=== PATIENT | female | born 1965 | race Caucasian/White ===

== ENCOUNTER 2020-06-11 13:46 | Outpatient (CLI) | payer OTHER, SELFPAY ==
--- NOTE | ~2020-06-11 | MMUS_ITS ---
EXAMINATION: MM screen LT diag RT w amrit, US breast RT limited HISTORY: Screening left mammogram and right diagnostic mammogram for palpable lumps in the upper oute r quadrant and inner right breast. TECHNIQUE: Craniocaudal, mediolateral, and mediolateral oblique 3-D tomosynthesis images of the left breast were performed and synthetic 2-D images were generated. Craniocaudal and mediolateral oblique 3-D tomosynthesis images of the right breast were performed and synthetic 2-D images were generated. CAD analysis was submitted and interpreted. High resolution limited right breast ultrasound was perfo rmed. COMPARISON: 12/14/2018, 05/03/2017, 07/03/2015, 05/13/2015 BREAST PARENCHYMAL COMPOSITION: The breasts are almost entirely fatty. FINDINGS: MAMMOGRAPHIC FINDINGS: No mammographic correlate is identified for the reported palpable abnormalities in the upper outer qu adrant of the right breast or the inner right breast. There is no evidence of suspicious mass, calcif ication, or architectural distortion in either breast to suggest malignancy. There has been no suspi cious interval change. ULTRASOUND: There is no evidence of focal abnormal solid or cystic lesion in the vicinity of the reported palpabl e abnormalities of the right breast. IMPRESSION: 1. No specific mammographic or sonographic correlate is identified for the reported palpable abnormal ities of concern in the right breast. Further evaluation at this time should be based on clinical ass essment. Continued follow-up physical examination is recommended. 2. Recommend routine screening mammography in one year. BI-RADS Category 1: Negative Reviewed, dictated and finalized at location A. IMPRESSION: 1. No specific mammographic or sonographic correlate is identified for the repo rted palpable abnormalities of concern in the right breast. Further evaluation at this time should be based on clinical assessment. Continued follow-up physic al examination is recommended. 2. Recommend routine screening mammography in one year. BI-RADS Category 1: Negative
== END 2020-06-11 13:47 | disposition home or self-care (01) ==
PROVIDERS: PCP Family Medicine; Visit Provider Family Medicine
DX: Z12.31 Encounter for screening mammogram for malignant neoplasm of breast (principal); N63.11 Unspecified lump in the right breast, upper outer quadrant
CPT/HCPCS: 76642; 77063; 77065; 77067

== ENCOUNTER 2020-11-23 09:42 | Outpatient (CLI) | payer OTHER, SELFPAY ==
--- NOTE | ~2020-11-23 | MR_ITS ---
EXAMINATION: MR brain/brain stem wo/w con EXAM DATE: 11/23/2020 10:38 INDICATION: G43.109 - Migraine with aura, not intractable, without status migrainosus. Tremors in abrams ds. TECHNIQUE: Magnetic resonance imaging (MRI) of the brain/brain stem obtained without contrast. Sagit hollis T1, axial diffusion, gradient echo (T2*), T1, T2, FLAIR sequences obtained. Patient was then inj ected with 20 cc intravenous Multihance contrast. Axial and coronal postcontrast T1 weighted sequence s obtained. There is no prior study for comparison. FINDINGS: There are no areas of restricted diffusion to suggest acute infarction. There is no acute hemorrhage seen on the T2*, a hemosiderin sensitive sequence. No intraparenchymal brain mass. The ve ntricles are normal in size. There are no extra-axial collections. Flow voids are seen in the cereb ral arteries on the T2-weighted sequences consistent with their expected patency. The orbits are unr emarkable. Soft tissue is unremarkable. There are no areas of abnormal enhancement on the postcont rast images. IMPRESSION: 1. Normal brain MRI examination. Reviewed, dictated and finalized at location B. FACTURING COORDINATOR
[2020-11-23 10:17] LABS: Estimated Glomerular Filt Rate > 60
== END 2020-11-23 09:43 | disposition home or self-care (01) ==
PROVIDERS: PCP Physician Assistant; Visit Provider Physician Assistant
DX: G43.109 Migraine with aura, not intractable, without status migrainosus (principal); R25.1 Tremor, unspecified
CPT/HCPCS: 70553; A9577

== ENCOUNTER 2021-05-06 17:38 | Outpatient (CLI) | payer OTHER, SELFPAY ==
--- NOTE | ~2021-05-06 | XR_ITS ---
EXAMINATION: XR hip BI 2V w AP pelvis DATE: 05/06/2021 18:00 INDICATION: Chronic hip pain, left greater than right. TECHNIQUE: Anteroposterior view of the pelvis and anteroposterior and frog-leg lateral views of the l eft hip and anteroposterior and frog-leg lateral views of the right hip and were obtained. COMPARISON: CT abdomen and pelvis dated 11/18/2018 FINDINGS: Alignment is normal. No fracture or suspected avascular necrosis. Bilateral hip joint spaces appear n ormal however there are small marginal osteophytes about the femoral heads and acetabula consistent w ith at least mild osteoarthritis. Small amount of heterotopic ossification along the lateral margin o f the subtrochanteric right femur which is likely sequela of old trauma. Mild left-sided and mild to moderate right-sided sacroiliac osteoarthritis. Moderate to severe lower lumbar spondylosis. Several phleboliths in the pelvis. IMPRESSION: 1. Mild bilateral hip osteoarthritis. No acute osseous abnormality. 2. Moderate to severe lower lumbar spondylosis. Reviewed, dictated and finalized at location A.
[2021-05-06 18:20] LABS: Basophils Absolute Auto 0.1 K/mm3 (0.0-0.1); Basophils Percent Auto 0.7 % (0.2-1.2); Eosinophils Absolute Auto 0.1 K/mm3 (0-0.3); Eosinophils Percent Auto 1.4 % (0-4.4); Hemoglobin 13.3 g/dL (12.0-15.0); Immature Granulocyte Absolute 0.01 K/mm3 (0.00-0.031); Immature Granulocyte Percent A 0.1 % (0-0.5); Lymphocytes Absolute Auto 2.89 K/mm3 (0.9-3.2); Lymphocytes Percent Auto 34.2 % (18.3-44.2); Mean Corpuscular HGB Conc 32.4 g/dl (32-36); Mean Corpuscular Hemoglobin 29.8 pg (26-34); Mean Corpuscular Volume 91.7 fl (80-100); Mean Platelet Volume 10.2 fl (7.4-10.4); Monocytes Absolute Auto 0.8 K/mm3 (0.1-0.6); Neutrophils Absolute Auto 4.6 K/mm3 (1.3-6.7); Neutrophils Percent Auto 54.6 % (45.5-73.1); Platelet Count Result 347 k/mm3 (150-375); Red Blood Count 4.47 M/mm3 (4.2-5.4); Red Cell Distribution Width 12.2 % (11.5-14.5); White Blood Count 8.5 K/mm3 (4.5-10.0)
[2021-05-06 18:56] LABS: Erythrocyte Sedimentation Rate 21 mm/hr (0-20)
[2021-05-06 19:22] LABS: Iron 65 ug/dL (37-170)
[2021-05-06 19:32] LABS: Percent Iron Saturation 19 % (20-50)
[2021-05-10 11:56] LABS: ANA Pattern Nuclear, Speckled; ANA Titer 1:40 (Negative); Anti Nuclear Antibody Titer 1:40 (Negative)
[2021-05-10 22:04] LABS: CRP, High Sensitivity 3.4 mg/L (***)
== END 2021-05-06 17:39 | disposition home or self-care (01) ==
PROVIDERS: PCP Internal Medicine; Visit Provider Internal Medicine
DX: R21 Rash and other nonspecific skin eruption (principal); R53.1 Weakness; R53.82 Chronic fatigue, unspecified; R25.1 Tremor, unspecified; F41.9 Anxiety disorder, unspecified; Z86.69 Personal history of other diseases of the nervous system and sense organs; F32.9 Major depressive disorder, single episode, unspecified; M79.7 Fibromyalgia; M16.0 Bilateral primary osteoarthritis of hip; M47.896 Other spondylosis, lumbar region
CPT/HCPCS: 36415; 73521; 82728; 83540; 83550; 85025; 85652; 86038; 86039; 86141

== ENCOUNTER 2021-05-18 07:32 | Outpatient (CLI) | payer OTHER, SELFPAY ==
--- NOTE | ~2021-05-18 | MR_ITS ---
EXAMINATION: MR brain/brain stem wo con DATE: 05/18/2021 08:24 INDICATION: Weakness. Migraine headaches. TECHNIQUE: Magnetic resonance imaging (MRI) of the brain and brainstem was performed without intraven ous contrast. Sequences included sagittal and axial T1-weighted SE, axial diffusion-weighted FS SE, a xial T2*-weighted GRE, axial T2-weighted FLAIR Propeller, and axial T2-weighted Propeller. Apparent d iffusion coefficient (ADC) maps were created. COMPARISON: MRI dated 11/23/2020. FINDINGS: Brain parenchymal volume is normal for age. Normal hightower-white differentiation. No evidence for acute intracranial infarction, hemorrhage, mass or mass effect. Structures of the posterior fossa including 7/8th cranial nerve complexes are normal. Midline sagittal images are unremarkable. No suresh triculomegaly or midline shift. Orbits are symmetric without disconjugate gaze. IMPRESSION: 1. Unremarkable MRI of the brain. Reviewed, dictated and finalized at location B.
== END 2021-05-18 07:33 | disposition home or self-care (01) ==
LOC: ANHIMG 07:38
PROVIDERS: PCP Internal Medicine; Visit Provider Internal Medicine
DX: R53.1 Weakness (principal); H53.9 Unspecified visual disturbance; R53.82 Chronic fatigue, unspecified
CPT/HCPCS: 70551

== ENCOUNTER 2021-06-12 19:11 | Emergency (ER) | payer OTHER, SELFPAY ==
[2021-06-12 19:20] VITALS: BP 151/84; PULSE 94; RESP 18; TEMP 36.9; O2SAT 99
--- NOTE | 2021-06-12 19:27 | ED.NAVMDI ---
HPI - Nausea/Vomiting/Diarrhea General Chief complaint: Nausea/Vomiting/Diarrhea Stated complaint: Reaction to new medication Time Seen by Provider: 06/12/21 19:27 History of Present Illness HPI Narrative: Severe headache and nausea since yesterday. The headache is similar to her usual migraine, but worse. The nausea is associated with frequent belching. She believes that her symptoms are due to a new medication that she started for Parkinson's disease, Pramipexole. She was on it for less than 24 hours when symptoms first appeared. She did not take her dose tonight. She also recently started treatment with citalopram. She reports that she skipped her dose yesterday, but took it today. Related Data Home Medications Medication Instructions Recorded Confirmed pramipexole 0.25 mg tablet 0.25 mg PO TID 06/11/21 06/11/21 Allergies Allergy/AdvReac Type Severity Reaction Status Date / Time No Known Allergies Allergy Verified 06/12/21 19:30 Review of Systems Review of Systems: All systems reviewed & are unremarkable except as noted in HPI and below Constitutional: Constitutional: Denies fever(s) Eyes: Eyes: Denies change in vision and Reports photophobia Cardiovascular: Cardiovascular: Denies chest pain Respiratory: Respiratory: Denies dyspnea Gastrointestinal: Gastrointestinal: Denies abdominal pain, Denies diarrhea, Reports nausea and Denies vomiting Genitourinary: Genitourinary: Reports no additional female genitourinary complaints Neurologic: Denies dizziness and Denies weakness Psychiatric: Psychiatric: Reports anxiety PMFSH Past Medical History Medical History Anxiety and depression Arthritis delivery delivered x4 82,84,87,93 Depression Fatigue Fibromyalgia syndrome Generalized weakness History of Lyme disease Malar rash Mitral valve regurgitation GAVIOTA on CPAP Pulmonary hypertension Tremor of right hand Vision changes Surgical History Surgical History History of appendectomy 1984 History of D&C 15yrs old History of hysterectomy 2015 still has ovaries S/P laparoscopic surgery ovary drained x2 Family History Family History Father Heart disease Mother Hypertension Depression Sibling Depression Thyroid disorder Unknown Asthma Shwachman-Jane syndrome Grandparent Cancer Hypertension Thyroid disorder Grandparent Heart disease Other Carcinoma of colon Family history of arthritis Family history of migraine headaches Family history of obesity Family history of osteoporosis Social History Social History Smoking status: Never smoker Second hand tobacco smoke exposure: No Smoking end date: 11/29/82 Alcohol intake: never Substance use: never Exam Const: General: no acute distress and alert Nutritional Appearance: obese Orientation/consciousness: patient oriented x3 Other: Frequent belching HENMT: Head: normal to inspection Neck: Neck: normal visual inspection Resp: Effort & Inspection: normal respiratory effort Auscultation: clear to auscultation bilaterally Cardio: Rate: regular rate Rhythm: regular rhythm GI: GI Palp: Yes Soft to palpation, No Tenderness to palpation present (GI), No Guarding due to palpation present (GI) and No Rebound tenderness present Skin: General skin exam: normal color Neuro: General: patient oriented x3, moves all extremities and CN's II-XI intact bilaterally Speech: normal speech Other: right hand tremor Extrem: General: normal to inspection Psych: Affect: Anxious affect present Course Vital Signs Vital signs: Vital Signs Temperature 36.9 C 06/12/21 19:20 Pulse Rate 94 06/12/21 19:20 Respiratory Rate 18 06/12/21 19:20 Blood Pressure 151/84 H 06/12/21
--- NOTE | 2021-06-12 20:00 | PC.NURSE ---
Pt aware of need for urine sample, unable to void at this time. Refusing straight catheter at this time. Urine cup at bedside.
[2021-06-12 20:03] LABS: Basophils Percent Auto 0.4 % (0.2-1.2); Eosinophils Absolute Auto 0.1 K/mm3 (0-0.3); Eosinophils Percent Auto 1.1 % (0-4.4); Hematocrit 41.7 % (37.0-47.0); Hemoglobin 13.6 g/dL (12.0-15.0); Immature Granulocyte Absolute 0.03 K/mm3 (0.00-0.031); Immature Granulocyte Percent A 0.3 % (0-0.5); Lymphocytes Percent Auto 22.4 % (18.3-44.2); Mean Corpuscular HGB Conc 32.6 g/dl (32-36); Mean Corpuscular Hemoglobin 29.3 pg (26-34); Mean Corpuscular Volume 89.9 fl (80-100); Mean Platelet Volume 9.9 fl (7.4-10.4); Monocytes Absolute Auto 0.9 K/mm3 (0.1-0.6); Monocytes Percent Auto 8.3 % (2.6-8.5); Neutrophils Percent Auto 67.5 % (45.5-73.1); Platelet Count Result 331 k/mm3 (150-375); Red Blood Count 4.64 M/mm3 (4.2-5.4); Red Cell Distribution Width 12.4 % (11.5-14.5); White Blood Count 10.3 K/mm3 (4.5-10.0)
[2021-06-12] MEDS: SODIUM CHLORIDE 0.9% IV 1,000 ML 999 ML IV CONT (20:10)
[2021-06-12] MEDS: diphenhydrAMINE HCl INJ 50 MG/ML VIAL IV PUSH (20:10)
[2021-06-12] MEDS: PROCHLORPERAZINE EDISYLATE 10 MG/2 ML VIAL IV PUSH (20:10)
[2021-06-12 20:13] LABS: Alanine Aminotransferase 52 U/L (4-35); Albumin Level 4.6 g/dL (3.5-5.1); Alkaline Phosphatase 114 U/L (38-126); Anion Gap 8 mmol/L (8-16); Aspartate Amino Transferase 47 U/L (14-36); Bilirubin,Total 1.3 mg/dL (0.2-1.3); Blood Urea Nitrogen 20 mg/dL (7-17); Calcium 9.6 mg/dL (8.4-10.2); Carbon Dioxide 30 mmol/L (22-30); Chloride 97 mmol/L (98-107); Estimated CRCL calculation 132 ml/min; Estimated Glomerular Filt Rate > 60; Glucose 123 mg/dL (65-105); Lipase 39 U/L (23-300); Potassium 3.3 mmol/L (3.4-5.0); Sodium 135 mmol/L (137-145)
[2021-06-12 20:32] VITALS: BP 124/69; PULSE 73; RESP 24; O2SAT 94
--- NOTE | 2021-06-12 20:46 | ECG_ITS ---
Measurements Intervals Amber Rate: 87 P: 35 GA: 148 QRS: 4 QRSD: 94 T: 39 QT: 382 QTc: 461 Interpretive Statements SINUS RHYTHM DELAYED PRECORDIAL R/S TRANSITION CONSIDER INFERIOR INFARCT, AGE INDETERMINATE BORDERLINE ST-T WAVE ABNORMALITY- ANT/HIGH LAT LEADS BASELINE ARTIFACT- II, AVF, V3-V6 ABNORMAL ECG Electronically Signed On 06-13-2021 6:43:53 CDT by He Frias D.O.
[2021-06-12 21:02] VITALS: BP 121/67; PULSE 84; RESP 15; O2SAT 95
[2021-06-12 21:32] VITALS: BP 102/69; PULSE 85; RESP 23; O2SAT 95
[2021-06-12 22:10] LABS: Add Urine Microscopic? YES; Appearance Urine Clear (Clear); Bilirubin Urine Negative (Negative); Blood Urine 1+ (Negative); Color Urine Yellow (Yellow); Glucose Urine UA Negative (Negative); Ketones Urine Trace mg/dL (Negative); Leukocyte Esterase Ur 2+ LEU/UL (Negative); Mucus Urine Few /lpf; Nitrate Urine Negative (Negative); Protein Urine 1+ mg/dL (Negative); RBC Urine 21-50 /hpf (0-2); Squamous Epithelial Cell Urine Few /hpf (Few); Urobilinogen Urine Negative mg/dL (<2.0); WBC Urine 31-50 /hpf
[2021-06-12 22:14] LABS: Specific Grav Ur 1.034 (1.001-1.035)
[2021-06-12 22:30] VITALS: BP 116/77; PULSE 91; RESP 16; O2SAT 98
== END 2021-06-12 22:31 | disposition home or self-care (01) ==
PROVIDERS: Emergency Provider Emergency Medicine; PCP Internal Medicine
DX: R51.9 Headache, unspecified (principal); R11.0 Nausea; M19.90 Unspecified osteoarthritis, unspecified site; M79.7 Fibromyalgia; I34.0 Nonrheumatic mitral (valve) insufficiency; G47.33 Obstructive sleep apnea (adult) (pediatric); I27.20 Pulmonary hypertension, unspecified
CPT/HCPCS: 36415; 80053; 81001; 83690; 85025; 87086; 93005; 96361; 96365; 96375; 99284; J0131; J0780; J1200; J7030

== ENCOUNTER → 2021-06-27 07:02 | Outpatient (CLI) | payer OTHER, SELFPAY ==
[2021-06-27 18:53] LABS: SARS-CoV-2 RNA PCR Negative
== END ==
PROVIDERS: PCP Internal Medicine; Visit Provider Internal Medicine
DX: R43.0 Anosmia (principal); J06.9 Acute upper respiratory infection, unspecified; Z20.822 Contact with and (suspected) exposure to COVID-19
CPT/HCPCS: C9803; U0003; U0005

== ENCOUNTER 2021-06-30 13:10 | Outpatient (CLI) | payer OTHER, SELFPAY ==
--- NOTE | ~2021-06-30 | XR_ITS ---
XR chest 2V DATE: 06/30/2021 13:29 INDICATION: Acute upper respiratory infection. TECHNIQUE: 2 views COMPARISON: 07/04/2019 2 view chest FINDINGS: Normal heart size. No hilar or mediastinal enlargement. No pulmonary infiltrate or consolidation, pleural effusion or pulmonary vascular congestion or pneumo thorax. Osteopenia. IMPRESSION: No active cardiopulmonary disease Reviewed, dictated and finalized at location B.
== END 2021-06-30 13:11 | disposition home or self-care (01) ==
PROVIDERS: PCP Internal Medicine; Visit Provider Internal Medicine
DX: J06.9 Acute upper respiratory infection, unspecified (principal)
CPT/HCPCS: 71046

== ENCOUNTER → 2021-09-04 02:31 | Outpatient (CLI) | payer OTHER, SELFPAY ==
[2021-09-04 17:37] LABS: SARS-CoV-2 RNA PCR Negative
== END ==
PROVIDERS: PCP Internal Medicine; Visit Provider Internal Medicine
DX: R68.89 Other general symptoms and signs (principal); Z20.822 Contact with and (suspected) exposure to COVID-19
CPT/HCPCS: C9803; U0003; U0005

== ENCOUNTER 2021-09-20 08:25 | Outpatient (CLI) | payer OTHER, SELFPAY ==
[2021-09-20 09:30] LABS: Alanine Aminotransferase 27 U/L (4-35); Albumin Level 4.4 g/dL (3.5-5.1); Alkaline Phosphatase 84 U/L (38-126); Anion Gap 7 mmol/L (8-16); Aspartate Amino Transferase 31 U/L (14-36); Bilirubin,Total 1.5 mg/dL (0.2-1.3); Blood Urea Nitrogen 17 mg/dL (7-17); Calcium 9.6 mg/dL (8.4-10.2); Carbon Dioxide 32 mmol/L (22-30); Chloride 100 mmol/L (98-107); Estimated Glomerular Filt Rate > 60; Glucose 106 mg/dL (65-110); Potassium 3.5 mmol/L (3.4-5.0); Sodium 139 mmol/L (137-145)
== END 2021-09-20 08:26 | disposition home or self-care (01) ==
LOC: ANHLAB 08:27
PROVIDERS: PCP Internal Medicine; Visit Provider Internal Medicine
DX: F41.9 Anxiety disorder, unspecified (principal); M79.7 Fibromyalgia
CPT/HCPCS: 36415; 80053

== ENCOUNTER 2021-09-25 17:30 | Outpatient (CLI) | payer OTHER, SELFPAY ==
--- NOTE | ~2021-09-25 | XR_ITS ---
EXAMINATION: XR chest 2V 09/25/2021 18:01 INDICATION: Chronic cough PROCEDURE: 2 view chest COMPARISON: Comparison to multiple prior studies sequentially, with oldest reviewed study dated 11/2014. FINDINGS: The lungs are clear. Chronic lingular atelectasis/scarring. The cardiomediastinal silhouett e is within normal limits. There are no pleural effusions. There is no pneumothorax suspected. IMPRESSION: 1: NO ACUTE CARDIOPULMONARY DISEASE. Reviewed, dictated and finalized at location A.
== END 2021-09-25 17:31 | disposition home or self-care (01) ==
LOC: ANHIMG 17:40
PROVIDERS: PCP Nurse Practitioner Family; Visit Provider Nurse Practitioner Family
DX: R05.9 Cough, unspecified (principal)
CPT/HCPCS: 71046

== ENCOUNTER 2021-10-08 15:56 | Outpatient (CLI) | payer OTHER, SELFPAY ==
--- NOTE | ~2021-10-08 | CT_ITS ---
EXAMINATION: CT diagnostic chest wo con DATE: 10/08/2021 16:20 INDICATION: Chronic cough TECHNIQUE: Computed tomography (CT) of the chest was performed without intravenous contrast. The dose -length product was 369.15 mGy-cm. Automated exposure control and iterative reconstruction technique were employed. COMPARISON: CT dated 04/18/2019 FINDINGS: Heart size is normal. No significant pleural or pericardial effusion. Minimal atheroscleros is. No thoracic lymphadenopathy. Upper abdomen is unremarkable. There are areas of chronic atelectasi s in the right upper lobe, right middle lobe and lingula. There is dependent atelectasis. No endobron chial lesions. No pneumothorax. There is a 7 mm groundglass nodule in the left lower lobe, image 104, likely benign. No endobronchial lesions. There is a 4 mm nodule in the left upper lobe, coronal imag e 52. IMPRESSION: 1. Groundglass nodule left lower lobe measuring 7 mm. 4 mm left upper lobe nodule. Consider follow-up CT chest in 12 months. 2: Chronic bilateral atelectasis. Reviewed, dictated and finalized at location A. GAGE LOAN OFFICER ORIGINATOR IMPRESSION: 1. Groundglass nodule left lower lobe measuring 7 mm. 4 mm left upper lobe nodu le. Consider follow-up CT chest in 12 months. 2: Chronic bilateral atelectasis.
--- OUTSIDE RECORDS SUMMARY | 2021-10-08 22:06 | XMS_ITS | Referral Summary ---
:1965 Author Organization [facility] Address [address] [place] [id number] [place] [address] Care Team Providers Name Role Phone Nancy Alvares Primary Care Provider Reason for Referral Procedure (Routine) - New Request Specialty Diagnoses / Procedures Referred By Contact Refer red To Contact Diagnoses Chronic cough Nancy Alvares FNP Procedures Complete PFT (pre/post Jostin, Lung Vol, Diff Capacity) ([id number], [id number], [id number], [id number]) [address] [place] [address] Referral ID Status Reason Start Date Expiration Date Visits V isits Requested Authorized [id number] New Request 10/06/2021 11/06/2022 1 1 FRONT END WEB DEVELOPER Consultation (Routine) - New Request Specialty Diagnoses / Procedures Referred By Contact Refer red To Contact SLEEP & RESPIRATORY Diagnoses Chronic cough Nancy Alvares FNP [facility] [phone] [place] [phone] Fax: Referral ID S
== END 2021-10-08 15:57 | disposition home or self-care (01) ==
PROVIDERS: PCP Nurse Practitioner Family; Visit Provider Nurse Practitioner Family
DX: R05.3 Chronic cough (principal); R91.8 Other nonspecific abnormal finding of lung field
CPT/HCPCS: 71250

== ENCOUNTER 2021-11-06 14:29 | Outpatient (CLI) | payer OTHER, SELFPAY ==
--- NOTE | 2021-11-07 17:05 | WPDPFTINT ---
PFT Procedure Performed PFT Procedure Performed Spirometry with Pre/Post Bronchodilator Plethysmography (Lung Vol) Diffusing Cap (DLCO) Flow Vol Loop PFT Interpretation Lung volumes were measured with the body plethysmography method. The diminished lung volumes are indicative of a restrictive respiratory disease. Spirometry showed normal expiratory flow rates and a normal FEV1 to FVC ratio of 80%. Following administration of a bronchodilator, there was no significant increase in expiratory flow rates. Lung diffusion capacity is within the normal range at 94% predicted. The flow volume loop is unremarkable. Overall, the pulmonary function testing is consistent with obesity. Clinical correlation advised. Impression: Mild restrictive respiratory disease. Lung diffusion capacity within normal range
== END 2021-11-06 14:30 | disposition home or self-care (01) ==
PROVIDERS: PCP Nurse Practitioner Family; Visit Provider Nurse Practitioner Family
DX: R05.3 Chronic cough (principal); R94.2 Abnormal results of pulmonary function studies
CPT/HCPCS: 94060; 94726; 94729

== ENCOUNTER 2021-11-11 16:13 | Outpatient (CLI) | payer OTHER, SELFPAY ==
[2021-11-11 16:52] LABS: Basophils Absolute Auto 0.1 K/mm3 (0.0-0.1); Basophils Percent Auto 0.6 % (0.2-1.2); Eosinophils Absolute Auto 0.1 K/mm3 (0-0.3); Hematocrit 41.9 % (37.0-47.0); Hemoglobin 13.5 g/dL (12.0-15.0); Immature Granulocyte Absolute 0.03 K/mm3 (0.00-0.031); Immature Granulocyte Percent A 0.3 % (0-0.5); Lymphocytes Absolute Auto 2.87 K/mm3 (0.9-3.2); Lymphocytes Percent Auto 25.2 % (18.3-44.2); Mean Corpuscular HGB Conc 32.2 g/dl (32-36); Mean Corpuscular Hemoglobin 29.5 pg (26-34); Mean Corpuscular Volume 91.5 fl (80-100); Mean Platelet Volume 9.8 fl (7.4-10.4); Monocytes Absolute Auto 0.9 K/mm3 (0.1-0.6); Monocytes Percent Auto 7.7 % (2.6-8.5); Neutrophils Absolute Auto 7.4 K/mm3 (1.3-6.7); Neutrophils Percent Auto 65.2 % (45.5-73.1); Platelet Count Result 356 k/mm3 (150-375); Red Blood Count 4.58 M/mm3 (4.2-5.4); Red Cell Distribution Width 13.2 % (11.5-14.5); White Blood Count 11.4 K/mm3 (4.5-10.0)
== END 2021-11-11 16:14 | disposition home or self-care (01) ==
PROVIDERS: PCP Nurse Practitioner Family; Visit Provider Nurse Practitioner Family
DX: R05.3 Chronic cough (principal)
CPT/HCPCS: 36415; 85025

== ENCOUNTER → 2021-12-12 00:52 | Outpatient (CLI) | payer OTHER, SELFPAY ==
[2021-12-13 18:18] LABS: SARS-CoV-2 RNA PCR Positive
== END ==
PROVIDERS: PCP Nurse Practitioner Family; Visit Provider Nurse Practitioner Family
DX: U07.1 COVID-19 (principal)
CPT/HCPCS: C9803; U0003; U0005

== ENCOUNTER 2022-07-17 14:43 | Outpatient (CLI) | payer OTHER, SELFPAY ==
--- NOTE | ~2022-07-17 | US_ITS ---
EXAMINATION: US pelvic complete w TV DATE: 07/17/2022 15:24 INDICATION: Pelvic and perineal pain Comparison:Ultrasound dated 05/01/2017 TECHNIQUE: Multiple transabdominal and endovaginal sonographic images of the pelvis performed. FINDINGS: The uterus is surgically absent. The right ovary measures 1.7 x 1.7 x 1 cm. Normal doppler signal in the right ovaries. The left ovary is not visualized, likely atrophic. There is no free fluid in the pelvis. There are no abnormal masses seen on either side. IMPRESSION: 1. Unremarkable pelvic ultrasound post hysterectomy. Reviewed, dictated and finalized at location B.
== END 2022-07-17 14:44 | disposition home or self-care (01) ==
LOC: ANHIMG 14:44
PROVIDERS: PCP Nurse Practitioner Family; Visit Provider Student in an Organized Health Care Education/Training Program
DX: R10.2 Pelvic and perineal pain (principal)
CPT/HCPCS: 76830; 76856

== ENCOUNTER 2022-09-26 09:38 | Outpatient (CLI) | payer OTHER, SELFPAY ==
--- NOTE | ~2022-09-26 | MM_ITS ---
EXAMINATION: MM screening [facility] BI w amrit HISTORY: Screening TECHNIQUE: Craniocaudal and mediolateral oblique 3-D tomosynthesis images were obtained and synthetic 2-D images were generated. CAD analysis was submitted and interpreted. COMPARISON: Comparison to multiple prior studies sequentially, with oldest reviewed study dated 10/30. BREAST PARENCHYMAL COMPOSITION: There are scattered areas of fibroglandular density. FINDINGS: There is no evidence of suspicious mass, calcification, or architectural distortion to sugg est malignancy in either breast. There has been no suspicious interval change. IMPRESSION: 1. No mammographic evidence of malignancy. 2. Recommend routine screening mammography in one year. BI-RADS Category 1: Negative Reviewed, dictated and finalized at location A.
--- NOTE | ~2022-09-26 | DEXA_ITS ---
Bone Density Report Name: LUZ DOUGLAS Age: 57 Sex: Female Ethnicity: White Date of : 1965 Indication: postmenopausal; screening for osteoporosis; hysterectomy; Referring Provider: JULIANA MORALES Study: Bone densitometry was performed. Exam Date: September 26, 2022 Accession number: [id number] Bone Density: Region BMD T-score Z-score Classification AP Spine(L1-L4) 0.899 -1.3 -0.1 Osteopenia Femoral Neck (Left) 0.709 -1.3 -0.1 Osteopenia Total Hip (Left) 0.891 -0.4 0.4 Normal Femoral Neck (Right) 0.677 -1.5 -0.4 Osteopenia Total Hip (Right) 0.892 -0.4 0.4 Normal Total Hip Mean 0.892 -0.4 0.4 Normal World Health Organization criteria for BMD impression classify patients as: Normal (T-score at or above -1.0), Osteopenia (T-score between -1.0 and -2.5), or Osteoporosis (T-score at or below -2.5). 10-year Fracture Risk(1): Major Osteoporotic Fracture 7.1% Hip Fracture 0.6% Reported Risk Factors: [place] (), Neck BMD=0.677, BMI=32.9 (1) FRAX(R) Version 3.08. Fracture probability calculated for an untreated patient. Fracture probability may be lower if the patient has received treatment. Clinical Information Provided by Patient: Has the following medical conditions: Hysterectomy Patient maximum height was 66 Menopause Age: 50 No regular weight bearing exercise Drinks caffeinated beverages Onset of menses at age 14 Number of children 4 Impression: The patient has low bone mass, based on the Right Femoral Neck T-score. The patient has an estimated ten-year risk of hip fracture of 0.6% and an estimated ten-year risk of major fracture of 7.1%, based on the WHO FRAX algorithm. Discussion: BONE DENSITY IS LOW AT ONE OR MORE SKELETAL SITES. This patient's lowest T-score is low at one or more skeletal sites. It meets the World Health Organization's (WHO) criteria for ?low bone mass? (T-score between -1.0 and -2.5). The patient's 10-year risk of fracture as calculated by FRAX is less than the threshold where pharmacological therapy is recommended by the National Osteoporosis Foundation (NOF). However, all treatment decisions require clinical judgment and consideration of individual patient factors, including patient preferences, comorbidities, previous drug use, risk factors not captured in the FRAX model (e.g., frailty, falls, vitamin D deficiency, increased bone turnover, interval significant decline in bone density) and possible under or overestimation of fracture risk by FRAX. The patient should follow a healthful lifestyle (good nutrition with adequate calcium and vitamin D, and appropriate weight-bearing exercise). Follow-Up: Consider repeating this study in 2 to 3 years to reassess this patient's status, or sooner if there is some new clinical indication. R
== END 2022-09-26 09:39 | disposition home or self-care (01) ==
PROVIDERS: PCP Nurse Practitioner Family; Visit Provider Student in an Organized Health Care Education/Training Program
DX: Z12.31 Encounter for screening mammogram for malignant neoplasm of breast (principal); Z78.0 Asymptomatic menopausal state; M85.88 Other specified disorders of bone density and structure, other site; M85.852 Other specified disorders of bone density and structure, left thigh; M85.851 Other specified disorders of bone density and structure, right thigh
CPT/HCPCS: 77063; 77067; 77080

== ENCOUNTER 2022-11-19 14:36 | Outpatient (CLI) | payer OTHER, SELFPAY ==
[2022-11-19 14:56] LABS: Basophils Absolute Auto 0.1 K/mm3 (0.0-0.1); Basophils Percent Auto 0.7 % (0.2-1.2); Eosinophils Absolute Auto 0.1 K/mm3 (0-0.3); Eosinophils Percent Auto 1.4 % (0-4.4); Hemoglobin 13.4 g/dL (12.0-15.0); Immature Granulocyte Absolute 0.02 K/mm3 (0.00-0.031); Immature Granulocyte Percent A 0.3 % (0-0.5); Lymphocytes Absolute Auto 2.45 K/mm3 (0.9-3.2); Lymphocytes Percent Auto 34.8 % (18.3-44.2); Mean Corpuscular HGB Conc 32.7 g/dl (32-36); Mean Corpuscular Hemoglobin 29.5 pg (26-34); Mean Corpuscular Volume 90.3 fl (80-100); Monocytes Absolute Auto 0.5 K/mm3 (0.1-0.6); Monocytes Percent Auto 7.7 % (2.6-8.5); Neutrophils Absolute Auto 3.9 K/mm3 (1.3-6.7); Neutrophils Percent Auto 55.1 % (45.5-73.1); Platelet Count Result 326 k/mm3 (150-375); Red Blood Count 4.54 M/mm3 (4.2-5.4); Red Cell Distribution Width 12.9 % (11.5-14.5); White Blood Count 7.1 K/mm3 (4.5-10.0)
[2022-11-19 15:07] LABS: Alanine Aminotransferase 23 U/L (6-35); Albumin Level 4.4 g/dL (3.5-5.1); Alkaline Phosphatase 74 U/L (38-126); Amylase 64 U/L (30-110); Anion Gap 6 mmol/L (8-16); Aspartate Amino Transferase 27 U/L (14-36); Bilirubin,Total 0.9 mg/dL (0.2-1.3); Blood Urea Nitrogen 19 mg/dL (7-17); Calcium 9.4 mg/dL (8.4-10.2); Carbon Dioxide 37 mmol/L (22-30); Chloride 96 mmol/L (98-107); Estimated Glomerular Filt Rate > 60; Glucose 106 mg/dL (65-110); Lipase 72 U/L (23-300); Potassium 3.5 mmol/L (3.4-5.0); Sodium 139 mmol/L (137-145)
== END 2022-11-19 14:37 | disposition home or self-care (01) ==
LOC: ANHLAB 14:39
PROVIDERS: PCP Nurse Practitioner Family; Visit Provider Nurse Practitioner Family
DX: R10.12 Left upper quadrant pain (principal); R11.0 Nausea
CPT/HCPCS: 36415; 80053; 82150; 83690; 85025

== ENCOUNTER 2022-11-25 10:58 | Outpatient (CLI) | payer OTHER, SELFPAY ==
--- NOTE | ~2022-11-25 | US_ITS ---
Abdominal Sonogram: Real-time sonographic imaging of the abdomen was performed. Clinical History: Abdominal pain Findings: The liver appears normal with no evidence of mass lesion or bile duct dilatation. Main por hollis vein demonstrates normal direction of flow. The spleen is normal in size without evidence of foca l lesion. The gallbladder is well distended, and appears normal with no evidence of gallstone or wal l thickening. The common bile duct measures 3 mm. The visualized pancreas, aorta, and IVC are unrema rkable. The right kidney measures 10.2 cm in length and the left kidney measures 11.2 cm. There is no hydronephrosis or renal calculus. Impression: Unremarkable abdominal ultrasound. Reviewed, dictated and finalized at location . ESS DIRECTOR Impression: Unremarkable abdominal ultrasound.
== END 2022-11-25 10:59 | disposition home or self-care (01) ==
PROVIDERS: PCP Nurse Practitioner Family; Visit Provider Nurse Practitioner Family
DX: R10.12 Left upper quadrant pain (principal); R11.0 Nausea
CPT/HCPCS: 76700

== ENCOUNTER 2022-12-22 16:15 | Outpatient (CLI) | payer OTHER, SELFPAY ==
[2022-12-22 16:45] LABS: Basophils Absolute Auto 0.1 K/mm3 (0.0-0.1); Basophils Percent Auto 0.5 % (0.2-1.2); Eosinophils Absolute Auto 0.2 K/mm3 (0-0.3); Eosinophils Percent Auto 1.7 % (0-4.4); Hematocrit 39.3 % (37.0-47.0); Hemoglobin 12.9 g/dL (12.0-15.0); Immature Granulocyte Absolute 0.03 K/mm3 (0.00-0.031); Immature Granulocyte Percent A 0.3 % (0-0.5); Lymphocytes Percent Auto 32.9 % (18.3-44.2); Mean Corpuscular HGB Conc 32.8 g/dl (32-36); Mean Corpuscular Hemoglobin 29.6 pg (26-34); Mean Corpuscular Volume 90.1 fl (80-100); Mean Platelet Volume 9.9 fl (7.4-10.4); Monocytes Absolute Auto 0.8 K/mm3 (0.1-0.6); Monocytes Percent Auto 7.8 % (2.6-8.5); Neutrophils Absolute Auto 5.7 K/mm3 (1.3-6.7); Neutrophils Percent Auto 56.8 % (45.5-73.1); Platelet Count Result 337 k/mm3 (150-375); Red Blood Count 4.36 M/mm3 (4.2-5.4); Red Cell Distribution Width 13.1 % (11.5-14.5)
[2022-12-22 16:55] LABS: Alanine Aminotransferase 34 U/L (6-35); Albumin Level 4.1 g/dL (3.5-5.1); Alkaline Phosphatase 68 U/L (38-126); Anion Gap 7 mmol/L (8-16); Aspartate Amino Transferase 23 U/L (14-36); Bilirubin,Total 0.6 mg/dL (0.2-1.3); Blood Urea Nitrogen 24 mg/dL (7-17); Calcium 9.5 mg/dL (8.4-10.2); Carbon Dioxide 33 mmol/L (22-30); Chloride 99 mmol/L (98-107); Estimated Glomerular Filt Rate > 60; Glucose 97 mg/dL (65-110); Lipase 57 U/L (23-300); Potassium 3.5 mmol/L (3.4-5.0); Sodium 139 mmol/L (137-145)
[2022-12-22 17:16] LABS: Erythrocyte Sedimentation Rate 16 mm/hr (0-20)
[2022-12-26 16:17] LABS: Vitamin B1 13 nmol/L (8-30)
== END 2022-12-22 16:16 | disposition home or self-care (01) ==
PROVIDERS: PCP Nurse Practitioner Family
DX: R41.3 Other amnesia (principal)
CPT/HCPCS: 36415; 80053; 83690; 84425; 85025; 85652; 86038

== ENCOUNTER 2022-12-29 16:25 | Outpatient (CLI) | payer OTHER, SELFPAY ==
--- NOTE | ~2022-12-29 | MR_ITS ---
EXAMINATION: MR brain/brain stem wo con DATE: 12/29/2022 16:58 INDICATION: Memory loss. TECHNIQUE: Magnetic resonance imaging (MRI) of the brain and brainstem was performed without intraven ous contrast. COMPARISON: Brain MRI 05/18/2021 FINDINGS: There is no intracranial hemorrhage, acute infarction, or abnormal intracranial mass lesion . There are scattered areas of nonspecific increased T2-weighted signal intensity in the cerebral whi te matter, which is within normal limits for the patient's age. The ventricles are normal in size. Th e mastoid air cells are normal. The paranasal sinuses are clear. The orbits are normal. IMPRESSION: 1. Normal aging brain. Reviewed, dictated and finalized at location A. BUILDER IMPRESSION: 1. Normal aging brain.
== END 2022-12-29 16:26 | disposition home or self-care (01) ==
PROVIDERS: PCP Nurse Practitioner Family
DX: R41.3 Other amnesia (principal)
CPT/HCPCS: 70551

== ENCOUNTER 2023-07-03 06:49 | Outpatient (CLI) | payer OTHER, SELFPAY ==
[2023-07-03 08:02] LABS: Basophils Absolute Auto 0.1 K/mm3 (0.0-0.1); Basophils Percent Auto 0.9 % (0.2-1.2); Eosinophils Absolute Auto 0.2 K/mm3 (0-0.3); Eosinophils Percent Auto 2.6 % (0-4.4); Hematocrit 43.7 % (37.0-47.0); Hemoglobin 14.2 g/dL (12.0-15.0); Immature Granulocyte Absolute 0.02 K/mm3 (0.00-0.031); Immature Granulocyte Percent A 0.3 % (0-0.5); Lymphocytes Absolute Auto 2.38 K/mm3 (0.9-3.2); Lymphocytes Percent Auto 34.6 % (18.3-44.2); Mean Corpuscular HGB Conc 32.5 g/dl (32-36); Mean Corpuscular Hemoglobin 29.3 pg (26-34); Mean Corpuscular Volume 90.1 fl (80-100); Mean Platelet Volume 10.5 fl (7.4-10.4); Monocytes Absolute Auto 0.6 K/mm3 (0.1-0.6); Monocytes Percent Auto 8.9 % (2.6-8.5); Neutrophils Absolute Auto 3.6 K/mm3 (1.3-6.7); Neutrophils Percent Auto 52.7 % (45.5-73.1); Platelet Count Result 329 k/mm3 (150-375); Red Blood Count 4.85 M/mm3 (4.2-5.4); Red Cell Distribution Width 12.6 % (11.5-14.5); White Blood Count 6.9 K/mm3 (4.5-10.0)
[2023-07-03 08:18] LABS: Potassium 3.4 mmol/L (3.4-5.0)
[2023-07-03 08:24] LABS: Alanine Aminotransferase 21 U/L (6-35); Albumin Level 4.5 g/dL (3.5-5.1); Alkaline Phosphatase 78 U/L (38-126); Anion Gap 6 mmol/L (8-16); Aspartate Amino Transferase 23 U/L (14-36); Bilirubin,Total 0.6 mg/dL (0.2-1.3); Blood Urea Nitrogen 20 mg/dL (7-17); Calcium 9.2 mg/dL (8.4-10.2); Carbon Dioxide 35 mmol/L (22-30); Chloride 97 mmol/L (98-107); Estimated Glomerular Filt Rate > 60; Glucose 100 mg/dL (65-110); Magnesium 2.1 mg/dL (1.6-2.3); Sodium 138 mmol/L (137-145); Uric Acid 5.8 mg/dL (2.5-7.5)
[2023-07-03 09:19] LABS: Folic Acid 19.5 ng/mL (2.76->20)
[2023-07-03 10:33] LABS: Vitamin D 25 Hydroxy 31.8 ng/mL
== END 2023-07-03 06:50 | disposition home or self-care (01) ==
PROVIDERS: PCP Nurse Practitioner Family; Visit Provider Nurse Practitioner
DX: I10 Essential (primary) hypertension (principal); F41.9 Anxiety disorder, unspecified; E53.8 Deficiency of other specified B group vitamins; E55.9 Vitamin D deficiency, unspecified
CPT/HCPCS: 36415; 80053; 82306; 82746; 83735; 84443; 84550; 85025; 86038

== ENCOUNTER 2023-07-13 16:20 | Outpatient (CLI) | payer OTHER, SELFPAY ==
--- NOTE | ~2023-07-13 | US_ITS ---
EXAMINATION: US carotid duplex BI DATE: 07/13/2023 17:54 INDICATION: Bilateral carotid bruits. TECHNIQUE: Grayscale, color Doppler, and pulsed Doppler images of the cervical carotid arteries were obtained. The degree of vessel stenosis is placed in one of the following categories: normal, <50%, 5 0-69%, >=70% but less than near-occlusion, near-occlusion, or total occlusion. Note that percent sten osis relative to normal distal artery lumen diameter is indirectly measured from velocity measurement s as described by Bart, et al. Radiology 2003; 229:340-346. COMPARISON: None. FINDINGS: RIGHT: The right common carotid artery (CCA) peak systolic velocity (PSV) is 110 cm/s. The right internal ca rotid artery (ICA) PSV is 97 cm/s. The right ICA end-diastolic velocity (EDV) is 27 cm/s. The right I CA/CCA PSV ratio is 0.9. Grayscale and color Doppler images yield an estimate of <50% diameter reduct ion from plaque in the ICA. There is antegrade flow in the right vertebral artery. LEFT: The left CCA PSV is 115 cm/s. The left ICA PSV is 97 cm/s. The left ICA EDV is 29 cm/s. The left ICA/ CCA PSV ratio is 0.8. Grayscale and color Doppler images yield an estimate of <50% diameter reduction from plaque in the ICA. There is antegrade flow in the left vertebral artery. IMPRESSION: 1. <50% stenosis in the right internal carotid artery. 2. <50% stenosis in the left internal carotid artery. Reviewed, dictated and finalized at location A.
== END 2023-07-13 16:21 | disposition home or self-care (01) ==
PROVIDERS: PCP Nurse Practitioner Family; Visit Provider Nurse Practitioner Family
DX: R09.89 Other specified symptoms and signs involving the circulatory and respiratory systems (principal); I65.23 Occlusion and stenosis of bilateral carotid arteries
CPT/HCPCS: 93880

== ENCOUNTER 2023-11-02 10:42 | Outpatient (CLI) | payer OTHER, SELFPAY ==
--- NOTE | ~2023-11-02 | MR_ITS ---
EXAMINATION: MR brain/brain stem wo/w con DATE: 11/02/2023 11:37 INDICATION: Intractable episodic headache TECHNIQUE: Magnetic resonance imaging (MRI) of the brain and brainstem was performed without and with 19 mL Multihance intravenous contrast. Sequences included sagittal and axial T1-weighted SE, axial d iffusion-weighted FS SE, axial 3D SWAN, axial T2*-weighted GRE, axial T2-weighted FLAIR, and axial T2 -weighted FSE. Postcontrast axial and coronal T1-weighted SE was obtained. Apparent diffusion coeffic ient (ADC) maps were created. COMPARISON: 12/29/2022 FINDINGS: There are no areas of restricted diffusion to suggest acute infarction. No intracranial hemorrhage or abnormal intracranial mass lesion. No interval change in a couple tiny foci of nonspecific increased T2-weighted signal intensity in the of left frontal parietal white matter which is within normal barajas its for age. There are no intraparenchymal signal abnormalities seen on the other pulse sequences. Th e ventricles are symmetric and normal in size. There are no abnormal extra-axial fluid collections. F low voids are seen in the cerebral arteries on the T2-weighted sequences consistent with their expect ed patency. Visualized orbits and soft tissues are unremarkable. There are no areas of abnormal enhan cement on the post contrast images. IMPRESSION: 1. Normal aging brain. Reviewed, dictated and finalized at location A. SCRIPTIONIST IMPRESSION: 1. Normal aging brain.
== END 2023-11-02 10:43 | disposition home or self-care (01) ==
PROVIDERS: PCP Nurse Practitioner Family; Visit Provider Registered Nurse
DX: R51.9 Headache, unspecified (principal); R41.3 Other amnesia; R26.89 Other abnormalities of gait and mobility; H53.8 Other visual disturbances
CPT/HCPCS: 70553; A9577

== ENCOUNTER 2023-11-24 10:54 | Outpatient (CLI) | payer OTHER, SELFPAY ==
[2023-11-24 11:39] LABS: Basophils Percent Auto 0.6 % (0.2-1.2); Eosinophils Absolute Auto 0.2 K/mm3 (0-0.3); Eosinophils Percent Auto 2.2 % (0-4.4); Hematocrit 42.9 % (37.0-47.0); Immature Granulocyte Absolute 0.02 K/mm3 (0.00-0.031); Immature Granulocyte Percent A 0.3 % (0-0.5); Lymphocytes Absolute Auto 2.27 K/mm3 (0.9-3.2); Lymphocytes Percent Auto 33.4 % (18.3-44.2); Mean Corpuscular HGB Conc 32.6 g/dl (32-36); Mean Corpuscular Volume 91.9 fl (80-100); Mean Platelet Volume 9.2 fl (7.4-10.4); Monocytes Absolute Auto 0.5 K/mm3 (0.1-0.6); Monocytes Percent Auto 7.5 % (2.6-8.5); Neutrophils Absolute Auto 3.8 K/mm3 (1.3-6.7); Platelet Count Result 360 k/mm3 (150-375); Red Blood Count 4.67 M/mm3 (4.2-5.4); Red Cell Distribution Width 13.2 % (11.5-14.5); White Blood Count 6.8 K/mm3 (4.5-10.0)
[2023-11-24 11:56] LABS: Alanine Aminotransferase 39 U/L (6-35); Albumin Level 4.6 g/dL (3.5-5.1); Alkaline Phosphatase 103 U/L (38-126); Anion Gap 11 mmol/L (8-16); Aspartate Amino Transferase 38 U/L (14-36); Bilirubin,Total 1.5 mg/dL (0.2-1.3); Blood Urea Nitrogen 15 mg/dL (7-17); Calcium 9.7 mg/dL (8.4-10.2); Carbon Dioxide 31 mmol/L (22-30); Chloride 96 mmol/L (98-107); Cholesterol 237 mg/dL (0-200); Estimated Glomerular Filt Rate > 60; Glucose 93 mg/dL (65-110); HDL Direct 78 mg/dL; Magnesium 1.9 mg/dL (1.6-2.3); Potassium 3.4 mmol/L (3.4-5.0); Sodium 138 mmol/L (137-145); Triglycerides 112 mg/dL (<150)
[2023-11-24 12:06] LABS: LDL Cholesterol Direct 110 mg/dL
[2023-11-24 12:41] LABS: Free T4 Free Thyroxine 1.25 ng/mL (0.78-2.19); Vitamin D 25 Hydroxy 31.9 ng/mL
[2023-11-24 13:02] LABS: Folic Acid > 20.0 ng/mL (2.76->20)
[2023-11-26 03:53] LABS: Thyroid Peroxidase Antibodies <1 IU/mL (<9)
[2023-11-29 06:41] LABS: Cyclic Citrullinated Peptide <16 Units (<20)
== END 2023-11-24 10:55 | disposition home or self-care (01) ==
LOC: ANHLAB 10:59
PROVIDERS: PCP Nurse Practitioner Family; Visit Provider Nurse Practitioner Family
DX: F32.1 Major depressive disorder, single episode, moderate (principal); M79.7 Fibromyalgia; E53.8 Deficiency of other specified B group vitamins
CPT/HCPCS: 36415; 80053; 80061; 82306; 82607; 82746; 83735; 84439; 84443; 85025; 86038; 86200; 86376

== ENCOUNTER 2023-11-26 10:32 | Outpatient (CLI) | payer OTHER, SELFPAY ==
--- NOTE | ~2023-11-26 | MMUS_ITS ---
EXAMINATION: MM diagnostic suzanne BI w amrit, US breast BI limited HISTORY: Right breast lump TECHNIQUE: ML, MLO and CC 3-D tomosynthesis images of both breasts were performed and synthetic 2-D i mages were generated. CAD analysis was submitted and interpreted. High resolution left subareolar and right targeted breast ultrasound was performed. COMPARISON: 09/26/2022 bilateral screening mammogram 06/11/2020 bilateral mammogram and a limited right breast ultrasound BREAST PARENCHYMAL COMPOSITION: The breasts are almost entirely fatty. FINDINGS: MAMMOGRAPHIC FINDINGS: An approximately 3 x 4.5 mm small opacity is noted subjacent to the nipple on the CC projection, with out apparent correlate on the MLO view. Otherwise no suspicious mass, architectural distortion, malignant calcification, skin thickening or r etraction of either breast is detected. ULTRASOUND: Left breast: No subareolar mass or suspicious shadowing is detected Right breast: Ultrasound examination at 2:00 10 cm from the nipple and 10:00 6 cm from the nipple rev eals no suspicious mass or suspicious shadowing, cyst or other significant sonographic abnormality. IMPRESSIONS: No mammographic or sonographic evidence of malignancy Routine annual mammographic screening is recommended BI-RADS Category 1: Negative Reviewed, dictated and finalized at location A. E HANDLER IMPRESSIONS: No mammographic or sonographic evidence of malignancy Routine annual mammographic screening is recommended BI-RADS Category 1: Negative IMPRESSIONS: No mammographic or sonographic evidence of malignancy Routine annual mammographic screening is recommended BI-RADS Category 1: Negative
== END 2023-11-26 10:33 | disposition home or self-care (01) ==
PROVIDERS: PCP Nurse Practitioner Family; Visit Provider Nurse Practitioner Family
DX: N63.10 Unspecified lump in the right breast, unspecified quadrant (principal); R92.8 Other abnormal and inconclusive findings on diagnostic imaging of breast; R41.3 Other amnesia; R26.89 Other abnormalities of gait and mobility; H53.8 Other visual disturbances
CPT/HCPCS: 76642; 77062; 77066; G0279

== ENCOUNTER 2023-12-30 13:07 | Outpatient (CLI) | payer BC, SELFPAY ==
--- NOTE | ~2023-12-30 | CT_ITS ---
CT Scan of the Chest without Contrast: Clinical Indication: Solitary pulmonary nodule Technique: Contiguous sections were acquired throughout the chest without intravenous contrast. Dose reduction technique was used on this scan by utilizing automated exposure control and iterative recon struction technique. The dose-length product (DLP) was 132.69 mGy-cm. COMPARISON: 10/08/2021 Findings: There is no evidence of any significant mediastinal, hilar or axillary lymphadenopathy. The mediastin al soft tissues appear normal. There is no evidence of pleural or pericardial effusion. There is focal scarring right middle lobe and lingula. No significant pulmonary nodule seen. Images through the upper abdomen reveal no abnormalities. Impression: Focal scarring right middle lobe and irregular. No other pulmonary reality evident. Reviewed, dictated and finalized at [facility]. GY CONSULTANT Impression: Focal scarring right middle lobe and irregular. No other pulmonary reality evid ent.
== END 2023-12-30 13:08 | disposition home or self-care (01) ==
PROVIDERS: PCP Nurse Practitioner Family; Visit Provider Nurse Practitioner Family
DX: R91.1 Solitary pulmonary nodule (principal)
CPT/HCPCS: 71250

== ENCOUNTER 2024-09-23 09:26 | Outpatient (CLI) | payer BC, SELFPAY ==
[2024-09-23 09:58] LABS: Basophils Absolute Auto 0.1 K/mm3 (0.0-0.1); Eosinophils Absolute Auto 0.2 K/mm3 (0-0.3); Eosinophils Percent Auto 3.6 % (0-4.4); Hematocrit 43.3 % (37.0-47.0); Immature Granulocyte Absolute 0.01 K/mm3 (0.00-0.031); Immature Granulocyte Percent A 0.2 % (0-0.5); Lymphocytes Absolute Auto 2.12 K/mm3 (0.9-3.2); Lymphocytes Percent Auto 34.5 % (18.3-44.2); Mean Corpuscular HGB Conc 32.3 g/dl (32-36); Mean Corpuscular Hemoglobin 29.5 pg (26-34); Mean Corpuscular Volume 91.2 fl (80-100); Mean Platelet Volume 9.9 fl (7.4-10.4); Monocytes Absolute Auto 0.4 K/mm3 (0.1-0.6); Monocytes Percent Auto 7.2 % (2.6-8.5); Neutrophils Absolute Auto 3.3 K/mm3 (1.3-6.7); Neutrophils Percent Auto 53.5 % (45.5-73.1); Platelet Count Result 332 k/mm3 (150-375); Red Blood Count 4.75 M/mm3 (4.2-5.4); Red Cell Distribution Width 12.6 % (11.5-14.5); White Blood Count 6.2 K/mm3 (4.5-10.0)
[2024-09-23 10:04] LABS: Add Urine Microscopic? YES; Appearance Urine Clear (Clear); Bacteria Urine None Seen /hpf; Bilirubin Urine Negative (Negative); Blood Urine Negative (Negative); Color Urine Yellow (Yellow); Glucose Urine UA Negative (Negative); Ketones Urine Negative (Negative); Leukocyte Esterase Ur Trace LEU/UL (Negative); Nitrate Urine Negative (Negative); Non Pathogenic Casts 0-2; Protein Urine Negative (Negative); RBC Urine 0-2 /hpf (0-2); Specific Grav Ur 1.014 (1.001-1.035); Squamous Epithelial Cell Urine None Seen /hpf (Few); WBC Urine 0-5 /hpf (0-3); pH Urine 8.5 (5.0-9.0)
[2024-09-23 10:09] LABS: Alanine Aminotransferase 23 U/L (6-35); Albumin Level 4.7 g/dL (3.5-5.1); Alkaline Phosphatase 74 U/L (38-126); Anion Gap 7 mmol/L (4-12); Aspartate Amino Transferase 23 U/L (14-36); Bilirubin,Total 0.8 mg/dL (0.2-1.3); Blood Urea Nitrogen 22 mg/dL (7-17); Calcium 9.7 mg/dL (8.4-10.2); Carbon Dioxide 36 mmol/L (22-30); Chloride 98 mmol/L (98-107); Cholesterol 207 mg/dL (0-200); Estimated Glomerular Filt Rate > 60; Glucose 99 mg/dL (65-110); HDL Direct 75 mg/dL; Potassium 3.7 mmol/L (3.4-5.0); Sodium 141 mmol/L (137-145); Triglycerides 46 mg/dL (<150)
[2024-09-23 10:17] LABS: Iron 83 ug/dL (37-170)
[2024-09-23 10:19] LABS: LDL Cholesterol Direct 98 mg/dL
[2024-09-23 10:26] LABS: Percent Iron Saturation 24 % (20-50)
[2024-09-23 10:37] LABS: Free T4 Free Thyroxine 1.38 ng/mL (0.78-2.19)
[2024-09-23 11:17] LABS: Folic Acid > 20.0 ng/mL (2.76->20)
[2024-09-23 13:26] LABS: Vitamin D 25 Hydroxy 34.4 ng/mL
== END 2024-09-23 09:27 | disposition home or self-care (01) ==
LOC: ANHLAB 09:31
PROVIDERS: PCP Nurse Practitioner Family; Visit Provider Nurse Practitioner Family
DX: I10 Essential (primary) hypertension (principal); E66.811 Obesity, class 1; E66.09 Other obesity due to excess calories; Z68.33 Body mass index [BMI] 33.0-33.9, adult; F41.9 Anxiety disorder, unspecified; E53.8 Deficiency of other specified B group vitamins; E04.9 Nontoxic goiter, unspecified; D50.9 Iron deficiency anemia, unspecified
CPT/HCPCS: 36415; 80053; 80061; 81001; 82306; 82607; 82728; 82746; 83540; 83550; 83735; 84439; 84443; 84550; 85025

== ENCOUNTER 2024-10-20 13:14 | Outpatient (CLI) | payer BC, SELFPAY ==
--- NOTE | ~2024-10-20 | MM_ITS ---
EXAMINATION: MM diagnostic suzanne BI w amrit HISTORY: Annual follow-up TECHNIQUE: 3-D tomosynthesis images of the breasts were performed and synthetic 2-D images were gener ated. CAD analysis was submitted and interpreted. COMPARISON: 11/26/2023, 09/26/2022, 12/14/2018 BREAST PARENCHYMAL COMPOSITION:Not Dense. The breasts are almost entirely fatty FINDINGS: Parenchymal pattern of both breasts is unchanged. No suspicious mass lesion or distortion. No suspicious microcalcification. IMPRESSION: No mammographic evidence for malignancy. BI-RADS Category 1: Negative Reviewed, dictated and finalized at location . TAL EQUIPMENT SPECIALIST
== END 2024-10-20 13:15 | disposition home or self-care (01) ==
LOC: ANHIMG 13:16
PROVIDERS: PCP Nurse Practitioner Family; Visit Provider Nurse Practitioner Family
DX: N60.11 Diffuse cystic mastopathy of right breast (principal); N60.12 Diffuse cystic mastopathy of left breast
CPT/HCPCS: 77062; 77066; G0279

== ENCOUNTER 2025-01-17 10:55 | Outpatient (CLI) | payer BC, SELFPAY ==
--- NOTE | ~2025-01-17 | DEXA_ITS ---
Bone Density Report Name: LUZ DOUGLAS Age: 59 Sex: Female Ethnicity: White Date of : 1965 Indication: osteopenia; hysterectomy; Referring Provider: YANET, NICOLE Study: Bone densitometry was performed. Exam Date: January 17, 2025 Accession number: [id number] Bone Density: Region BMD T-score Z-score Classification AP Spine(L1-L4) 0.954 -0.8 0.6 Normal Femoral Neck (Left) 0.710 -1.3 0.0 Osteopenia Total Hip (Left) 0.881 -0.5 0.5 Normal Femoral Neck (Right) 0.708 -1.3 0.0 Osteopenia Total Hip (Right) 0.910 -0.3 0.7 Normal Total Hip Mean 0.895 -0.4 0.6 Normal World Health Organization criteria for BMD impression classify patients as: Normal (T-score at or above -1.0), Osteopenia (T-score between -1.0 and -2.5), or Osteoporosis (T-score at or below -2.5). 10-year Fracture Risk(1): Major Osteoporotic Fracture 6.9% Hip Fracture 0.4% Reported Risk Factors: [place] (), Neck BMD=0.710, BMI=34.5 (1) FRAX(R) Version 3.08. Fracture probability calculated for an untreated patient. Fracture probability may be lower if the patient has received treatment. Previous Exams: Region Exam Age BMD T-score BMD Change BMD Change Date g/cm2 vs Baseline vs Previous AP Spine (L1-L4) 01/17/2025 59 0.954 -0.8 0.055 (6.1%)* 0.055 (6.1%)* 09/26/2022 57 0.899 -1.3 Total Hip(Left) 01/17/2025 59 0.881 -0.5 -0.011 (-1.2%) -0.011 (-1.2%) 09/26/2022 57 0.891 -0.4 Total Hip(Right) 01/17/2025 59 0.910 -0.3 0.018 (2.0%) 0.018 (2.0%) 09/26/2022 57 0.892 -0.4 *Denotes significance at 95% confidence level, LSC for AP Spine = 0.022 g/cm2, LSC for Total Hip = 0.027 g/cm2 Clinical Information Provided by Patient: Has used the following medications: Vitamin D Has the following medical conditions: Hysterectomy Patient maximum height was 66 Menopause Age: 50 No regular weight bearing exercise Does not regularly consume dairy products Drinks caffeinated beverages Onset of menses at age 14 Number of children 4 Impression: The patient has low bone mass, based on the Left Femoral Neck T-score. The patient has an estimated ten-year risk of hip fracture of 0.4% and an estimated ten-year risk of major fracture of 6.9%, based on the WHO FRAX algorithm. No significant bone loss was observed. Discussion: BONE DENSITY IS LOW AT ONE OR MORE SKELETAL SITES. This patient's lowest T-score is low at one or more skeletal sites. It meets the World Health Organization's (WHO) criteria for ?low bone mass? (T-score between -1.0 and -2.5). The patient's 10-year risk of fracture as calculated by FRAX is less than the threshold where pharmacological therapy is recommended by the National Osteoporosis Foundation (NOF). However, all treatment decisions require clinical judgment and consideration of individual patient factors, including patient preferences, comorbidities, previous drug use, risk factors not captured in the FRAX model (e.g., frailty, falls, vitamin D deficiency, increased bone turnover, interval significant decline in bone density) and possible under or overestimation of fracture risk by FRAX. The patient should follow a healthful lifestyle (good nutrition with adequate calcium and vitamin D, and appropriate weight-bearing exercise). Follow-Up: Consider repeating this study in 2 to 3 years to reassess this patient's status, or sooner if there is some new clinical indication. Reported by: MIYA on 01/17/2025 11:29:00 AM. Reviewed, dictated and finalized at location A. AMILCAR
--- OUTSIDE RECORDS SUMMARY | 2025-01-17 11:00 | XMS_ITS | Patient Health Summary ---
Author Organization [facility] Address [address] [place] [address] Care Team Providers Care Trench Digger Name Role Phone Unavailable Primary Care Provider Unavailabl e Note from [facility],non-owned Affiliates and Associated Physician Practices is amultiple site organization consisting of ambulatory clinics and hospital sitesin [place], [place], [place] and [place]. This disclosure is being madepursuant to the Care Everywhere program and may not contain all information available regarding this patient. Last updated 18.[facility] Social History Tobacco Use Types Packs/Day Years Used Date Smoking Tobacco: Never Assessed Sex and Gender Information Value Date Recorded Sex Assigned at Not on file Gender Identity Not on file Sexual Orientation Not on file Procedures * DERMATOPATHOLOGY(Performed 10/12/2024) Results * DERMATOPATHOLOGY (10/12/2024 2:07 PM [employer]) Case Report Dermatopathology Report Case: [id number] Authorizing Provider: Bharati Jason DO Collected: 10/12/2024 02:07 PM Ordering Location: [facility] - Received: 10/13/2024 11:00 AM DermPath Lab Pathologist: Kerry Garcia MD Specimen: Skin, left medial cheek 12:27 PM [employer] DERMATOPATHOLOGY LABORATORY Final Diagnosis Specimen A. SKIN, left medial cheek: ACTINIC KERATOSIS (L57.0) 4 12:27 PM [employer] DERMATOPATHOLOGY LABORATORY Clinical History R/O BCC 4 12:27 PM [employer] DERMATOPATHOLOGY LABORATORY Gross Description Specimen A: Received is one formalin filled container labeled with the patient's name and designated left medial cheek. The specimen consists of a shave biopsy measuring 4x2x1 mm. Jar 0. 4 12:27 PM [facility] DERMATOPATHOLOGY LABORATORY Microscopic Description Specimen A. SKIN, left medial cheek: There is focal parakeratosis. The lower half of the epidermis shows disorderly maturation of keratinocytes with nuclear pleomorphism. 4 12:27 PM [facility] DERMATOPATHOLOGY LABORATORY Disclaimer An external and internal positive and negative controls are appropriate for the histochemical, immunohistochemical and immunofluorescence stain(s) in this case (if any), except where stated explicitly. The performance characteristics of the stain(s) cited in this report were developed and its performance characteristic determined by the Dermatopathology Laboratory at [facility], directed by Dr. Pebbles Leavitt. These tests need not be, and therefore are not, approved by the [place] Food and Drug Administration. The tests are used for clinical purposes. Billing Codes Specimen Charges Stain Charges 54793 1 4 12:27 PM [facility] DERMATOPATHOLOGY LABORATORY Embedded Images 4 12:27 PM [facility] DERMATOPATHOLOGY LABORATORY Pathology/Cytolo gy TISSUE SPECIMEN FROM SKIN / Unknown 10/12/2024 2:07 PM [employer] 10/13/2024 11:00 AM [employer] Bharati Jason DO LAB - PATHOLOGY/C YTOLOGY ORDERABLES Performing Organization Address City/State/[facility] Co de Phone Number DERMATOPATHOLOGY LABORATORY [facility] - Department of Dermatology [address], [address] [phone]
--- OUTSIDE RECORDS SUMMARY | 2025-01-17 11:00 | XMS_ITS | Clinical Summary ---
Author Organization [facility] Address [address] [place] [address] Care Team Providers Care Senior Product Manager Name Role Phone Unavailable Primary Care Provider Unavailabl e Source Comments [facility],non-owned Affiliates and Associated Physician Practices is amultiple site organization consisting of ambulatory clinics and hospital sitesin [place], [place], [place] and [place]. This disclosure is being madepursuant to the Care Everywhere program and may not contain all information available regarding this patient. Last updated 18.[facility] Social History Tobacco Use Types Packs/Day Years Used Date Smoking Tobacco: Never Assessed Sex and Gender Information Value Date Recorded Sex Assigned at Not on file Gender Identity Not on file Sexual Orientation Not on file Plan of Treatment Health Maintenance Due Date Last Done Comments COLOGUARD (AGES 45-75) - COL ON CA SCREENING 1964 COLON MONITORING 1964 COLONOSCOPY - COLON CA SCREENING 1964 CT COLONOGRAPHY - COLON CA SCREENING 1964 Colorectal Cancer Screening 1964 FIT - COLON CA SCREENING 1964 FLEX SIG - COLON CA SCREENING 1964 LIPID TESTING 1964 MAMMOGRAM 1964 PAP SMEAR 1964 HIV SCREENING 1979 HEPATITIS C SCREENING 08/25/1982 DTAP/TDAP/TD VACCINES (1 - Tdap) 1983 PNEUMOCOCCAL VACCINE 50+ (1 of 1 - PCV) 2014 ZOSTER VACCINE (1 of 2) 2014 COVID-19 VACCINE ( - 2023-2 5 season) 2024 INFLUENZA VACCINE (#1) 2024 DEPRESSION SCREENING 11/29/2024 Respiratory Syncytial Virus (RSV) Vaccine Pt: or over 60 yrs (1 - 1-dose 75+ series) 2039 HEPATITIS B VACCINE Aged Out No longe r eligible based on patient's age to complete this topic HIB VACCINE Aged Out No longer eligi ble based on patient's age to complete this topic HPV VACCINE Aged Out No longer eligi ble based on patient's age to complete this topic MENINGOCOCCAL (Group B) VACCINE Aged Out No longer eligible based on patient's age to complete this topic MENINGOCOCCAL VACCINE Aged Out No maciel celeste eligible based on patient's age to complete this topic PNEUMOCOCCAL VACCINE Aged Out No long er eligible based on patient's age to complete this topic
--- OUTSIDE RECORDS SUMMARY | 2025-01-17 11:00 | XMS_ITS | Referral Summary ---
Author Organization [facility] Address [address] [place] [address] Care Team Providers Care Feed Grinder Name Role Phone Unavailable Primary Care Provider Unavailabl e Source Comments [facility],non-owned Affiliates and Associated Physician Practices is amultiple site organization consisting of ambulatory clinics and hospital sitesin [place], [place], [place] and [place]. This disclosure is being madepursuant to the Care Everywhere program and may not contain all information available regarding this patient. Last updated 18.[facility] Social History Tobacco Use Types Packs/Day Years Used Date Smoking Tobacco: Never Assessed Sex and Gender Information Value Date Recorded Sex Assigned at Not on file Gender Identity Not on file Sexual Orientation Not on file Plan of Treatment Not on file
--- OUTSIDE RECORDS SUMMARY | 2025-01-17 11:00 | XMS_ITS | Clinical Summary ---
Author Organization [facility] [address] Address [address] [place] [address] Care Team Providers Care Information Tech Name Role Phone Nancy Alvares NP Primary Care Provider Allergies No known active allergies Medications losartan (COZAAR) 50 mg tablet take 1 tablet by oral route every day 0 0 5 Active aspirin-acetam inophen-caffei ne (EXCEDRIN EXTRA STRENGTH) 250-250-65 mg per tablet take 0.5 Tablet by Oral route once as needed for migraine 0 0 5 Active indapamide (LOZOL) 2.5 mg tablet take 1 tablet by oral route 2 times every day in the morning 0 0 5 Active eletriptan (RELPAX) 40 mg tablet Take 1 tablet (40 mg total) by mouth as needed Active LORazepam (ATIVAN) 0.5 mg tablet Take 1 tablet (0.5 mg total) by mouth as needed 5 9 Active Symbicort 80-4.5 mcg/actuation inhaler 1 Active HYDROcodone-ch lorpheniramine ER (TUSSIONEX PENNKINETIC) 2-1.6 mg/mL ER suspension Take 2.5 mL by mouth every 12 (twelve) hours as needed 1 Active ondansetron (ZOFRAN) 4 mg tablet TAKE 1 TABLET BY MOUTH EVERY 6 HOURS NEEDED FOR NAUSEA OR VOMITING 1 Active folic acid (FOLVITE) 1 mg tablet 2 Active Ciprodex otic suspension 3 Active methylPREDNISo lone (MEDROL DOSEPACK) 4 mg Dosepack 3 Active methylPREDNISo lone (MEDROL) 4 mg tablet 3 Active omeprazole (PriLOSEC) 40 mg capsule TAKE 1 CAPSULE(40 MG) BY MOUTH DAILY 30 capsule 11 4 Active pramipexole (MIRAPEX) 0.25 mg tabletIndicati ons:Parkinson disease (HCC) TAKE 1 TABLET(0.25 MG) BY MOUTH THREE TIMES DAILY 90 tablet 4 Active cholecalcifero l (VITAMIN D-3) 50,000 unit capsule Take 1 capsule (50,000 Units total) by mouth once a week 4 Active fluticasone propionate (FLONASE) 50 mcg/actuation nasal spray Administer 2 sprays into affected nostril(s) daily 3 Active omeprazole (PriLOSEC) 40 mg capsule Take 1 capsule (40 mg total) by mouth 2 (two) times a day 60 capsule 11 5 Active ergocalciferol (VITAMIN D) 50,000 unit capsule 2 025 Discontin ued(Alter brian therapy) sodium, potassium & mag sulfates (SUPREP BOWEL KIT) 17.5-3.13-1.6 gram recon solnIndication s:Bowel Evacuation Please follow the instructions from your [facility] GI providers office, not the instructions on the packaging 360 mL 4 025 Discontin ued(Thera py completed ) Active Problems Problem Noted Date Diagnosed Date Epigastric pain 10/12/2024 Abdominal pain 10/12/2024 Left carotid bruit 10/03/2024 Personal history of colonic polyps 11/16/2022 Overview (11/16/2022): Added automatically from request for surgery [id number] Family history of malignant neoplasm of gastrointestinal tract 11/16/2022 Overview (11/16/2022): Added automatically from request for surgery [id number] Parkinson disease 06/10/2021 Assessment & Plan (11/18/2021 4:42 PM [employer]): Patient continues at this time on pramipexole 0.25 mg t.i.d. with good tolerability and symptomatic reduction in her parkinsonian features. I have renewed her pramipexole at present dosing and she will follow-up in neurology clinic in 1 year. Assessment & Plan (06/10/2021 1:12 PM CDT): Patient has a 9 month history of progressively worsening right upper extremity tremor with evidence on examination of a pill-rolling rhythmical tremor isolated to the right hand in addition to cogwheeling and diminished arm swing on the right as well consistent with Parkinson's disease. After discussed minute various treatment options, I will prescribe her a trial of pramipexole 0.25 mg t.i.d.. I will see her back in 3 months time for reassessment on treatment. Hypersomnolence 01/26/2019 Squeezing chest pain 01/26/2019 SOB (shortness of breath) 04/08/2018 Nausea 08/24/2017 Abdominal bloating 08/24/2017 Left upper quadrant pain 08/24/2017 Altered bowel function 08/24/2017 GAVIOTA (obstructive sleep apnea) 01/21/2017 Overview (03/04/2017): Obstructive sleep apnea Essential hypertension 04/01/2016 Overview (03/04/2017): Essential hypertension with goal blood pressure less than 130/80 Non-cardiac chest pain 04/01/2016 Overview (03/04/2017): Non-cardiac chest pain Palpitations 05/01/2015 Overview (03/04/2017): Palpitations Atypical chest pain 05/01/2015 Overview (03/04/2017): Atypical chest pain Mitral valve insufficiency 05/01/2015 Overview (03/04/2017): Mitral regurgitation Snoring 05/01/2015 Overview (03/04/2017): Snoring Fen-phen exposure 05/01/2015 Overview (03/04/2017): Fen-phen exposure Pulmonary hypertension 05/01/2015 Overview (03/04/2017): Pulmonary hypertension Anemia 02/16/2013 Resolved Problems Problem Noted Date Diagnosed Date Resolved Date Hypertension 05/01/2015 09/03/2020 Overview (03/04/2017): Hypertension Encounters Date Type Department Care Team Description 12/22/2024 Telephone [facility] Gastroenterology [address] [facility] Medical Office [address] [place] [id number] Ayanna Venegas RN GI path results 12/19/2024 8:43 AM [employer] Anesthesia Event [facility] Endoscopy [address] [place] [address] Grupo Orozco MD Boyle, Christine Michelle, STEFANO 12/19/2024 8:30 AM [employer] - 12/19/2024 9:00 AM [employer] Surgery [facility] [address] [place] [address] Catrachito Link MD COLON BIOPSY 12/19/2024 7:11 AM [employer] - 12/19/2024 10:15 AM [employer] Hospital Encounter [facility] [address] [place] [address] Catrachito Link MD Epigastric pain; Abdominal pain Discharge Disposition: Discharge to home or self care 12/04/2024 Telephone [facility] Gastroenterology [address] [place] [address] Medical Office [address] [place] [phone] Bailey Merrill RN Reschedule 10/23/2024 3:00 PM [employer] Ancillary Procedure [facility] Vascular and Vein Surgery at [address] [place] [address] Left carotid bruit from Last 3 Months Surgical History Surgery Date Site/Laterality Comments SECTION x4 HYSTERECTOMY 11/29/2014 - 11/28/2015 COLONOSCOPY POLYPECTOMY Medical History Medical History Date Comments Ventricular trigeminy episode af ter hysterectomy Lyme disease Hypertension Mitral valve regurgitation GAVIOTA (obstructive sleep apnea) Parkinson's disease (HCC) Possi ble early onset did not blanca pramipexole Colon polyp Family History Medical History Relation Name Comments Heart attack Father Nikhil Myocardial infa rction; Cause of : Myocardial infarction Breast cancer Maternal Grandmother Family history of malignant neoplasm of breast - (Added by TW Conv) Depression Mother Joan Cancer Mother's Sister Colon cancer Heart attack Paternal Grandfather Hisea Myocard ial infarction; Cause of : Myocardial infarction Colon cancer Paternal Grandmother Family history of colon cancer - (Added by TW Conv) Cancer Sister 1 Maryjane Leezy Heart attack Sister 1 Maryjane Leezy Myocardial infa rction; Depression Sister 2 Maryjane Fibromyalgia Sister 2 Maryjane Relation Name Status Comments Father Nikhil Maternal Grandmother Mother Joan Alive Mother's Sister Colon cancer Paternal Grandfather Hisea Paternal Grandmother Sister 1 Maryjane Leezy Sister 2 Maryjane Alive Social History Tobacco Use Types Packs/Day Years Used Date Smoking Tobacco: Former Cigarettes Q uit: 08/19/1987 Smokeless Tobacco: Never Tobacco Cessation:Counseling Given: Not Answered Alcohol Use Standard Drinks/Week Comments No 0 (1 standard drink = 0.6 oz pur e alcohol) AUDIT-C Answer Date Recorded Q1: How often do you have a drink containing alcohol? Never 12/19/2024 Q2: How many drinks containi ng alcohol do you have on a typical day when you are drinking? Patient does not drink Q3: How often do you have si x or more drinks on one occasion? Never 12/19/2024 Personal Safety Answer Date Recorded Have you ever been in or are you currently in a harmful physical or emotional relationship or is someone making you feel afraid or unsafe? Denies 12/19/2024 Comments No Sex and Gender Information Value Date Recorded Sex Assigned at Not on file Legal Sex Female 9:09 PM [employer] Gender Identity Not on file Sexual Orientation Not on file Obstetrics History Last Filed Vital Signs Vital Sign Reading Time Taken Comments Blood Pressure 131/76 12/19/2024 9:40 AM [employer] Pulse 66 12/19/2024 9:40 AM [employer] Temperature 36.3 C (97.3 F) 12/19/2024 9:15 AM [employer] Respiratory Rate 20 12/19/2024 9:40 AM [employer] Oxygen Saturation 100% 12/19/2024 9:40 AM [employer] Inhaled Oxygen Concentration - - Weight 90.3 kg (199 lb) 12/19/2024 7:50 AM [employer] Height 167.6 cm (5' 6 ) 12/19/2024 7:50 AM [employer] Body Mass Index 32.12 12/19/2024 7:50 AM [employer] Plan of Treatment Scheduled Procedures Name Priority Associated Diagnoses Date/Ti me COLONOSCOPY Colon cancer screening Health Maintenance Due Date Last Done Comments Breast Cancer Screening-Mammogram 1965 Depression Screening 1965 Hepatitis C Screening 1965 Hepatitis B Screening 1982 Regular Well Visit/Exam 18-64 1982 Zoster Vaccine (1 of 2) 2014 Covid-19 Vaccine (2 - season) 2024 09/19/2021 DTaP/Tdap/Td Vaccine (3 - Td or Tdap) 11/14/2030 11/14/2020, 04/28/2008 Colon Cancer Screening-Colonoscopy 12/19/2034 12/19/2024, 11/18/2022, 09/21/2017 Influenza Vaccine Completed 09/11/2024, , 08/21/2022, Additional history exists Colon Cancer Screening-CT Colonography Discontinued 12/19/2024, 11/18/2022, 09/21/2017 Colon Cancer Screening-DNA Stool Discontinued 12/19/2024, 11/18/2022, 09/21/2017 Colon Cancer Screening-FIT Discontinued 12/19, 11/18/2022, 09/21/2017 Colon Cancer Screening-Sigmoidoscopy Discontinued 12/19/2024, 11/18/2022, 09/21/2017 Pneumococcal vaccine <65 Aged Out No longer eligible based on patient's age to complete this topic Procedures Procedure Name Priority Date/Time Associated Diagnosis Comments COLONOSCOPY 12/19/2024 8:53 AM [employer] SURGICAL PATHOLOGY Routine 12/19/2024 8:51 AM [employer] Epigastric pain Abdominal pain ESOPHAGOGASTRODUODENOSCOPY BIOPSY 12/19/2024 8:43 AM [employer] Epigastric pain Abdominal pain COLON BIOPSY 12/19/2024 8:43 AM [employer] Epigastric pain Abdominal pain EGD 12/19/2024 8:41 AM [employer] US CAROTIDS DUPLEX BILATERAL Schedule Routine, Read Routine (OP Routine) 10/23/2024 3:28 PM [employer] Left carotid bruit from Last 3 Months Results * Colonoscopy (12/19/2024 8:53 AM [employer]) Anatomical Region Laterality Modality Other Narrative Procedure Note Catrachito Link MD - 12/19/2024 8:53 AM CST ENDOSCOPY LAB Patient Name: Bijal Douglas Procedure Date: 12/19/2024 8:53 AM Date of : 1965 Admit Type: Outpatient Age: 59 Gender: Female Attending MD: Catrachito Link M.D. Room: [facility] ENDOSCOPY ROOM 04 Note Status: Finalized Procedure: Colonoscopy Indications: Abdominal pain, FH colon cancer Providers: Catrachito Link M.D. Referring MD: Jamel Aly.N.P. Medicines: Monitored Anesthesia Care Complications: No immediate complications. Estimated Blood Loss: Estimated blood loss: none. Procedure: Pre-Anesthesia Assessment: - The risks and benefits of the procedure and the sedation options and risks were discussed with the patient. All questions were answered and informed consent was obtained. - Immediately prior to administration ofmedications, the patient was re-assessed for adequacy to receive sedatives. The benefits, risks and alternatives of theprocedure and sedation were discussed and informed consentwas obtained. All questions were answered. Please referto the signed informed consent document in the medical record. The scope was passed under direct vision.The [id number] was introduced through the anusand advanced to the cecum, identified by appendiceal orifice and ileocecal valve. The colonoscopy was performed without difficulty. The patient tolerated the procedure well. The quality of the bowel preparation was good. The bowel preparation usedwas SUPREP via split dose instruction. Findings: The perianal and digital rectal examinations were normal. Two sessile polyps were found in the cecum. The polyps were 3 to 4 mmin size. These polyps were removed with a jumbo cold forceps. Resectionand retrieval were complete. The exam was otherwise without abnormality on direct and retroflexion views. Impression: - Two 3 to 4 mm polyps in the cecum, removed with a jumbo cold forceps. Resected and retrieved. - The examination was otherwise normal on directand retroflexion views. Recommendation: - Return to referring physician as previously scheduled. - Await pathology results. - Repeat colonoscopy in 5 years for surveillance. Attending Participation: I personally performed the entire procedure. Electronically signed by Catrachito Link M.D. Catrachito Link M.D. 12/19/2024 9:20:46 AM Number of Addenda: 0 Note Initiated On: 12/19/2024 8:53 AM us Catrachito Link MD ENDOSCOPY PROCEDURES Edite d Result - Final * Surgical pathology (12/19/2024 8:51 AM [employer]) Tissue (Gastric/Stomach biopsy) 12/19/2024 8:51 AM [employer] Tissue (Polyp(s), colon/colorectal, esophageal, gastric) 12/19/2024 9:04 AM [employer] Narrative [facility] - 12/21/2024 1:46 PM [employer] EPIC results best viewed via link to PDF [facility] [place] [address] Note to Patients: This report may contain a detailed description of human tissue sent by a health care provider to the laboratory for pathologic evaluation. The content of this report is essential for diagnosis and may provide important critical findings. This information may be unfamiliar to patients to review without a medical professional present. It is advised that the patient review this report in the presence of a health care provider who can answer questions and explain the details. SURGICAL PATHOLOGY REPORT FINAL Patient Name: BIJAL DOUGLAS Gender: F : 1965 (Age: 59) Address: [address] [place] [address] Hospital #: [id number] Taken:12/19/2024 Received:12/19/2024 Reported: 12/21/2024 Patient Type: [facility] EP SAME Client [facility] Service: Gastro Location: Physician(s): Homer Hicks FNP Diagnosis: A. Stomach, random biopsy: - Antral mucosa with reactive epithelial changes. - No Helicobacter pylori is seen. B. Colon, polyps, polypectomy: - Polypoid colonic mucosa with lymphoid aggregate and reactive epithelial changes. [facility]/12/20/2024 13:00 By this signature, I attest that the above diagnosis is based upon my personal examination of the slides(and/or other material indicated in the diagnosis). Naheed Jacinto MD, PHD Report Electronically Reviewed and Signed Out By Naheed Jacinto MD, PHD 12/21/2024 13:46:38 Diagnosis Comment Part B: Multiple additional deeper tissue sections were examined. History: The patient is a 59-year-old woman with epigastric pain and abdominal pain. Operative procedure: Colonoscopy and EGD. Specimen(s) Received: A: Biopsies random stomach B: Polyps colon Gross Description: Received in two formalin jars labeled with the patient's identifiers. A. Labeled biopsies random stomach are multiple irregular tissue fragment(s) (measuring 0.9 x 0.4 x 0.1 cm in aggregate. Stained with eosin). Labeled A1. Jar 0. B. Labeled polyps colon are multiple irregular tissue fragment(s) (measuring 2.0 x 0.4 x 0.1 cm in aggregate. Stained with eosin). Labeled B1. Jar 0. cnewho/12/19/2024 12:18 PA(s): ALVERTO Moise By this signature, I attest that the above diagnosis is based upon my personal examination of the slides(and/or other material). Addenda/Procedures Microscopic slide review and interpretation for this case was performed at [facility], Department of Surgical Pathology, [address] [facility], [place] [id number], [place] [address] CLIA # [id number] The performance characteristics of some immunohistochemical stains, fluorescence in-situ hybridization tests and immunophenotyping by flow cytometry cited in this report (if any) were determined by the Surgical Pathology and Flow Cytometry Departments at [facility] as part of an ongoing senior quality assurance specialist program and in compliance with federally mandated regulations drawn from the Clinical Laboratory Improvement Act of 1988 (CLIA '88). Some of these tests rely on the use of analyte specific reagents and are subject to specific labeling requirements by the US Food and Drug Administration. Such diagnostic tests may only be performed in a facility that is certified by the Department of Health and Human Services as a high complexity laboratory under CLIA '88. The FDA has determined that such clearance or approval is not necessary. This test is used for clinical purposes. It should not be regarded as investigational or for research. Nevertheless, federal rules concerning the medical use of analyte specific reagents require that the following disclaimer be attached to the report: This test was developed and its performance characteristics determined by the Surgical Pathology and Flow Cytometry Departments of [facility]. It has not been cleared or approved by the U. S. Food and Drug Administration. IMAGES AND SCANNED DOCUMENTS, IF INCLUDED, ONLY VIEWABLE IN PDF VERSION OF REPORT Catrachito Link MD LAB PATHOLOGY ORDERABLES F inal Result [facility] [phone] * EGD (12/19/2024 8:41 AM [employer]) Anatomical Region Laterality Modality Other Narrative Procedure Note Catrachito Link MD - 12/19/2024 8:41 AM CST ENDOSCOPY LAB Patient Name: Bijal Douglas Procedure Date: 12/19/2024 8:41 AM Date of : 1965 Admit Type: Outpatient Age: 59 Gender: Female Attending MD: Catrachito Link M.D. Room: [facility] ENDOSCOPY ROOM 04 Note Status: Finalized Procedure: Upper GI endoscopy Indications: Abdominal pain Providers: Catrachito Link M.D. Referring MD: Palomo Aly Medicines: Monitored Anesthesia Care Complications: No immediate complications. Estimated Blood Loss: Estimated blood loss: none. Procedure: Pre-Anesthesia Assessment: - The risks and benefits of the procedure and the sedation options and risks were discussed with the patient. All questions were answered and informed consent was obtained. - Immediately prior to administration ofmedications, the patient was re-assessed for adequacy to receive sedatives. After obtaining informed consent, the endoscope was passed under direct vision. Throughout theprocedure, the patient's blood pressure, pulse, and oxygen saturations were monitored continuously. The [id number] was introduced through the mouth,and advanced to the second part of duodenum. The upperGI endoscopy was accomplished without difficulty. The patient tolerated the procedure well. Findings: The examined esophagus was normal. Localized moderately erythematous mucosa without bleeding was foundin the gastric antrum. Biopsies were taken with a cold forceps for histology. The examined duodenum was normal. Impression: - Normal esophagus. - Erythematous mucosa in the antrum. Biopsied. - Normal examined duodenum. Recommendation: - Return to referring physician as previously scheduled. - Await pathology results. - Perform a colonoscopy today. - Increase Omeprazole to twice daily dosing. Attending Participation: I personally performed the entire procedure. Electronically signed by Catrachito Link M.D. Catrachito Link M.D. 12/19/2024 9:26:14 AM Number of Addenda: 0 Note Initiated On: 12/19/2024 8:41 AM Catrachito Link MD ENDOSCOPY PROCEDURES Final Result * US Carotids Duplex Bilateral (10/23/2024 3:28 PM [employer]) Anatomical Region Laterality Modality Vascular Bilateral Ultrasound 10/23/2024 3:05 PM [employer] Narrative 10/24/2024 1:20 PM [employer] Vascular & Vein Surgery [facility] [place] [address] [place] [address] Carotid Duplex Ultrasound Report Patient Name: BIJAL DOUGLAS L : 1965 (59y 1m) Study Date: 10/23/2024 3:05:08 PM Gender: F Rn House Supervisor: MAURICE Location: [facility] Ref Provider: GILBERT CAMPOVERDE Quality: Adequate Order Provider: GILBERT CAMPOVERDE PROCEDURES: Carotid Report: Carotid duplex examination of the extracranial arteries was performed using 2D, color and spectral Doppler. INDICATIONS: Lt sided bruit. HISTORY: Hypertension. Former smoker. COMPARISONS: No previous exams. Measurements: Right Value Left Value RT Prox CCA PSV 100 cm/sec Lt Subc PSV 142 cm/sec RT Prox CCA EDV 27 cm/sec LT Prox CCA PSV 82 cm/sec RT Distal CCA PSV 83 cm/sec LT Prox CCA EDV 26 cm/sec RT Distal CCA EDV 25 cm/sec LT Distal CCA PSV 67 cm/sec RT Prox ICA PSV 91 cm/sec LT Distal CCA EDV 25 cm/sec RT Prox ICA EDV 23 cm/sec LT Prox ICA PSV 80 cm/sec RT Mid ICA PSV 78 cm/sec LT Prox ICA EDV 27 cm/sec RT Mid ICA EDV 22 cm/sec LT Mid ICA PSV 81 cm/sec RT Distal ICA PSV 66 cm/sec LT Mid ICA EDV 34 cm/sec RT Distal ICA EDV 23 cm/sec LT Distal ICA PSV 63 cm/sec RT ECA Prx PSV 66 cm/sec LT Distal ICA EDV 33 cm/sec RT ICA/CCA 1.10 ratio LT ECA Prx PSV 61 cm/sec Rt Vert Dst PSV 50 cm/sec LT ICA/CCA 1.19 ratio Lt Vert Dst PSV 38 cm/sec - FINDINGS: Rt Common Carotid Artery: Duplex imaging of the right common carotid artery is within normal limits without evidence of atherosclerotic disease. Rt Internal Carotid Artery: The plaque in the right internal carotid artery appears to be heterogeneous and smooth. Atherosclerotic changes of the right internal carotid artery without hemodynamically significant Doppler findings. <50% stenosis. Rt External Carotid Artery: The right external carotid artery is patent without evidence of atherosclerotic plaque. Rt Vertebral Artery: The right vertebral artery is patent with antegrade flow. Lt Common Carotid Artery: Duplex imaging of the left common carotid artery is within normal limits without evidence of atherosclerotic disease. Lt Internal Carotid Artery: The plaque in the left internal carotid artery appears to be heterogeneous and smooth. Atherosclerotic changes of the left internal carotid artery without hemodynamically significant Doppler findings. <50% stenosis. Lt External Carotid Artery: The left external carotid artery is patent without evidence of atherosclerotic plaque. Lt Vertebral Artery: The left vertebral artery is patent with antegrade flow. Comments: Brachial artery systolic blood pressure is 127 on the right, 146 on the left. CONCLUSIONS: 1. No evidence of hemodynamically significant disease of the bilateral extracranial carotid system. ATTESTATION: I have reviewed and interpreted the pertinent images and measurements of this study. I attest to the conclusions in the final report that is provided above. Electronically Signed By: Agustin Blank MD [facility] 2024-10-24 13:19:18 [employer] Procedure Note Agustin Blank MD - 10/24/2024 Vascular & Vein Surgery [address] [facility] [place] [address] Carotid Duplex Ultrasound Report Patient Name: BIJAL DOUGLAS L : 1965 (59y 1m) Study Date: 10/23/2024 3:05:08 PM Gender: F Rn House Supervisor: Location: [facility] Ref Provider: GILBERT CAMPOVERDE Quality: Adequate Order Provider: GILBERT CAMPOVERDE PROCEDURES: Carotid Report: Carotid duplex examination of the extracranial arterieswas performed using 2D, color and spectral Doppler. INDICATIONS: Lt sided bruit. HISTORY: Hypertension. Former smoker. COMPARISONS: No previous exams. Measurements: Right Value Left Value RT Prox CCA PSV 100 cm/sec Lt Subc PSV 142 cm/sec RT Prox CCA EDV 27 cm/sec LT Prox CCA PSV 82 cm/sec RT Distal CCA PSV 83 cm/sec LT Prox CCA EDV 26 cm/sec RT Distal CCA EDV 25 cm/sec LT Distal CCA PSV 67 cm/sec RT Prox ICA PSV 91 cm/sec LT Distal CCA EDV 25 cm/sec RT Prox ICA EDV 23 cm/sec LT Prox ICA PSV 80 cm/sec RT Mid ICA PSV 78 cm/sec LT Prox ICA EDV 27 cm/sec RT Mid ICA EDV 22 cm/sec LT Mid ICA PSV 81 cm/sec RT Distal ICA PSV 66 cm/sec LT Mid ICA EDV 34 cm/sec RT Distal ICA EDV 23 cm/sec LT Distal ICA PSV 63 cm/sec RT ECA Prx PSV 66 cm/sec LT Distal ICA EDV 33 cm/sec RT ICA/CCA 1.10 ratio LT ECA Prx PSV 61 cm/sec Rt Vert Dst PSV 50 cm/sec LT ICA/CCA 1.19 ratio Lt Vert Dst PSV 38 cm/sec - FINDINGS: Rt Common Carotid Artery: Duplex imaging of the right common carotidartery is within normal limits without evidence of atherosclerotic disease. Rt Internal Carotid Artery: The plaque in the right internal carotidartery appears to be heterogeneous and smooth. Atherosclerotic changes of the right internalcarotid artery without hemodynamically significant Doppler findings. <50% stenosis. Rt External Carotid Artery: The right external carotid artery is patentwithout evidence of atherosclerotic plaque. Rt Vertebral Artery: The right vertebral artery is patent with antegradeflow. Lt Common Carotid Artery: Duplex imaging of the left common carotid arteryis within normal limits without evidence of atherosclerotic disease. Lt Internal Carotid Artery: The plaque in the left internal carotid arteryappears to be heterogeneous and smooth. Atherosclerotic changes of the left internalcarotid artery without hemodynamically significant Doppler findings. <50% stenosis. Lt External Carotid Artery: The left external carotid artery is patentwithout evidence of atherosclerotic plaque. Lt Vertebral Artery: The left vertebral artery is patent with antegradeflow. Comments: Brachial artery systolic blood pressure is 127 on the right, 146on the left. CONCLUSIONS: 1. No evidence of hemodynamically significant disease of the bilateralextracranial carotid system. ATTESTATION: I have reviewed and interpreted the pertinent images and measurements ofthis study. I attest to the conclusions in the final report that is provided above. Electronically Signed By: Agustin Blank MD [facility] 2024-10-24 13:19:18 [employer]UP [employer] Gilbert Campoverde MD IM US PROCEDURES Final R esult from Last 3 Months Insurance [place] [employer] [place] [employer] [place] Advance Directives For more information, please contact: [phone] * Full Code (Latest Code Status on File) Date Activated Date Inactivated Comments 12/19/2024 7:45 AM 12/19/2024 6:30 PM * Full Code Date Activated Date Inactivated Comments 11/18/2022 11:43 AM 11/18/2022 5:30 PM Care Teams Information Tech Relationship Specialty Start Date End Date Nancy Alvares NP [address] [place] [address] PCP - General Nurse Practitioner 10/08/21"
--- OUTSIDE RECORDS SUMMARY | 2025-01-17 11:01 | XMS_ITS | Encounter Summary ---
Author Organization [facility] Address [address] [place] [address] Care Team Providers Care Hypo Dipper Name Role Phone Nancy Alvares Primary Care Provider [phone] Encounter Details Date Type Department Care Team (Late st Contact Info) Description 03/16/2022 MyChart [facility] [address] [place] [address] Nancy Alvares FNP [address] [place], [place] [id number] Left knee severe pain Social History Tobacco Use Types Packs/Day Years Used Date Smoking Tobacco: Never Smokeless Tobacco: Never Alcohol Use Standard Drinks/Week Comments Not Currently 0 (1 standard drink = 0.6 oz pur e alcohol) PHQ-2 Answer Date Recorded PHQ-2 Score - If the patient scores above 3, please move on to questions 3-9 2 09/12/2021 Comments No Sex and Gender Information Value Date Recorded Sex Assigned at Not on file Legal Sex Female 8:29 AM CDT Gender Identity Female 12/23/2021 9:01 AM GRADUATE TEACHING ASSISTANT Sexual Orientation Straight 12/23/2021 9: 01 AM GRADUATE TEACHING ASSISTANT COVID-19 Exposure Response Date Recorded In the last 10 days, have yo u been in contact with someone who was confirmed or suspected to have Coronavirus/COVID-19? Unable to assess 02/20/2022 11:26 AM CDT documented as of this encounter Progress Notes * KIANNA Denis - 03/16/2022 1:38 PM CDT We can get an Xray . documented in this encounter Plan of Treatment Not on file documented as of this encounter Visit Diagnoses Not on filedocumented in this encounter Additional Health Concerns Assessment Noted Time PHQ-9 Depression Total Score: 12 021 12:38 PM CDT documented as of this encounter Care Teams Hypo Dipper Relationship Specialty Start Date End Date Nancy Alvares FNP [address] [place] [address] PCP - General Nurse Practitioner Family 09/12/21 documented as of this encounter
--- OUTSIDE RECORDS SUMMARY | 2025-01-17 11:01 | XMS_ITS | Encounter Summary ---
Author Organization [facility] Address [address] [place] [address] Care Team Providers Care Hardwood Floor Installation Helper Name Role Phone Nancy Alvares Primary Care Provider [phone] Encounter Details Date Type Department Care Team (Latest Contact Info) Description 09/22/2022 MyChart Message Enc [facility] Medical Group Family & Internal Medicine [facility] [address] [place] [address] Nancy Alvares FNP [address] [place], [place] [phone] Radio Engineering Teacher Referral Social History Tobacco Use Types Packs/Day Years [...] CDT Gender Identity Female 12/23/2021 9:01 AM CREWMAN MAIN BATTLE TANK Sexual Orientation Straight 12/23/2021 9: 01 AM CREWMAN MAIN BATTLE TANK COVID-19 Exposure Response Date Recorded In the last 10 days, have yo u been in contact with someone who was confirmed or suspected to have Coronavirus/COVID-19? No / Unsure 09/04/2022 7:51 AM CDT documented as of this encounter Progress Notes * DO Oswaldo Ba 09/22/2022 1:21 PM CDT Yes, that's fine. documented in this encounter Plan of Treatment Not on file documented as of this encounter Visit Diagnoses Not on filedocumented in this encounter Additional Health Concerns Assessment Noted Time PHQ-9 Depression Total Score: 12 021 12:38 PM CDT documented as of this encounter Care Teams Hardwood Floor Installation Helper Relationship Specialty Start Date End Date Nancy Alvares FNP [address] [place] [address] PCP - General Nurse Practitioner Family 09/12/21 documented as of this encounter
--- OUTSIDE RECORDS SUMMARY | 2025-01-17 11:01 | XMS_ITS | Encounter Summary ---
Author Organization [facility] Address [address] [place] [address] Care Team Providers Care Employment Representative Name Role Phone Nancy Alvares Primary Care Provider [phone] Encounter Details Date Type Department Care Team (Late st Contact Info) Description 12/24/2021 Observe Medical Message Enc [facility] Medical Group Family & Internal Medicine [address] [phone] [place], [facility] Provider Appointment Reschedule Social History Tobacco Use Types Packs/Day Years [...] CDT Gender Identity Female 12/23/2021 9:01 AM SCREW MACHINE OPERATOR SWISS TYPE Sexual Orientation Straight 12/23/2021 9: 01 AM SCREW MACHINE OPERATOR SWISS TYPE documented as of this encounter Plan of Treatment Not on file documented as of this encounter Visit Diagnoses Not on filedocumented in this encounter Additional Health Concerns Infection Onset Date Last Indicated Resolved Time COVID-19 Confirmed 12/12/2021 12/12/2021 12:34 AM SCREW MACHINE OPERATOR SWISS TYPE Assessment Noted Time PHQ-9 Depression Total Score: 12 021 12:38 PM CDT documented as of this encounter Care Teams Employment Representative Relationship Specialty Start Date End Date Nancy Alvares FNP [address] [place] [address] PCP - General Nurse Practitioner Family 09/12/21 documented as of this encounter
--- OUTSIDE RECORDS SUMMARY | 2025-01-17 11:01 | XMS_ITS | Encounter Summary ---
Author Organization [facility] Address [address] [place] [address] Care Team Providers Care Ingredient Scaler Name Role Phone Nancy Alvares Primary Care Provider [phone] Encounter Details Date Type Department Care Team (Late st Contact Info) Description 09/20/2024 [employer] Message Enc [facility] Medical Group Family & Internal Medicine [address] [phone] [place], [facility] Provider XR results Social History Tobacco Use Types Packs/Day Years Used Date Smoking Tobacco: Never Smokeless Tobacco: Never Alcohol Use Standard Drinks/Week Comments Not Currently 0 (1 standard drink = 0.6 oz pur e alcohol) PHQ-2 Answer Date Recorded Patient Health Questionnaire-2 Score 0 03/17/2024 Comments No Sex and Gender Information Value Date Recorded Sex Assigned at Not on file Legal Sex Female 8:29 AM CDT Gender Identity Female 12/23/2021 9:01 AM ASSOCIATE MEDICAL DIRECTOR Sexual Orientation Straight 12/23/2021 9: 01 AM ASSOCIATE MEDICAL DIRECTOR documented as of this encounter Plan of Treatment Not on file documented as of this encounter Visit Diagnoses Not on filedocumented in this encounter Additional Health Concerns Assessment Noted Time PHQ-9 Depression Total Score: 21 023 4:28 PM ASSOCIATE MEDICAL DIRECTOR documented as of this encounter Care Teams Ingredient Scaler Relationship Specialty Start Date End Date Nacny Alvares FNP [address] [place] [address] PCP - General Nurse Practitioner Family 09/12/21 documented as of this encounter
--- OUTSIDE RECORDS SUMMARY | 2025-01-17 11:01 | XMS_ITS | Encounter Summary ---
Author Organization [facility] Address [address] [place] [address] Care Team Providers Care Yarn Spooler Name Role Phone Nancy Alvares Primary Care Provider [phone] Encounter Details Date Type Department Care Team (Late st Contact Info) Description 07/08/2023 Immuneticst Message Enc [facility] Medical Group Family & Internal Medicine [facility] [address] [place] [phone] Nancy Alvares FNP [address] [place], [place] [phone] Copy of updated insurance card Social History Tobacco Use Types Packs/Day Years Used Date Smoking Tobacco: Never Smokeless Tobacco: Never Alcohol Use Standard Drinks/Week Comments Not Currently 0 (1 standard drink = 0.6 oz pur e alcohol) PHQ-2 Answer Date Recorded Patient Health Questionnaire-2 Score 0 07/01/2023 Comments No Sex and Gender Information Value Date Recorded Sex Assigned at Not on file Legal Sex Female 8:29 AM CDT Gender Identity Female 12/23/2021 9:01 AM LASTING ROOM MACHINE OPERATOR Sexual Orientation Straight 12/23/2021 9: 01 AM LASTING ROOM MACHINE OPERATOR documented as of this encounter Plan of Treatment Not on file documented as of this encounter Visit Diagnoses Not on filedocumented in this encounter Additional Health Concerns Assessment Noted Time PHQ-9 Depression Total Score: 12 021 12:38 PM CDT documented as of this encounter Care Teams Yarn Spooler Relationship Specialty Start Date End Date Nancy Alvares FNP [address] [place] [phone] PCP - General Nurse Practitioner Family 09/12/21 documented as of this encounter
--- OUTSIDE RECORDS SUMMARY | 2025-01-17 11:01 | XMS_ITS | Encounter Summary ---
Author Organization [facility] Address [address] [facility] [place] [address] Care Team Providers Care Repair Specialist Name Role Phone Unavailable Primary Care Provider Unavailabl e Encounter Details Date Type Department Care Team (Late st Contact Info) Description 10/12/2024 Lab Requisition [facility] - DermPath Lab [address] [facility], [place] [address] Bharati Jason DO [address] [facility] [address] [place] [address] Social History Tobacco Use Types Packs/Day Years Used Date Smoking Tobacco: Never Assessed Sex and Gender Information Value Date Recorded Sex Assigned at Not on file Gender Identity Not on file Sexual Orientation Not on file documented as of this encounter Plan of Treatment Not on file documented as of this encounter Procedures Procedure Name Priority Date/Time Associated Diagnosis Comments DERMATOPATHOLOGY Routine 10/12/2024 2:07 PM BOILER SHOP MECHANIC documented in this encounter Results * DERMATOPATHOLOGY (10/12/2024 2:07 PM BOILER SHOP MECHANIC) Case Report Dermatopathology Report Case: [id number] Authorizing Provider: Bharati Jason DO Collected: 10/12/2024 02:07 PM Ordering Location: [facility] - Received: 10/13/2024 11:00 AM DermPath Lab Pathologist: Kerry Garcia MD Specimen: Skin, left medial cheek 4 12:27 PM BOILER SHOP MECHANIC DERMATOPATHOLOGY LABORATORY Final Diagnosis Specimen A. SKIN, left medial cheek: ACTINIC KERATOSIS (L57.0) 4 12:27 PM BOILER SHOP MECHANIC DERMATOPATHOLOGY LABORATORY Clinical History R/O BCC 12:27 PM [facility] DERMATOPATHOLOGY LABORATORY Gross Description Specimen A: Received is one formalin filled container labeled with the patient's name and designated left medial cheek. The specimen consists of a shave biopsy measuring 4x2x1 mm. Jar 0. 12:27 PM [facility] DERMATOPATHOLOGY LABORATORY Microscopic Description Specimen A. SKIN, left medial cheek: There is focal parakeratosis. The lower half of the epidermis shows disorderly maturation of keratinocytes with nuclear pleomorphism. 12:27 PM [facility] DERMATOPATHOLOGY LABORATORY Disclaimer An external and internal positive and negative controls are appropriate for the histochemical, immunohistochemical and immunofluorescence stain(s) in this case (if any), except where stated explicitly. The performance characteristics of the stain(s) cited in this report were developed and its performance characteristic determined by the Dermatopathology Laboratory at [facility], directed by Dr. Pebbles Leavitt. These tests need not be, and therefore are not, approved by the [place] Food and Drug Administration. The tests are used for clinical purposes. Billing Codes Specimen Charges Stain Charges 89098 1 12:27 PM [facility] DERMATOPATHOLOGY LABORATORY Embedded Images 12:27 PM [facility] DERMATOPATHOLOGY LABORATORY Pathology/Cytolo gy TISSUE SPECIMEN FROM SKIN / Unknown 10/12/2024 2:07 PM BOILER SHOP MECHANIC 10/13/2024 11:00 AM BOILER SHOP MECHANIC Bharati Jason DO LAB - PATHOLOGY/C YTOLOGY ORDERABLES DERMATOPATHOLOGY LABORATORY [facility] - Department of Dermatology [address], [address] [phone] documented in this encounter Visit Diagnoses Not on filedocumented in this encounter
--- OUTSIDE RECORDS SUMMARY | 2025-01-17 11:01 | XMS_ITS | Encounter Summary ---
Author Organization [facility] Address [address] [place] [address] Phone Care Team Providers Care Centrifugal Extractor Operator Name Role Phone Kiran Garvey MD Primary Care Provider + [phone] Kiran Garvey MD Primary Care Provider + [phone] Lorena Taylor MD Primary Care Provider + [phone] Dante Olivarez Primary Care Provider [phone] Morro Doyle MD Primary Care Provider [phone] Nancy Alvares NP Primary Care Provider + [phone] Encounter Details Date Type Department Care Team (Latest Contact Info) Description 02/27/2015 Orders Only [facility] Scanning, Provider Social History Tobacco Use Types Packs/Day Years Used Date Smoking Tobacco: Never Assessed Comments Unknown Sex and Gender Information Value Date Recorded Sex Assigned at Not on file Legal Sex Female 9:09 PM CD REACTOR OPERATOR Gender Identity Not on file Sexual Orientation Not on file documented as of this encounter Plan of Treatment Scheduled Procedures Name Priority Associated Diagnoses Date/Ti me COLONOSCOPY Colon cancer screening documented as of this encounter Procedures Procedure Name Priority Date/Time Associated Diagnosis Comments SCAN - RADIOLOGY/IMAGING 02/27/2015 documented in this encounter Results * SCAN - RADIOLOGY/IMAGING (02/27/2015) Anatomical Region Laterality Modality Other us Provider Scanning Final Result documented in this encounter Visit Diagnoses Not on filedocumented in this encounter Care Teams Centrifugal Extractor Operator Relationship Specialty Start Date End Date Malench, Kiran E., MD [address] [place] [address] PCP - General 02/26/17 01/25/19 Kiran Garvey MD [address] [place] [address] PCP - General 03/21/15 02/25/17 Lorena Taylor MD [address] [place] [address] PCP - General Family Practice 01/26/19 03/31/21 Dante Olivarez PA [address] [facility] [address] [place] [address] PCP - General Physician Autism Specialist 04/01/21 06/09/21 Morro Doyle MD [address] [facility] 1 [place] [address] PCP - General Internal Medicine 06/10/21 10/07/21 Nancy Alvares WATER TAXI BOAT MATE [address] [place] [address] PCP - General Nurse Practitioner 10/08/21 documented as of this encounter
--- OUTSIDE RECORDS SUMMARY | 2025-01-17 11:01 | XMS_ITS | Encounter Summary ---
Author Organization [facility] Address [address] [place] [address] Phone Care Team Providers Care Settlement Clerk Name Role Phone Kiran Garvey MD Primary Care Provider + [phone] Kiran Garvey MD Primary Care Provider + [phone] Lorena Taylor MD Primary Care Provider + [phone] Dante Olivarez Primary Care Provider [phone] Morro Doyle MD Primary Care Provider [phone] Nancy Alvares NP Primary Care Provider + [phone] Encounter Details Date Type Department Care Team (Latest Contact Info) Description 04/16/2006 Orders Only [facility] Scanning, Provider Social History Tobacco Use Types Packs/Day Years Used Date Smoking Tobacco: Never Assessed Comments Unknown Sex and Gender Information Value Date Recorded Sex Assigned at Not on file Legal Sex Female 9:09 PM MAJOR SALES ASSOCIATE Gender Identity Not on file Sexual Orientation Not on file documented as of this encounter Plan of Treatment Scheduled Procedures Name Priority Associated Diagnoses Date/Ti me COLONOSCOPY Colon cancer screening documented as of this encounter Procedures Procedure Name Priority Date/Time Associated Diagnosis Comments SCAN - RADIOLOGY/IMAGING 04/16/2006 documented in this encounter Results * SCAN - RADIOLOGY/IMAGING (04/16/2006) Anatomical Region Laterality Modality Other us Provider Scanning Final Result documented in this encounter Visit Diagnoses Not on filedocumented in this encounter Care Teams Settlement Clerk Relationship Specialty Start Date End Date Malench, Kiran E., MD [address] [place] [address] PCP - General 02/26/17 01/25/19 Kiran Garvey MD [address] [place] [address] PCP - General 03/21/15 02/25/17 Lorena Taylor MD [address] [place] [address] PCP - General Family Practice 01/26/19 03/31/21 Dante Olivarez PA [address] [facility] [address] [place] [address] PCP - General Physician Door Person 04/01/21 06/09/21 Morro Doyle MD [address] [facility] 1 [place] [address] PCP - General Internal Medicine 06/10/21 10/07/21 Nancy Alvares FRONT FACER [address] [place] [address] PCP - General Nurse Practitioner 10/08/21 documented as of this encounter
--- OUTSIDE RECORDS SUMMARY | 2025-01-17 11:01 | XMS_ITS | Encounter Summary ---
Author Organization [facility] Address [address] [place] [address] Phone Care Team Providers Care Flexographic Printing Machinist Name Role Phone Lorena Taylor MD Primary Care Provider + [phone] Dante Olivarez Primary Care Provider [phone] Morro Doyle MD Primary Care Provider [phone] Nancy Alvares NP Primary Care Provider + [phone] Encounter Details Date Type Department Care Team (Latest Contact Info) Description 04/18/2019 Orders Only [facility] Scanning, Provider Social History Tobacco Use Types Packs/Day Years Used Date Smoking Tobacco: Former Cigarettes 0 08/19/1987 - 08/19/1991 Smokeless Tobacco: Never Alcohol Use Standard Drinks/Week Comments No 0 (1 standard drink = 0.6 oz pur e alcohol) Comments Unknown Sex and Gender Information Value Date Recorded Sex Assigned at Not on file Legal Sex Female 9:09 PM BARROW WORKER Gender Identity Not on file Sexual Orientation Not on file documented as of this encounter Plan of Treatment Scheduled Procedures Name Priority Associated Diagnoses Date/Ti me COLONOSCOPY Colon cancer screening documented as of this encounter Procedures Procedure Name Priority Date/Time Associated Diagnosis Comments SCAN - RADIOLOGY/IMAGING 04/18/2019 documented in this encounter Results * SCAN - RADIOLOGY/IMAGING (04/18/2019) Anatomical Region Laterality Modality Other us Provider Scanning Final Result documented in this encounter Visit Diagnoses Not on filedocumented in this encounter Care Teams Flexographic Printing Machinist Relationship Specialty Start Date End Date Lorena Taylor MD PCP - General Family Practice 01/26/19 03/31/21 Dante Olivarez, PA [address] [facility] [address] [place] [address] PCP - General Physician Rn Clinician 04/01/21 06/09/21 Morro Doyle MD [address] [facility] 1 [place] [address] PCP - General Internal Medicine 06/10/21 10/07/21 Nancy Alvares NP [facility] [place] [address] PCP - General Nurse Practitioner 10/08/21 documented as of this encounter
--- OUTSIDE RECORDS SUMMARY | 2025-01-17 11:01 | XMS_ITS | Encounter Summary ---
Author Organization [facility] Address [address] [place] [address] Phone Care Team Providers Care Communications Engineer Name Role Phone Nancy Alvares NP Primary Care Provider Encounter Details Date Type Department Care Team (Latest Contact Info) Description 10/08/2021 Orders Only [facility] Scanning, Provider Social History Tobacco Use Types Packs/Day Years Used Date Smoking Tobacco: Former Cigarettes 0 08/19/1987 - 08/19/1991 Smokeless Tobacco: Never Alcohol Use Standard Drinks/Week Comments No 0 (1 standard drink = 0.6 oz pur e alcohol) Comments Unknown Sex and Gender Information Value Date Recorded Sex Assigned at Not on file Legal Sex Female 9:09 PM BUS INSPECTOR Gender Identity Not on file Sexual Orientation Not on file documented as of this encounter Plan of Treatment Scheduled Procedures Name Priority Associated Diagnoses Date/Ti me COLONOSCOPY Colon cancer screening documented as of this encounter Procedures Procedure Name Priority Date/Time Associated Diagnosis Comments SCAN - RADIOLOGY/IMAGING 10/08/2021 documented in this encounter Results * SCAN - RADIOLOGY/IMAGING (10/08/2021) Anatomical Region Laterality Modality Other us Provider Scanning Final Result documented in this encounter Visit Diagnoses Not on filedocumented in this encounter Care Teams Communications Engineer Relationship Specialty Start Date End Date Nancy Alvares NP [address] [place] [address] PCP - General Nurse Practitioner 10/08/21 documented as of this encounter
--- OUTSIDE RECORDS SUMMARY | 2025-01-17 11:01 | XMS_ITS | Encounter Summary ---
Author Organization [facility] Address [address] [place] [address] Care Team Providers Care Physician Specialist Name Role Phone Nancy Alvares Primary Care Provider [phone] Encounter Details Date Type Department Care Team (Late st Contact Info) Description 03/16/2024 MyChart Message Enc [facility] Family & Internal Medicine [facility] [address] [place] [id number] Nancy Alvares FNP [address] [place], [place] [id number] Rolled Ankle Social History Tobacco Use Types Packs/Day Years [...] CDT Gender Identity Female 12/23/2021 9:01 AM HAND II THERMAL CUTTER Sexual Orientation Straight 12/23/2021 9: 01 AM HAND II THERMAL CUTTER documented as of this encounter Progress Notes * Sammie Ricks RN - 03/17/2024 1:58 PM CDT Patient I going to go to walk in clinic in [place]. Opportunity given for all questions to be answered, no further needs voiced at this time. -03/17/24 * KIANNA Denis - 03/17/2024 1:40 PM CDT We can do an x ray but she probably needs to go somewhere that can splint her if she has a fracture. Otherwise, we can do the imaging but will have to find a place to see her to splint if needed. documented in this encounter Plan of Treatment Not on file documented as of this encounter Visit Diagnoses Not on filedocumented in this encounter Additional Health Concerns Assessment Noted Time PHQ-9 Depression Total Score: 21 023 4:28 PM HAND II THERMAL CUTTER documented as of this encounter Care Teams Physician Specialist Relationship Specialty Start Date End Date Nancy Alvares FNP [address] [place] [address] PCP - General Nurse Practitioner Family 09/12/21 documented as of this encounter
--- OUTSIDE RECORDS SUMMARY | 2025-01-17 11:01 | XMS_ITS | Encounter Summary ---
Author Organization [facility] Address [address] [place] [address] Phone Care Team Providers Care Client Delivery Specialist Name Role Phone Morro Doyle MD Primary Care Provider [phone] Nancy Alvares NP Primary Care Provider + [phone] Encounter Details Date Type Department Care Team (Latest Contact Info) Description 09/25/2021 Orders Only [facility] Scanning, Provider Social History Tobacco Use Types Packs/Day Years Used Date Smoking Tobacco: Former Cigarettes 0 08/19/1987 - 08/19/1991 Smokeless Tobacco: Never Alcohol Use Standard Drinks/Week Comments No 0 (1 standard drink = 0.6 oz pur e alcohol) Comments Unknown Sex and Gender Information Value Date Recorded Sex Assigned at Not on file Legal Sex Female 9:09 PM AIR INTELLIGENCE OFFICER Gender Identity Not on file Sexual Orientation Not on file documented as of this encounter Plan of Treatment Scheduled Procedures Name Priority Associated Diagnoses Date/Ti me COLONOSCOPY Colon cancer screening documented as of this encounter Procedures Procedure Name Priority Date/Time Associated Diagnosis Comments SCAN - RADIOLOGY/IMAGING 09/25/2021 documented in this encounter Results * SCAN - RADIOLOGY/IMAGING (09/25/2021) Anatomical Region Laterality Modality Other us Provider Scanning Final Result documented in this encounter Visit Diagnoses Not on filedocumented in this encounter Care Teams Client Delivery Specialist Relationship Specialty Start Date End Date Morro Doyle MD [address] [place], [place] [id number] PCP - General Internal Medicine 06/10/21 10/07/21 Nancy Alvares NP [address] [place] [address] PCP - General Nurse Practitioner 10/08/21 documented as of this encounter
--- OUTSIDE RECORDS SUMMARY | 2025-01-17 11:01 | XMS_ITS | Encounter Summary ---
Author Organization [facility] Address [address] [place] [address] Phone Care Team Providers Care Spindle Carver Name Role Phone Kiran Garvey MD Primary Care Provider + [phone] Kiran Garvey MD Primary Care Provider + [phone] Lorena Taylor MD Primary Care Provider + [phone] Dante Olivarez Primary Care Provider [phone] Morro Doyle MD Primary Care Provider [phone] Nancy Alvares NP Primary Care Provider + [phone] Encounter Details Date Type Department Care Team (Latest Contact Info) Description 04/13/2005 Orders Only [facility] Scanning, Provider Social History Tobacco Use Types Packs/Day Years Used Date Smoking Tobacco: Never Assessed Comments Unknown Sex and Gender Information Value Date Recorded Sex Assigned at Not on file Legal Sex Female 9:09 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 Gender Identity Not on file Sexual Orientation Not on file documented as of this encounter Plan of Treatment Scheduled Procedures Name Priority Associated Diagnoses Date/Ti me COLONOSCOPY Colon cancer screening documented as of this encounter Procedures Procedure Name Priority Date/Time Associated Diagnosis Comments SCAN - RADIOLOGY/IMAGING 04/13/2005 documented in this encounter Results * SCAN - RADIOLOGY/IMAGING (04/13/2005) Anatomical Region Laterality Modality Other us Provider Scanning Final Result documented in this encounter Visit Diagnoses Not on filedocumented in this encounter Care Teams Spindle Carver Relationship Specialty Start Date End Date Malench, Kiran E., MD [address] [place] [address] PCP - General 02/26/17 01/25/19 Kiran Garvey MD [address] [place] [address] PCP - General 03/21/15 02/25/17 Lorena Taylor MD [address] [place] [address] PCP - General Family Practice 01/26/19 03/31/21 Dante Olivarez PA [address] [facility] [address] [place] [address] PCP - General Physician Rivet Maker 04/01/21 06/09/21 Morro Doyle MD [address] [facility] 1 [place] [address] PCP - General Internal Medicine 06/10/21 10/07/21 Nancy Alvares CUSTOM STOCK MAKER [address] [place] [address] PCP - General Nurse Practitioner 10/08/21 documented as of this encounter
--- OUTSIDE RECORDS SUMMARY | 2025-01-17 11:01 | XMS_ITS | Encounter Summary ---
Author Organization [facility] Address [address] [place] [address] Phone Care Team Providers Care Police Inspector Name Role Phone Kiran Garvey MD Primary Care Provider + [phone] Kiran Garvey MD Primary Care Provider + [phone] Lorena Taylor MD Primary Care Provider + [phone] Dante Olivarez Primary Care Provider [phone] Morro Dolye MD Primary Care Provider [phone] Nancy Alvares NP Primary Care Provider + [phone] Encounter Details Date Type Department Care Team (Latest Contact Info) Description 09/27/2009 Orders Only [facility] Scanning, Provider Social History Tobacco Use Types Packs/Day Years Used Date Smoking Tobacco: Never Assessed Comments Unknown Sex and Gender Information Value Date Recorded Sex Assigned at Not on file Legal Sex Female 9:09 PM JAVA ANALYST Gender Identity Not on file Sexual Orientation Not on file documented as of this encounter Plan of Treatment Scheduled Procedures Name Priority Associated Diagnoses Date/Ti me COLONOSCOPY Colon cancer screening documented as of this encounter Procedures Procedure Name Priority Date/Time Associated Diagnosis Comments SCAN - RADIOLOGY/IMAGING 09/27/2009 documented in this encounter Results * SCAN - RADIOLOGY/IMAGING (09/27/2009) Anatomical Region Laterality Modality Other us Provider Scanning Final Result documented in this encounter Visit Diagnoses Not on filedocumented in this encounter Care Teams Police Inspector Relationship Specialty Start Date End Date Malench, Kiran E., MD [address] [place] [address] PCP - General 02/26/17 01/25/19 Kiran Garvey MD [address] [place] [address] PCP - General 03/21/15 02/25/17 Lorena Taylor MD [address] [place] [address] PCP - General Family Practice 01/26/19 03/31/21 Dante Olivarez PA [address] [facility] [address] [place] [address] PCP - General Physician Pouring Crane Operator 04/01/21 06/09/21 Morro Doyle MD [address] [facility] 1 [place] [address] PCP - General Internal Medicine 06/10/21 10/07/21 Nancy Alvares RETAIL RECEIVING CLERK [address] [place] [address] PCP - General Nurse Practitioner 10/08/21 documented as of this encounter
--- OUTSIDE RECORDS SUMMARY | 2025-01-17 11:01 | XMS_ITS | Encounter Summary ---
Author Organization [facility] Address [address] [place] [address] Care Team Providers Care Reserves Clerk Name Role Phone Nancy Alvares Primary Care Provider [phone] Encounter Details Date Type Department Care Team (Late st Contact Info) Description 10/12/2024 MyChart Message Enc [facility] Family & Internal Medicine [facility] [address] [place] [address] Nancy Alvares FNP [facility] [place], [place] [id number] EDG & Colonoscopy Referral Social History Tobacco Use Types Packs/Day [...] CDT Gender Identity Female 12/23/2021 9:01 AM SUPERVISOR CIGARETTE MAKING DEPARTMENT Sexual Orientation Straight 12/23/2021 9: 01 AM SUPERVISOR CIGARETTE MAKING DEPARTMENT documented as of this encounter Progress Notes * KIANNA Denis - 10/17/2024 3:33 PM CST Oh I thought she wanted a GI referral? RVISOR CIGARETTE MAKING DEPARTMENT * Lian Marrufo - 10/12/2024 12:41 PM CST Patient called back and wanted to speak to Nancy about this referral. Everyone is a lunch so I told her that someone will give her a call once the message has been read. [employer] CIGARET[employer] MAKING DEPARTMENT documented in this encounter Plan of Treatment Not on file documented as of this encounter Visit Diagnoses Not on filedocumented in this encounter Additional Health Concerns Assessment Noted Time PHQ-9 Depression Total Score: 023 4:28 PM SUPERVISOR CIGARETTE MAKING DEPARTMENT documented as of this encounter Care Teams Reserves Clerk Relationship Specialty Start Date End Date Nancy Alvares FNP [address] [place] [address] PCP - General Nurse Practitioner Family 09/12/21 documented as of this encounter
--- OUTSIDE RECORDS SUMMARY | 2025-01-17 11:01 | XMS_ITS | Encounter Summary ---
Author Organization [facility] Address [address] [place] [address] Phone Care Team Providers Care Rn Testing Name Role Phone Kiran Garvey MD Primary Care Provider + [phone] Kiran Garvey MD Primary Care Provider + [phone] Lorena Taylor MD Primary Care Provider + [phone] Dante Olivarez Primary Care Provider [phone] Morro Doyle MD Primary Care Provider [phone] Nancy Alvares NP Primary Care Provider + [phone] Encounter Details Date Type Department Care Team (Latest Contact Info) Description 11/10/2006 Orders Only [facility] Scanning, Provider Social History Tobacco Use Types Packs/Day Years Used Date Smoking Tobacco: Never Assessed Comments Unknown Sex and Gender Information Value Date Recorded Sex Assigned at Not on file Legal Sex Female 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 Gender Identity Not on file Sexual Orientation Not on file documented as of this encounter Plan of Treatment Scheduled Procedures Name Priority Associated Diagnoses Date/Ti me COLONOSCOPY Colon cancer screening documented as of this encounter Procedures Procedure Name Priority Date/Time Associated Diagnosis Comments SCAN - RADIOLOGY/IMAGING 11/10/2006 documented in this encounter Results * SCAN - RADIOLOGY/IMAGING (11/10/2006) Anatomical Region Laterality Modality Other us Provider Scanning Final Result documented in this encounter Visit Diagnoses Not on filedocumented in this encounter Care Teams Rn Testing Relationship Specialty Start Date End Date Malench, Kiran E., MD [address] [place] [address] PCP - General 02/26/17 01/25/19 Kiran Garvey MD [address] [place] [address] PCP - General 03/21/15 02/25/17 Loerna Taylor MD [address] [place] [address] PCP - General Family Practice 01/26/19 03/31/21 Dante Olivarez PA [address] [facility] [address] [place] [address] PCP - General Physician Gamer 04/01/21 06/09/21 Morro Doyle MD [address] [facility] 1 [place] [address] PCP - General Internal Medicine 06/10/21 10/07/21 Nancy Alvares CARTON MACHINE OPERATOR [address] [place] [address] PCP - General Nurse Practitioner 10/08/21 documented as of this encounter
--- OUTSIDE RECORDS SUMMARY | 2025-01-17 11:01 | XMS_ITS | Clinical Summary ---
Author Organization [facility] Address [facility] [place] [address] Care Team Providers Care Christmas Tree Grader Name Role Phone Nicole Holt KIANNA Primary Care Provider [phone] Allergies No known active allergies Medications Aspirin-Acetamino phen-Caffeine (EXCEDRIN EXTRA STRENGTH OR) Take 1 tablet by mouth every morning. Active fluticasone propionate (FLONASE) 50 MCG/ACT nasal sprayIndications: Dysfunction of right eustachian tube shake liquid and use 2 sprays in each nostril daily 48 g 11/24/20 23 Active folic acid (FOLVITE) 1 MG tabletIndications :Folic acid deficiency TAKE 1 TABLET(1 MG) BY MOUTH DAILY 90 tablet 3 09/20/20 24 Active eletriptan (RELPAX) 40 MG tabletIndications :Chronic migraine without aura without status migrainosus, not intractable Take 1 tablet (40 mg total) by mouth daily as needed. may repeat in 2 hours if necessary 12 tablet 3 09/19/20 24 Active ondansetron (ZOFRAN-ODT) 4 MG disintegrating tabletIndications :Nausea Take 1 tablet (4 mg total) by mouth every 8 (eight) hours as needed for Nausea. 20 tablet 3 09/19/20 24 Active vitamin D3 (CHOLECALCIFEROL) 1.25 mg capsuleIndication s:Vitamin D deficiency Take 1 capsule (50,000 Units total) by mouth once a week. 12 capsule 3 10/12/20 24 Active losartan (COZAAR) 50 MG tabletIndications :Essential hypertension TAKE 1 TABLET(50 MG) BY MOUTH DAILY 90 tablet 11/03/20 24 Active LORazepam (ATIVAN) 0.5 MG tabletIndications :Anxiety TAKE 1 TABLET BY MOUTH EVERY 8 HOURS NEEDED FOR ANXIETY 90 tablet 1 11/23/20 24 Active HYDROcodone-chlor pheniramine ER (TUSSIONEX) 10-8 MG/5ML suspensionIndicat ions:Cough Take 2.5-5 mLs by mouth every 12 (twelve) hours as needed. Indications: Cough 115 mL 12/05/19 25 Active valACYclovir (VALTREX) 1 g tabletIndications :Cold sore TAKE 1 TABLET(1000 MG) BY MOUTH TWICE DAILY 8 tablet 1 12/08/19 25 Active vitamin D2, ergocalciferol, (DRISDOL) 1.25 mg capsuleIndication s:Vitamin D deficiency TAKE 1 CAPSULE BY MOUTH EVERY 7 DAYS 12 capsule 12/15/19 25 Active indapamide (LOZOL) 2.5 MG tabletIndications :Essential hypertension TAKE 1 TABLET(2.5 MG) BY MOUTH TWICE DAILY 60 tablet 3 01/03/20 25 Active indapamide (LOZOL) 2.5 MG tabletIndications :Essential hypertension Take 1 tablet (2.5 mg total) by mouth 2 (two) times a day. 60 tablet 3 09/19/20 24 025 Discontinued oseltamivir (TAMIFLU) 75 MG capsuleIndication s:Influenza A Take 1 capsule (75 mg total) by mouth 2 (two) times daily for 5 days. 10 capsule 12/22/19 25 025 Active Problems Problem Noted Date Diagnosed Date Flank pain 11/20/2022 Left upper quadrant abdominal pain 11/20/2022 Nausea 11/20/2022 Personal history of colonic polyps 11/16/2022 Overview (11/19/2022): Added automatically from request for surgery [id number] Family history of malignant neoplasm of gastrointestinal tract 11/16/2022 Overview (11/19/2022): Added automatically from request for surgery [id number] Folic acid deficiency 09/14/2022 History of Graves' disease 09/04/2022 Goiter 09/04/2022 Vitamin D deficiency 01/02/2022 Hx of multiple pulmonary nodules 01/02/2022 Anxiety 09/18/2021 Chronic foot pain, left 09/18/2021 Chronic migraine without aur a without status migrainosus, not intractable 09/18/2021 Class 1 obesity due to exces s calories with serious comorbidity and body mass index (BMI) of 34.0 to 34.9 in adult 09/18/2021 Fibromyalgia 09/12/2021 Parkinson disease ([facility]) 06/10/2021 Overview (09/12/2021): Last Assessment & Plan: Patient has a 9 month history of [...] time for reassessment on treatment. Hypersomnolence 01/26/2019 [place]AV[place] (obstructive sleep apnea) 01/21/2017 Overview (09/12/2021): Obstructive sleep apnea Essential hypertension 04/01/2016 Overview (09/12/2021): Essential hypertension with goal blood pressure less than 130/80 Fen-phen exposure 05/01/2015 Overview (09/12/2021): Fen-phen exposure Mitral valve insufficiency 05/01/2015 Overview (09/12/2021): Mitral regurgitation Pulmonary hypertension ([facility]) 015 Overview (09/12/2021): Pulmonary hypertension Snoring 05/01/2015 Overview (09/12/2021): Snoring Anemia 02/16/2013 Resolved Problems Problem Noted Date Diagnosed Date Resolved Date Finger mass, left 09/04/2022 07/01/2023 Finger injury, right, sequela 09/18/2021 07/01/2023 Swelling of finger joint of right hand 09/18/2021 07/01/2023 SOB (shortness of breath) 04/08/2018 Encounters Date Type Department Care Team Description 12/29/2024 Telephone [facility] Family Internal [address] [address] Nicole Holt, KIANNA Radiology Results 12/29/2024 Travel 12/26/2024 MyChart Message Enc [facility] [address] [address] Nicole Holt FNP Still sick 12/21/2024 MyChart Message Enc [facility] [address] [address] Nicole Holt FNP Sick 12/19/2024 Scan [facility] Scanned, [facility] Endoscopy (SCAN); Colonoscopy Report (SCAN); Pathology (SCAN) 12/05/2024 Orders Only [facility] & Internal [address] [address] Nicole Holt FNP 12/04/2024 MyChart Message Enc [facility] [address] [address] Nicole Holt FNP Sick 11/24/2024 Scan [facility] Scanned, [facility] 11/23/2024 Telephone [facility] [address] [address] Nicole Holt FNP Orders 10/20/2024 Scan [facility] INFO [facility] Scanned, [facility] Mammogram (SCAN) 10/17/2024 [employer] Message Enc [facility] Family & Internal Medicine [address] [address] Nicole Holt, PRESETTER OPERATOR Abdominal pain from Last 3 Months Immunizations Name Administration Dates Next Due Influenza (Generic) 09/11/2024,09/29/2019 Influenza Adult (Generic) 10/01/2023,,07/28/2021,2019,09/14/2018,09/09/2018 PFIZER COVID-19 (ORIGINAL FORMULATION, PURPLE CAP) mRNA, LNP-S, PF, 30 MCG/0.3 ML DOSE 09/19/2021 Pneumococcal (Prevnar 20) 09/04/2022 Td 11/14/2020 Tdap (Generic) 04/28/2008 Family History Medical History Relation Comments Depression Daughter Heart Disease Father Cancer Maternal Grandmother Breast Liver cancer Maternal Grandmother Thyroid Maternal Grandmother Depression Mother Hypertension Mother Heart Disease Paternal Grandfather Cancer Paternal Grandmother colon cance r Lung Cancer Sister Asthma Son schwachman-gela syndrome Son Relation Status Comments Daughter Alive Father Alive Maternal Grandmother Alive Mother Alive Paternal Grandfather Paternal Grandmother Sister Son Alive Social History Tobacco Use Types Packs/Day Years Used Date Smoking Tobacco: Never Smokeless Tobacco: Never Tobacco Cessation:Counseling Given: No Alcohol Use Standard Drinks/Week Comments Not Currently 0 (1 standard drink = 0.6 oz pur e alcohol) PHQ-2 Answer Date Recorded Patient Health Questionnaire-2 Score 0 03/17/2024 Comments No Sex and Gender Information Value Date Recorded Sex Assigned at Not on file Legal Sex Female 8:29 AM CDT Gender Identity Female 12/23/2021 9:01 AM MUSSEL FARMER Sexual Orientation Straight 12/23/2021 9: 01 AM MUSSEL FARMER Last Filed Vital Signs Vital Sign Reading Time Taken Comments Blood Pressure 136/78 09/19/2024 3:28 PM CDT Pulse 64 09/19/2024 3:28 PM CDT Temperature 36.6 C (97.9 F) 09/19/2024 3:28 PM CDT Respiratory Rate 16 09/19/2024 3:28 PM CDT Oxygen Saturation 96% 09/19/2024 3:28 PM CDT Inhaled Oxygen Concentration - - Weight 91 kg (200 lb 11.2 oz) 09/19/2024 3:28 PM CDT Height 165.1 cm (5' 5 ) 09/19/2024 3:28 PM CDT Body Mass Index 33.4 09/19/2024 3:28 PM CDT Plan of Treatment Health Maintenance Due Date Last Done Comments Annual Physical 1968 Zoster Vaccines (1 of 2) 2014 RSV Immunization or 60+ Years (1 - Risk 60-74 years 1-dose series) 2024 PHQ-2 (Physician [place]) 11/29/2024 03/17/2024 COVID-19 Vaccine ( season) 2025 05/04/2022, 09/19/2021, 01/10/2021, Additional history exists Postponed from 07/30/2024 (Patient Refused) Mammogram Screening 10/20/2026 10/20/2024, 11/26/2023, 09/26/2022, Additional history exists DTaP, Tdap and Td Vaccines (3 - Td or Tdap) 11/14/2030 11/14/2020, 04/28/2008 Colorectal Cancer Screening Colonoscopy (10 Years) 12/19/2034 12/19/2024, 12/19/2024, 11/18/2022 Hepatitis C Completed 09/04/2022 Pneumococcal Vaccine: Pediatrics (0 to 5 Years) and At-Risk Patients (6 to 64 Years) Completed 09/04/2022 Influenza Adult Completed 09/11/2024, 01/2023, 08/21/2022, Additional history exists Meningococcal B Vaccine Aged Out No l onger eligible based on patient's age to complete this topic Meningococcal Vaccine Aged Out No maciel celeste eligible based on patient's age to complete this topic RSV Immunizations Under 20 Months Aged Out No longer eligible based on patient's age to complete this topic Procedures Procedure Name Priority Date/Time Associated Diagnosis Comments XR CHEST PA+LAT Routine 12/29/2024 11:09 AM MUSSEL FARMER Chest tightness PATHOLOGY GENERIC (SCAN ORDER) 12/19/2024 PATHOLOGY GENERIC (SCAN ORDER) 12/19/2024 COLONOSCOPY GENERIC (SCAN ORDER) 12/19/2024 ENDOSCOPY (SCAN ORDER) 12/19/2024 COLONOSCOPY GENERIC (SCAN ORDER) 12/19/2024 ENDOSCOPY (SCAN ORDER) 12/19/2024 MAMMOGRAM GENERIC (SCAN ORDER) 10/20/2024 HEPATITIS C ANTIBODY Routine 09/04/2022 9:42 AM CDT Encounter for hepatitis C screening test for low risk patient from Last 3 Months or Most Recently Relevant to Health Maintenance Results * XR CHEST PA+LAT (12/29/2024 11:09 AM MUSSEL FARMER) Anatomical Region Laterality Modality Chest Radiographic Phuong ging 12/29/2024 11:2 5 AM MUSSEL FARMER Impressions 12/29/2024 11:26 AM MUSSEL FARMER IMPRESSION: No radiographic evidence of active chest disease. Ordered By: NICOLE HOLT Interpreted By: Thaddeus Palma MD, 12/29/2024 11:25 AM Narrative 12/29/2024 11:26 AM MUSSEL FARMER [facility] [place] [address] Examination: XR CHEST PA+LAT Exam time: 12/29/2024 11:05 AM Clinical history: Cough. Congestion. Comparison: No prior exam Technique: Upright PA and lateral views Findings: Excellent and pulmonary vasculature are within normal limits. Lungs appear clear. No evidence of pleural effusion. No evidence of bronchial wall thickening or abnormal pulmonary interstitium. Procedure Note Thaddeus Palma MD - 12/29/2024 [facility] Internal [facility] [place] [address] Examination: XR CHEST PA+LAT Exam time: 12/29/2024 11:05 AM Clinical history: Cough. Congestion. Comparison: No prior exam Technique: Upright PA and lateral views Findings: Excellent and pulmonary vasculature are within normal limits.Lungs appear clear. No evidence of pleural effusion. No evidence ofbronchial wall thickening or abnormal pulmonary interstitium. IMPRESSION: No radiographic evidence of active chest disease. Ordered By: NICOLE HOLT Interpreted By: Thaddeus Palma MD, 12/29/2024 11:25 AM Result [facility] Nicole Holt PRESETTER OPERATOR GENERAL IMAGING Final Result * PATHOLOGY GENERIC (SCAN ORDER) (12/19/2024) Only the most recent of2 resultswithin the time period is included. 12/19/2024 [facility] Scanned SCANNING Final Resu lt * ENDOSCOPY (SCAN ORDER) (12/19/2024) 12/19/2024 [facility] Scanned SCANNING Final Resu lt * ENDOSCOPY (SCAN ORDER) (12/19/2024) 12/19/2024 [facility] Scanned SCANNING Final Resu lt * COLONOSCOPY GENERIC (SCAN ORDER) (12/19/2024) 12/19/2024 [facility] Scanned SCANNING Final Resu lt * COLONOSCOPY GENERIC (SCAN ORDER) (12/19/2024) 12/19/2024 [facility] Scanned SCANNING Final Resu lt * MAMMOGRAM GENERIC (SCAN ORDER) (10/20/2024) Anatomical Region Laterality Modality Other 10/20/2024 [facility] Scanned SCANNING Final Resu lt * HEPATITIS C AB ([facility] ONLY) (09/04/2022 9:42 AM CDT) HEPATITIS C AB NON-REACTI VE NON-REACT VALENTIN 09/04/2022 6:29 PM CDT [facility] Comment: ANTIBODIES TO HCV NOT DETECTED. DOES NOT EXCLUDE THE POSSIBILITY OF EXPOSURE TO HCV. 09/04/2022 9:42 AM CDT Nicole [facility] Final Result [facility] [address] [place] [address], [place] [phone] [id number] from Last 3 Months or Most Recently Relevant to Health Maintenance Insurance Care Teams Christmas Tree Grader Relationship Specialty Start Date End Date Nicole Holt FNP [address] [place] [id number] PCP - General Nurse Practitioner Family 09/12/21
--- OUTSIDE RECORDS SUMMARY | 2025-01-17 11:01 | XMS_ITS | Encounter Summary ---
Author Organization [facility] Address [address] [place] [id number] Care Team Providers Care Physician Obstetrician Name Role Phone Nancy Alvares Primary Care Provider [phone] Encounter Details Date Type Department Care Team (Late st Contact Info) Description 11/09/2022 MyChart Message Enc [facility] Family & Internal Medicine [facility] [address] [place] [address] Nancy Alvares FNP [address] [place], [place] [id number] Bladder infection Social History Tobacco Use Types Packs/Day Years [...] CDT Gender Identity Female 12/23/2021 9:01 AM MAPPING TECHNICIAN Sexual Orientation Straight 12/23/2021 9: 01 AM MAPPING TECHNICIAN documented as of this encounter Plan of Treatment Not on file documented as of this encounter Visit Diagnoses Not on filedocumented in this encounter Additional Health Concerns Assessment Noted Time PHQ-9 Depression Total Score: 12 021 12:38 PM CDT documented as of this encounter Care Teams Physician Obstetrician Relationship Specialty Start Date End Date Nancy Alvares FNP [address] [place] [id number] PCP - General Nurse Practitioner Family 09/12/21 documented as of this encounter
--- OUTSIDE RECORDS SUMMARY | 2025-01-17 11:01 | XMS_ITS | Encounter Summary ---
Author Organization [facility] Address [address] [place] [address] Phone Care Team Providers Care Product Marketing Coordinator Name Role Phone Kiran Garvey MD Primary Care Provider + [phone] Kiran Garvey MD Primary Care Provider + [phone] Lorena Taylor MD Primary Care Provider + [phone] Dante Olivarez Primary Care Provider [phone] Morro Doyle MD Primary Care Provider [phone] Nancy Alvares NP Primary Care Provider + [phone] Encounter Details Date Type Department Care Team (Latest Contact Info) Description 10/26/2006 Orders Only [facility] Scanning, Provider Social History Tobacco Use Types Packs/Day Years Used Date Smoking Tobacco: Never Assessed Comments Unknown Sex and Gender Information Value Date Recorded Sex Assigned at Not on file Legal Sex Female 9:09 PM SAWMILLING OPERATOR Gender Identity Not on file Sexual Orientation Not on file documented as of this encounter Plan of Treatment Scheduled Procedures Name Priority Associated Diagnoses Date/Ti me COLONOSCOPY Colon cancer screening documented as of this encounter Procedures Procedure Name Priority Date/Time Associated Diagnosis Comments SCAN - RADIOLOGY/IMAGING 10/26/2006 documented in this encounter Results * SCAN - RADIOLOGY/IMAGING (10/26/2006) Anatomical Region Laterality Modality Other us Provider Scanning Final Result documented in this encounter Visit Diagnoses Not on filedocumented in this encounter Care Teams Product Marketing Coordinator Relationship Specialty Start Date End Date Malench, Kiran E., MD [address] [place] [address] PCP - General 02/26/17 01/25/19 Kiran Garvey MD [address] [place] [address] PCP - General 03/21/15 02/25/17 Lorena Taylor MD [address] [place] [address] PCP - General Family Practice 01/26/19 03/31/21 Dante Olivarez PA [address] [facility] [address] [place] [address] PCP - General Physician Quarter Inspector 04/01/21 06/09/21 Morro Doyle MD [address] [facility] [address] [place] [address] PCP - General Internal Medicine 06/10/21 10/07/21 Nancy Alvares TANK INSULATOR RUBBER [address] [place] [id number] PCP - General Nurse Practitioner 10/08/21 documented as of this encounter
--- OUTSIDE RECORDS SUMMARY | 2025-01-17 11:01 | XMS_ITS | Referral Summary ---
Author Organization [facility] [address] Address [address] [place] [address] Care Team Providers Care Passenger Interline Clerk Name Role Phone Nacny Alvares NP Primary Care Provider Encounters Date Type Department Care Team Description 12/22/2024 Telephone [facility] Gastroenterology [address] [place] [address] Medical Office Building [address], [address] [place] [address] Ayanna Venegas RN GI path results 12/19/2024 8:30 AM REGIONAL EHS MANAGER - 12/19/2024 9:00 AM REGIONAL EHS MANAGER Surgery [facility] Endoscopy [address] [place] [address] Catrachito Link MD COLON BIOPSY 12/19/2024 8:43 AM REGIONAL EHS MANAGER Anesthesia Event [facility] Endoscopy [address] [place] [address] Grupo Orozco MD Boyle, Christine Michelle, RN ADMISSION 12/19/2024 7:11 AM REGIONAL EHS MANAGER - 12/19/2024 10:15 AM REGIONAL EHS MANAGER Hospital Encounter [facility] Endoscopy [address] [address] AlbertCoarse[address] [address] Catrachito Link MD Epigastric pain; Abdominal pain Discharge Disposition: Discharge to home or self care 12/04/2024 Telephone [facility] Gastroenterology [address] [place] [address] Medical Office [address] [place] [address] Bailey Merrill, DEVIN Reschedule 10/23/2024 3:00 PM REGIONAL EHS MANAGER Ancillary Procedure [facility] Medical Group Vascular and Vein Surgery at [address] [place] [address] Left carotid bruit from Last 3 Months Allergies No known active allergies Medications losartan [...] Evacuation Please follow the instructions from your [facility] GI providers office, not the instructions on the packaging 360 mL 4 025 Discontin ued(Thera py completed ) Active Problems Problem Noted Date Diagnosed Date Epigastric pain 10/12/2024 Abdominal pain 10/12/2024 Left carotid bruit 10/03/2024 Personal history of colonic polyps 11/16/2022 Overview (11/16/2022): Added automatically from request for surgery [id number] Family history of malignant neoplasm of gastrointestinal tract 11/16/2022 Overview (11/16/2022): Added automatically from request for surgery [id number] Parkinson disease 06/10/2021 Assessment & Plan (11/18/2021 4:42 PM REGIONAL EHS MANAGER): Patient continues at this time on pramipexole [...] Date Hypertension 05/01/2015 09/03/2020 Overview (03/04/2017): Hypertension Social History Tobacco Use Types Packs/Day Years [...] on file Legal Sex Female 9:09 PM REGIONAL EHS MANAGER Gender Identity Not on file Sexual Orientation Not on file Last Filed Vital Signs Vital Sign Reading Time Taken Comments Blood Pressure 131/76 12/19/2024 9:40 AM REGIONAL EHS MANAGER Pulse 66 12/19/2024 9:40 AM REGIONAL EHS MANAGER Temperature 36.3 C (97.3 F) 12/19/2024 9:15 AM REGIONAL EHS MANAGER Respiratory Rate 20 12/19/2024 9:40 AM REGIONAL EHS MANAGER Oxygen Saturation 100% 12/19/2024 9:40 AM REGIONAL EHS MANAGER Inhaled Oxygen Concentration - - Weight 90.3 kg (199 lb) 12/19/2024 7:50 AM REGIONAL EHS MANAGER Height 167.6 cm (5' 6 ) 12/19/2024 7:50 AM REGIONAL EHS MANAGER Body Mass Index 32.12 12/19/2024 7:50 AM REGIONAL EHS MANAGER Plan of Treatment Scheduled Procedures Name Priority Associated Diagnoses Date/Ti me COLONOSCOPY Colon cancer screening Procedures Procedure Name Priority Date/Time Associated Diagnosis Comments COLONOSCOPY 12/19/2024 8:53 AM REGIONAL EHS MANAGER SURGICAL PATHOLOGY Routine 12/19/2024 8:51 AM REGIONAL EHS MANAGER Epigastric pain Abdominal pain ESOPHAGOGASTRODUODENOSCOPY BIOPSY 12/19/2024 8:43 AM REGIONAL EHS MANAGER Epigastric pain Abdominal pain COLON BIOPSY 12/19/2024 8:43 AM REGIONAL EHS MANAGER Epigastric pain Abdominal pain EGD 12/19/2024 8:41 AM REGIONAL EHS MANAGER US CAROTIDS DUPLEX BILATERAL Schedule Routine, Read Routine (OP Routine) 10/23/2024 3:28 PM REGIONAL EHS MANAGER Left carotid bruit from Last 3 Months Results * Colonoscopy (12/19/2024 8:53 AM REGIONAL EHS MANAGER) Anatomical Region Laterality Modality Other Narrative Procedure Note Catrachito Link MD - 12/19/2024 8:53 AM CST ENDOSCOPY LAB Patient Name: Bijal Douglas Procedure Date: 12/19/2024 8:53 AM Date of : 1965 Admit Type: Outpatient Age: 59 Gender: Female Attending MD: Catrachito Link M.D. Room: [facility] ENDOSCOPY ROOM 04 Note Status: Finalized Procedure: Colonoscopy Indications: Abdominal pain, FH colon cancer Providers: Catrachito Link M.D. Referring MD: Jamel Aly.N.Alok Medicines: Monitored Anesthesia Care Complications: No immediate [...] The scope was passed under direct vision.The [id number] was introduced through the anusand advanced to [...] Final * Surgical pathology (12/19/2024 8:51 AM REGIONAL EHS MANAGER) Tissue (Gastric/Stomach biopsy) 12/19/2024 8:51 AM REGIONAL EHS MANAGER Tissue (Polyp(s), colon/colorectal, esophageal, gastric) 12/19/2024 9:04 AM REGIONAL EHS MANAGER Narrative PATHOLOGY [facility] - 12/21/2024 1:46 PM REGIONAL EHS MANAGER EPIC results best viewed via link to PDF [facility] [place] [address] Note to Patients: This report may contain [...] Gender: F : 1965 (Age: 59) Address: [address] [place], [place] [address] Hospital #: [id number] Taken:12/19/2024 Received:12/19/2024 Reported: 12/21/2024 Patient Type: [facility] EP SAME Client [facility] Service: Gastro Location: Physician(s): Homer Hicks FNP Diagnosis: A. Stomach, random biopsy: - Antral mucosa with reactive epithelial changes. - No Helicobacter pylori is seen. B. Colon, polyps, polypectomy: - Polypoid colonic mucosa with lymphoid aggregate and reactive epithelial changes. [facility]/12/20/2024 13:00 By this signature, I attest [...] interpretation for this case was performed at [facility], Department of Surgical Pathology, [address] [facility] [place], [place] [id number], [place] [address] CLIA # [id number] The performance characteristics of some immunohistochemical stains, fluorescence in-situ hybridization tests and immunophenotyping by flow cytometry cited in this report (if any) were determined by the Surgical Pathology and Flow Cytometry Departments at [facility] as part of an ongoing quality control scientist program and in compliance with federally mandated [...] Surgical Pathology and Flow Cytometry Departments of [facility]. It has not been cleared or approved by the U. S. Food and Drug Administration. IMAGES AND SCANNED DOCUMENTS, IF INCLUDED, ONLY VIEWABLE IN PDF VERSION OF REPORT us Catrachito Link MD LAB PATHOLOGY ORDERABLES F inal Result PATHOLOGY [facility] [phone] * EGD (12/19/2024 8:41 AM REGIONAL EHS MANAGER) Anatomical Region Laterality Modality Other Narrative Procedure Note Catrachito Link MD - 12/19/2024 8:41 AM CST ENDOSCOPY LAB Patient Name: Bijal Douglas Procedure Date: 12/19/2024 8:41 AM Date of : 1965 Admit Type: Outpatient Age: 59 Gender: Female Attending MD: Catrachito Link M.D. Room: [facility] ENDOSCOPY ROOM 04 Note Status: Finalized [...] and oxygen saturations were monitored continuously. The [id number] was introduced through the mouth,and advanced to [...] 0 Note Initiated On: 12/19/2024 8:41 AM us Catrachito Link MD ENDOSCOPY PROCEDURES Final Result * US Carotids Duplex Bilateral (10/23/2024 3:28 PM REGIONAL EHS MANAGER) Anatomical Region Laterality Modality Vascular Bilateral Ultrasound 10/23/2024 3:05 PM REGIONAL EHS MANAGER Narrative 10/24/2024 1:20 PM REGIONAL EHS MANAGER Vascular & Vein Surgery [address] [place] [address] Carotid Duplex Ultrasound Report Patient Name: BIJAL DOUGLAS L : 1965 (59y 1m) Study Date: 10/23/2024 3:05:08 PM Gender: F [place]ra [place] Mason: MAURICE Location: VVSE Ref Provider: GILBERT KOTHARI Quality: Adequate Order Provider: GILBERT KOTHARI PROCEDURES: Carotid Report: Carotid duplex examination of [...] above. Electronically Signed By: Agustin Blank MD [facility] 2024-10-24 13:19:18 REGIONAL EHS MANAGER Procedure Note Agustin Blank MD - 10/24/2024 Vascular & Vein Surgery [address] [facility] [address] Carotid Duplex Ultrasound Report Patient Name: BIJAL DOUGLAS L : 1965 (59y 1m) Study Date: 10/23/2024 3:05:08 PM Gender: F [place]ra [place] Mason: MAURICE Location: VVSE Ref Provider: GILBERT KOTHARI Quality: Adequate Order Provider: GILBERT KOTHARI PROCEDURES: Carotid Report: Carotid duplex examination of [...] above. Electronically Signed By: Agustin Blank MD [facility] 2024-10-24 13:19:18 REGIONAL EHS MANAGER us Gilbert Kothari MD IM US PROCEDURES Final R esult from Last 3 Months Insurance [facility] BLUE ACCESS [place] Advance Directives For more information, please contact: [phone] * Full Code (Latest Code Status on File) Date Activated Date Inactivated Comments 12/19/2024 7:45 AM 12/19/2024 6:30 PM * Full Code Date Activated Date Inactivated Comments 11/18/2022 11:43 AM 11/18/2022 5:30 PM Care Teams Passenger Interline Clerk Relationship Specialty Start Date End Date Nancy Alvares NP [address] [place] [address] PCP - General Nurse Practitioner 10/08/21
--- OUTSIDE RECORDS SUMMARY | 2025-01-17 11:01 | XMS_ITS | Encounter Summary ---
Author Organization [facility] Address [address] [place] [address] Phone Care Team Providers Care Driver Merchandiser Name Role Phone Morro Doyle MD Primary Care Provider [phone] Nancy Alvares NP Primary Care Provider + [phone] Encounter Details Date Type Department Care Team (Latest Contact Info) Description 06/30/2021 Orders Only [facility] Scanning, Provider Social History Tobacco Use Types Packs/Day Years Used Date Smoking Tobacco: Former Cigarettes 0 08/19/1987 - 08/19/1991 Smokeless Tobacco: Never Alcohol Use Standard Drinks/Week Comments No 0 (1 standard drink = 0.6 oz pur e alcohol) Comments Unknown Sex and Gender Information Value Date Recorded Sex Assigned at Not on file Legal Sex Female 9:09 PM PARADICHLOROBENZENE TENDER Gender Identity Not on file Sexual Orientation Not on file documented as of this encounter Plan of Treatment Scheduled Procedures Name Priority Associated Diagnoses Date/Ti me COLONOSCOPY Colon cancer screening documented as of this encounter Procedures Procedure Name Priority Date/Time Associated Diagnosis Comments SCAN - RADIOLOGY/IMAGING 06/30/2021 documented in this encounter Results * SCAN - RADIOLOGY/IMAGING (06/30/2021) Anatomical Region Laterality Modality Other us Provider Scanning Final Result documented in this encounter Visit Diagnoses Not on filedocumented in this encounter Care Teams Driver Merchandiser Relationship Specialty Start Date End Date Morro Doyle MD [address] [place] [id number] PCP - General Internal Medicine 06/10/21 10/07/21 Nancy Alvares NP [address] [place] [address] PCP - General Nurse Practitioner 10/08/21 documented as of this encounter
--- OUTSIDE RECORDS SUMMARY | 2025-01-17 11:01 | XMS_ITS | Encounter Summary ---
Author Organization [facility] Address [address] [place] [address] Phone Care Team Providers Care Cosmetics And Toiletries Salesperson Name Role Phone Kiran Garvey MD Primary Care Provider + [phone] Kiran Garvey MD Primary Care Provider + [phone] Lorena Taylor MD Primary Care Provider + [phone] Dante Olivarez Primary Care Provider [phone] Morro Doyle MD Primary Care Provider [phone] Nancy Alvares NP Primary Care Provider + [phone] Encounter Details Date Type Department Care Team (Latest Contact Info) Description 02/27/2011 Orders Only [facility] Scanning, Provider Social History Tobacco Use Types Packs/Day Years Used Date Smoking Tobacco: Never Assessed Comments Unknown Sex and Gender Information Value Date Recorded Sex Assigned at Not on file Legal Sex Female 9:09 PM CHAR CONVEYOR TENDER CELLAR Gender Identity Not on file Sexual Orientation Not on file documented as of this encounter Plan of Treatment Scheduled Procedures Name Priority Associated Diagnoses Date/Ti me COLONOSCOPY Colon cancer screening documented as of this encounter Procedures Procedure Name Priority Date/Time Associated Diagnosis Comments SCAN - RADIOLOGY/IMAGING 02/27/2011 documented in this encounter Results * SCAN - RADIOLOGY/IMAGING (02/27/2011) Anatomical Region Laterality Modality Other us Provider Scanning Final Result documented in this encounter Visit Diagnoses Not on filedocumented in this encounter Care Teams Cosmetics And Toiletries Salesperson Relationship Specialty Start Date End Date Malench, Kiran E., MD [address] [place] [address] PCP - General 02/26/17 01/25/19 Kiran Garvey MD [address] [place] [address] PCP - General 03/21/15 02/25/17 Lorena Taylor MD [address] [place] [address] PCP - General Family Practice 01/26/19 03/31/21 Dante Olivarez PA [address] [facility] [address] [place] [address] PCP - General Physician Button Decorating Machine Operator 04/01/21 06/09/21 Morro Doyle MD [address] [facility] [address] [place] [address] PCP - General Internal Medicine 06/10/21 10/07/21 Nancy Alvares ENGLISH COMPOSITION TEACHER [address] [place] [address] PCP - General Nurse Practitioner 10/08/21 documented as of this encounter
--- OUTSIDE RECORDS SUMMARY | 2025-01-17 11:01 | XMS_ITS | Continuity of Care Document ---
Author Organization [facility] Address [address] [place] [address] [address] [place] [address] Phone Care Team Providers Care Assistant Women'S Rowing Coach Name Role Phone Jin OD, Toby Unavailable Unavailable Procedures Procedure Date Office/outpatient Visit, [facility] Advance Directives Directive Yes / No Effective Date File Name No Information Encounters Encounter Description Practice Location Reason(s) For Visit Diagnoses Date Provider Providers Copied on Encounter Office/outpat ient Visit, [facility], [address], [place], [place], [id number], [place] tel:[phone] [facility] No Information 2-201 0 Jin OD Toby. [address] , [address], [place], [address], [place]. tel:[phone] Family History Family Member Type Diagnosis Age At Onset No Information Payers Payer name Insurance type Covered alliance party ID Authoriza tion(s) No Information Social History [...]
--- OUTSIDE RECORDS SUMMARY | 2025-01-17 11:01 | XMS_ITS | Encounter Summary ---
Author Organization [facility] Address [address] [place] [address] Phone Care Team Providers Care Automotive Glass Installer Name Role Phone Kiran Garvey MD Primary Care Provider + [phone] Kiran Garvey MD Primary Care Provider + [phone] Lorena Taylor MD Primary Care Provider + [phone] Dante Olivarez Primary Care Provider [phone] Morro Doyle MD Primary Care Provider [phone] Nancy Alvares NP Primary Care Provider + [phone] Encounter Details Date Type Department Care Team (Latest Contact Info) Description 03/19/2015 Orders Only [facility] Scanning, Provider Social History Tobacco Use Types Packs/Day Years Used Date Smoking Tobacco: Never Assessed Comments Unknown Sex and Gender Information Value Date Recorded Sex Assigned at Not on file Legal Sex Female 9:09 PM SURGERY SCHEDULING COORDINATOR Gender Identity Not on file Sexual Orientation Not on file documented as of this encounter Plan of Treatment Scheduled Procedures Name Priority Associated Diagnoses Date/Ti me COLONOSCOPY Colon cancer screening documented as of this encounter Procedures Procedure Name Priority Date/Time Associated Diagnosis Comments SCAN - RADIOLOGY/IMAGING 03/19/2015 documented in this encounter Results * SCAN - RADIOLOGY/IMAGING (03/19/2015) Anatomical Region Laterality Modality Other us Provider Scanning Edited Result - Final documented in this encounter Visit Diagnoses Not on filedocumented in this encounter Care Teams Automotive Glass Installer Relationship Specialty Start Date End Date Kiran Garvey MD [address] [place] [address] PCP - General 02/26/17 01/25/19 Kiran Garvey MD [address] [place] [address] PCP - General 03/21/15 02/25/17 Lorena Taylor MD [address] [place] [address] PCP - General Family Practice 01/26/19 03/31/21 Dante Olivarez PA [address] [facility] [address] [place] [address] PCP - General Physician Child Psychiatrist 04/01/21 06/09/21 Morro Doyle MD [address] [facility] [address] [place] [address] PCP - General Internal Medicine 06/10/21 10/07/21 Nancy Alvares NP [address] [place] [address] PCP - General Nurse Practitioner 10/08/21 documented as of this encounter
--- OUTSIDE RECORDS SUMMARY | 2025-01-17 11:01 | XMS_ITS | Encounter Summary ---
Author Organization [facility] Address [address] [place] [address] Care Team Providers Care Cork Floor Installer Name Role Phone Nancy Alvares Primary Care Provider [phone] Encounter Details Date Type Department Care Team (Late st Contact Info) Description 11/26/2023 MyChart Message Enc [facility] Medical Group Family & Internal Medicine [facility] [address] [place] [phone] Nancy Alvares FNP [facility] [place], [place] [id number] Coughing Social History Tobacco Use Types Packs/Day Years Used Date Smoking Tobacco: Never Smokeless Tobacco: Never Alcohol Use Standard Drinks/Week Comments Not Currently 0 (1 standard drink = 0.6 oz pur e alcohol) PHQ-2 Answer Date Recorded Patient Health Questionnaire-2 Score 6 11/23/2023 Comments No Sex and Gender Information Value Date Recorded Sex Assigned at Not on file Legal Sex Female 8:29 AM CDT Gender Identity Female 12/23/2021 9:01 AM CLINICAL MASSAGE THERAPIST Sexual Orientation Straight 12/23/2021 9: 01 AM CLINICAL MASSAGE THERAPIST documented as of this encounter Progress Notes * KIANNA Denis - 11/26/2023 2:28 PM CST I will send it out but yes test for covid ICAL MASSAGE THERAPIST documented in this encounter Plan of Treatment Not on file documented as of this encounter Visit Diagnoses Not on filedocumented in this encounter Additional Health Concerns Assessment Noted Time PHQ-9 Depression Total Score: 21 023 4:28 PM CLINICAL MASSAGE THERAPIST documented as of this encounter Care Teams Cork Floor Installer Relationship Specialty Start Date End Date Nancy Alvares FNP [address] [place] [address] PCP - General Nurse Practitioner Family 09/12/21 documented as of this encounter
--- OUTSIDE RECORDS SUMMARY | 2025-01-17 11:01 | XMS_ITS | Encounter Summary ---
Author Organization [facility] Address [address] [place] [address] Care Team Providers Care Weaver Axminster Name Role Phone Nancy Alvares Primary Care Provider [phone] Encounter Details Date Type Department Care Team (Late st Contact Info) Description 08/13/2023 MyChart Message Enc [facility] Medical Group Family & Internal Medicine [facility] [address] [place] [address] Nancy Alvares FNP [facility] [place], [place] [phone] Sick Social History Tobacco Use Types Packs/Day Years [...] CDT Gender Identity Female 12/23/2021 9:01 AM RN OBSERVATION Sexual Orientation Straight 12/23/2021 9: 01 AM RN OBSERVATION documented as of this encounter Progress Notes * KIANNA Denis - 08/13/2023 2:40 PM CDT Tussionex and tamiflu sent to her pharmacy * KIANNA Denis - 08/13/2023 9:02 AM CDT She needs to get covid testing, does anyone have openings for virtual documented in this encounter Plan of Treatment Not on file documented as of this encounter Visit Diagnoses Not on filedocumented in this encounter Additional Health Concerns Assessment Noted Time PHQ-9 Depression Total Score: 12 021 12:38 PM CDT documented as of this encounter Care Teams Weaver Axminster Relationship Specialty Start Date End Date Nancy Alvares FNP [address] [place] [address] PCP - General Nurse Practitioner Family 09/12/21 documented as of this encounter
--- OUTSIDE RECORDS SUMMARY | 2025-01-17 11:01 | XMS_ITS | Encounter Summary ---
Author Organization [facility] Address [address] [place] [address] Care Team Providers Care School Health Assistant Name Role Phone Nancy Alvares Primary Care Provider [phone] Encounter Details Date Type Department Care Team (Late st Contact Info) Description 02/18/2022 MyChart Message Enc [facility] Medical Group Family & Internal Medicine [place] [address] [place] [address] Nancy Alvares FNP [address] [place], [place] [phone] Bladder infection Social History Tobacco Use Types [...] CDT Gender Identity Female 12/23/2021 9:01 AM REGIONAL SAFETY MANAGER Sexual Orientation Straight 12/23/2021 9: 01 AM REGIONAL SAFETY MANAGER COVID-19 Exposure Response Date Recorded In the last 10 days, have yo u been in contact with someone who was confirmed or suspected to have Coronavirus/COVID-19? Unable to assess 02/20/2022 11:26 AM CDT documented as of this encounter Progress Notes * KIANNA Denis - 02/19/2022 12:55 PM CDT Can she give us a UA? * KIANNA Denis - 02/18/2022 3:27 PM CDT We need to get a UA if we have not already done so to send for culture documented in this encounter Plan of Treatment Not on file documented as of this encounter Visit Diagnoses Not on filedocumented in this encounter Additional Health Concerns Assessment Noted Time PHQ-9 Depression Total Score: 12 021 12:38 PM CDT documented as of this encounter Care Teams School Health Assistant Relationship Specialty Start Date End Date Nancy Alvares FNP [address] [place] [address] PCP - General Nurse Practitioner Family 09/12/21 documented as of this encounter
--- OUTSIDE RECORDS SUMMARY | 2025-01-17 11:01 | XMS_ITS | Encounter Summary ---
Author Organization [facility] Address [address] [place] [address] Care Team Providers Care Transmission Maintenance Supervisor Name Role Phone Nancy Alvares Primary Care Provider [phone] Encounter Details Date Type Department Care Team (Late st Contact Info) Description 07/13/2022 MyChart Message Enc [facility] Medical Group Family & Internal Medicine [facility] [address] [place] [address] Nancy Alvares FNP [address] [place], [place] [phone] Lorazepam Social History Tobacco Use Types Packs/Day Years [...] CDT Gender Identity Female 12/23/2021 9:01 AM MASSOTHERAPIST Sexual Orientation Straight 12/23/2021 9: 01 AM MASSOTHERAPIST documented as of this encounter Progress Notes * Kiley Jimenes MA - 07/13/2022 5:14 PM CDTFrom: Bijal Kyle To: Nancy Alvares Sent: 07/13/2022 12:13 PM CDT Subject: Lorazepam I had [facility] submit for my refill on my Lorazapam 0.5 MG that I take one every 8 hours and have always received 90 tablets for the month. I went to scrap picker my refill on July 10 and it had the same instructions, but on was for 30 pills. Can you have Nancy send in an updated refill like the previous ones? Thank you, P kelsie Kyle documented in this encounter Plan of Treatment Not on file documented as of this encounter Visit Diagnoses Not on filedocumented in this encounter Additional Health Concerns Assessment Noted Time PHQ-9 Depression Total Score: 12 021 12:38 PM CDT documented as of this encounter Care Teams Transmission Maintenance Supervisor Relationship Specialty Start Date End Date Nancy Alvares FNP [address] [place] [address] PCP - General Nurse Practitioner Family 09/12/21 documented as of this encounter
--- OUTSIDE RECORDS SUMMARY | 2025-01-17 11:01 | XMS_ITS | Encounter Summary ---
Author Organization [facility] Address [address] [place] [address] Phone Care Team Providers Care Wire Chief Name Role Phone Kiran Garvey MD Primary Care Provider + [phone] Krian Garvey MD Primary Care Provider + [phone] Lorena Taylor MD Primary Care Provider + [phone] Dante Olivarez Primary Care Provider [phone] Morro Doyle MD Primary Care Provider [phone] Nancy Alvares NP Primary Care Provider + [phone] Encounter Details Date Type Department Care Team (Latest Contact Info) Description 02/11/2004 Orders Only [facility] Scanning, Provider Social History Tobacco Use Types Packs/Day Years Used Date Smoking Tobacco: Never Assessed Comments Unknown Sex and Gender Information Value Date Recorded Sex Assigned at Not on file Legal Sex Female 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 Gender Identity Not on file Sexual Orientation Not on file documented as of this encounter Plan of Treatment Scheduled Procedures Name Priority Associated Diagnoses Date/Ti me COLONOSCOPY Colon cancer screening documented as of this encounter Procedures Procedure Name Priority Date/Time Associated Diagnosis Comments SCAN - RADIOLOGY/IMAGING 02/11/2004 documented in this encounter Results * SCAN - RADIOLOGY/IMAGING (02/11/2004) Anatomical Region Laterality Modality Other us Provider Scanning Final Result documented in this encounter Visit Diagnoses Not on filedocumented in this encounter Care Teams Wire Chief Relationship Specialty Start Date End Date Malench, Kiran E., MD [address] [address] PCP - General 02/26/17 01/25/19 Kiran Garvey MD [address] [place] [address] PCP - General 03/21/15 02/25/17 Lorena Taylor MD [address] [place] [address] PCP - General Family Practice 01/26/19 03/31/21 Dante Olivarez PA [address] [facility] [address] [place] [address] PCP - General Physician Vb Net Developer 04/01/21 06/09/21 Morro Doyle MD [address] [facility] 1 [place] [address] PCP - General Internal Medicine 06/10/21 10/07/21 Nancy Alvares ELECTRICIAN HELPER POWERHOUSE [address] [place] [address] PCP - General Nurse Practitioner 10/08/21 documented as of this encounter
--- OUTSIDE RECORDS SUMMARY | 2025-01-17 11:01 | XMS_ITS | Encounter Summary ---
Author Organization [facility] Address [address] [place] [address] Phone Care Team Providers Care Career Development Counselor Name Role Phone Kiran Garvey MD Primary Care Provider + [phone] Kiran Garvey MD Primary Care Provider + [phone] Lorena Taylor MD Primary Care Provider + [phone] Dante Olivarez Primary Care Provider [phone] Morro Doyle MD Primary Care Provider [phone] Nancy Alvares NP Primary Care Provider + [phone] Encounter Details Date Type Department Care Team (Latest Contact Info) Description 02/10/2007 Orders Only [facility] Scanning, Provider Social History Tobacco Use Types Packs/Day Years Used Date Smoking Tobacco: Never Assessed Comments Unknown Sex and Gender Information Value Date Recorded Sex Assigned at Not on file Legal Sex Female 9:09 PM SHOE PLANNER Gender Identity Not on file Sexual Orientation Not on file documented as of this encounter Plan of Treatment Scheduled Procedures Name Priority Associated Diagnoses Date/Ti me COLONOSCOPY Colon cancer screening documented as of this encounter Procedures Procedure Name Priority Date/Time Associated Diagnosis Comments SCAN - RADIOLOGY/IMAGING 02/10/2007 documented in this encounter Results * SCAN - RADIOLOGY/IMAGING (02/10/2007) Anatomical Region Laterality Modality Other us Provider Scanning Final Result documented in this encounter Visit Diagnoses Not on filedocumented in this encounter Care Teams Career Development Counselor Relationship Specialty Start Date End Date Malench, Kiran E., MD [address] [place] [address] PCP - General 02/26/17 01/25/19 Kiran Garvey MD [address] [place] [address] PCP - General 03/21/15 02/25/17 Lorena Taylor MD [address] [place] [address] PCP - General Family Practice 01/26/19 03/31/21 Dante Olivarez PA [address] [facility] [address] [place] [address] PCP - General Physician Property Management Supervisor 04/01/21 06/09/21 Morro Doyle MD [address] [facility] 1 [place] [address] PCP - General Internal Medicine 06/10/21 10/07/21 Nancy Alvares HOT BILLET SHEAR OPERATOR [address] [place] [address] PCP - General Nurse Practitioner 10/08/21 documented as of this encounter
--- OUTSIDE RECORDS SUMMARY | 2025-01-17 11:01 | XMS_ITS | Encounter Summary ---
Author Organization [facility] Address [address] [place] [address] Phone Care Team Providers Care Overhead Cleaner Name Role Phone Kiran Garvey MD Primary Care Provider + [phone] Kiran Garvey MD Primary Care Provider + [phone] Lorena Taylor MD Primary Care Provider + [phone] Dante Olivarez Primary Care Provider [phone] Morro Doyle MD Primary Care Provider [phone] Nancy Alvares NP Primary Care Provider + [phone] Encounter Details Date Type Department Care Team (Latest Contact Info) Description 11/23/2006 Orders Only [facility] Scanning, Provider Social History Tobacco Use Types Packs/Day Years Used Date Smoking Tobacco: Never Assessed Comments Unknown Sex and Gender Information Value Date Recorded Sex Assigned at Not on file Legal Sex Female 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 Gender Identity Not on file Sexual Orientation Not on file documented as of this encounter Plan of Treatment Scheduled Procedures Name Priority Associated Diagnoses Date/Ti me COLONOSCOPY Colon cancer screening documented as of this encounter Procedures Procedure Name Priority Date/Time Associated Diagnosis Comments SCAN - RADIOLOGY/IMAGING 11/23/2006 documented in this encounter Results * SCAN - RADIOLOGY/IMAGING (11/23/2006) Anatomical Region Laterality Modality Other us Provider Scanning Final Result documented in this encounter Visit Diagnoses Not on filedocumented in this encounter Care Teams Overhead Cleaner Relationship Specialty Start Date End Date Malench, Kiran E., MD [address] [place] [address] PCP - General 02/26/17 01/25/19 Kiran Garvey MD [address] [place] [address] PCP - General 03/21/15 02/25/17 Lorena Taylor MD [address] [place] [address] PCP - General Family Practice 01/26/19 03/31/21 Dante Olivarez PA [address] [facility] [address] [place] [address] PCP - General Physician Clinical Cytopathologist 04/01/21 06/09/21 Morro Doyle MD [address] [facility] 1 [place] [address] PCP - General Internal Medicine 06/10/21 10/07/21 Nancy Alvares ASSISTANT PROFESSOR OF GEOGRAPHY [address] [place] [address] PCP - General Nurse Practitioner 10/08/21 documented as of this encounter
== END 2025-01-17 10:56 | disposition home or self-care (01) ==
LOC: ANHIMG 10:56
PROVIDERS: PCP Nurse Practitioner Family; Visit Provider Nurse Practitioner Family
DX: Z78.0 Asymptomatic menopausal state (principal); M85.852 Other specified disorders of bone density and structure, left thigh; M85.851 Other specified disorders of bone density and structure, right thigh
CPT/HCPCS: 77080

== ENCOUNTER 2025-01-18 16:22 | Outpatient (CLI) | payer BC, SELFPAY ==
--- NOTE | ~2025-01-18 | XR_ITS ---
EXAMINATION: XR chest 2V DATE: 01/18/2025 16:39 INDICATION: Cough, unspecified. TECHNIQUE: Frontal and lateral views of the chest were obtained. COMPARISON: Chest 2 views 09/25/2021 FINDINGS: There is no pneumonia, pleural effusion, or pneumothorax. The heart size is normal. IMPRESSION: 1. No acute cardiopulmonary disease. Reviewed, dictated and finalized at location A. ICAL PROCESS OPERATOR
--- OUTSIDE RECORDS SUMMARY | 2025-01-18 16:28 | XMS_ITS | Encounter Summary ---
Author Organization [facility] Address [address] [place] [address] Phone Care Team Providers Care Agile Business Analyst Name Role Phone Kiran Garvey MD Primary Care Provider + [phone] Kiran Garvey MD Primary Care Provider + [phone] Lorena Taylor MD Primary Care Provider + [phone] Dante Olivarez Primary Care Provider [phone] Morro Doyle MD Primary Care Provider [phone] Nancy Alvares NP Primary Care Provider + [phone] Encounter Details Date Type Department Care Team (Latest Contact Info) Description 04/16/2006 Orders Only [facility] Scanning, Provider Social History Tobacco Use Types Packs/Day Years Used Date Smoking Tobacco: Never Assessed Comments Unknown Sex and Gender Information Value Date Recorded Sex Assigned at Not on file Legal Sex Female 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 Gender Identity Not on file Sexual Orientation [...] on filedocumented in this encounter Care Teams Agile Business Analyst Relationship Specialty Start Date End Date Malench, Kiran E., MD [address] [place] [address] PCP - General 02/26/17 01/25/19 Kiran Garvey MD [address] [place] [address] PCP - General 03/21/15 02/25/17 Lorena Taylor MD [address] [place] [address] PCP - General Family Practice 01/26/19 03/31/21 Dante Olivarez PA [address] [facility] [address] [place] [address] PCP - General Physician Machined Parts Metal Sprayer 04/01/21 06/09/21 Morro Doyle MD [address] [facility] 1 [place] [address] PCP - General Internal Medicine 06/10/21 10/07/21 Nancy Alvares COOK FISH EGGS [address] [place] [address] PCP - General Nurse Practitioner 10/08/21 documented as of this encounter
--- OUTSIDE RECORDS SUMMARY | 2025-01-18 16:28 | XMS_ITS | Referral Summary ---
Author Organization [facility] Address [address] [facility] [place] [address] Care Team Providers Care Trial Manager Name Role Phone Unavailable Primary Care Provider Unavailabl e Source Comments [facility],non-owned Affiliates and Associated Physician Practices is amultiple site organization consisting of ambulatory clinics and hospital sitesin [place], [place], [place] and [place]. This disclosure is being madepursuant to the Care Everywhere program and may not contain all information available regarding this patient. Last updated 18.[facility] Social History Tobacco Use Types Packs/Day Years Used Date Smoking Tobacco: Never Assessed Sex and Gender Information Value Date Recorded Sex Assigned at Not on file Gender Identity Not on file Sexual Orientation Not on file Plan of Treatment Not on file
--- OUTSIDE RECORDS SUMMARY | 2025-01-18 16:28 | XMS_ITS | Referral Summary ---
Author Organization [facility] [address] Address [address] [place] [address] Care Team Providers Care Epic Willow Analyst Name Role Phone Nancy Alvares NP Primary Care Provider Encounters Date Type Department Care Team Description 12/22/[address] [facility] Gastroenterology [address] [place] [address] Medical Office [address] [place] [address] Ayanna Venegas RN GI path results 12/19/2024 8:30 AM CARD BRUSHER - 12/19/2024 9:00 AM CARD BRUSHER Surgery [facility] [address] [place] [address] Catrachito Link MD COLON BIOPSY 12/19/2024 8:43 AM CARD BRUSHER Anesthesia Event [facility] [address] [place] [address] Grupo Orozco MD Boyle, Christine Michelle, COSMETIC SURGEON 12/19/2024 7:11 AM CARD BRUSHER - 12/19/2024 10:15 AM CARD BRUSHER Hospital Encounter [facility] [address] [place] [address] Catrachito Link MD Epigastric pain; Abdominal pain Discharge Disposition: Discharge to home or self care 12/04/[address] [facility] Gastroenterology [address] [place] [address] Medical Office [address] [place] [address] Bailey Merrill, DEVIN Reschedule 10/23/2024 3:00 PM CARD BRUSHER Ancillary Procedure [facility] Vascular and Vein Surgery at [address] [place] [address] Left carotid bruit from Last 3 Months Allergies No known active allergies Medications losartan (COZAAR) 50 mg tablet take 1 tablet by oral route every day 0 0 5 Active aspirin-acetami nophen-caffeine (EXCEDRIN EXTRA STRENGTH) 250-250-65 mg per tablet [...] Active Symbicort 80-4.5 mcg/actuation inhaler 1 Active HYDROcodone-chl orpheniramine ER (TUSSIONEX PENNKINETIC) 2-1.6 mg/mL ER suspension Take 2.5 mL by mouth every 12 (twelve) hours as needed 1 Active ondansetron (ZOFRAN) 4 mg tablet TAKE 1 TABLET BY MOUTH EVERY 6 HOURS NEEDED FOR NAUSEA OR VOMITING 1 Active folic acid (FOLVITE) 1 mg tablet 2 Active Ciprodex otic suspension 3 Active methylPREDNISol one (MEDROL DOSEPACK) 4 mg Dosepack 3 Active methylPREDNISol one (MEDROL) 4 mg tablet 3 Active omeprazole (PriLOSEC) 40 mg capsule TAKE 1 CAPSULE(40 MG) BY MOUTH DAILY 30 capsule 11 4 Active pramipexole (MIRAPEX) 0.25 mg tabletIndicatio ns:Parkinson disease (HCC) TAKE 1 TABLET(0.25 MG) BY MOUTH THREE TIMES DAILY 90 tablet 4 Active cholecalciferol (VITAMIN D-3) 50,000 unit capsule Take 1 capsule (50,000 Units total) by mouth once a week 4 Active fluticasone propionate (FLONASE) 50 mcg/actuation nasal spray Administer 2 sprays into affected nostril(s) daily 3 Active omeprazole (PriLOSEC) 40 mg capsule Take 1 capsule (40 mg total) by mouth 2 (two) times a day 60 capsule 11 5 Active Active Problems Problem Noted Date Diagnosed Date Epigastric pain 10/12/2024 Abdominal pain 10/12/2024 Left carotid bruit 10/03/2024 Personal history of colonic polyps 11/16/2022 Overview (11/16/2022): Added automatically from request for surgery [id number] Family history of malignant neoplasm of gastrointestinal tract 11/16/2022 Overview (11/16/2022): Added automatically from request for surgery [id number] Parkinson disease 06/10/2021 Assessment & Plan (11/18/2021 4:42 PM CARD BRUSHER): Patient continues at this time on pramipexole [...] on file Legal Sex Female 9:09 PM CARD BRUSHER Gender Identity Not on file Sexual Orientation Not on file Last Filed Vital Signs Vital Sign Reading Time Taken Comments Blood Pressure 131/76 12/19/2024 9:40 AM CARD BRUSHER Pulse 66 12/19/2024 9:40 AM CARD BRUSHER Temperature 36.3 C (97.3 F) 12/19/2024 9:15 AM CARD BRUSHER Respiratory Rate 20 12/19/2024 9:40 AM CARD BRUSHER Oxygen Saturation 100% 12/19/2024 9:40 AM CARD BRUSHER Inhaled Oxygen Concentration - - Weight 90.3 kg (199 lb) 12/19/2024 7:50 AM CARD BRUSHER Height 167.6 cm (5' 6 ) 12/19/2024 7:50 AM CARD BRUSHER Body Mass Index 32.12 12/19/2024 7:50 AM CARD BRUSHER Plan of Treatment Scheduled Procedures Name Priority Associated Diagnoses Date/Ti me COLONOSCOPY Colon cancer screening Procedures Procedure Name Priority Date/Time Associated Diagnosis Comments COLONOSCOPY 12/19/2024 8:53 AM CARD BRUSHER SURGICAL PATHOLOGY Routine 12/19/2024 8:51 AM CARD BRUSHER Epigastric pain Abdominal pain ESOPHAGOGASTRODUODENOSCOPY BIOPSY 12/19/2024 8:43 AM CARD BRUSHER Epigastric pain Abdominal pain COLON BIOPSY 12/19/2024 8:43 AM CARD BRUSHER Epigastric pain Abdominal pain EGD 12/19/2024 8:41 AM CARD BRUSHER US CAROTIDS DUPLEX BILATERAL Schedule Routine, Read Routine (OP Routine) 10/23/2024 3:28 PM CARD BRUSHER Left carotid bruit from Last 3 Months Results * Colonoscopy (12/19/2024 8:53 AM CARD BRUSHER) Anatomical Region Laterality Modality Other Narrative Procedure Note Catrachito Link MD - 12/19/2024 8:53 AM CST ENDOSCOPY LAB Patient Name: Bijal Douglas Procedure Date: 12/19/2024 8:53 AM Date of : 1965 Admit Type: Outpatient Age: 59 Gender: Female Attending MD: Catrachito Link M.D. Room: [facility] ENDOSCOPY ROOM 04 Note Status: Finalized Procedure: Colonoscopy Indications: Abdominal pain, FH colon cancer Providers: Catrachito Link M.D. Referring MD: Palomo [...] The scope was passed under direct vision.The [id number] was introduced through the anusand advanced to [...] 0 Note Initiated On: 12/19/2024 8:53 AM Catrachito Link MD ENDOSCOPY PROCEDURES Edite d Result - Final * Surgical pathology (12/19/2024 8:51 AM CARD BRUSHER) Tissue (Gastric/Stomach biopsy) 12/19/2024 8:51 AM CARD BRUSHER Tissue (Polyp(s), colon/colorectal, esophageal, gastric) 12/19/2024 9:04 AM CARD BRUSHER Narrative PATHOLOGY BJ - 12/21/2024 1:46 PM CARD BRUSHER EPIC results best viewed via link to PDF [facility] [place] [address] Note to Patients: This report may contain [...] Gender: F : 1965 (Age: 59) Address: [address] [place] [address] Hospital #: [id number] Taken:12/19/2024 Received:12/19/2024 Reported: 12/21/2024 Patient Type: [facility] EP SAME Client [facility] Service: Gastro Location: Physician(s): Homer Hicks [facility] Diagnosis: A. Stomach, random biopsy: - Antral mucosa with reactive epithelial changes. - No Helicobacter pylori is seen. B. Colon, polyps, polypectomy: - Polypoid colonic mucosa with lymphoid aggregate and reactive epithelial changes. chx/12/20/2024 13:00 By this signature, I attest that [...] interpretation for this case was performed at [facility], Department of Surgical Pathology, [address] [facility] [address], [id number], [place] [address] CLIA # [id number] The performance characteristics of some immunohistochemical stains, fluorescence in-situ hybridization tests and immunophenotyping by flow cytometry cited in this report (if any) were determined by the Surgical Pathology and Flow Cytometry Departments at [facility] as part of an ongoing senior quality analyst program and in compliance with federally mandated [...] Surgical Pathology and Flow Cytometry Departments of [facility]. It has not been cleared or approved by the U. S. Food and Drug Administration. IMAGES AND SCANNED DOCUMENTS, IF INCLUDED, ONLY VIEWABLE IN PDF VERSION OF REPORT Catrachito Link MD LAB PATHOLOGY ORDERABLES F inal Result PATHOLOGY [facility] [phone] * EGD (12/19/2024 8:41 AM CARD BRUSHER) Anatomical Region Laterality Modality Other Narrative Procedure Note Catrachito Link MD - 12/19/2024 8:41 AM CST ENDOSCOPY LAB Patient Name: Bijal Douglas Procedure Date: 12/19/2024 8:41 AM Date of : 1965 Admit Type: Outpatient Age: 59 Gender: Female Attending MD: Catrachito Link M.D. Room: [facility] ENDOSCOPY ROOM 04 Note Status: Finalized [...] and oxygen saturations were monitored continuously. The [id number] was introduced through the mouth,and advanced to [...] US Carotids Duplex Bilateral (10/23/2024 3:28 PM CARD BRUSHER) Anatomical Region Laterality Modality Vascular Bilateral Ultrasound 10/23/2024 3:05 PM CARD BRUSHER Narrative 10/24/2024 1:20 PM CARD BRUSHER Vascular & Vein Surgery [address] [place] [address] Carotid Duplex Ultrasound Report Patient Name: BIJAL DOUGLAS L : 1965 (59y 1m) Study Date: 10/23/2024 3:05:08 PM Gender: F Chemicals Distiller: Location: [facility] Ref Provider: GILBERT KOTHARI Quality: Adequate Order [...] above. Electronically Signed By: Agustin Blank MD [facility] 2024-10-24 13:19:18 CARD BRUSHER Procedure Note Agustin Blank MD - 10/24/2024 Vascular & Vein Surgery [address] [place] [address] Carotid Duplex Ultrasound Report Patient Name: BIJAL DOUGLAS L : 1965 (59y 1m) Study Date: 10/23/2024 3:05:08 PM Gender: F Chemicals Distiller: MAURICE Location: [facility] Ref Provider: GILBERT KOTHARI [...] above. Electronically Signed By: Agustin Blank MD [facility] 2024-10-24 13:19:18 CARD BRUSHER us Gilbert Kothari MD IM US PROCEDURES Final R esult from Last 3 Months Insurance [employer] [place] [employer] [place] Advance Directives For more information, please contact: [phone] * Full Code (Latest Code Status on File) Date Activated Date Inactivated Comments 12/19/2024 7:45 AM 12/19/2024 6:30 PM * Full Code Date Activated Date Inactivated Comments 11/18/2022 11:43 AM 11/18/2022 5:30 PM Care Teams Epic Willow Analyst Relationship Specialty Start Date End Date Nancy Alvares NP [address] [place] [address] PCP - General Nurse Practitioner 10/08/21
--- OUTSIDE RECORDS SUMMARY | 2025-01-18 16:28 | XMS_ITS | Encounter Summary ---
Author Organization [facility] Address [address] [place] [address] Phone Care Team Providers Care Helicopter Engineer Name Role Phone Kiran Garvey MD Primary Care Provider + [phone] Kiran Garvey MD Primary Care Provider + [phone] Lorena Taylor MD Primary Care Provider + [phone] Dante Olivarez Primary Care Provider [phone] Morro Doyle MD Primary Care Provider +[phone] Nancy Alvares NP Primary Care Provider + [phone] Encounter Details Date Type Department Care Team (Latest Contact Info) Description 02/10/2007 Orders Only [facility] Scanning, Provider Social History Tobacco Use Types Packs/Day Years Used Date Smoking Tobacco: Never Assessed Comments Unknown Sex and Gender Information Value Date Recorded Sex Assigned at Not on file Legal Sex Female 9:09 PM EMU FARM WORKER Gender Identity Not on file Sexual [...] on filedocumented in this encounter Care Teams Helicopter Engineer Relationship Specialty Start Date End Date Malench, Kiran E., MD [address] [place] [address] PCP - General 02/26/17 01/25/19 Kiran Garvey MD [address] [place] [address] PCP - General 03/21/15 02/25/17 Lorena Taylor MD [address] [place] [address] PCP - General Family Practice 01/26/19 03/31/21 Dante Olivarez PA [address] [facility] [address] [place] [address] PCP - General Physician Acid Cutter 04/01/21 06/09/21 Morro Doyle MD [address] [facility] 1 [place] [address] PCP - General Internal Medicine 06/10/21 10/07/21 Nancy Alvares MESSAGING ARCHITECT [address] [place] [address] PCP - General Nurse Practitioner 10/08/21 documented as of this encounter
--- OUTSIDE RECORDS SUMMARY | 2025-01-18 16:28 | XMS_ITS | Encounter Summary ---
Author Organization [facility] Address [address] [place] [address] Phone Care Team Providers Care Van Loader Name Role Phone Nancy Alvares NP Primary [...] on file Legal Sex Female 9:09 PM BRIM STRETCHING MACHINE OPERATOR Gender Identity Not on file [...] on filedocumented in this encounter Care Teams Van Loader Relationship Specialty Start Date End Date Nancy Alvares NP [address] [place] [address] PCP - General Nurse Practitioner 10/08/21 documented as of this encounter
--- OUTSIDE RECORDS SUMMARY | 2025-01-18 16:28 | XMS_ITS | Encounter Summary ---
Author Organization [facility] Address [address] [place] [address] Phone Care Team Providers Care Nanofabrication Specialist Name Role Phone Kiran Garvey MD Primary Care Provider + [phone] Kiran Garvey MD Primary Care Provider + [phone] Lorena Taylor MD Primary Care Provider + [phone] Dante Olivarez Primary Care Provider [phone] Morro Doyle MD Primary Care Provider [phone] Nancy Alvares NP Primary Care Provider + [phone] Encounter Details Date Type Department Care Team (Latest Contact Info) Description 04/13/2005 Orders Only [facility] Scanning, Provider Social History Tobacco Use Types Packs/Day Years Used Date Smoking Tobacco: Never Assessed Comments Unknown Sex and Gender Information Value Date Recorded Sex Assigned at Not on file Legal Sex Female 9:09 PM CUPOLA TAPPER Gender Identity Not on file Sexual Orientation [...] on filedocumented in this encounter Care Teams Nanofabrication Specialist Relationship Specialty Start Date End Date Malench, Kiran E., MD [address] [place] [address] PCP - General 02/26/17 01/25/19 Kiran Garvey MD [address] [place] [address] PCP - General 03/21/15 02/25/17 Lroena Taylor MD [address] [place] [address] PCP - General Family Practice 01/26/19 03/31/21 Dante Olivarez PA [address] [facility] 215 [place] [address] PCP - General Physician Managed Services Consultant 04/01/21 06/09/21 Morro Doyle MD [address] [facility] 1 [place] [address] PCP - General Internal Medicine 06/10/21 10/07/21 Nancy Alvares FULL TIME BABYSITTER [address] [place] [address] PCP - General Nurse Practitioner 10/08/21 documented as of this encounter
--- OUTSIDE RECORDS SUMMARY | 2025-01-18 16:28 | XMS_ITS | Encounter Summary ---
Author Organization [facility] Address [address] [place] [address] Phone Care Team Providers Care Seed Packer Name Role Phone Kiran Garvey MD Primary Care Provider + [phone] Kiran Garvey MD Primary Care Provider + [phone] Lorena Taylor MD Primary Care Provider + [phone] Dante Olivarez Primary Care Provider [phone] Morro Doyle MD Primary Care Provider [phone] Nancy Alvares NP Primary Care Provider + [phone] Encounter Details Date Type Department Care Team (Latest Contact Info) Description 11/23/2006 Orders Only [facility] Scanning, Provider Social History Tobacco Use Types Packs/Day Years Used Date Smoking Tobacco: Never Assessed Comments Unknown Sex and Gender Information Value Date Recorded Sex Assigned at Not on file Legal Sex Female 9:09 PM SILK 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 Gender Identity Not on file Sexual Orientation [...] on filedocumented in this encounter Care Teams Seed Packer Relationship Specialty Start Date End Date Malench, Kiran E., MD [address] [place] [address] PCP - General 02/26/17 01/25/19 Kiran Garvey MD [address] [place] [address] PCP - General 03/21/15 02/25/17 Lorena Taylor MD [address] [place] [address] PCP - General Family Practice 01/26/19 03/31/21 Dante Oilvarez PA [address] [facility] 215 [place] [address] PCP - General Physician Client Technical Professional 04/01/21 06/09/21 Morro Doyle MD [address] [facility] 1 [place] [address] PCP - General Internal Medicine 06/10/21 10/07/21 Nancy Alvares REPRESENTATIVE GOVERNMENT RELATIONS [address] [place] [address] PCP - General Nurse Practitioner 10/08/21 documented as of this encounter
--- OUTSIDE RECORDS SUMMARY | 2025-01-18 16:28 | XMS_ITS | Encounter Summary ---
Author Organization [facility] Address [address] [place] [address] Phone Care Team Providers Care Search Strategist Name Role Phone Kiran Garvey MD Primary Care Provider + [phone] Kiran Garvey MD Primary Care Provider + [phone] Lorena Taylor MD Primary Care Provider + [phone] Dante Olivarez Primary Care Provider [phone] Morro Doyle MD Primary Care Provider +[phone] Nancy Alvares NP Primary Care Provider + [phone] Encounter Details Date Type Department Care Team (Latest Contact Info) Description 10/26/2006 Orders Only [facility] Scanning, Provider Social History Tobacco Use Types Packs/Day Years Used Date Smoking Tobacco: Never Assessed Comments Unknown Sex and Gender Information Value Date Recorded Sex Assigned at Not on file Legal Sex Female 9: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 Gender Identity Not on file Sexual Orientation [...] on filedocumented in this encounter Care Teams Search Strategist Relationship Specialty Start Date End Date Malench, Kiran E., MD [address] [place] [address] PCP - General 02/26/17 01/25/19 Kiran Garvey MD [address] [place] [address] PCP - General 03/21/15 02/25/17 Lorena Taylor MD [address] [place] [address] PCP - General Family Practice 01/26/19 03/31/21 Dante Olivarez PA [address] [facility] [address] [place] [address] PCP - General Physician Technology Project Manager 04/01/21 06/09/21 Morro Doyle MD [address] [facility] 1 [place] [address] PCP - General Internal Medicine 06/10/21 10/07/21 Nancy Alvares ABLE BODIED SEAMAN [address] [place] [address] PCP - General Nurse Practitioner 10/08/21 documented as of this encounter
--- OUTSIDE RECORDS SUMMARY | 2025-01-18 16:28 | XMS_ITS | Encounter Summary ---
Author Organization [facility] Address [address] [place] [address] Phone Care Team Providers Care Drywall Professional Name Role Phone Kiran Garvey MD Primary Care Provider + [phone] Kiran Garvey MD Primary Care Provider + [phone] Lorena Taylor MD Primary Care Provider + [phone] Dante Olivarez Primary Care Provider [phone] Morro Doyle MD Primary Care Provider [phone] Nancy Alvares NP Primary Care Provider + [phone] Encounter Details Date Type Department Care Team (Latest Contact Info) Description 02/11/2004 Orders Only [facility] Scanning, Provider Social History Tobacco Use Types Packs/Day Years Used Date Smoking Tobacco: Never Assessed Comments Unknown Sex and Gender Information Value Date Recorded Sex Assigned at Not on file Legal Sex Female 9:09 PM SUCTION ROLLER Gender Identity Not on file Sexual Orientation [...] on filedocumented in this encounter Care Teams Drywall Professional Relationship Specialty Start Date End Date Malench, Kiran E., MD [address] [place] [address] PCP - General 02/26/17 01/25/19 Kiran Garvey MD [address] [place] [address] PCP - General 03/21/15 02/25/17 Lorena Taylor MD [address] [place] [address] PCP - General Family Practice 01/26/19 03/31/21 Dante Olivarez PA [address] [facility] [address] [place] [address] PCP - General Physician Gate Supervisor 04/01/21 06/09/21 Morro Doyle MD [address] [facility] 1 [place] [address] PCP - General Internal Medicine 06/10/21 10/07/21 Nancy Alvares SOFTWARE QUALITY AUTOMATION ENGINEER [address] [place] [address] PCP - General Nurse Practitioner 10/08/21 documented as of this encounter
--- OUTSIDE RECORDS SUMMARY | 2025-01-18 16:28 | XMS_ITS | Encounter Summary ---
Author Organization [facility] Address [address] [place] [address] Phone Care Team Providers Care Solar Thermal Technician Name Role Phone Kiran Garvey MD Primary Care Provider + [phone] Kiran Garvey MD Primary Care Provider + [phone] Lorena Taylor MD Primary Care Provider + [phone] Dante Olivarez Primary Care Provider [phone] Morro Doyle MD Primary Care Provider [phone] Nancy Alvares NP Primary Care Provider + [phone] Encounter Details Date Type Department Care Team (Latest Contact Info) Description 11/10/2006 Orders Only [facility] Scanning, Provider Social History Tobacco Use Types Packs/Day Years Used Date Smoking Tobacco: Never Assessed Comments Unknown Sex and Gender Information Value Date Recorded Sex Assigned at Not on file Legal Sex Female 9:09 PM NETWORK 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 Gender Identity Not on file Sexual Orientation [...] on filedocumented in this encounter Care Teams Solar Thermal Technician Relationship Specialty Start Date End Date Malench, Kiran E., MD [address] [place] [address] PCP - General 02/26/17 01/25/19 Kiran Garvey MD [address] [place] [address] PCP - General 03/21/15 02/25/17 Lorena Taylor MD [address] [place] [address] PCP - General Family Practice 01/26/19 03/31/21 Dante Olivarez PA [address] [facility] [address] [place] [address] PCP - General Physician Mobile Paramedical Examiner 04/01/21 06/09/21 Morro Doyle MD [address] [facility] 1 [place] [address] PCP - General Internal Medicine 06/10/21 10/07/21 Nancy Alvares POWER EQUIPMENT MECHANICS INSTRUCTOR [address] [place] [address] PCP - General Nurse Practitioner 10/08/21 documented as of this encounter
--- OUTSIDE RECORDS SUMMARY | 2025-01-18 16:28 | XMS_ITS | Clinical Summary ---
Author Organization [facility] Address [address] [facility] [place] [address] Care Team Providers Care Forest Worker Name Role Phone Unavailable Primary Care Provider Unavailabl e Source Comments [facility],non-owned Affiliates and Associated Physician Practices is amultiple site organization consisting of ambulatory clinics and hospital sitesin [place], [place], [place] and [place]. This disclosure is being madepursuant to the Care Everywhere program and may not contain all information available regarding this patient. Last updated 18.[facility] Social History Tobacco Use Types Packs/Day Years [...]
--- OUTSIDE RECORDS SUMMARY | 2025-01-18 16:28 | XMS_ITS | Clinical Summary ---
Author Organization [facility] [address] Address [address] [place] [address] Care Team Providers Care Insurance Counselor Name Role Phone Nancy Alvares NP Primary Care Provider [phone] Allergies No known active allergies Medications losartan [...] (11/16/2022): Added automatically from request for surgery [id number] Family history of malignant neoplasm of gastrointestinal tract 11/16/2022 Overview (11/16/2022): Added automatically from request for surgery [id number] Parkinson disease 06/10/2021 Assessment & Plan (11/18/2021 4:42 PM ADHESIVE BONDING MACHINE OPERATOR): Patient continues at this time on pramipexole [...] Type Department Care Team Description 12/22/2024 Telephone [facility] Gastroenterology [address] [facility] [address] [place] [address] Ayanna Venegas, DEVIN GI path results 12/19/2024 8:43 AM ADHESIVE BONDING MACHINE OPERATOR Anesthesia Event [facility] [address] [place] [address] Grupo Orozco MD Boyle, Christine Michelle, STEFANO 12/19/2024 8:30 AM ADHESIVE BONDING MACHINE OPERATOR - 12/19/2024 9:00 AM ADHESIVE BONDING MACHINE OPERATOR Surgery [facility] [address] [place] [address] Catrachito Link MD COLON BIOPSY 12/19/2024 7:11 AM ADHESIVE BONDING MACHINE OPERATOR - 12/19/2024 10:15 AM ADHESIVE BONDING MACHINE OPERATOR Hospital Encounter [facility] [address] [address] [place], [place] [address] Catrachito Link MD Epigastric pain; Abdominal pain Discharge Disposition: Discharge to home or self care 12/04/2024 Telephone [facility] Gastroenterology [facility] [facility] Medical Office [address] [place] [address] Bailey Merrill, DEVIN Reschedule 10/23/2024 3:00 PM ADHESIVE BONDING MACHINE OPERATOR Ancillary Procedure [facility] Vascular and Vein Surgery at [address] [place] [address] Left carotid bruit from Last [...] by TW Conv) Cancer Sister 1 Maryjane Godfrey Heart attack Sister 1 Maryjane Godfrey Myocardial infa rction; Depression Sister 2 Maryjane Fibromyalgia Sister 2 Maryjane Relation Name Status Comments Father Nikhil Maternal Grandmother Mother Joan Alive Mother's Sister Colon cancer Paternal Grandfather Hisea Paternal Grandmother Sister 1 Maryjane Godfrey Sister 2 Maryjane Alive Social History Tobacco [...] on file Legal Sex Female 9:09 PM ADHESIVE BONDING MACHINE OPERATOR Gender Identity Not on file Sexual Orientation Not on file Obstetrics History Last Filed Vital Signs Vital Sign Reading Time Taken Comments Blood Pressure 131/76 12/19/2024 9:40 AM ADHESIVE BONDING MACHINE OPERATOR Pulse 66 12/19/2024 9:40 AM ADHESIVE BONDING MACHINE OPERATOR Temperature 36.3 C (97.3 F) 12/19/2024 9:15 AM ADHESIVE BONDING MACHINE OPERATOR Respiratory Rate 20 12/19/2024 9:40 AM ADHESIVE BONDING MACHINE OPERATOR Oxygen Saturation 100% 12/19/2024 9:40 AM ADHESIVE BONDING MACHINE OPERATOR Inhaled Oxygen Concentration - - Weight 90.3 kg (199 lb) 12/19/2024 7:50 AM ADHESIVE BONDING MACHINE OPERATOR Height 167.6 cm (5' 6 ) 12/19/2024 7:50 AM ADHESIVE BONDING MACHINE OPERATOR Body Mass Index 32.12 12/19/2024 7:50 AM ADHESIVE BONDING MACHINE OPERATOR Plan of Treatment Scheduled Procedures Name Priority [...] Associated Diagnosis Comments COLONOSCOPY 12/19/2024 8:53 AM ADHESIVE BONDING MACHINE OPERATOR SURGICAL PATHOLOGY Routine 12/19/2024 8:51 AM ADHESIVE BONDING MACHINE OPERATOR Epigastric pain Abdominal pain ESOPHAGOGASTRODUODENOSCOPY BIOPSY 12/19/2024 8:43 AM ADHESIVE BONDING MACHINE OPERATOR Epigastric pain Abdominal pain COLON BIOPSY 12/19/2024 8:43 AM ADHESIVE BONDING MACHINE OPERATOR Epigastric pain Abdominal pain EGD 12/19/2024 8:41 AM ADHESIVE BONDING MACHINE OPERATOR US CAROTIDS DUPLEX BILATERAL Schedule Routine, Read Routine (OP Routine) 10/23/2024 3:28 PM ADHESIVE BONDING MACHINE OPERATOR Left carotid bruit from Last 3 Months Results * Colonoscopy (12/19/2024 8:53 AM ADHESIVE BONDING MACHINE OPERATOR) Anatomical Region Laterality Modality Other Narrative Procedure Note Catrachito Link MD - 12/19/2024 8:53 AM CST ENDOSCOPY LAB Patient Name: Bijal Douglas Procedure Date: 12/19/2024 8:53 AM Date of : 1965 Admit Type: Outpatient Age: 59 Gender: Female Attending MD: Catrachito Link M.D. Room: [facility] ENDOSCOPY ROOM 04 Note Status: Finalized [...] The scope was passed under direct vision.The [id number] was introduced through the anusand advanced to [...] Final * Surgical pathology (12/19/2024 8:51 AM ADHESIVE BONDING MACHINE OPERATOR) Tissue (Gastric/Stomach biopsy) 12/19/2024 8:51 AM ADHESIVE BONDING MACHINE OPERATOR Tissue (Polyp(s), colon/colorectal, esophageal, gastric) 12/19/2024 9:04 AM ADHESIVE BONDING MACHINE OPERATOR Narrative PATHOLOGY [facility] - 12/21/2024 1:46 PM ADHESIVE BONDING MACHINE OPERATOR EPIC results best viewed via link to PDF [facility] [place] [address] Note to Patients: This report may contain [...] Gender: F : 1965 (Age: 59) Address: [address] [place] [id number] Hospital #: [id number] Taken:12/19/2024 Received:12/19/2024 Reported: 12/21/2024 Patient Type: [facility] EP SAME Client [facility] Service: Gastro Location: Physician(s): Homer Hicks FNP Diagnosis: A. Stomach, random biopsy: - Antral mucosa with reactive epithelial changes. - No Helicobacter pylori is seen. B. Colon, polyps, polypectomy: - Polypoid colonic mucosa with lymphoid aggregate and reactive epithelial changes. [facility]/12/20/2024 13:00 By this signature, I attest [...] interpretation for this case was performed at [facility], Department of Surgical Pathology, [address] [facility] [place] [place] [id number], [place] [address] CLIA # [id number] The performance characteristics of some immunohistochemical stains, fluorescence in-situ hybridization tests and immunophenotyping by flow cytometry cited in this report (if any) were determined by the Surgical Pathology and Flow Cytometry Departments at [facility] as part of an ongoing quality rn program and in compliance with federally mandated [...] Surgical Pathology and Flow Cytometry Departments of [facility]. It has not been cleared or approved by the U. S. Food and Drug Administration. IMAGES AND SCANNED DOCUMENTS, IF INCLUDED, ONLY VIEWABLE IN PDF VERSION OF REPORT us Catrachito Link MD LAB PATHOLOGY ORDERABLES F inal Result PATHOLOGY [facility] [phone] * EGD (12/19/2024 8:41 AM ADHESIVE BONDING MACHINE OPERATOR) Anatomical Region Laterality Modality Other Narrative Procedure Note Catrachito Link MD - 12/19/2024 8:41 AM CST ENDOSCOPY LAB Patient Name: Bijal Doulgas Procedure Date: 12/19/2024 8:41 AM Date of : 1965 Admit Type: Outpatient Age: 59 Gender: Female Attending MD: Catrachito Link M.D. Room: [facility] ENDOSCOPY ROOM 04 Note Status: Finalized [...] and oxygen saturations were monitored continuously. The [id number] was introduced through the mouth,and advanced to [...] US Carotids Duplex Bilateral (10/23/2024 3:28 PM ADHESIVE BONDING MACHINE OPERATOR) Anatomical Region Laterality Modality Vascular Bilateral Ultrasound 10/23/2024 3:05 PM ADHESIVE BONDING MACHINE OPERATOR Narrative 10/24/2024 1:20 PM ADHESIVE BONDING MACHINE OPERATOR Vascular & Vein Surgery [facility][note 3] [place] [address] Carotid Duplex Ultrasound Report Patient Name: BIJAL DOUGLAS L : 1965 (59y 1m) Study Date: 10/23/2024 3:05:08 PM Gender: F Industrial Pharmacist: MAURICE Location: [facility] Ref Provider: GILBERT CAMPOVERDE Quality: Adequate Order [...] above. Electronically Signed By: Agustin Blank MD [facility] 2024-10-24 13:19:18 ADHESIVE BONDING MACHINE OPERATOR Procedure Note Agustin Blank MD - 10/24/2024 Vascular & Vein Surgery [address] [facility] [place] [address] Carotid Duplex Ultrasound Report Patient Name: BIJAL DOUGLAS L : 1965 (59y 1m) Study Date: 10/23/2024 3:05:08 PM Gender: F Industrial Pharmacist: Location: [facility] Ref Provider: GILBERT CAMPOVERDE Quality: [...] above. Electronically Signed By: Agustin Blank MD [facility] 2024-10-24 13:19:18 ADHESIVE BONDING MACHINE OPERATOR us Gilbert Campoverde MD IMG US PROCEDURES Final R esult from Last 3 Months Insurance [facility] [place] Advance Directives For more information, please contact: [phone] * Full Code (Latest Code Status on File) Date Activated Date Inactivated Comments 12/19/2024 7:45 AM 12/19/2024 6:30 PM * Full Code Date Activated Date Inactivated Comments 11/18/2022 11:43 AM 11/18/2022 5:30 PM Care Teams Insurance Counselor Relationship Specialty Start Date End Date Nancy Alvares NP [address] [place] [address] PCP - General Nurse Practitioner 10/08/21
--- OUTSIDE RECORDS SUMMARY | 2025-01-18 16:28 | XMS_ITS | Encounter Summary ---
Author Organization [facility] Address [address] [place] [address] Phone Care Team Providers Care Complementary Health Therapists Name Role Phone Kiran Garvey MD Primary Care Provider + [phone] Kiran Garvey MD Primary Care Provider + [phone] Lorena Taylor MD Primary Care Provider + [phone] Dante Olivarez Primary Care Provider [phone] Morro Doyle MD Primary Care Provider [phone] Nancy Alvares NP Primary Care Provider + [phone] Encounter Details Date Type Department Care Team (Latest Contact Info) Description 09/27/2009 Orders Only [facility] Scanning, Provider Social History Tobacco Use Types Packs/Day Years Used Date Smoking Tobacco: Never Assessed Comments Unknown Sex and Gender Information Value Date Recorded Sex Assigned at Not on file Legal Sex Female 9:09 PM GEOSCIENCE TECHNICIAN Gender Identity Not on file Sexual Orientation [...] on filedocumented in this encounter Care Teams Complementary Health Therapists Relationship Specialty Start Date End Date Malench, Kiran E., MD [address] [place] [address] PCP - General 02/26/17 01/25/19 Kiran Garvey MD [address] [place] [address] PCP - General 03/21/15 02/25/17 Lorena Taylor MD [address] [place] [address] PCP - General Family Practice 01/26/19 03/31/21 Dante Olivarez PA [address] [facility] [address] [place] [address] PCP - General Physician Scoop Machine Operator 04/01/21 06/09/21 Morro Doyle MD [address] [facility] 1 [place] [address] PCP - General Internal Medicine 06/10/21 10/07/21 Nancy Alvares PATTERN RULER [address] [place] [address] PCP - General Nurse Practitioner 10/08/21 documented as of this encounter
--- OUTSIDE RECORDS SUMMARY | 2025-01-18 16:28 | XMS_ITS | Patient Health Summary ---
Author Organization [facility] Address [address] [place] [address] Care Team Providers Care Presales Consultant Name Role Phone Unavailable Primary Care Provider Unavailabl e Note from [facility],non-owned Affiliates and Associated Physician Practices is amultiple site organization consisting of ambulatory clinics and hospital sitesin [place], [place], [place] and [place]. This disclosure is being madepursuant to the Care Everywhere program and may not contain all information available regarding this patient. Last updated 18.[facility] Social History Tobacco Use Types Packs/Day Years Used Date Smoking Tobacco: Never Assessed Sex and Gender Information Value Date Recorded Sex Assigned at Not on file Gender Identity Not on file Sexual Orientation Not on file Procedures * DERMATOPATHOLOGY(Performed 10/12/2024) Results * DERMATOPATHOLOGY (10/12/2024 2:07 PM COMPUTER EDUCATION PROFESSOR) Case Report Dermatopathology Report Case: [id number] Authorizing Provider: Bharati Jason DO Collected: 10/12/2024 02:07 PM Ordering Location: [facility] - Received: 10/13/2024 11:00 AM DermPath Lab Pathologist: Kerry Garcia MD Specimen: Skin, left medial cheek 12:27 PM COMPUTER EDUCATION PROFESSOR DERMATOPATHOLOGY LABORATORY Final Diagnosis Specimen A. SKIN, left medial cheek: ACTINIC KERATOSIS (L57.0) 4 12:27 PM COMPUTER EDUCATION PROFESSOR DERMATOPATHOLOGY LABORATORY Clinical History R/O BCC 4 12:27 PM COMPUTER EDUCATION PROFESSOR DERMATOPATHOLOGY LABORATORY Gross Description Specimen A: Received is one formalin filled container labeled with the patient's name and designated left medial cheek. The specimen consists of a shave biopsy measuring 4x2x1 mm. Jar 0. 4 12:27 PM [facility] DERMATOPATHOLOGY LABORATORY Microscopic Description Specimen A. SKIN, left medial cheek: There is focal parakeratosis. The lower half of the epidermis shows disorderly maturation of keratinocytes with nuclear pleomorphism. 4 12:27 PM [facility] DERMATOPATHOLOGY LABORATORY Disclaimer An external and internal positive and negative controls are appropriate for the histochemical, immunohistochemical and immunofluorescence stain(s) in this case (if any), except where stated explicitly. The performance characteristics of the stain(s) cited in this report were developed and its performance characteristic determined by the Dermatopathology Laboratory at [facility], directed by Dr. Pebbles Leavitt. These tests need not be, and therefore are not, approved by the [place] Food and Drug Administration. The tests are used for clinical purposes. Billing Codes Specimen Charges Stain Charges 49641 1 4 12:27 PM [facility] DERMATOPATHOLOGY LABORATORY Embedded Images 4 12:27 PM [facility] DERMATOPATHOLOGY LABORATORY Pathology/Cytolo gy TISSUE SPECIMEN FROM SKIN / Unknown 10/12/2024 2:07 PM COMPUTER EDUCATION PROFESSOR 10/13/2024 11:00 AM COMPUTER EDUCATION PROFESSOR Bharati Jason DO LAB - PATHOLOGY/C YTOLOGY ORDERABLES Performing Organization Address City/State/[facility] Co de Phone Number DERMATOPATHOLOGY LABORATORY [facility] - Department of Dermatology [address], [address] [phone]
--- OUTSIDE RECORDS SUMMARY | 2025-01-18 16:29 | XMS_ITS | Encounter Summary ---
Author Organization [facility] Address [address] [place] [address] Care Team Providers Care Casing Inspector Name Role Phone Nancy Alvares Primary Care Provider [phone] Encounter Details Date Type Department Care Team (Late st Contact Info) Description 07/13/2022 MyChart Message Enc [facility] Medical Group Family & Internal Medicine [facility] [address] [place] [address] Nancy Alvares FNP [address] [place], [place] [phone] Lorazepam Social History Tobacco Use Types Packs/Day [...] CDT Gender Identity Female 12/23/2021 9:01 AM CASEWORKER Sexual Orientation Straight 12/23/2021 9: 01 AM CASEWORKER documented as of this encounter Progress Notes * Kiley Jimenes MA - 07/13/2022 5:14 PM CDTFrom: Bijal Kyle To: Nancy Alvares Sent: 07/13/2022 12:13 PM CDT Subject: Lorazepam I had [facility] submit for my refill on my Lorazapam 0.5 MG that I take one every 8 hours and have always received 90 tablets for the month. I went to pick up man my refill on July 10 and it [...] documented as of this encounter Care Teams Casing Inspector Relationship Specialty Start Date End Date Nancy Alvares FNP [address] [place] [address] PCP - General Nurse Practitioner Family 09/12/21 documented as of this encounter
--- OUTSIDE RECORDS SUMMARY | 2025-01-18 16:29 | XMS_ITS | Encounter Summary ---
Author Organization [facility] Address [address] [place] [address] Care Team Providers Care Crawler Crane Operator Name Role Phone Nancy Alvares Primary Care Provider [phone] Encounter Details Date Type Department Care Team (Late st Contact Info) Description 09/20/2024 Digitick Message Enc [facility] Medical Group Family & Internal Medicine [address] [phone] [place], [facility] Provider XR results Social History Tobacco Use [...] CDT Gender Identity Female 12/23/2021 9:01 AM PHOTOCOMPOSITION KEYBOARD OPERATOR Sexual Orientation Straight 12/23/2021 9: 01 AM PHOTOCOMPOSITION KEYBOARD OPERATOR documented as of this encounter Plan of Treatment Not on file documented as of this encounter Visit Diagnoses Not on filedocumented in this encounter Additional Health Concerns Assessment Noted Time PHQ-9 Depression Total Score: 21 023 4:28 PM PHOTOCOMPOSITION KEYBOARD OPERATOR documented as of this encounter Care Teams Crawler Crane Operator Relationship Specialty Start Date End Date Nanyc Alvares FNP [address] [place] [address] PCP - General Nurse Practitioner Family 09/12/21 documented as of this encounter
--- OUTSIDE RECORDS SUMMARY | 2025-01-18 16:29 | XMS_ITS | Encounter Summary ---
Author Organization [facility] Address [address] [place] [address] Care Team Providers Care E Commerce Analyst Name Role Phone Nancy Alvares Primary Care Provider [phone] Encounter Details Date Type Department Care Team (Late st Contact Info) Description 11/09/2022 MyChart Message Enc [facility] Medical Group Family & Internal Medicine [facility] [address] [place] [address] Nancy Alvares FNP [address] [place], [place] [phone] Bladder infection Social History Tobacco Use Types [...] CDT Gender Identity Female 12/23/2021 9:01 AM WRESTLING COACH Sexual Orientation Straight 12/23/2021 9: 01 AM WRESTLING COACH documented as of this encounter Plan of Treatment Not on file documented as of this encounter Visit Diagnoses Not on filedocumented in this encounter Additional Health Concerns Assessment Noted Time PHQ-9 Depression Total Score: 12 021 12:38 PM CDT documented as of this encounter Care Teams E Commerce Analyst Relationship Specialty Start Date End Date Nancy Alvares FNP [address] [place] [address] PCP - General Nurse Practitioner Family 09/12/21 documented as of this encounter
--- OUTSIDE RECORDS SUMMARY | 2025-01-18 16:29 | XMS_ITS | Encounter Summary ---
Author Organization [facility] Address [address] [place] [address] Phone Care Team Providers Care Composing Room Supervisor Name Role Phone Morro Doyle MD Primary Care Provider [phone] Nancy Alvares NP Primary Care Provider [phone] Encounter Details Date Type Department Care Team [...] on file Legal Sex Female 9:09 PM PACKAGE LINE OPERATOR Gender Identity Not on file Sexual [...] on filedocumented in this encounter Care Teams Composing Room Supervisor Relationship Specialty Start Date End Date Morro Doyle MD [address] [place], [place] [id number] PCP - General Internal Medicine 06/10/21 10/07/21 Nancy Alvares NP [address] [place] [address] PCP - General Nurse Practitioner 10/08/21 documented as of this encounter
--- OUTSIDE RECORDS SUMMARY | 2025-01-18 16:29 | XMS_ITS | Encounter Summary ---
Author Organization [facility] Address [address] [place] [address] Care Team Providers Care Telecasting Engineer Name Role Phone Unavailable Primary Care Provider Unavailabl e Encounter Details Date Type Department Care Team (Late st Contact Info) Description 10/12/2024 Lab Requisition [facility] - DermPath Lab [address], [place] [address] Bharati Jason DO [address] [facility] 3L [place] [address] Social History Tobacco Use Types Packs/Day Years [...] Diagnosis Comments DERMATOPATHOLOGY Routine 10/12/2024 2:07 PM ASSEMBLER FOR PULLER OVER HAND documented in this encounter Results * DERMATOPATHOLOGY (10/12/2024 2:07 PM ASSEMBLER FOR PULLER OVER HAND) Case Report Dermatopathology Report Case: [id number] Authorizing Provider: Bharati Jason DO Collected: 10/12/2024 02:07 PM Ordering Location: [facility] - Received: 10/13/2024 11:00 AM DermPath Lab Pathologist: Kerry Garcia MD Specimen: Skin, left medial cheek 4 12:27 PM ASSEMBLER FOR PULLER OVER HAND DERMATOPATHOLOGY LABORATORY Final Diagnosis Specimen A. SKIN, left medial cheek: ACTINIC KERATOSIS (L57.0) 4 12:27 PM ASSEMBLER FOR PULLER OVER HAND DERMATOPATHOLOGY LABORATORY Clinical History R/O BCC 12:27 PM [facility] DERMATOPATHOLOGY LABORATORY Gross Description Specimen A: Received is one formalin filled container labeled with the patient's name and designated left medial cheek. The specimen consists of a shave biopsy measuring 4x2x1 mm. Jar 0. 12:27 PM [facility] DERMATOPATHOLOGY LABORATORY Microscopic Description Specimen A. SKIN, left medial cheek: There is focal parakeratosis. The lower half of the epidermis shows disorderly maturation of keratinocytes with nuclear pleomorphism. 12:27 PM [facility] DERMATOPATHOLOGY LABORATORY Disclaimer An external and internal positive and negative controls are appropriate for the histochemical, immunohistochemical and immunofluorescence stain(s) in this case (if any), except where stated explicitly. The performance characteristics of the stain(s) cited in this report were developed and its performance characteristic determined by the Dermatopathology Laboratory at [facility], directed by Dr. Pebbles Leavitt. These tests need not be, and therefore are not, approved by the [place] Food and Drug Administration. The tests are used for clinical purposes. Billing Codes Specimen Charges Stain Charges 24354 1 12:27 PM [facility] DERMATOPATHOLOGY LABORATORY Embedded Images 12:27 PM [facility] DERMATOPATHOLOGY LABORATORY Pathology/Cytolo gy TISSUE SPECIMEN FROM SKIN / Unknown 10/12/2024 2:07 PM ASSEMBLER FOR PULLER OVER HAND 10/13/2024 11:00 AM ASSEMBLER FOR PULLER OVER HAND Bharati Jason DO LAB - PATHOLOGY/C YTOLOGY ORDERABLES DERMATOPATHOLOGY LABORATORY [facility] - Department of Dermatology [address] [phone] documented in this encounter Visit Diagnoses Not on filedocumented in this encounter
--- OUTSIDE RECORDS SUMMARY | 2025-01-18 16:29 | XMS_ITS | Encounter Summary ---
Author Organization [facility] Address [address] [place] [address] Care Team Providers Care Teletypewriter Operator Name Role Phone Nancy Alvares Primary Care Provider Encounter Details Date Type Department Care Team (Late st Contact Info) Description 03/16/2022 MyChart Message Enc [facility] Medical Group Family & Internal Medicine [facility] [address] [place] [address] Nancy Alvares FNP [address] [place], [place] [phone] Left knee severe pain Social History Tobacco [...] CDT Gender Identity Female 12/23/2021 9:01 AM HOSPITAL CHIEF FINANCIAL OFFICER Sexual Orientation Straight 12/23/2021 9: 01 AM HOSPITAL CHIEF FINANCIAL OFFICER COVID-19 Exposure Response Date Recorded In the [...] documented as of this encounter Care Teams Teletypewriter Operator Relationship Specialty Start Date End Date Nancy Alvares FNP [address] [place] [address] PCP - General Nurse Practitioner Family 09/12/21 documented as of this encounter
--- OUTSIDE RECORDS SUMMARY | 2025-01-18 16:29 | XMS_ITS | Continuity of Care Document ---
Author Organization [facility] Address [address] [place] [address] [address] [place] [address] Phone Care Team Providers Care Pie Dough Roller Name Role Phone Jin OD, Toby Unavailable Unavailable Procedures Procedure Date Office/outpatient Visit, [facility] Advance Directives Directive Yes / No Effective Date File Name No Information Encounters Encounter Description Practice Location Reason(s) For Visit Diagnoses Date Provider Providers Copied on Encounter Office/outpat ient Visit, [facility], [address], [place], [place], [id number], [place] tel:[phone] [facility] No Information 2-201 0 Jin OD Toby. [address] , [address], [place], [address], [place]. tel:[phone] Family History Family Member Type Diagnosis Age At Onset No Information Payers Payer name Insurance type Covered libertarian ID Authoriza tion(s) No Information Social History [...]
--- OUTSIDE RECORDS SUMMARY | 2025-01-18 16:29 | XMS_ITS | Encounter Summary ---
Author Organization [facility] Address [address] [place] [address] Care Team Providers Care Brancher Name Role Phone Nancy Alvares Primary Care Provider [phone] Encounter Details Date Type Department Care Team (Late st Contact Info) Description 11/26/2023 MyChart Message Enc [facility] Medical Group Family & Internal Medicine [facility] [address] [place] [phone] Nancy Alvares FNP [facility] [place], [place] [phone] Coughing Social History Tobacco Use Types Packs/Day [...] CDT Gender Identity Female 12/23/2021 9:01 AM STUDENT SERVICES VICE PRESIDENT Sexual Orientation Straight 12/23/2021 9: 01 AM STUDENT SERVICES VICE PRESIDENT documented as of this encounter Progress Notes * KIANNA Denis - 11/26/2023 2:28 PM CST I will send it out but yes test for covid ENT SERVICES VICE PRESIDENT documented in this encounter Plan of Treatment Not on file documented as of this encounter Visit Diagnoses Not on filedocumented in this encounter Additional Health Concerns Assessment Noted Time PHQ-9 Depression Total Score: 21 023 4:28 PM STUDENT SERVICES VICE PRESIDENT documented as of this encounter Care Teams Brancher Relationship Specialty Start Date End Date Nancy Alvares FNP [address] [place] [address] PCP - General Nurse Practitioner Family 09/12/21 documented as of this encounter
--- OUTSIDE RECORDS SUMMARY | 2025-01-18 16:29 | XMS_ITS | Encounter Summary ---
Author Organization [facility] Address [address] [place] [address] Care Team Providers Care Manpower Development Specialist Name Role Phone Nancy Alvares Primary Care Provider [phone] Encounter Details Date Type Department Care Team (Late st Contact Info) Description 12/24/2021 Nexidia Message Enc [facility] Medical Group Family & Internal Medicine [address] [phone] [facility], [facility] Provider Appointment Reschedule Social History Tobacco Use [...] CDT Gender Identity Female 12/23/2021 9:01 AM FRAME CATCHER Sexual Orientation Straight 12/23/2021 9: 01 AM FRAME CATCHER documented as of this encounter Plan of Treatment Not on file documented as of this encounter Visit Diagnoses Not on filedocumented in this encounter Additional Health Concerns Infection Onset Date Last Indicated Resolved Time COVID-19 Confirmed 12/12/2021 12/12/2021 12:34 AM FRAME CATCHER Assessment Noted Time PHQ-9 Depression Total Score: 12 021 12:38 PM CDT documented as of this encounter Care Teams Manpower Development Specialist Relationship Specialty Start Date End Date Nancy Alvares FNP [address] [place] [address] PCP - General Nurse Practitioner Family 09/12/21 documented as of this encounter
--- OUTSIDE RECORDS SUMMARY | 2025-01-18 16:29 | XMS_ITS | Encounter Summary ---
Author Organization [facility] Address [address] [place] [address] Phone Care Team Providers Care Ambulatory Care Nurse Name Role Phone Morro Doyle MD Primary Care Provider [phone] Nancy Alvares NP Primary Care Provider [phone] Encounter Details Date Type Department Care Team [...] on file Legal Sex Female 9:09 PM ADJUNCT SPANISH INSTRUCTOR Gender Identity Not on file Sexual Orientation [...] on filedocumented in this encounter Care Teams Ambulatory Care Nurse Relationship Specialty Start Date End Date Morro Doyle MD [address] [place] [id number] PCP - General Internal Medicine 06/10/21 10/07/21 Nancy Alvares NP [address] [place] [address] PCP - General Nurse Practitioner 10/08/21 documented as of this encounter
--- OUTSIDE RECORDS SUMMARY | 2025-01-18 16:29 | XMS_ITS | Encounter Summary ---
Author Organization [facility] Address [address] [place] [address] Care Team Providers Care Bone Glue Maker Name Role Phone Nancy Alvares Primary Care Provider Encounter Details Date Type Department Care Team (Late st Contact Info) Description 08/13/2023 MyChart Message Enc [facility] Medical Group Family & Internal Medicine [facility] [address] [place] [address] Nancy Alvares FNP [facility] [place], [place] [phone] Sick Social History Tobacco Use Types Packs/Day [...] CDT Gender Identity Female 12/23/2021 9:01 AM CUP MACHINE OPERATOR Sexual Orientation Straight 12/23/2021 9: 01 AM CUP MACHINE OPERATOR documented as of this encounter Progress Notes [...] documented as of this encounter Care Teams Bone Glue Maker Relationship Specialty Start Date End Date Nancy Alvares FNP [address] [place] [address] PCP - General Nurse Practitioner Family 09/12/21 documented as of this encounter
--- OUTSIDE RECORDS SUMMARY | 2025-01-18 16:29 | XMS_ITS | Encounter Summary ---
Author Organization [facility] Address [address] [place] [address] Phone Care Team Providers Care Yard Pilot Name Role Phone Kiran Garvey MD Primary Care Provider + [phone] Krian Garvey MD Primary Care Provider + [phone] Lorena Taylor MD Primary Care Provider + [phone] Dante Olivarez Primary Care Provider [phone] Morro Doyle MD Primary Care Provider [phone] Nancy Alvares NP Primary Care Provider + [phone] Encounter Details Date Type Department Care Team (Latest Contact Info) Description 03/19/2015 Orders Only [facility] Scanning, Provider Social History Tobacco Use Types Packs/Day Years Used Date Smoking Tobacco: Never Assessed Comments Unknown Sex and Gender Information Value Date Recorded Sex Assigned at Not on file Legal Sex Female 9:09 PM DIABETIC EDUCATOR Gender Identity Not on file Sexual Orientation [...] on filedocumented in this encounter Care Teams Yard Pilot Relationship Specialty Start Date End Date Kiran Garvey MD [address] [place] [address] PCP - General 02/26/17 01/25/19 Kiran Garvey MD [address] [place] [address] PCP - General 03/21/15 02/25/17 Lorena Taylor MD [address] [place] [address] PCP - General Family Practice 01/26/19 03/31/21 Dante Olivarez PA [address] [facility] [address] [place] [address] PCP - General Physician Sports Leadership Instructor 04/01/21 06/09/21 Morro Doyle MD [address] [facility] [address] [place] [address] PCP - General Internal Medicine 06/10/21 10/07/21 Nancy Alvares NP [address] [place] [address] PCP - General Nurse Practitioner 10/08/21 documented as of this encounter
--- OUTSIDE RECORDS SUMMARY | 2025-01-18 16:29 | XMS_ITS | Encounter Summary ---
Author Organization [facility] Address [address] [place] [address] Phone Care Team Providers Care Rides Attendant Name Role Phone Kiran Garvey MD Primary Care Provider + [phone] Kiran Garvey MD Primary Care Provider + [phone] Lorena Taylor MD Primary Care Provider + [phone] aDnte Olivarez Primary Care Provider [phone] Morro Doyle MD Primary Care Provider [phone] Nancy Alvares NP Primary Care Provider + [phone] Encounter Details Date Type Department Care Team (Latest Contact Info) Description 02/27/2015 Orders Only [facility] Scanning, Provider Social History Tobacco Use Types Packs/Day Years Used Date Smoking Tobacco: Never Assessed Comments Unknown Sex and Gender Information Value Date Recorded Sex Assigned at Not on file Legal Sex Female 9:09 PM AIRPLANE ELECTRICIAN Gender Identity Not on file Sexual Orientation [...] on filedocumented in this encounter Care Teams Rides Attendant Relationship Specialty Start Date End Date Malench, Kiran E., MD [address] [place] [address] PCP - General 02/26/17 01/25/19 Kiran Garvey MD [address] [place] [address] PCP - General 03/21/15 02/25/17 Lorena Taylor MD [address] [place] [address] PCP - General Family Practice 01/26/19 03/31/21 Dante Olivarez PA [address] [facility] [address] [place] [address] PCP - General Physician Sanitation Inspector 04/01/21 06/09/21 Morro Doyle MD [address] [facility] 1 [place] [address] PCP - General Internal Medicine 06/10/21 10/07/21 Nancy Alvares PRINTING SUPPLIES SALES REPRESENTATIVE [address] [place] [address] PCP - General Nurse Practitioner 10/08/21 documented as of this encounter
--- OUTSIDE RECORDS SUMMARY | 2025-01-18 16:29 | XMS_ITS | Encounter Summary ---
Author Organization [facility] Address [address] [place] [address] Care Team Providers Care Fixture Repairer Fabricator Name Role Phone Nancy Alvares Primary Care Provider [phone] Encounter Details Date Type Department Care Team (Late st Contact Info) Description 07/08/2023 Mementot Message Enc [facility] Medical Group Family & Internal Medicine [facility] [address] [place] [phone] Nancy Alvares FNP [address] [place], [place] [phone] Copy of updated insurance card Social History [...] CDT Gender Identity Female 12/23/2021 9:01 AM SCIENTIST IMMUNOLOGY Sexual Orientation Straight 12/23/2021 9: 01 AM SCIENTIST IMMUNOLOGY documented as of this encounter Plan of Treatment Not on file documented as of this encounter Visit Diagnoses Not on filedocumented in this encounter Additional Health Concerns Assessment Noted Time PHQ-9 Depression Total Score: 12 021 12:38 PM CDT documented as of this encounter Care Teams Fixture Repairer Fabricator Relationship Specialty Start Date End Date Nancy Alvares FNP [address] [place] [id number] PCP - General Nurse Practitioner Family 09/12/21 documented as of this encounter
--- OUTSIDE RECORDS SUMMARY | 2025-01-18 16:29 | XMS_ITS | Clinical Summary ---
Author Organization [facility] Address [facility] [place] [address] Care Team Providers Care Protective Officer Name Role Phone Nicole Holt KIANNA Primary Care Provider [phone] Allergies No known active allergies Medications Aspirin-Acetamino [...] (11/19/2022): Added automatically from request for surgery [id number] Family history of malignant neoplasm of gastrointestinal tract 11/16/2022 Overview (11/19/2022): Added automatically from request for surgery [id number] Folic acid deficiency 09/14/2022 History of Graves' [...] in adult 09/18/2021 Fibromyalgia 09/12/2021 Parkinson disease ([facility]) 06/10/2021 Overview (09/12/2021): Last Assessment & Plan: [...] 05/01/2015 Overview (09/12/2021): Mitral regurgitation Pulmonary hypertension ([facility]) 015 Overview (09/12/2021): Pulmonary hypertension Snoring 05/01/2015 Overview (09/12/2021): Snoring Anemia 02/16/2013 Resolved Problems Problem Noted Date Diagnosed Date Resolved Date Finger mass, left 09/04/2022 07/01/2023 Finger injury, right, sequela 09/18/2021 07/01/2023 Swelling of finger joint of right hand 09/18/2021 07/01/2023 SOB (shortness of breath) 04/08/2018 Encounters Date Type Department Care Team Description 12/29/2024 Telephone [facility] [address] [address] Nicole Holt, KIANNA Radiology Results 12/29/2024 Travel 12/26/2024 MyChart Message Enc [facility] [address] [address] Nicole Holt FNP Still sick 12/21/2024 MyChart Message Enc [facility] [address] [address] Nicole Holt FNP Sick 12/19/2024 Scan [facility] Scanned, [facility] Endoscopy (SCAN); Colonoscopy Report (SCAN); Pathology (SCAN) 12/05/2024 Orders Only [facility] [address] [address] Nicole Holt FNP 12/04/2024 MyChart Message Enc [facility] [address] [address] Nicole Holt FNP Sick 11/24/2024 Scan [facility] Scanned[facility] 11/23/2024 Telephone [facility] [address] [address] Nicole Holt FNP Orders 10/20/2024 Scan [facility] Scanned, [facility] Mammogram (SCAN) from Last 3 Months Immunizations Name Administration [...] CDT Gender Identity Female 12/23/2021 9:01 AM TEXTILE MACHINERY INSTRUCTOR Sexual Orientation Straight 12/23/2021 9: 01 AM TEXTILE MACHINERY INSTRUCTOR Last Filed Vital Signs Vital Sign Reading [...] 60-74 years 1-dose series) 2024 PHQ-2 (Physician [place]) 11/29/2024 03/17/2024 COVID-19 Vaccine ( - season) 2025 05/04/2022, 09/19/2021, 01/10/2021, Additional history [...] XR CHEST PA+LAT Routine 12/29/2024 11:09 AM TEXTILE MACHINERY INSTRUCTOR Chest tightness PATHOLOGY GENERIC (SCAN ORDER) 12/19/2024 [...] * XR CHEST PA+LAT (12/29/2024 11:09 AM TEXTILE MACHINERY INSTRUCTOR) Anatomical Region Laterality Modality Chest Radiographic Phuong ging 12/29/2024 11:2 5 AM TEXTILE MACHINERY INSTRUCTOR Impressions 12/29/2024 11:26 AM TEXTILE MACHINERY INSTRUCTOR IMPRESSION: No radiographic evidence of active chest disease. Ordered By: NICOLE HOTL Interpreted By: Thaddeus Palma MD, 12/29/2024 11:25 AM Narrative 12/29/2024 11:26 AM TEXTILE MACHINERY INSTRUCTOR [facility] [place] [address] Examination: XR CHEST PA+LAT Exam time: 12/29/2024 11:05 AM Clinical history: Cough. Congestion. Comparison: No prior exam Technique: Upright PA and lateral views Findings: Excellent and pulmonary vasculature are within normal limits. Lungs appear clear. No evidence of pleural effusion. No evidence of bronchial wall thickening or abnormal pulmonary interstitium. Procedure Note Thaddeus Palma MD - 12/29/2024 [facility] [place] [address] Examination: XR CHEST PA+LAT Exam time: 12/29/2024 [...] By: Thaddeus Palma MD, 12/29/2024 11:25 AM Nicole Holt [facility] Final Result * PATHOLOGY GENERIC (SCAN ORDER) (12/19/2024) Only the most recent of2 resultswithin the time period is included. 12/19/2024 [facility] Scanned SCANNING Final Resu lt * ENDOSCOPY (SCAN ORDER) (12/19/2024) 12/19/2024 [facility] Scanned SCANNING Final Resu lt * ENDOSCOPY (SCAN ORDER) (12/19/2024) 12/19/2024 [facility] Scanned SCANNING Final Resu lt * COLONOSCOPY GENERIC (SCAN ORDER) (12/19/2024) 12/19/2024 [facility] Scanned SCANNING Final Resu lt * COLONOSCOPY GENERIC (SCAN ORDER) (12/19/2024) 12/19/2024 [facility] Scanned SCANNING Final Resu lt * MAMMOGRAM GENERIC (SCAN ORDER) (10/20/2024) Anatomical Region Laterality Modality Other 10/20/2024 [facility] Scanned SCANNING Final Resu lt * HEPATITIS C AB ([facility] ONLY) (09/04/2022 9:42 AM CDT) HEPATITIS C AB NON-REACTI VE NON-REACT VAL[facility] 09/04/2022 6:29 PM CDT [facility] Comment: ANTIBODIES TO HCV NOT DETECTED. DOES NOT EXCLUDE THE POSSIBILITY OF EXPOSURE TO HCV. 09/04/2022 9:42 AM CDT [facility] Final Result [facility] [address] [place] [address], [id number] from Last 3 Months or Most Recently Relevant to Health Maintenance Insurance [facility] Care Teams Protective Officer Relationship Specialty Start Date End Date Nicole Holt FNP [address] [place] [address] PCP - General Nurse Practitioner Family 09/12/21
--- OUTSIDE RECORDS SUMMARY | 2025-01-18 16:29 | XMS_ITS | Encounter Summary ---
Author Organization [facility] Address [address] [place] [address] Phone Care Team Providers Care Preschool Principal Name Role Phone Lorena aTylor MD Primary Care Provider + [phone] Dante Olivarez Primary Care Provider [phone] Morro Doyle MD Primary Care Provider [phone] Nancy Alvares NP Primary Care Provider + [phone] Encounter Details Date Type Department Care Team [...] on file Legal Sex Female 9:09 PM CORNCOB PIPE MANUFACTURING SUPERVISOR Gender Identity Not on file Sexual Orientation [...] on filedocumented in this encounter Care Teams Preschool Principal Relationship Specialty Start Date End Date Lorena Taylor MD PCP - General Family Practice 01/26/19 03/31/21 Dante Olivarez, PA [address] [facility] [address] [place] [address] PCP - General Physician Data Recovery Planner 04/01/21 06/09/21 Morro Doyle MD [address] [facility] [address] [place] [address] PCP - General Internal Medicine 06/10/21 10/07/21 Nancy Alvares NP [facility] [place] [address] PCP - General Nurse Practitioner 10/08/21 documented as of this encounter
--- OUTSIDE RECORDS SUMMARY | 2025-01-18 16:29 | XMS_ITS | Encounter Summary ---
Author Organization [facility] Address [address] [place] [address] Care Team Providers Care Bowling Ball Assembler Name Role Phone Nancy Alvares Primary Care Provider [phone] Encounter Details Date Type Department Care Team (Late st Contact Info) Description 10/12/2024 MyChart Message Enc [facility] Medical Group Family & Internal Medicine [facility] [address] [place] [address] Nancy Alvares FNP [facility] [place], [place] [id number] EDG & Colonoscopy Referral Social History Tobacco [...] CDT Gender Identity Female 12/23/2021 9:01 AM AUDIT ANALYST Sexual Orientation Straight 12/23/2021 9: 01 AM AUDIT ANALYST documented as of this encounter Progress Notes * KIANNA Denis - 10/17/2024 3:33 PM CST Oh I thought she wanted a GI referral? T ANALYST * Lian Marrufo - 10/12/2024 12:41 PM CST Patient called back and wanted to speak to Nancy about this referral. Everyone is a lunch so I told her that someone will give her a call once the message has been read. T ANALYST documented in this encounter Plan of Treatment Not on file documented as of this encounter Visit Diagnoses Not on filedocumented in this encounter Additional Health Concerns Assessment Noted Time PHQ-9 Depression Total Score: 023 4:28 PM AUDIT ANALYST documented as of this encounter Care Teams Bowling Ball Assembler Relationship Specialty Start Date End Date Nancy Alvares FNP [address] [place] [address] PCP - General Nurse Practitioner Family 09/12/21 documented as of this encounter
--- OUTSIDE RECORDS SUMMARY | 2025-01-18 16:29 | XMS_ITS | Encounter Summary ---
Author Organization [facility] Address [address] [place] [address] Care Team Providers Care Manager Retail Name Role Phone Nancy Alvares Primary Care Provider [phone] Encounter Details Date Type Department Care Team (Late st Contact Info) Description 02/18/2022 MyChart Message Enc [facility] Medical Group Family & Internal Medicine [facility] [address] [place] [address] Nancy Alvares FNP [address] [place], [place] [phone] Bladder infection Social History Tobacco Use Types [...] CDT Gender Identity Female 12/23/2021 9:01 AM TANK CAR LOADER Sexual Orientation Straight 12/23/2021 9: 01 AM TANK CAR LOADER COVID-19 Exposure Response Date Recorded In the [...] documented as of this encounter Care Teams Manager Retail Relationship Specialty Start Date End Date Nancy Alvares FNP [address] [place] [address] PCP - General Nurse Practitioner Family 09/12/21 documented as of this encounter
--- OUTSIDE RECORDS SUMMARY | 2025-01-18 16:29 | XMS_ITS | Encounter Summary ---
Author Organization [facility] Address [address] [place] [address] Care Team Providers Care Leather Staker Name Role Phone Nancy Alvraes Primary Care Provider [phone] Encounter Details Date Type Department Care Team (Latest Contact Info) Description 09/22/2022 MyChart Message Enc [facility] Medical Group Family & Internal Medicine [facility] [address] [place] [address] Nancy Alvares FNP [address] [place], [place] [phone] Assistant Account Executive Referral Social History Tobacco Use Types Packs/Day [...] CDT Gender Identity Female 12/23/2021 9:01 AM AIR PUMPER Sexual Orientation Straight 12/23/2021 9: 01 AM AIR PUMPER COVID-19 Exposure Response Date Recorded In the [...] documented as of this encounter Care Teams Leather Staker Relationship Specialty Start Date End Date Nancy Alvares FNP [address] [place] [address] PCP - General Nurse Practitioner Family 09/12/21 documented as of this encounter
--- OUTSIDE RECORDS SUMMARY | 2025-01-18 16:29 | XMS_ITS | Encounter Summary ---
Author Organization [facility] Address [address] [place] [address] Care Team Providers Care Brush Loader And Handle Attacher Name Role Phone Nancy Alvares Primary Care Provider [phone] Encounter Details Date Type Department Care Team (Late st Contact Info) Description 03/16/2024 MyChart Message Enc [facility] Medical Group Family & Internal Medicine [facility] [address] [place] [phone] Nancy Alvares FNP [address] [place], [place] [phone] Rolled Ankle Social History Tobacco Use Types [...] CDT Gender Identity Female 12/23/2021 9:01 AM MARKET GARDEN WORKER Sexual Orientation Straight 12/23/2021 9: 01 AM MARKET GARDEN WORKER documented as of this encounter Progress Notes * Sammie Ricks RN - 03/17/2024 1:58 PM CDT Patient I going to go to walk in clinic in [place]. Opportunity given for all questions to be [...] Depression Total Score: 21 023 4:28 PM MARKET GARDEN WORKER documented as of this encounter Care Teams Brush Loader And Handle Attacher Relationship Specialty Start Date End Date Nancy Alvares FNP [address] [place] [address] PCP - General Nurse Practitioner Family 09/12/21 documented as of this encounter
--- OUTSIDE RECORDS SUMMARY | 2025-01-18 16:29 | XMS_ITS | Encounter Summary ---
Author Organization [facility] Address [address] [place] [address] Phone Care Team Providers Care Ems Helicopter Pilot Name Role Phone Kiran Garvey MD Primary Care Provider + [phone] Kiran Garvey MD Primary Care Provider + [phone] Lorena Taylor MD Primary Care Provider + [phone] Dante Olivarez Primary Care Provider [phone] Morro Doyle MD Primary Care Provider [phone] Nancy Alvares NP Primary Care Provider + [phone] Encounter Details Date Type Department Care Team (Latest Contact Info) Description 02/27/2011 Orders Only [facility] Scanning, Provider Social History Tobacco Use Types Packs/Day Years Used Date Smoking Tobacco: Never Assessed Comments Unknown Sex and Gender Information Value Date Recorded Sex Assigned at Not on file Legal Sex Female 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 Gender Identity Not on file Sexual Orientation [...] on filedocumented in this encounter Care Teams Ems Helicopter Pilot Relationship Specialty Start Date End Date Malench, Kiran E., MD [address] [place] [address] PCP - General 02/26/17 01/25/19 Kiran Garvey MD [address] [place] [address] PCP - General 03/21/15 02/25/17 Lorena Taylor MD [address] [place] [address] PCP - General Family Practice 01/26/19 03/31/21 Dante Olivarez PA [address] [facility] [address] [place] [address] PCP - General Physician Armament Repairer 04/01/21 06/09/21 Morro Doyle MD [address] [facility] [address] [place] [address] PCP - General Internal Medicine 06/10/21 10/07/21 Nancy Alvares LOCAL GOVERNMENT LEGISLATOR [address] [place] [address] PCP - General Nurse Practitioner 10/08/21 documented as of this encounter
== END 2025-01-18 16:23 | disposition home or self-care (01) ==
PROVIDERS: PCP Nurse Practitioner Family; Visit Provider Nurse Practitioner Family
DX: R05.9 Cough, unspecified (principal)
CPT/HCPCS: 71046

== ENCOUNTER 2025-02-21 16:30 | Outpatient (CLI) | payer BC, SELFPAY ==
[2025-02-21 16:55] LABS: Basophils Percent Auto 0.5 % (0.2-1.2); Eosinophils Absolute Auto 0.1 K/mm3 (0-0.3); Eosinophils Percent Auto 1.4 % (0-4.4); Hematocrit 40.7 % (37.0-47.0); Hemoglobin 13.5 g/dL (12.0-15.0); Immature Granulocyte Absolute 0.02 K/mm3 (0.00-0.031); Immature Granulocyte Percent A 0.3 % (0-0.5); Lymphocytes Absolute Auto 2.85 K/mm3 (0.9-3.2); Lymphocytes Percent Auto 37.5 % (18.3-44.2); Mean Corpuscular HGB Conc 33.2 g/dl (32-36); Mean Corpuscular Volume 90.4 fl (80-100); Mean Platelet Volume 9.8 fl (7.4-10.4); Monocytes Absolute Auto 0.6 K/mm3 (0.1-0.6); Monocytes Percent Auto 8.4 % (2.6-8.5); Neutrophils Percent Auto 51.9 % (45.5-73.1); Platelet Count Result 335 k/mm3 (150-375); Red Cell Distribution Width 12.8 % (11.5-14.5); White Blood Count 7.6 K/mm3 (4.5-10.0)
[2025-02-21 17:00] LABS: Add Urine Microscopic? YES; Appearance Urine Clear (Clear); Bacteria Urine None Seen /hpf; Bilirubin Urine Negative (Negative); Blood Urine Negative (Negative); Color Urine Yellow (Yellow); Glucose Urine UA Negative (Negative); Ketones Urine 2+ mg/dL (Negative); Leukocyte Esterase Ur 1+ LEU/UL (Negative); Nitrate Urine Negative (Negative); Non Pathogenic Casts 0-2; Protein Urine Negative (Negative); RBC Urine 0-2 /hpf (0-2); Specific Grav Ur 1.024 (1.001-1.035); Squamous Epithelial Cell Urine None Seen /hpf (Few)
[2025-02-21 17:07] LABS: Alanine Aminotransferase 28 U/L (6-35); Albumin Level 4.5 g/dL (3.5-5.1); Alkaline Phosphatase 86 U/L (38-126); Anion Gap 8 mmol/L (4-12); Aspartate Amino Transferase 35 U/L (14-36); Bilirubin,Total 0.9 mg/dL (0.2-1.3); Blood Urea Nitrogen 23 mg/dL (7-17); Calcium 9.7 mg/dL (8.4-10.2); Carbon Dioxide 34 mmol/L (22-30); Chloride 94 mmol/L (98-107); Estimated Glomerular Filt Rate > 60; Glucose 93 mg/dL (65-110); Magnesium 1.8 mg/dL (1.6-2.3); Potassium 3.6 mmol/L (3.4-5.0); Sodium 136 mmol/L (137-145)
--- OUTSIDE RECORDS SUMMARY | 2025-02-21 17:14 | XMS_ITS | Encounter Summary ---
Author Organization [facility] Address [address] [place] [address] Phone Care Team Providers Care Butter Fat Tester Name Role Phone Kiran Gavrey MD Primary Care Provider + [phone] Kiran Garvey MD Primary Care Provider + [phone] Lorena Taylor MD Primary Care Provider + [phone] Dante Olivarez Primary Care Provider [phone] Morro Doyle MD Primary Care Provider [phone] Nancy Alvares NP Primary Care Provider + [phone] Encounter Details Date Type Department Care Team (Latest Contact Info) Description 09/27/2009 Orders Only [facility] Scanning, Provider Social History Tobacco Use Types Packs/Day Years Used Date Smoking Tobacco: Never Assessed Comments Unknown Sex and Gender Information Value Date Recorded Sex Assigned at Not on file Legal Sex Female 9:09 PM PLANNER INTERNSHIP Gender Identity Not on file Sexual Orientation [...] on filedocumented in this encounter Care Teams Butter Fat Tester Relationship Specialty Start Date End Date Malench, Kiran E., MD [address] [place] [address] PCP - General 02/26/17 01/25/19 Kiran Garvey MD [address] [place] [address] PCP - General 03/21/15 02/25/17 Lorena Taylor MD [address] [place] [address] PCP - General Family Practice 01/26/19 03/31/21 Dante Olivarez PA [address] [place] [address] PCP - General Physician Asp Net Developer 04/01/21 06/09/21 Morro Doyle MD [address] [facility] [address] [place] [address] PCP - General Internal Medicine 06/10/21 10/07/21 Nancy Alvares NP [address] [place] [id number] PCP - General Nurse Practitioner 10/08/21 documented as of this encounter
--- OUTSIDE RECORDS SUMMARY | 2025-02-21 17:14 | XMS_ITS | Encounter Summary ---
Author Organization [facility] Address [address] [place] [address] Phone Care Team Providers Care Vortex Operator Name Role Phone Kiran Garvey MD Primary Care Provider + [phone] Kiran Garvey MD Primary Care Provider + [phone] Lorena Taylor MD Primary Care Provider + [phone] Dante Olivarez Primary Care Provider [phone] Morro Doyle MD Primary Care Provider [phone] Nancy Alvares NP Primary Care Provider + [phone] Encounter Details Date Type Department Care Team (Latest Contact Info) Description 10/26/2006 Orders Only [facility] Scanning, Provider Social History Tobacco Use Types Packs/Day Years Used Date Smoking Tobacco: Never Assessed Comments Unknown Sex and Gender Information Value Date Recorded Sex Assigned at Not on file Legal Sex Female 9: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 Gender Identity Not on file Sexual Orientation [...] on filedocumented in this encounter Care Teams Vortex Operator Relationship Specialty Start Date End Date Malench, Kiran E., MD [address] [place] [address] PCP - General 02/26/17 01/25/19 Kiran Garvey MD [address] [place] [address] PCP - General 03/21/15 02/25/17 Lorena Taylor MD [address] [place] [address] PCP - General Family Practice 01/26/19 03/31/21 Dante Olivarez PA [address] [place] [address] PCP - General Physician Freight Rate Clerk 04/01/21 06/09/21 Morro Doyle MD [address] [facility] [address] [place] [address] PCP - General Internal Medicine 06/10/21 10/07/21 Nancy Alvares NP [address] [place] [id number] PCP - General Nurse Practitioner 10/08/21 documented as of this encounter
--- OUTSIDE RECORDS SUMMARY | 2025-02-21 17:14 | XMS_ITS | Encounter Summary ---
Author Organization [facility] Address [address] [place] [address] Care Team Providers Care Supervisor Cell Maintenance Name Role Phone Nancy Alvares Primary Care Provider [phone] Reason for Visit * Reason Onset Date Comments Information 02/21/2025 Advice 02/21/2025 Encounter Details Date Type Department Care Team (Late st Contact Info) Description 02/21/2025 Telephone [facility] Medical Group Family & Internal Medicine [facility] [address] [place] [address] Nancy Alvares FNP [address] [place], [place] [phone] Information; Advice Social History Tobacco Use Types Packs/Day Years [...] CDT Gender Identity Female 12/23/2021 9:01 AM DEVICE PROCESSING ENGINEER Sexual Orientation Straight 12/23/2021 9: 01 AM DEVICE PROCESSING ENGINEER documented as of this encounter Progress Notes * Alphonse Hendricks MA - 02/21/2025 11:10 AM CDTAddended by: ALPHONSE HENDRICKS on: 02/21/2025 11:10 AM Modules accepted: Orders * Alphonse Hendricks MA - 02/21/2025 11:09 AM CDT Labs ordered and faxed to fatuma Hendricks MA * Alphonse Hendricks MA - 02/21/2025 10:46 AM CDT Patient informed and v/u Alphonse Hendricks MA * KIANNA Denis - 02/21/2025 10:31 AM CDT She should start a magnesium supplement up to 500 mg nightly. otc * KIANNA Denis - 02/21/2025 10:31 AM CDT Order cbc, cmp, magnesium, UA, b 12 and folate levels * Barbara Maldonado - 02/21/2025 9:30 AM CDT Scheduled patient for the following reason: chronic cough and arms are hurting and having spasms out of nowhere and its simultaneously happening to both arms for about 20 min to an hour. Afterwards arms are lethargic and sore. Starts in forearms and then shoots down to hands and back up to shoulder. 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 This has started a month ago but it is progressing as she goes longer with symptoms, with spasms happening more and more often. I schedule her as soon as I could, but wanted to make sure you didn't want to see her sooner or offer some other advise due to her symptoms. Please advise. documented in this encounter Plan of Treatment Upcoming Encounters Date Type Department Care Team (Late st Contact Info) Description 03/13/2025 11:20 AM CDT Office Visit [facility] Family & Internal Medicine [address] [address] Nancy Alvares FNP [address] [place] [address] 09/20/2025 11:00 AM CDT Office Visit [facility] Family & Internal [address] [address] Nancy Alvares FNP [address] [place] [address] Scheduled Orders Name Type Priority Associated Diagnoses Orde r Schedule CBC W/DIFF AUTOMATED Lab Routine Spasms of the hands or feet Expected: 02/21/2025, Expires: 02/21/2026 COMPREHENSIVE METABOLIC PANEL Lab Routine Spasms of the hands or feet Expected: 02/21/2025, Expires: 02/21/2026 MAGNESIUM Lab Routine Spasms of the hands or feet Expected: 02/21/2025, Expires: 02/21/2026 VITAMIN B12 / FOLATE Lab Routine Spasms of the hands or feet Expected: 02/21/2025, Expires: 02/21/2026 URINALYSIS WI REFLEX TO CULTURE Lab Routine Spasms of the hands or feet Expected: 02/21/2025, Expires: 02/21/2026 documented as of this encounter Visit Diagnoses Diagnosis Muscle spasms of lower extremity, unspecified laterality- Primary Spasms of the hands or feet [place] documented in this encounter Additional Health Concerns Assessment Noted Time PHQ-9 Depression Total Score: 21 023 4:28 PM DEVICE PROCESSING ENGINEER documented as of this encounter Care Teams Supervisor Cell Maintenance Relationship Specialty Start Date End Date Nancy Alvares FNP [address] [place] [address] PCP - General Nurse Practitioner Family 09/12/21 documented as of this encounter
--- OUTSIDE RECORDS SUMMARY | 2025-02-21 17:14 | XMS_ITS | Encounter Summary ---
Author Organization [facility] Address [address] [place] [address] Phone Care Team Providers Care Music Coordinator Name Role Phone Kiran Garvey MD Primary Care Provider + [phone] Kiran Garvey MD Primary Care Provider + [phone] Lorena Taylor MD Primary Care Provider + [phone] Dante Olivarez Primary Care Provider [phone] Morro Doyle MD Primary Care Provider +[phone] Nancy Alvares NP Primary Care Provider + [phone] Encounter Details Date Type Department Care Team (Latest Contact Info) Description 11/10/2006 Orders Only [facility] Scanning, Provider Social History Tobacco Use Types Packs/Day Years Used Date Smoking Tobacco: Never Assessed Comments Unknown Sex and Gender Information Value Date Recorded Sex Assigned at Not on file Legal Sex Female 9:09 PM 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 Gender Identity Not on file Sexual Orientation [...] on filedocumented in this encounter Care Teams Music Coordinator Relationship Specialty Start Date End Date Malench, Kiran E., MD [address] [place] [address] PCP - General 02/26/17 01/25/19 Kiran Garvey MD [address] [place] [address] PCP - General 03/21/15 02/25/17 Lorena Taylor MD [address] [place] [address] PCP - General Family Practice 01/26/19 03/31/21 Dante Olivarez PA [address] [place] [address] PCP - General Physician Student Services Coordinator 04/01/21 06/09/21 Morro Doyle MD [address] [facility] [address] [place] [address] PCP - General Internal Medicine 06/10/21 10/07/21 Nancy Alvares NP [address] [place] [id number] PCP - General Nurse Practitioner 10/08/21 documented as of this encounter
--- OUTSIDE RECORDS SUMMARY | 2025-02-21 17:14 | XMS_ITS | Clinical Summary ---
Author Organization [facility] Address [address] [facility] [place] [address] Care Team Providers Care Import Clerk Name Role Phone Unavailable Primary Care Provider Unavailabl e Source Comments [facility],non-owned Affiliates and Associated Physician Practices is amultiple site organization consisting of ambulatory clinics and hospital sitesin [place], [place], [place] and [place]. This disclosure is being madepursuant to the Care Everywhere program and may not contain all information available regarding this patient. Last updated 18.[facility] Social History Tobacco Use Types Packs/Day Years [...] to complete this topic MENINGOCOCCAL (Group B) VACC INE SHARED DECISION-MAKING Aged Out No longer eligibl e based on patient's age to complete this topic MENINGOCOCCAL GROUPS A/C/Y/W VACCINE Aged Out No longer eligible b ased on patient's age to complete this topic PNEUMOCOCCAL VACCINE Aged Out No long er eligible based on patient's age to complete this topic
--- OUTSIDE RECORDS SUMMARY | 2025-02-21 17:14 | XMS_ITS | Encounter Summary ---
Author Organization [facility] Address [address] [place] [address] Phone Care Team Providers Care Prosthodontist/Owner Name Role Phone Kiran Garvey MD Primary Care Provider + [phone] Kiran Garvey MD Primary Care Provider + [phone] Lorena Taylor MD Primary Care Provider + [phone] Dante Olivarez Primary Care Provider [phone] Morro Doyle MD Primary Care Provider [phone] Nancy Alvares NP Primary Care Provider + [phone] Encounter Details Date Type Department Care Team (Latest Contact Info) Description 02/11/2004 Orders Only [facility] Scanning, Provider Social History Tobacco Use Types Packs/Day Years Used Date Smoking Tobacco: Never Assessed Comments Unknown Sex and Gender Information Value Date Recorded Sex Assigned at Not on file Legal 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 Gender Identity Not on file Sexual Orientation [...] on filedocumented in this encounter Care Teams Prosthodontist/Owner Relationship Specialty Start Date End Date Malench, Kiran E., MD [address] [place] [address] PCP - General 02/26/17 01/25/19 Kiran Garvey MD [address] [place] [address] PCP - General 03/21/15 02/25/17 Lorena Taylor MD [address] [place] [address] PCP - General Family Practice 01/26/19 03/31/21 Dante Olivarez PA [address] [place] [address] PCP - General Physician Puttier 04/01/21 06/09/21 Morro Doyle MD [address] [facility] [address] [place] [address] PCP - General Internal Medicine 06/10/21 10/07/21 Nancy Alvares NP [address] [place] [id number] PCP - General Nurse Practitioner 10/08/21 documented as of this encounter
--- OUTSIDE RECORDS SUMMARY | 2025-02-21 17:14 | XMS_ITS | Continuity of Care Document ---
Author Organization [facility] Address [address] [place] [address] [address] [place] [address] Phone Care Team Providers Care Fiscal Services Manager Name Role Phone Jin OD, Toby Unavailable Unavailable Procedures Procedure Date Office/outpatient Visit, [facility] Advance Directives Directive Yes / No Effective Date File Name No Information Encounters Encounter Description Practice Location Reason(s) For Visit Diagnoses Date Provider Providers Copied on Encounter Office/outpat ient Visit, [facility], [address], [place], [place], [id number], [place] tel:[phone] [facility] No Information 2-201 0 Jin OD Toby. [address] , [address], [place], [address], [place]. tel:[phone] Family History Family Member Type Diagnosis Age At Onset No Information Payers Payer name Insurance type Covered democrat ID Authoriza tion(s) No Information Social History [...]
--- OUTSIDE RECORDS SUMMARY | 2025-02-21 17:14 | XMS_ITS | Encounter Summary ---
Author Organization [facility] Address [address] [place] [address] Phone Care Team Providers Care Buttonhole Maker Hand Name Role Phone Kiran Garvey MD Primary Care Provider + [phone] Kiran Garvey MD Primary Care Provider + [phone] Lorena Taylor MD Primary Care Provider + [phone] Dante Olivarez Primary Care Provider [phone] Morro Doyle MD Primary Care Provider [phone] Nancy Alvares NP Primary Care Provider + [phone] Encounter Details Date Type Department Care Team (Latest Contact Info) Description 04/13/2005 Orders Only [facility] Scanning, Provider Social History Tobacco Use Types Packs/Day Years Used Date Smoking Tobacco: Never Assessed Comments Unknown Sex and Gender Information Value Date Recorded Sex Assigned at Not on file 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 Gender Identity Not on file Sexual Orientation [...] on filedocumented in this encounter Care Teams Buttonhole Maker Hand Relationship Specialty Start Date End Date Malench, Kiran E., MD [address] [place] [address] PCP - General 02/26/17 01/25/19 Kiran Garvey MD [address] [place] [address] PCP - General 03/21/15 02/25/17 Lorena Taylor MD [address] [place] [address] PCP - General Family Practice 01/26/19 03/31/21 Dante Olivarez PA [address] [place] [address] PCP - General Physician Cash Accountant 04/01/21 06/09/21 Morro Doyle MD [address] [facility] [address] [place] [address] PCP - General Internal Medicine 06/10/21 10/07/21 Nancy Alvares NP [address] [place] [id number] PCP - General Nurse Practitioner 10/08/21 documented as of this encounter
--- OUTSIDE RECORDS SUMMARY | 2025-02-21 17:14 | XMS_ITS | Encounter Summary ---
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
--- OUTSIDE RECORDS SUMMARY | 2025-02-21 17:14 | XMS_ITS | Encounter Summary ---
Author Organization [facility] Address [address] [place] [address] Phone Care Team Providers Care Quilt Sewer Name Role Phone Kiran Garvey MD Primary Care Provider + [phone] Kiran Garvey MD Primary Care Provider + [phone] Lorena Taylor MD Primary Care Provider + [phone] Dante Olivarez Primary Care Provider [phone] Morro Doyle MD Primary Care Provider [phone] Nancy Alvares NP Primary Care Provider + [phone] Encounter Details Date Type Department Care Team (Latest Contact Info) Description 02/10/2007 Orders Only [facility] Scanning, Provider Social History Tobacco Use Types Packs/Day Years Used Date Smoking Tobacco: Never Assessed Comments Unknown Sex and Gender Information Value Date Recorded Sex Assigned at Not on file Legal Sex Female 9: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 Gender Identity Not on file Sexual Orientation [...] on filedocumented in this encounter Care Teams Quilt Sewer Relationship Specialty Start Date End Date Malench, Kiran E., MD [address] [place] [address] PCP - General 02/26/17 01/25/19 Kiran Garvey MD [address] [place] [address] PCP - General 03/21/15 02/25/17 Lorena Taylor MD [address] [place] [address] PCP - General Family Practice 01/26/19 03/31/21 Dante Olivarez PA [address] [place] [address] PCP - General Physician Cosmetics Demonstrator 04/01/21 06/09/21 Morro Doyle MD [address] [facility] [address] [place] [address] PCP - General Internal Medicine 06/10/21 10/07/21 Nancy Alvares NP [address] [place] [id number] PCP - General Nurse Practitioner 10/08/21 documented as of this encounter
--- OUTSIDE RECORDS SUMMARY | 2025-02-21 17:14 | XMS_ITS | Encounter Summary ---
Author Organization [facility] Address [address] [place] [address] Phone Care Team Providers Care Controls Design Engineer Name Role Phone Kiran Garvey MD Primary Care Provider + [phone] Kiran Garvey MD Primary Care Provider + [phone] Lorena Taylor MD Primary Care Provider + [phone] Dante Olivarez Primary Care Provider [phone] Morro Doyle MD Primary Care Provider [phone] Nancy Alvares NP Primary Care Provider + [phone] Encounter Details Date Type Department Care Team (Latest Contact Info) Description 04/16/2006 Orders Only [facility] Scanning, Provider Social History Tobacco Use Types Packs/Day Years Used Date Smoking Tobacco: Never Assessed Comments Unknown Sex and Gender Information Value Date Recorded Sex Assigned at Not on file Legal Sex Female 9:09 PM PILLOW AGENT Gender Identity Not on file Sexual Orientation [...] on filedocumented in this encounter Care Teams Controls Design Engineer Relationship Specialty Start Date End Date Malench, Kiran E., MD [address] [place] [address] PCP - General 02/26/17 01/25/19 Kiran Garvey MD [address] [place] [address] PCP - General 03/21/15 02/25/17 Lorena Taylor MD [address] [place] [address] PCP - General Family Practice 01/26/19 03/31/21 Dante Olivarez PA [address] [place] [address] PCP - General Physician Senior Care Provider 04/01/21 06/09/21 Morro Doyle MD [address] [facility] [address] [place] [address] PCP - General Internal Medicine 06/10/21 10/07/21 Nancy Alvares NP [address] [place] [id number] PCP - General Nurse Practitioner 10/08/21 documented as of this encounter
--- OUTSIDE RECORDS SUMMARY | 2025-02-21 17:14 | XMS_ITS | Clinical Summary ---
Author Organization [facility] [address] Address [address] [place] [address] Care Team Providers Care Head Banquet Waiter/Waitress Name Role Phone Nancy Alvares NP Primary Care Provider [phone] Allergies No known active allergies Medications losartan (COZAAR) 50 mg tablet take 1 tablet by oral route every day 0 0 05/01/20 15 Active aspirin-acetaminop hen-caffeine (EXCEDRIN EXTRA STRENGTH) 250-250-65 mg per tablet take 0.5 Tablet by Oral route once as needed for migraine 0 0 05/01/20 15 Active indapamide (LOZOL) 2.5 mg tablet take 1 tablet by oral route 2 times every day in the morning 0 0 05/01/20 15 Active eletriptan (RELPAX) 40 mg tablet Take 1 tablet (40 mg total) by mouth as needed Active LORazepam (ATIVAN) 0.5 mg tablet Take 1 tablet (0.5 mg total) by mouth as needed 5 10/17/20 19 Active Symbicort 80-4.5 mcg/actuation inhaler 11/11/20 21 Active HYDROcodone-chlorp heniramine ER (TUSSIONEX PENNKINETIC) 2-1.6 mg/mL ER suspension Take 2.5 mL by mouth every 12 (twelve) hours as needed 10/17/20 21 Active ondansetron (ZOFRAN) 4 mg tablet TAKE 1 TABLET BY MOUTH EVERY 6 HOURS NEEDED FOR NAUSEA OR VOMITING 07/01/20 21 Active folic acid (FOLVITE) 1 mg tablet 09/14/20 22 Active Ciprodex otic suspension 06/11/20 23 Active methylPREDNISolone (MEDROL DOSEPACK) 4 mg Dosepack 07/01/20 23 Active methylPREDNISolone (MEDROL) 4 mg tablet 07/01/20 23 Active omeprazole (PriLOSEC) 40 mg capsule TAKE 1 CAPSULE(40 MG) BY MOUTH DAILY 30 capsule 11 04/17/20 24 Active cholecalciferol (VITAMIN D-3) 50,000 unit capsule Take 1 capsule (50,000 Units total) by mouth once a week 10/12/20 24 Active fluticasone propionate (FLONASE) 50 mcg/actuation nasal spray Administer 2 sprays into affected nostril(s) daily 11/24/20 23 Active omeprazole (PriLOSEC) 40 mg capsule Take 1 capsule (40 mg total) by mouth 2 (two) times a day 60 capsule 11 12/19/19 25 Active ondansetron ODT (ZOFRAN-ODT) 4 mg disintegrating tablet 01/17/20 25 Active albuterol HFA (PROVENTIL HFA,VENTOLIN HFA,PROAIR HFA) 90 mcg/actuation inhaler INHALE 1-2 PUFFS BY MOUTH EVERY 4-6 HOURS NEEDED SHORTNESS OF BREATH 01/18/20 25 Active pramipexole (MIRAPEX) 0.25 mg tabletIndications: Parkinson disease (HCC) Take 1 tablet (0.25 mg total) by mouth 3 (three) times a day 270 tablet 1 01/26/20 25 025 Active pramipexole (MIRAPEX) 0.25 mg tabletIndications: Parkinson disease (HCC) TAKE 1 TABLET(0.25 MG) BY MOUTH THREE TIMES DAILY 90 tablet 06/21/20 24 025 Discontin ued(Reord er) Active Problems Problem Noted Date Diagnosed Date Epigastric pain 10/12/2024 Abdominal pain 10/12/2024 Left carotid bruit 10/03/2024 Personal history of colonic polyps 11/16/2022 Overview (11/16/2022): Added automatically from request for surgery [id number] Family history of malignant neoplasm of gastrointestinal tract 11/16/2022 Overview (11/16/2022): Added automatically from request for surgery [id number] Parkinson disease 06/10/2021 Assessment & Plan (11/18/2021 4:42 PM GAS TORCH SOLDERER): Patient continues at this time on pramipexole [...] Encounters Date Type Department Care Team Description 01/26/2025 4:00 PM GAS TORCH SOLDERER Office Visit [facility] Neurology [address] [place] [address] [place] [address] Marlin Kirkland NP Parkinson disease (HCC) (Primary Dx); Paresthesia of skin; Memory disturbance 12/22/2024 Telephone [facility] Gastroenterology [address] [place] [address] Medical Office [address] [place] [address] Ayanna Venegas, DEVIN GI path results 12/19/2024 8:43 AM GAS TORCH SOLDERER Anesthesia Event [facility] [address] [place] [address] Grupo Orozco MD Boyle, Christine Michelle, STEFANO 12/19/2024 8:30 AM GAS TORCH SOLDERER - 12/19/2024 9:00 AM GAS TORCH SOLDERER Surgery [facility] [address] [address] [address] Catrachito Link MD COLON BIOPSY 12/19/2024 7:11 AM GAS TORCH SOLDERER - 12/19/2024 10:15 AM GAS TORCH SOLDERER Hospital Encounter [facility] [address] [address] [place] [address] Catrachito Link MD Epigastric pain; Abdominal pain Discharge Disposition: Discharge to home or self care 12/04/2024 Telephone [facility] G[facility]enterology [address] [place] [address] Medical Office [address] [place] [phone] Bailey Merrill, RN Reschedule from Last 3 Months Surgical History Surgery [...] on file Legal Sex Female 9:09 PM GAS TORCH SOLDERER Gender Identity Not on file Sexual Orientation Not on file Obstetrics History Last Filed Vital Signs Vital Sign Reading Time Taken Comments Blood Pressure 119/79 01/26/2025 3:50 PM GAS TORCH SOLDERER Pulse 93 01/26/2025 3:50 PM GAS TORCH SOLDERER Temperature 36.3 C (97.3 F) 12/19/2024 9:15 AM GAS TORCH SOLDERER Respiratory Rate 20 01/26/2025 3:50 PM GAS TORCH SOLDERER Oxygen Saturation 97% 01/26/2025 3:50 PM GAS TORCH SOLDERER Inhaled Oxygen Concentration - - Weight 90.7 kg (200 lb) 01/26/2025 3:50 PM GAS TORCH SOLDERER Height 167.6 cm (5' 6 ) 01/26/2025 3:50 PM GAS TORCH SOLDERER Body Mass Index 32.28 01/26/2025 3:50 PM GAS TORCH SOLDERER Plan of Treatment Scheduled Procedures Name Priority [...] Associated Diagnosis Comments COLONOSCOPY 12/19/2024 8:53 AM GAS TORCH SOLDERER SURGICAL PATHOLOGY Routine 12/19/2024 8:51 AM GAS TORCH SOLDERER Epigastric pain Abdominal pain ESOPHAGOGASTRODUODENOSCOPY BIOPSY 12/19/2024 8:43 AM GAS TORCH SOLDERER Epigastric pain Abdominal pain COLON BIOPSY 12/19/2024 8:43 AM GAS TORCH SOLDERER Epigastric pain Abdominal pain EGD 12/19/2024 8:41 AM GAS TORCH SOLDERER from Last 3 Months Results * Colonoscopy (12/19/2024 8:53 AM GAS TORCH SOLDERER) Anatomical Region Laterality Modality Other Narrative Procedure Note Catrachito Link MD - 12/19/2024 8:53 AM CST ENDOSCOPY LAB Patient Name: Bijal Douglas Procedure Date: 12/19/2024 8:53 AM Date of : 1965 Admit Type: Outpatient Age: 59 Gender: Female Attending MD: Catrachito Link M.D. Room: [facility] ENDOSCOPY ROOM 04 Note Status: Finalized [...] The scope was passed under direct vision.The [id number] was introduced through the anusand advanced to [...] Final * Surgical pathology (12/19/2024 8:51 AM GAS TORCH SOLDERER) Tissue (Gastric/Stomach biopsy) 12/19/2024 8:51 AM GAS TORCH SOLDERER Tissue (Polyp(s), colon/colorectal, esophageal, gastric) 12/19/2024 9:04 AM GAS TORCH SOLDERER Narrative PATHOLOGY [facility] - 12/21/2024 1:46 PM GAS TORCH SOLDERER EPIC results best viewed via link to PDF [facility] [place] [address] Note to Patients: This report may contain [...] Gender: F : 1965 (Age: 59) Address: [address] [place] [address] Hospital #: [id number] Taken:12/19/2024 Received:12/19/2024 Reported: 12/21/2024 Patient Type: [facility] SAME Client [facility] Service: Gastro Location: Physician(s): Homer Hicks FNP Diagnosis: A. Stomach, random biopsy: - Antral mucosa with reactive epithelial changes. - No Helicobacter pylori is seen. B. Colon, polyps, polypectomy: - Polypoid colonic mucosa with lymphoid aggregate and reactive epithelial changes. [facility]/12/20/2024 13:00 By this signature, I attest that [...] interpretation for this case was performed at [facility], Department of Surgical Pathology, [address] [facility], [place] [address], [place] [address] CLIA # [id number] The performance characteristics of some immunohistochemical stains, fluorescence in-situ hybridization tests and immunophenotyping by flow cytometry cited in this report (if any) were determined by the Surgical Pathology and Flow Cytometry Departments at [facility] as part of an ongoing air quality instrument specialist program and in compliance with federally [...] Surgical Pathology and Flow Cytometry Departments of [facility]. It has not been cleared or approved by the U. S. Food and Drug Administration. IMAGES AND SCANNED DOCUMENTS, IF INCLUDED, ONLY VIEWABLE IN PDF VERSION OF REPORT us Catrachito Link MD LAB PATHOLOGY ORDERABLES F inal Result PATHOLOGY [facility] [phone] * EGD (12/19/2024 8:41 AM GAS TORCH SOLDERER) Anatomical Region Laterality Modality Other Narrative Procedure Note Catrachito Link MD - 12/19/2024 8:41 AM CST ENDOSCOPY LAB Patient Name: Bijal Douglas Procedure Date: 12/19/2024 8:41 AM Date of : 1965 Admit Type: Outpatient Age: 59 Gender: Female Attending MD: Catrachito Link M.D. Room: [facility] ENDOSCOPY ROOM 04 Note Status: Finalized Procedure: Upper GI endoscopy Indications: Abdominal pain Providers: Catrachito Link M.D. Referring MD: Eamon AlyN.Alok Medicines: Monitored Anesthesia Care Complications: No immediate [...] and oxygen saturations were monitored continuously. The [id number] was introduced through the mouth,and advanced to [...] Catrachito Link MD ENDOSCOPY PROCEDURES Final Result from Last 3 Months [id number] For more information, please contact: [phone] * Full Code (Latest Code Status on File) Date Activated Date Inactivated Comments 12/19/2024 7:45 AM 12/19/2024 6:30 PM * Full Code Date Activated Date Inactivated Comments 11/18/2022 11:43 AM 11/18/2022 5:30 PM Care Teams Head Banquet Waiter/Waitress Relationship Specialty Start Date End Date Nancy Alvares NP [address] [place] [address] PCP - General Nurse Practitioner 10/08/21
--- OUTSIDE RECORDS SUMMARY | 2025-02-21 17:14 | XMS_ITS | Encounter Summary ---
Author Organization [facility] Address [address] [place] [address] Phone Care Team Providers Care Director Of Operations For Therapy Name Role Phone Morro Doyle MD Primary Care Provider [phone] Nancy Alvares NP Primary Care Provider + [phone] Encounter Details Date Type Department Care Team [...] on file Legal Sex Female 9:09 PM PHOTOGRAPHIC DEVELOPER AND PRINTER Gender Identity Not on file Sexual Orientation [...] on filedocumented in this encounter Care Teams Director Of Operations For Therapy Relationship Specialty Start Date End Date Morro Doyle MD [address] [place] [address] PCP - General Internal Medicine 06/10/21 10/07/21 Nancy Alvares NP [address] [place] [address] PCP - General Nurse Practitioner 10/08/21 documented as of this encounter
--- OUTSIDE RECORDS SUMMARY | 2025-02-21 17:14 | XMS_ITS | Encounter Summary ---
Author Organization [facility] Address [address] [place] [address] Phone Care Team Providers Care Quality Systems Specialist Name Role Phone Kiran Garvey MD Primary Care Provider + [phone] Kiran Garvey MD Primary Care Provider + [phone] Lorena Taylor MD Primary Care Provider + [phone] Dante Olivarez Primary Care Provider [phone] oMrro Doyle MD Primary Care Provider [phone] Nancy Alvares NP Primary Care Provider + [phone] Encounter Details Date Type Department Care Team (Latest Contact Info) Description 11/23/2006 Orders Only [facility] Scanning, Provider Social History Tobacco Use Types Packs/Day Years Used Date Smoking Tobacco: Never Assessed Comments Unknown Sex and Gender Information Value Date Recorded Sex Assigned at Not on file Legal Sex Female 9:09 PM GASATERIA ATTENDANT Gender Identity Not on file Sexual Orientation [...] on filedocumented in this encounter Care Teams Quality Systems Specialist Relationship Specialty Start Date End Date Malench, Kiran E., MD [address] [place] [address] PCP - General 02/26/17 01/25/19 Kiran Garvey MD [address] [place] [address] PCP - General 03/21/15 02/25/17 Lorena Taylor MD [address] [place] [address] PCP - General Family Practice 01/26/19 03/31/21 Dante Olivarez PA [address] [place] [address] PCP - General Physician Moveman 04/01/21 06/09/21 Morro Doyle MD [address] [facility] [address] [place] [address] PCP - General Internal Medicine 06/10/21 10/07/21 Nancy Alvares NP [address] [place] [id number] PCP - General Nurse Practitioner 10/08/21 documented as of this encounter
--- OUTSIDE RECORDS SUMMARY | 2025-02-21 17:14 | XMS_ITS | Referral Summary ---
Author Organization [facility] [address] Address [address] [place] [address] Care Team Providers Care Gizzard Puller Name Role Phone Nancy Alvares NP Primary Care Provider Encounters Date Type Department Care Team Description 01/26/2025 4:00 PM VENUE MANAGER Office Visit [facility] Neurology [address] [place] [address] [address] [place] [address] Marlin Kirkland NP Parkinson disease (HCC) (Primary Dx); Paresthesia of skin; Memory disturbance 12/22/2024 Telephone [facility] Gastroenterology [address] [place] [address] Medical Office Building [address], [address] [place] [address] Ayanna Venegas RN GI path results 12/19/2024 8:30 AM VENUE MANAGER - 12/19/2024 9:00 AM VENUE MANAGER Surgery [facility] Endoscopy [address] [place] [address] Catrachito Link MD COLON BIOPSY 12/19/2024 8:43 AM VENUE MANAGER Anesthesia Event [facility] Endoscopy [address] [place] [address] Grupo Orozco MD Boyle, Christine Michelle, INDUSTRIAL RELATIONS ANALYST 12/19/2024 7:11 AM VENUE MANAGER - 12/19/2024 10:15 AM VENUE MANAGER Hospital Encounter [facility] Endoscopy [address] [place] [address] Catrachito Link MD Epigastric pain; Abdominal pain Discharge Disposition: Discharge to home or self care 12/04/2024 Telephone [facility] [address] [facility] Medical Office [address] [place] [address] Bailey Merrill, RN Reschedule from Last 3 Months Allergies No known [...] (11/16/2022): Added automatically from request for surgery [id number] Family history of malignant neoplasm of gastrointestinal tract 11/16/2022 Overview (11/16/2022): Added automatically from request for surgery [id number] Parkinson disease 06/10/2021 Assessment & Plan (11/18/2021 4:42 PM VENUE MANAGER): Patient continues at this time on [...] on file Legal Sex Female 9:09 PM VENUE MANAGER Gender Identity Not on file Sexual Orientation Not on file Last Filed Vital Signs Vital Sign Reading Time Taken Comments Blood Pressure 119/79 01/26/2025 3:50 PM VENUE MANAGER Pulse 93 01/26/2025 3:50 PM VENUE MANAGER Temperature 36.3 C (97.3 F) 12/19/2024 9:15 AM VENUE MANAGER Respiratory Rate 20 01/26/2025 3:50 PM VENUE MANAGER Oxygen Saturation 97% 01/26/2025 3:50 PM VENUE MANAGER Inhaled Oxygen Concentration - - Weight 90.7 kg (200 lb) 01/26/2025 3:50 PM VENUE MANAGER Height 167.6 cm (5' 6 ) 01/26/2025 3:50 PM VENUE MANAGER Body Mass Index 32.28 01/26/2025 3:50 PM VENUE MANAGER Plan of Treatment Scheduled Procedures Name Priority Associated Diagnoses Date/Ti me COLONOSCOPY Colon cancer screening Procedures Procedure Name Priority Date/Time Associated Diagnosis Comments COLONOSCOPY 12/19/2024 8:53 AM VENUE MANAGER SURGICAL PATHOLOGY Routine 12/19/2024 8:51 AM VENUE MANAGER Epigastric pain Abdominal pain ESOPHAGOGASTRODUODENOSCOPY BIOPSY 12/19/2024 8:43 AM VENUE MANAGER Epigastric pain Abdominal pain COLON BIOPSY 12/19/2024 8:43 AM VENUE MANAGER Epigastric pain Abdominal pain EGD 12/19/2024 8:41 AM VENUE MANAGER from Last 3 Months Results * Colonoscopy (12/19/2024 8:53 AM VENUE MANAGER) Anatomical Region Laterality Modality Other Narrative Procedure Note Catrachito Link MD - 12/19/2024 8:53 AM CST ENDOSCOPY LAB Patient Name: Bijal Douglas Procedure Date: 12/19/2024 8:53 AM Date of : 1965 Admit Type: Outpatient Age: 59 Gender: Female Attending MD: Catrachito Link M.D. Room: [facility] ENDOSCOPY ROOM 04 Note Status: Finalized Procedure: Colonoscopy Indications: Abdominal pain, FH colon cancer Providers: Catrachito Link M.D. Referring MD: Nancy Alvares F.N.PSara Medicines: Monitored Anesthesia Care Complications: No immediate [...] The scope was passed under direct vision.The [id number] was introduced through the anusand advanced to [...] Final * Surgical pathology (12/19/2024 8:51 AM VENUE MANAGER) Tissue (Gastric/Stomach biopsy) 12/19/2024 8:51 AM VENUE MANAGER Tissue (Polyp(s), colon/colorectal, esophageal, gastric) 12/19/2024 9:04 AM VENUE MANAGER Narrative PATHOLOGY [facility] - 12/21/2024 1:46 PM VENUE MANAGER EPIC results best viewed via link to PDF [facility] [place] [address] Note to Patients: This report may contain [...] Gender: F : 1965 (Age: 59) Address: [address] [place] [address] Hospital #: [id number] Taken:12/19/2024 Received:12/19/2024 Reported: 12/21/2024 Patient Type: [facility] EP SAME Client [facility] Service: Gastro Location: Physician(s): Homer Hicks [facility] Diagnosis: A. Stomach, random biopsy: - Antral mucosa with reactive epithelial changes. - No Helicobacter pylori is seen. B. Colon, polyps, polypectomy: - Polypoid colonic mucosa with lymphoid aggregate and reactive epithelial changes. [facility]/12/20/2024 13:00 By this signature, I attest that [...] interpretation for this case was performed at [facility], Department of Surgical Pathology, [address] [facility] [place], [place] [id number], [place] [address] CLIA # [id number] The performance characteristics of some immunohistochemical stains, fluorescence in-situ hybridization tests and immunophenotyping by flow cytometry cited in this report (if any) were determined by the Surgical Pathology and Flow Cytometry Departments at [facility] as part of an ongoing assistant quality manager program and in compliance with federally mandated [...] Surgical Pathology and Flow Cytometry Departments of [facility]. It has not been cleared or approved by the U. S. Food and Drug Administration. IMAGES AND SCANNED DOCUMENTS, IF INCLUDED, ONLY VIEWABLE IN PDF VERSION OF REPORT us aCtrachito Link MD LAB PATHOLOGY ORDERABLES F inal Result PATHOLOGY [facility] [phone] * EGD (12/19/2024 8:41 AM VENUE MANAGER) Anatomical Region Laterality Modality Other Narrative Procedure Note Catrachito Link MD - 12/19/2024 8:41 AM CST ENDOSCOPY LAB Patient Name: Bijal Douglas Procedure Date: 12/19/2024 8:41 AM Date of : 1965 Admit Type: Outpatient Age: 59 Gender: Female Attending MD: Catrachito Link M.D. Room: [facility] ENDOSCOPY ROOM 04 Note Status: Finalized Procedure: [...] and oxygen saturations were monitored continuously. The [id number] was introduced through the mouth,and advanced to [...] Final Result from Last 3 Months Insurance [facility] [place] Advance Directives For more information, please contact: [phone] * Full Code (Latest Code Status on File) Date Activated Date Inactivated Comments 12/19/2024 7:45 AM 12/19/2024 6:30 PM * Full Code Date Activated Date Inactivated Comments 11/18/2022 11:43 AM 11/18/2022 5:30 PM Care Teams Gizzard Puller Relationship Specialty Start Date End Date Nancy Alvares NP [address] [place] [address] PCP - General Nurse Practitioner 10/08/21
--- OUTSIDE RECORDS SUMMARY | 2025-02-21 17:14 | XMS_ITS | Encounter Summary ---
Author Organization [facility] Address [address] [place] [address] Care Team Providers Care Publication Specialist Name Role Phone Nancy Alvares Primary Care Provider [phone] Reason for Visit * Reason Onset Date Comments Appointment Request 02/19/2025 Encounter Details Date Type Department Care Team (Late st Contact Info) Description 02/19/2025 Telephone [facility] Family & Internal Medicine [address] [place] [address] Nancy Alvares FNP [facility][note 2]1 [place], [place] [address] Appointment Request Social History Tobacco Use Types Packs/Day Years [...] CDT Gender Identity Female 12/23/2021 9:01 AM ELECTRONICS MANUFACTURER Sexual Orientation Straight 12/23/2021 9: 01 AM ELECTRONICS MANUFACTURER documented as of this encounter Progress Notes * Radha Hendricks MA - 02/21/2025 9:18 AM CDT Left message for patient to return call. February 21, 2025 , Radha Hendricks MA * Radha Hendricks MA - 02/20/2025 5:04 PM CDT Left message for patient to return call. February 20, 2025 , Radha Hendricks MA * Barbara Maldonado - 02/19/2025 2:31 PM CDT Left voicemail for pt to reschedule appt on March 14 as Nancy is going back to since the government extended that and that is a designated . documented in this encounter Plan of Treatment Upcoming Encounters Date Type Department Care Team (Late st Contact Info) Description 03/13/2025 11:20 AM CDT Office Visit [facility] Family & Internal [address] [address] Nancy Alvares FNP [address] [place] [address] 09/20/2025 11:00 AM CDT Office Visit [facility] Family & Internal [address] [address] Nancy Alvares FNP [facility][note 2]1 [place] [address] documented as of this encounter Visit Diagnoses Not on filedocumented in this encounter Additional Health Concerns Assessment Noted Time PHQ-9 Depression Total Score: 21 023 4:28 PM ELECTRONICS MANUFACTURER documented as of this encounter Care Teams Publication Specialist Relationship Specialty Start Date End Date Nancy Alvares FNP [address] [place] [address] PCP - General Nurse Practitioner Family 09/12/21 documented as of this encounter
--- OUTSIDE RECORDS SUMMARY | 2025-02-21 17:14 | XMS_ITS | Encounter Summary ---
Author Organization [facility] Address [address] [place] [address] Phone Care Team Providers Care Pre Press Proofer Name Role Phone Morro Doyle MD Primary Care Provider [phone] Nancy Alvares NP Primary Care Provider + [phone] Encounter Details Date Type Department Care Team [...] on file Legal Sex Female 9:09 PM RODEO CLOWN Gender Identity Not on file Sexual Orientation [...] on filedocumented in this encounter Care Teams Pre Press Proofer Relationship Specialty Start Date End Date Morro Doyle MD [address] [place] [address] PCP - General Internal Medicine 06/10/21 10/07/21 Nancy Alvares NP [address] [place] [address] PCP - General Nurse Practitioner 10/08/21 documented as of this encounter
--- OUTSIDE RECORDS SUMMARY | 2025-02-21 17:15 | XMS_ITS | Encounter Summary ---
Author Organization [facility] Address [address] [place] [address] Phone Care Team Providers Care Energy Project Manager Name Role Phone Kiran Garvey MD Primary Care Provider + [phone] Kiran Garvey MD Primary Care Provider + [phone] Lorena Taylor MD Primary Care Provider + [phone] Dante Olivarez Primary Care Provider [phone] Morro Doyle MD Primary Care Provider [phone] Nancy Alvares NP Primary Care Provider + [phone] Encounter Details Date Type Department Care Team (Latest Contact Info) Description 02/27/2011 Orders Only [facility] Scanning, Provider Social History Tobacco Use Types Packs/Day Years Used Date Smoking Tobacco: Never Assessed Comments Unknown Sex and Gender Information Value Date Recorded Sex Assigned at Not on file Legal Sex Female 9:09 PM SPRAYER LEATHER Gender Identity Not on file Sexual Orientation [...] on filedocumented in this encounter Care Teams Energy Project Manager Relationship Specialty Start Date End Date Malench, Kiran E., MD [address] [place] [address] PCP - General 02/26/17 01/25/19 Kiran Garvey MD [address] [place] [place] [address] PCP - General 03/21/15 02/25/17 Lorena Taylor MD [address] [place] [address] PCP - General Family Practice 01/26/19 03/31/21 Dante Olivarez PA [address] [place] [address] PCP - General Physician Investigator Internal Affairs 04/01/21 06/09/21 Morro Doyle MD [address] [facility] [address] [place] [address] PCP - General Internal Medicine 06/10/21 10/07/21 Nancy Alvares NP [address] [place] [id number] PCP - General Nurse Practitioner 10/08/21 documented as of this encounter
--- OUTSIDE RECORDS SUMMARY | 2025-02-21 17:15 | XMS_ITS | Encounter Summary ---
Author Organization [facility] Address [address] [place] [address] Care Team Providers Care Electrical Line Worker Name Role Phone Nancy Alvares Primary Care Provider [phone] Encounter Details Date Type Department Care Team (Late st Contact Info) Description 10/12/2024 MyCLamieccot Message Enc [facility] Medical Group Family & Internal Medicine [facility] [address] [place] [address] Nancy Alvares FNP [facility] [place], [place] [id number] EDG & Colonoscopy Referral Social History Tobacco [...] CDT Gender Identity Female 12/23/2021 9:01 AM MANAGING PRINCIPAL Sexual Orientation Straight 12/23/2021 9: 01 AM MANAGING PRINCIPAL documented as of this encounter Progress Notes * KIANNA Denis - 10/17/2024 3:33 PM CST Oh I thought she wanted a GI referral? GING PRINCIPAL * Lian Marrufo - 10/12/2024 12:41 PM CST Patient called back and wanted to speak to Nancy about this referral. Everyone is a lunch so I told her that someone will give her a call once the message has been read. GING PRINCIPAL documented in this encounter Plan of Treatment Upcoming Encounters Date Type Department Care Team (Late st Contact Info) Description 03/13/2025 11:20 AM CDT Office Visit [facility] Family & Internal [address] [address] Nancy Alvares FNP [address] [place] [address] 09/20/2025 11:00 AM CDT Office Visit [facility] Internal [address] [address] Nancy Alvares FNP [address] [place] [address] documented as of this encounter Visit Diagnoses Not on filedocumented in this encounter Additional Health Concerns Assessment Noted Time PHQ-9 Depression Total Score: 21 023 4:28 PM MANAGING PRINCIPAL documented as of this encounter Care Teams Electrical Line Worker Relationship Specialty Start Date End Date Nancy Alvares FNP [address] [place] [address] PCP - General Nurse Practitioner Family 09/12/21 documented as of this encounter
--- OUTSIDE RECORDS SUMMARY | 2025-02-21 17:15 | XMS_ITS | Encounter Summary ---
Author Organization [facility] Address [address] [place] [address] Care Team Providers Care Reporting Manager Name Role Phone Nancy Alvares Primary Care Provider Encounter Details Date Type Department Care Team (Late st Contact Info) Description 03/16/2024 MyChart Message Enc [facility] Medical Group Family & Internal Medicine [facility] [address] [place] [address] Nancy Alvares FNP [address] [place], [place] [phone] Rolled Ankle Social History Tobacco Use Types [...] CDT Gender Identity Female 12/23/2021 9:01 AM LINING REPAIRER Sexual Orientation Straight 12/23/2021 9: 01 AM LINING REPAIRER documented as of this encounter Progress Notes * Sammie Ricks RN - 03/17/2024 1:58 PM CDT Patient I going to go to walk in clinic in [place]. Opportunity given for all questions to be [...] Description 03/13/2025 11:20 AM CDT Office Visit [facility] Family & Internal [address] [address] Nancy Alvares FNP [address] [place] [address] 09/20/2025 11:00 AM CDT Office Visit [facility] Family & Internal [address] [address] Nancy Alvares FNP [address] [place] [address] documented as of this encounter Visit Diagnoses Not on filedocumented in this encounter Additional Health Concerns Assessment Noted Time PHQ-9 Depression Total Score: 21 023 4:28 PM LINING REPAIRER documented as of this encounter Care Teams Reporting Manager Relationship Specialty Start Date End Date Nancy Alvares FNP [address] [place] [address] PCP - General Nurse Practitioner Family 09/12/21 documented as of this encounter
--- OUTSIDE RECORDS SUMMARY | 2025-02-21 17:15 | XMS_ITS | Encounter Summary ---
Author Organization [facility] Address [address] [place] [address] Care Team Providers Care Hydrology Technician Name Role Phone Nancy Alvares Primary Care Provider [phone] Encounter Details Date Type Department Care Team (Latest Contact Info) Description 09/22/2022 Aquicorehart Message Enc [facility] Medical Group Family & Internal Medicine [facility] [address] [place] [address] Nancy Alvares FNP [address] [place], [place] [phone] Technology Coordinator Referral Social History Tobacco Use Types Packs/Day [...] CDT Gender Identity Female 12/23/2021 9:01 AM PARTS SALVAGER Sexual Orientation Straight 12/23/2021 9: 01 AM PARTS SALVAGER COVID-19 Exposure Response Date Recorded In the [...] Description 03/13/2025 11:20 AM CDT Office Visit [facility] Family & Internal [address] [address] Nancy Alvares FNP [address] [place] [address] 09/20/2025 11:00 AM CDT Office Visit [facility] Internal [address] [address] Nancy Alvares FNP [address] [place] [address] documented as of this encounter Visit Diagnoses Not on filedocumented in this encounter Additional Health Concerns Assessment Noted Time PHQ-9 Depression Total Score: 12 021 12:38 PM CDT documented as of this encounter Care Teams Hydrology Technician Relationship Specialty Start Date End Date Nancy Alvares FNP [address] [place] [address] PCP - General Nurse Practitioner Family 09/12/21 documented as of this encounter
--- OUTSIDE RECORDS SUMMARY | 2025-02-21 17:15 | XMS_ITS | Encounter Summary ---
Author Organization [facility] Address [address] [place] [address] Care Team Providers Care Director Clinical Applications Name Role Phone Nancy Alvares Primary Care Provider [phone] Encounter Details Date Type Department Care Team (Late st Contact Info) Description 08/13/2023 MyChart Message Enc [facility] Medical Group Family & Internal Medicine [facility] [address] [place] [address] Nancy Alvares FNP [facility] [place], [place] [phone] Sick Social History Tobacco Use Types Packs/Day [...] CDT Gender Identity Female 12/23/2021 9:01 AM PULMONARY PHYSICIAN Sexual Orientation Straight 12/23/2021 9: 01 AM PULMONARY PHYSICIAN documented as of this encounter Progress Notes [...] Visit [facility] Family & Internal [address] [address] Nancy Alvares FNP [address] [place] [address] 09/20/2025 11:00 AM CDT Office Visit [facility] Family & Internal [address] [address] Nancy Alvares FNP [facility] [place] [address] documented as of this encounter Visit Diagnoses Not on filedocumented in this encounter Additional Health Concerns Assessment Noted Time PHQ-9 Depression Total Score: 12 021 12:38 PM CDT documented as of this encounter Care Teams Director Clinical Applications Relationship Specialty Start Date End Date Nancy Alvares FNP [address] [place] [address] PCP - General Nurse Practitioner Family 09/12/21 documented as of this encounter
--- OUTSIDE RECORDS SUMMARY | 2025-02-21 17:15 | XMS_ITS | Encounter Summary ---
Author Organization [facility] Address [address] [place] [address] Care Team Providers Care Parachute Crown Sewer Name Role Phone Nancy Alvares Primary Care Provider Encounter Details Date Type Department Care Team (Late Contact Info) Description 11/26/2023 MyChart Message Enc [facility] Medical Group Family & Internal Medicine [facility] [address] [place] [phone] Nancy Alvares FNP [address] [place], [place] [phone] Coughing Social History Tobacco Use Types Packs/Day [...] Gender Identity Female 12/23/2021 9:01 AM CLINICAL RESEARCH SPEC Sexual Orientation Straight 12/23/2021 9: 01 AM CLINICAL RESEARCH SPEC documented as of this encounter Progress Notes * KIANNA Denis - 11/26/2023 2:28 PM CST I will send it out but yes test for covid ICAL RESEARCH SPEC documented in this encounter Plan of Treatment Upcoming Encounters Date Type Department Care Team (Late st Contact Info) Description 03/13/2025 11:20 AM CDT Office Visit [facility] Family & Internal Medicine [address] [address] Nancy Alvares FNP [address] [place] [address] 09/20/2025 11:00 AM CDT Office Visit [facility] Family & Internal Medicine [address] [address] Nancy Alvares FNP [address] [place] [address] documented as of this encounter Visit Diagnoses Not on filedocumented in this encounter Additional Health Concerns Assessment Noted Time PHQ-9 Depression Total Score: 21 11/23/ 023 4:28 PM CLINICAL RESEARCH SPEC documented as of this encounter Care Teams Parachute Crown Sewer Relationship Specialty Start Date End Date Nancy Alvares FNP [address] [place] [address] PCP - General Nurse Practitioner Family 09/12/21 documented as of this encounter
--- OUTSIDE RECORDS SUMMARY | 2025-02-21 17:15 | XMS_ITS | Encounter Summary ---
Author Organization [facility] Address [address] [place] [address] Care Team Providers Care Processing Manager Name Role Phone Nancy Alvares Primary Care Provider [phone] Encounter Details Date Type Department Care Team (Late st Contact Info) Description 07/13/2022 MyChart Message Enc [facility] Family & Internal Medicine [facility] [address] [place] [address] Nancy Alvares FNP [address] [place], [place] [phone] Lorazepam Social History Tobacco Use Types Packs/Day [...] CDT Gender Identity Female 12/23/2021 9:01 AM HEALTH AND WELLNESS DIRECTOR Sexual Orientation Straight 12/23/2021 9: 01 AM HEALTH AND WELLNESS DIRECTOR documented as of this encounter Progress Notes * Kiley Jimenes MA - 07/13/2022 5:14 PM CDTFrom: Bijal Kyle To: Nancy Alvares Sent: 07/13/2022 12:13 PM CDT Subject: Lorazepam I had [facility] submit for my refill on my Lorazapam 0.5 MG that I take one every 8 hours and have always received 90 tablets for the month. I went to bead picker my refill on July 10 and it had the same instructions, but on was for 30 pills. Can you have Nancy send in an updated refill like the previous ones? Thank you, Chacho Kyle documented in this encounter Plan of Treatment Upcoming Encounters Date Type Department Care Team (Late st Contact Info) Description 03/13/2025 11:20 AM CDT Office Visit [facility] Family & Internal [address] [address] Nancy Alvares FNP [address] [place] [address] 09/20/2025 11:00 AM CDT Office Visit [facility] Internal [address] [address] Nancy Alvares FNP [address] [place] [address] documented as of this encounter Visit Diagnoses Not on filedocumented in this encounter Additional Health Concerns Assessment Noted Time PHQ-9 Depression Total Score: 12 021 12:38 PM CDT documented as of this encounter Care Teams Processing Manager Relationship Specialty Start Date End Date Nancy Alvares FNP [address] [place] [address] PCP - General Nurse Practitioner Family 09/12/21 documented as of this encounter
--- OUTSIDE RECORDS SUMMARY | 2025-02-21 17:15 | XMS_ITS | Encounter Summary ---
Author Organization [facility] Address [address] [place] [address] Phone Care Team Providers Care Merchandising Execution Manager Name Role Phone Kiran Garvey MD Primary Care Provider + [phone] Kiran Garvey MD Primary Care Provider + [phone] Lorena Taylor MD Primary Care Provider + [phone] Dante Olivarez Primary Care Provider [phone] Morro Doyle MD Primary Care Provider [phone] Nancy Alvares NP Primary Care Provider + [phone] Encounter Details Date Type Department Care Team (Latest Contact Info) Description 03/19/2015 Orders Only [facility] Scanning, Provider Social History Tobacco Use Types Packs/Day Years Used Date Smoking Tobacco: Never Assessed Comments Unknown Sex and Gender Information Value Date Recorded Sex Assigned at Not on file Legal Sex Female 9:09 PM CLIENT CARE REPRESENTATIVE Gender Identity Not on file Sexual Orientation [...] on filedocumented in this encounter Care Teams Merchandising Execution Manager Relationship Specialty Start Date End Date Kiran Garvey MD [address] [place] [address] PCP - General 02/26/17 01/25/19 Kiran Garvey MD [address] [place] [address] PCP - General 03/21/15 02/25/17 Lorena Taylor MD [address] [place] [address] PCP - General Family Practice 01/26/19 03/31/21 Dante Olivarez, PA [address] [place] [address] PCP - General Physician Deputy Sheriff Lieutenant 04/01/21 06/09/21 Morro Doyle MD [address] [facility] [address] [place] [address] PCP - General Internal Medicine 06/10/21 10/07/21 Nancy Alvares BRICK SIDING APPLICATOR [address] [place] [address] PCP - General Nurse Practitioner 10/08/21 documented as of this encounter
--- OUTSIDE RECORDS SUMMARY | 2025-02-21 17:15 | XMS_ITS | Encounter Summary ---
Author Organization [facility] Address [address] [place] [address] Phone Care Team Providers Care Sales Agent Business Services Name Role Phone Lorena Taylor MD Primary Care Provider + [phone] Dante Olivarez Primary Care Provider [phone] Morro Doyle MD Primary Care Provider [phone] Nancy Alvares NP Primary Care Provider + [phone] Encounter Details Date Type Department Care Team [...] on file Legal Sex Female 9:09 PM ENGINEERING PROFESSIONALS Gender Identity Not on file Sexual Orientation [...] on filedocumented in this encounter Care Teams Sales Agent Business Services Relationship Specialty Start Date End Date Lorena Taylor MD PCP - General Family Practice 01/26/19 03/31/21 Dante Olivarez, ALVERTO [address] [place] [address] PCP - General Physician Safety Person 04/01/21 06/09/21 Morro Doyle MD [address] [facility] [address] [place] [address] PCP - General Internal Medicine 06/10/21 10/07/21 Nancy Alvares, RODRICK [facility] [place] [address] PCP - General Nurse Practitioner 10/08/21 documented as of this encounter
--- OUTSIDE RECORDS SUMMARY | 2025-02-21 17:15 | XMS_ITS | Encounter Summary ---
Author Organization [facility] Address [address] [place] [address] Care Team Providers Care Extrusion Die Corrector Name Role Phone Nancy Alvares Primary Care Provider [phone] Encounter Details Date Type Department Care Team (Late st Contact Info) Description 03/16/2022 MyChart Message Enc [facility] Family & Internal Medicine [facility] [address] [place] [address] Nancy Alvares FNP [address] [place], [place] [phone] Left knee severe pain Social History Tobacco [...] CDT Gender Identity Female 12/23/2021 9:01 AM TRAFFIC LINE PAINTER Sexual Orientation Straight 12/23/2021 9: 01 AM TRAFFIC LINE PAINTER COVID-19 Exposure Response Date Recorded In the [...] Description 03/13/2025 11:20 AM CDT Office Visit [facility] Family & Internal [address] [address] Nancy Alvares FNP [address] [place] [address] 09/20/2025 11:00 AM CDT Office Visit [facility] Internal [address] [address] Nancy Alvares FNP [address] [place] [address] documented as of this encounter Visit Diagnoses Not on filedocumented in this encounter Additional Health Concerns Assessment Noted Time PHQ-9 Depression Total Score: 12 021 12:38 PM CDT documented as of this encounter Care Teams Extrusion Die Corrector Relationship Specialty Start Date End Date Nancy Alvares FNP [address] [place] [address] PCP - General Nurse Practitioner Family 09/12/21 documented as of this encounter
--- OUTSIDE RECORDS SUMMARY | 2025-02-21 17:15 | XMS_ITS | Encounter Summary ---
Author Organization [facility] Address [address] [place] [address] Phone Care Team Providers Care Insulation Cutter Name Role Phone Kiran Garvey MD Primary Care Provider + [phone] Kiran Garvey MD Primary Care Provider + [phone] Lorena Taylor MD Primary Care Provider + [phone] Dante Olivarez Primary Care Provider [phone] Morro Doyle MD Primary Care Provider [phone] Nancy Alvares NP Primary Care Provider + [phone] Encounter Details Date Type Department Care Team (Latest Contact Info) Description 02/27/2015 Orders Only [facility] Scanning, Provider Social History Tobacco Use Types Packs/Day Years Used Date Smoking Tobacco: Never Assessed Comments Unknown Sex and Gender Information Value Date Recorded Sex Assigned at Not on file Legal Sex Female 9:09 PM SYSTEMS REQUIREMENTS PLANNER Gender Identity Not on file Sexual [...] on filedocumented in this encounter Care Teams Insulation Cutter Relationship Specialty Start Date End Date Malench, Kiran E., MD [address] [place] [address] PCP - General 02/26/17 01/25/19 Kiran Garvey MD [address] [place] [address] PCP - General 03/21/15 02/25/17 Lorena Taylor MD [address] [place] [address] PCP - General Family Practice 01/26/19 03/31/21 Dante Olivarez PA [address] [place] [address] PCP - General Physician Television Writer 04/01/21 06/09/21 Morro Doyle MD [address] [facility] [address] [place] [address] PCP - General Internal Medicine 06/10/21 10/07/21 Nancy Alvares NP [address] [place] [address] [id number] PCP - General Nurse Practitioner 10/08/21 documented as of this encounter
--- OUTSIDE RECORDS SUMMARY | 2025-02-21 17:15 | XMS_ITS | Encounter Summary ---
Author Organization [facility] Address [address] [place] [address] Care Team Providers Care Laser Beam Color Scanner Operator Name Role Phone Nancy Alvares Primary Care Provider [phone] Encounter Details Date Type Department Care Team (Late Contact Info) Description 12/24/2021 [employer] Message Enc [facility] Family & Internal Medicine [address] [phone] [facility] Provider Appointment Reschedule Social History Tobacco Use [...] CDT Gender Identity Female 12/23/2021 9:01 AM CUMULATIVE EFFECTS ANALYST Sexual Orientation Straight 12/23/2021 9: 01 AM CUMULATIVE EFFECTS ANALYST documented as of this encounter Plan of Treatment Upcoming Encounters Date Type Department Care Team (Late Contact Info) Description 03/13/2025 11:20 AM CDT Office Visit [facility] Family & Internal [address] [phone] Nancy Alvares FNP [address] [place] [phone] 09/20/2025 11:00 AM CDT Office [facility] Family & Internal Medicine - [place] [address] [place] [address] Nancy Alvares FNP [address] [place] [address] documented as of this encounter Visit Diagnoses Not on filedocumented in this encounter Additional Health Concerns Infection Onset Date Last Indicated Resolved Time COVID-19 Confirmed 12/12/2021 12/12/2021 12:34 AM CUMULATIVE EFFECTS ANALYST Assessment Noted Time PHQ-9 Depression Total Score: 12 021 12:38 PM CDT documented as of this encounter Care Teams Laser Beam Color Scanner Operator Relationship Specialty Start Date End Date Nancy Alvares FNP [address] [place] [address] PCP - General Nurse Practitioner Family 09/12/21 documented as of this encounter
--- OUTSIDE RECORDS SUMMARY | 2025-02-21 17:15 | XMS_ITS | Encounter Summary ---
Author Organization [facility] Address [address] [place] [address] Care Team Providers Care Spring Inspector Name Role Phone Unavailable Primary Care Provider Unavailabl e Encounter Details Date Type Department Care Team (Late st Contact Info) Description 10/12/2024 Lab Requisition [facility] - DermPath Lab [address] [facility], [place] [address] Bharati Jason DO [address] [facility] [address]L [place] [address] Social History Tobacco Use Types Packs/Day Years [...] Diagnosis Comments DERMATOPATHOLOGY Routine 10/12/2024 2:07 PM SOCIAL MEDIA SR STRATEGY MANAGER documented in this encounter Results * DERMATOPATHOLOGY (10/12/2024 2:07 PM SOCIAL MEDIA SR STRATEGY MANAGER) Case Report Dermatopathology Report Case: [id number] Authorizing Provider: Bharati Jason DO Collected: 10/12/2024 02:07 PM Ordering Location: [facility] - Received: 10/13/2024 11:00 AM DermPath Lab Pathologist: Kerry Garcia MD Specimen: Skin, left medial cheek 4 12:27 PM SOCIAL MEDIA SR STRATEGY MANAGER DERMATOPATHOLOGY LABORATORY Final Diagnosis Specimen A. SKIN, left medial cheek: ACTINIC KERATOSIS (L57.0) 4 12:27 PM SOCIAL MEDIA SR STRATEGY MANAGER DERMATOPATHOLOGY LABORATORY Clinical History R/O BCC 12:27 PM [facility] DERMATOPATHOLOGY LABORATORY Gross Description Specimen A: Received is one formalin filled container labeled with the patient's name and designated left medial cheek. The specimen consists of a shave biopsy measuring 4x2x1 mm. Jar 0. 12:27 PM [facility] DERMATOPATHOLOGY LABORATORY Microscopic Description Specimen A. SKIN, left medial cheek: There is focal parakeratosis. The lower half of the epidermis shows disorderly maturation of keratinocytes with nuclear pleomorphism. 12:27 PM [facility] DERMATOPATHOLOGY LABORATORY Disclaimer An external and internal positive and negative controls are appropriate for the histochemical, immunohistochemical and immunofluorescence stain(s) in this case (if any), except where stated explicitly. The performance characteristics of the stain(s) cited in this report were developed and its performance characteristic determined by the Dermatopathology Laboratory at [facility], directed by Dr. Pebbles Leavitt. These tests need not be, and therefore are not, approved by the [place] Food and Drug Administration. The tests are used for clinical purposes. Billing Codes Specimen Charges Stain Charges 48699 1 12:27 PM [facility] DERMATOPATHOLOGY LABORATORY Embedded Images 12:27 PM [facility] DERMATOPATHOLOGY LABORATORY Pathology/Cytolo gy TISSUE SPECIMEN FROM SKIN / Unknown 10/12/2024 2:07 PM SOCIAL MEDIA SR STRATEGY MANAGER 10/13/2024 11:00 AM SOCIAL MEDIA SR STRATEGY MANAGER Bharati Jason DO LAB - PATHOLOGY/C YTOLOGY ORDERABLES DERMATOPATHOLOGY LABORATORY [facility] - Department of Dermatology [address], [address] [phone] documented in this encounter Visit Diagnoses Not on filedocumented in this encounter
--- OUTSIDE RECORDS SUMMARY | 2025-02-21 17:15 | XMS_ITS | Encounter Summary ---
Author Organization [facility] Address [address] [place] [address] Care Team Providers Care Instructional Support Assistant Name Role Phone Nancy Alvares Primary Care Provider [phone] Encounter Details Date Type Department Care Team (Late st Contact Info) Description 07/08/2023 soneshart Message Enc [facility] Family & Internal [address] [phone] Nancy Alvares FNP [address] [place] [address] Copy of updated insurance card Social History [...] CDT Gender Identity Female 12/23/2021 9:01 AM CYCLING INSTRUCTOR Sexual Orientation Straight 12/23/2021 9: 01 AM CYCLING INSTRUCTOR documented as of this encounter Plan of Treatment Upcoming Encounters Date Type Department Care Team (Late Contact Info) Description 03/13/2025 11:20 AM CDT Office Visit [facility] Family & Internal Medicine [address] [phone] Nancy Alvares FNP [address] [place] [address] [phone] 09/20/2025 11:00 AM CDT Office Visit [facility] Family & Internal Medicine - [address] [address] Nancy lAvares FNP [facility] [place] [address] documented as of this encounter Visit Diagnoses Not on filedocumented in this encounter Additional Health Concerns Assessment Noted Time PHQ-9 Depression Total Score: 12 021 12:38 PM CDT documented as of this encounter Care Teams Instructional Support Assistant Relationship Specialty Start Date End Date Nancy Alvares FNP [address] [place] [address] PCP - General Nurse Practitioner Family 09/12/21 documented as of this encounter
--- OUTSIDE RECORDS SUMMARY | 2025-02-21 17:15 | XMS_ITS | Encounter Summary ---
Author Organization [facility] Address [address] [place] [address] Care Team Providers Care Microwave Engineer Name Role Phone Nancy Alvares Primary Care Provider [phone] Encounter Details Date Type Department Care Team (Late Contact Info) Description 09/20/2024 [employer] Message Enc [facility] Family & Internal [address] [address] [place] Provider XR results Social [...] CDT Gender Identity Female 12/23/2021 9:01 AM LINOLEUM LAYER Sexual Orientation Straight 12/23/2021 9: 01 AM LINOLEUM LAYER documented as of this encounter Plan of Treatment Upcoming Encounters Date Type Department Care Team (Late Contact Info) Description 03/13/2025 11:20 AM CDT Office Visit [facility] Family & Internal [address] [address] Nancy Alvares FNP [address] [place] [address] [phone] 09/20/2025 11:00 AM CDT Office Visit [facility] Family & Internal Medicine - [address] [address] Nancy Alvares FNP [address] [place] [address] documented as of this encounter Visit Diagnoses Not on filedocumented in this encounter Additional Health Concerns Assessment Noted Time PHQ-9 Depression Total Score: 21 023 4:28 PM LINOLEUM LAYER documented as of this encounter Care Teams Microwave Engineer Relationship Specialty Start Date End Date Nancy Alvares FNP [address] [place] [address] PCP - General Nurse Practitioner Family 09/12/21 documented as of this encounter
--- OUTSIDE RECORDS SUMMARY | 2025-02-21 17:15 | XMS_ITS | Encounter Summary ---
Author Organization [facility] Address [address] [place] [address] Care Team Providers Care Customer Advisor Specialist Name Role Phone Nancy Alvares Primary Care Provider [phone] Encounter Details Date Type Department Care Team (Late st Contact Info) Description 11/09/2022 [employer] Message Enc [facility] Family & Internal [address] [phone] Nancy Alvares FNP [address] [place] [address] [phone] Bladder infection Social History Tobacco Use Types [...] CDT Gender Identity Female 12/23/2021 9:01 AM SENIOR PRINCIPAL SOFTWARE ENGINEER Sexual Orientation Straight 12/23/2021 9: 01 AM SENIOR PRINCIPAL SOFTWARE ENGINEER documented as of this encounter Plan of Treatment Upcoming Encounters Date Type Department Care Team (Late st Contact Info) Description 03/13/2025 11:20 AM CDT Office Visit [facility] Family & Internal [address] [phone] Nancy Alvares FNP [address] [place] [address] 09/20/2025 11:00 AM CDT Office Visit [facility] Group Family & Internal Medicine - [address] [phone] Nancy Alvares FNP [address] [place] [address] documented as of this encounter Visit Diagnoses Not on filedocumented in this encounter Additional Health Concerns Assessment Noted Time PHQ-9 Depression Total Score: 12 021 12:38 PM CDT documented as of this encounter Care Teams Customer Advisor Specialist Relationship Specialty Start Date End Date Nancy Alvares FNP [address] [place] [address] PCP - General Nurse Practitioner Family 09/12/21 documented as of this encounter
--- OUTSIDE RECORDS SUMMARY | 2025-02-21 17:15 | XMS_ITS | Clinical Summary ---
Author Organization [facility] Address [facility] [place] [address] Care Team Providers Care Mechanical Engineering Coop Name Role Phone Nicole Holt KIANNA Primary Care Provider [phone] Allergies No known active allergies Medications Aspirin-Acetamino [...] week. 12 capsule 3 10/12/20 24 Active HYDROcodone-chlor pheniramine ER (TUSSIONEX) 10-8 MG/5ML suspensionIndicat ions:Cough Take 2.5-5 mLs by mouth every 12 (twelve) hours as needed. Indications: Cough 115 mL 12/05/19 25 Active vitamin D2, ergocalciferol, (DRISDOL) 1.25 mg capsuleIndication s:Vitamin D deficiency TAKE 1 CAPSULE BY MOUTH EVERY 7 DAYS 12 capsule 12/15/19 25 Active indapamide (LOZOL) 2.5 MG tabletIndications :Essential hypertension TAKE 1 TABLET(2.5 MG) BY MOUTH TWICE DAILY 60 tablet 3 01/03/20 25 Active losartan (COZAAR) 50 MG tabletIndications :Essential hypertension TAKE 1 TABLET(50 MG) BY MOUTH DAILY 90 tablet 1 01/30/20 25 Active LORazepam (ATIVAN) 0.5 MG tabletIndications :Anxiety TAKE 1 TABLET BY MOUTH EVERY 8 HOURS NEEDED FOR ANXIETY 90 tablet 1 01/30/20 25 Active valACYclovir (VALTREX) 1 g tabletIndications :Cold sore TAKE 1 TABLET(1000 MG) BY MOUTH TWICE DAILY 8 tablet 1 02/03/20 25 Active losartan (COZAAR) 50 MG tabletIndications :Essential hypertension TAKE 1 TABLET(50 MG) BY MOUTH DAILY 90 tablet 11/03/20 24 025 Discontinued LORazepam (ATIVAN) 0.5 MG tabletIndications :Anxiety TAKE 1 TABLET BY MOUTH EVERY 8 HOURS NEEDED FOR ANXIETY 90 tablet 1 11/23/20 24 025 Discontinued valACYclovir (VALTREX) 1 g tabletIndications :Cold sore TAKE 1 TABLET(1000 MG) BY MOUTH TWICE DAILY 8 tablet 1 12/08/19 25 025 Discontinued Active Problems Problem Noted Date Diagnosed Date Flank pain 11/20/2022 Left upper quadrant abdominal pain 11/20/2022 Nausea 11/20/2022 Personal history of colonic polyps 11/16/2022 Overview (11/19/2022): Added automatically from request for surgery [id number] Family history of malignant neoplasm of gastrointestinal tract 11/16/2022 Overview (11/19/2022): Added automatically from request for surgery [id number] Folic acid deficiency 09/14/2022 History of Graves' [...] in adult 09/18/2021 Fibromyalgia 09/12/2021 Parkinson disease ([facility]) 06/10/2021 Overview (09/12/2021): Last Assessment & Plan: [...] 05/01/2015 Overview (09/12/2021): Mitral regurgitation Pulmonary hypertension ([facility]) 015 Overview (09/12/2021): Pulmonary hypertension Snoring 05/01/2015 Overview (09/12/2021): Snoring Anemia 02/16/2013 Resolved Problems Problem Noted Date Diagnosed Date Resolved Date Finger mass, left 09/04/2022 07/01/2023 Finger injury, right, sequela 09/18/2021 07/01/2023 Swelling of finger joint of right hand 09/18/2021 07/01/2023 SOB (shortness of breath) 04/08/2018 Encounters Date Type Department Care Team Description 02/21/[address] [address] Nicole Holt FNP Information; Advice 02/19/[address] [address] Nicole Holt FNP Appointment Request 02/14/2025 MyChart Message Enc [address] [address] Nicole Holt FNP Chronic cough 01/23/[address] [address] Nicole Holt FNP Radiology Results 01/22/2025 Telephone [facility] Internal [address] [address] Nicole Holt FNP Radiology Results 01/18/2025 Scan [facility] Scanned, [facility] Image (SCAN) 01/16/2025 Scan [facility] Scanned, [facility] 12/29/2024 Telephone [facility] Internal [address] [address] Nicole Holt FNP Radiology Results 12/29/2024 Travel 12/26/2024 MyChart Message Enc [facility] Internal [address] [address] Nicole Holt FNP Still sick 12/21/2024 MyChart Message Enc [facility] Internal [place] [address] [place] [address] Nicole Holt FNP Sick 12/19/2024 Scan [facility] Scanned, [facility] Endoscopy (SCAN); Colonoscopy Report (SCAN); Pathology (SCAN) 12/05/2024 Orders Only [address] [address] Nicole Holt FNP 12/04/2024 MyChart Message Enc [address] [address] Nicole Holt FNP Sick 11/24/2024 Scan [employer] [facility] Scanned, [facility] 11/23/[address] [address] Nicole Holt FNP Orders from Last 3 Months Immunizations Name Administration [...] CDT Gender Identity Female 12/23/2021 9:01 AM FISCAL OFFICER Sexual Orientation Straight 12/23/2021 9: 01 AM FISCAL OFFICER Last Filed Vital Signs Vital Sign Reading [...] 09/19/2024 3:28 PM CDT Plan of Treatment Upcoming Encounters Date Type Department Care Team (Late st Contact Info) Description 03/13/2025 11:20 AM CDT Office Visit [facility] [address] [address] Nicole Holt FNP [address] [place] [address] 09/20/2025 11:00 AM CDT Office Visit [facility] [address] [address] Nicole Holt FNP [address] [place] [address] Health Maintenance Due Date Last Done Comments Annual Physical 1968 Zoster Vaccines (1 of 2) 2014 RSV Immunization or 60+ Years (1 - Risk 60-74 years 1-dose series) 2024 PHQ-2 (Physician [place]) 11/29/2024 03/17/2024 COVID-19 Vaccine ( season) 2025 [...] Procedure Name Priority Date/Time Associated Diagnosis Comments IMAGE GENERIC 01/18/2025 XR CHEST PA+LAT Routine 12/29/2024 11:09 AM FISCAL OFFICER Chest tightness PATHOLOGY GENERIC (SCAN ORDER) 12/19/2024 [...] Recently Relevant to Health Maintenance Results * IMAGE GENERIC (01/18/2025) Anatomical Region Laterality Modality Other 01/18/2025 [facility] Scanned SCANNING Final Resu lt * XR CHEST PA+LAT (12/29/2024 11:09 AM FISCAL OFFICER) Anatomical Region Laterality Modality Chest Radiographic Phuong ging 12/29/2024 11:2 5 AM FISCAL OFFICER Impressions 12/29/2024 11:26 AM FISCAL OFFICER IMPRESSION: No radiographic evidence of active chest disease. Ordered By: NICOLE HOLT Interpreted By: Thaddeus Palma MD, 12/29/2024 11:25 AM Narrative 12/29/2024 11:26 AM FISCAL OFFICER [facility] Internal [facility] [place] [address] Examination: XR CHEST PA+LAT Exam time: 12/29/2024 11:05 AM Clinical history: Cough. Congestion. Comparison: No prior exam Technique: Upright PA and lateral views Findings: Excellent and pulmonary vasculature are within normal limits. Lungs appear clear. No evidence of pleural effusion. No evidence of bronchial wall thickening or abnormal pulmonary interstitium. Procedure Note Thaddeus Palma MD - 12/29/2024 [facility] and Internal [facility] [place] [address] Examination: XR CHEST PA+LAT Exam time: 12/29/2024 [...] Thaddeus Palma MD, 12/29/2024 11:25 AM Result [facility] Nicole Holt DEPUTY DIRECTOR GENERAL IMAGING Final Result * PATHOLOGY GENERIC [...] VE NON-REACT VALENTIN 09/04/2022 6:29 PM CDT [facility] Comment: ANTIBODIES TO HCV NOT DETECTED. DOES NOT EXCLUDE THE POSSIBILITY OF EXPOSURE TO HCV. 09/04/2022 9:42 AM CDT Nicole [facility] Final Result [facility] [address] [place] [address], [id number] from Last 3 Months or Most Recently Relevant to Health Maintenance Insurance Care Teams Mechanical Engineering [employer] Relationship Specialty Start Date End Date Nicole Holt FNP [address] [place], [place] [phone] PCP - General Nurse Practitioner Family 09/12/21
--- OUTSIDE RECORDS SUMMARY | 2025-02-21 17:15 | XMS_ITS | Encounter Summary ---
Author Organization [facility] Address [address] [place] [address] Care Team Providers Care Manager Center Name Role Phone Nancy Alvares Primary Care Provider Encounter Details Date Type Department Care Team (Late st Contact Info) Description 02/18/2022 MyChart Message Enc [facility] Family & Internal Medicine [facility] [address] [place] [address] Nancy Alvares FNP [address] [place], [place] [phone] Bladder infection Social History Tobacco Use Types [...] Gender Identity Female 12/23/2021 9:01 AM RN BSN Sexual Orientation Straight 12/23/2021 9: 01 AM RN BSN COVID-19 Exposure Response Date Recorded In the [...] Visit [facility] Family & Internal [address] [address] Nancy Alvares FNP [address] [place] [address] 09/20/2025 11:00 AM CDT Office Visit [facility] Family & Internal [address] [address] Nancy Alvares FNP [address] [place] [address] documented as of this encounter Visit Diagnoses Not on filedocumented in this encounter Additional Health Concerns Assessment Noted Time PHQ-9 Depression Total Score: 12 021 12:38 PM CDT documented as of this encounter Care Teams Manager Center Relationship Specialty Start Date End Date Nancy Alvares FNP [address] [place] [address] PCP - General Nurse Practitioner Family 09/12/21 documented as of this encounter
[2025-02-21 19:24] LABS: Folic Acid > 20.0 ng/mL (2.76->20)
== END 2025-02-21 16:31 | disposition home or self-care (01) ==
LOC: ANHLAB 16:33
PROVIDERS: PCP Nurse Practitioner Family; Visit Provider Nurse Practitioner Family
DX: R25.2 Cramp and spasm (principal)
CPT/HCPCS: 36415; 80053; 81001; 82607; 82746; 83735; 85025; 87086

== ENCOUNTER 2025-02-27 15:41 | Outpatient (CLI) | payer BC, SELFPAY ==
--- NOTE | ~2025-02-27 | MR_ITS ---
EXAMINATION: MR brain/brain stem wo con DATE: 02/27/2025 16:23 INDICATION: Paresthesias of skin TECHNIQUE: Magnetic resonance imaging (MRI) of the brain and brainstem was performed without intraven ous contrast. Sequences included sagittal and axial T1-weighted SE, axial diffusion-weighted FS SE, a xial 3D SWAN, axial T2-weighted FLAIR, and axial T2-weighted FSE. Postcontrast axial and coronal T1-w eighted SE was obtained. Apparent diffusion coefficient (ADC) maps were created. COMPARISON: 11/02/2023 FINDINGS: There are no areas of restricted diffusion to suggest acute infarction. No intracranial hemorrhage or abnormal intracranial mass lesion. No interval change in a few small foci of nonspecific increased T 2 weighted white matter signal intensity in the left parietal and bilateral frontal lobes which is wi thin normal chest for age and likely sequela of chronic small vessel ischemic disease. There are no i ntraparenchymal signal abnormalities seen on the other pulse sequences. The ventricles are symmetric and normal in size. There are no abnormal extra-axial fluid collections. Flow voids are seen in the c erebral arteries on the T2-weighted sequences consistent with their expected patency. Visualized orbi ts and soft tissues are unremarkable. IMPRESSION: 1. Stable appearance of normal aging brain. Reviewed, dictated and finalized at location A.
--- OUTSIDE RECORDS SUMMARY | 2025-02-27 17:11 | XMS_ITS | Encounter Summary ---
Author Organization [facility] Address [address] [place] [address] Care Team Providers Care Crane Rigger Name Role Phone Nancy Alvares Primary Care Provider Encounter Details Date Type Department Care Team (Late st Contact Info) Description 11/09/2022 Familiarhart Message Enc [facility] Family & Internal [address] [address] Nancy Alvares FNP [address] [place] [address] [phone] Bladder infection Social History Tobacco Use Types [...] CDT Gender Identity Female 12/23/2021 9:01 AM TRUSS DESIGNER Sexual Orientation Straight 12/23/2021 9: 01 AM TRUSS DESIGNER documented as of this encounter Plan of Treatment Upcoming Encounters Date Type Department Care Team (Late st Contact Info) Description 02/28/2025 9:40 AM CDT Allied Health/Nurse Visit [facility] Family & Internal Medicine [address] [phone] Nancy Alvares FNP [address] [place] [address] 03/13/2025 11:20 AM CDT Office Visit [facility] Family & Internal [address] [address] Nancy Alvares FNP [address] [place] [address] 09/20/2025 11:00 AM CDT Office Visit [facility] Family & Internal [address] [address] Nancy Alvares FNP [address] [place] [address] documented as of this encounter Visit Diagnoses Not on filedocumented in this encounter Additional Health Concerns Assessment Noted Time PHQ-9 Depression Total Score: 12 021 12:38 PM CDT documented as of this encounter Care Teams Crane Rigger Relationship Specialty Start Date End Date Nancy Alvares FNP [address] [place] [address] PCP - General Nurse Practitioner Family 09/12/21 documented as of this encounter
--- OUTSIDE RECORDS SUMMARY | 2025-02-27 17:11 | XMS_ITS | Encounter Summary ---
Author Organization [facility] Address [address] [place] [address] Phone Care Team Providers Care Tar Kettle Runner Name Role Phone Morro Doyle MD Primary Care Provider [phone] Nancy Alvares NP Primary Care Provider + [phone] Encounter Details Date Type Department Care Team [...] on file Legal Sex Female 9:09 PM KNIFER UP Gender Identity Not on file Sexual Orientation [...] on filedocumented in this encounter Care Teams Tar Kettle Runner Relationship Specialty Start Date End Date Morro Doyle MD [address] [place] [address] PCP - General Internal Medicine 06/10/21 10/07/21 Nancy Alvares NP [address] [place] [address] PCP - General Nurse Practitioner 10/08/21 documented as of this encounter
--- OUTSIDE RECORDS SUMMARY | 2025-02-27 17:11 | XMS_ITS | Encounter Summary ---
Author Organization [facility] Address [address] [place] [address] Phone Care Team Providers Care Stockroom Associate Name Role Phone Kiran Garvey MD Primary Care Provider + [phone] Kiran Garvey MD Primary Care Provider + [phone] Lorena Taylor MD Primary Care Provider + [phone] Dante Olivarez Primary Care Provider [phone] Morro Doyle MD Primary Care Provider [phone] Nancy Alvares NP Primary Care Provider + [phone] Encounter Details Date Type Department Care Team (Latest Contact Info) Description 02/11/2004 Orders Only [facility] Scanning, Provider Social History Tobacco Use Types Packs/Day Years Used Date Smoking Tobacco: Never Assessed Comments Unknown Sex and Gender Information Value Date Recorded Sex Assigned at Not on file Legal Sex Female 9:09 PM VENDETTE Gender Identity Not on file Sexual Orientation [...] on filedocumented in this encounter Care Teams Stockroom Associate Relationship Specialty Start Date End Date Malench, Kiran E., MD [address] [place] [address] PCP - General 02/26/17 01/25/19 Kiran Garvey MD [address] [place] [address] PCP - General 03/21/15 02/25/17 Lorena Taylor MD [address] [place] [address] PCP - General Family Practice 01/26/19 03/31/21 Dante Olivarez PA [address] [place] [address] PCP - General Physician Major Assembly Inspector 04/01/21 06/09/21 Morro Doyle MD [address] [facility] [address] [place] [address] PCP - General Internal Medicine 06/10/21 10/07/21 Nancy Alvares NP [address] [place] [address] [phone] PCP - General Nurse Practitioner 10/08/21 documented as of this encounter
--- OUTSIDE RECORDS SUMMARY | 2025-02-27 17:11 | XMS_ITS | Encounter Summary ---
Author Organization [facility] Address [address] [place] [address] Phone Care Team Providers Care Composition Worker Name Role Phone Kiran Garvey MD Primary Care Provider + [phone] Kiran Garvey MD Primary Care Provider + [phone] Lorena Taylor MD Primary Care Provider + [phone] Dante Olivarez Primary Care Provider [phone] Morro Doyle MD Primary Care Provider [phone] Nancy Alvares NP Primary Care Provider + [phone] Encounter Details Date Type Department Care Team (Latest Contact Info) Description 10/26/2006 Orders Only [facility] Scanning, Provider Social History Tobacco Use Types Packs/Day Years Used Date Smoking Tobacco: Never Assessed Comments Unknown Sex and Gender Information Value Date Recorded Sex Assigned at Not on file Legal Sex Female 9:09 PM MRI MANAGER Gender Identity Not on file Sexual [...] on filedocumented in this encounter Care Teams Composition Worker Relationship Specialty Start Date End Date Malench, Kiran E., MD [address] [place] [place] [address] PCP - General 02/26/17 01/25/19 Kiran Garvey MD [address] [place] [address] PCP - General 03/21/15 02/25/17 Lorena Taylor MD [address] [place] [place] [address] PCP - General Family Practice 01/26/19 03/31/21 Dante Olivarez PA [address] [place] [address] PCP - General Physician Telecommunications Line Installer 04/01/21 06/09/21 Morro Doyle MD [address] [facility] [address] [place] [address] PCP - General Internal Medicine 06/10/21 10/07/21 Nancy Alvares NP [address] [place] [phone] PCP - General Nurse Practitioner 10/08/21 documented as of this encounter
--- OUTSIDE RECORDS SUMMARY | 2025-02-27 17:11 | XMS_ITS | Encounter Summary ---
Author Organization [facility] Address [address] [place] [address] Care Team Providers Care Barrer And Tacker Name Role Phone Nancy Alvares Primary Care Provider [phone] Encounter Details Date Type Department Care Team (Late st Contact Info) Description 07/08/2023 Dazzling Beauty Groupt Message Enc [facility] Family & Internal [address] [phone] Nancy Alvares FNP [address] [place] [address] [phone] Copy of updated insurance card Social History [...] CDT Gender Identity Female 12/23/2021 9:01 AM INDUSTRIAL TECHNOLOGY TEACHER Sexual Orientation Straight 12/23/2021 9: 01 AM INDUSTRIAL TECHNOLOGY TEACHER documented as of this encounter Plan of Treatment Upcoming Encounters Date Type Department Care Team (Late st Contact Info) Description 02/28/2025 9:40 AM CDT Allied Health/Nurse Visit [facility] Family & Internal [address] [phone] Nancy Alvares FNP [address] [place] [address] 03/13/2025 11:20 AM CDT Office Visit [facility] Family & Internal Medicine [address] [address] Nancy Alvares FNP [address] [place] [address] 09/20/2025 11:00 AM CDT Office Visit [facility] Family & Internal [address] [address] Nancy Alvares FNP [address] [place] [address] documented as of this encounter Visit Diagnoses Not on filedocumented in this encounter Additional Health Concerns Assessment Noted Time PHQ-9 Depression Total Score: 12 021 12:38 PM CDT documented as of this encounter Care Teams Barrer And Tacker Relationship Specialty Start Date End Date Nancy Alvares FNP [address] [place] [address] PCP - General Nurse Practitioner Family 09/12/21 documented as of this encounter
--- OUTSIDE RECORDS SUMMARY | 2025-02-27 17:11 | XMS_ITS | Encounter Summary ---
Author Organization [facility] Address [address] [place] [address] Care Team Providers Care Patient'S Librarian Name Role Phone Nancy Alvares Primary Care Provider [phone] Reason for Visit * Reason Onset Date Comments Lab Results 02/26/2025 Alejandro lab res ults 02/21/25 Encounter Details Date Type Department Care Team (Late st Contact Info) Description 02/26/2025 Telephone [facility] Family & Internal Medicine [place] [address] [place] [address] Nancy Alvares FNP [facility] [place] [address] Lab Results (Alejandro lab results 02/21/25) Social History Tobacco Use Types Packs/Day Years [...] CDT Gender Identity Female 12/23/2021 9:01 AM YEAST MAKER Sexual Orientation Straight 12/23/2021 9: 01 AM YEAST MAKER documented as of this encounter Progress Notes * Radha Hendricks MA - 02/26/2025 11:36 AM CDT Patient informed and v/u Radha Hendricks MA * Radha Hendricks MA - 02/26/2025 11:34 AM CDT Per faxed lab results- Nancy wants patient to drink more water/gatorade to keep hydrated and the other labs look okay- documented in this encounter Plan of Treatment Upcoming Encounters Date Type Department Care Team (Late st Contact Info) Description 02/28/2025 9:40 AM CDT Allied Health/Nurse Visit [facility] Family & Internal [address] [address] Nancy Alvares FNP [address] [place] [address] 03/13/2025 11:20 AM CDT Office Visit [facility] Family & Internal [address] [address] Nancy Alvares FNP [address] [place] [address] 09/20/2025 11:00 AM CDT Office Visit [facility] Internal [address] [address] Nancy Alvares FNP [address] [place] [address] documented as of this encounter Visit Diagnoses Not on filedocumented in this encounter Additional Health Concerns Assessment Noted Time PHQ-9 Depression Total Score: 21 023 4:28 PM YEAST MAKER documented as of this encounter Care Teams Patient'S Librarian Relationship Specialty Start Date End Date Nancy Alvares FNP [address] [place] [address] PCP - General Nurse Practitioner Family 09/12/21 documented as of this encounter
--- OUTSIDE RECORDS SUMMARY | 2025-02-27 17:11 | XMS_ITS | Encounter Summary ---
Author Organization [facility] Address [address] [facility] [place] [address] Care Team Providers Care Tongue And Groove Machine Setter Name Role Phone Unavailable Primary Care Provider Unavailabl e Encounter Details Date Type Department Care Team (Late st Contact Info) Description 10/12/2024 Lab Requisition [facility] - DermPath Lab [address] [facility], [place] [address] Bharati Jason DO [address] [facility] [address] [place] [address] Social History Tobacco Use Types Packs/Day Years [...] Diagnosis Comments DERMATOPATHOLOGY Routine 10/12/2024 2:07 PM THERMOMETER PRODUCTION WORKER documented in this encounter Results * DERMATOPATHOLOGY (10/12/2024 2:07 PM THERMOMETER PRODUCTION WORKER) Case Report Dermatopathology Report Case: [id number] Authorizing Provider: Bharati Jason DO Collected: 10/12/2024 02:07 PM Ordering Location: [facility] - Received: 10/13/2024 11:00 AM DermPath Lab Pathologist: Kerry Garcia MD Specimen: Skin, left medial cheek 4 12:27 PM THERMOMETER PRODUCTION WORKER DERMATOPATHOLOGY LABORATORY Final Diagnosis Specimen A. SKIN, left medial cheek: ACTINIC KERATOSIS (L57.0) 4 12:27 PM THERMOMETER PRODUCTION WORKER DERMATOPATHOLOGY LABORATORY Clinical History R/O BCC 12:27 PM [facility] DERMATOP[facility]Y [facility]ORATORY Gross Description Specimen A: Received is one formalin filled container labeled with the patient's name and designated left medial cheek. The specimen consists of a shave biopsy measuring 4x2x1 mm. Jar 0. 12:27 PM [facility] DERMATOPATHOLOGY LABORATORY Microscopic Description Specimen A. SKIN, left medial cheek: There is focal parakeratosis. The lower half of the epidermis shows disorderly maturation of keratinocytes with nuclear pleomorphism. 12:27 PM [facility] DERMATOPATHOLOGY LABORATORY Disclaimer An external and internal positive and negative controls are appropriate for the histochemical, immunohistochemical and immunofluorescence stain(s) in this case (if any), except where stated explicitly. The performance characteristics of the stain(s) cited in this report were developed and its performance characteristic determined by the Dermatopathology Laboratory at [facility], directed by Dr. Pebbles Leavitt. These tests need not be, and therefore are not, approved by the [place] Food and Drug Administration. The tests are used for clinical purposes. Billing Codes Specimen Charges Stain Charges 91139 1 12:27 PM [facility] DERMATOPATHOLOGY LABORATORY Embedded Images 12:27 PM [facility] DERMATOPATH[facility]Y [facility]ORATORY Pathology/Cytolo gy TISSUE SPECIMEN FROM SKIN / Unknown 10/12/2024 2:07 PM THERMOMETER PRODUCTION WORKER 10/13/2024 11:00 AM THERMOMETER PRODUCTION WORKER Bharati Jason DO LAB - PATHOLOGY/C YTOLOGY ORDERABLES DERMATOPATHOLOGY LABORATORY [facility] - Department of Dermatology [address], [address] [phone] documented in this encounter Visit Diagnoses Not on filedocumented in this encounter
--- OUTSIDE RECORDS SUMMARY | 2025-02-27 17:11 | XMS_ITS | Encounter Summary ---
Author Organization [facility] Address [address] [place] [address] Care Team Providers Care Telegraph Service Clerk Name Role Phone Nancy Alvares Primary Care Provider [phone] Encounter Details Date Type Department Care Team (Late st Contact Info) Description 02/18/2022 MyChart Message Enc [facility] Medical Group Family & Internal Medicine [facility] [address] [place] [address] Nancy Alvares FNP [address] [place], [place] [id number] Bladder infection Social History Tobacco Use Types [...] CDT Gender Identity Female 12/23/2021 9:01 AM PLANT MAINTENANCE TECHNICIAN Sexual Orientation Straight 12/23/2021 9: 01 AM PLANT MAINTENANCE TECHNICIAN COVID-19 Exposure Response Date Recorded In the [...] 02/28/2025 9:40 AM CDT Allied Health/Nurse Visit [facility] Family & Internal [address] [address] Nancy Alvares, BAILIFF [address] [place] [address] 03/13/2025 11:20 AM CDT Office Visit [facility] Family & Internal [address] [address] Nancy Alvares FNP [address] [place] [address] 09/20/2025 11:00 AM CDT Office Visit [facility] Internal [address] [address] Nancy Alvares FNP [address] [place] [address] documented as of this encounter Visit Diagnoses Not on filedocumented in this encounter Additional Health Concerns Assessment Noted Time PHQ-9 Depression Total Score: 12 021 12:38 PM CDT documented as of this encounter Care Teams Telegraph Service Clerk Relationship Specialty Start Date End Date Nancy Alvares FNP [address] [place] [address] PCP - General Nurse Practitioner Family 09/12/21 documented as of this encounter
--- OUTSIDE RECORDS SUMMARY | 2025-02-27 17:11 | XMS_ITS | Encounter Summary ---
Author Organization [facility] Address [address] [place] [address] Care Team Providers Care Mud Engineer Name Role Phone Nancy Alvares Primary Care Provider [phone] Encounter Details Date Type Department Care Team (Latest Contact Info) Description 09/22/2022 [employer] Message Enc [facility] Medical Group Family & Internal Medicine [facility] [address] [place] [address] Nancy Alvares FNP [address] [place], [place] [phone] Call Center Operator Referral Social History Tobacco Use Types Packs/Day [...] CDT Gender Identity Female 12/23/2021 9:01 AM CHECK WEIGHER Sexual Orientation Straight 12/23/2021 9: 01 AM CHECK WEIGHER COVID-19 Exposure Response Date Recorded In the [...] 02/28/2025 9:40 AM CDT Allied Health/Nurse Visit [facility] Family & Internal [address] [address] Nancy Alvares FNP [address] [place] [address] 03/13/2025 11:20 AM CDT Office Visit [facility] Internal [address] [address] Nancy Alvares FNP [address] [place] [address] 09/20/2025 11:00 AM CDT Office Visit [facility] Internal [address] [address] Nancy Alvares FNP [address] [place] [address] documented as of this encounter Visit Diagnoses Not on filedocumented in this encounter Additional Health Concerns Assessment Noted Time PHQ-9 Depression Total Score: 12 021 12:38 PM CDT documented as of this encounter Care Teams Mud Engineer Relationship Specialty Start Date End Date Nancy Alvares FNP [address] [place] [address] PCP - General Nurse Practitioner Family 09/12/21 documented as of this encounter
--- OUTSIDE RECORDS SUMMARY | 2025-02-27 17:11 | XMS_ITS | Encounter Summary ---
Author Organization [facility] Address [address] [place] [address] Care Team Providers Care Supervisor Wall Mirror Department Name Role Phone Nancy Alvares Primary Care Provider [phone] Encounter Details Date Type Department Care Team (Late st Contact Info) Description 02/26/2025 MyChart Message Enc [facility] Medical Group Family & Internal Medicine [facility] [address] [place] [address] Nancy Alvares FNP [address] [place], [place] [phone] Bladder Infection Social History Tobacco Use Types Packs/Day Years [...] CDT Gender Identity Female 12/23/2021 9:01 AM NONPROFIT MANAGER Sexual Orientation Straight 12/23/2021 9: 01 AM NONPROFIT MANAGER documented as of this encounter Progress Notes * Radha Hendricks MA - 02/27/2025 4:43 PM CDT Lab order- RX sent Patient informed v/u she will be in tomorrow to leave a sample before she starts her antibiotic * KIANNA Denis - 02/27/2025 1:35 PM CDT We can send out macrobid 100 mg bid x 7d but I would really like to send a UA first. documented in this encounter Plan of Treatment Upcoming Encounters Date Type Department Care Team (Late st Contact Info) Description 02/28/2025 9:40 AM CDT Allied Health/Nurse Visit [facility] Family & Internal [address] [address] Nancy Alvares [address] [address] 03/13/2025 11:20 AM CDT Office Visit [address] [address] Nancy Alvares [address] [address] 09/20/2025 11:00 AM CDT Office Visit [facility] Internal [address] [address] Nancy Alvares [address] [address] Scheduled Orders Name Type Priority Associated Diagnoses Orde r Schedule URINALYSIS Lab Routine Dysuria Frequent urination Expected: 02/27/2025, Expires: 02/27/2026 URINE BACTERIA CULTURE Microbiology Routine Dysuria Frequent urination Expected: 02/27/2025, Expires: 02/27/2026 documented as of this encounter Visit Diagnoses Diagnosis Dysuria- Primary Frequent urination Urinary frequency documented in this encounter Additional Health Concerns Assessment Noted Time PHQ-9 Depression Total Score: 21 12/2 023 4:28 PM NONPROFIT MANAGER documented as of this encounter Care Teams Supervisor Wall Mirror Department Relationship Specialty Start Date End Date Nancy Alvares FNP [address] [place] [address] PCP - General Nurse Practitioner Family 09/12/21 documented as of this encounter
--- OUTSIDE RECORDS SUMMARY | 2025-02-27 17:11 | XMS_ITS | Clinical Summary ---
Author Organization [facility] [address] Address [address] [place] [address] Care Team Providers Care New Vehicle Sales Consultant Name Role Phone Nancy Alvares NP Primary Care Provider Allergies No known active allergies Medications losartan (COZAAR) 50 mg tablet take 1 tablet by oral route every day 0 0 5 Active aspirin-acetaminop hen-caffeine (EXCEDRIN EXTRA STRENGTH) 250-250-65 [...] Active Symbicort 80-4.5 mcg/actuation inhaler 1 Active HYDROcodone-chlorp heniramine ER (TUSSIONEX PENNKINETIC) 2-1.6 mg/mL ER suspension Take 2.5 mL by mouth every 12 (twelve) hours as needed 1 Active ondansetron (ZOFRAN) 4 mg tablet TAKE 1 TABLET BY MOUTH EVERY 6 HOURS NEEDED FOR NAUSEA OR VOMITING 1 Active folic acid (FOLVITE) 1 mg tablet 2 Active Ciprodex otic suspension 3 Active methylPREDNISolone (MEDROL DOSEPACK) 4 mg Dosepack 3 Active methylPREDNISolone (MEDROL) 4 mg tablet 3 Active omeprazole (PriLOSEC) 40 mg capsule TAKE 1 CAPSULE(40 MG) BY MOUTH DAILY 30 capsule 11 4 Active cholecalciferol (VITAMIN D-3) 50,000 unit capsule Take 1 capsule (50,000 Units total) by mouth once a week 4 Active fluticasone propionate (FLONASE) 50 mcg/actuation nasal spray Administer 2 sprays into affected nostril(s) daily 3 Active omeprazole (PriLOSEC) 40 mg capsule Take 1 capsule (40 mg total) by mouth 2 (two) times a day 60 capsule 11 5 Active ondansetron ODT (ZOFRAN-ODT) 4 mg disintegrating tablet 5 Active albuterol HFA (PROVENTIL HFA,VENTOLIN HFA,PROAIR HFA) 90 mcg/actuation inhaler INHALE 1-2 PUFFS BY MOUTH EVERY 4-6 HOURS NEEDED SHORTNESS OF BREATH 5 Active pramipexole (MIRAPEX) 0.25 mg tabletIndications: Parkinson disease (HCC) Take 1 tablet (0.25 mg total) by mouth 3 (three) times a day 270 tablet 1 5 025 Active Active Problems Problem Noted Date Diagnosed Date Epigastric pain 10/12/2024 Abdominal pain 10/12/2024 Left carotid bruit 10/03/2024 Personal history of colonic polyps 11/16/2022 Overview (11/16/2022): Added automatically from request for surgery [id number] Family history of malignant neoplasm of gastrointestinal tract 11/16/2022 Overview (11/16/2022): Added automatically from request for surgery [id number] Parkinson disease 06/10/2021 Assessment & Plan (11/18/2021 4:42 PM LABOR CONCILIATOR): Patient continues at this time on pramipexole [...] Department Care Team Description 01/26/2025 4:00 PM LABOR CONCILIATOR Office Visit [facility] Medical Group Neurology [address] [place] [address] [address] [place] [address] Marlin Kirkland NP Parkinson disease (HCC) (Primary Dx); Paresthesia of skin; Memory disturbance 12/22/2024 Telephone [facility] Gastroenterology [address] [facility] [address] [place] [address] Ayanna Venegas, DEVIN GI path results 12/19/2024 8:43 AM LABOR CONCILIATOR Anesthesia Event [facility] Endoscopy [address] [place] [address] Grupo Orozco MD Boyle, Christine Michelle, SHIPPING AND RECEIVING 12/19/2024 8:30 AM LABOR CONCILIATOR - 12/19/2024 9:00 AM LABOR CONCILIATOR Surgery [facility] Endoscopy [address] [place] [address] Catrachito Link MD COLON BIOPSY 12/19/2024 7:11 AM LABOR CONCILIATOR - 12/19/2024 10:15 AM LABOR CONCILIATOR Hospital Encounter [facility] Endoscopy [address] [place] [address] Catrachito Link MD Epigastric pain; Abdominal pain Discharge Disposition: Discharge to home or self care 12/04/2024 Telephone [facility] Gastroenterology [address] [facility] [address], [address] [place] [address] Bailey Merrill, DEVIN Reschedule from Last 3 Months Surgical History [...] Grandfather Hisea Paternal Grandmother Sister 1 Maryjane Amanday Sister 2 Maryjane Alive Social History Tobacco [...] on file Legal Sex Female 9:09 PM LABOR CONCILIATOR Gender Identity Not on file Sexual Orientation Not on file Obstetrics History Last Filed Vital Signs Vital Sign Reading Time Taken Comments Blood Pressure 119/79 01/26/2025 3:50 PM LABOR CONCILIATOR Pulse 93 01/26/2025 3:50 PM LABOR CONCILIATOR Temperature 36.3 C (97.3 F) 12/19/2024 9:15 AM LABOR CONCILIATOR Respiratory Rate 20 01/26/2025 3:50 PM LABOR CONCILIATOR Oxygen Saturation 97% 01/26/2025 3:50 PM LABOR CONCILIATOR Inhaled Oxygen Concentration - - Weight 90.7 kg (200 lb) 01/26/2025 3:50 PM LABOR CONCILIATOR Height 167.6 cm (5' 6 ) 01/26/2025 3:50 PM LABOR CONCILIATOR Body Mass Index 32.28 01/26/2025 3:50 PM LABOR CONCILIATOR Plan of Treatment Scheduled Procedures Name Priority [...] Associated Diagnosis Comments COLONOSCOPY 12/19/2024 8:53 AM LABOR CONCILIATOR SURGICAL PATHOLOGY Routine 12/19/2024 8:51 AM LABOR CONCILIATOR Epigastric pain Abdominal pain ESOPHAGOGASTRODUODENOSCOPY BIOPSY 12/19/2024 8:43 AM LABOR CONCILIATOR Epigastric pain Abdominal pain COLON BIOPSY 12/19/2024 8:43 AM LABOR CONCILIATOR Epigastric pain Abdominal pain EGD 12/19/2024 8:41 AM LABOR CONCILIATOR from Last 3 Months Results * Colonoscopy (12/19/2024 8:53 AM LABOR CONCILIATOR) Anatomical Region Laterality Modality Other Narrative Procedure Note Catrachito Link MD - 12/19/2024 8:53 AM CST ENDOSCOPY LAB Patient Name: Bijal Douglas Procedure Date: 12/19/2024 8:53 AM Date of : 1965 Admit Type: Outpatient Age: 59 Gender: Female Attending MD: Catrachito Link M.D. Room: [facility] ENDOSCOPY ROOM 04 Note Status: Finalized Procedure: Colonoscopy Indications: Abdominal pain, FH colon cancer Providers: Catrachito Link M.D. Referring MD: Eamon AlyNVinh Medicines: Monitored Anesthesia Care Complications: No immediate [...] The scope was passed under direct vision.The [id number] was introduced through the anusand advanced to [...] Final * Surgical pathology (12/19/2024 8:51 AM LABOR CONCILIATOR) Tissue (Gastric/Stomach biopsy) 12/19/2024 8:51 AM LABOR CONCILIATOR Tissue (Polyp(s), colon/colorectal, esophageal, gastric) 12/19/2024 9:04 AM LABOR CONCILIATOR Narrative PATHOLOGY [facility] - 12/21/2024 1:46 PM LABOR CONCILIATOR EPIC results best viewed via link to PDF [facility] [place] [address] Note to Patients: This report may contain [...] Gender: F : 1965 (Age: 59) Address: [address] [place], [place] [address] Hospital #: [id number] Taken:12/19/2024 Received:12/19/2024 Reported: 12/21/2024 Patient Type: [facility] EP SAME Client [facility] Service: Gastro Location: Physician(s): Homer Hicks FNP Diagnosis: A. Stomach, random biopsy: - Antral mucosa with reactive epithelial changes. - No Helicobacter pylori is seen. B. Colon, polyps, polypectomy: - Polypoid colonic mucosa with lymphoid aggregate and reactive epithelial changes. [facility]/12/20/2024 13:00 By this signature, I attest that [...] interpretation for this case was performed at [facility], Department of Surgical Pathology, [address] [facility] [place], [place] [id number], [place] [address] CLIA # [id number] The performance characteristics of some immunohistochemical stains, fluorescence in-situ hybridization tests and immunophenotyping by flow cytometry cited in this report (if any) were determined by the Surgical Pathology and Flow Cytometry Departments at [facility] as part of an ongoing supervisor vendor quality program and in compliance with federally mandated [...] Surgical Pathology and Flow Cytometry Departments of [facility]. It has not been cleared or approved by the U. S. Food and Drug Administration. IMAGES AND SCANNED DOCUMENTS, IF INCLUDED, ONLY VIEWABLE IN PDF VERSION OF REPORT us Catrachito Link MD LAB PATHOLOGY ORDERABLES F inal Result PATHOLOGY [facility] [phone] * EGD (12/19/2024 8:41 AM LABOR CONCILIATOR) Anatomical Region Laterality Modality Other Narrative Procedure Note Catrachito Link MD - 12/19/2024 8:41 AM CST ENDOSCOPY LAB Patient Name: Bijal Douglas Procedure Date: 12/19/2024 8:41 AM Date of : 1965 Admit Type: Outpatient Age: 59 Gender: Female Attending MD: Catrachito Link M.D. Room: [facility] ENDOSCOPY ROOM 04 Note Status: Finalized [...] and oxygen saturations were monitored continuously. The [id number] was introduced through the mouth,and advanced to [...] Final Result from Last 3 Months Insurance [facility] [place] Advance Directives For more information, please contact: [phone] * Full Code (Latest Code Status on File) Date Activated Date Inactivated Comments 12/19/2024 7:45 AM 12/19/2024 6:30 PM * Full Code Date Activated Date Inactivated Comments 11/18/2022 11:43 AM 11/18/2022 5:30 PM Care Teams New Vehicle Sales Consultant Relationship Specialty Start Date End Date Nancy Alvares NP [address] [place] [address] PCP - General Nurse Practitioner 10/08/21
--- OUTSIDE RECORDS SUMMARY | 2025-02-27 17:11 | XMS_ITS | Encounter Summary ---
Author Organization [facility] Address [address] [place] [address] Phone Care Team Providers Care Political Science Chair Name Role Phone Kiran Garvey MD Primary Care Provider + [phone] Kiran Garvey MD Primary Care Provider + [phone] Lorena Taylor MD Primary Care Provider + [phone] Dante Olivarez Primary Care Provider [phone] Morro Doyle MD Primary Care Provider [phone] Nancy Alvares NP Primary Care Provider + [phone] Encounter Details Date Type Department Care Team (Latest Contact Info) Description 04/13/2005 Orders Only [facility] Scanning, Provider Social History Tobacco Use Types Packs/Day Years Used Date Smoking Tobacco: Never Assessed Comments Unknown Sex and Gender Information Value Date Recorded Sex Assigned at Not on file Legal Sex Female 9:[address] PRODUCTION GENERAL MANAGER Gender Identity Not on file Sexual [...] on filedocumented in this encounter Care Teams Political Science Chair Relationship Specialty Start Date End Date Malench, Kiran E., MD [address] [place] [address] PCP - General 02/26/17 01/25/19 Kiran Garvey MD [address] [place] [address] PCP - General 03/21/15 02/25/17 Lorena Taylor MD [address] [place] [address] PCP - General Family Practice 01/26/19 03/31/21 Dante Olivarez PA [address] [place] [address] PCP - General Physician Coffee Sommelier 04/01/21 06/09/21 Morro Doyle MD [address] [facility] [address] [place] [address] PCP - General Internal Medicine 06/10/21 10/07/21 Nancy Alvares NP [address] [place] [id number] PCP - General Nurse Practitioner 10/08/21 documented as of this encounter
--- OUTSIDE RECORDS SUMMARY | 2025-02-27 17:11 | XMS_ITS | Encounter Summary ---
Author Organization [facility] Address [address] [place] [address] Phone Care Team Providers Care Methods Analyst Data Processing Name Role Phone Kiran Garvey MD Primary Care Provider + [phone] Kiran Garvey MD Primary Care Provider + [phone] Lorena Taylor MD Primary Care Provider + [phone] Dante Olivarez Primary Care Provider [phone] Morro Doyle MD Primary Care Provider [phone] Nancy Alvares NP Primary Care Provider + [phone] Encounter Details Date Type Department Care Team (Latest Contact Info) Description 09/27/2009 Orders Only [facility] Scanning, Provider Social History Tobacco Use Types Packs/Day Years Used Date Smoking Tobacco: Never Assessed Comments Unknown Sex and Gender Information Value Date Recorded Sex Assigned at Not on file Legal Sex Female 9:09 PM SENIOR FUNCTIONAL ANALYST Gender Identity Not on file Sexual [...] on filedocumented in this encounter Care Teams Methods Analyst Data Processing Relationship Specialty Start Date End Date Malench, Kiran E., MD [address] [place] [address] PCP - General 02/26/17 01/25/19 Kiran Garvey MD [address] [place] [address] PCP - General 03/21/15 02/25/17 Lorena Taylor MD [address] [place] [address] PCP - General Family Practice 01/26/19 03/31/21 Dante Olivarez PA [address] [place] [address] PCP - General Physician Flight Teacher 04/01/21 06/09/21 Morro Doyle MD [address] [facility] [address] [place] [address] PCP - General Internal Medicine 06/10/21 10/07/21 Nancy Alvares NP [address] [place] [id number] PCP - General Nurse Practitioner 10/08/21 documented as of this encounter
--- OUTSIDE RECORDS SUMMARY | 2025-02-27 17:11 | XMS_ITS | Encounter Summary ---
Author Organization [facility] Address [address] [place] [address] Care Team Providers Care Trademark Paralegal Name Role Phone Nancy Alvares Primary Care Provider [phone] Reason for Visit * Reason Comments Bone Density Report (SCAN) Encounter Details Date Type Department Care Team (Late st Contact Info) Description 01/17/2025 Scan HEALTH INFO [facility] Scanned, Doc Med Group Bone Density Report (SCAN) Social History Tobacco Use Types Packs/Day Years [...] CDT Gender Identity Female 12/23/2021 9:01 AM NUCLEAR OPERATOR Sexual Orientation Straight 12/23/2021 9: 01 AM NUCLEAR OPERATOR documented as of this encounter Plan of Treatment Upcoming Encounters Date Type Department Care Team (Late Contact Info) Description 02/28/2025 9:40 AM CDT Allied Health/Nurse Visit [facility] Family & Internal Medicine [place] [address] [place] [address] Nancy Alvares FNP [facility] [place] [address] 03/13/2025 11:20 AM CDT Office Visit [facility] Family & Internal Medicine [address] [address] Nancy Alvares FNP [address] [place] [address] 09/20/2025 11:00 AM CDT Office Visit [facility] Medical Group Family & Internal Medicine - [address] [place] [address] Nancy Alvares FNP [address] [place] [address] documented as of this encounter Procedures Procedure Name Priority Date/Time Associated Diagnosis Comments BONE DENSITY GENERIC (SCAN ORDER) 01/17/2025 documented in this encounter Results * BONE DENSITY GENERIC (SCAN ORDER) (01/17/2025) Anatomical Region Laterality Modality Other 01/17/2025 us Doc Med Group Scanned SCANNING Final Resu lt documented in this encounter Visit Diagnoses Not on filedocumented in this encounter Additional Health Concerns Assessment Noted Time PHQ-9 Depression Total Score: 21 023 4:28 PM NUCLEAR OPERATOR documented as of this encounter Care Teams Trademark Paralegal Relationship Specialty Start Date End Date Nancy Alvares FNP [address] [place] [address] PCP - General Nurse Practitioner Family 09/12/21 documented as of this encounter
--- OUTSIDE RECORDS SUMMARY | 2025-02-27 17:11 | XMS_ITS | Encounter Summary ---
Author Organization [facility] Address [address] [place] [address] Phone Care Team Providers Care Fiction And Nonfiction Prose Writer Name Role Phone Nancy Alvares NP Primary Care Provider [phone] Encounter Details Date Type Department Care Team [...] on file Legal Sex Female 9:09 PM SHEAR OPERATOR Gender Identity Not on file Sexual [...] on filedocumented in this encounter Care Teams Fiction And Nonfiction Prose Writer Relationship Specialty Start Date End Date Nancy Alvares NP [address] [place] [address] PCP - General Nurse Practitioner 10/08/21 documented as of this encounter
--- OUTSIDE RECORDS SUMMARY | 2025-02-27 17:11 | XMS_ITS | Encounter Summary ---
Author Organization [facility] Address [address] [place] [address] Phone Care Team Providers Care Party Director Name Role Phone Kiran Garvey MD Primary Care Provider + [phone] Kiran Garvey MD Primary Care Provider + [phone] Lorena Taylor MD Primary Care Provider + [phone] Dante Olivarez Primary Care Provider [phone] Morro Doyle MD Primary Care Provider [phone] Nancy Alvares NP Primary Care Provider + [phone] Encounter Details Date Type Department Care Team (Latest Contact Info) Description 02/10/2007 Orders Only [facility] Scanning, Provider Social History Tobacco Use Types Packs/Day Years Used Date Smoking Tobacco: Never Assessed Comments Unknown Sex and Gender Information Value Date Recorded Sex Assigned at Not on file Legal Sex Female 9:09 PM MARBLE MACHINE OPERATOR Gender Identity Not on file [...] on filedocumented in this encounter Care Teams Party Director Relationship Specialty Start Date End Date Malench, Kiran E., MD [address] [place] [address] PCP - General 02/26/17 01/25/19 Kiran Garvey MD [address] [place] [address] PCP - General 03/21/15 02/25/17 Lorena Taylor MD [address] [place] [address] PCP - General Family Practice 01/26/19 03/31/21 Dante Olivarez PA [address] [place] [address] PCP - General Physician Primer Expeditor And Drier 04/01/21 06/09/21 Morro Doyle MD [address] [facility] [address] [place] [address] PCP - General Internal Medicine 06/10/21 10/07/21 Nancy Alvares NP [address] [place] [id number] PCP - General Nurse Practitioner 10/08/21 documented as of this encounter
--- OUTSIDE RECORDS SUMMARY | 2025-02-27 17:11 | XMS_ITS | Encounter Summary ---
Author Organization [facility] Address [address] [place] [address] Care Team Providers Care Icer Air Conditioning Name Role Phone Nancy Alvares Primary Care Provider [phone] Encounter Details Date Type Department Care Team (Late Contact Info) Description 11/26/2023 MyChart Message Enc [facility] Medical Group Family & Internal Medicine [facility] [address] [place] [phone] Nancy Alvares FNP [address] [place], [place] [phone] Coughing Social History Tobacco Use Types Packs/Day [...] CDT Gender Identity Female 12/23/2021 9:01 AM WELL DRILLER HELPER Sexual Orientation Straight 12/23/2021 9: 01 AM WELL DRILLER HELPER documented as of this encounter Progress Notes * KIANNA Denis - 11/26/2023 2:28 PM CST I will send it out but yes test for covid DRILLER HELPER documented in this encounter Plan of Treatment Upcoming Encounters Date Type Department Care Team (Late st Contact Info) Description 02/28/2025 9:40 AM CDT Allied Health/Nurse Visit [facility] & Internal [address] [address] Nancy Alvares FNP [address] [place] [address] 03/13/2025 11:20 AM CDT Office Visit [facility] Internal [address] [address] Nancy Alvares FNP [address] [place] [address] 09/20/2025 11:00 AM CDT Office Visit [facility] Internal [address] [address] Nancy Alvares FNP [address] [place] [address] documented as of this encounter Visit Diagnoses Not on filedocumented in this encounter Additional Health Concerns Assessment Noted Time PHQ-9 Depression Total Score: 21 023 4:28 PM WELL DRILLER HELPER documented as of this encounter Care Teams Icer Air Conditioning Relationship Specialty Start Date End Date Nancy Alvares FNP [address] [place] [address] PCP - General Nurse Practitioner Family 09/12/21 documented as of this encounter
--- OUTSIDE RECORDS SUMMARY | 2025-02-27 17:11 | XMS_ITS | Encounter Summary ---
Author Organization [facility] Address [address] [place] [address] Phone Care Team Providers Care Cab Station Attendant Name Role Phone Kiran Garvey MD Primary Care Provider + [phone] Kiran Garvey MD Primary Care Provider + [phone] Lorena Taylor MD Primary Care Provider + [phone] Dante Olivarez Primary Care Provider [phone] Morro Doyle MD Primary Care Provider [phone] Nancy Alvares NP Primary Care Provider + [phone] Encounter Details Date Type Department Care Team (Latest Contact Info) Description 02/27/2011 Orders Only [facility] Scanning, Provider Social History Tobacco Use Types Packs/Day Years Used Date Smoking Tobacco: Never Assessed Comments Unknown Sex and Gender Information Value Date Recorded Sex Assigned at Not on file Legal Sex Female 9:09 PM 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 Gender Identity Not on file Sexual Orientation [...] on filedocumented in this encounter Care Teams Cab Station Attendant Relationship Specialty Start Date End Date Malench, Kiran E., MD [address] [place] [address] PCP - General 02/26/17 01/25/19 Kiran Garvey MD [address] [place] [address] PCP - General 03/21/15 02/25/17 Lorena Taylor MD [address] [place] [address] PCP - General Family Practice 01/26/19 03/31/21 Dante Olivarez PA [address] [place] [address] PCP - General Physician Property Underwriter 04/01/21 06/09/21 Morro Doyle MD [address] [facility] [address] [place] [address] PCP - General Internal Medicine 06/10/21 10/07/21 Nancy Alvares NP [address] [place] [id number] PCP - General Nurse Practitioner 10/08/21 documented as of this encounter
--- OUTSIDE RECORDS SUMMARY | 2025-02-27 17:11 | XMS_ITS | Encounter Summary ---
Author Organization [facility] Address [address] [place] [address] Care Team Providers Care Roller Coaster Designer Name Role Phone Nancy Alvares Primary Care Provider [phone] Encounter Details Date Type Department Care Team (Late st Contact Info) Description 03/16/2024 MyChart Message Enc [facility] Medical Group Family & Internal Medicine [facility] [address] [place] [phone] Nancy Alvares FNP [address] [place], [place] [phone] Rolled Ankle Social History Tobacco Use Types [...] CDT Gender Identity Female 12/23/2021 9:01 AM PROMOTIONAL 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 Sexual Orientation Straight 12/23/2021 9: 01 AM PROMOTIONAL 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 documented as of this encounter Progress Notes * Sammie Ricks RN - 03/17/2024 1:58 PM CDT Patient I going to go to walk in clinic in [place]. Opportunity given for all questions to be [...] 02/28/2025 9:40 AM CDT Allied Health/Nurse Visit [facility] Family & Internal [address] [address] Nancy Alvares FNP [address] [place] [address] 03/13/2025 11:20 AM CDT Office Visit [facility] Family Internal [address] [address] Nancy Alvares FNP [address] [place] [address] 09/20/2025 11:00 AM CDT Office Visit [facility] Internal [address] [address] Nancy Alvares FNP [facility] [place] [address] documented as of this encounter Visit Diagnoses Not on filedocumented in this encounter Additional Health Concerns Assessment Noted Time PHQ-9 Depression Total Score: 21 023 4:28 PM PROMOTIONAL 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 documented as of this encounter Care Teams Roller Coaster Designer Relationship Specialty Start Date End Date Nancy Alvares FNP [address] [place] [address] PCP - General Nurse Practitioner Family 09/12/21 documented as of this encounter
--- OUTSIDE RECORDS SUMMARY | 2025-02-27 17:11 | XMS_ITS | Encounter Summary ---
Author Organization [facility] Address [address] [place] [address] Care Team Providers Care Restorative Art Embalmer Name Role Phone Nancy Alvares Primary Care Provider [phone] Encounter Details Date Type Department Care Team (Late st Contact Info) Description 08/13/[address] [facility] Medical Group Family & Internal Medicine [facility] [address] [place] [address] Nancy Alvares FNP [facility] [place], [place] [phone] Sick Social History Tobacco Use Types Packs/Day [...] CDT Gender Identity Female 12/23/2021 9:01 AM LETTUCE CUTTER Sexual Orientation Straight 12/23/2021 9: 01 AM LETTUCE CUTTER documented as of this encounter Progress [...] 02/28/2025 9:40 AM CDT Allied Health/Nurse Visit [facility] Family & Internal [address] [address] Nancy Alvares FNP [address] [place] [address] 03/13/2025 11:20 AM CDT Office Visit [facility] Internal [address] [address] Nancy Alvares FNP [address] [place] [address] 09/20/2025 11:00 AM CDT Office Visit [address] [address] Nancy Alvares FNP [address] [place] [address] documented as of this encounter Visit Diagnoses Not on filedocumented in this encounter Additional Health Concerns Assessment Noted Time PHQ-9 Depression Total Score: 12 021 12:38 PM CDT documented as of this encounter Care Teams Restorative Art Embalmer Relationship Specialty Start Date End Date Nancy Alvares FNP [address] [place] [address] PCP - General Nurse Practitioner Family 09/12/21 documented as of this encounter
--- OUTSIDE RECORDS SUMMARY | 2025-02-27 17:11 | XMS_ITS | Encounter Summary ---
Author Organization [facility] Address [address] [place] [address] Phone Care Team Providers Care Drier Belt Conveyor Name Role Phone Kiran Garvey MD Primary Care Provider + [phone] Kiran Garvey MD Primary Care Provider + [phone] Lorena Taylor MD Primary Care Provider + [phone] Dante Olivarez Primary Care Provider [phone] Morro Doyle MD Primary Care Provider [phone] Nancy Alvares NP Primary Care Provider + [phone] Encounter Details Date Type Department Care Team (Latest Contact Info) Description 11/10/2006 Orders Only [facility] Scanning, Provider Social History Tobacco Use Types Packs/Day Years Used Date Smoking Tobacco: Never Assessed Comments Unknown Sex and Gender Information Value Date Recorded Sex Assigned at Not on file Legal Sex Female 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 Gender Identity Not on file Sexual [...] on filedocumented in this encounter Care Teams Drier Belt Conveyor Relationship Specialty Start Date End Date Malench, Ikran E., MD [address] [place] [address] PCP - General 02/26/17 01/25/19 Kiran Garvey MD [address] [place] [address] PCP - General 03/21/15 02/25/17 Lorena Taylor MD [address] [place] [address] PCP - General Family Practice 01/26/19 03/31/21 Dante Olivarez PA [address] [place] [address] PCP - General Physician Pick Out Hand 04/01/21 06/09/21 Morro Doyle MD [address] [facility] [address] [place] [address] PCP - General Internal Medicine 06/10/21 10/07/21 Nancy Alvares NP [address] [place] [id number] PCP - General Nurse Practitioner 10/08/21 documented as of this encounter
--- OUTSIDE RECORDS SUMMARY | 2025-02-27 17:11 | XMS_ITS | Clinical Summary ---
Author Organization [facility] Address [address] [facility] [place] [address] Care Team Providers Care Certified Substance Abuse Counselor Name Role Phone Unavailable Primary Care Provider Unavailabl e Source Comments [facility],non-owned Affiliates and Associated Physician Practices is amultiple site organization consisting of ambulatory clinics and hospital sitesin [place], [place], [place] and [place]. This disclosure is being madepursuant to the Care Everywhere program and may not contain all information available regarding this patient. Last updated 18.[facility] Social History Tobacco Use Types Packs/Day Years [...]
--- OUTSIDE RECORDS SUMMARY | 2025-02-27 17:11 | XMS_ITS | Encounter Summary ---
Author Organization 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 [place] [address] PCP - General Nurse Practitioner 10/08/21 documented as of this encounter
--- OUTSIDE RECORDS SUMMARY | 2025-02-27 17:11 | XMS_ITS | Encounter Summary ---
Author Organization [facility] Address [address] [place] [address] Care Team Providers Care Golf Sales Manager Name Role Phone Nancy Alvares Primary Care Provider [phone] Encounter Details Date Type Department Care Team (Late st Contact Info) Description 03/16/2022 MyChart Message Enc [facility] Medical Group Family & Internal Medicine [facility] [address] [place] [address] Nancy Alvares FNP [address] [place], [place] [phone] Left knee severe pain Social History Tobacco [...] CDT Gender Identity Female 12/23/2021 9:01 AM FOREST FIRE MANAGEMENT OFFICER Sexual Orientation Straight 12/23/2021 9: 01 AM FOREST FIRE MANAGEMENT OFFICER COVID-19 Exposure Response Date Recorded In [...] 02/28/2025 9:40 AM CDT Allied Health/Nurse Visit [facility] Family & Internal [address] [address] Nancy Alvares FNP [address] [place] [address] 03/13/2025 11:20 AM CDT Office Visit [facility] Internal [address] [address] Nancy Alvares FNP [address] [place] [address] 09/20/2025 11:00 AM CDT Office Visit [facility] Family Internal [address] [address] Nancy Alvares FNP [address] [place] [address] documented as of this encounter Visit Diagnoses Not on filedocumented in this encounter Additional Health Concerns Assessment Noted Time PHQ-9 Depression Total Score: 12 021 12:38 PM CDT documented as of this encounter Care Teams Golf Sales Manager Relationship Specialty Start Date End Date Nancy Alvares FNP [address] [place] [address] PCP - General Nurse Practitioner Family 09/12/21 documented as of this encounter
--- OUTSIDE RECORDS SUMMARY | 2025-02-27 17:11 | XMS_ITS | Encounter Summary ---
Author Organization [facility] Address [address] [place] [address] Phone Care Team Providers Care Snap Shearer Name Role Phone Kiran Garvey MD Primary Care Provider + [phone] Kiran Garvey MD Primary Care Provider + [phone] Lorena Taylor MD Primary Care Provider + [phone] Dante Olivarez Primary Care Provider [phone] Morro Doyle MD Primary Care Provider [phone] Nancy Alvares NP Primary Care Provider + [phone] Encounter Details Date Type Department Care Team (Latest Contact Info) Description 02/27/2015 Orders Only [facility] Scanning, Provider Social History Tobacco Use Types Packs/Day Years Used Date Smoking Tobacco: Never Assessed Comments Unknown Sex and Gender Information Value Date Recorded Sex Assigned at Not on file Legal Sex Female 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 LABORER 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 Gender Identity Not on file Sexual Orientation [...] on filedocumented in this encounter Care Teams Snap Shearer Relationship Specialty Start Date End Date Malench, Kiran E., MD [address] [place] [address] PCP - General 02/26/17 01/25/19 Kiran Garvey MD [address] [place] [address] PCP - General 03/21/15 02/25/17 Lorena Taylor MD [address] [place] [address] PCP - General Family Practice 01/26/19 03/31/21 Dante Olivarez PA [address] [place] [address] PCP - General Physician Government Affairs Manager 04/01/21 06/09/21 Morro Doyle MD [address] [facility] [address] [place] [address] PCP - General Internal Medicine 06/10/21 10/07/21 Nancy Alvares NP [address] [place] [id number] PCP - General Nurse Practitioner 10/08/21 documented as of this encounter
--- OUTSIDE RECORDS SUMMARY | 2025-02-27 17:11 | XMS_ITS | Encounter Summary ---
Author Organization [facility] Address [address] [place] [address] Care Team Providers Care Marble Finisher Name Role Phone Nancy Alvares Primary Care Provider [phone] Encounter Details Date Type Department Care Team (Late Contact Info) Description 09/20/2024 Unidymt Message Enc [facility] Family & Internal [address] [address] [place] Provider XR results Social History Tobacco Use [...] Gender Identity Female 12/23/2021 9:01 AM AUDIT SPEC Sexual Orientation Straight 12/23/2021 9: 01 AM AUDIT SPEC documented as of this encounter Plan of Treatment Upcoming Encounters Date Type Department Care Team (Late st Contact Info) Description 02/28/2025 9:40 AM CDT Allied Health/Nurse Visit [facility] Family & Internal [address] [phone] Nancy Alvares FNP [address] [place] [address] 03/13/2025 11:20 AM CDT Office Visit [facility] Family & Internal Medicine [address] [address] Nancy Alvares FNP [address] [place] [address] 09/20/2025 11:00 AM CDT Office Visit [facility] Medical Group Family & Internal Medicine [address] [address] Nancy Alvares FNP [facility] [place] [address] documented as of this encounter Visit Diagnoses Not on filedocumented in this encounter Additional Health Concerns Assessment Noted Time PHQ-9 Depression Total Score: 21 023 4:28 PM AUDIT SPEC documented as of this encounter Care Teams Marble Finisher Relationship Specialty Start Date End Date Nancy Alvares FNP [address] [place] [address] PCP - General Nurse Practitioner Family 09/12/21 documented as of this encounter
--- OUTSIDE RECORDS SUMMARY | 2025-02-27 17:11 | XMS_ITS | Referral Summary ---
Author Organization [facility] [address] Address [address] [place] [address] Care Team Providers Care Talent Assistant Name Role Phone Nancy Alvares NP Primary Care Provider Encounters Date Type Department Care Team Description 01/26/2025 4:00 PM TREE THINNER Office Visit [facility] Medical Group Neurology [address] [place] [address] [address] [place] [address] Marlin Kirkland NP Parkinson disease (HCC) (Primary Dx); Paresthesia of skin; Memory disturbance 12/22/2024 Telephone [facility] Gastroenterology [address] [place] [address] Medical Office Building [address] [place] [address] Ayanna Venegas RN GI path results 12/19/2024 8:30 AM TREE THINNER - 12/19/2024 9:00 AM TREE THINNER Surgery [facility]oscopy [address] [place] [address] Catrachito Link MD COLON BIOPSY 12/19/2024 8:43 AM TREE THINNER Anesthesia Event [facility] [address] [place] [address] Grupo Orozco MD Boyle, Christine Michelle, FINANCE TEACHER 12/19/2024 7:11 AM TREE THINNER - 12/19/2024 10:15 AM TREE THINNER Hospital Encounter [facility] [address] [place] [address] Catrachito Link MD Epigastric pain; Abdominal pain Discharge Disposition: Discharge to home or self care 12/04/2024 Telephone [facility] [facility] [address] [place] [address] Bailey Merrill, RN Reschedule from [...] (11/16/2022): Added automatically from request for surgery [id number] Family history of malignant neoplasm of gastrointestinal tract 11/16/2022 Overview (11/16/2022): Added automatically from request for surgery [id number] Parkinson disease 06/10/2021 Assessment & Plan (11/18/2021 4:42 PM TREE THINNER): Patient continues at this time on pramipexole [...] on file Legal Sex Female 9:09 PM TREE THINNER Gender Identity Not on file Sexual Orientation Not on file Last Filed Vital Signs Vital Sign Reading Time Taken Comments Blood Pressure 119/79 01/26/2025 3:50 PM TREE THINNER Pulse 93 01/26/2025 3:50 PM TREE THINNER Temperature 36.3 C (97.3 F) 12/19/2024 9:15 AM TREE THINNER Respiratory Rate 20 01/26/2025 3:50 PM TREE THINNER Oxygen Saturation 97% 01/26/2025 3:50 PM TREE THINNER Inhaled Oxygen Concentration - - Weight 90.7 kg (200 lb) 01/26/2025 3:50 PM TREE THINNER Height 167.6 cm (5' 6 ) 01/26/2025 3:50 PM TREE THINNER Body Mass Index 32.28 01/26/2025 3:50 PM TREE THINNER Plan of Treatment Scheduled Procedures Name Priority Associated Diagnoses Date/Ti me COLONOSCOPY Colon cancer screening Procedures Procedure Name Priority Date/Time Associated Diagnosis Comments COLONOSCOPY 12/19/2024 8:53 AM TREE THINNER SURGICAL PATHOLOGY Routine 12/19/2024 8:51 AM TREE THINNER Epigastric pain Abdominal pain ESOPHAGOGASTRODUODENOSCOPY BIOPSY 12/19/2024 8:43 AM TREE THINNER Epigastric pain Abdominal pain COLON BIOPSY 12/19/2024 8:43 AM TREE THINNER Epigastric pain Abdominal pain EGD 12/19/2024 8:41 AM TREE THINNER from Last 3 Months Results * Colonoscopy (12/19/2024 8:53 AM TREE THINNER) Anatomical Region Laterality Modality Other Narrative Procedure Note Catrachito Link MD - 12/19/2024 8:53 AM CST ENDOSCOPY LAB Patient Name: Bijal Douglas Procedure Date: 12/19/2024 8:53 AM Date of : 1965 Admit Type: Outpatient Age: 59 Gender: Female Attending MD: Catrachito Link M.D. Room: [facility] ENDOSCOPY ROOM 04 Note Status: Finalized [...] The scope was passed under direct vision.The [id number] was introduced through the anusand advanced to [...] Final * Surgical pathology (12/19/2024 8:51 AM TREE THINNER) Tissue (Gastric/Stomach biopsy) 12/19/2024 8:51 AM TREE THINNER Tissue (Polyp(s), colon/colorectal, esophageal, gastric) 12/19/2024 9:04 AM TREE THINNER Narrative PATHOLOGY W - 12/21/2024 1:46 PM TREE THINNER EPIC results best viewed via link to PDF [facility] [place] [address] Note to Patients: This report may contain [...] Gender: F : 1965 (Age: 59) Address: [address] [place], [place] [id number] Hospital #: [id number] Taken:12/19/2024 Received:12/19/2024 Reported: 12/21/2024 Patient Type: [facility] EP SAME Client [facility] Service: Gastro Location: Physician(s): Homer Hicks, [facility] Diagnosis: A. Stomach, random biopsy: - Antral mucosa with reactive epithelial changes. - No Helicobacter pylori is seen. B. Colon, polyps, polypectomy: - Polypoid colonic mucosa with lymphoid aggregate and reactive epithelial changes. [facility]/12/20/2024 13:00 By this signature, I attest that [...] interpretation for this case was performed at [facility], Department of Surgical Pathology, [address] [facility] [place], [place] [id number], [place] [address] CLIA # [id number] The performance characteristics of some immunohistochemical stains, fluorescence in-situ hybridization tests and immunophenotyping by flow cytometry cited in this report (if any) were determined by the Surgical Pathology and Flow Cytometry Departments at [facility] as part of an ongoing quality director program and in compliance with federally mandated [...] Surgical Pathology and Flow Cytometry Departments of [facility]. It has not been cleared or approved by the U. S. Food and Drug Administration. IMAGES AND SCANNED DOCUMENTS, IF INCLUDED, ONLY VIEWABLE IN PDF VERSION OF REPORT Catrachito Link MD LAB PATHOLOGY ORDERABLES F inal Result PATHOLOGY [facility] [phone] * EGD (12/19/2024 8:41 AM TREE THINNER) Anatomical Region Laterality Modality Other Narrative Procedure Note Catrachito Link MD - 12/19/2024 8:41 AM CST ENDOSCOPY LAB Patient Name: Bijal Douglas Procedure Date: 12/19/2024 8:41 AM Date of : 1965 Admit Type: Outpatient Age: 59 Gender: Female Attending MD: Catrachito Link M.D. Room: [facility] ENDOSCOPY ROOM 04 Note Status: Finalized [...] and oxygen saturations were monitored continuously. The [id number] was introduced through the mouth,and advanced to [...] Final Result from Last 3 Months Insurance [employer] [place] [employer] [place] Advance Directives For more information, please contact: [phone] * Full Code (Latest Code Status on File) Date Activated Date Inactivated Comments 12/19/2024 7:45 AM 12/19/2024 6:30 PM * Full Code Date Activated Date Inactivated Comments 11/18/2022 11:43 AM 11/18/2022 5:30 PM Care Teams Talent Assistant Relationship Specialty Start Date End Date Nancy Alvares NP [address] [place] [address] PCP - General Nurse Practitioner 10/08/21
--- OUTSIDE RECORDS SUMMARY | 2025-02-27 17:11 | XMS_ITS | Encounter Summary ---
Author Organization [facility] Address [address] [place] [address] Phone Care Team Providers Care Sericulture Teacher Name Role Phone Kiran Garvey MD Primary Care Provider + [phone] Kiran Garvey MD Primary Care Provider + [phone] Lorena Taylor MD Primary Care Provider + [phone] Dante Olivarez Primary Care Provider [phone] Morro Doyle MD Primary Care Provider [phone] Nancy Alvares NP Primary Care Provider + [phone] Encounter Details Date Type Department Care Team (Latest Contact Info) Description 04/16/2006 Orders Only [facility] Scanning, Provider Social History Tobacco Use Types Packs/Day Years Used Date Smoking Tobacco: Never Assessed Comments Unknown Sex and Gender Information Value Date Recorded Sex Assigned at Not on file Legal Sex Female 9:09 PM ADMISSIONS SPECIALIST Gender Identity Not on file Sexual Orientation [...] on filedocumented in this encounter Care Teams Sericulture Teacher Relationship Specialty Start Date End Date Malench, Kiran E., MD [address] [place] [address] PCP - General 02/26/17 01/25/19 Kiran Garvey MD [address] [place] [address] PCP - General 03/21/15 02/25/17 Lorena Taylor MD [address] [place] [address] PCP - General Family Practice 01/26/19 03/31/21 Dante Olivarez PA [address] [place] [address] PCP - General Physician Affiliate Marketing Manager 04/01/21 06/09/21 Morro Doyle MD [address] [facility] [address] [place] [address] PCP - General Internal Medicine 06/10/21 10/07/21 Nancy Alvares NP [address] [place] [address] [id number] PCP - General Nurse Practitioner 10/08/21 documented as of this encounter
--- OUTSIDE RECORDS SUMMARY | 2025-02-27 17:11 | XMS_ITS | Continuity of Care Document ---
Author Organization [facility] Address [address] [place] [address] [address] [place] [address] Phone Care Team Providers Care Quantitative Analyst Developer Name Role Phone Jin OD, Toby Unavailable Unavailable Procedures Procedure Date Office/outpatient Visit, [facility] Advance Directives Directive Yes / No Effective Date File Name No Information Encounters Encounter Description Practice Location Reason(s) For Visit Diagnoses Date Provider Providers Copied on Encounter Office/outpat ient Visit, [facility], [address], [place], [place], [id number], [place] tel:[phone] [facility] No Information 2-201 0 Jin OD Toby. [address] , [address], [place], [address], [place]. tel:[phone] Family History Family Member Type Diagnosis Age At Onset No Information Payers Payer name Insurance type Covered constitution party ID Authoriza tion(s) No Information Social [...]
--- OUTSIDE RECORDS SUMMARY | 2025-02-27 17:11 | XMS_ITS | Encounter Summary ---
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
--- OUTSIDE RECORDS SUMMARY | 2025-02-27 17:11 | XMS_ITS | Encounter Summary ---
Author Organization [facility] Address [address] [place] [address] Phone Care Team Providers Care Residential Life Director Name Role Phone Kiran Garvey MD Primary Care Provider + [phone] Kiran Garvey MD Primary Care Provider + [phone] Lorena Taylor MD Primary Care Provider + [phone] Dante Olivarez Primary Care Provider [phone] Morro Doyle MD Primary Care Provider [phone] Nancy Alvares NP Primary Care Provider + [phone] Encounter Details Date Type Department Care Team (Latest Contact Info) Description 11/23/2006 Orders Only [facility] Scanning, Provider Social History Tobacco Use Types Packs/Day Years Used Date Smoking Tobacco: Never Assessed Comments Unknown Sex and Gender Information Value Date Recorded Sex Assigned at Not on file Legal Sex Female 9:09 PM 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 Gender Identity Not on file Sexual [...] on filedocumented in this encounter Care Teams Residential Life Director Relationship Specialty Start Date End Date Malench, Kiran E., MD [address] [place] [address] PCP - General 02/26/17 01/25/19 Kiran Garvey MD [address] [place] [address] PCP - General 03/21/15 02/25/17 Lorena Taylor MD [address] [place] [address] PCP - General Family Practice 01/26/19 03/31/21 Dante Olivarez PA [address] [place] [address] PCP - General Physician Sand Molder 04/01/21 06/09/21 Morro Doyle MD [address] [facility] [address] [place] [address] PCP - General Internal Medicine 06/10/21 10/07/21 Nancy Alvares NP [address] [place] [address] [id number] PCP - General Nurse Practitioner 10/08/21 documented as of this encounter
--- OUTSIDE RECORDS SUMMARY | 2025-02-27 17:11 | XMS_ITS | Encounter Summary ---
Author Organization [facility] Address [address] [place] [address] Phone Care Team Providers Care Dinkey Engine Firer Name Role Phone Kiran Garvey MD Primary Care Provider + [phone] Kiran Garvey MD Primary Care Provider + [phone] Lorena Taylor MD Primary Care Provider + [phone] Dante Olivarez Primary Care Provider [phone] Morro Doyle MD Primary Care Provider [phone] Nancy Alvares NP Primary Care Provider + [phone] Encounter Details Date Type Department Care Team (Latest Contact Info) Description 03/19/2015 Orders Only [facility] Scanning, Provider Social History Tobacco Use Types Packs/Day Years Used Date Smoking Tobacco: Never Assessed Comments Unknown Sex and Gender Information Value Date Recorded Sex Assigned at Not on file Legal Sex Female 9: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 Gender Identity Not on file Sexual Orientation [...] on filedocumented in this encounter Care Teams Dinkey Engine Firer Relationship Specialty Start Date End Date Kiran Garvey MD [address] [place] [address] PCP - General 02/26/17 01/25/19 Kiran Garvey MD [address] [place] [address] PCP - General 03/21/15 02/25/17 Lorena Taylor MD [address] [place] [address] PCP - General Family Practice 01/26/19 03/31/21 Dante Olivarez, PA [address] [place] [address] PCP - General Physician Legal Department Manager 04/01/21 06/09/21 Morro Doyle MD [address] [facility] [address] [place] [address] PCP - General Internal Medicine 06/10/21 10/07/21 Nancy Alvares MAJOR SALES ASSOCIATE [address] [place] [address] PCP - General Nurse Practitioner 10/08/21 documented as of this encounter
--- OUTSIDE RECORDS SUMMARY | 2025-02-27 17:12 | XMS_ITS | Encounter Summary ---
Author Organization [facility] Address [address] [place] [address] Care Team Providers Care Batcher Operator Name Role Phone Nancy Alvares Primary Care Provider [phone] Encounter Details Date Type Department Care Team (Late Contact Info) Description 12/24/2021 PVC Recycling Message Enc [facility] Family & Internal [address] [phone] Victor M, [facility] Provider Appointment Reschedule Social History Tobacco Use [...] CDT Gender Identity Female 12/23/2021 9:01 AM OCEANOGRAPHER ASSISTANT Sexual Orientation Straight 12/23/2021 9: 01 AM OCEANOGRAPHER ASSISTANT documented as of this encounter Plan of Treatment Upcoming Encounters Date Type Department Care Team (Late Contact Info) Description 02/28/2025 9:40 AM CDT Allied Health/Nurse Visit [facility] Family & Internal [address] [phone] Nancy Alvares FNP [address] [place] [address] [phone] 03/13/2025 11:20 AM CDT Office Visit [facility] Family & Internal Medicine [address] [address] Nancy Alvares FNP [address] [place] [address] 09/20/2025 11:00 AM CDT Office Visit [facility] Family [facility] Internal Medicine [address] [address] Nancy Alvares FNP [address] [place] [address] documented as of this encounter Visit Diagnoses Not on filedocumented in this encounter Additional Health Concerns Infection Onset Date Last Indicated Resolved Time COVID-19 Confirmed 12/12/2021 12/12/2021 12:34 AM OCEANOGRAPHER ASSISTANT Assessment Noted Time PHQ-9 Depression Total Score: 12 021 12:38 PM CDT documented as of this encounter Care Teams Batcher Operator Relationship Specialty Start Date End Date Nancy Alvares FNP [address] [place] [address] PCP - General Nurse Practitioner Family 09/12/21 documented as of this encounter
--- OUTSIDE RECORDS SUMMARY | 2025-02-27 17:12 | XMS_ITS | Clinical Summary ---
Author Organization [facility] Address Formerly [facility] [place] [address] Care Team Providers Care Compensation Specialist Name Role Phone Nicole Holt KIANNA Primary Care Provider [phone] Allergies No known active allergies Medications Aspirin-Acetamino [...] DAILY 8 tablet 1 02/03/20 25 Active nitrofurantoin, macrocrystal-mono hydrate, (MACROBID) 100 MG capsuleIndication s:Dysuria,Frequen t urination Take 1 capsule (100 mg total) by mouth 2 (two) times daily for 7 days. 14 capsule 02/28/20 25 025 Active losartan (COZAAR) 50 MG tabletIndications :Essential [...] (11/19/2022): Added automatically from request for surgery [id number] Family history of malignant neoplasm of gastrointestinal tract 11/16/2022 Overview (11/19/2022): Added automatically from request for surgery [id number] Folic acid deficiency 09/14/2022 History of Graves' [...] in adult 09/18/2021 Fibromyalgia 09/12/2021 Parkinson disease ([facility]) 06/10/2021 Overview (09/12/2021): Last Assessment [...] 05/01/2015 Overview (09/12/2021): Mitral regurgitation Pulmonary hypertension ([facility]) 015 Overview (09/12/2021): Pulmonary hypertension Snoring 05/01/2015 Overview (09/12/2021): Snoring Anemia 02/16/2013 Resolved Problems Problem Noted Date Diagnosed Date Resolved Date Finger mass, left 09/04/2022 07/01/2023 Finger injury, right, sequela 09/18/2021 07/01/2023 Swelling of finger joint of right hand 09/18/2021 07/01/2023 SOB (shortness of breath) 04/08/2018 Encounters Date Type Department Care Team Description 02/26/2025 MyChart Message Enc [facility] Internal [address] [address] Nicole Holt FNP Bladder Infection 02/26/[address] [address] Nicole Holt FNP Lab Results (Alejandro lab results 02/21/25) 02/21/[address] [address] Nicole Holt FNP Information; Advice 02/19/[address] [address] Nicole Holt FNP Appointment Request 02/14/2025 MyChart Message Enc [address] [address] Nicole Holt FNP Chronic cough 01/23/2025 Telephone [facility] [address] [place] [address] Nicole Holt, DRYCLEANER Radiology Results 01/22/2025 Telephone [facility] Internal [address] [address] Patti Holtanda, DRYCLEANER Radiology Results 01/18/2025 Scan [facility] Scanned, [facility] Image (SCAN) 01/17/2025 Scan [facility] Scanned, [facility] Bone Density Report (SCAN) 01/16/2025 Scan [facility] Scanned, [facility] 12/29/[address] [address] Nicole Holt, DRYCLEANER Radiology Results 12/29/2024 Travel 12/26/2024 MyChart Message Enc [address] [address] Nicole Holt, DRYCLEANER Still sick 12/21/2024 MyChart Message Enc [address] [address] Nicole Holt, DRYCLEANER Sick 12/19/2024 Scan [facility] Scanned, [facility] Endoscopy (SCAN); Colonoscopy Report (SCAN); Pathology (SCAN) 12/05/2024 Orders Only [facility] Internal [address] [address] Patti Holtanda, DRYCLEANER 12/04/2024 MyChart Message Enc [address] [address] Nicole Holt, DRYCLEANER Sick from Last 3 Months Immunizations Name Administration [...] CDT Gender Identity Female 12/23/2021 9:01 AM ANTHROPOLOGY LECTURER Sexual Orientation Straight 12/23/2021 9: 01 AM ANTHROPOLOGY LECTURER Last Filed Vital Signs Vital Sign Reading [...] 02/28/2025 9:40 AM CDT Allied Health/Nurse Visit [facility] Medical Group Family & Internal [address] [address] Nicole Holt, [address] [address] 03/13/2025 11:20 AM CDT Office Visit [address] [address] Nicole Holt, [address] [address] 09/20/2025 11:00 AM CDT Office Visit [address] [address] Nicole Holt, [address] [address] Health Maintenance Due Date Last Done Comments Annual Physical 1968 Zoster Vaccines (1 of 2) 2014 RSV Immunization or 60+ Years (1 - Risk 60-74 years 1-dose series) 2024 PHQ-2 (Physician [place]) 11/29/2024 03/17/2024 COVID-19 Vaccine ( season) 2025 [...] Patients (6 to 64 Years) Completed 09/04/2022 Meningococcal B Vaccine Aged Out No l onger eligible based on patient's age to complete this topic Meningococcal Vaccine Aged Out No maciel celeste eligible based on patient's age to complete this topic RSV Immunizations Under 20 Months Aged Out No longer eligible based on patient's age to complete this topic Procedures Procedure Name Priority Date/Time Associated Diagnosis Comments IMAGE GENERIC 01/18/2025 BONE DENSITY GENERIC (SCAN ORDER) 01/17/2025 XR CHEST PA+LAT Routine 12/29/2024 11:09 AM ANTHROPOLOGY LECTURER Chest tightness PATHOLOGY GENERIC (SCAN ORDER) 12/19/2024 [...] Anatomical Region Laterality Modality Other 01/18/2025 [facility] Scanned SCANNING Final Resu lt * BONE DENSITY GENERIC (SCAN ORDER) (01/17/2025) Anatomical Region Laterality Modality Other 01/17/2025 [facility] Scanned SCANNING Final Resu lt * XR CHEST PA+LAT (12/29/2024 11:09 AM ANTHROPOLOGY LECTURER) Anatomical Region Laterality Modality Chest Radiographic Phuong ging 12/29/2024 11:2 5 AM ANTHROPOLOGY LECTURER Impressions 12/29/2024 11:26 AM ANTHROPOLOGY LECTURER IMPRESSION: No radiographic evidence of active chest disease. Ordered By: NICOLE HOLT Interpreted By: Thaddeus Palma MD, 12/29/2024 11:25 AM Narrative 12/29/2024 11:26 AM ANTHROPOLOGY LECTURER [facility] Family [facility] Internal [place] [id number] Examination: XR CHEST PA+LAT Exam time: 12/29/2024 11:05 AM Clinical history: Cough. Congestion. Comparison: No prior exam Technique: Upright PA and lateral views Findings: Excellent and pulmonary vasculature are within normal limits. Lungs appear clear. No evidence of pleural effusion. No evidence of bronchial wall thickening or abnormal pulmonary interstitium. Procedure Note Thaddeus Palma MD - 12/29/2024 [facility] Internal [place] [id number] Examination: XR CHEST PA+LAT Exam time: 12/29/2024 [...] Palma MD, 12/29/2024 11:25 AM Nicole Holt DRYCLEANER GENERAL IMAGING Final Result * PATHOLOGY GENERIC (SCAN ORDER) (12/19/2024) Only the most recent of2 resultswithin the time period is included. 12/19/2024 [email or web address] Scanned SCANNING Final Resu lt * ENDOSCOPY (SCAN ORDER) (12/19/2024) 12/19/2024 [email or web address] Scanned SCANNING Final Resu lt * ENDOSCOPY (SCAN ORDER) (12/19/2024) 12/19/2024 [facility] Scanned SCANNING Final Resu lt * COLONOSCOPY GENERIC (SCAN ORDER) (12/19/2024) 12/19/2024 [facility] Scanned SCANNING Final Resu lt * COLONOSCOPY GENERIC (SCAN ORDER) (12/19/2024) 12/19/2024 [facility] Scanned SCANNING Final Resu lt * MAMMOGRAM GENERIC (SCAN ORDER) (10/20/2024) Anatomical Region Laterality Modality Other 10/20/2024 [facility] Scanned SCANNING Final Resu lt * HEPATITIS C AB ([facility] ONLY) (09/04/2022 9:42 AM CDT) HEPATITIS C AB NON-REACTI VE NON-REACT [facility] 09/04/2022 6:29 PM CDT [facility] Comment: ANTIBODIES TO HCV NOT DETECTED. DOES NOT EXCLUDE THE POSSIBILITY OF EXPOSURE TO HCV. 09/04/2022 9:42 AM CDT Result [facility] Final Result [facility] [address] [place] [address], [id number] from Last 3 Months or Most Recently Relevant to Health Maintenance Insurance [facility] Care Teams Compensation Specialist Relationship Specialty Start Date End Date Nicole Holt FNP [address] [place] [address] PCP - General Nurse Practitioner Family 09/12/21
--- OUTSIDE RECORDS SUMMARY | 2025-02-27 17:12 | XMS_ITS | Encounter Summary ---
Author Organization [facility] Address [address] [place] [address] Care Team Providers Care Acid Filler Name Role Phone Nancy Alvares Primary Care Provider [phone] Encounter Details Date Type Department Care Team (Late st Contact Info) Description 10/12/2024 MyChart Message Enc [facility] Family & Internal Medicine [facility] [address] [place] [address] Nancy Alvares FNP [facility] [place], [place] [id number] EDG & Colonoscopy Referral Social History Tobacco [...] CDT Gender Identity Female 12/23/2021 9:01 AM STATE SUPERINTENDENT OF SCHOOLS Sexual Orientation Straight 12/23/2021 9: 01 AM STATE SUPERINTENDENT OF SCHOOLS documented as of this encounter Progress Notes * KIANNA Denis - 10/17/2024 3:33 PM CST Oh I thought she wanted a GI referral? E SUPERINTENDENT OF SCHOOLS * Lian Marrufo - 10/12/2024 12:41 PM CST Patient called back and wanted to speak to Nancy about this referral. Everyone is a lunch so I told her that someone will give her a call once the message has been read. E SUPERINTENDENT OF SCHOOLS documented in this encounter Plan of Treatment Upcoming Encounters Date Type Department Care Team (Late st Contact Info) Description 02/28/2025 9:40 AM CDT Allied Health/Nurse Visit [facility] Family & Internal [address] [address] Nancy Alvares, KIANNA [address] [place] [address] 03/13/2025 11:20 AM CDT Office Visit [address] [address] Nancy Alvares FNP [address] [place] [address] 09/20/2025 11:00 AM CDT Office Visit [address] [address] Nancy Alvares FNP [address] [place] [address] documented as of this encounter Visit Diagnoses Not on filedocumented in this encounter Additional Health Concerns Assessment Noted Time PHQ-9 Depression Total Score: 21 023 4:28 PM STATE SUPERINTENDENT OF SCHOOLS documented as of this encounter Care Teams Acid Filler Relationship Specialty Start Date End Date Nancy Alvares FNP [address] [place] [address] PCP - General Nurse Practitioner Family 09/12/21 documented as of this encounter
--- OUTSIDE RECORDS SUMMARY | 2025-02-27 17:12 | XMS_ITS | Encounter Summary ---
Author Organization [facility] Address [address] [place] [address] Care Team Providers Care Cemetery Vault Installer Name Role Phone Nancy Alvares Primary Care Provider [phone] Encounter Details Date Type Department Care Team (Late st Contact Info) Description 07/13/2022 MyChart Message Enc [facility] Family & Internal Medicine [facility] [address] [place] [address] Nancy Alvares FNP [address] [place], [place] [id number] Lorazepam Social History Tobacco Use Types Packs/Day [...] CDT Gender Identity Female 12/23/2021 9:01 AM SOUND RECORDIST Sexual Orientation Straight 12/23/2021 9: 01 AM SOUND RECORDIST documented as of this encounter Progress Notes * Kiley Jimenes MA - 07/13/2022 5:14 PM CDTFrom: Bijal Kyle To: Nancy Alvares Sent: 07/13/2022 12:13 PM CDT Subject: Lorazepam I had [facility] submit for my refill on my Lorazapam 0.5 MG that I take one every 8 hours and have always received 90 tablets for the month. I went to pick pulling machine tender my refill on July 10 and it had the same instructions, but on was for 30 pills. Can you have Nancy send in an updated refill like the previous ones? Thank you, Chacho Kyle documented in this encounter Plan of Treatment Upcoming Encounters Date Type Department Care Team (Late st Contact Info) Description 02/28/2025 9:40 AM CDT Allied Health/Nurse Visit [facility] Family & Internal [address] [address] Nancy Alvares FNP [address] [place] [address] 03/13/2025 11:20 AM CDT Office Visit [facility] Internal [address] [address] Nancy Alvares FNP [address] [place] [address] 09/20/2025 11:00 AM CDT Office Visit [facility] Internal [address] [address] Nancy Alvares FNP [address] [place] [address] documented as of this encounter Visit Diagnoses Not on filedocumented in this encounter Additional Health Concerns Assessment Noted Time PHQ-9 Depression Total Score: 12 021 12:38 PM CDT documented as of this encounter Care Teams Cemetery Vault Installer Relationship Specialty Start Date End Date Nancy Alvares FNP [address] [place] [address] PCP - General Nurse Practitioner Family 09/12/21 documented as of this encounter
== END 2025-02-27 15:42 | disposition home or self-care (01) ==
PROVIDERS: PCP Nurse Practitioner Family; Visit Provider Nurse Practitioner
DX: R20.2 Paresthesia of skin (principal)
CPT/HCPCS: 70551

== ENCOUNTER 2025-03-08 18:11 | Emergency (ER) | payer BC, SELFPAY ==
--- OUTSIDE RECORDS SUMMARY | 2025-03-08 18:14 | XMS_ITS | Encounter Summary ---
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
--- OUTSIDE RECORDS SUMMARY | 2025-03-08 18:14 | XMS_ITS | Encounter Summary ---
Author Organization [facility] Address [address] [place] [address] Phone Care Team Providers Care Compliance Auditor Name Role Phone Kiran Garvey MD Primary Care Provider + [phone] Kiran Garvey MD Primary Care Provider + [phone] Lorena Taylor MD Primary Care Provider + [phone] Dante Olivarez Primary Care Provider [phone] Morro Doyle MD Primary Care Provider +[phone] Nancy Alvares NP Primary Care Provider + [phone] Encounter Details Date Type Department Care Team (Latest Contact Info) Description 09/27/2009 Orders Only [facility] Scanning, Provider Social History Tobacco Use Types Packs/Day Years Used Date Smoking Tobacco: Never Assessed Comments Unknown Sex and Gender Information Value Date Recorded Sex Assigned at Not on file Legal Sex Female 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 Gender Identity Not on file Sexual Orientation [...] on filedocumented in this encounter Care Teams Compliance Auditor Relationship Specialty Start Date End Date Malench, Kiran E., MD [address] [place] [address] PCP - General 02/26/17 01/25/19 Kiran Garvey MD [address] [place] [address] PCP - General 03/21/15 02/25/17 Lorena Taylor MD [address] [place] [address] PCP - General Family Practice 01/26/19 03/31/21 Dante Olivarez PA [address] [place] [address] PCP - General Physician Factory Hand 04/01/21 06/09/21 Morro Doyle MD [address] [facility] [address] [place] [address] PCP - General Internal Medicine 06/10/21 10/07/21 Nancy Alvares NP [address] [place] [address] [id number] PCP - General Nurse Practitioner 10/08/21 documented as of this encounter
--- OUTSIDE RECORDS SUMMARY | 2025-03-08 18:14 | XMS_ITS | Encounter Summary ---
Author Organization [facility] Address [address] [place] [address] Phone Care Team Providers Care Shoe Worker Name Role Phone Kiran Garvey MD Primary Care Provider + [phone] Kiran Garvey MD Primary Care Provider + [phone] Lorena Taylor MD Primary Care Provider + [phone] Dante Olivarez Primary Care Provider [phone] Morro Doyle MD Primary Care Provider +[phone] Nancy Alvares NP Primary Care Provider + [phone] Encounter Details Date Type Department Care Team (Latest Contact Info) Description 04/16/2006 Orders Only [facility] Scanning, Provider Social History Tobacco Use Types Packs/Day Years Used Date Smoking Tobacco: Never Assessed Comments Unknown Sex and Gender Information Value Date Recorded Sex Assigned at Not on file Legal Sex Female 9:09 PM TAX RECORD CLERK Gender Identity Not on file Sexual Orientation [...] on filedocumented in this encounter Care Teams Shoe Worker Relationship Specialty Start Date End Date Malench, Kiran E., MD [address] [place] [address] PCP - General 02/26/17 01/25/19 Kiran Garvey MD [address] [place] [address] PCP - General 03/21/15 02/25/17 Lorena Taylor MD [address] [place] [address] PCP - General Family Practice 01/26/19 03/31/21 Dante Olivarez PA [address] [place] [address] PCP - General Physician Tight Cooper 04/01/21 06/09/21 Morro Doyle MD [address] [facility] [address] [place] [address] PCP - General Internal Medicine 06/10/21 10/07/21 Nancy Alvares NP [address] [place] [address] [id number] PCP - General Nurse Practitioner 10/08/21 documented as of this encounter
--- OUTSIDE RECORDS SUMMARY | 2025-03-08 18:14 | XMS_ITS | Encounter Summary ---
Author Organization [facility] Address [address] [place] [address] Phone Care Team Providers Care Wood Experimental Mechanic Name Role Phone Kiran Garvey MD Primary Care Provider + [phone] Kiran Garvey MD Primary Care Provider + [phone] Lorena Taylor MD Primary Care Provider + [phone] Dante Olivarez Primary Care Provider [phone] Morro Doyle MD Primary Care Provider +[phone] Nancy Alvares NP Primary Care Provider + [phone] Encounter Details Date Type Department Care Team (Latest Contact Info) Description 02/27/2011 Orders Only [facility] Scanning, Provider Social History Tobacco Use Types Packs/Day Years Used Date Smoking Tobacco: Never Assessed Comments Unknown Sex and Gender Information Value Date Recorded Sex Assigned at Not on file Legal Sex Female 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 Gender Identity Not on file Sexual Orientation [...] on filedocumented in this encounter Care Teams Wood Experimental Mechanic Relationship Specialty Start Date End Date Malench, Kiran E., MD [address] [place] [address] PCP - General 02/26/17 01/25/19 Kiran Garvey MD [address] [place] [address] PCP - General 03/21/15 02/25/17 Lorena Taylor MD [address] [place] [address] PCP - General Family Practice 01/26/19 03/31/21 Dante Olivarez PA [address] [place] [address] PCP - General Physician Sound Person 04/01/21 06/09/21 Morro Doyle MD [address] [facility] [address] [place] [address] PCP - General Internal Medicine 06/10/21 10/07/21 Nancy Alvares NP [address] [place] [address] [id number] PCP - General Nurse Practitioner 10/08/21 documented as of this encounter
--- OUTSIDE RECORDS SUMMARY | 2025-03-08 18:14 | XMS_ITS | Encounter Summary ---
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
--- OUTSIDE RECORDS SUMMARY | 2025-03-08 18:14 | XMS_ITS | Continuity of Care Document ---
Author Organization [facility] Address [address] [place] [address] [address] [place] [address] Phone Care Team Providers Care Hasher Machine Operator Name Role Phone Jin OD, Toby Unavailable Unavailable Procedures Procedure Date Office/outpatient Visit, [facility] Advance Directives Directive Yes / No Effective Date File Name No Information Encounters Encounter Description Practice Location Reason(s) For Visit Diagnoses Date Provider Providers Copied on Encounter Office/outpat ient Visit, [facility], [address], [place], [place], [id number], [place] tel:[phone] [facility] No Information 2-201 0 Jin OD Toby. [address] , [address], [place], [address], [place]. tel:[phone] Family History Family Member Type Diagnosis Age [...]
--- OUTSIDE RECORDS SUMMARY | 2025-03-08 18:14 | XMS_ITS | Encounter Summary ---
Author Organization [facility] Address [address] [place] [address] Phone Care Team Providers Care Incident Analyst Name Role Phone Kiran Garvey MD Primary Care Provider + [phone] Kiran Garvey MD Primary Care Provider + [phone] Lorena Taylor MD Primary Care Provider + [phone] Dante Olivarez Primary Care Provider [phone] Morro Doyle MD Primary Care Provider [phone] Nancy Alvares NP Primary Care Provider + [phone] Encounter Details Date Type Department Care Team (Latest Contact Info) Description 03/19/2015 Orders Only [facility] Scanning, Provider Social History Tobacco Use Types Packs/Day Years Used Date Smoking Tobacco: Never Assessed Comments Unknown Sex and Gender Information Value Date Recorded Sex Assigned at Not on file Legal 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 Gender Identity Not on file Sexual [...] on filedocumented in this encounter Care Teams Incident Analyst Relationship Specialty Start Date End Date Kiran Garvey MD [address] [place] [address] PCP - General 02/26/17 01/25/19 Kiran Garvey MD [address] [place] [address] PCP - General 03/21/15 02/25/17 Lorena Taylor MD [address] [place] [address] PCP - General Family Practice 01/26/19 03/31/21 Dante Olivarez, PA [address] [place] [address] PCP - General Physician Machine Compositor 04/01/21 06/09/21 Morro Doyle MD [address] [facility] [address] [place] [address] PCP - General Internal Medicine 06/10/21 10/07/21 Nancy Alvares FISHER TERRAPIN [address] [place] [address] PCP - General Nurse Practitioner 10/08/21 documented as of this encounter
--- OUTSIDE RECORDS SUMMARY | 2025-03-08 18:14 | XMS_ITS | Encounter Summary ---
Author Organization [facility] Address [address] [place] [address] Phone Care Team Providers Care Automobile Brakes Bonder Name Role Phone Kiran Garvey MD Primary Care Provider + [phone] Kiran Garvey MD Primary Care Provider + [phone] Lorena Taylor MD Primary Care Provider + [phone] Dante Olivarez Primary Care Provider [phone] Morro Doyle MD Primary Care Provider [phone] Nancy Alvares NP Primary Care Provider + [phone] Encounter Details Date Type Department Care Team (Latest Contact Info) Description 02/27/2015 Orders Only [facility] Scanning, Provider Social History Tobacco Use Types Packs/Day Years Used Date Smoking Tobacco: Never Assessed Comments Unknown Sex and Gender Information Value Date Recorded Sex Assigned at Not on file Legal Sex Female 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 Gender Identity Not on file Sexual Orientation [...] on filedocumented in this encounter Care Teams Automobile Brakes Bonder Relationship Specialty Start Date End Date Malench, Kiran E., MD [address] [place] [address] PCP - General 02/26/17 01/25/19 Kiran Garvey MD [address] [place] [address] PCP - General 03/21/15 02/25/17 Lorena Taylor MD [address] [place] [address] PCP - General Family Practice 01/26/19 03/31/21 Dante Olivarez PA [address] [place] [address] PCP - General Physician Pharmaceutical Development Technician 04/01/21 06/09/21 Morro Doyle MD [address] [facility] [address] [place] [address] PCP - General Internal Medicine 06/10/21 10/07/21 Nancy Alvares NP [address] [place] [id number] PCP - General Nurse Practitioner 10/08/21 documented as of this encounter
--- OUTSIDE RECORDS SUMMARY | 2025-03-08 18:14 | XMS_ITS | Encounter Summary ---
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
--- OUTSIDE RECORDS SUMMARY | 2025-03-08 18:14 | XMS_ITS | Referral Summary ---
Author Organization [facility] [address] Address [address] [place] [address] Care Team Providers Care Marble Worker Name Role Phone Nancy Alvares NP Primary Care Provider [phone] Encounters Date Type Department Care Team Description 02/28/2025 Orders Only [facility] Neurology [address] [place] [address] [place] [phone] Marlin Kirkland NP Paresthesia of skin 01/26/2025 4:00 PM LYE BATH OPERATOR Office Visit [facility] Neurology [address] [place] [address] [address] [place] [address] Marlin Kirkland NP Parkinson disease (HCC) (Primary Dx); Paresthesia of skin; Memory disturbance 12/22/2024 Telephone [facility] Gastroenterology [address] [place] [address] Medical Office [address] [place] [address] Ayanna Venegas RN GI path results 12/19/2024 8:30 AM LYE BATH OPERATOR - 12/19/2024 9:00 AM LYE BATH OPERATOR Surgery [facility] Endoscopy [address] [place] [address] Catrachito Link MD COLON BIOPSY 12/19/2024 8:43 AM LYE BATH OPERATOR Anesthesia Event [facility] Endoscopy [address] [place] [address] Grupo Orozco MD Boyle, Christine Michelle, CHILD'S NURSE 12/19/2024 7:11 AM LYE BATH OPERATOR - 12/19/2024 10:15 AM LYE BATH OPERATOR Hospital Encounter [facility] Endoscopy [address] [address] [place] [address] Catrachito Link MD Epigastric pain; Abdominal pain Discharge Disposition: Discharge to home or self care from Last 3 Months Allergies No known [...] (11/16/2022): Added automatically from request for surgery [id number] Family history of malignant neoplasm of gastrointestinal tract 11/16/2022 Overview (11/16/2022): Added automatically from request for surgery [id number] Parkinson disease 06/10/2021 Assessment & Plan (11/18/2021 4:42 PM LYE BATH OPERATOR): Patient continues at this time on [...] on file Legal Sex Female 9:09 PM LYE BATH OPERATOR Gender Identity Not on file Sexual Orientation Not on file Last Filed Vital Signs Vital Sign Reading Time Taken Comments Blood Pressure 119/79 01/26/2025 3:50 PM LYE BATH OPERATOR Pulse 93 01/26/2025 3:50 PM LYE BATH OPERATOR Temperature 36.3 C (97.3 F) 12/19/2024 9:15 AM LYE BATH OPERATOR Respiratory Rate 20 01/26/2025 3:50 PM LYE BATH OPERATOR Oxygen Saturation 97% 01/26/2025 3:50 PM LYE BATH OPERATOR Inhaled Oxygen Concentration - - Weight 90.7 kg (200 lb) 01/26/2025 3:50 PM LYE BATH OPERATOR Height 167.6 cm (5' 6 ) 01/26/2025 3:50 PM LYE BATH OPERATOR Body Mass Index 32.28 01/26/2025 3:50 PM LYE BATH OPERATOR Plan of Treatment Scheduled Procedures Name Priority Associated Diagnoses Date/Ti me COLONOSCOPY Colon cancer screening Procedures Procedure Name Priority Date/Time Associated Diagnosis Comments COLONOSCOPY 12/19/2024 8:53 AM LYE BATH OPERATOR SURGICAL PATHOLOGY Routine 12/19/2024 8:51 AM LYE BATH OPERATOR Epigastric pain Abdominal pain ESOPHAGOGASTRODUODENOSCOPY BIOPSY 12/19/2024 8:43 AM LYE BATH OPERATOR Epigastric pain Abdominal pain COLON BIOPSY 12/19/2024 8:43 AM LYE BATH OPERATOR Epigastric pain Abdominal pain EGD 12/19/2024 8:41 AM LYE BATH OPERATOR from Last 3 Months Results * Colonoscopy (12/19/2024 8:53 AM LYE BATH OPERATOR) Anatomical Region Laterality Modality Other Narrative Procedure Note Catrachito Link MD - 12/19/2024 8:53 AM CST ENDOSCOPY LAB Patient Name: Bijal Douglas Procedure Date: 12/19/2024 8:53 AM Date of : 1965 Admit Type: Outpatient Age: 59 Gender: Female Attending MD: Catrachito Link M.D. Room: [facility] ENDOSCOPY ROOM 04 Note Status: [...] The scope was passed under direct vision.The [id number] was introduced through the anusand advanced to [...] Final * Surgical pathology (12/19/2024 8:51 AM LYE BATH OPERATOR) Tissue specimen (specimen) (Gastric/Stomach biopsy) 12/19/2024 8:51 AM LYE BATH OPERATOR Tissue specimen (specimen) (Polyp(s), colon/colorectal, esophageal, gastric) 12/19/2024 9:04 AM LYE BATH OPERATOR Narrative PATHOLOGY [facility] - 12/21/2024 1:46 PM LYE BATH OPERATOR EPIC results best viewed via link to PDF [facility] [place] [address] Note to Patients: This report may contain [...] Gender: F : 1965 (Age: 59) Address: [address] [place], [place] [id number] Hospital #: [id number] Taken:12/19/2024 Received:12/19/2024 Reported: 12/21/2024 Patient Type: [facility] SAME Client [facility] Service: Gastro Location: Physician(s): Homer Hicks FNP Diagnosis: A. Stomach, random biopsy: - Antral mucosa with reactive epithelial changes. - No Helicobacter pylori is seen. B. Colon, polyps, polypectomy: - Polypoid colonic mucosa with lymphoid aggregate and reactive epithelial changes. [facility]/12/20/2024 13:00 By this signature, I [...] interpretation for this case was performed at [facility], Department of Surgical Pathology, [address] [facility] [place], [place] [id number], [place] [address] CLIA # [id number] The performance characteristics of some immunohistochemical stains, fluorescence in-situ hybridization tests and immunophenotyping by flow cytometry cited in this report (if any) were determined by the Surgical Pathology and Flow Cytometry Departments at [facility] as part of an ongoing software quality automation engineer program and in compliance with federally mandated [...] Surgical Pathology and Flow Cytometry Departments of [facility]. It has not been cleared or approved by the U. S. Food and Drug Administration. IMAGES AND SCANNED DOCUMENTS, IF INCLUDED, ONLY VIEWABLE IN PDF VERSION OF REPORT Catrachito Link MD LAB PATHOLOGY ORDERABLES F inal Result PATHOLOGY [facility] [phone] * EGD (12/19/2024 8:41 AM LYE BATH OPERATOR) Anatomical Region Laterality Modality Other Narrative Procedure Note Catrachito Link MD - 12/19/2024 8:41 AM CST ENDOSCOPY LAB Patient Name: Bijal Douglas Procedure Date: 12/19/2024 8:41 AM Date of : 1965 Admit Type: Outpatient Age: 59 Gender: Female Attending MD: Catrachito Link M.D. Room: [facility] ENDOSCOPY ROOM 04 Note Status: [...] and oxygen saturations were monitored continuously. The [id number] was introduced through the mouth,and advanced to [...] Final Result from Last 3 Months Insurance [employer] [place] [facility] Advance Directives For more information, please contact: [phone] * Full Code (Latest Code Status on File) Date Activated Date Inactivated Comments 12/19/2024 7:45 AM 12/19/2024 6:30 PM * Full Code Date Activated Date Inactivated Comments 11/18/2022 11:43 AM 11/18/2022 5:30 PM Care Teams Marble Worker Relationship Specialty Start Date End Date Nancy Alvares NP [address] [place] [address] PCP - General Nurse Practitioner 10/08/21
--- OUTSIDE RECORDS SUMMARY | 2025-03-08 18:14 | XMS_ITS | Encounter Summary ---
Author Organization [facility] Address [address] [place] [address] Phone Care Team Providers Care Structural Steel Trades Worker Name Role Phone Kiran Garvey MD Primary Care Provider + [phone] Kiran Garvey MD Primary Care Provider + [phone] Lorena Taylor MD Primary Care Provider + [phone] Dante Olivarez Primary Care Provider [phone] Morro Doyle MD Primary Care Provider [phone] Nancy Alvares NP Primary Care Provider + [phone] Encounter Details Date Type Department Care Team (Latest Contact Info) Description 10/26/2006 Orders Only [facility] Scanning, Provider Social History Tobacco Use Types Packs/Day Years Used Date Smoking Tobacco: Never Assessed Comments Unknown Sex and Gender Information Value Date Recorded Sex Assigned at Not on file Legal Sex Female 9:09 PM RECEPTIONIST TELEPHONE OPERATOR Gender Identity Not on file Sexual [...] on filedocumented in this encounter Care Teams Structural Steel Trades Worker Relationship Specialty Start Date End Date Malench, Kiran E., MD [address] [place] [address] PCP - General 02/26/17 01/25/19 Kiran Garvey MD [address] [place] [address] PCP - General 03/21/15 02/25/17 Lorena Taylor MD [address] [place] [address] PCP - General Family Practice 01/26/19 03/31/21 Dante Olivarez PA [address] [place] [address] PCP - General Physician District Branch Manager 04/01/21 06/09/21 Morro Doyle MD [address] [facility] [address] [place] [address] PCP - General Internal Medicine 06/10/21 10/07/21 Nancy Alvares NP [address] [place] [id number] PCP - General Nurse Practitioner 10/08/21 documented as of this encounter
--- OUTSIDE RECORDS SUMMARY | 2025-03-08 18:14 | XMS_ITS | Encounter Summary ---
Author Organization [facility] Address [address] [place] [address] Phone Care Team Providers Care Anglesmith Helper Name Role Phone Kiran Garvey MD Primary Care Provider + [phone] Kiran Garvey MD Primary Care Provider + [phone] Lorena Taylor MD Primary Care Provider + [phone] Dnate Olivarez Primary Care Provider [phone] Morro Doyle MD Primary Care Provider [phone] Nancy Alvares NP Primary Care Provider + [phone] Encounter Details Date Type Department Care Team (Latest Contact Info) Description 11/10/2006 Orders Only [facility] Scanning, Provider Social History Tobacco Use Types Packs/Day Years Used Date Smoking Tobacco: Never Assessed Comments Unknown Sex and Gender Information Value Date Recorded Sex Assigned at Not on file Legal Sex Female 9:09 PM EVENT REPRESENTATIVE Gender Identity Not on file Sexual [...] on filedocumented in this encounter Care Teams Anglesmith Helper Relationship Specialty Start Date End Date Malench, Kiran E., MD [address] [place] [address] PCP - General 02/26/17 01/25/19 Kiran Garvey MD [address] [place] [address] PCP - General 03/21/15 02/25/17 Lorena Taylor MD [address] [place] [address] PCP - General Family Practice 01/26/19 03/31/21 Dante Olivarez PA [address] [place] [address] PCP - General Physician Resource Development Director 04/01/21 06/09/21 Morro Doyle MD [address] [facility] [address] [place] [address] PCP - General Internal Medicine 06/10/21 10/07/21 Nancy Alvares NP [address] [place] [address] PCP - General Nurse Practitioner 10/08/21 documented as of this encounter
--- OUTSIDE RECORDS SUMMARY | 2025-03-08 18:14 | XMS_ITS | Encounter Summary ---
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 Gender Identity Not on file Sexual [...] on filedocumented in this encounter Care Teams Surgeon Partner Relationship Specialty Start Date End Date Lorena Taylor MD PCP - General Family Practice 01/26/19 03/31/21 Dante Olivarez, ALVERTO [address] [place] [address] PCP - General Physician [employer] Barista 04/01/21 06/09/21 Morro Doyle MD [address] [facility] [address] [place] [address] PCP - General Internal Medicine 06/10/21 10/07/21 Nancy Alvares, RODRICK [facility] [place] [address] PCP - General Nurse Practitioner 10/08/21 documented as of this encounter
--- OUTSIDE RECORDS SUMMARY | 2025-03-08 18:14 | XMS_ITS | Clinical Summary ---
Author Organization [facility] [address] Address [address] [place] [address] Care Team Providers Care Landfill Attendant Name Role Phone Nancy Alvares NP Primary Care Provider [phone] Allergies No known active allergies Medications losartan [...] (11/16/2022): Added automatically from request for surgery [id number] Family history of malignant neoplasm of gastrointestinal tract 11/16/2022 Overview (11/16/2022): Added automatically from request for surgery [id number] Parkinson disease 06/10/2021 Assessment & Plan (11/18/2021 4:42 PM FEED IN WORKER): Patient continues at this time on pramipexole [...] Department Care Team Description 02/28/2025 Orders Only [facility] Neurology [address] [place] [address] [address] [place] [address] Marlin Kirkland NP Paresthesia of skin 01/26/2025 4:00 PM FEED IN WORKER Office Visit [facility] Neurology [address] [place] [address] [address] [place] [address] Marlin Kirkland NP Parkinson disease (HCC) (Primary Dx); Paresthesia of skin; Memory disturbance 12/22/2024 Telephone [facility] Gastroenterology [address] [place] [address] Medical Office Building [address], [address] [place] [address] Ayanna Venegas, DEVIN GI path results 12/19/2024 8:43 AM FEED IN WORKER Anesthesia Event [facility] Endoscopy [address] [place] [address] Grupo Orozco MD Boyle, Christine Michelle, MOLD MAKER 12/19/2024 8:30 AM FEED IN WORKER - 12/19/2024 9:00 AM FEED IN WORKER Surgery [facility] Endoscopy [address] [place] [address] Catrachito Link MD COLON BIOPSY 12/19/2024 7:11 AM FEED IN WORKER - 12/19/2024 10:15 AM FEED IN WORKER Hospital Encounter [facility] Endoscopy [address] [place] [address] Catrachito Link MD Epigastric pain; Abdominal pain Discharge Disposition: Discharge to home or self care from Last 3 Months Surgical History Surgery [...] on file Legal Sex Female 9:09 PM FEED IN WORKER Gender Identity Not on file Sexual Orientation Not on file Obstetrics History Last Filed Vital Signs Vital Sign Reading Time Taken Comments Blood Pressure 119/79 01/26/2025 3:50 PM FEED IN WORKER Pulse 93 01/26/2025 3:50 PM FEED IN WORKER Temperature 36.3 C (97.3 F) 12/19/2024 9:15 AM FEED IN WORKER Respiratory Rate 20 01/26/2025 3:50 PM FEED IN WORKER Oxygen Saturation 97% 01/26/2025 3:50 PM FEED IN WORKER Inhaled Oxygen Concentration - - Weight 90.7 kg (200 lb) 01/26/2025 3:50 PM FEED IN WORKER Height 167.6 cm (5' 6 ) 01/26/2025 3:50 PM FEED IN WORKER Body Mass Index 32.28 01/26/2025 3:50 PM FEED IN WORKER Plan of Treatment Scheduled Procedures Name Priority [...] Associated Diagnosis Comments COLONOSCOPY 12/19/2024 8:53 AM FEED IN WORKER SURGICAL PATHOLOGY Routine 12/19/2024 8:51 AM FEED IN WORKER Epigastric pain Abdominal pain ESOPHAGOGASTRODUODENOSCOPY BIOPSY 12/19/2024 8:43 AM FEED IN WORKER Epigastric pain Abdominal pain COLON BIOPSY 12/19/2024 8:43 AM FEED IN WORKER Epigastric pain Abdominal pain EGD 12/19/2024 8:41 AM FEED IN WORKER from Last 3 Months Results * Colonoscopy (12/19/2024 8:53 AM FEED IN WORKER) Anatomical Region Laterality Modality Other Narrative Procedure Note Catrachito Link MD - 12/19/2024 8:53 AM CST ENDOSCOPY LAB Patient Name: Bijal Douglas Procedure Date: 12/19/2024 8:53 AM Date of : 1965 Admit Type: Outpatient Age: 59 Gender: Female Attending MD: Catrachito Link M.D. Room: [facility] ENDOSCOPY ROOM 04 Note Status: Finalized [...] The scope was passed under direct vision.The [id number] was introduced through the anusand advanced to [...] Final * Surgical pathology (12/19/2024 8:51 AM FEED IN WORKER) Tissue specimen (specimen) (Gastric/Stomach biopsy) 12/19/2024 8:51 AM FEED IN WORKER Tissue specimen (specimen) (Polyp(s), colon/colorectal, esophageal, gastric) 12/19/2024 9:04 AM FEED IN WORKER Narrative PATHOLOGY [facility] - 12/21/2024 1:46 PM FEED IN WORKER EPIC results best viewed via link to PDF [facility] [place] [address] Note to Patients: This report may contain [...] Gender: F : 1965 (Age: 59) Address: [address] [place] [address] Hospital #: [id number] Taken:12/19/2024 Received:12/19/2024 Reported: 12/21/2024 Patient Type: [facility] EP SAME Client [facility] Service: Gastro Location: Physician(s): Homer Hicks FNP Diagnosis: A. Stomach, random biopsy: - Antral mucosa with reactive epithelial changes. - No Helicobacter pylori is seen. B. Colon, polyps, polypectomy: - Polypoid colonic mucosa with lymphoid aggregate and reactive epithelial changes. [facility]/12/20/2024 13:00 By this signature, I [...] interpretation for this case was performed at [facility], Department of Surgical Pathology, [address] [facility] [place], [place] [id number], [place] [address] CLIA # [id number] The performance characteristics of some immunohistochemical stains, fluorescence in-situ hybridization tests and immunophenotyping by flow cytometry cited in this report (if any) were determined by the Surgical Pathology and Flow Cytometry Departments at [facility] as part of an ongoing quality assurance supervisor trim program and in compliance with federally mandated [...] Surgical Pathology and Flow Cytometry Departments of [facility]. It has not been cleared or approved by the U. S. Food and Drug Administration. IMAGES AND SCANNED DOCUMENTS, IF INCLUDED, ONLY VIEWABLE IN PDF VERSION OF REPORT us Catrachito Link MD LAB PATHOLOGY ORDERABLES F inal Result PATHOLOGY [facility] [phone] * EGD (12/19/2024 8:41 AM FEED IN WORKER) Anatomical Region Laterality Modality Other Narrative Procedure Note Catrachito Link MD - 12/19/2024 8:41 AM CST ENDOSCOPY LAB Patient Name: Bijal Douglas Procedure Date: 12/19/2024 8:41 AM Date of : 1965 Admit Type: Outpatient Age: 59 Gender: Female Attending MD: Catrachito Link M.D. Room: [facility] ENDOSCOPY ROOM 04 Note Status: Finalized [...] and oxygen saturations were monitored continuously. The [id number] was introduced through the mouth,and advanced to [...] Final Result from Last 3 Months Insurance [employer] [facility] [employer] [place] Advance Directives For more information, please contact: [phone] * Full Code (Latest Code Status on File) Date Activated Date Inactivated Comments 12/19/2024 7:45 AM 12/19/2024 6:30 PM * Full Code Date Activated Date Inactivated Comments 11/18/2022 11:43 AM 11/18/2022 5:30 PM Care Teams Landfill Attendant Relationship Specialty Start Date End Date Nancy Alvares NP [address] [place] [address] PCP - General Nurse Practitioner 10/08/21
--- OUTSIDE RECORDS SUMMARY | 2025-03-08 18:14 | XMS_ITS | Clinical Summary ---
Author Organization [facility] Address [address] [place] [address] Care Team Providers Care Arresting Gear Operator Name Role Phone Unavailable Primary Care Provider Unavailabl e Source Comments [facility],non-owned Affiliates and Associated Physician Practices is amultiple site organization consisting of ambulatory clinics and hospital sitesin [place], [place], [place] and [place]. This disclosure is being madepursuant to the Care Everywhere program and may not contain all information available regarding this patient. Last updated 18.[facility] Social History Tobacco Use Types Packs/Day Years [...] VACCINE ( - 2023-2 5 season) 2024 DEPRESSION SCREENING 11/29/2024 INFLUENZA VACCINE (Season Ended) 2025 Respiratory Syncytial Virus (RSV) Vaccine Pt: or [...]
--- OUTSIDE RECORDS SUMMARY | 2025-03-08 18:14 | XMS_ITS | Encounter Summary ---
Author Organization [facility] Address [address] [place] [address] Care Team Providers Care Big Machine Consultant Name Role Phone Unavailable Primary Care Provider Unavailabl e Encounter Details Date Type Department Care Team (Late st Contact Info) Description 10/12/2024 Lab Requisition [facility] - DermPath Lab [address] [facility], [place] [address] Bharati Jason DO [address] [facility] [address] [place] [address] Social History Tobacco Use Types Packs/Day Years [...] Diagnosis Comments DERMATOPATHOLOGY Routine 10/12/2024 2:07 PM SAMPLE SELECTOR documented in this encounter Results * DERMATOPATHOLOGY (10/12/2024 2:07 PM SAMPLE SELECTOR) Case Report Dermatopathology Report Case: [id number] Authorizing Provider: Bharati Jason DO Collected: 10/12/2024 02:07 PM Ordering Location: [facility] - Received: 10/13/2024 11:00 AM DermPath Lab Pathologist: Kerry Garcia MD Specimen: Skin, left medial cheek 4 12:27 PM SAMPLE SELECTOR DERMATOPATHOLOGY LABORATORY Final Diagnosis Specimen A. SKIN, left medial cheek: ACTINIC KERATOSIS (L57.0) 4 12:27 PM SAMPLE SELECTOR DERMATOPATHOLOGY LABORATORY Clinical History R/O BCC 12:27 PM [facility] DERMATOPATHOLOGY LABORATORY Gross Description Specimen A: Received is one formalin filled container labeled with the patient's name and designated left medial cheek. The specimen consists of a shave biopsy measuring 4x2x1 mm. Jar 0. 12:27 PM [facility] DERMATOPATHOLOGY LABORATORY Microscopic Description Specimen A. SKIN, left medial cheek: There is focal parakeratosis. The lower half of the epidermis shows disorderly maturation of keratinocytes with nuclear pleomorphism. 12:27 PM [facility] DERMATOPATHOLOGY LABORATORY Disclaimer An external and internal positive and negative controls are appropriate for the histochemical, immunohistochemical and immunofluorescence stain(s) in this case (if any), except where stated explicitly. The performance characteristics of the stain(s) cited in this report were developed and its performance characteristic determined by the Dermatopathology Laboratory at [facility], directed by Dr. Pebbles Leavitt. These tests need not be, and therefore are not, approved by the [place] Food and Drug Administration. The tests are used for clinical purposes. Billing Codes Specimen Charges Stain Charges 25730 1 12:27 PM [facility] DERMATOPATHOLOGY LABORATORY Embedded Images 12:27 PM [facility] DERMATOPATHOLOGY LABORATORY Pathology/Cytolo gy TISSUE SPECIMEN FROM SKIN / Unknown 10/12/2024 2:07 PM SAMPLE SELECTOR 10/13/2024 11:00 AM SAMPLE SELECTOR Bharati Jason DO LAB - PATHOLOGY/C YTOLOGY ORDERABLES DERMATOPATHOLOGY LABORATORY [facility] - Department of Dermatology [address], [address] [phone] documented in this encounter Visit Diagnoses Not on filedocumented in this encounter
--- OUTSIDE RECORDS SUMMARY | 2025-03-08 18:14 | XMS_ITS | Encounter Summary ---
Author Organization [facility] Address [address] [place] [address] Phone Care Team Providers Care Insurance Actuary Name Role Phone Kiran Garvey MD Primary Care Provider + [phone] Kiran Garvey MD Primary Care Provider + [phone] Lorena Taylor MD Primary Care Provider + [phone] Dante Olivarez Primary Care Provider [phone] Morro Doyle MD Primary Care Provider [phone] Nancy Alvares NP Primary Care Provider + [phone] Encounter Details Date Type Department Care Team (Latest Contact Info) Description 02/11/2004 Orders Only [facility] Scanning, Provider Social History Tobacco Use Types Packs/Day Years Used Date Smoking Tobacco: Never Assessed Comments Unknown Sex and Gender Information Value Date Recorded Sex Assigned at Not on file Legal Sex Female 9:09 PM DIRECTOR OF CAREER RESOURCES Gender Identity Not on file Sexual Orientation [...] on filedocumented in this encounter Care Teams Insurance Actuary Relationship Specialty Start Date End Date Malench, Kiran E., MD [address] [place] [address] PCP - General 02/26/17 01/25/19 Kiran Garvey MD [address] [place] [address] PCP - General 03/21/15 02/25/17 Lorena Taylor MD [address] [place] [address] PCP - General Family Practice 01/26/19 03/31/21 Dante Olivarez PA [address] [place] [address] PCP - General Physician Patient Safety Tech 04/01/21 06/09/21 Morro Doyle MD [address] [facility] [address] [place] [address] PCP - General Internal Medicine 06/10/21 10/07/21 Nancy Alvares NP [address] [place] [address] [id number] PCP - General Nurse Practitioner 10/08/21 documented as of this encounter
--- OUTSIDE RECORDS SUMMARY | 2025-03-08 18:14 | XMS_ITS | Encounter Summary ---
Author Organization [facility] Address [address] [place] [address] Phone Care Team Providers Care Health Physics Technician Name Role Phone Kiran Garvey MD Primary Care Provider + [phone] Kiran Garvey MD Primary Care Provider + [phone] Lorena Taylor MD Primary Care Provider + [phone] Dante Olivarez Primary Care Provider [phone] Morro Doyle MD Primary Care Provider [phone] Nancy Alvares NP Primary Care Provider + [phone] Encounter Details Date Type Department Care Team (Latest Contact Info) Description 02/10/2007 Orders Only [facility] Scanning, Provider Social History Tobacco Use Types Packs/Day Years Used Date Smoking Tobacco: Never Assessed Comments Unknown Sex and Gender Information Value Date Recorded Sex Assigned at Not on file Legal Sex Female 9:09 PM GAME ENGINEER Gender Identity Not on file Sexual [...] on filedocumented in this encounter Care Teams Health Physics Technician Relationship Specialty Start Date End Date Malench, Kiran E., MD [address] [place] [address] PCP - General 02/26/17 01/25/19 Kiran Garvey MD [address] [place] [address] PCP - General 03/21/15 02/25/17 Lorena Taylor MD [address] [place] [address] PCP - General Family Practice 01/26/19 03/31/21 Dante Olivarez PA [address] [place] [address] PCP - General Physician Shuttle Bus Driver 04/01/21 06/09/21 Morro Doyle MD [address] [facility] [address] [place] [address] PCP - General Internal Medicine 06/10/21 10/07/21 Nancy Alvares NP [address] [place] [address] [id number] PCP - General Nurse Practitioner 10/08/21 documented as of this encounter
--- OUTSIDE RECORDS SUMMARY | 2025-03-08 18:14 | XMS_ITS | Encounter Summary ---
Author Organization [facility] Address [address] [place] [address] Phone Care Team Providers Care Drug Abuse Social Worker Name Role Phone Kiran Garvey MD Primary Care Provider + [phone] Kiran Garvey MD Primary Care Provider + [phone] Lorena Taylor MD Primary Care Provider + [phone] Dante Olivarez Primary Care Provider [phone] Morro Doyle MD Primary Care Provider [phone] Nancy Alvares NP Primary Care Provider + [phone] Encounter Details Date Type Department Care Team (Latest Contact Info) Description 11/23/2006 Orders Only [facility] Scanning, Provider Social History Tobacco Use Types Packs/Day Years Used Date Smoking Tobacco: Never Assessed Comments Unknown Sex and Gender Information Value Date Recorded Sex Assigned at Not on file Legal Sex Female 9:09 PM FIELD 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 Gender Identity Not on file Sexual Orientation [...] on filedocumented in this encounter Care Teams Drug Abuse Social Worker Relationship Specialty Start Date End Date Malench, Kiran E., MD [address] [place] [address] PCP - General 02/26/17 01/25/19 Kiran Garvey MD [address] [place] [address] PCP - General 03/21/15 02/25/17 Lorena Taylor MD [address] [place] [address] PCP - General Family Practice 01/26/19 03/31/21 Dante Olivarez PA [address] [place] [address] PCP - General Physician Pediatric Registered Nurse 04/01/21 06/09/21 Morro Doyle MD [address] [facility] [address] [place] [address] PCP - General Internal Medicine 06/10/21 10/07/21 Nancy Alvares NP [address] [place] [id number] PCP - General Nurse Practitioner 10/08/21 documented as of this encounter
--- OUTSIDE RECORDS SUMMARY | 2025-03-08 18:14 | XMS_ITS | Encounter Summary ---
Author Organization [facility] Address [address] [place] [address] Phone Care Team Providers Care Court Recording Monitor Name Role Phone Kiran Garvey MD Primary Care Provider + [phone] Kiran Garvey MD Primary Care Provider + [phone] Lorena Taylor MD Primary Care Provider + [phone] Dante Olivarez Primary Care Provider [phone] Morro Doyle MD Primary Care Provider [phone] Nancy Alvares NP Primary Care Provider + [phone] Encounter Details Date Type Department Care Team (Latest Contact Info) Description 04/13/2005 Orders Only [facility] Scanning, Provider Social History Tobacco Use Types Packs/Day Years Used Date Smoking Tobacco: Never Assessed Comments Unknown Sex and Gender Information Value Date Recorded Sex Assigned at Not on file Legal Sex Female 9:09 PM MIXED ANIMAL 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 Gender Identity Not on file Sexual Orientation [...] on filedocumented in this encounter Care Teams Court Recording Monitor Relationship Specialty Start Date End Date Malench, Kiran E., MD [address] [place] [address] PCP - General 02/26/17 01/25/19 Kiran Garvey MD [address] [place] [address] PCP - General 03/21/15 02/25/17 Lorena Taylor MD [address] [place] [address] PCP - General Family Practice 01/26/19 03/31/21 Dante Olivarez PA [address] [place] [address] PCP - General Physician Tree Feller Operator 04/01/21 06/09/21 Morro Doyle MD [address] [facility] [address] [place] [address] PCP - General Internal Medicine 06/10/21 10/07/21 Nancy Alvares NP [address] [place] [id number] PCP - General Nurse Practitioner 10/08/21 documented as of this encounter
--- NOTE | 2025-03-08 18:58 | PC.NURSE ---
Pt called for triage, no response
--- NOTE | 2025-03-08 19:50 | PC.NURSE ---
PT was called 3x for triage w/ no answer at 1857, 1925, and 1950.
--- OUTSIDE RECORDS SUMMARY | 2025-03-08 20:54 | XMS_ITS | Encounter Summary ---
Author Organization [facility] Address [address] [place] [address] Care Team Providers Care Vegetable Loader Machine Operator Name Role Phone Nancy Alvares Primary Care Provider [phone] Encounter Details Date Type Department Care Team (Latest Contact Info) Description 09/22/2022 Pazienhart Message Enc [facility] Family & Internal Medicine [facility] [address] [place] [address] Nancy Alvares FNP [address] [place], [place] [id number] Parts Delivery Driver Referral Social History Tobacco Use Types Packs/Day [...] CDT Gender Identity Female 12/23/2021 9:01 AM DITTO MACHINE OPERATOR Sexual Orientation Straight 12/23/2021 9: 01 AM DITTO MACHINE OPERATOR COVID-19 Exposure Response Date Recorded In the [...] Visit [facility] Family & Internal [address] [address] Nancy Alvares FNP [address] [place] [address] 09/20/2025 11:00 AM CDT Office Visit [facility] Internal [address] [address] Nancy Alvares FNP [address] [place] [address] documented as of this encounter Visit Diagnoses Not on filedocumented in this encounter Additional Health Concerns Infection Onset Date Last Indicated Resolved Time COVID-19 Rule Out 03/08/2025 03/08/2025 Respiratory Rule-Out 03/08/2025 03/08/2025 Assessment Noted Time PHQ-9 Depression Total Score: 12 021 12:38 PM CDT documented as of this encounter Care Teams Vegetable Loader Machine Operator Relationship Specialty Start Date End Date Nancy Alvares FNP [address] [place] [address] PCP - General Nurse Practitioner Family 09/12/21 documented as of this encounter
--- OUTSIDE RECORDS SUMMARY | 2025-03-08 20:54 | XMS_ITS | Continuity of Care Document ---
Author Organization [facility] Address [address] [place] [address] [address] [place] [address] Phone Care Team Providers Care Costume Shop Manager Name Role Phone Jin OD, Toby Unavailable Unavailable Procedures Procedure Date Office/outpatient Visit, [facility] Advance Directives Directive Yes / No Effective Date File Name No Information Encounters Encounter Description Practice Location Reason(s) For Visit Diagnoses Date Provider Providers Copied on Encounter Office/outpat ient Visit, [facility], [address], [place], [place], [id number], [place] tel:[phone] [facility] No Information 2-201 0 Jin OD Toby. [address] , [address], [place], [address], [place]. tel:[phone] Family History Family Member Type Diagnosis Age [...]
--- OUTSIDE RECORDS SUMMARY | 2025-03-08 20:54 | XMS_ITS | Encounter Summary ---
Author Organization [facility] Address [address] [place] [address] Phone Care Team Providers Care Landscape Photographer Name Role Phone Kiran Garvey MD Primary Care Provider + [phone] Kiran Garvey MD Primary Care Provider + [phone] Lorena Taylor MD Primary Care Provider + [phone] Dante Olivarez Primary Care Provider [phone] Morro Doyle MD Primary Care Provider [phone] Nancy Alvares NP Primary Care Provider + [phone] Encounter Details Date Type Department Care Team (Latest Contact Info) Description 09/27/2009 Orders Only [facility] Scanning, Provider Social History Tobacco Use Types Packs/Day Years Used Date Smoking Tobacco: Never Assessed Comments Unknown Sex and Gender Information Value Date Recorded Sex Assigned at Not on file Legal Sex Female 9:09 PM ADMISSIONS ASSISTANT Gender Identity Not on file Sexual [...] on filedocumented in this encounter Care Teams Landscape Photographer Relationship Specialty Start Date End Date Malench, Kiran E., MD [address] [place] [address] PCP - General 02/26/17 01/25/19 Kiran Garvey MD [address] [place] [address] PCP - General 03/21/15 02/25/17 Lorena Taylor MD [address] [place] [address] PCP - General Family Practice 01/26/19 03/31/21 Dante Olivarez PA [address] [place] [address] PCP - General Physician Qlikview Developer 04/01/21 06/09/21 Morro Doyle MD [address] [facility] [address] [place] [address] PCP - General Internal Medicine 06/10/21 10/07/21 Nancy Alvares NP [address] [place] [address] [id number] PCP - General Nurse Practitioner 10/08/21 documented as of this encounter
--- OUTSIDE RECORDS SUMMARY | 2025-03-08 20:54 | XMS_ITS | Encounter Summary ---
Author Organization [facility] Address [address] [place] [address] Phone Care Team Providers Care Manager Utility Name Role Phone Kiran Garvey MD Primary Care Provider + [phone] Kiran Garvey MD Primary Care Provider + [phone] Lorena Taylor MD Primary Care Provider + [phone] Dante Olivarez Primary Care Provider [phone] Morro Doyle MD Primary Care Provider [phone] Nancy Alvares NP Primary Care Provider + [phone] Encounter Details Date Type Department Care Team (Latest Contact Info) Description 04/16/2006 Orders Only [facility] Scanning, Provider Social History Tobacco Use Types Packs/Day Years Used Date Smoking Tobacco: Never Assessed Comments Unknown Sex and Gender Information Value Date Recorded Sex Assigned at Not on file Legal Sex Female 9:09 PM CHIMNEY BUILDER Gender Identity Not on file Sexual Orientation [...] filedocumented in this encounter Care Teams Manager Utility Relationship Specialty Start Date End Date Malench, Kiran E., MD [address] [place] [address] PCP - General 02/26/17 01/25/19 Kiran Garvey MD [address] [place] [address] PCP - General 03/21/15 02/25/17 Lorena Taylor MD [address] [place] [address] PCP - General Family Practice 01/26/19 03/31/21 Dante Olivarez PA [address] [place] [address] PCP - General Physician Family Development Specialist 04/01/21 06/09/21 Morro Doyle MD [address] [facility] [address] [place] [address] PCP - General Internal Medicine 06/10/21 10/07/21 Nancy Alvares NP [address] [place] [address] [phone] PCP - General Nurse Practitioner 10/08/21 documented as of this encounter
--- OUTSIDE RECORDS SUMMARY | 2025-03-08 20:54 | XMS_ITS | Encounter Summary ---
Author Organization [facility] Address [address] [place] [address] Phone Care Team Providers Care Skip Locator Name Role Phone Kiran Garvey MD Primary Care Provider + [phone] Kiran Garvey MD Primary Care Provider + [phone] Lorena Taylor MD Primary Care Provider + [phone] Dante Olivarez Primary Care Provider [phone] Morro Doyle MD Primary Care Provider [phone] Nancy Alvares NP Primary Care Provider + [phone] Encounter Details Date Type Department Care Team (Latest Contact Info) Description 02/27/2015 Orders Only [facility] Scanning, Provider Social History Tobacco Use Types Packs/Day Years Used Date Smoking Tobacco: Never Assessed Comments Unknown Sex and Gender Information Value Date Recorded Sex Assigned at Not on file Legal Sex Female 9:09 PM LIFE TEACHER Gender Identity Not on file Sexual Orientation [...] on filedocumented in this encounter Care Teams Skip Locator Relationship Specialty Start Date End Date Malench, Kiran E., MD [address] [place] [address] PCP - General 02/26/17 01/25/19 Kiran Garvey MD [address] [place] [address] PCP - General 03/21/15 02/25/17 Lorena Taylor MD [address] [place] [address] PCP - General Family Practice 01/26/19 03/31/21 Dante Olivarez PA [address] [place] [address] PCP - General Physician Digital Retoucher 04/01/21 06/09/21 Morro Doyle MD [address] [facility] [address] [place] [address] PCP - General Internal Medicine 06/10/21 10/07/21 Nancy Alvares NP [address] [place] [address] [id number] PCP - General Nurse Practitioner 10/08/21 documented as of this encounter
--- OUTSIDE RECORDS SUMMARY | 2025-03-08 20:54 | XMS_ITS | Encounter Summary ---
Author Organization [facility] Address [address] [place] [address] Care Team Providers Care Technical Designer Name Role Phone Nancy Alvraes Primary Care Provider [phone] Encounter Details Date Type Department Care Team (Late st Contact Info) Description 07/08/2023 Akorri Networkshart Message Enc [facility] Family & Internal [address] [phone] Nancy Alvares FNP [address] [place] [phone] Copy of updated insurance card Social History [...] CDT Gender Identity Female 12/23/2021 9:01 AM PEER COUNSELOR Sexual Orientation Straight 12/23/2021 9: 01 AM PEER COUNSELOR documented as of this encounter Plan of Treatment Upcoming Encounters Date Type Department Care Team (Late Contact Info) Description 03/13/2025 11:20 AM CDT Office Visit [facility] Family & Internal Medicine [address] [phone] Nancy Alvares FNP [address] [place] [address] [phone] 09/20/2025 11:00 AM CDT Office Visit [facility] Family & Internal Medicine - [place] [address] [place] [address] Nancy Alvares FNP [address] [place] [address] documented as of this encounter Visit Diagnoses Not on filedocumented in this encounter Additional Health Concerns Infection Onset Date Last Indicated Resolved Time COVID-19 Rule Out 03/08/2025 03/08/2025 Respiratory Rule-Out 03/08/2025 03/08/2025 Assessment Noted Time PHQ-9 Depression Total Score: 12 021 12:38 PM CDT documented as of this encounter Care Teams Technical Designer Relationship Specialty Start Date End Date Nancy Alvares FNP [address] [place] [address] PCP - General Nurse Practitioner Family 09/12/21 documented as of this encounter
--- OUTSIDE RECORDS SUMMARY | 2025-03-08 20:54 | XMS_ITS | Encounter Summary ---
Author Organization [facility] Address [address] [place] [address] Care Team Providers Care Electronic Systems Technician Name Role Phone Nancy Alvares Primary Care Provider Encounter Details Date Type Department Care Team (Late st Contact Info) Description 10/12/2024 MyCGenOilt Message Enc [facility] Family & Internal Medicine [facility] [address] [place] [address] Nancy Alvares FNP [facility] [place], [place] [phone] EDG & Colonoscopy Referral Social History Tobacco [...] CDT Gender Identity Female 12/23/2021 9:01 AM RECREATIONAL SPORTS DIRECTOR Sexual Orientation Straight 12/23/2021 9: 01 AM RECREATIONAL SPORTS DIRECTOR documented as of this encounter Progress Notes * KIANNA Denis - 10/17/2024 3:33 PM CST Oh I thought she wanted a GI referral? EATIONAL SPORTS DIRECTOR * Lian Marrufo - 10/12/2024 12:41 PM CST Patient called back and wanted to speak to Nancy about this referral. Everyone is a lunch so I told her that someone will give her a call once the message has been read. EATIONAL SPORTS DIRECTOR documented in this encounter Plan of Treatment Upcoming Encounters Date Type Department Care Team (Late st Contact Info) Description 03/13/2025 11:20 AM CDT Office Visit [facility] Family & Internal [address] [address] Nancy Alvares FNP [address] [place] [address] 09/20/2025 11:00 AM CDT Office Visit [facility] Internal [address] [address] Nancy Alvares FNP [address] [place] [address] documented as of this encounter Visit Diagnoses Not on filedocumented in this encounter Additional Health Concerns Infection Onset Date Last Indicated Resolved Time COVID-19 Rule Out 03/08/2025 03/08/2025 Respiratory Rule-Out 03/08/2025 03/08/2025 Assessment Noted Time PHQ-9 Depression Total Score: 21 023 4:28 PM RECREATIONAL SPORTS DIRECTOR documented as of this encounter Care Teams Electronic Systems Technician Relationship Specialty Start Date End Date Nancy Alvares FNP [address] [place] [address] PCP - General Nurse Practitioner Family 09/12/21 documented as of this encounter
--- OUTSIDE RECORDS SUMMARY | 2025-03-08 20:54 | XMS_ITS | Encounter Summary ---
Author Organization [facility] Address [address] [place] [address] Care Team Providers Care Senior Marketing Analyst Name Role Phone Unavailable Primary Care Provider Unavailabl e Encounter Details Date Type Department Care Team (Late st Contact Info) Description 10/12/2024 Lab Requisition [facility] - DermPath Lab [address] [facility], [place] [address] Bharati Jason DO [address] [facility] [address] [place] [address] Social History Tobacco Use Types Packs/Day Years [...] Diagnosis Comments DERMATOPATHOLOGY Routine 10/12/2024 2:07 PM UTILIZATION SPECIALIST documented in this encounter Results * DERMATOPATHOLOGY (10/12/2024 2:07 PM UTILIZATION SPECIALIST) Case Report Dermatopathology Report Case: [id number] Authorizing Provider: Bharati Jason DO Collected: 10/12/2024 02:07 PM Ordering Location: [facility] - Received: 10/13/2024 11:00 AM DermPath Lab Pathologist: Kerry Garcia MD Specimen: Skin, left medial cheek 4 12:27 PM UTILIZATION SPECIALIST DERMATOPATHOLOGY LABORATORY Final Diagnosis Specimen A. SKIN, left medial cheek: ACTINIC KERATOSIS (L57.0) 4 12:27 PM UTILIZATION SPECIALIST DERMATOPATHOLOGY LABORATORY Clinical History R/O BCC 12:27 PM [facility] DERMATOPATHOLOGY LABORATORY Gross Description Specimen A: Received is one formalin filled container labeled with the patient's name and designated left medial cheek. The specimen consists of a shave biopsy measuring 4x2x1 mm. Jar 0. 12:27 PM [facility] DERMATOPATHOLOGY LABORATORY Microscopic Description Specimen A. SKIN, left medial cheek: There is focal parakeratosis. The lower half of the epidermis shows disorderly maturation of keratinocytes with nuclear pleomorphism. 12:27 PM [facility] DERMATOPATHOLOGY LABORATORY Disclaimer An external and internal positive and negative controls are appropriate for the histochemical, immunohistochemical and immunofluorescence stain(s) in this case (if any), except where stated explicitly. The performance characteristics of the stain(s) cited in this report were developed and its performance characteristic determined by the Dermatopathology Laboratory at [facility], directed by Dr. Pebbles Leavitt. These tests need not be, and therefore are not, approved by the [place] Food and Drug Administration. The tests are used for clinical purposes. Billing Codes Specimen Charges Stain Charges 22767 1 12:27 PM [facility] DERMATOPATHOLOGY LABORATORY Embedded Images 12:27 PM [facility] DERMATOPATHOLOGY LABORATORY Pathology/Cytolo gy TISSUE SPECIMEN FROM SKIN / Unknown 10/12/2024 2:07 PM UTILIZATION SPECIALIST 10/13/2024 11:00 AM UTILIZATION SPECIALIST Bharati Jason DO LAB - PATHOLOGY/C YTOLOGY ORDERABLES DERMATOPATHOLOGY LABORATORY [facility] - Department of Dermatology [address], [address] [phone] documented in this encounter Visit Diagnoses Not on filedocumented in this encounter
--- OUTSIDE RECORDS SUMMARY | 2025-03-08 20:54 | XMS_ITS | Encounter Summary ---
Author Organization [facility] Address [address] [place] [address] Care Team Providers Care Chain Forming Machine Operator Name Role Phone Nancy Alvares Primary Care Provider [phone] Encounter Details Date Type Department Care Team (Late st Contact Info) Description 03/16/2024 MyChart Message Enc [facility] Family & Internal Medicine [facility] [address] [place] [phone] Nancy Alvares FNP [address] [place], [place] [phone] Rolled Ankle Social History Tobacco Use Types [...] CDT Gender Identity Female 12/23/2021 9:01 AM PLIER WORKER Sexual Orientation Straight 12/23/2021 9: 01 AM PLIER WORKER documented as of this encounter Progress Notes * Sammie Ricks RN - 03/17/2024 1:58 PM CDT Patient I going to go to walk in clinic in [place]. Opportunity given for all questions to be [...] Description 03/13/2025 11:20 AM CDT [facility] Family & Internal [address] [phone] Nancy Alvares FNP [address] [place] [address] 09/20/2025 11:00 AM CDT Office [facility] Family & Internal [address] [address] Nancy Alvares FNP [address] [place] [address] documented as of this encounter Visit Diagnoses Not on filedocumented in this encounter Additional Health Concerns Infection Onset Date Last Indicated Resolved Time COVID-19 Rule Out 03/08/2025 03/08/2025 Respiratory Rule-Out 03/08/2025 03/08/2025 Assessment Noted Time PHQ-9 Depression Total Score: 21 023 4:28 PM PLIER WORKER documented as of this encounter Care Teams Chain Forming Machine Operator Relationship Specialty Start Date End Date Nancy Alvares FNP [address] [place] [address] PCP - General Nurse Practitioner Family 09/12/21 documented as of this encounter
--- OUTSIDE RECORDS SUMMARY | 2025-03-08 20:54 | XMS_ITS | Encounter Summary ---
Author Organization [facility] Address [address] [place] [address] Care Team Providers Care Electronic Parts Salesperson Name Role Phone Nancy Alvares Primary Care Provider [phone] Encounter Details Date Type Department Care Team (Late Contact Info) Description 11/26/2023 MyChart Message Enc [facility] Family & Internal Medicine [facility] [address] [place] [phone] Nancy Alvares FNP [address] [place], [place] [phone] Coughing Social History Tobacco Use Types Packs/Day [...] CDT Gender Identity Female 12/23/2021 9:01 AM RAT POISONER Sexual Orientation Straight 12/23/2021 9: 01 AM RAT POISONER documented as of this encounter Progress Notes * KIANNA Denis - 11/26/2023 2:28 PM CST I will send it out but yes test for covid POISONER documented in this encounter Plan of Treatment Upcoming Encounters Date Type Department Care Team (Late st Contact Info) Description 03/13/2025 11:20 AM CDT Office Visit [facility] Family & Internal Medicine [place] [address] [place] [address] Nancy Alvares FNP [facility] [address] 09/20/2025 11:00 AM CDT Office Visit [facility] Family & Internal Medicine - [address] [phone] Nancy Alvares FNP [address] [place] [address] documented as of this encounter Visit Diagnoses Not on filedocumented in this encounter Additional Health Concerns Infection Onset Date Last Indicated Resolved Time COVID-19 Rule Out 03/08/2025 03/08/2025 Respiratory Rule-Out 03/08/2025 03/08/2025 Assessment Noted Time PHQ-9 Depression Total Score: 21 023 4:28 PM RAT POISONER documented as of this encounter Care Teams Electronic Parts Salesperson Relationship Specialty Start Date End Date Nancy Alvares FNP [address] [place] [address] PCP - General Nurse Practitioner Family 09/12/21 documented as of this encounter
--- OUTSIDE RECORDS SUMMARY | 2025-03-08 20:54 | XMS_ITS | Encounter Summary ---
Author Organization [facility] Address [address] [place] [address] Phone Care Team Providers Care Qi Specialist Name Role Phone Kiran Garvey MD Primary Care Provider + [phone] Kiran Garvey MD Primary Care Provider + [phone] Lorena Taylor MD Primary Care Provider + [phone] Dante Olivarez Primary Care Provider [phone] Morro Doyle MD Primary Care Provider [phone] Nancy Alvares NP Primary Care Provider + [phone] Encounter Details Date Type Department Care Team (Latest Contact Info) Description 03/19/2015 Orders Only [facility] Scanning, Provider Social History Tobacco Use Types Packs/Day Years Used Date Smoking Tobacco: Never Assessed Comments Unknown Sex and Gender Information Value Date Recorded Sex Assigned at Not on file Legal Sex Female 9:09 PM BEVERAGE SPECIALIST Gender Identity Not on file Sexual [...] on filedocumented in this encounter Care Teams Qi Specialist Relationship Specialty Start Date End Date Kiran Garvey MD [address] [place] [address] PCP - General 02/26/17 01/25/19 Kiran Garvey MD [address] [place] [address] PCP - General 03/21/15 02/25/17 Lorena Taylor MD [address] [place] [address] PCP - General Family Practice 01/26/19 03/31/21 Dante Olivarez, PA [address] [place] [address] PCP - General Physician Paraprofessional Aide 04/01/21 06/09/21 Morro Doyle MD [address] [facility] [address] [place] [address] PCP - General Internal Medicine 06/10/21 10/07/21 Nancy Alvares KNURLING MACHINE TENDER [address] [place] [address] PCP - General Nurse Practitioner 10/08/21 documented as of this encounter
--- OUTSIDE RECORDS SUMMARY | 2025-03-08 20:54 | XMS_ITS | Referral Summary ---
Author Organization [facility] [address] Address [address] [place] [address] Care Team Providers Care Automation Application Engineer Name Role Phone Nancy Alvares NP Primary Care Provider [phone] Encounters Date Type Department Care Team Description 02/28/2025 Orders Only [facility] Neurology [address] [place] [address] [place] [phone] Marlin Kirkland NP Paresthesia of skin 01/26/2025 4:00 PM ENGINEERING PROGRAM ANALYST Office Visit [facility] Neurology [address] [place] [address] [address] [place] [address] Marlin Kirkland NP Parkinson disease (HCC) (Primary Dx); Paresthesia of skin; Memory disturbance 12/22/2024 Telephone [facility] Gastroenterology [address] [place] [address] Medical Office Building [address], [address] [place] [address] Ayanna Venegas RN GI path results 12/19/2024 8:30 AM ENGINEERING PROGRAM ANALYST - 12/19/2024 9:00 AM ENGINEERING PROGRAM ANALYST Surgery [facility] Endoscopy [address] [place] [address] Catrachito Link MD COLON BIOPSY 12/19/2024 8:43 AM ENGINEERING PROGRAM ANALYST Anesthesia Event [facility] Endoscopy [address] [place] [address] Grupo Orozco MD Boyle, Christine Michelle, MANUFACTURING ENGINEERING MANAGER 12/19/2024 7:11 AM ENGINEERING PROGRAM ANALYST - 12/19/2024 10:15 AM ENGINEERING PROGRAM ANALYST Hospital Encounter [facility] Endoscopy [address] [address] [address] Catrachito Link MD Epigastric pain; Abdominal pain [...] (11/16/2022): Added automatically from request for surgery [id number] Family history of malignant neoplasm of gastrointestinal tract 11/16/2022 Overview (11/16/2022): Added automatically from request for surgery [id number] Parkinson disease 06/10/2021 Assessment & Plan (11/18/2021 4:42 PM ENGINEERING PROGRAM ANALYST): Patient continues at this time on pramipexole [...] file Legal Sex Female 9:09 PM ENGINEERING PROGRAM ANALYST Gender Identity Not on file Sexual Orientation Not on file Last Filed Vital Signs Vital Sign Reading Time Taken Comments Blood Pressure 119/79 01/26/2025 3:50 PM ENGINEERING PROGRAM ANALYST Pulse 93 01/26/2025 3:50 PM ENGINEERING PROGRAM ANALYST Temperature 36.3 C (97.3 F) 12/19/2024 9:15 AM ENGINEERING PROGRAM ANALYST Respiratory Rate 20 01/26/2025 3:50 PM ENGINEERING PROGRAM ANALYST Oxygen Saturation 97% 01/26/2025 3:50 PM ENGINEERING PROGRAM ANALYST Inhaled Oxygen Concentration - - Weight 90.7 kg (200 lb) 01/26/2025 3:50 PM ENGINEERING PROGRAM ANALYST Height 167.6 cm (5' 6 ) 01/26/2025 3:50 PM ENGINEERING PROGRAM ANALYST Body Mass Index 32.28 01/26/2025 3:50 PM ENGINEERING PROGRAM ANALYST Plan of Treatment Scheduled Procedures Name Priority Associated Diagnoses Date/Ti me COLONOSCOPY Colon cancer screening Procedures Procedure Name Priority Date/Time Associated Diagnosis Comments COLONOSCOPY 12/19/2024 8:53 AM ENGINEERING PROGRAM ANALYST SURGICAL PATHOLOGY Routine 12/19/2024 8:51 AM ENGINEERING PROGRAM ANALYST Epigastric pain Abdominal pain ESOPHAGOGASTRODUODENOSCOPY BIOPSY 12/19/2024 8:43 AM ENGINEERING PROGRAM ANALYST Epigastric pain Abdominal pain COLON BIOPSY 12/19/2024 8:43 AM ENGINEERING PROGRAM ANALYST Epigastric pain Abdominal pain EGD 12/19/2024 8:41 AM ENGINEERING PROGRAM ANALYST from Last 3 Months Results * Colonoscopy (12/19/2024 8:53 AM ENGINEERING PROGRAM ANALYST) Anatomical Region Laterality Modality Other Narrative Procedure Note Catrachito Link MD - 12/19/2024 8:53 AM CST ENDOSCOPY LAB Patient Name: Bijal Douglas Procedure Date: 12/19/2024 8:53 AM Date of : 1965 Admit Type: Outpatient Age: 59 Gender: Female Attending MD: Catrachito Link M.D. Room: [facility] ENDOSCOPY ROOM 04 Note Status: Finalized Procedure: [...] The scope was passed under direct vision.The [id number] was introduced through the anusand advanced to [...] Final * Surgical pathology (12/19/2024 8:51 AM ENGINEERING PROGRAM ANALYST) Tissue specimen (specimen) (Gastric/Stomach biopsy) 12/19/2024 8:51 AM ENGINEERING PROGRAM ANALYST Tissue specimen (specimen) (Polyp(s), colon/colorectal, esophageal, gastric) 12/19/2024 9:04 AM ENGINEERING PROGRAM ANALYST Narrative PATHOLOGY [facility] - 12/21/2024 1:46 PM ENGINEERING PROGRAM ANALYST EPIC results best viewed via link to PDF [facility] [place] [address] Note to Patients: This report may contain [...] Gender: F : 1965 (Age: 59) Address: [address] [place], [place] [id number] Hospital #: [id number] Taken:12/19/2024 Received:12/19/2024 Reported: 12/21/2024 Patient Type: [facility] SAME Client [facility] Service: Gastro Location: Physician(s): Homer Hicks FNP Diagnosis: A. Stomach, random biopsy: - Antral mucosa with reactive epithelial changes. - No Helicobacter pylori is seen. B. Colon, polyps, polypectomy: - Polypoid colonic mucosa with lymphoid aggregate and reactive epithelial changes. [facility]/12/20/2024 13:00 By this signature, I attest [...] interpretation for this case was performed at [facility], Department of Surgical Pathology, [address] [facility] [address], [place] [id number], [place] [address] CLIA # [id number] The performance characteristics of some immunohistochemical stains, fluorescence in-situ hybridization tests and immunophenotyping by flow cytometry cited in this report (if any) were determined by the Surgical Pathology and Flow Cytometry Departments at [facility] as part of an ongoing quality control projectionist program and in compliance with federally mandated [...] Surgical Pathology and Flow Cytometry Departments of [facility]. It has not been cleared or approved by the U. S. Food and Drug Administration. IMAGES AND SCANNED DOCUMENTS, IF INCLUDED, ONLY VIEWABLE IN PDF VERSION OF REPORT Catrachito Link MD LAB PATHOLOGY ORDERABLES F inal Result PATHOLOGY [facility] [phone] * EGD (12/19/2024 8:41 AM ENGINEERING PROGRAM ANALYST) Anatomical Region Laterality Modality Other Narrative Procedure Note Catrachito Link MD - 12/19/2024 8:41 AM CST ENDOSCOPY LAB Patient Name: Bijal Douglas Procedure Date: 12/19/2024 8:41 AM Date of : 1965 Admit Type: Outpatient Age: 59 Gender: Female Attending MD: Catrachito Link M.D. Room: [facility] ENDOSCOPY ROOM 04 Note Status: Finalized Procedure: Upper GI endoscopy Indications: Abdominal pain Providers: Catrachito iLnk M.D. Referring MD: Palomo Aly Medicines: Monitored [...] and oxygen saturations were monitored continuously. The [id number] was introduced through the mouth,and advanced to [...] Final Result from Last 3 Months Insurance [employer] MD [facility] Advance Directives For more information, please contact: [phone] * Full Code (Latest Code Status on File) Date Activated Date Inactivated Comments 12/19/2024 7:45 AM 12/19/2024 6:30 PM * Full Code Date Activated Date Inactivated Comments 11/18/2022 11:43 AM 11/18/2022 5:30 PM Care Teams Automation Application Engineer Relationship Specialty Start Date End Date Nancy Alvares NP [address] [place] [address] PCP - General Nurse Practitioner 10/08/21
--- OUTSIDE RECORDS SUMMARY | 2025-03-08 20:54 | XMS_ITS | Encounter Summary ---
Author Organization [facility] Address [address] [place] [address] Care Team Providers Care Bed Manager Name Role Phone Nancy Alvares KIANNA Primary Care Provider Reason for Referral * Imaging (Emergency) - New Request Specialty Diagnoses / Procedures Referred By Nel ann Referred To Contact RADIOLOGY Procedures CT ABD+PEL W IV CON ONLY Joy Gupta NP [address] [place] [address] Phone: tel: fax: Referral ID Status Reason Start Date Expiration Date V isits Requested Visits Authorized [id number] New Request 03/08/2025 03/08/2026 1 1 Reason for Visit * Reason Comments Vomiting Flu Like Symptoms Ankle Pain Syncope Encounter Details Date Type Department Care Team (Late st Contact Info) Description 03/08/2025 7:41 PM CDT - Present Emergency [facility] [place] [address] Иван Malave MD [address] [place] [address] Vomiting; Flu Like Symptoms; Ankle Pain; Syncope Social History Tobacco Use Types Packs/Day Years [...] CDT Gender Identity Female 12/23/2021 9:01 AM CALENDAR CONTROL CLERK BLOOD BANK Sexual Orientation Straight 12/23/2021 9: 01 AM CALENDAR CONTROL CLERK BLOOD BANK documented as of this encounter Last Filed Vital Signs Vital Sign Reading Time Taken Comments Blood Pressure 113/68 03/08/2025 8:15 PM CDT Pulse 96 03/08/2025 8:15 PM CDT Temperature 37.7 C (99.9 F) 03/08/2025 8:15 PM CDT Respiratory Rate 16 03/08/2025 8:15 PM CDT Oxygen Saturation 96% 03/08/2025 8:15 PM CDT Inhaled Oxygen Concentration - - Weight 89.4 kg (197 lb) 03/08/2025 7:20 PM CDT Height 167.6 cm (5' 6 ) 03/08/2025 7:20 PM CDT Body Mass Index 31.8 03/08/2025 7:20 PM CDT documented in this encounter ED Notes * Joy Gupta NP - 03/08/2025 7:19 PM CDT [place], [place] EMERGENCY DEPARTMENT ENCOUNTER Medical Screening Examination 03/08/25 7:19 PM Chief Complaint : Vomiting, Flu Like Symptoms, Ankle Pain, and Syncope HPI : Bijal Douglas is a 59-year-old female who presents with complaints of nausea, vomiting and diarrhea. States that she woke up this morning and was not feeling well. Went to outside hospital via EMS and left due to wait time. Vital Signs: There were no vitals filed for this visit. Physical exam: A brief physical exam was completed to facilitate/expedite patient care. Plan: Necessary labs/imaging/medications ordered to initiate pt care. Joy Gupta NP 03/08/251919 Cosigned by Eris Gutierrez MD at 03/08/2025 7:25 PM CDT * Blank Gan RN - 03/08/2025 7:16 PM CDT Pt states was biba to [facility] for flu-like symptoms that started at 0330 today. Pt presents to this ED due to stating not receiving any care at [place] with IV in place from EMS. Pt statessymptoms started at 0330 today and that she at one point had a syncopal episode in the bath in which she hit her right knee and right ankle. Pt states one episode of vomiting and multiple episodes ofdiarrhea with abdominal pain documented in this encounter Plan of Treatment Upcoming Encounters Date Type Department Care Team (Late st Contact Info) Description 03/13/2025 11:20 AM CDT Office Visit [facility] Family & Internal Medicine [address] [address] Nancy Alvares FNP [address] [place] [address] 09/20/2025 11:00 AM CDT Office Visit [facility] Family & Internal [address] [address] Nancy Alvares [address] [address] Pending Results Name Type Priority Associated Diagnoses Date /Time CBC W/DIFF AUTOMATED Lab STAT 02/27 8:25 PM CDT COMPREHENSIVE METABOLIC PANEL Lab STAT 03/08/2025 8:25 PM CDT LIPASE Lab STAT 03/08/2025 8:2 5 PM CDT MAGNESIUM Lab STAT 03/08/2025 8:2 5 PM CDT TROPONIN, QUANT Lab STAT 5 8:25 PM CDT ECG 12 lead EKG-NonRad Routine 03/08/2025 8: 04 PM CDT XR ANKLE RT M3V Imaging STAT 5 8:00 PM CDT XR CHEST PORTABLE Imaging STAT 025 8:00 PM CDT TSH W/REFLEX Lab STAT 03/08/2025 8 :25 PM CDT LACTIC ACID W REFLEX (SEPSIS) Lab STAT 03/08/2025 8:[address] ABD+PEL W IV CON ONLY CT STAT 03/08/2025 8:43 PM CDT XR KNEE RT 3V Imaging STAT 03/08/2025 8:36 PM CDT Scheduled Orders Name Type Priority Associated Diagnoses Orde r Schedule CBC W/DIFF AUTOMATED Lab STAT Once for 1 Occurrences starting 03/08/2025 until 03/08/2025 COMPREHENSIVE METABOLIC PANEL Lab STAT Once for 1 Occurrences starting 03/08/2025 until 03/08/2025 LIPASE Lab STAT Once for 1 Occurrences starting 03/08/2025 until 03/08/2025 MAGNESIUM Lab STAT Once for 1 Occurrences starting 03/08/2025 until 03/08/2025 URINALYSIS Lab STAT Today for 1 Occurrences starting 03/08/2025 until 03/08/2025 TROPONIN, QUANT Lab STAT Once for 1 Occurrences starting 03/08/2025 until 03/08/2025 XR ANKLE RT M3V Imaging Today One time imaging One time imaging for 1 Occurrences starting 03/08/2025 until 03/08/2025 XR CHEST PORTABLE Imaging STAT One harvey e imaging One time imaging for 1 Occurrences starting 03/08/2025 until 03/08/2025 TSH W/REFLEX Lab STAT Once for 1 Occurrences starting 03/08/2025 until 03/08/2025 CORONAVIRUS (COVID 19) Microbiology Routine Once for 1 Occurrences starting 03/08/2025 until 03/08/2025 INFLUENZA A & B Microbiology Routine STAT fo r 1 Occurrences starting 03/08/2025 until 03/08/2025 LACTIC ACID W REFLEX (SEPSIS) Lab STAT Once for 1 Occurrences starting 03/08/2025 until 03/08/2025 CT ABD+PEL W IV CON ONLY CT STAT One time imaging One time imaging for 1 Occurrences starting 03/08/2025 until 03/08/2025 CULTURE URINE Microbiology STAT Once for 1 Occurrences starting 03/08/2025 until 03/08/2025 CULTURE, BACTERIA, BLOOD Microbiology Routine Today for 1 Occurrences starting 03/08/2025 until 03/08/2025 CULTURE, BACTERIA, BLOOD Microbiology Routine Today for 1 Occurrences starting 03/08/2025 until 03/08/2025 XR KNEE RT 3V Imaging STAT One time im aging One time imaging for 1 Occurrences starting 03/08/2025 until 03/08/2025 documented as of this encounter Procedures * The patient is currently admitted. The information in this section might not be complete until the patient is discharged. Procedure Name Priority Date/Time Associated Diagnosis Comments ECG 12-LEAD Routine 03/08/2025 8:04 PM CDT Procedure Note - 03/08/2025 8:04 PM CDTThis note is in progress. [address] Test Date: 2025-03-08 Pat Name: BIJAL DOUGLAS Department: 41 Room: [facility] Gender: Female Firebrick Layer: : 1965 Requested By: JOY GUPTA Order Number: [id number] Reading MD: Measurements Intervals Oxford Rate: 102 P: 52 GA: 154 QRS: 14 QRSD: 102 T: 71 QT: 291 QTc: 379 Interpretive Statements SINUS TACHYCARDIA NONSPECIFIC T-WAVE ABNORMALITY ABNORMAL RHYTHM ECG Compared to ECG 02/13/2022 16:04:01 T-wave abnormality now present Sinus rhythm no longer present Ventricular premature complex(es) no longer present documented in this encounter Visit Diagnoses Not on filedocumented in this encounter Administered Medications Inactive Administered Medications - up to 3 most recent administrations Medication Order MAR Action Action Date Dose Rate Site iopamidol (ISOVUE-370) 76 % injection 100 mL 100 mL, Intravenous, IMG once as needed, Contrast, 1 dose, Starting on Flakita 03/08/25 at 2042, Until Flakita 03/08/25 at 2042 Given 03/08/2025 8:43 PM CDT 100 mLs ondansetron (ZOFRAN) injection 4 mg 4 mg, Intravenous, Once, 1 dose, On Flakita 03/08/25 at 1930, IV push over 2-5 minutes. Given 03/08/2025 8:35 PM CDT 4 mg documented in this encounter Active and Recently Administered Medications Times are shown in CDT. Scheduled Medication Order 03/06/2025 03/07/2025 03/08/2025 acetaminophen (TYLENOL) tablet 650 mg 650 mg, Oral, Once, 1 dose, On Flakita 03/08/25 at 2044, Maximum dose of acetaminophen is 4000 mg from all sources in 24 hours. 2044 (Due) ondansetron (ZOFRAN) injection 4 mg (COMPLETED) 4 mg, Intravenous, Once, 1 dose, On Flakita 03/08/25 at 1930, IV push over 2-5 minutes. 2034 (Given - Provid er: Jadyn Watson, RN) sodium chloride 0.9% bolus infusion 1,000 mL 1,000 mL, Intravenous, Administer over 60 Minutes, Once, 1 dose, On Flakita 03/08/25 at 1930 1930 (Due) PRN Medication Order 03/06/2025 03/07/2025 03/08/2025 iopamidol (ISOVUE-370) 76 % injection 100 mL (COMPLETED) 100 mL, Intravenous, IMG once as needed, Contrast, 1 dose, Starting on Flakita 03/08/25 at 2042, Until Flakita 03/08/25 at 2042 2042 (Given - Provid er: Viki Malhotra RTR) documented in this encounter Additional Health Concerns Infection Onset Date Last Indicated Resolved Time COVID-19 Rule Out 03/08/2025 03/08/2025 Respiratory Rule-Out 03/08/2025 03/08/2025 Assessment Noted Time PHQ-9 Depression Total Score: 21 023 4:28 PM CALENDAR CONTROL CLERK BLOOD BANK documented as of this encounter Care Teams Bed Manager Relationship Specialty Start Date End Date Nancy Alvares FNP [address] [place] [address] PCP - General Nurse Practitioner Family 09/12/21 documented as of this encounter
--- OUTSIDE RECORDS SUMMARY | 2025-03-08 20:54 | XMS_ITS | Encounter Summary ---
Author Organization [facility] Address [address] [place] [address] Care Team Providers Care Veterans Services Specialist Name Role Phone Nancy Alvares Primary Care Provider [phone] Encounter Details Date Type Department Care Team (Late st Contact Info) Description 11/09/2022 Botanical Tanshart Message Enc [facility] Family & Internal [address] [phone] Nancy Alvares FNP [address] [place] [address] [phone] Bladder infection Social History Tobacco Use Types [...] CDT Gender Identity Female 12/23/2021 9:01 AM ORDER PROCESSING CLERK Sexual Orientation Straight 12/23/2021 9: 01 AM ORDER PROCESSING CLERK documented as of this encounter Plan of Treatment Upcoming Encounters Date Type Department Care Team (Late st Contact Info) Description 03/13/2025 11:20 AM CDT Office Visit [facility] Family & Internal [address] [phone] Nancy Alvares FNP [address] [place] [address] 09/20/2025 11:00 AM CDT Office Visit [facility] Family & Internal Medicine - [address] [address] Nancy Alvares FNP [facility] [place] [address] documented as of this encounter Visit Diagnoses Not on filedocumented in this encounter Additional Health Concerns Infection Onset Date Last Indicated Resolved Time COVID-19 Rule Out 03/08/2025 03/08/2025 Respiratory Rule-Out 03/08/2025 03/08/2025 Assessment Noted Time PHQ-9 Depression Total Score: 12 021 12:38 PM CDT documented as of this encounter Care Teams Veterans Services Specialist Relationship Specialty Start Date End Date Nancy Alvares FNP [address] [place] [address] PCP - General Nurse Practitioner Family 09/12/21 documented as of this encounter
--- OUTSIDE RECORDS SUMMARY | 2025-03-08 20:54 | XMS_ITS | Clinical Summary ---
Author Organization [facility] Address [address] [place] [address] Care Team Providers Care Model And Pattern Supervisor Name Role Phone Unavailable Primary Care Provider Unavailabl e Source Comments [facility],non-owned Affiliates and Associated Physician Practices is amultiple site organization consisting of ambulatory clinics and hospital sitesin [place], [place]. This disclosure is being madepursuant to the Care Everywhere program and may not contain all information available regarding this patient. Last updated 18.[facility] Social History Tobacco Use Types Packs/Day Years [...]
--- OUTSIDE RECORDS SUMMARY | 2025-03-08 20:54 | XMS_ITS | Encounter Summary ---
Author Organization [facility] Address [address] [place] [address] Phone Care Team Providers Care Pv Installer Tech Name Role Phone Kiran Garvey MD Primary Care Provider + [phone] Kiran Garvey MD Primary Care Provider + [phone] Lorena Taylor MD Primary Care Provider + [phone] Dante Olivarez Primary Care Provider [phone] Morro Doyle MD Primary Care Provider [phone] Nancy Alvares NP Primary Care Provider + [phone] Encounter Details Date Type Department Care Team (Latest Contact Info) Description 11/10/2006 Orders Only [facility] Scanning, Provider Social History Tobacco Use Types Packs/Day Years Used Date Smoking Tobacco: Never Assessed Comments Unknown Sex and Gender Information Value Date Recorded Sex Assigned at Not on file Legal Sex Female 9:09 PM 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 Gender Identity Not on file Sexual [...] on filedocumented in this encounter Care Teams Pv Installer Tech Relationship Specialty Start Date End Date Malench, Kiran E., MD [address] [place] [address] PCP - General 02/26/17 01/25/19 Kiran Garvey MD [address] [place] [address] PCP - General 03/21/15 02/25/17 Lorena Taylor MD [address] [place] [address] PCP - General Family Practice 01/26/19 03/31/21 Dante Olivarez PA [address] [place] [address] PCP - General Physician Operator Engineer 04/01/21 06/09/21 Morro Doyle MD [address] [facility] [address] [place] [address] PCP - General Internal Medicine 06/10/21 10/07/21 Nancy Alvares NP [address] [place] [address] [phone] PCP - General Nurse Practitioner 10/08/21 documented as of this encounter
--- OUTSIDE RECORDS SUMMARY | 2025-03-08 20:54 | XMS_ITS | Encounter Summary ---
Author Organization [facility] Address [address] [place] [address] Care Team Providers Care Juice Scaleman Name Role Phone Nancy Alvares Primary Care Provider [phone] Encounter Details Date Type Department Care Team (Late st Contact Info) Description 02/18/2022 MyChart Message Enc [facility] Medical Group Family & Internal Medicine [facility] [address] [place] [address] Nancy Alvares FNP [address] [place], [place] [phone] Bladder infection Social History Tobacco Use Types [...] Gender Identity Female 12/23/2021 9:01 AM RN CORRECTIONAL Sexual Orientation Straight 12/23/2021 9: 01 AM RN CORRECTIONAL COVID-19 Exposure Response Date Recorded In the [...] [facility] Family & Internal [address] [phone] Nancy Alvares FNP [address] [place] [address] 09/20/2025 11:00 AM CDT Office Visit [facility] Family & Internal [address] [phone] Nancy Alvares FNP [address] [place] [address] documented as of this encounter Visit Diagnoses Not on filedocumented in this encounter Additional Health Concerns Infection Onset Date Last Indicated Resolved Time COVID-19 Rule Out 03/08/2025 03/08/2025 Respiratory Rule-Out 03/08/2025 03/08/2025 Assessment Noted Time PHQ-9 Depression Total Score: 12 021 12:38 PM CDT documented as of this encounter Care Teams Juice Scaleman Relationship Specialty Start Date End Date Nancy Alvares FNP [address] [place] [phone] PCP - General Nurse Practitioner Family 09/12/21 documented as of this encounter
--- OUTSIDE RECORDS SUMMARY | 2025-03-08 20:54 | XMS_ITS | Encounter Summary ---
Author Organization [facility] Address [address] [place] [address] Phone Care Team Providers Care Lace Pinner Name Role Phone Kiran Garvey MD Primary Care Provider + [phone] Kiran Garvey MD Primary Care Provider + [phone] Lorena Taylor MD Primary Care Provider + [phone] Dante Olivarez Primary Care Provider [phone] Morro Doyle MD Primary Care Provider [phone] Nancy Alvares NP Primary Care Provider + [phone] Encounter Details Date Type Department Care Team (Latest Contact Info) Description 10/26/2006 Orders Only [facility] Scanning, Provider Social History Tobacco Use Types Packs/Day Years Used Date Smoking Tobacco: Never Assessed Comments Unknown Sex and Gender Information Value Date Recorded Sex Assigned at Not on file Legal Sex Female 9:09 PM PERSONNEL 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 Gender Identity Not on file Sexual Orientation [...] on filedocumented in this encounter Care Teams Lace Pinner Relationship Specialty Start Date End Date Malench, Kiran E., MD [address] [place] [address] PCP - General 02/26/17 01/25/19 Kiran Garvey MD [address] [place] [address] PCP - General 03/21/15 02/25/17 Lorena Taylor MD [address] [place] [address] PCP - General Family Practice 01/26/19 03/31/21 Dante Olivarez PA [address] [place] [address] PCP - General Physician Cow Puncher 04/01/21 06/09/21 Morro Doyle MD [address] [facility] [address] [place] [address] PCP - General Internal Medicine 06/10/21 10/07/21 Nancy Alvares NP [address] [place] [id number] PCP - General Nurse Practitioner 10/08/21 documented as of this encounter
--- OUTSIDE RECORDS SUMMARY | 2025-03-08 20:54 | XMS_ITS | Encounter Summary ---
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
--- OUTSIDE RECORDS SUMMARY | 2025-03-08 20:54 | XMS_ITS | Encounter Summary ---
Author Organization [facility] Address [address] [place] [address] Care Team Providers Care Table Setter Name Role Phone Nancy Alvares Primary Care Provider [phone] Encounter Details Date Type Department Care Team (Late Contact Info) Description 12/24/2021 Noovo Message Enc [facility] Family & Internal Medicine [address] [phone] [facility] Provider Appointment Reschedule Social History Tobacco Use [...] CDT Gender Identity Female 12/23/2021 9:01 AM REPEATER OPERATOR Sexual Orientation Straight 12/23/2021 9: 01 AM REPEATER OPERATOR documented as of this encounter Plan of Treatment Upcoming Encounters Date Type Department Care Team (Late Contact Info) Description 03/13/2025 11:20 AM CDT Office Visit [facility] Family & Internal [address] [phone] Nancy Alvares FNP [address] [place] [phone] 09/20/2025 11:00 AM CDT Office Visit [facility] Family & Internal Medicine - [place] [address] [place] [address] Nancy Alvares FNP [address] [place] [address] documented as of this encounter Visit Diagnoses Not on filedocumented in this encounter Additional Health Concerns Infection Onset Date Last Indicated Resolved Time COVID-19 Confirmed 12/12/2021 12/12/2021 12:34 AM REPEATER OPERATOR COVID-19 Rule Out 03/08/2025 03/08/2025 Respiratory Rule-Out 03/08/2025 03/08/2025 Assessment Noted Time PHQ-9 Depression Total Score: 12 021 12:38 PM CDT documented as of this encounter Care Teams Table Setter Relationship Specialty Start Date End Date Nancy Alvares FNP [address] [place] [address] PCP - General Nurse Practitioner Family 09/12/21 documented as of this encounter
--- OUTSIDE RECORDS SUMMARY | 2025-03-08 20:54 | XMS_ITS | Encounter Summary ---
Author Organization [facility] Address [address] [place] [address] Phone Care Team Providers Care Housekeeper And Laundry Assistant Name Role Phone Lorena Taylor MD Primary Care Provider + [phone] Dante Olivarez Primary Care Provider [phone] Morro Doyle MD Primary Care Provider [phone] Nancy Alvares NP Primary Care Provider + [phone] Encounter Details Date Type Department Care Team [...] on file Legal Sex Female 9:09 PM EQUIPMENT CLEANER Gender Identity Not on file Sexual Orientation [...] on filedocumented in this encounter Care Teams Housekeeper And Laundry Assistant Relationship Specialty Start Date End Date Lorena Taylor MD PCP - General Family Practice 01/26/19 03/31/21 Dante Olivarez, ALVERTO [address] [place] [address] PCP - General Physician Heel Seat Sander 04/01/21 06/09/21 Morro Doyle MD [address] [facility] [address] [place] [address] PCP - General Internal Medicine 06/10/21 10/07/21 Nancy Alvares, RODRICK [facility] [place] [address] PCP - General Nurse Practitioner 10/08/21 documented as of this encounter
--- OUTSIDE RECORDS SUMMARY | 2025-03-08 20:54 | XMS_ITS | Encounter Summary ---
Author Organization [facility] Address [address] [place] [address] Phone Care Team Providers Care Campus President Name Role Phone Morro Doyle MD Primary Care Provider [phone] Nancy Alvares NP Primary Care Provider + [phone] Encounter Details Date Type Department Care Team [...] on file Legal Sex Female 9:09 PM CROOK OPERATOR Gender Identity Not on file Sexual [...] on filedocumented in this encounter Care Teams Campus President Relationship Specialty Start Date End Date Morro Doyle MD [address] [place] [address] PCP - General Internal Medicine 06/10/21 10/07/21 Nancy Alvares NP [address] [place] [address] PCP - General Nurse Practitioner 10/08/21 documented as of this encounter
--- OUTSIDE RECORDS SUMMARY | 2025-03-08 20:54 | XMS_ITS | Encounter Summary ---
Author Organization [facility] Address [address] [place] [address] Care Team Providers Care Second Watch Sergeant Name Role Phone Nancy Alvares Primary Care Provider [phone] Encounter Details Date Type Department Care Team (Late Contact Info) Description 09/20/2024 [employer] Message Enc [facility] Family & Internal [address] [address] [place] Provider XR results Social History Tobacco [...] CDT Gender Identity Female 12/23/2021 9:01 AM INTERNET AND E BUSINESS PROJECT MANAGER Sexual Orientation Straight 12/23/2021 9: 01 AM INTERNET AND E BUSINESS PROJECT MANAGER documented as of this encounter Plan of Treatment Upcoming Encounters Date Type Department Care Team (Late Contact Info) Description 03/13/2025 11:20 AM CDT Office [facility] Family & Internal [address] [address] Nancy Alvares FNP [address] [place] [id number] 09/20/2025 11:00 AM CDT Office [facility] Family & Internal Medicine - [address] [address] Nancy Alvares FNP [address] [place] [address] documented as of this encounter Visit Diagnoses Not on filedocumented in this encounter Additional Health Concerns Infection Onset Date Last Indicated Resolved Time COVID-19 Rule Out 03/08/2025 03/08/2025 Respiratory Rule-Out 03/08/2025 03/08/2025 Assessment Noted Time PHQ-9 Depression Total Score: 21 023 4:28 PM INTERNET AND E BUSINESS PROJECT MANAGER documented as of this encounter Care Teams Second Watch Sergeant Relationship Specialty Start Date End Date Nancy Alvares FNP [address] [place] [address] PCP - General Nurse Practitioner Family 09/12/21 documented as of this encounter
--- OUTSIDE RECORDS SUMMARY | 2025-03-08 20:54 | XMS_ITS | Encounter Summary ---
Author Organization [facility] Address [address] [place] [address] Care Team Providers Care Precision Machinist Name Role Phone Nancy Alvares Primary Care Provider [phone] Encounter Details Date Type Department Care Team (Late st Contact Info) Description 03/16/2022 MyChart Message Enc [facility] Family & Internal Medicine [facility] [address] [place] [address] Nancy Alvares FNP [address] [place], [place] [phone] Left knee severe pain Social History Tobacco [...] CDT Gender Identity Female 12/23/2021 9:01 AM GIFT MANAGER Sexual Orientation Straight 12/23/2021 9: 01 AM GIFT MANAGER COVID-19 Exposure Response Date Recorded In [...] Description 03/13/2025 11:20 AM CDT Office Visit [facility] Family & Internal [address] [address] Nancy Alvares FNP [address] [place] [address] 09/20/2025 11:00 AM CDT Office Visit [facility] Internal [address] [address] Nancy Alvares FNP [facility] [place] [address] documented as of this encounter Visit Diagnoses Not on filedocumented in this encounter Additional Health Concerns Infection Onset Date Last Indicated Resolved Time COVID-19 Rule Out 03/08/2025 03/08/2025 Respiratory Rule-Out 03/08/2025 03/08/2025 Assessment Noted Time PHQ-9 Depression Total Score: 12 021 12:38 PM CDT documented as of this encounter Care Teams Precision Machinist Relationship Specialty Start Date End Date Nancy Alvares FNP [address] [place] [address] PCP - General Nurse Practitioner Family 09/12/21 documented as of this encounter
--- OUTSIDE RECORDS SUMMARY | 2025-03-08 20:54 | XMS_ITS | Encounter Summary ---
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
--- OUTSIDE RECORDS SUMMARY | 2025-03-08 20:54 | XMS_ITS | Clinical Summary ---
Author Organization [facility] [address] Address [address] [place] [address] Care Team Providers Care Lens Engraver Name Role Phone Nancy Alvares NP Primary [...] (11/16/2022): Added automatically from request for surgery [id number] Family history of malignant neoplasm of gastrointestinal tract 11/16/2022 Overview (11/16/2022): Added automatically from request for surgery [id number] Parkinson disease 06/10/2021 Assessment & Plan (11/18/2021 4:42 PM WELL DRILL OPERATOR HELPER CABLE TOOL): Patient continues at this time on pramipexole [...] Department Care Team Description 02/28/2025 Orders Only [facility] Neurology [address] [place] [address] [address] [place] [address] Marlin Kirkland NP Paresthesia of skin 01/26/2025 4:00 PM WELL DRILL OPERATOR HELPER CABLE TOOL Office Visit [facility] Neurology [address] [place] [address] [address] [place] [phone] Marlin Kirkland NP Parkinson disease (HCC) (Primary Dx); Paresthesia of skin; Memory disturbance 12/22/2024 Telephone [facility] Gastroenterology [address] [place] [address] Medical Office Building [address] [place] [phone] Ayanna Venegas, DEVIN GI path results 12/19/2024 8:43 AM WELL DRILL OPERATOR HELPER CABLE TOOL Anesthesia Event [facility] Endoscopy [address] [place] [address] Grupo Orozco MD Boyle, Christine Michelle, TOBACCO SWEEPER 12/19/2024 8:30 AM WELL DRILL OPERATOR HELPER CABLE TOOL - 12/19/2024 9:00 AM WELL DRILL OPERATOR HELPER CABLE TOOL Surgery [facility] Endoscopy [address] [address] Catrachito Link MD COLON BIOPSY 12/19/2024 7:11 AM WELL DRILL OPERATOR HELPER CABLE TOOL - 12/19/2024 10:15 AM WELL DRILL OPERATOR HELPER CABLE TOOL Hospital Encounter [facility] Endoscopy [address] [address] [place] [address] Catrachito Link MD Epigastric pain; Abdominal pain [...] on file Legal Sex Female 9:09 PM WELL DRILL OPERATOR HELPER CABLE TOOL Gender Identity Not on file Sexual Orientation Not on file Obstetrics History Last Filed Vital Signs Vital Sign Reading Time Taken Comments Blood Pressure 119/79 01/26/2025 3:50 PM WELL DRILL OPERATOR HELPER CABLE TOOL Pulse 93 01/26/2025 3:50 PM WELL DRILL OPERATOR HELPER CABLE TOOL Temperature 36.3 C (97.3 F) 12/19/2024 9:15 AM WELL DRILL OPERATOR HELPER CABLE TOOL Respiratory Rate 20 01/26/2025 3:50 PM WELL DRILL OPERATOR HELPER CABLE TOOL Oxygen Saturation 97% 01/26/2025 3:50 PM WELL DRILL OPERATOR HELPER CABLE TOOL Inhaled Oxygen Concentration - - Weight 90.7 kg (200 lb) 01/26/2025 3:50 PM WELL DRILL OPERATOR HELPER CABLE TOOL Height 167.6 cm (5' 6 ) 01/26/2025 3:50 PM WELL DRILL OPERATOR HELPER CABLE TOOL Body Mass Index 32.28 01/26/2025 3:50 PM WELL DRILL OPERATOR HELPER CABLE TOOL Plan of Treatment Scheduled Procedures Name Priority [...] Associated Diagnosis Comments COLONOSCOPY 12/19/2024 8:53 AM WELL DRILL OPERATOR HELPER CABLE TOOL SURGICAL PATHOLOGY Routine 12/19/2024 8:51 AM WELL DRILL OPERATOR HELPER CABLE TOOL Epigastric pain Abdominal pain ESOPHAGOGASTRODUODENOSCOPY BIOPSY 12/19/2024 8:43 AM WELL DRILL OPERATOR HELPER CABLE TOOL Epigastric pain Abdominal pain COLON BIOPSY 12/19/2024 8:43 AM WELL DRILL OPERATOR HELPER CABLE TOOL Epigastric pain Abdominal pain EGD 12/19/2024 8:41 AM WELL DRILL OPERATOR HELPER CABLE TOOL from Last 3 Months Results * Colonoscopy (12/19/2024 8:53 AM WELL DRILL OPERATOR HELPER CABLE TOOL) Anatomical Region Laterality Modality Other Narrative Procedure Note Catrachito Link MD - 12/19/2024 8:53 AM CST ENDOSCOPY LAB Patient Name: Bijal Douglas Procedure Date: 12/19/2024 8:53 AM Date of : 1965 Admit Type: Outpatient Age: 59 Gender: Female Attending MD: Catrachito Link M.D. Room: [facility] ENDOSCOPY ROOM 04 Note Status: Finalized [...] The scope was passed under direct vision.The [id number] was introduced through the anusand advanced to [...] Final * Surgical pathology (12/19/2024 8:51 AM WELL DRILL OPERATOR HELPER CABLE TOOL) Tissue specimen (specimen) (Gastric/Stomach biopsy) 12/19/2024 8:51 AM WELL DRILL OPERATOR HELPER CABLE TOOL Tissue specimen (specimen) (Polyp(s), colon/colorectal, esophageal, gastric) 12/19/2024 9:04 AM WELL DRILL OPERATOR HELPER CABLE TOOL Narrative PATHOLOGY [facility] - 12/21/2024 1:46 PM WELL DRILL OPERATOR HELPER CABLE TOOL EPIC results best viewed via link to PDF [facility] [place] [address] Note to Patients: This report may contain [...] Gender: F : 1965 (Age: 59) Address: [address] [place] [address] Hospital #: [id number] Taken:12/19/2024 Received:12/19/2024 Reported: 12/21/2024 Patient Type: [facility] EP SAME Client [facility] Service: Gastro Location: Physician(s): Homer Hicks FNP Diagnosis: A. Stomach, random biopsy: - Antral mucosa with reactive epithelial changes. - No Helicobacter pylori is seen. B. Colon, polyps, polypectomy: - Polypoid colonic mucosa with lymphoid aggregate and reactive epithelial changes. [facility]/12/20/2024 13:00 By this signature, I attest [...] Department of Surgical Pathology, [address] [facility] [place], [place] [id number], [place] [address] CLIA # [id number] The performance characteristics of some immunohistochemical stains, fluorescence in-situ hybridization tests and immunophenotyping by flow cytometry cited in this report (if any) were determined by the Surgical Pathology and Flow Cytometry Departments at [facility] as part of an ongoing quality auditor program and in compliance with federally mandated [...] ORDERABLES F inal Result PATHOLOGY [facility] [phone] * EGD (12/19/2024 8:41 AM WELL DRILL OPERATOR HELPER CABLE TOOL) Anatomical Region Laterality Modality Other Narrative Procedure Note Catrachito Link MD - 12/19/2024 8:41 AM CST ENDOSCOPY LAB Patient Name: Bijal Douglas Procedure Date: 12/19/2024 8:41 AM Date of : 1965 Admit Type: Outpatient Age: 59 Gender: Female Attending MD: Catrachito Link M.D. Room: [facility] ENDOSCOPY ROOM 04 Note Status: Finalized [...] and oxygen saturations were monitored continuously. The [id number] was introduced through the mouth,and advanced to [...] Final Result from Last 3 Months Insurance [employer] [facility] [employer]xly OR Advance Directives For more information, please contact: [phone] * Full Code (Latest Code Status on File) Date Activated Date Inactivated Comments 12/19/2024 7:45 AM 12/19/2024 6:30 PM * Full Code Date Activated Date Inactivated Comments 11/18/2022 11:43 AM 11/18/2022 5:30 PM Care Teams Lens Engraver Relationship Specialty Start Date End Date Nancy Alvares NP [address] [place] [address] PCP - General Nurse Practitioner 10/08/21
--- OUTSIDE RECORDS SUMMARY | 2025-03-08 20:54 | XMS_ITS | Encounter Summary ---
Author Organization [facility] Address [address] [place] [address] Phone Care Team Providers Care Newswriter Name Role Phone Kiran Garvey MD Primary Care Provider + [phone] Kiran Garvey MD Primary Care Provider + [phone] Lorena Taylor MD Primary Care Provider + [phone] Dante Olivarez Primary Care Provider [phone] Morro Doyle MD Primary Care Provider [phone] Nancy Alvares NP Primary Care Provider + [phone] Encounter Details Date Type Department Care Team (Latest Contact Info) Description 02/10/2007 Orders Only [facility] Scanning, Provider Social History Tobacco Use Types Packs/Day Years Used Date Smoking Tobacco: Never Assessed Comments Unknown Sex and Gender Information Value Date Recorded Sex Assigned at Not on file Legal Sex Female 9:09 PM BANANA ROOM CUTTER Gender Identity Not on file Sexual Orientation [...] on filedocumented in this encounter Care Teams Newswriter Relationship Specialty Start Date End Date Malench, Kiran E., MD [address] [place] [address] PCP - General 02/26/17 01/25/19 Kiran Garvey MD [address] [place] [place] [address] PCP - General 03/21/15 02/25/17 Lorena Taylor MD [address] [place] [address] PCP - General Family Practice 01/26/19 03/31/21 Dante Olivarez PA [address] [place] [address] PCP - General Physician Chemical Technician 04/01/21 06/09/21 Morro Doyle MD [address] [facility] [address] [place] [address] PCP - General Internal Medicine 06/10/21 10/07/21 Nancy Alvares NP [address] [place] [id number] PCP - General Nurse Practitioner 10/08/21 documented as of this encounter
--- OUTSIDE RECORDS SUMMARY | 2025-03-08 20:54 | XMS_ITS | Encounter Summary ---
Author Organization [facility] Address [address] [place] [address] Care Team Providers Care Exceptional Children Teacher Assistant Name Role Phone Nancy Alvares Primary Care Provider [phone] Encounter Details Date Type Department Care Team (Latest Contact Info) Description 03/08/2025 Travel Social History Tobacco Use Types Packs/Day Years [...] CDT Gender Identity Female 12/23/2021 9:01 AM ACADEMIC INTERN Sexual Orientation Straight 12/23/2021 9: 01 AM ACADEMIC INTERN documented as of this encounter Plan of Treatment Upcoming Encounters Date Type Department Care Team (Late st Contact Info) Description 03/13/2025 11:20 AM CDT Office Visit [facility] Family & Internal Medicine [address] [address] Nancy Alvares FNP [facility] [place] [address] 09/20/2025 11:00 AM CDT Office Visit [facility] Family & Internal Medicine [address] [address] Nancy Alvares FNP [address] [place] [address] documented as of this encounter Visit Diagnoses Not on filedocumented in this encounter Additional Health Concerns Infection Onset Date Last Indicated Resolved Time COVID-19 Rule Out 03/08/2025 03/08/2025 Respiratory Rule-Out 03/08/2025 03/08/2025 Assessment Noted Time PHQ-9 Depression Total Score: 21 023 4:28 PM ACADEMIC INTERN documented as of this encounter Care Teams Exceptional Children Teacher Assistant Relationship Specialty Start Date End Date Nancy Alvares FNP [address] [place] [address] PCP - General Nurse Practitioner Family 09/12/21 documented as of this encounter
--- OUTSIDE RECORDS SUMMARY | 2025-03-08 20:54 | XMS_ITS | Encounter Summary ---
Author Organization [facility] Address [address] [place] [address] Phone Care Team Providers Care Weigher Operator Name Role Phone Kiran Garvey MD Primary Care Provider + [phone] Kiran Garvey MD Primary Care Provider + [phone] Lorena Taylor MD Primary Care Provider + [phone] Dante Olivarez Primary Care Provider [phone] Morro Doyle MD Primary Care Provider [phone] Nancy Alvares NP Primary Care Provider + [phone] Encounter Details Date Type Department Care Team (Latest Contact Info) Description 04/13/2005 Orders Only [facility] Scanning, Provider Social History Tobacco Use Types Packs/Day Years Used Date Smoking Tobacco: Never Assessed Comments Unknown Sex and Gender Information Value Date Recorded Sex Assigned at Not on file 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 Gender Identity Not on file Sexual Orientation [...] on filedocumented in this encounter Care Teams Weigher Operator Relationship Specialty Start Date End Date Malench, Kiran E., MD [address] [place] [address] PCP - General 02/26/17 01/25/19 Kiran Garvey MD [address] [place] [place] [address] PCP - General 03/21/15 02/25/17 Lorena Taylor MD [address] [place] [address] PCP - General Family Practice 01/26/19 03/31/21 Dante Olivarez PA [address] [place] [address] PCP - General Physician Senior Interactive Producer 04/01/21 06/09/21 Morro Doyle MD [address] [facility] [address] [place] [address] PCP - General Internal Medicine 06/10/21 10/07/21 Nancy Alvares NP [address] [place] [id number] PCP - General Nurse Practitioner 10/08/21 documented as of this encounter
--- OUTSIDE RECORDS SUMMARY | 2025-03-08 20:54 | XMS_ITS | Encounter Summary ---
Author Organization [facility] Address [address] [place] [address] Phone Care Team Providers Care Manager Cardiac Name Role Phone Kiran Garvey MD Primary Care Provider + [phone] Kiran Garvey MD Primary Care Provider + [phone] Lorena Taylor MD Primary Care Provider + [phone] Dante Olivarez Primary Care Provider [phone] Morro Doyle MD Primary Care Provider [phone] Nancy Alvares NP Primary Care Provider + [phone] Encounter Details Date Type Department Care Team (Latest Contact Info) Description 02/11/2004 Orders Only [facility] Scanning, Provider Social History Tobacco Use Types Packs/Day Years Used Date Smoking Tobacco: Never Assessed Comments Unknown Sex and Gender Information Value Date Recorded Sex Assigned at Not on file 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 Gender Identity Not on file Sexual Orientation [...] filedocumented in this encounter Care Teams Manager Cardiac Relationship Specialty Start Date End Date Malench, Kiran E., MD [address] [place] [address] PCP - General 02/26/17 01/25/19 Kiran Garvey MD [address] [place] [address] PCP - General 03/21/15 02/25/17 Lorena Taylor MD [address] [place] [address] PCP - General Family Practice 01/26/19 03/31/21 Dante Olivarez PA [address] [place] [address] PCP - General Physician Video Game Producer 04/01/21 06/09/21 Morro Doyle MD [address] [facility] [address] [place] [address] PCP - General Internal Medicine 06/10/21 10/07/21 Nancy Alvares NP [address] [place] [id number] PCP - General Nurse Practitioner 10/08/21 documented as of this encounter
--- OUTSIDE RECORDS SUMMARY | 2025-03-08 20:54 | XMS_ITS | Encounter Summary ---
Author Organization [facility] Address [address] [place] [address] Phone Care Team Providers Care Instrument And Control Service Person Name Role Phone Kiran Garvey MD Primary Care Provider + [phone] Kiran Garvey MD Primary Care Provider + [phone] Lorena Taylor MD Primary Care Provider + [phone] Dante Olivarez Primary Care Provider [phone] Morro Doyle MD Primary Care Provider [phone] Nancy Alvares NP Primary Care Provider + [phone] Encounter Details Date Type Department Care Team (Latest Contact Info) Description 02/27/2011 Orders Only [facility] Scanning, Provider Social History Tobacco Use Types Packs/Day Years Used Date Smoking Tobacco: Never Assessed Comments Unknown Sex and Gender Information Value Date Recorded Sex Assigned at Not on file 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 Gender Identity Not on file Sexual Orientation [...] on filedocumented in this encounter Care Teams Instrument And Control Service Person Relationship Specialty Start Date End Date Malench, Kiran E., MD [address] [place] [address] PCP - General 02/26/17 01/25/19 Kiran Garvey MD [address] [place] [place] [address] PCP - General 03/21/15 02/25/17 Lorena Taylor MD [address] [place] [address] PCP - General Family Practice 01/26/19 03/31/21 Dante Olivarez PA [address] [place] [address] PCP - General Physician Band Sawyer 04/01/21 06/09/21 Morro Doyle MD [address] [facility] [address] [place] [address] PCP - General Internal Medicine 06/10/21 10/07/21 Nancy Alvares NP [address] [place] [address] [id number] PCP - General Nurse Practitioner 10/08/21 documented as of this encounter
--- OUTSIDE RECORDS SUMMARY | 2025-03-08 20:54 | XMS_ITS | Encounter Summary ---
Author Organization [facility] Address [address] [place] [address] Care Team Providers Care Supervisor Acoustical Tile Carpenters Name Role Phone Nancy Alvares Primary Care Provider [phone] Encounter Details Date Type Department Care Team (Late st Contact Info) Description 07/13/2022 MyChart Message Enc [facility] Family & Internal Medicine [facility] [address] [place] [address] Nanyc Alvares FNP [address] [place], [place] [id number] Lorazepam Social History Tobacco Use Types Packs/Day [...] CDT Gender Identity Female 12/23/2021 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 I went to cloth picker my refill on July 10 and [...] Visit [facility] Family & Internal [address] [address] Nancy Alvares FNP [address] [place] [address] 09/20/2025 11:00 AM CDT Office Visit [facility] Internal [address] [address] Nancy Alvares FNP [facility] [place] [address] documented as of this encounter Visit Diagnoses Not on filedocumented in this encounter Additional Health Concerns Infection Onset Date Last Indicated Resolved Time COVID-19 Rule Out 03/08/2025 03/08/2025 Respiratory Rule-Out 03/08/2025 03/08/2025 Assessment Noted Time PHQ-9 Depression Total Score: 12 021 12:38 PM CDT documented as of this encounter Care Teams Supervisor Acoustical Tile Carpenters Relationship Specialty Start Date End Date Nancy Alvares FNP [address] [place] [address] PCP - General Nurse Practitioner Family 09/12/21 documented as of this encounter
--- OUTSIDE RECORDS SUMMARY | 2025-03-08 20:54 | XMS_ITS | Encounter Summary ---
Author Organization [facility] Address [address] [place] [address] Phone Care Team Providers Care Model Technician Name Role Phone Kiran Garvey MD Primary Care Provider + [phone] Kiran Garvey MD Primary Care Provider + [phone] Lorena Taylor MD Primary Care Provider + [phone] Danet Olivarez Primary Care Provider [phone] Morro Doyle MD Primary Care Provider [phone] Nancy Alvares NP Primary Care Provider + [phone] Encounter Details Date Type Department Care Team (Latest Contact Info) Description 11/23/2006 Orders Only [facility] Scanning, Provider Social History Tobacco Use Types Packs/Day Years Used Date Smoking Tobacco: Never Assessed Comments Unknown Sex and Gender Information Value Date Recorded Sex Assigned at Not on file 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 Gender Identity Not on file Sexual [...] on filedocumented in this encounter Care Teams Model Technician Relationship Specialty Start Date End Date Malench, Kiran E., MD [address] [place] [address] PCP - General 02/26/17 01/25/19 Kiran Garvey MD [address] [place] [address] PCP - General 03/21/15 02/25/17 Lorena Taylor MD [address] [place] [address] PCP - General Family Practice 01/26/19 03/31/21 Dante Olivarez PA [address] [place] [address] PCP - General Physician Image Assembler 04/01/21 06/09/21 Morro Doyle MD [address] [facility] [address] [place] [address] PCP - General Internal Medicine 06/10/21 10/07/21 Nancy Alvares NP [address] [place] [id number] PCP - General Nurse Practitioner 10/08/21 documented as of this encounter
--- OUTSIDE RECORDS SUMMARY | 2025-03-08 20:54 | XMS_ITS | Clinical Summary ---
Author Organization [facility] Address [facility] [place] [address] Care Team Providers Care Staff Midwife/Apprenticeship Director Name Role Phone Nicole Holt KIANNA Primary Care Provider [phone] Allergies No known active allergies Medications Aspirin-Acetaminop hen-Caffeine (EXCEDRIN EXTRA STRENGTH OR) Take 1 tablet by mouth every morning. Active fluticasone propionate (FLONASE) 50 MCG/ACT nasal sprayIndications:D ysfunction of right eustachian tube shake liquid and use 2 sprays in each nostril daily 48 g 3 Active folic acid (FOLVITE) 1 MG tabletIndications: Folic acid deficiency TAKE 1 TABLET(1 MG) BY MOUTH DAILY 90 tablet 3 4 Active eletriptan (RELPAX) 40 MG tabletIndications: Chronic migraine without aura without status migrainosus, not intractable Take 1 tablet (40 mg total) by mouth daily as needed. may repeat in 2 hours if necessary 12 tablet 3 4 Active ondansetron (ZOFRAN-ODT) 4 MG disintegrating tabletIndications: Nausea Take 1 tablet (4 mg total) by mouth every 8 (eight) hours as needed for Nausea. 20 tablet 3 4 Active vitamin D3 (CHOLECALCIFEROL) 1.25 mg capsuleIndications :Vitamin D deficiency Take 1 capsule (50,000 Units total) by mouth once a week. 12 capsule 3 4 Active HYDROcodone-chlorp heniramine ER (TUSSIONEX) 10-8 MG/5ML suspensionIndicati ons:Cough Take 2.5-5 mLs by mouth every 12 (twelve) hours as needed. Indications: Cough 115 mL 5 Active vitamin D2, ergocalciferol, (DRISDOL) 1.25 mg capsuleIndications :Vitamin D deficiency TAKE 1 CAPSULE BY MOUTH EVERY 7 DAYS 12 capsule 5 Active indapamide (LOZOL) 2.5 MG tabletIndications: Essential hypertension TAKE 1 TABLET(2.5 MG) BY MOUTH TWICE DAILY 60 tablet 3 5 Active losartan (COZAAR) 50 MG tabletIndications: Essential hypertension TAKE 1 TABLET(50 MG) BY MOUTH DAILY 90 tablet 1 5 Active LORazepam (ATIVAN) 0.5 MG tabletIndications: Anxiety TAKE 1 TABLET BY MOUTH EVERY 8 HOURS NEEDED FOR ANXIETY 90 tablet 1 5 Active valACYclovir (VALTREX) 1 g tabletIndications: Cold sore TAKE 1 TABLET(1000 MG) BY MOUTH TWICE DAILY 8 tablet 1 5 Active sulfamethoxazole-t rimethoprim (BACTRIM DS) 800-160 MG tabletIndications: Dysuria,Frequent urination Take 1 tablet by mouth 2 (two) times daily for 7 days. 14 tablet 5 025 Active nitrofurantoin, macrocrystal-monoh ydrate, (MACROBID) 100 MG capsuleIndications :Dysuria,Frequent urination Take 1 capsule (100 mg total) by mouth 2 (two) times daily for 7 days. 14 capsule 5 025 Active Problems Problem Noted Date Diagnosed Date Flank pain 11/20/2022 Left upper quadrant abdominal pain 11/20/2022 Nausea 11/20/2022 Personal history of colonic polyps 11/16/2022 Overview (11/19/2022): Added automatically from request for surgery [id number] Family history of malignant neoplasm of gastrointestinal tract 11/16/2022 Overview (11/19/2022): Added automatically from request for surgery [id number] Folic acid deficiency 09/14/2022 History of Graves' [...] in adult 09/18/2021 Fibromyalgia 09/12/2021 Parkinson disease ([facility]) 06/10/2021 Overview (09/12/2021): Last Assessment & Plan: [...] 05/01/2015 Overview (09/12/2021): Mitral regurgitation Pulmonary hypertension ([facility]) 015 Overview (09/12/2021): Pulmonary hypertension Snoring 05/01/2015 Overview (09/12/2021): Snoring Anemia 02/16/2013 Resolved Problems Problem Noted Date Diagnosed Date Resolved Date Finger mass, left 09/04/2022 07/01/2023 Finger injury, right, sequela 09/18/2021 07/01/2023 Swelling of finger joint of right hand 09/18/2021 07/01/2023 SOB (shortness of breath) 04/08/2018 Encounters Date Type Department Care Team Description 03/08/2025 7:41 PM CDT - Present Emergency [facility] [place] [address] Иван Malave MD Vomiting; Flu Like Symptoms; Ankle Pain; Syncope 03/08/2025 Travel 03/02/2025 Telephone [facility] Family & Internal [address] [address] Nicole Holt FNP Lab Results (Urine culture results faxed from alejandro ) 02/28/2025 9:40 AM CDT Allied Health/Nurse Visit [facility] Internal [address] [phone] Nicole Holt FNP Allied Health Visit (UA/ cx) 02/28/2025 Travel 02/26/2025 - 02/26/2025 11:59 PM CDT Hospital Encounter [facility] [address] [place] [address] Discharge Disposition: Home or Self Care (Routine Discharge) 02/26/2025 MyChart Message Enc [facility] Family & Internal [address] [address] Nicole Holt FNP Bladder Infection 02/26/2025 Telephone [facility] Internal [address] [address] Nicole Holt FNP Lab Results (Alejandro lab results 02/21/25) 02/21/2025 Scan [facility] Scanned, [facility] Lab (SCAN) 02/21/2025 Telephone [facility] Internal [address] [address] Nicole Holt FNP Information; Advice 02/19/[address] [address] Nicole Holt FNP Appointment Request 02/14/2025 MyChart Message [address] [phone] Nicole Holt FNP Chronic cough 01/23/[address] [phone] Nicole Holt SLIP SHEETER Radiology Results 01/22/[address] [address] Nicole Holt FNP Radiology Results 01/18/2025 Scan [facility] Scanned, [facility] Image (SCAN) 01/17/2025 Scan [facility] Scanned, [facility] Bone Density Report (SCAN) 01/16/2025 Scan [facility] Scanned, [facility] 12/29/[address] [phone] Nicole Holt FNP Radiology Results 12/29/2024 Travel 12/26/2024 MyChart Message [address] [phone] Nicole Holt SLIP SHEETER Still sick 12/21/2024 MyChart Message [facility] Internal [address] [address] Nicole Holt, SLIP SHEETER Sick 12/19/2024 Scan [facility] Scanned, [facility] Endoscopy (SCAN); Colonoscopy Report (SCAN); Pathology (SCAN) from Last 3 Months Immunizations Name [...] CDT Gender Identity Female 12/23/2021 9:01 AM LIVESTOCK HANDLER Sexual Orientation Straight 12/23/2021 9: 01 AM LIVESTOCK HANDLER Last Filed Vital Signs Vital Sign Reading [...] Mass Index 31.8 03/08/2025 7:20 PM CDT Plan of Treatment Upcoming Encounters Date Type Department Care Team (Late st Contact Info) Description 03/13/2025 11:20 AM CDT Office Visit [facility] Family & Internal Medicine [address] [address] Nicole Holt, SLIP SHEETER[address] [address] 09/20/2025 11:00 AM CDT Office Visit [facility] Family & Internal [address] [address] Nicole Holt [address] [address] Health Maintenance Due Date Last Done Comments Annual Physical 1968 Zoster Vaccines (1 of 2) 2014 RSV Immunization or 60+ Years (1 - Risk 60-74 years 1-dose series) 2024 PHQ-2 (Physician [place]) 11/29/2024 03/17/2024 COVID-19 Vaccine ( season) 2025 [...] patient's age to complete this topic Procedures * The patient is currently admitted. The information in this section might not be complete until the patient is discharged. Procedure Name Priority Date/Time Associated Diagnosis Comments ECG 12-LEAD Routine 03/08/2025 8:04 PM CDT Procedure Note - 03/08/2025 8:04 PM CDTThis note is in progress. [address] Test Date: 2025-03-08 Pat Name: BIJAL DOUGLAS Department: 41 Room: [facility] Gender: Female Lute Packer Or Applier: : [id number] Requested By: JOY GUPTA Order Number: [id number] Reading MD: Measurements Intervals [place] Rate: 102 P: 52 RI: 154 QRS: 14 QRSD: 102 T: 71 QT: 291 QTc: 379 Interpretive Statements SINUS TACHYCARDIA NONSPECIFIC T-WAVE ABNORMALITY ABNORMAL RHYTHM ECG Compared to ECG 02/13/2022 16:04:01 T-wave abnormality now present Sinus rhythm no longer present Ventricular premature complex(es) no longer present URINE BACTERIA CULTURE Routine 02/28/2025 11:10 AM CDT Dysuria Frequent urination URINALYSIS, AUTO, COMPLETE Routine 02/28/2025 11:10 AM CDT Dysuria Frequent urination OUTSIDE LAB (SCAN ORDER) 02/21/2025 URINALYSIS WI REFLEX TO CULTURE Routine 02/21/2025 12:00 AM CDT Spasms of the hands or feet VITAMIN B12 / FOLATE Routine 02/21/2025 12:00 AM CDT Spasms of the hands or feet MAGNESIUM Routine 02/21/2025 12:00 AM CDT Spasms of the hands or feet COMPREHENSIVE METABOLIC PANEL Routine 02/21/2025 12:00 AM CDT Spasms of the hands or feet CBC W/DIFF AUTOMATED Routine 02/21/2025 12:00 AM CDT Spasms of the hands or feet IMAGE GENERIC 01/18/2025 BONE DENSITY GENERIC (SCAN ORDER) 01/17/2025 XR CHEST PA+LAT Routine 12/29/2024 11:09 AM LIVESTOCK HANDLER Chest tightness PATHOLOGY GENERIC (SCAN ORDER) 12/19/2024 [...] Recently Relevant to Health Maintenance Results * (ABNORMAL) URINALYSIS (02/28/2025 11:10 AM CDT) COLOR (U) ORANGE 02/28/2025 5:41 PM CDT [facility] Comment: INTERPRET DIPSTICK RESULTS WITH CAUTION. RESULTS MAY BE INACCURATE DUE TO COLOR OF URINE. TRANSPARENCY CLEAR CLEAR 02/28/2025 5:41 PM CDT [facility] SPECIFIC GRAVITY (U) 1.010 1.003 - 1.040 02/28/2025 5:41 PM CDT [facility] U PH 6.5 5.0 - 9.0 02/28/2025 5:41 PM CDT [facility] PROTEIN RANDOM (U) 1+(A) NEGATIVE 02/28/2025 5:41 PM CDT [facility] Comment: INTERPRET DIPSTICK RESULTS WITH CAUTION. RESULTS MAY BE INACCURATE DUE TO COLOR OF URINE. GLUCOSE (U) 1+(A) NEGATIVE 02/28/2025 5:41 PM CDT [facility] Comment: INTERPRET DIPSTICK RESULTS WITH CAUTION. RESULTS MAY BE INACCURATE DUE TO COLOR OF URINE. KETONES MG/DL (U) 2+(A) NEGATIVE 02/28/2025 5:41 PM CDT [facility] Comment: INTERPRET DIPSTICK RESULTS WITH CAUTION. RESULTS MAY BE INACCURATE DUE TO COLOR OF URINE. BILIRUBIN (U) 2+(A) NEGATIVE 02/28/2025 5:41 PM CDT [facility] Comment: INTERPRET DIPSTICK RESULTS WITH CAUTION. RESULTS MAY BE INACCURATE DUE TO COLOR OF URINE. BLOOD (U) NEGATIVE NEGATIVE 02/28/2025 5:41 PM CDT [facility] Comment: INTERPRET DIPSTICK RESULTS WITH CAUTION. RESULTS MAY BE INACCURATE DUE TO COLOR OF URINE. UROBILINOGEN 4.0(H) 0.0 - 2.0 EU/DL 02/28/2025 5:41 PM CDT [facility] Comment: INTERPRET DIPSTICK RESULTS WITH CAUTION. RESULTS MAY BE INACCURATE DUE TO COLOR OF URINE. NITRITES POSITIVE(A) NEGATIVE 02/28/2025 5:41 PM CDT [facility] Comment: INTERPRET DIPSTICK RESULTS WITH CAUTION. RESULTS MAY BE INACCURATE DUE TO COLOR OF URINE. LEUKOCYTES (U) NEGATIVE NEGATIVE 02/28/2025 5:41 PM CDT [facility] Comment: INTERPRET DIPSTICK RESULTS WITH CAUTION. RESULTS MAY BE INACCURATE DUE TO COLOR OF URINE. RBC/HPF 0-3 0 - 3 /HPF 02/28/2025 5:41 PM T [facility] WBC/HPF 4-9(A) 0 - 3 /HPF 02/28/2025 5:41 PM CDT [facility] EPI/HPF 0-3 /HPF 02/28/2025 5:41 PM CDT [facility] BACTERIA (U) 1+(A) NONE SEEN 02/28/2025 5:41 PM T [facility] URINE SPECIMEN OBTAINED BY CLEAN CATCH PROCEDURE / Unknown 02/28/2025 11:10 AM CDT Nicole Holt [facility] URINE ORDERABLES Final Result [facility] [address] [facility] [place] [address], * URINE BACTERIA CULTURE (02/28/2025 11:10 AM CDT) SPEC DESCRIPTION URINE CLEAN CATCH 02/28/2025 11:10 AM CDT [facility] SPECIAL REQUESTS NO SPECIAL REQUEST 02/28/2025 11:10 AM CDT [facility] CULTURE RESULT EQUAL OR >100,000 CFU/mL ENTEROBACTE R CLOACAE COMPLEX 03/03/2025 8:59 AM CDT [facility] URINE SPECIMEN OBTAINED BY CLEAN CATCH PROCEDURE / Unknown 02/28/2025 11:10 AM CDT 02/28/2025 5:15 PM CDT Narrative Organism Antibiotic Method Susceptibility Enterobacter cloacae complex AMOXICILLIN/CLAVULANIC A ROMMEL (VITEK) Resistant Enterobacter cloacae complex AZTREONAM ROMMEL (VITEK) Sensitive Enterobacter cloacae complex CEFEPIME ROMMEL (VITEK) Sensitive Enterobacter cloacae complex CEFTRIAXONE ROMMEL (VITEK) Sensitive Enterobacter cloacae complex CIPROFLOXACIN ROMMEL (VITEK) Sensitive Enterobacter cloacae complex ERTAPENEM ROMMEL (VITEK) Sensitive Enterobacter cloacae complex NITROFURANTOIN ROMMEL (VITEK) INTERMEDIATE: Intermediate Enterobacter cloacae complex GENTAMICIN ROMMEL (VITEK) Sensitive Enterobacter cloacae complex IMIPENEM ROMMEL (VITEK) Sensitive Enterobacter cloacae complex LEVOFLOXACIN ROMMEL (VITEK) Sensitive Enterobacter cloacae complex MEROPENEM ROMMEL (VITEK) Sensitive Enterobacter cloacae complex PIPRACIL/TAZO ROMMEL (VITEK) Sensitive Enterobacter cloacae complex TRIMETH-SULFAMETH. ROMMEL (VITEK) Sensitive Enterobacter cloacae complex TETRACYCLINE ROMMEL (VITEK) Sensitive Enterobacter cloacae complex CEFAZOLIN ROMMEL (KB) Resistant us Nicole HWANGP MICROBIOLOGY - GENERAL ORDERAB LES Final Result Performing Organization Address City/[facility]/ZIP Co de Phone Number [facility] [address] [place] [address], [place] [phone] * VITAMIN B12 / FOLATE (02/21/2025 12:00 AM CDT) 02/21/2025 us Nicole Kilzer SLIP SHEETER LABORATORY Final Result Performing Organization Address City/[facility] de Phone Number [facility] * URINALYSIS WI REFLEX TO CULTURE (02/21/2025 12:00 AM CDT) URINE SPECIMEN OBTAINED BY CLEAN CATCH PROCEDURE / Unknown 02/21/2025 us Nicole Lockettzer SLIP SHEETER URINE ORDERABLES Final Result Performing Organization Address [facility] Phone Number [facility] * OUTSIDE LAB (SCAN ORDER) (02/21/2025) 02/21/2025 [facility] Scanned SCANNING Final Resu lt * COMPREHENSIVE METABOLIC PANEL (02/21/2025 12:00 AM CDT) 02/21/2025 us Nicole Lockettzer SLIP SHEETER LABORATORY Final Result Performing Organization Address [facility] de Phone Number [facility] * CBC W/DIFF AUTOMATED (02/21/2025 12:00 AM CDT) 02/21/2025 us Nicole Kilzer SLIP SHEETER LABORATORY Final Result Performing Organization Address City/[facility] de Phone Number [facility] * MAGNESIUM (02/21/2025 12:00 AM CDT) 02/21/2025 us Nicolepato Lockettzer SLIP SHEETER LABORATORY Final Result Performing Organization Address City/[facility]/ZIP Co de Phone Number [facility] * IMAGE GENERIC (01/18/2025) Anatomical Region Laterality Modality Other 01/18/2025 [facility] Scanned SCANNING Final Resu lt * BONE DENSITY GENERIC (SCAN ORDER) (01/17/2025) Anatomical Region Laterality Modality Other 01/17/2025 [facility] Scanned SCANNING Final Resu lt * XR CHEST PA+LAT (12/29/2024 11:09 AM LIVESTOCK HANDLER) Anatomical Region Laterality Modality Chest Radiographic Phuong ging 12/29/2024 11:2 5 AM LIVESTOCK HANDLER Impressions 12/29/2024 11:26 AM LIVESTOCK HANDLER IMPRESSION: No radiographic evidence of active chest disease. Ordered By: NICOLE HOLT Interpreted By: Thaddeus Palma MD, 12/29/2024 11:25 AM Narrative 12/29/2024 11:26 AM LIVESTOCK HANDLER [facility] Family [facility] [place] [address] Examination: XR CHEST PA+LAT Exam time: 12/29/2024 11:05 AM Clinical history: Cough. Congestion. Comparison: No prior exam Technique: Upright PA and lateral views Findings: Excellent and pulmonary vasculature are within normal limits. Lungs appear clear. No evidence of pleural effusion. No evidence of bronchial wall thickening or abnormal pulmonary interstitium. Procedure Note Thaddeus Palma MD - 12/29/2024 [facility] Internal [place] [address] Examination: XR CHEST PA+LAT Exam time: 12/29/2024 [...] Thaddeus Palma MD, 12/29/2024 11:25 AM Result [facility] Nicole Holt SLIP SHEETER GENERAL IMAGING Final Result * PATHOLOGY GENERIC (SCAN ORDER) (12/19/2024) Only the most recent of2 resultswithin the time period is included. 12/19/2024 [employer] [facility] Scanned SCANNING Final Resu lt * ENDOSCOPY (SCAN ORDER) (12/19/2024) 12/19/2024 [employer] [facility] Scanned SCANNING Final Resu lt * ENDOSCOPY (SCAN ORDER) (12/19/2024) 12/19/2024 [employer] [facility] Scanned SCANNING Final Resu lt * COLONOSCOPY GENERIC (SCAN ORDER) (12/19/2024) 12/19/2024 [employer] [facility] Scanned SCANNING Final Resu lt * COLONOSCOPY GENERIC (SCAN ORDER) (12/19/2024) 12/19/2024 [employer] [facility] Scanned SCANNING Final Resu lt * MAMMOGRAM GENERIC (SCAN ORDER) (10/20/2024) Anatomical Region Laterality Modality Other 10/20/2024 [employer] [facility] Scanned SCANNING Final Resu lt * HEPATITIS C AB ([facility] ONLY) (09/04/2022 9:42 AM CDT) HEPATITIS C AB NON-REACTI VE NON-REACT VALENTIN 09/04/2022 6:29 PM CDT [facility] Comment: ANTIBODIES TO HCV NOT DETECTED. DOES NOT EXCLUDE THE POSSIBILITY OF EXPOSURE TO HCV. 09/04/2022 9:42 AM CDT Nicole [facility] Final Result [facility] [address] [place] [address], [phone] from Last 3 Months or Most Recently Relevant to Health Maintenance Additional Health Concerns Infection Onset Date Last Indicated Resolved Time COVID-19 Rule Out 03/08/2025 03/08/2025 Respiratory Rule-Out 03/08/2025 03/08/2025 Insurance Care Teams Staff Midwife/Apprenticeship Director Relationship Specialty Start Date End Date Nicole Holt FNP [address] [place] [address] PCP - General Nurse Practitioner Family 09/12/21
--- OUTSIDE RECORDS SUMMARY | 2025-03-08 20:54 | XMS_ITS | Encounter Summary ---
Author Organization [facility] Address [address] [place] [address] Care Team Providers Care Chemical Preparer Name Role Phone Nancy Alvares Primary Care Provider [phone] Encounter Details Date Type Department Care Team (Late st Contact Info) Description 08/13/2023 MyChart Message Enc [facility] Medical Group Family & Internal Medicine [facility] [address] [place] [address] Nancy Alvares FNP [facility] [place], [place] [id number] Sick Social History Tobacco Use Types Packs/Day [...] CDT Gender Identity Female 12/23/2021 9:01 AM AUTOCAD OPERATOR Sexual Orientation Straight 12/23/2021 9: 01 AM AUTOCAD OPERATOR documented as of this encounter Progress [...] Description 03/13/2025 11:20 AM CDT Office Visit [facility] Family & Internal [address] [phone] Nancy Alvares FNP [address] [place] [address] 09/20/2025 11:00 AM CDT Office Visit [facility] Family Internal [address] [address] Nancy Alvares FNP [address] [place] [address] documented as of this encounter Visit Diagnoses Not on filedocumented in this encounter Additional Health Concerns Infection Onset Date Last Indicated Resolved Time COVID-19 Rule Out 03/08/2025 03/08/2025 Respiratory Rule-Out 03/08/2025 03/08/2025 Assessment Noted Time PHQ-9 Depression Total Score: 12 021 12:38 PM CDT documented as of this encounter Care Teams Chemical Preparer Relationship Specialty Start Date End Date Nancy Alvares FNP [address] [place] [address] PCP - General Nurse Practitioner Family 09/12/21 documented as of this encounter
== END 2025-03-09 03:07 | disposition left against medical advice (07) ==
PROVIDERS: PCP Nurse Practitioner Family
DX: Z53.21 Procedure and treatment not carried out due to patient leaving prior to being seen by health care provider (principal)
CPT/HCPCS: 99199

== ENCOUNTER 2025-03-13 16:46 | Outpatient (CLI) | payer BC, SELFPAY ==
--- OUTSIDE RECORDS SUMMARY | 2025-03-13 17:02 | XMS_ITS | Encounter Summary ---
Author Organization [facility] Address [address] [place] [address] Care Team Providers Care Band Builder Name Role Phone Nancy Alvares Primary Care Provider [phone] Encounter Details Date Type Department Care Team (Late st Contact Info) Description 11/26/2023 MyChart Message Enc [facility] Medical Group Family & Internal Medicine [facility] [address] [place] [phone] Nancy Alvares FNP [facility] [place], [place] [phone] Coughing Social History Tobacco Use Types Packs/Day Years Used Date Smoking Tobacco: Never Smokeless Tobacco: Never Alcohol Use Standard Drinks/Week Comments Not Currently 0 (1 standard drink = 0.6 oz pur e alcohol) PHQ-2 Answer Date Recorded Patient Health Questionnaire-2 Score 6 11/23/2023 Comments No Sex and Gender Information Value Date Recorded Sex Assigned at Female 03/13/2025 11:51 AM CDT Legal Sex Female 8:29 AM CDT Gender Identity Female 12/23/2021 9:01 AM SHREDDER/GRANULATOR OPERATOR Sexual Orientation Straight 12/23/2021 9: 01 AM SHREDDER/GRANULATOR OPERATOR documented as of this encounter Progress Notes * KIANNA Denis - 11/26/2023 2:28 PM CST I will send it out but yes test for covid DDER/GRANULATOR OPERATOR documented in this encounter Plan of Treatment Upcoming Encounters Date Type Department Care Team (Late st Contact Info) Description 09/20/2025 11:00 AM CDT Office Visit [facility] Medical Group Family & Internal Medicine - [place] [address] [place] [address] Nancy Alvares FNP [address] [place] [address] documented as of this encounter Visit Diagnoses Not on filedocumented in this encounter Additional Health Concerns Infection Onset Date Last Indicated Resolved Time COVID-19 Rule Out 03/08/2025 03/08/2025 03/08/2025 10:26 PM CDT Respiratory Rule-Out 03/08/2025 03/08/2025 025 10:25 PM CDT Assessment Noted Time PHQ-9 Depression Total Score: 21 023 4:28 PM SHREDDER/GRANULATOR OPERATOR documented as of this encounter Care Teams Band Builder Relationship Specialty Start Date End Date Nancy Alvares FNP [address] [place] [address] PCP - General Nurse Practitioner Family 09/12/21 documented as of this encounter
--- OUTSIDE RECORDS SUMMARY | 2025-03-13 17:02 | XMS_ITS | Encounter Summary ---
Author Organization [facility] Address [address] [place] [address] Phone Care Team Providers Care Erp Consultant Name Role Phone Kiran Garvey MD Primary Care Provider [phone] Kiran Garvey MD Primary Care Provider + [phone] Lorena Taylor MD Primary Care Provider + [phone] Dante Olivarez Primary Care Provider [phone] Morro Doyel MD Primary Care Provider [phone] Nancy Alvares NP Primary Care Provider [phone] Encounter Details Date Type Department Care Team (Latest Contact Info) Description 09/27/2009 Orders Only [facility] Scanning, Provider Social History Tobacco Use Types Packs/Day Years Used Date Smoking Tobacco: Never Assessed Comments Unknown Sex and Gender Information Value Date Recorded Sex Assigned at Not on file Legal Sex Female 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 Gender Identity Not on file Sexual [...] on filedocumented in this encounter Care Teams Erp Consultant Relationship Specialty Start Date End Date Malench, Kiran E., MD [address] [place] [address] PCP - General 02/26/17 01/25/19 Kiran Garvey MD [address] [place] [address] PCP - General 03/21/15 02/25/17 Lorena Taylor MD [address] [place] [address] PCP - General Family Practice 01/26/19 03/31/21 Dante Olivarez PA [address] [place] [address] PCP - General Physician Barrel Plater 04/01/21 06/09/21 Morro Doyle MD [address] [facility] [address] [place] [address] PCP - General Internal Medicine 06/10/21 10/07/21 Nancy Alvares NP [address] [place] [id number] PCP - General Nurse Practitioner 10/08/21 documented as of this encounter
--- OUTSIDE RECORDS SUMMARY | 2025-03-13 17:02 | XMS_ITS | Encounter Summary ---
Author Organization [facility] Address [address] [place] [address] Care Team Providers Care Radio Machinist Name Role Phone Nancy Alvares Primary Care Provider [phone] Encounter Details Date Type Department Care Team (Late st Contact Info) Description 03/12/2025 [employer] Message Enc [facility] Family & Internal [address] [phone] Nancy Alvares FNP [address] [place] [address] Norovirus/ stomach Flu Social History Tobacco Use Types Packs/Day Years Used Date Smoking Tobacco: Never Smokeless Tobacco: Never Alcohol Use Standard Drinks/Week Comments Not Currently 0 (1 standard drink = 0.6 oz pur e alcohol) PHQ-2 Answer Date Recorded Patient Health Questionnaire-2 Score 0 03/13/2025 Comments No Sex and Gender Information Value Date Recorded Sex Assigned at Female 03/13/2025 11:51 AM CDT Legal Sex Female 8:29 AM CDT Gender Identity Female 12/23/2021 9:01 AM WATERPROOFER HELPER Sexual Orientation Straight 12/23/2021 9: 01 AM WATERPROOFER HELPER documented as of this encounter Plan of Treatment Upcoming Encounters Date Type Department Care Team (Late Contact Info) Description 09/20/2025 11:00 AM CDT Office Visit [facility] Family & Internal [address] [phone] Nancy Alvares FNP [address] [place] [address] documented as of this encounter Visit Diagnoses Not on filedocumented in this encounter Additional Health Concerns Assessment Noted Time PHQ-9 Depression Total Score: 21 023 4:28 PM WATERPROOFER HELPER documented as of this encounter Care Teams Radio Machinist Relationship Specialty Start Date End Date Nancy Alvares FNP [address] [place] [address] PCP - General Nurse Practitioner Family 09/12/21 documented as of this encounter
--- OUTSIDE RECORDS SUMMARY | 2025-03-13 17:02 | XMS_ITS | Encounter Summary ---
Author Organization [facility] Address [address] [place] [address] Phone Care Team Providers Care Clearance Center Manager Name Role Phone Kiran Garvey MD Primary Care Provider + [phone] Kiran Garvey MD Primary Care Provider + [phone] Lorena Taylor MD Primary Care Provider + [phone] Dante Olivarez Primary Care Provider [phone] Morro Doyle MD Primary Care Provider [phone] Nancy Alvares NP Primary Care Provider + [phone] Encounter Details Date Type Department Care Team (Latest Contact Info) Description 10/26/2006 Orders Only [facility] Scanning, Provider Social History Tobacco Use Types Packs/Day Years Used Date Smoking Tobacco: Never Assessed Comments Unknown Sex and Gender Information Value Date Recorded Sex Assigned at Not on file Legal Sex Female 9:09 PM 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 Gender Identity Not on file Sexual Orientation [...] on filedocumented in this encounter Care Teams Clearance Center Manager Relationship Specialty Start Date End Date Malench, Kiran E., MD [address] [place] [address] PCP - General 02/26/17 01/25/19 Kiran Garvey MD [address] [place] [address] PCP - General 03/21/15 02/25/17 Lorena Taylor MD [address] [place] [address] PCP - General Family Practice 01/26/19 03/31/21 Dante Olivarez PA [address] [place] [address] PCP - General Physician Processing Analyst 04/01/21 06/09/21 Morro Doyle MD [address] [facility] [address] [place] [address] PCP - General Internal Medicine 06/10/21 10/07/21 Nancy Alvares NP [address] [place] [address] [id number] PCP - General Nurse Practitioner 10/08/21 documented as of this encounter
--- OUTSIDE RECORDS SUMMARY | 2025-03-13 17:02 | XMS_ITS | Clinical Summary ---
Author Organization [facility] Address [address] [place] [address] Care Team Providers Care Emergency Medicine Name Role Phone Unavailable Primary Care Provider Unavailabl e Source Comments [facility],non-owned Affiliates and Associated Physician Practices is amultiple site organization consisting of ambulatory clinics and hospital sitesin [place], [place], [place] and [place]. This disclosure is being madepursuant to the Care Everywhere program and may not contain all information available regarding this patient. Last updated 18.[facility] [address] Social History Tobacco Use Types Packs/Day Years Used Date Smoking Tobacco: Never Assessed Comments Unknown Sex and Gender Information Value Date Recorded Sex Assigned at Not on file Legal Sex Female 6:37 AM HOME CARE MANAGER Gender Identity Not on file Sexual [...] on patient's age to complete this topic Insurance [id number] [place] [address]
--- OUTSIDE RECORDS SUMMARY | 2025-03-13 17:02 | XMS_ITS | Encounter Summary ---
Author Organization [facility] Address [address] [place] [address] Care Team Providers Care Mice Raiser Name Role Phone Nancy Alvares Primary Care Provider [phone] Encounter Details Date Type Department Care Team (Late Contact Info) Description 09/20/2024 [employer] Message Enc [facility] Family & Internal [address] [address] [place], [facility] Provider XR results Social History Tobacco [...] CDT Gender Identity Female 12/23/2021 9:01 AM SITE ADMINISTRATOR Sexual Orientation Straight 12/23/2021 9: 01 AM SITE ADMINISTRATOR documented as of this encounter Plan of Treatment Upcoming Encounters Date Type Department Care Team (Late Contact Info) Description 09/20/2025 11:00 AM CDT Office Visit [facility] Family & Internal [address] [address] Nancy Alvares FNP [address] [place] [phone] documented as of this encounter Visit Diagnoses Not on filedocumented in this encounter Additional Health Concerns Infection Onset Date Last Indicated Resolved Time COVID-19 Rule Out 03/08/2025 03/08/2025 03/08/2025 10:26 PM CDT Respiratory Rule-Out 03/08/2025 03/08/2025 025 10:25 PM CDT Assessment Noted Time PHQ-9 Depression Total Score: 21 023 4:28 PM SITE ADMINISTRATOR documented as of this encounter Care Teams Mice Raiser Relationship Specialty Start Date End Date Nancy Alvares FNP [address] [place] [address] PCP - General Nurse Practitioner Family 09/12/21 documented as of this encounter
--- OUTSIDE RECORDS SUMMARY | 2025-03-13 17:02 | XMS_ITS | Clinical Summary ---
Author Organization [facility] [address] Address [address] [place] [address] Care Team Providers Care Digital Media Manager Name Role Phone Nancy Alvares NP Primary [...] (11/16/2022): Added automatically from request for surgery [id number] Family history of malignant neoplasm of gastrointestinal tract 11/16/2022 Overview (11/16/2022): Added automatically from request for surgery [id number] Parkinson disease 06/10/2021 Assessment & Plan (11/18/2021 4:42 PM CADDIE): Patient continues at this time on pramipexole [...] Department Care Team Description 02/28/2025 Orders Only [facility] Neurology [address] [place] [address] [address] [place] [address] Marlin Kirkland NP Paresthesia of skin 01/26/2025 4:00 PM CADDIE Office Visit [facility] Neurology [address] [place] [address] [address] [place] [phone] Marlin Kirkland NP Parkinson disease (HCC) (Primary Dx); Paresthesia of skin; Memory disturbance 12/22/2024 Telephone [facility] Gastroenterology [address] [place] [address] Medical Office [address], [address] [place] [phone] Ayanna Venegas, DEVIN GI path results 12/19/2024 8:43 AM CADDIE Anesthesia Event [facility] Endoscopy [address] [place] [address] Grupo Orozco MD Boyle, Christine Michelle, REGIONAL ENVIRONMENTAL MANAGER 12/19/2024 8:30 AM CADDIE - 12/19/2024 9:00 AM CADDIE Surgery [facility] Endoscopy [address] [place] [address] Catrachito Link MD COLON BIOPSY 12/19/2024 7:11 AM CADDIE - 12/19/2024 10:15 AM CADDIE Hospital Encounter [facility] Endoscopy [address] [place] [address] Catrachito Link MD Epigastric pain; Abdominal pain [...] on file Legal Sex Female 9:09 PM CADDIE Gender Identity Not on file Sexual Orientation Not on file Obstetrics History Last Filed Vital Signs Vital Sign Reading Time Taken Comments Blood Pressure 119/79 01/26/2025 3:50 PM CADDIE Pulse 93 01/26/2025 3:50 PM CADDIE Temperature 36.3 C (97.3 F) 12/19/2024 9:15 AM CADDIE Respiratory Rate 20 01/26/2025 3:50 PM CADDIE Oxygen Saturation 97% 01/26/2025 3:50 PM CADDIE Inhaled Oxygen Concentration - - Weight 90.7 kg (200 lb) 01/26/2025 3:50 PM CADDIE Height 167.6 cm (5' 6 ) 01/26/2025 3:50 PM CADDIE Body Mass Index 32.28 01/26/2025 3:50 PM CADDIE Plan of Treatment Scheduled Procedures Name Priority [...] Associated Diagnosis Comments COLONOSCOPY 12/19/2024 8:53 AM CADDIE SURGICAL PATHOLOGY Routine 12/19/2024 8:51 AM CADDIE Epigastric pain Abdominal pain ESOPHAGOGASTRODUODENOSCOPY BIOPSY 12/19/2024 8:43 AM CADDIE Epigastric pain Abdominal pain COLON BIOPSY 12/19/2024 8:43 AM CADDIE Epigastric pain Abdominal pain EGD 12/19/2024 8:41 AM CADDIE from Last 3 Months Results * Colonoscopy (12/19/2024 8:53 AM CADDIE) Anatomical Region Laterality Modality Other Narrative Procedure Note Catrachito Link MD - 12/19/2024 8:53 AM CST ENDOSCOPY LAB Patient Name: Bijal Douglas Procedure Date: 12/19/2024 8:53 AM Date of : 1965 Admit Type: Outpatient Age: 59 Gender: Female Attending MD: Catrachito Link M.D. Room: [facility] ENDOSCOPY ROOM 04 Note Status: Finalized Procedure: [...] The scope was passed under direct vision.The [id number] was introduced through the anusand advanced to [...] Final * Surgical pathology (12/19/2024 8:51 AM CADDIE) Tissue specimen (specimen) (Gastric/Stomach biopsy) 12/19/2024 8:51 AM CADDIE Tissue specimen (specimen) (Polyp(s), colon/colorectal, esophageal, gastric) 12/19/2024 9:04 AM CADDIE Narrative PATHOLOGY [facility] - 12/21/2024 1:46 PM CADDIE EPIC results best viewed via link to PDF [facility] [place] [address] Note to Patients: This report may contain [...] F : 1965 (Age: 59) Address: [address] [place] [address] Hospital #: [id number] Taken:12/19/2024 Received:12/19/2024 Reported: 12/21/2024 Patient Type: [facility] EP SAME Client [facility] Service: Gastro Location: Physician(s): Homer Hicks FNP [...] interpretation for this case was performed at [facility], Department of Surgical Pathology, [address] [facility] [place], [place] [id number], [place] [address] CLIA # [id number] The performance characteristics of some immunohistochemical stains, fluorescence in-situ hybridization tests and immunophenotyping by flow cytometry cited in this report (if any) were determined by the Surgical Pathology and Flow Cytometry Departments at [facility] as part of an ongoing quality control lead program and in compliance with federally mandated [...] Surgical Pathology and Flow Cytometry Departments of [facility]. It has not been cleared or approved by the U. S. Food and Drug Administration. IMAGES AND SCANNED DOCUMENTS, IF INCLUDED, ONLY VIEWABLE IN PDF VERSION OF REPORT us Catrachito Link MD LAB PATHOLOGY ORDERABLES F inal Result PATHOLOGY [facility] [phone] * EGD (12/19/2024 8:41 AM CADDIE) Anatomical Region Laterality Modality Other Narrative Procedure Note Catrachito Link MD - 12/19/2024 8:41 AM CST ENDOSCOPY LAB Patient Name: Bijal Douglas Procedure Date: 12/19/2024 8:41 AM Date of : 1965 Admit Type: Outpatient Age: 59 Gender: Female Attending MD: Catrachito Link M.D. Room: [facility] ENDOSCOPY ROOM 04 Note Status: Finalized Procedure: [...] and oxygen saturations were monitored continuously. The [id number] was introduced through the mouth,and advanced to [...] Final Result from Last 3 Months Insurance [employer] [facility] [place] Advance Directives For more information, please contact: [phone] * Full Code (Latest Code Status on File) Date Activated Date Inactivated Comments 12/19/2024 7:45 AM 12/19/2024 6:30 PM * Full Code Date Activated Date Inactivated Comments 11/18/2022 11:43 AM 11/18/2022 5:30 PM Care Teams Digital Media Manager Relationship Specialty Start Date End Date Nancy Alvares NP [address] [place] [address] PCP - General Nurse Practitioner 10/08/21
--- OUTSIDE RECORDS SUMMARY | 2025-03-13 17:02 | XMS_ITS | Encounter Summary ---
Author Organization [facility] Address [address] [place] [address] Phone Care Team Providers Care De Icer Finisher Name Role Phone Kiran Garvey MD Primary Care Provider + [phone] Kiran Garvey MD Primary Care Provider + [phone] Lorena Taylor MD Primary Care Provider + [phone] Dante Olivarez Primary Care Provider [phone] Morro Doyle MD Primary Care Provider [phone] Nancy Alvares NP Primary Care Provider + [phone] Encounter Details Date Type Department Care Team (Latest Contact Info) Description 11/10/2006 Orders Only [facility] Scanning, Provider Social History Tobacco Use Types Packs/Day Years Used Date Smoking Tobacco: Never Assessed Comments Unknown Sex and Gender Information Value Date Recorded Sex Assigned at Not on file Legal Sex Female 9:09 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 Gender Identity Not on file Sexual [...] on filedocumented in this encounter Care Teams De Icer Finisher Relationship Specialty Start Date End Date Malench, Kiran E., MD [address] [place] [address] PCP - General 02/26/17 01/25/19 Kiran Garvey MD [address] [place] [address] PCP - General 03/21/15 02/25/17 Lorena Taylor MD [address] [place] [address] PCP - General Family Practice 01/26/19 03/31/21 Dante Olivarez PA [address] [place] [address] PCP - General Physician Document Preparation Specialist 04/01/21 06/09/21 Morro Doyle MD [address] [facility] [address] [place] [address] PCP - General Internal Medicine 06/10/21 10/07/21 Nancy Alvares NP [address] [place] [address] [id number] PCP - General Nurse Practitioner 10/08/21 documented as of this encounter
--- OUTSIDE RECORDS SUMMARY | 2025-03-13 17:02 | XMS_ITS | Encounter Summary ---
Author Organization [facility] Address [address] [place] [address] Care Team Providers Care Respiratory Services Manager Name Role Phone Nancy Alvares Primary Care Provider [phone] Encounter Details Date Type Department Care Team (Late st Contact Info) Description 03/16/2024 MyChart Message Enc [facility] Family & Internal Medicine [facility] [address] [place] [phone] Nancy Alvares FNP [facility] [place], [place] [id number] Rolled Ankle Social History Tobacco Use Types [...] CDT Gender Identity Female 12/23/2021 9:01 AM NURSE PRACTITIONER Sexual Orientation Straight 12/23/2021 9: 01 AM NURSE PRACTITIONER documented as of this encounter Functional Status * Over the past 2 weeks, how often have you been bothered by any of the following problems? Question Answer Date of Assessment Author Status Little interest or pleasure in doing things Not at all 03/17/2024 3:52 PM CDT Terrie Gagnon MA Active Feeling down, depressed, or hopeless Not at all 03/17/2024 3:52 PM CDT Terrie Gagnon MA Activ e Patient Health Questionnaire-2 Score 0 03/17/2024 3:52 PM CDT Terrie Gagnon MA Active * If you checked off any problems on this questionnaire so far, Question Answer Date of Assessment Author Status How difficult have these problems made it for you to do your work, take care of things at home, or get along with other people? Not difficult at all 03/17/2024 3:52 PM CDT Terrie Gagnon MA Active documented as of this encounter Progress Notes * Sammie Ricks RN - 03/17/2024 1:58 PM CDT Patient I going to go to walk in clinic in [place]. Opportunity given for all questions to be answered, no further needs voiced at this time. LL-03/17/24 * KIANNA Denis - 03/17/2024 1:40 PM [...] Description 09/20/2025 11:00 AM CDT Office Visit [facility] Family & Internal Medicine - [address] [place] [address] Nancy Alvares FNP [facility] [place] [address] documented as of this encounter Visit Diagnoses Not on filedocumented in this encounter Additional Health Concerns Infection Onset Date Last Indicated Resolved Time COVID-19 Rule Out 03/08/2025 03/08/2025 03/08/2025 10:26 PM CDT Respiratory Rule-Out 03/08/2025 03/08/202510/2 025 10:25 PM CDT Assessment Noted Time PHQ-9 Depression Total Score: 21 023 4:28 PM NURSE PRACTITIONER documented as of this encounter Care Teams Respiratory Services Manager Relationship Specialty Start Date End Date Nancy Alvares FNP [facility] [place] [address] PCP - General Nurse Practitioner Family 09/12/21 documented as of this encounter
--- OUTSIDE RECORDS SUMMARY | 2025-03-13 17:02 | XMS_ITS | Encounter Summary ---
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
--- OUTSIDE RECORDS SUMMARY | 2025-03-13 17:02 | XMS_ITS | Encounter Summary ---
Author Organization [facility] Address [address] [place] [address] Phone Care Team Providers Care Munitions Worker Name Role Phone Kiran Garvey MD Primary Care Provider + [phone] Kiran Garvey MD Primary Care Provider + [phone] Lorena Taylor MD Primary Care Provider + [phone] Dante Olivarez Primary Care Provider [phone] Morro Doyle MD Primary Care Provider [phone] Nancy Alvares NP Primary Care Provider + [phone] Encounter Details Date Type Department Care Team (Latest Contact Info) Description 02/11/2004 Orders Only [facility] Scanning, Provider Social History Tobacco Use Types Packs/Day Years Used Date Smoking Tobacco: Never Assessed Comments Unknown Sex and Gender Information Value Date Recorded Sex Assigned at Not on file Legal Sex Female 9:09 PM OIL CHANGER Gender Identity Not on file Sexual Orientation [...] on filedocumented in this encounter Care Teams Munitions Worker Relationship Specialty Start Date End Date Malench, Kiran E., MD [address] [place] [address] PCP - General 02/26/17 01/25/19 Kiran Garvey MD [address] [place] [address] PCP - General 03/21/15 02/25/17 Lorena Taylor MD [address] [place] [address] PCP - General Family Practice 01/26/19 03/31/21 Dante Olivarez PA [address] [place] [address] PCP - General Physician [place] Operator 04/01/21 06/09/21 Morro Doyle MD [address] [facility] [address] [place] [address] PCP - General Internal Medicine 06/10/21 10/07/21 Nancy Alvares NP [address] [place] [address] [id number] PCP - General Nurse Practitioner 10/08/21 documented as of this encounter
--- OUTSIDE RECORDS SUMMARY | 2025-03-13 17:02 | XMS_ITS | Continuity of Care Document ---
Author Organization [facility] Address [address] [place] [address] [address] [place] [address] Phone Care Team Providers Care Visual Merchandiser Name Role Phone Jin OD, Toby Unavailable Unavailable Procedures Procedure Date Office/outpatient Visit, [facility] Advance Directives Directive Yes / No Effective Date File Name No Information Encounters Encounter Description Practice Location Reason(s) For Visit Diagnoses Date Provider Providers Copied on Encounter Office/outpat ient Visit, [facility], [address], [place], [place], [id number], [place] tel:[phone] [facility] No Information 2-201 0 Jin OD Toby. [address] , [address], [place], [address], [place]. tel:[phone] Family History Family Member Type Diagnosis Age [...]
--- OUTSIDE RECORDS SUMMARY | 2025-03-13 17:02 | XMS_ITS | Encounter Summary ---
Author Organization [facility] Address [address] [place] [address] Phone Care Team Providers Care Wire Spooler Name Role Phone Kiran Garvey MD Primary Care Provider + [phone] Kiran Garvey MD Primary Care Provider + [phone] Lorena Taylor MD Primary Care Provider + [phone] Dante Olivarez Primary Care Provider [phone] Morro Doyle MD Primary Care Provider [phone] Nancy Alvares NP Primary Care Provider + [phone] Encounter Details Date Type Department Care Team (Latest Contact Info) Description 04/16/2006 Orders Only [facility] Scanning, Provider Social History Tobacco Use Types Packs/Day Years Used Date Smoking Tobacco: Never Assessed Comments Unknown Sex and Gender Information Value Date Recorded Sex Assigned at Not on file Legal Sex Female 9:09 PM 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 Gender Identity Not on file Sexual [...] filedocumented in this encounter Care Teams Wire Spooler Relationship Specialty Start Date End Date Malench, Kiran E., MD [address] [place] [address] PCP - General 02/26/17 01/25/19 Kiran Garvey MD [address] [place] [address] PCP - General 03/21/15 02/25/17 Lorena Taylor MD [address] [place] [address] PCP - General Family Practice 01/26/19 03/31/21 Dante Olivarez PA [address] [place] [address] PCP - General Physician Management Analyst 04/01/21 06/09/21 Morro Doyle MD [address] [facility] [address] [place] [address] PCP - General Internal Medicine 06/10/21 10/07/21 Nancy Alvares NP [address] [place] [id number] PCP - General Nurse Practitioner 10/08/21 documented as of this encounter
--- OUTSIDE RECORDS SUMMARY | 2025-03-13 17:02 | XMS_ITS | Encounter Summary ---
Author Organization [facility] Address [address] [place] [address] Phone Care Team Providers Care Snuff Grinder And Screener Name Role Phone Kiran Garvey MD Primary Care Provider + [phone] Kiran Garvey MD Primary Care Provider + [phone] Lorena Taylor MD Primary Care Provider + [phone] Dante Olivarez Primary Care Provider [phone] Morro Doyle MD Primary Care Provider [phone] Nancy Alvares NP Primary Care Provider + [phone] Encounter Details Date Type Department Care Team (Latest Contact Info) Description 04/13/2005 Orders Only [facility] Scanning, Provider Social History Tobacco Use Types Packs/Day Years Used Date Smoking Tobacco: Never Assessed Comments Unknown Sex and Gender Information Value Date Recorded Sex Assigned at Not on file 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 Gender Identity Not on file Sexual [...] filedocumented in this encounter Care Teams Snuff Grinder And Screener Relationship Specialty Start Date End Date Malench, Kiran E., MD [address] [place] [address] PCP - General 02/26/17 01/25/19 Kiran Garvey MD [address] [place] [address] PCP - General 03/21/15 02/25/17 Lorena Taylor MD [address] [place] [address] PCP - General Family Practice 01/26/19 03/31/21 Dante Olivarez PA [address] [place] [address] PCP - General Physician Stenotypist 04/01/21 06/09/21 Morro Doyle MD [address] [facility] [address] [place] [address] PCP - General Internal Medicine 06/10/21 10/07/21 Nancy Alvares NP [address] [place] [id number] PCP - General Nurse Practitioner 10/08/21 documented as of this encounter
--- OUTSIDE RECORDS SUMMARY | 2025-03-13 17:02 | XMS_ITS | Encounter Summary ---
Author Organization [facility] Address [address] [place] [address] Care Team Providers Care Wiring Mechanic Name Role Phone Nancy Alvares Primary Care Provider [phone] Reason for Visit * Reason Onset Date Comments Information 03/13/2025 Encounter Details Date Type Department Care Team (Late st Contact Info) Description 03/13/2025 Telephone [facility] Family & Internal Medicine [address] [place] [address] Nancy Alvares FNP [facility] [place], [place] [id number] Information Social History Tobacco Use Types Packs/Day Years [...] CDT Gender Identity Female 12/23/2021 9:01 AM SILK CONDITIONER Sexual Orientation Straight 12/23/2021 9: 01 AM SILK CONDITIONER documented as of this encounter Functional Status * Over the past 2 weeks, how often have you been bothered by any of the following problems? Question Answer Date of Assessment Author Status Little interest or pleasure in doing things Not at all 03/13/2025 11:51 AM CDT Radha Hendrciks MA Active Feeling down, depressed, or hopeless Not at all 03/13/2025 11:51 AM CDT Juan Hendricks MA Active Patient Health Questionnaire-2 Score 0 03/13/2025 11:51 AM CDT Radha Hendricks MA Active documented as of this encounter Progress Notes * Barbara Maldonado - 03/13/2025 12:36 PM CDT Pt had to head back to work, lab was at lunch until 1:20 so I printed them out and she is taking them to [place]. Pt just wanted me to make a note of that. documented in this encounter Plan of Treatment Upcoming Encounters Date Type Department Care Team (Late st Contact Info) Description 09/20/2025 11:00 AM CDT Office Visit [facility] Family & Internal Medicine - [address] [address] Nancy Alvares FNP [address] [place] [address] documented as of this encounter Visit Diagnoses Not on filedocumented in this encounter Additional Health Concerns Assessment Noted Time PHQ-9 Depression Total Score: 21 023 4:28 PM SILK CONDITIONER documented as of this encounter Care Teams Wiring Mechanic Relationship Specialty Start Date End Date Nancy Alvares FNP [address] [place] [address] PCP - General Nurse Practitioner Family 09/12/21 documented as of this encounter
--- OUTSIDE RECORDS SUMMARY | 2025-03-13 17:02 | XMS_ITS | Encounter Summary ---
Author Organization [facility] Address [address] [place] [address] Phone Care Team Providers Care Gre Instructor Name Role Phone Kiran Garvey MD Primary Care Provider + [phone] Kiran Garvey MD Primary Care Provider + [phone] Lorena Tayolr MD Primary Care Provider + [phone] Dante Olivarez Primary Care Provider [phone] Morro Doyle MD Primary Care Provider [phone] Nancy Alvares NP Primary Care Provider + [phone] Encounter Details Date Type Department Care Team (Latest Contact Info) Description 02/10/2007 Orders Only [facility] Scanning, Provider Social History Tobacco Use Types Packs/Day Years Used Date Smoking Tobacco: Never Assessed Comments Unknown Sex and Gender Information Value Date Recorded Sex Assigned at Not on file Legal Sex Female 9:09 PM FINISH CARPENTER Gender Identity Not on file Sexual Orientation [...] on filedocumented in this encounter Care Teams Gre Instructor Relationship Specialty Start Date End Date Malench, Kiran E., MD [address] [place] [address] PCP - General 02/26/17 01/25/19 Kiran Garvey MD [address] [place] [address] PCP - General 03/21/15 02/25/17 Lorena Taylor MD [address] [place] [address] PCP - General Family Practice 01/26/19 03/31/21 Dante Olivarez PA [address] [place] [address] PCP - General Physician Outside Barrel Lathe Operator 04/01/21 06/09/21 Morro Doyle MD [address] [facility] [address] [place] [address] PCP - General Internal Medicine 06/10/21 10/07/21 Nancy Alvares NP [address] [place] [id number] PCP - General Nurse Practitioner 10/08/21 documented as of this encounter
--- OUTSIDE RECORDS SUMMARY | 2025-03-13 17:02 | XMS_ITS | Encounter Summary ---
Author Organization [facility] Address [address] [place] [address] Care Team Providers Care Passport Support Manager Name Role Phone Nancy Alvares KIANNA Primary Care Provider [phone] Encounter Details Date Type Department Care Team (Latest Contact Info) Description 03/13/2025 Travel Social History Tobacco Use Types Packs/Day [...] CDT Gender Identity Female 12/23/2021 9:01 AM COGNOS BI DEVELOPER Sexual Orientation Straight 12/23/2021 9: 01 AM COGNOS BI DEVELOPER documented as of this encounter Functional Status * Over the past 2 weeks, how often have you been bothered by any of the following problems? Question Answer Date of Assessment Author Status Little interest or pleasure in doing things Not at all 03/13/2025 11:51 AM CDT Radha Hendricks MA Active Feeling down, depressed, or hopeless Not at all 03/13/2025 11:51 AM CDT Juan Hendricsk MA Active Patient Health Questionnaire-2 Score 0 03/13/2025 11:51 AM CDT Radha Hendricks MA Active documented as of this encounter Plan of Treatment Upcoming Encounters Date Type Department Care Team (Late st Contact Info) Description 09/20/2025 11:00 AM CDT Office Visit [facility] Family & Internal Medicine - [address] [place] [address] Nancy Alvares FNP [facility] [place] [address] documented as of this encounter Visit Diagnoses Not on filedocumented in this encounter Additional Health Concerns Assessment Noted Time PHQ-9 Depression Total Score: 21 023 4:28 PM COGNOS BI DEVELOPER documented as of this encounter Care Teams Passport Support Manager Relationship Specialty Start Date End Date aNncy Alvares FNP [address] [place] [address] PCP - General Nurse Practitioner Family 09/12/21 documented as of this encounter
--- OUTSIDE RECORDS SUMMARY | 2025-03-13 17:02 | XMS_ITS | Encounter Summary ---
Author Organization [facility] Address [address] [place] [address] Care Team Providers Care Scale And Skip Car Operator Name Role Phone Nancy Alvares Primary Care Provider [phone] Encounter Details Date Type Department Care Team (Late st Contact Info) Description 03/13/2025 Results Follow-Up [facility] Family & Internal Medicine [facility] [address] [place] [address] Nancy Alvares FNP [facility] [place] [address] URINALYSIS AUTO DIP Social History Tobacco Use Types Packs/Day Years [...] CDT Gender Identity Female 12/23/2021 9:01 AM ORGAN TEACHER Sexual Orientation Straight 12/23/2021 9: 01 AM ORGAN TEACHER documented as of this encounter Functional Status * Over the past 2 weeks, how often have you been bothered by any of the following problems? Question Answer Date of Assessment Author Status Little interest or pleasure in doing things Not at all 03/13/2025 11:51 AM STEWARTT Radha Hendricks MA Active Feeling down, depressed, or hopeless Not at all 03/13/2025 11:51 AM CDT Juan Hendricks MA Active Patient Health Questionnaire-2 Score 0 03/13/2025 11:51 AM CDT Radha Hendricks MA Active documented as of this encounter Progress Notes * KIANNA Denis - 03/13/2025 1:34 PM CDT Ua was negative for infection- continue to monitor your symptoms. documented in this encounter Plan of Treatment Upcoming Encounters Date Type Department Care Team (Late st Contact Info) Description 09/20/2025 11:00 AM CDT Office Visit [facility] Family & Internal Medicine - [address] [address] Nancy Alvares FNP [address] [place] [address] documented as of this encounter Visit Diagnoses Not on filedocumented in this encounter Additional Health Concerns Assessment Noted Time PHQ-9 Depression Total Score: 21 023 4:28 PM ORGAN TEACHER documented as of this encounter Care Teams Scale And Skip Car Operator Relationship Specialty Start Date End Date Nancy Alvares FNP [address] [place] [address] PCP - General Nurse Practitioner Family 09/12/21 documented as of this encounter
--- OUTSIDE RECORDS SUMMARY | 2025-03-13 17:02 | XMS_ITS | Referral Summary ---
Author Organization [facility] [address] Address [address] [place] [address] Care Team Providers Care Mud Mill Tender Name Role Phone Nancy Alvares NP Primary Care Provider Encounters Date Type Department Care Team Description 02/28/2025 Orders Only [facility] Neurology [address] [place] [address] [place] [phone] Marlin Kirkland NP Paresthesia of skin 01/26/2025 4:00 PM BENCH LATHE OPERATOR Office Visit [facility] Neurology [address] [place] [address] [address] [place] [address] Marlin Kirkland NP Parkinson disease (HCC) (Primary Dx); Paresthesia of skin; Memory disturbance 12/22/2024 Telephone [facility] Gastroenterology [address] [place] [address] Medical Office Building [address] [place] [address] Ayanna Venegas RN GI path results 12/19/2024 8:30 AM BENCH LATHE OPERATOR - 12/19/2024 9:00 AM BENCH LATHE OPERATOR Surgery Endoscopy [address] [place] [address] Catrachito Link MD COLON BIOPSY 12/19/2024 8:43 AM BENCH LATHE OPERATOR Anesthesia Event Endoscopy [address] [place] [address] Grupo Orozco MD Boyle, Christine Michelle, LOADER [employer] 12/19/2024 7:11 AM BENCH LATHE OPERATOR - 12/19/2024 10:15 AM BENCH LATHE OPERATOR Hospital Encounter Endoscopy [address] [address] [address] Catrachito Link MD Epigastric pain; Abdominal pain [...] (11/16/2022): Added automatically from request for surgery [id number] Family history of malignant neoplasm of gastrointestinal tract 11/16/2022 Overview (11/16/2022): Added automatically from request for surgery [id number] Parkinson disease 06/10/2021 Assessment & Plan (11/18/2021 4:42 PM BENCH LATHE OPERATOR): Patient continues at this time on [...] on file Legal Sex Female 9:09 PM BENCH LATHE OPERATOR Gender Identity Not on file Sexual Orientation Not on file Last Filed Vital Signs Vital Sign Reading Time Taken Comments Blood Pressure 119/79 01/26/2025 3:50 PM BENCH LATHE OPERATOR Pulse 93 01/26/2025 3:50 PM BENCH LATHE OPERATOR Temperature 36.3 C (97.3 F) 12/19/2024 9:15 AM BENCH LATHE OPERATOR Respiratory Rate 20 01/26/2025 3:50 PM BENCH LATHE OPERATOR Oxygen Saturation 97% 01/26/2025 3:50 PM BENCH LATHE OPERATOR Inhaled Oxygen Concentration - - Weight 90.7 kg (200 lb) 01/26/2025 3:50 PM BENCH LATHE OPERATOR Height 167.6 cm (5' 6 ) 01/26/2025 3:50 PM BENCH LATHE OPERATOR Body Mass Index 32.28 01/26/2025 3:50 PM BENCH LATHE OPERATOR Plan of Treatment Scheduled Procedures Name Priority Associated Diagnoses Date/Ti me COLONOSCOPY Colon cancer screening Procedures Procedure Name Priority Date/Time Associated Diagnosis Comments COLONOSCOPY 12/19/2024 8:53 AM BENCH LATHE OPERATOR SURGICAL PATHOLOGY Routine 12/19/2024 8:51 AM BENCH LATHE OPERATOR Epigastric pain Abdominal pain ESOPHAGOGASTRODUODENOSCOPY BIOPSY 12/19/2024 8:43 AM BENCH LATHE OPERATOR Epigastric pain Abdominal pain COLON BIOPSY 12/19/2024 8:43 AM BENCH LATHE OPERATOR Epigastric pain Abdominal pain EGD 12/19/2024 8:41 AM BENCH LATHE OPERATOR from Last 3 Months Results * Colonoscopy (12/19/2024 8:53 AM BENCH LATHE OPERATOR) Anatomical Region Laterality Modality Other Narrative Procedure Note Catrachito Link MD - 12/19/2024 8:53 AM CST ENDOSCOPY LAB Patient Name: Bijal Douglas Procedure Date: 12/19/2024 8:53 AM Date of : 1965 Admit Type: Outpatient Age: 59 Gender: Female Attending MD: Catrachito Link M.D. Room: [facility] ENDOSCOPY ROOM 04 Note Status: Finalized [...] The scope was passed under direct vision.The [id number] was introduced through the anusand advanced to [...] Final * Surgical pathology (12/19/2024 8:51 AM BENCH LATHE OPERATOR) Tissue specimen (specimen) (Gastric/Stomach biopsy) 12/19/2024 8:51 AM BENCH LATHE OPERATOR Tissue specimen (specimen) (Polyp(s), colon/colorectal, esophageal, gastric) 12/19/2024 9:04 AM BENCH LATHE OPERATOR Narrative PATHOLOGY [facility] - 12/21/2024 1:46 PM BENCH LATHE OPERATOR EPIC results best viewed via link to PDF [facility] [place] [address] Note to Patients: This report may contain [...] Gender: F : 1965 (Age: 59) Address: [address] [place], [place] [id number] Hospital #: [id number] Taken:12/19/2024 Received:12/19/2024 Reported: 12/21/2024 Patient Type: [facility] SAME Client [facility] Service: Gastro Location: Physician(s): Homer Hicks FNP Diagnosis: A. Stomach, random biopsy: - Antral mucosa with reactive epithelial changes. - No Helicobacter pylori is seen. B. Colon, polyps, polypectomy: - Polypoid colonic mucosa with lymphoid aggregate and reactive epithelial changes. [facility] hospital/12/20/2024 13:00 By this signature, I attest [...] interpretation for this case was performed at [facility], Department of Surgical Pathology, [address] [facility] [place], [place] [id number], [place] [address] CLIA # [id number] The performance characteristics of some immunohistochemical stains, fluorescence in-situ hybridization tests and immunophenotyping by flow cytometry cited in this report (if any) were determined by the Surgical Pathology and Flow Cytometry Departments at [facility] as part of an ongoing quality control assistant program and in compliance with federally mandated [...] Surgical Pathology and Flow Cytometry Departments of [facility]. It has not been cleared or approved by the U. S. Food and Drug Administration. IMAGES AND SCANNED DOCUMENTS, IF INCLUDED, ONLY VIEWABLE IN PDF VERSION OF REPORT Catrachito Link MD LAB PATHOLOGY ORDERABLES F inal Result PATHOLOGY [facility] [phone] * EGD (12/19/2024 8:41 AM BENCH LATHE OPERATOR) Anatomical Region Laterality Modality Other Narrative Procedure Note Catrachito Link MD - 12/19/2024 8:41 AM CST ENDOSCOPY LAB Patient Name: Bijal Douglas Procedure Date: 12/19/2024 8:41 AM Date of : 1965 Admit Type: Outpatient Age: 59 Gender: Female Attending MD: Catrachito Link M.D. Room: [facility] ENDOSCOPY ROOM 04 Note Status: Finalized [...] and oxygen saturations were monitored continuously. The [id number] was introduced through the mouth,and advanced to [...] Final Result from Last 3 Months Insurance [employer] [place] [facility] Advance Directives For more information, please contact: [phone] * Full Code (Latest Code Status on File) Date Activated Date Inactivated Comments 12/19/2024 7:45 AM 12/19/2024 6:30 PM * Full Code Date Activated Date Inactivated Comments 11/18/2022 11:43 AM 11/18/2022 5:30 PM Care Teams Mud Mill Tender Relationship Specialty Start Date End Date Nancy Alvares NP [address] [place] [address] PCP - General Nurse Practitioner 10/08/21
--- OUTSIDE RECORDS SUMMARY | 2025-03-13 17:02 | XMS_ITS | Encounter Summary ---
Author Organization [facility] Address [address] [place] [address] Care Team Providers Care Contact Lens Manufacturer Name Role Phone Nancy Alvares Primary Care Provider [phone] Encounter Details Date Type Department Care Team (Late st Contact Info) Description 07/08/2023 Able Devicet Message Enc [facility] Family & Internal [address] [phone] Nancy Alvares FNP [address] [place] [address] Copy of updated insurance card Social History [...] CDT Gender Identity Female 12/23/2021 9:01 AM ADVERTISING SPECIALIST Sexual Orientation Straight 12/23/2021 9: 01 AM ADVERTISING SPECIALIST documented as of this encounter Plan of Treatment Upcoming Encounters Date Type Department Care Team (Late Contact Info) Description 09/20/2025 11:00 AM CDT Office Visit [facility] Family & Internal [address] [phone] Nancy Alvares FNP [address] [place] [address] documented as of this encounter Visit Diagnoses Not on filedocumented in this encounter Additional Health Concerns Infection Onset Date Last Indicated Resolved Time COVID-19 Rule Out 03/08/2025 03/08/2025 03/08/2025 10:26 PM CDT Respiratory Rule-Out 03/08/2025 03/08/2025 025 10:25 PM CDT Assessment Noted Time PHQ-9 Depression Total Score: 12 021 12:38 PM CDT documented as of this encounter Care Teams Contact Lens Manufacturer Relationship Specialty Start Date End Date Nancy Alvares FNP [address] [place] [address] PCP - General Nurse Practitioner Family 09/12/21 documented as of this encounter
--- OUTSIDE RECORDS SUMMARY | 2025-03-13 17:02 | XMS_ITS | Encounter Summary ---
Author Organization [facility] Address [address] [place] [address] Phone Care Team Providers Care Aeronautical Engineering Officer Name Role Phone Nancy Alvares NP Primary Care Provider [phone] Encounter Details Date Type Department Care Team [...] on file Legal Sex Female 9:09 PM GOLF CART MAKER Gender Identity Not on file Sexual Orientation [...] on filedocumented in this encounter Care Teams Aeronautical Engineering Officer Relationship Specialty Start Date End Date Nancy Alvares NP [address] [place] [address] PCP - General Nurse Practitioner 10/08/21 documented as of this encounter
--- OUTSIDE RECORDS SUMMARY | 2025-03-13 17:02 | XMS_ITS | Encounter Summary ---
Author Organization [facility] Address [address] [place] [address] Care Team Providers Care Logistics Team Leader Name Role Phone Nancy Alvares Primary Care Provider [phone] Reason for Visit * Reason Comments Cough Patient presenting t o the office today for follow up chronic cough ER F/U Patient was seen las t week at [facility] ER - she has a syncopal episode - she feels a lot better but not well- she is still nauseas, stomach is making some gurgling sounds, fatigue Spasm Of Muscle Also c/o muscle cont ractions and retracts into her body (not a beckie horse) she cannot use her arms when this is happening it happens to both arms never just on side- Encounter Details Date Type Department Care Team (Late st Contact Info) Description 03/13/2025 11:20 AM CDT Office Visit [facility] Family & Internal Medicine - [address] [address] Nancy Alvares FNP [address] [place] [address] Cough (Patient presenting to the office today for follow up chronic cough); ER F/U (Patient was seen last week at [facility] ER - she has a syncopal episode - she feels a lot better but not well- she is still nauseas, stomach is making some gurgling sounds, fatigue ); Spasm Of Muscle (Also c/o muscle contractions and retracts into her body (not a beckie horse) she cannot use her arms when this is happening it happens to both arms never just on side- ) Social History Tobacco Use Types Packs/Day Years [...] CDT Gender Identity Female 12/23/2021 9:01 AM INSTANT PRINTER OPERATOR Sexual Orientation Straight 12/23/2021 9: 01 AM INSTANT PRINTER OPERATOR documented as of this encounter Last Filed Vital Signs Vital Sign Reading Time Taken Comments Blood Pressure 128/72 03/13/2025 11:51 AM CDT Pulse 76 03/13/2025 11:51 AM CDT Temperature 36.4 C (97.5 F) 03/13/2025 11:51 AM CDT Respiratory Rate 98 03/13/2025 11:51 AM CDT Oxygen Saturation - - Inhaled Oxygen Concentration - - Weight 92.8 kg (204 lb 8 oz) 03/13/2025 11:51 AM CDT Height 167.6 cm (5' 6 ) 03/13/2025 11:51 AM CDT Body Mass Index 33.01 03/13/2025 11:51 AM CDT documented in this encounter Functional Status * Over the [...] Health Questionnaire-2 Score 0 03/13/2025 11:51 AM STEWARTT Radha Hendricks MA Active documented as of this encounter Patient Instructions * Patient Instructions* KIANNA Denis - 03/13/2025 11:20 AM CDT Continue advancing your diet as tolerated We will call you with your lab results once they come back Call for any questions or concerns Follow-up routinely at least every 6 months, sooner if needed, especially if your symptoms do not improve over the next couple days or follow-up if you have any new or worsening symptoms documented in this encounter Plan of Treatment Upcoming Encounters Date Type Department Care Team (Late st Contact Info) Description 09/20/2025 11:00 AM CDT Office Visit [facility] Family & Internal Medicine - [place] [address] [place] [address] Nancy Alvares FNP [address] [place] [address] Scheduled Orders Name Type Priority Associated Diagnoses Orde r Schedule CBC W/DIFF AUTOMATED Lab Routine Hypokalemia Nausea and vomiting, unspecified vomiting type Fever, unspecified fever cause Expected: 03/13/2025, Expires: 03/13/2026 COMPREHENSIVE METABOLIC PANEL Lab Routine Hypokalemia Nausea and vomiting, unspecified vomiting type Fever, unspecified fever cause Expected: 03/13/2025, Expires: 03/13/2026 MAGNESIUM Lab Routine Hypomagnesemia Expected: 03/13/2025, Expires: 03/13/2026 documented as of this encounter Procedures Procedure Name Priority Date/Time Associated Diagnosis Comments URINALYSIS AUTO DIP Today 03/13/2025 1 2:36 PM CDT Recent urinary tract infection documented in this encounter Results * URINALYSIS AUTO DIP (03/13/2025 12:36 PM CDT) COLOR (U) PALE YELLOW YELLOW [facility] TRANSPARENCY CLEAR [facility] GLUCOSE (U) NEGATIVE NEGATIVE MG/DL [facility] BILIRUBIN (U) NEGATIVE NEGATIVE [facility] MG/DL (U) NEGATIVE NEGATIVE MG/DL [facility] SPECIFIC GRAVITY (U) 1.015 1.001 - 1.035 [facility] BLOOD (U) NEGATIVE NEGATIVE [facility] U PH 7.0 5.0 - 9.0 [facility] PROTEIN (U) NEGATIVE NEGATIVE mg/dL [facility] UROBILINOGEN 0.2 0.2 - 1.0 EU/dL = mg/dL [facility] NITRITES NEGATIVE NEGATIVE MG/DL [facility] LEUKOCYTES (U) NEGATIVE NEGATIVE [facility] URINE SPECIMEN OBTAINED BY CLEAN CATCH PROCEDURE / Unknown 03/13/2025 12:36 PM CDT us Nancy HUTCHISON URINE ORDERABLES Final Result Performing Organization Address City/State/[facility] Co de Phone Number [facility] [address] [place] [address], documented in this encounter Visit Diagnoses Diagnosis Hypokalemia- Primary Hypopotassemia Nausea and vomiting, unspecified vomiting type Fever, unspecified fever cause Recent urinary tract infection Hypomagnesemia Disorders of magnesium metabolism documented in this encounter Additional Health Concerns Assessment Noted Time PHQ-9 Depression Total Score: 21 023 4:28 PM INSTANT PRINTER OPERATOR documented as of this encounter Care Teams Logistics Team Leader Relationship Specialty Start Date End Date Nancy Alvares FNP [address] [place] [address] PCP - General Nurse Practitioner Family 09/12/21 documented as of this encounter
--- OUTSIDE RECORDS SUMMARY | 2025-03-13 17:02 | XMS_ITS | Encounter Summary ---
Author Organization [facility] Address [address] [place] [address] Phone Care Team Providers Care Bread Racker Name Role Phone Morro Doyle MD Primary Care Provider [phone] Nancy Alvares NP Primary Care Provider + [phone] Encounter Details Date Type Department Care Team [...] on file Legal Sex Female 9:09 PM MERCHANDISE STOCKER Gender Identity Not on file Sexual Orientation [...] on filedocumented in this encounter Care Teams Bread Racker Relationship Specialty Start Date End Date Morro Doyle MD [address] [place] [address] PCP - General Internal Medicine 06/10/21 10/07/21 Nancy Alvares NP [address] [place] [address] PCP - General Nurse Practitioner 10/08/21 documented as of this encounter
--- OUTSIDE RECORDS SUMMARY | 2025-03-13 17:02 | XMS_ITS | Encounter Summary ---
Author Organization [facility] Address [address] [place] [address] Phone Care Team Providers Care Fare Collector Name Role Phone Kiran Garvey MD Primary Care Provider + [phone] Kiran Garvey MD Primary Care Provider + [phone] Lorena Taylor MD Primary Care Provider + [phone] Dante Olivarez Primary Care Provider [phone] Morro Doyle MD Primary Care Provider [phone] Nancy Alvares NP Primary Care Provider + [phone] Encounter Details Date Type Department Care Team (Latest Contact Info) Description 11/23/2006 Orders Only [facility] Scanning, Provider Social History Tobacco Use Types Packs/Day Years Used Date Smoking Tobacco: Never Assessed Comments Unknown Sex and Gender Information Value Date Recorded Sex Assigned at Not on file Legal Sex Female 9:09 PM MENTAL HEALTH THERAPIST Gender Identity Not on file Sexual Orientation [...] on filedocumented in this encounter Care Teams Fare Collector Relationship Specialty Start Date End Date Malench, Kiran E., MD [address] [place] [address] PCP - General 02/26/17 01/25/19 Kiran Garvey MD [address] [place] [address] PCP - General 03/21/15 02/25/17 Lorena Taylor MD [address] [place] [address] PCP - General Family Practice 01/26/19 03/31/21 Dante Olivarez PA [address] [place] [address] PCP - General Physician Marine Railway Operator 04/01/21 06/09/21 Morro Doyle MD [address] [facility] [address] [place] [address] PCP - General Internal Medicine 06/10/21 10/07/21 Nancy Alvares NP [address] [place] [id number] PCP - General Nurse Practitioner 10/08/21 documented as of this encounter
--- OUTSIDE RECORDS SUMMARY | 2025-03-13 17:02 | XMS_ITS | Encounter Summary ---
Author Organization [facility] Address [address] [place] [address] Phone Care Team Providers Care Pavilion Cutter Name Role Phone Lorena Taylor MD Primary Care Provider + [phone] Dante Olivarez Primary Care Provider [phone] Morro Doyle MD Primary Care Provider [phone] Nancy Alvares NP Primary Care Provider + [phone] Encounter Details Date Type Department Care Team [...] on file Legal Sex Female 9:09 PM GLUE SIZE MACHINE OPERATOR Gender Identity Not on file [...] on filedocumented in this encounter Care Teams Pavilion Cutter Relationship Specialty Start Date End Date Lorena Taylor MD PCP - General Family Practice 01/26/19 03/31/21 Dante Olivarez, ALVERTO [address] [place] [address] PCP - General Physician Valet Parking Attendant 04/01/21 06/09/21 Morro Doyle MD [address] [facility] [address] [place] [address] PCP - General Internal Medicine 06/10/21 10/07/21 Nancy Alvares, RODRICK [facility] [place] [address] PCP - General Nurse Practitioner 10/08/21 documented as of this encounter
--- OUTSIDE RECORDS SUMMARY | 2025-03-13 17:02 | XMS_ITS | Encounter Summary ---
Author Organization [facility] Address [address] [place] [address] Care Team Providers Care General Scrap Worker Name Role Phone Nancy Alvares Primary Care Provider [phone] Encounter Details Date Type Department Care Team (Late st Contact Info) Description 08/13/[address] [facility] Family & Internal Medicine [facility] [address] [place] [address] Nancy Alvares FNP [facility] [place], [place] [phone] Sick Social History Tobacco Use Types Packs/Day [...] CDT Gender Identity Female 12/23/2021 9:01 AM UNIT MANAGER CONVENIENCE STORES Sexual Orientation Straight 12/23/2021 9: 01 AM UNIT MANAGER CONVENIENCE STORES documented as of this encounter Progress Notes [...] Description 09/20/2025 11:00 AM CDT Office Visit [facility] Family & Internal Medicine - [place] [address] [place] [address] Nancy Alvares FNP [address] [place] [address] documented as of this encounter Visit Diagnoses Not on filedocumented in this encounter Additional Health Concerns Infection Onset Date Last Indicated Resolved Time COVID-19 Rule Out 03/08/2025 03/08/2025 03/08/2025 10:26 PM CDT Respiratory Rule-Out 03/08/2025 03/08/2025 025 10:25 PM CDT Assessment Noted Time PHQ-9 Depression Total Score: 12 021 12:38 PM CDT documented as of this encounter Care Teams General Scrap Worker Relationship Specialty Start Date End Date Nancy Alvares FNP [facility] [place] [address] PCP - General Nurse Practitioner Family 09/12/21 documented as of this encounter
--- OUTSIDE RECORDS SUMMARY | 2025-03-13 17:03 | XMS_ITS | Encounter Summary ---
Author Organization [facility] Address [address] [place] [address] Care Team Providers Care Welfare Adviser Name Role Phone Nancy Alvares Primary Care Provider [phone] Encounter Details Date Type Department Care Team (Latest Contact Info) Description 09/22/2022 MyChart Message Enc [facility] Family & Internal Medicine [facility] [address] [place] [address] Nancy Alvares FNP [address] [place], [place] [phone] Form Builder Referral Social History Tobacco Use Types Packs/Day [...] CDT Gender Identity Female 12/23/2021 9:01 AM MACHINERY REPAIR MAINTENANCE SUPERVISOR Sexual Orientation Straight 12/23/2021 9: 01 AM MACHINERY REPAIR MAINTENANCE SUPERVISOR COVID-19 Exposure Response Date Recorded In the [...] Description 09/20/2025 11:00 AM CDT Office Visit [facility] Family & Internal Medicine - [place] [address] [place] [address] Nancy Alvares FNP [address] [place] [address] documented as of this encounter Visit Diagnoses Not on filedocumented in this encounter Additional Health Concerns Infection Onset Date Last Indicated Resolved Time COVID-19 Rule Out 03/08/2025 03/08/2025 03/08/2025 10:26 PM CDT Respiratory Rule-Out 03/08/2025 03/08/2025 025 10:25 PM CDT Assessment Noted Time PHQ-9 Depression Total Score: 12 021 12:38 PM CDT documented as of this encounter Care Teams Welfare Adviser Relationship Specialty Start Date End Date Nancy Alvares FNP [facility] [place] [address] PCP - General Nurse Practitioner Family 09/12/21 documented as of this encounter
--- OUTSIDE RECORDS SUMMARY | 2025-03-13 17:03 | XMS_ITS | Encounter Summary ---
Author Organization [facility] Address [address] [place] [address] Phone Care Team Providers Care Infant Room Teacher Name Role Phone Kiran Garvey MD Primary Care Provider + [phone] Kiran Garvey MD Primary Care Provider + [phone] Lorena Taylor MD Primary Care Provider + [phone] Dante Olivarez Primary Care Provider [phone] Morro Doyle MD Primary Care Provider [phone] Nancy Alvares NP Primary Care Provider + [phone] Encounter Details Date Type Department Care Team (Latest Contact Info) Description 02/27/2015 Orders Only [facility] Scanning, Provider Social History Tobacco Use Types Packs/Day Years Used Date Smoking Tobacco: Never Assessed Comments Unknown Sex and Gender Information Value Date Recorded Sex Assigned at Not on file Legal Sex Female 9:09 PM WILL CALL ORDER CLERK Gender Identity Not on file Sexual [...] on filedocumented in this encounter Care Teams Infant Room Teacher Relationship Specialty Start Date End Date Malench, Kiran E., MD [address] [place] [address] PCP - General 02/26/17 01/25/19 Kiran Garvey MD [address] [place] [address] PCP - General 03/21/15 02/25/17 Lorena Taylor MD [address] [place] [address] PCP - General Family Practice 01/26/19 03/31/21 Dante Olivarez PA [address] [place] [address] PCP - General Physician Mat Man 04/01/21 06/09/21 Morro Doyle MD [address] [facility] [address] [place] [address] PCP - General Internal Medicine 06/10/21 10/07/21 Nancy Alvares NP [address] [place] [id number] PCP - General Nurse Practitioner 10/08/21 documented as of this encounter
--- OUTSIDE RECORDS SUMMARY | 2025-03-13 17:03 | XMS_ITS | Encounter Summary ---
Author Organization [facility] Address [address] [place] [address] Care Team Providers Care Computer Terminal Operator Name Role Phone Nancy Alvares Primary Care Provider [phone] Encounter Details Date Type Department Care Team (Late st Contact Info) Description 03/16/2022 MyChart Message Enc [facility] Family & Internal Medicine [facility] [address] [place] [address] Nancy Alvares FNP [address] [place], [place] [phone] Left knee severe pain Social History Tobacco [...] CDT Gender Identity Female 12/23/2021 9:01 AM SHEET ROCK NAILER Sexual Orientation Straight 12/23/2021 9: 01 AM SHEET ROCK NAILER COVID-19 Exposure Response Date Recorded In the [...] Description 09/20/2025 11:00 AM CDT Office Visit [facility] Family & Internal Medicine - [place] [address] [place] [address] [facility] [place] [address] documented as of this encounter Visit Diagnoses Not on filedocumented in this encounter Additional Health Concerns Infection Onset Date Last Indicated Resolved Time COVID-19 Rule Out 03/08/2025 03/08/2025 03/08/2025 10:26 PM CDT Respiratory Rule-Out 03/08/2025 03/08/2025 025 10:25 PM CDT Assessment Noted Time PHQ-9 Depression Total Score: 12 021 12:38 PM CDT documented as of this encounter Care Teams Computer Terminal Operator Relationship Specialty Start Date End Date Nancy Alvares FNP [address] [place] [address] PCP - General Nurse Practitioner Family 09/12/21 documented as of this encounter
--- OUTSIDE RECORDS SUMMARY | 2025-03-13 17:03 | XMS_ITS | Encounter Summary ---
Author Organization [facility] Address [address] [place] [address] Care Team Providers Care Stress Analyst Name Role Phone Nancy Alvares Primary Care Provider [phone] Encounter Details Date Type Department Care Team (Late Contact Info) Description 11/09/2022 MyChart Message Enc [facility] Family & Internal Medicine [address] [address] Nancy Alvares FNP [facility]1 [place], [place] [phone] Bladder infection Social History Tobacco Use Types [...] CDT Gender Identity Female 12/23/2021 9:01 AM WATER CHEMIST Sexual Orientation Straight 12/23/2021 9: 01 AM WATER CHEMIST documented as of this encounter Plan of Treatment Upcoming Encounters Date Type Department Care Team (Late Contact Info) Description 09/20/2025 11:00 AM CDT Office Visit [facility] Family & Internal Medicine [facility] [address] [place] [address] Nancy Alvares FNP [address] [place] [address] documented as of this encounter Visit Diagnoses Not on filedocumented in this encounter Additional Health Concerns Infection Onset Date Last Indicated Resolved Time COVID-19 Rule Out 03/08/2025 03/08/2025 03/08/2025 10:26 PM CDT Respiratory Rule-Out 03/08/2025 03/08/2025 025 10:25 PM CDT Assessment Noted Time PHQ-9 Depression Total Score: 12 021 12:38 PM CDT documented as of this encounter Care Teams Stress Analyst Relationship Specialty Start Date End Date Nancy Alvares FNP [address] [place] [address] PCP - General Nurse Practitioner Family 09/12/21 documented as of this encounter
--- OUTSIDE RECORDS SUMMARY | 2025-03-13 17:03 | XMS_ITS | Encounter Summary ---
Author Organization [facility] Address [address] [facility] [place] [address] Care Team Providers Care Coating And Baking Operator Name Role Phone Unavailable Primary Care Provider Unavailabl e Encounter Details Date Type Department Care Team (Late st Contact Info) Description 10/12/2024 Lab Requisition [facility] - DermPath Lab [address] [facility], [place] [address] Bharati Jason DO [address] [facility] [address]L [place] [address] Social History Tobacco Use Types Packs/Day Years Used Date Smoking Tobacco: Never Assessed Comments Unknown Sex and Gender Information Value Date Recorded Sex Assigned at Not on file Legal Sex Female 6:37 AM MAPLE SYRUP MAKER Gender Identity Not on file Sexual Orientation Not on file documented as of this encounter Plan of Treatment Not on file documented as of this encounter Procedures Procedure Name Priority Date/Time Associated Diagnosis Comments DERMATOPATHOLOGY Routine 10/12/2024 2:07 PM MAPLE SYRUP MAKER documented in this encounter Results * DERMATOPATHOLOGY (10/12/2024 2:07 PM MAPLE SYRUP MAKER) Case Report Dermatopathology Report Case: [id number] Authorizing Provider: Bharati Jason DO Collected: 10/12/2024 02:07 PM Ordering Location: [facility] Physician [facility] - Received: 10/13/2024 11:00 AM DermPath Lab Pathologist: Kerry Garcia MD Specimen: Skin, left medial cheek 4 12:27 PM MAPLE SYRUP MAKER DERMATOPATHOLOGY LABORATORY Final Diagnosis Specimen A. SKIN, left medial cheek: ACTINIC KERATOSIS (L57.0) 4 12:27 PM MAPLE SYRUP MAKER DERMATOPATHOLOGY LABORATORY Clinical History R/O BCC 4 12:27 PM [facility] DERMATOPATHOLOGY LABORATORY Gross Description Specimen A: Received is one formalin filled container labeled with the patient's name and designated left medial cheek. The specimen consists of a shave biopsy measuring 4x2x1 mm. Jar 0. 4 12:27 PM [facility] DERMATOPATHOLOGY LABORATORY Microscopic Description Specimen A. SKIN, left medial cheek: There is focal parakeratosis. The lower half of the epidermis shows disorderly maturation of keratinocytes with nuclear pleomorphism. 4 12:27 PM [facility] DERMATOPATHOLOGY LABORATORY Disclaimer An external and internal positive and negative controls are appropriate for the histochemical, immunohistochemical and immunofluorescence stain(s) in this case (if any), except where stated explicitly. The performance characteristics of the stain(s) cited in this report were developed and its performance characteristic determined by the Dermatopathology Laboratory at [facility], directed by Dr. Pebbles Leavitt. These tests need not be, and therefore are not, approved by the [place] Food and Drug Administration. The tests are used for clinical purposes. Billing Codes Specimen Charges Stain Charges 68780 1 4 12:27 PM [facility] DERMATOPATHOLOGY LABORATORY Embedded Images 4 12:27 PM [facility] DERMATOPATHOLOGY LABORATORY Pathology/Cytolo gy TISSUE SPECIMEN FROM SKIN / Unknown 10/12/2024 2:07 PM MAPLE SYRUP MAKER 10/13/2024 11:00 AM MAPLE SYRUP MAKER us Bharati Jason DO LAB - PATHOLOGY/CYTOLOGY ORDERABLES Final Result DERMATOPATHOLOGY LABORATORY [facility] - Department of Dermatology [address], [address] [phone] documented in this encounter Visit Diagnoses Not on filedocumented in this encounter
--- OUTSIDE RECORDS SUMMARY | 2025-03-13 17:03 | XMS_ITS | Encounter Summary ---
Author Organization [facility] Address [address] [place] [address] Care Team Providers Care High School Music Teacher Name Role Phone Nancy Alvares Primary Care Provider [phone] Encounter Details Date Type Department Care Team (Late st Contact Info) Description 10/12/2024 OnFarmt Message Enc [facility] Family [facility] Internal Medicine [facility] [address] [place] [address] Nancy Alvares FNP [facility] [place], [place] [id number] EDG & Colonoscopy Referral Social History Tobacco [...] CDT Gender Identity Female 12/23/2021 9:01 AM HELICOPTER OFFICER Sexual Orientation Straight 12/23/2021 9: 01 AM HELICOPTER OFFICER documented as of this encounter Progress Notes * KIANNA Denis - 10/17/2024 3:33 PM CST Oh I thought she wanted a GI referral? COPTER OFFICER * Lian Marrufo - 10/12/2024 12:41 PM CST Patient called back and wanted to speak to Nancy about this referral. Everyone is a lunch so I told her that someone will give her a call once the message has been read. COPTER OFFICER documented in this encounter Plan of Treatment Upcoming Encounters Date Type Department Care Team (Late st Contact Info) Description 09/20/2025 11:00 AM CDT Office Visit [facility] Family [facility] Internal Medicine - [place] [id number] [place] [address] Nancy Alvares FNP [address] [place] [address] documented as of this encounter Visit Diagnoses Not on filedocumented in this encounter Additional Health Concerns Infection Onset Date Last Indicated Resolved Time COVID-19 Rule Out 03/08/2025 03/08/2025 03/08/2025 10:26 PM CDT Respiratory Rule-Out 03/08/2025 03/08/2025 025 10:25 PM CDT Assessment Noted Time PHQ-9 Depression Total Score: 21 023 4:28 PM HELICOPTER OFFICER documented as of this encounter Care Teams High School Music Teacher Relationship Specialty Start Date End Date Nancy Alvares FNP [address] [place] [address] PCP - General Nurse Practitioner Family 09/12/21 documented as of this encounter
--- OUTSIDE RECORDS SUMMARY | 2025-03-13 17:03 | XMS_ITS | Encounter Summary ---
Author Organization [facility] Address [address] [place] [address] Phone Care Team Providers Care Hooker Up Name Role Phone Kiran Garvey MD Primary Care Provider + [phone] Kiran Garvey MD Primary Care Provider + [phone] Lorena Taylor MD Primary Care Provider + [phone] Dante Olivarez Primary Care Provider [phone] Morro Doyle MD Primary Care Provider [phone] Nancy Alvares NP Primary Care Provider + [phone] Encounter Details Date Type Department Care Team (Latest Contact Info) Description 03/19/2015 Orders Only [facility] Scanning, Provider Social History Tobacco Use Types Packs/Day Years Used Date Smoking Tobacco: Never Assessed Comments Unknown Sex and Gender Information Value Date Recorded Sex Assigned at Not on file Legal Sex Female 9:09 PM WAREHOUSE INVENTORY CLERK Gender Identity Not on file Sexual [...] on filedocumented in this encounter Care Teams Hooker Up Relationship Specialty Start Date End Date Kiran Garvey MD [address] [place] [address] PCP - General 02/26/17 01/25/19 Kiran Garvey MD [address] [place] [address] PCP - General 03/21/15 02/25/17 Lorena Taylor MD [address] [place] [address] PCP - General Family Practice 01/26/19 03/31/21 Dante Olivarez, PA [address] [place] [address] PCP - General Physician Diver Pumper 04/01/21 06/09/21 Morro Doyle MD [address] [facility] [address] [place] [address] PCP - General Internal Medicine 06/10/21 10/07/21 Nancy Alvares LINE CONSTRUCTION SUPERVISOR [address] [place] [address] PCP - General Nurse Practitioner 10/08/21 documented as of this encounter
--- OUTSIDE RECORDS SUMMARY | 2025-03-13 17:03 | XMS_ITS | Encounter Summary ---
Author Organization [facility] Address [address] [place] [address] Care Team Providers Care Tassel Snipper Name Role Phone Nancy Alvares Primary Care Provider [phone] Encounter Details Date Type Department Care Team (Late st Contact Info) Description 07/13/2022 MyChart Message Enc [facility] Family & Internal Medicine [facility] [address] [place] [address] Nancy Alvares FNP [address] [place], [place] [id number] Lorazepam Social History Tobacco Use Types Packs/Day [...] CDT Gender Identity Female 12/23/2021 9:01 AM DIRECTOR OF CONSERVATION Sexual Orientation Straight 12/23/2021 9: 01 AM DIRECTOR OF CONSERVATION documented as of this encounter Progress Notes * Kiley Jimenes MA - 07/13/2022 5:14 PM CDTFrom: Bijal Kyle To: Nancy Alvarse Sent: 07/13/2022 12:13 PM CDT Subject: Lorazepam I had [facility] submit for my refill on my Lorazapam 0.5 MG that I take one every 8 hours and have always received 90 tablets for the month. I went to grain picker my refill on July 10 and it had the same instructions, but on was for 30 pills. Can you have Nancy send in an updated refill like the previous ones? Thank you, P kelsie Kyle documented in this encounter Plan of Treatment Upcoming Encounters Date Type Department Care Team (Late st Contact Info) Description 09/20/2025 11:00 AM CDT Office Visit [facility] Family & Internal Medicine - [address] [address] Nancy Alvares FNP [address] [place] [address] documented as of this encounter Visit Diagnoses Not on filedocumented in this encounter Additional Health Concerns Infection Onset Date Last Indicated Resolved Time COVID-19 Rule Out 03/08/2025 03/08/2025 03/08/2025 10:26 PM CDT Respiratory Rule-Out 03/08/2025 03/08/2025 025 10:25 PM CDT Assessment Noted Time PHQ-9 Depression Total Score: 12 021 12:38 PM CDT documented as of this encounter Care Teams Tassel Snipper Relationship Specialty Start Date End Date Nancy Alvares FNP [address] [place] [address] PCP - General Nurse Practitioner Family 09/12/21 documented as of this encounter
--- OUTSIDE RECORDS SUMMARY | 2025-03-13 17:03 | XMS_ITS | Encounter Summary ---
Author Organization [facility] Address [address] [place] [address] Phone Care Team Providers Care Supervisor Nutritional Yeast Name Role Phone Kiran Garvey MD Primary Care Provider + [phone] Kiran Garvey MD Primary Care Provider + [phone] Lorena Taylor MD Primary Care Provider + [phone] Dante Olivarez Primary Care Provider [phone] Morro Doyle MD Primary Care Provider [phone] Nancy Alvares NP Primary Care Provider + [phone] Encounter Details Date Type Department Care Team (Latest Contact Info) Description 02/27/2011 Orders Only [facility] Scanning, Provider Social History Tobacco Use Types Packs/Day Years Used Date Smoking Tobacco: Never Assessed Comments Unknown Sex and Gender Information Value Date Recorded Sex Assigned at Not on file Legal Sex Female 9:09 PM SET UP OPERATOR Gender Identity Not on file Sexual [...] on filedocumented in this encounter Care Teams Supervisor Nutritional Yeast Relationship Specialty Start Date End Date Malench, Kiran E., MD [address] [place] [address] PCP - General 02/26/17 01/25/19 Kiran Garvey MD [address] [place] [place] [address] PCP - General 03/21/15 02/25/17 Lorena Taylor MD [address] [place] [place] [address] PCP - General Family Practice 01/26/19 03/31/21 Dante Olivarez PA [address] [place] [address] PCP - General Physician Plumbing Engineering Draftsperson 04/01/21 06/09/21 Morro Doyle MD [address] [facility] [address] [place] [address] PCP - General Internal Medicine 06/10/21 10/07/21 Nancy Alvares NP [address] [place] [id number] PCP - General Nurse Practitioner 10/08/21 documented as of this encounter
--- OUTSIDE RECORDS SUMMARY | 2025-03-13 17:03 | XMS_ITS | Encounter Summary ---
Author Organization [facility] Address [address] [place] [address] Care Team Providers Care Senior Wind Energy Consultant Name Role Phone Nancy Alvares Primary Care Provider [phone] Encounter Details Date Type Department Care Team (Late st Contact Info) Description 02/18/2022 MyChart Message Enc [facility] Family & Internal Medicine [facility] [address] [place] [address] Nancy Alvares FNP [address] [place], [place] [phone] Bladder infection Social History Tobacco Use Types [...] CDT Gender Identity Female 12/23/2021 9:01 AM SAND HAULER Sexual Orientation Straight 12/23/2021 9: 01 AM SAND HAULER COVID-19 Exposure Response Date Recorded In the [...] Description 09/20/2025 11:00 AM CDT Office Visit [facility] Family & Internal Medicine - [address] [address] Nancy Alvares FNP [address] [place] [address] documented as of this encounter Visit Diagnoses Not on filedocumented in this encounter Additional Health Concerns Infection Onset Date Last Indicated Resolved Time COVID-19 Rule Out 03/08/2025 03/08/2025 03/08/2025 10:26 PM CDT Respiratory Rule-Out 03/08/2025 03/08/2025 025 10:25 PM CDT Assessment Noted Time PHQ-9 Depression Total Score: 12 021 12:38 PM CDT documented as of this encounter Care Teams Senior Wind Energy Consultant Relationship Specialty Start Date End Date Nancy Alvares FNP [address] [place] [address] PCP - General Nurse Practitioner Family 09/12/21 documented as of this encounter
--- OUTSIDE RECORDS SUMMARY | 2025-03-13 17:03 | XMS_ITS | Encounter Summary ---
Author Organization [facility] Address [address] [place] [address] Care Team Providers Care Quality System Manager Name Role Phone Nancy Alvares Primary Care Provider [phone] Encounter Details Date Type Department Care Team (Late Contact Info) Description 12/24/2021 Neven Visiont Message Enc [facility] Family & Internal Medicine [address] [address] [facility] Provider Appointment Reschedule Social History [...] CDT Gender Identity Female 12/23/2021 9:01 AM BUTTON TACKER Sexual Orientation Straight 12/23/2021 9: 01 AM BUTTON TACKER documented as of this encounter Plan of Treatment Upcoming Encounters Date Type Department Care Team (Late st Contact Info) Description 09/20/2025 11:00 AM CDT Office Visit [facility] Family & Internal Medicine [address] [phone] Nancy Alvares FNP [address] [place] [phone] documented as of this encounter Visit Diagnoses Not on filedocumented in this encounter Additional Health Concerns Infection Onset Date Last Indicated Resolved Time COVID-19 Confirmed 12/12/2021 12/12/2021 12:34 AM BUTTON TACKER COVID-19 Rule Out 03/08/2025 03/08/2025 03/08/2025 10:26 PM CDT Respiratory Rule-Out 03/08/2025 03/08/2025 025 10:25 PM CDT Assessment Noted Time PHQ-9 Depression Total Score: 12 021 12:38 PM CDT documented as of this encounter Care Teams Quality System Manager Relationship Specialty Start Date End Date Nancy Alvares FNP [address] [place] [address] PCP - General Nurse Practitioner Family 09/12/21 documented as of this encounter
--- OUTSIDE RECORDS SUMMARY | 2025-03-13 17:03 | XMS_ITS | Clinical Summary ---
Author Organization [facility] Address [facility] [place] [address] Care Team Providers Care Speed Reading Teacher Name Role Phone Nicole Holt KIANNA Primary Care Provider [phone] Allergies No known active allergies Medications Aspirin-Acetamino phen-Caffeine (EXCEDRIN EXTRA STRENGTH OR) Take 1 tablet by mouth every morning. Active folic acid (FOLVITE) 1 MG tabletIndications :Folic acid deficiency TAKE 1 TABLET(1 MG) BY MOUTH DAILY 90 tablet 3 024 Active eletriptan (RELPAX) 40 MG tabletIndications :Chronic migraine without aura without status migrainosus, not intractable Take 1 tablet (40 mg total) by mouth daily as needed. may repeat in 2 hours if necessary 12 tablet 3 024 Active vitamin D3 (CHOLECALCIFEROL) 1.25 mg capsuleIndication s:Vitamin D deficiency Take 1 capsule (50,000 Units total) by mouth once a week. 12 capsule 3 024 Active HYDROcodone-chlor pheniramine ER (TUSSIONEX) 10-8 MG/5ML suspensionIndicat ions:Cough Take 2.5-5 mLs by mouth every 12 (twelve) hours as needed. Indications: Cough 115 mL 025 Active Additional Information Patient not taking.Reported on 03/13/2025 vitamin D2, ergocalciferol, (DRISDOL) 1.25 mg capsuleIndication s:Vitamin D deficiency TAKE 1 CAPSULE BY MOUTH EVERY 7 DAYS 12 capsule 025 Active indapamide (LOZOL) 2.5 MG tabletIndications :Essential hypertension TAKE 1 TABLET(2.5 MG) BY MOUTH TWICE DAILY 60 tablet 3 025 Active losartan (COZAAR) 50 MG tabletIndications :Essential hypertension TAKE 1 TABLET(50 MG) BY MOUTH DAILY 90 tablet 1 025 Active LORazepam (ATIVAN) 0.5 MG tabletIndications :Anxiety TAKE 1 TABLET BY MOUTH EVERY 8 HOURS NEEDED FOR ANXIETY 90 tablet 1 025 Active valACYclovir (VALTREX) 1 g tabletIndications :Cold sore TAKE 1 TABLET(1000 MG) BY MOUTH TWICE DAILY 8 tablet 1 025 Active acetaminophen (TYLENOL) 500 MG tabletIndications :Nausea & vomiting Take 2 tablets (1,000 mg total) by mouth every 6 (six) hours as needed for Pain. 30 tablet 025 2024 Active ondansetron (ZOFRAN-ODT) 4 MG disintegrating tablet Take 1 tablet (4 mg total) by mouth every 8 (eight) hours as needed for Nausea. 20 tablet Active albuterol sulfate HFA 108 (90 Base) MCG/ACT inhaler Inhale 2 puffs into the lungs every 6 (six) hours as needed. Active omeprazole (PRILOSEC) 40 MG capsule Take 1 capsule (40 mg total) by mouth 2 (two) times daily. Active pramipexole (MIRAPEX) 0.25 MG tablet Take 1 tablet (0.25 mg total) by mouth 3 (three) times daily. 025 2024 Active fluticasone propionate (FLONASE) 50 MCG/ACT nasal sprayIndications: Dysfunction of right eustachian tube shake liquid and use 2 sprays in each nostril daily 48 g 023 2024 Discontinued(P t. elected to discontinue med) ondansetron (ZOFRAN-ODT) 4 MG disintegrating tabletIndications :Nausea Take 1 tablet (4 mg total) by mouth every 8 (eight) hours as needed for Nausea. 20 tablet 3 024 2024 Discontinued nitrofurantoin, macrocrystal-mono hydrate, (MACROBID) 100 MG capsuleIndication s:Dysuria,Frequen t urination Take 1 capsule (100 mg total) by mouth 2 (two) times daily for 7 days. 14 capsule 025 2024 sulfamethoxazole- trimethoprim (BACTRIM DS) 800-160 MG tabletIndications :Dysuria,Frequent urination Take 1 tablet by mouth 2 (two) times daily for 7 days. 14 tablet 025 2024 ibuprofen (MOTRIN) 400 MG tablet Take 1 tablet (400 mg total) by mouth every 6 (six) hours as needed for Pain. 30 tablet 025 2024 Discontinued(T herapy completed) Active Problems Problem Noted Date Diagnosed Date Flank pain 11/20/2022 Left upper quadrant abdominal pain 11/20/2022 Nausea 11/20/2022 Personal history of colonic polyps 11/16/2022 Overview (11/19/2022): Added automatically from request for surgery [id number] Family history of malignant neoplasm of gastrointestinal tract 11/16/2022 Overview (11/19/2022): Added automatically from request for surgery [id number] Folic acid deficiency 09/14/2022 History of Graves' [...] in adult 09/18/2021 Fibromyalgia 09/12/2021 Parkinson disease ([facility]) 06/10/2021 Overview (09/12/2021): Last Assessment [...] 05/01/2015 Overview (09/12/2021): Mitral regurgitation Pulmonary hypertension ([facility]) 015 Overview (09/12/2021): Pulmonary hypertension Snoring 05/01/2015 Overview (09/12/2021): Snoring Anemia 02/16/2013 Resolved Problems Problem Noted Date Diagnosed Date Resolved Date Finger mass, left 09/04/2022 07/01/2023 Finger injury, right, sequela 09/18/2021 07/01/2023 Swelling of finger joint of right hand 09/18/2021 07/01/2023 SOB (shortness of breath) 04/08/2018 Encounters Date Type Department Care Team Description 03/13/2025 11:20 AM CDT Office Visit [facility] Family & Internal Medicine [address] [phone] 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, 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, 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 Cough (Patient presenting to the office today for follow up chronic cough); ER F/U (Patient was seen last week at [facility] ER - she has a [...] both arms never just on side- ) 03/13/2025 Results Follow-Up [facility] [address] [address] Nicole Holt FNP URINALYSIS AUTO DIP 03/13/[address] [address] Nicole Holt FNP Information 03/13/2025 Travel 03/12/2025 Minefulhart Message Enc [facility] Internal [address] [address] Nicole Holt FNP Norovirus/ stomach Flu 03/08/2025 7:41 PM CDT - 03/09/2025 12:50 AM CDT Emergency [facility] [place] [address] Иван Malave MD Vomiting; Flu Like Symptoms; Ankle Pain; Syncope Discharge Disposition: Home or Self Care (Routine Discharge) 03/08/2025 Travel 03/02/[address] [address] Nicole Holt FNP Lab Results (Urine culture results faxed from [facility]uma ) 02/28/2025 9:40 AM CDT Allied Health/Nurse Visit [facility] Internal [address] [address] Nicole Holt FNP Allied Health Visit (UA/ cx) 02/28/2025 Travel 02/26/2025 - 02/26/2025 11:59 PM CDT Hospital Encounter [facility] [address] Discharge Disposition: Home or Self Care (Routine Discharge) 02/26/2025 Minefulhart Message [facility] Internal [address] [address] Nicole Holt FNP Bladder Infection 02/26/[address] [address] Nicole Holt FNP Lab Results ([place] lab results 02/21/25) 02/21/2025 Scan [facility] SRVCS Scanned, [facility] Lab (SCAN) 02/21/[address] [address] Nicole Holt FNP Information; Advice 02/19/[address] [address] Nicole Holt FNP Appointment Request 02/14/2025 Minefulhart Message Enc [address] [phone] Nicole Holt FNP Chronic cough 01/23/2025 Telephone [facility] Internal [address] [address] Nicole Holt FNP Radiology Results 01/22/[address] [address] Nicole Holt FNP Radiology Results 01/18/2025 Scan [facility] Scanned, [facility] Image (SCAN) 01/17/2025 Scan [facility] Scanned, [facility] Bone Density Report (SCAN) 01/16/2025 Scan [facility] Scanned, [facility] 12/29/2024 Telephone [facility] Internal [address] [phone] Nicole Holt FNP Radiology Results 12/29/2024 Travel 12/26/2024 MyChart Message Enc [facility] Internal [address] [phone] Nicole Holt FNP Still sick 12/21/2024 MyChart Message Enc [facility] Internal [place] [address] [place] [address] LevyPatti wrenpato KIANNA Sick 12/19/2024 Scan [facility] SR[facility]CS Scanned, [facility] Endoscopy (SCAN); Colonoscopy Report (SCAN); Pathology (SCAN) from Last 3 Months Immunizations Immunization Administration Dates Next Due Influenza (Generic) 09/11/2024,09/29/2019 [...] CDT Gender Identity Female 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 Sexual Orientation Straight 12/23/2021 9: 01 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 Last Filed Vital Signs Vital Sign Reading Time Taken Comments Blood Pressure 128/72 03/13/2025 11:51 AM CDT Pulse 76 03/13/2025 11:51 AM CDT Temperature 36.4 C (97.5 F) 03/13/2025 11:51 AM CDT Respiratory Rate 98 03/13/2025 11:51 AM CDT Oxygen Saturation 96% 03/08/2025 10:59 PM CDT Inhaled Oxygen Concentration - - Weight 92.8 kg (204 lb 8 oz) 03/13/2025 11:51 AM CDT Height 167.6 cm (5' 6 ) 03/13/2025 11:51 AM CDT Body Mass Index 33.01 03/13/2025 11:51 AM CDT Plan of Treatment Upcoming Encounters Date Type Department Care Team (Late st Contact Info) Description 09/20/2025 11:00 AM CDT Office Visit [facility] Family & Internal Medicine - [address] [phone] Nicole Holt, [address] [phone] Health Maintenance Due Date Last Done Comments Annual Physical 1968 COVID-19 Vaccine ( season) 2025 05/04/2022, 09/19/2021, 01/10/2021, Additional history exists Postponed from 07/30/2024 (Patient Refused) RSV Immunization or 60+ Years (1 - Risk 60-74 years 1-dose series) 03/13/2026 Postponed fro m 2024 (Patient Refused) Zoster Vaccines (1 of 2) 03/13/2026 Pos tponed from 2014 (Patient Refused) Mammogram Screening 10/20/2026 10/20/2024, 11/26/2023, 09/26/2022, Additional history exists DTaP, Tdap and Td Vaccines (3 - Td or Tdap) 11/14/2030 11/14/2020, 04/28/2008 Colorectal Cancer Screening Colonoscopy (10 Years) 12/19/2034 12/19/2024, 12/19/2024, 11/18/2022 Hepatitis C Completed 09/04/2022 Pneumococcal Vaccine: 50+ Years Completed 09/04/2022 PHQ-2 (Physician [place]) Completed 03/13/2025 Meningococcal B Vaccine Aged Out No l [...] 2:36 PM CDT Recent urinary tract infection URINE BACTERIA CULTURE STAT 11:15 PM CDT HC URINALYSIS AUTO W/O MICRO STAT 03/08/2025 11:15 PM CDT INFLUENZA A & B STAT 03/08/2025 9:18 PM CDT CORONAVIRUS (COVID 19) STAT 9:[address] ABD+PEL W CON STAT 03/08/2025 8:43 PM CDT XR KNEE RT 3V STAT 03/08/2025 8:36 PM CDT LACTIC ACID W REFLEX (SEPSIS) STAT 03/08/2025 8:25 PM CDT TSH W/REFLEX STAT 03/08/2025 8:25 PM CDT TROPONIN, QUANT STAT 03/08/2025 8:25 PM CDT MAGNESIUM STAT 03/08/2025 8:25 PM CDT LIPASE STAT 03/08/2025 8:25 PM CDT COMPREHENSIVE METABOLIC PANEL STAT 03/08/2025 8:25 PM CDT CBC W/DIFF AUTOMATED STAT 03/08/2025 8:25 PM CDT CBC W/DIFF AUTOMATED Routine 03/08/2025 8:24 PM CDT ECG 12-LEAD Routine 03/08/2025 8:04 PM CDT XR CHEST PORTABLE STAT 03/08/2025 8:0 0 PM CDT XR ANKLE RT M3V STAT 03/08/2025 8:00 PM CDT URINE BACTERIA CULTURE Routine 11:10 AM CDT Dysuria Frequent urination URINALYSIS, [...] XR CHEST PA+LAT Routine 12/29/2024 11:09 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 GLUCOSE (U) NEGATIVE NEGATIVE MG/DL [facility] BILIRUBIN (U) NEGATIVE NEGATIVE [facility] KETONES MG/DL (U) NEGATIVE NEGATIVE MG/DL [facility] SPECIFIC GRAVITY (U) 1.015 1.001 - 1.035 [facility] BLOOD (U) NEGATIVE NEGATIVE [facility] U PH 7.0 5.0 - 9.0 [facility] PROTEIN (U) NEGATIVE NEGATIVE mg/dL [facility] UROBILINOGEN 0.2 0.2 - 1.0 EU/dL = mg/dL [facility] NITRITES NEGATIVE NEGATIVE MG/DL [facility] LEUKOCYTES (U) NEGATIVE NEGATIVE [facility] URINE SPECIMEN OBTAINED BY CLEAN CATCH PROCEDURE / Unknown 03/13/2025 12:36 PM CDT us Nicole HWANGP URINE ORDERABLES Final Result [facility] [address] [place] [address], * (ABNORMAL) URINALYSIS (03/08/2025 11:15 PM CDT) Only the most recent of2 resultswithin the time period is included. SPECIMEN TYPE URINE CLEAN CATCH 03/08/2025 11:13 PM CDT [facility] COLOR (U) LIGHT YELLOW 03/08/2025 11:50 PM CDT [facility] TRANSPARENCY CLEAR 03/08/2025 11:50 PM CDT [facility] SPECIFIC GRAVITY (U) >1.050(H) 1.001 - 1.030 03/08/2025 11:50 PM CDT [facility] U PH 5.5 5.0 - 9.0 03/08/2025 11:50 PM CDT [facility] LEUKOCYTES (U) NEGATIVE NEGATIVE 03/08/2025 11:50 PM CDT [facility] NITRITES NEGATIVE NEGATIVE 03/08/2025 11:50 PM CDT [facility] PROTEIN RANDOM (U) 10 <30 MG/DL 03/08/2025 11:50 PM CDT [facility] GLUCOSE (U) NORMAL NORMAL MG/DL 03/08/2025 11:50 PM CDT [facility] KETONES MG/DL (U) 150(A) NEGATIVE MG/DL 03/08/2025 11:50 PM CDT [facility] UROBILINOGEN NORMAL NORMAL MG/DL 03/08/2025 11:50 PM CDT [facility] BILIRUBIN (U) NEGATIVE NEGATIVE MG/DL 03/08/2025 11:50 PM CDT [facility] BLOOD (U) NEGATIVE NEGATIVE 03/08/2025 11:50 PM CDT [facility] URINE SPECIMEN OBTAINED BY CLEAN CATCH PROCEDURE / Unknown 03/08/2025 11:15 PM CDT us Joy Gupta BEHAVIORAL PSYCHOLOGIST URINE ORDERABLES Final Result [facility] [address] [place] [address], * CULTURE URINE (03/08/2025 11:15 PM CDT) Only the most recent of2 resultswithin the time period is included. SPEC DESCRIPTION URINE CLEAN CATCH 03/08/2025 11:14 PM CDT [facility] SPECIAL REQUESTS NO SPECIAL REQUEST 03/08/2025 11:14 PM CDT [facility] CULTURE RESULT POLYMICROBIAL GROWTH CONSISTENT WITH NORMAL GENITAL ANISHA. SUSCEPTIBILITIES NOT ROUTINELY PERFORMED. 03/10/2025 11:11 AM CDT [facility] URINE SPECIMEN OBTAINED BY CLEAN CATCH PROCEDURE / Unknown 03/08/2025 11:15 PM CDT 03/08/2025 11:30 PM CDT Joy Gupta NP MICROBIOLOGY - GENERAL ORDERAB LES Final Result [facility] [address] [place] [address], * CORONAVIRUS (COVID 19) (03/08/2025 9:18 PM CDT) [facility] CORONAVIRUS SARS COV 2 RNA NEGATIVE NEGATIVE 03/08/2025 10:25 PM CDT [facility] Comment: NEGATIVE RESULTS DO NOT RULE OUT COVID 19 AND SHOULD NOT BE USED THE SOLE BASIS FOR TREATMENT OR PATIENT MANAGEMENT DECISIONS, INCLUDING INFECTION CONTROL DECISIONS. NEGATIVE RESULTS SHOULD BE CONSIDERED IN THE CONTEXT OF A PATIENT'S RECENT EXPOSURES, HISTORY AND THE PRESENCE OF CLINICAL SIGNS AND SYMPTOMS CONSISTENT WITH COVID 19. THE ID NOW COVID-19 2.0 TEST HAS BEEN AUTHORIZED BY THE FDA UNDER EAU FOR USE BY AUTHORIZED LABORATORIES. PERFORMED BY NUCLEIC ACID AMPLIFICATION FOR MOLECULAR QUALITATIVE DETECTION OF SARS-COV-2. SPECIMEN TYPE NASAL 03/08/2025 9:18 PM CDT [facility] NASAL STRUCTURE / Unknown 03/08/2025 9:18 PM CDT Joy Gupta NP MICROBIOLOGY - GENERAL ORDERAB LES Final Result Performing Organization Address City/[facility]/ZIP Co de Phone Number [facility] [address] [place] [id number], [place] [phone] * INFLUENZA A & B (03/08/2025 9:18 PM CDT) SPECIMEN TYPE NASAL 03/08/2025 9:35 PM CDT [facility] INFLUENZA A NEGATIVE NEGATIVE 03/08/2025 10:25 PM CDT [facility] INFLUENZA B NEGATIVE NEGATIVE 03/08/2025 10:25 PM CDT [facility] Comment: Interpretation: Negative for Influenza A and B. A negative result does not exclude influenza virus infection. If influenza is circulating in your community, a diagnosis of influenza should be considered based on a patient's clinical presentation and empiric antiviral treatment should be considered, if indicated. If more conclusive testing is needed for hospitalized inpatients, follow-up confirmatory testing with RT-PCR requires a separate order. NASAL STRUCTURE / Unknown 03/08/2025 9:18 PM CDT Joy Gupta NP MICROBIOLOGY - GENERAL ORDERAB LES Final Result Performing Organization Address [facility] Co de Phone Number [facility] [address] [place] [address], [place] [phone] * CT ABD+PEL W IV CON ONLY (03/08/2025 8:43 PM CDT) Anatomical Region Laterality Modality Abdomen Computed Tomogra phy 03/08/2025 8:56 PM CDT Impressions 03/08/2025 9:01 PM CDT IMPRESSION: 1. There are multiple scattered areas of probable enteritis. Mild inflammation of the distal small bowel. Potential segmental area of mild colitis involving the descending colon. Overall, these findings are nonspecific. Infection is possible but an inflammatory bowel disease such as Crohn's disease could also produce this appearance. 2. No evidence of perforation or abscess formation. 3. No bowel obstruction. Ordered By: JOY GUPTA Interpreted By: Cody Blanc DO, 03/08/2025 8:56 PM Narrative 03/08/2025 9:01 PM CDT [address] [address] EXAMINATION: CT abdomen/pelvis with contrast HISTORY: Abdominal pain with nausea and vomiting. COMPARISON: None. TECHNIQUE: Axial CT images of the abdomen and pelvis after the uneventful intravenous administration of 100 mL of Isovue-370 given through the right antecubital fossa. Sagittal and coronal reformatted image sets. A dose lowering technique was used for this procedure, which may include, but is not limited to, dose reduction technique, automated exposure control, the use of degenerative reconstruction, and ALARA/image gently techniques. FINDINGS: Lower chest: Mild dependent atelectasis within the lung bases. The heart is normally sized. Upper abdomen: The liver is normal in size and contour. No evidence of hepatic mass. There is no cholelithiasis. No evidence of acute cholecystitis. No biliary ductal dilatation. No acute-appearing pancreatic abnormalities. The spleen is normally sized. No evidence of splenic mass. No adrenal masses. Kidneys: The kidneys enhance symmetrically. No hydronephrosis or nephrolithiasis. No evidence of renal mass or inflammation. There is no urolithiasis. There are multiple phleboliths adjacent to the distal ureters bilaterally. Vascular: The abdominal aorta is normal caliber. No acute appearing vascular abnormalities. Bowel/mesentery: No ascites or free intraperitoneal air. There is no bowel obstruction. There is colonic diverticulosis without definite secondary evidence of acute diverticulitis. There are multiple scattered areas of probable enteritis. Mild inflammation of the distal small bowel. Potential segmental area of mild colitis involving the descending colon. Overall, these findings are nonspecific. Infection is possible but an inflammatory bowel disease such as Crohn's disease could also produce this appearance. No evidence of perforation or abscess formation. No herniated bowel loops. No acute appearing gastric abnormalities. Pelvis: There are numerous pelvic phleboliths. No free pelvic fluid. No bladder wall thickening. Small bilateral fat-containing inguinal hernias. Osseous: There are multi site degenerative changes throughout the spine and the pelvis. No acute osseous abnormalities are identified. Mild lumbar scoliosis. Other findings: None. Procedure Note Cody Blanc - 03/08/[address] [address] EXAMINATION: CT abdomen/pelvis with contrast HISTORY: Abdominal pain with nausea and vomiting. COMPARISON: None. TECHNIQUE: Axial CT images of the abdomen and pelvis after the uneventful intravenousadministration of 100 mL of Isovue-370 given through the right antecubitalfossa. Sagittal and coronal reformatted image sets. A dose lowering technique was used for this procedure, which may include,but is not limited to, dose reduction technique, automated exposurecontrol, the use of degenerative reconstruction, and ALARA/image gentlytechniques. FINDINGS: Lower chest: Mild dependent atelectasis within the lung bases. The heartis normally sized. Upper abdomen: The liver is normal in size and contour. No evidence ofhepatic mass. There is no cholelithiasis. No evidence of acutecholecystitis. No biliary ductal dilatation. No acute-appearing pancreaticabnormalities. The spleen is normally sized. No evidence of splenic mass.No adrenal masses. Kidneys: The kidneys enhance symmetrically. No hydronephrosis ornephrolithiasis. No evidence of renal mass or inflammation. There is nourolithiasis. There are multiple phleboliths adjacent to the distalureters bilaterally. Vascular: The abdominal aorta is normal caliber. No acute appearingvascular abnormalities. Bowel/mesentery: No ascites or free intraperitoneal air. There is no bowelobstruction. There is colonic diverticulosis without definite secondaryevidence of acute diverticulitis. There are multiple scattered areas ofprobable enteritis. Mild inflammation of the distal small bowel. Potentialsegmental area of mild colitis involving the descending colon. Overall,these findings are nonspecific. Infection is possible but an inflammatorybowel disease such as Crohn's disease could also produce this appearance.No evidence of perforation or abscess formation. No herniated bowel loops.No acute appearing gastric abnormalities. Pelvis: There are numerous pelvic phleboliths. No free pelvic fluid. Nobladder wall thickening. Small bilateral fat-containing inguinal hernias. Osseous: There are multi site degenerative changes throughout the spineand the pelvis. No acute osseous abnormalities are identified. Mild lumbarscoliosis. Other findings: None. IMPRESSION: 1. There are multiple scattered areas of probable enteritis. Mildinflammation of the distal small bowel. Potential segmental area of mildcolitis involving the descending colon. Overall, these findings arenonspecific. Infection is possible but an inflammatory bowel disease suchas Crohn's disease could also produce this appearance. 2. No evidence of perforation or abscess formation. 3. No bowel obstruction. Ordered By: JOY GUPTA Interpreted By: Cody Blanc DO, 03/08/2025 8:56 PM us Joy Gupta BEHAVIORAL PSYCHOLOGIST CT Final Result * XR KNEE RT 3V (03/08/2025 8:36 PM CDT) Anatomical Region Laterality Modality Knee Radiographic Phuong ging 03/08/2025 9:02 PM CDT Impressions 03/08/2025 9:02 PM CDT IMPRESSION: 1. No acute osseous abnormalities identified. 2. Moderate right knee osteoarthritis. Ordered By: ИВАН MALAVE Interpreted By: Cody Blanc DO, 03/08/2025 9:02 PM Narrative 03/08/2025 9:[address] [facility] [address] [place], [place] [address] EXAMINATION: XR KNEE RT 3V HISTORY: Syncope. Right knee pain. COMPARISON: None. TECHNIQUE: Multiple views of the right knee. FINDINGS: No visible acute fracture or dislocation. No evidence of osteolysis. Alignment is maintained. Moderate right knee osteoarthritis. No joint effusion. If the patient's symptoms persist or worsen over time, further evaluation with MRI would be recommended. Procedure Note Cody Blanc DO - 03/08/2025 [facility] [address] [place], [place] [address] EXAMINATION: XR KNEE RT 3V HISTORY: Syncope. Right knee pain. COMPARISON: None. TECHNIQUE: Multiple views of the right knee. FINDINGS: No visible acute fracture or dislocation. No evidence of osteolysis.Alignment is maintained. Moderate right knee osteoarthritis. No jointeffusion. If the patient's symptoms persist or worsen over time, furtherevaluation with MRI would be recommended. IMPRESSION: 1. No acute osseous abnormalities identified. 2. Moderate right knee osteoarthritis. Ordered By: ИВАН MALAVE Interpreted By: Cody Blanc DO, 03/08/2025 9:02 PM Иван Malave MD GENERAL IMAGING Final R esult * LACTIC ACID W REFLEX (SEPSIS) (03/08/2025 8:25 PM CDT) LACTIC ACID VENOUS 0.8 0.4 - 2.0 MMOL/L 03/08/2025 9:09 PM CDT [facility] 03/08/2025 8:25 PM CDT Joy Gupta NP LABORATORY Final Result [facility] [address] [place] [address], [place] [phone] * TSH W/REFLEX (03/08/2025 8:25 PM CDT) TSH 0.681 0.358 - 3.74 uIU/ML 03/08/2025 9:24 PM CDT [facility] Comment: HIGH DOSES OF BIOTIN MAY INTERFERE WITH THIS TEST RESULT. CORRELATION TO CLINICAL HISTORY AND PRESENTATION RECOMMENDED. FREE T4 NOT INDICATED 03/08/2025 8:25 PM CDT us Joy Shepherd Vick BEHAVIORAL PSYCHOLOGIST LABORATORY Final Result [facility] [address] [place] [address], [place] [phone] * (ABNORMAL) COMPREHENSIVE METABOLIC PANEL (03/08/2025 8:25 PM CDT) Only the most recent of2 resultswithin the time period is included. [facility] GLUCOSE 86 70 - 99 MG/DL 03/08/2025 9:24 PM CDT [facility] BUN 16 7 - 18 MG/DL 03/08/2025 9:24 PM CDT [facility] CREATININE S/P/B 0.70 0.55 - 1.02 MG/DL 03/08/2025 9:24 PM CDT [facility] SODIUM S/P/B 130(L) 136 - 145 MMOL/L 03/08/2025 9:24 PM CDT [facility] POTASSIUM S/P/B 3.3(L) 3.5 - 5.1 MMOL/L 03/08/2025 9:24 PM CDT [facility] Comment:SLIGHT HEMOLYSIS, RE SULT MAY BE AFFECTED. CHLORIDE S/P/B 95(L) 97 - 115 MMOL/L 03/08/2025 9:24 PM CDT [facility] CO2 22.7 21 - 32 MMOL/L 03/08/2025 9:24 PM CDT [facility] CALCIUM S/P/B 8.9 8.5 - 10.1 MG/DL 03/08/2025 9:24 PM CDT [facility] BILIRUBIN TOTAL S/P/B 1.2 0.2 - 1.2 MG/DL 03/08/2025 9:24 PM CDT [facility] Comment: THIS ASSAY IS NOT RECOMMENDED FOR PATIENTS UNDERGOING TREATMENT WITH ELTROMBOPAG DUE TO THE POTENTIAL FOR FALSELY ELEVATED RESULTS. TOTAL PROTEIN S/P/B 7.8 6.4 - 8.2 G/DL 03/08/2025 9:24 PM CDT [facility] ALBUMIN S/P/B 3.7 3.4 - 5.0 G/DL 03/08/2025 9:24 PM CDT [facility] AST 31 15 - 37 U/L 03/08/2025 9:24 PM CDT [facility] Comment:SLIGHT HEMOLYSIS, RE SULT MAY BE AFFECTED. ALT 29 14 - 55 U/L 03/08/2025 9:24 PM CDT [facility] ALKALINE PHOSPHATASE S/P/B 68 50 - 136 U/L 03/08/2025 9:24 PM CDT [facility] ANION GAP 12.3(H) 2 - 10 MMOL/L 03/08/2025 9:24 PM CDT [facility] BUN CREATININE RATIO 22.9 6 - 26 03/08/2025 9:24 PM CDT [facility] A/G RATIO 0.9(L) 1.0 - 2.0 RATIO 03/08/2025 9:24 PM T [facility] GFR ESTIMATE >90 >90 ML/MIN/1.7 3 M2 03/08/2025 9:24 PM CDT [facility] Comment: NOTE: eGFR is not calculated for patients <18 years of age or gender unknown. This is an estimated GFR calculation using the new CKD EPI creatinine equation without race and so does not require a correction factor for race. This estimated GFR should not be used for calculating drug doses. 03/08/2025 8:25 PM CDT us Joy Gupta NP LABORATORY Final Result [facility] [address] [place] [address], [place] [phone] * CBC W/DIFF AUTOMATED (03/08/2025 8:25 PM CDT) Only the most recent of3 resultswithin the time period is included. WBC DUPLICATE ORDER 4.8 - 10.8 x10'3/uL 03/08/2025 10:01 PM CDT [facility] Comment:CORRECTED ON 03/08 A T 2201: PREVIOUSLY REPORTED 8.82 RBC DUPLICATE ORDER 4.2 - 5.4 x10'6/uL 03/08/2025 10:01 PM CDT [facility] Comment:CORRECTED ON 03/08 A T 2201: PREVIOUSLY REPORTED 4.91 HGB DUPLICATE ORDER 12.0 - 16.0 G/DL 03/08/2025 10:01 PM CDT [facility] Comment:CORRECTED ON 03/08 A T 2201: PREVIOUSLY REPORTED 14.7 HCT DUPLICATE ORDER 37 - 47 % 03/08/2025 10:01 PM CDT [facility] Comment:CORRECTED ON 03/08 A T 2201: PREVIOUSLY REPORTED 42.9 MCV DUPLICATE ORDER 80 - 97 FL 03/08/2025 10:01 PM CDT [facility] Comment:CORRECTED ON 03/08 A T 2201: PREVIOUSLY REPORTED 87.4 MCH DUPLICATE ORDER 27 - 33 PG 03/08/2025 10:01 PM CDT [facility] Comment:CORRECTED ON 03/08 A T 2201: PREVIOUSLY REPORTED 29.9 MCHC DUPLICATE ORDER 32 - 35 G/DL 03/08/2025 10:01 PM CDT [facility] Comment:CORRECTED ON 03/08 A T 2201: PREVIOUSLY REPORTED 34.3 RDW DUPLICATE ORDER 11.5 - 14.5 % 03/08/2025 10:01 PM CDT [facility] Comment:CORRECTED ON 03/08 A T 2201: PREVIOUSLY REPORTED 12.8 PLT DUPLICATE ORDER 150 - 450 x10'3/uL 03/08/2025 10:01 PM CDT [facility] Comment:CORRECTED ON 03/08 A T 220: PREVIOUSLY REPORTED 258 MPV DUPLICATE ORDER 7.4 - 10.4 FL 03/08/2025 10:01 PM CDT [facility] Comment:CORRECTED ON 03/08 A T 2200: PREVIOUSLY REPORTED 10.4 DIFFERENTIAL TYPE DUPLICATE ORDER DIFFERENTIAL 03/08/2025 10:01 PM CDT [facility] 03/08/2025 8:25 PM CDT Joy Gupta BEHAVIORAL PSYCHOLOGIST LABORATORY Edited Result - Final Performing Organization Address [facility] Co de Phone Number [facility] [address] [place] [address], [place] [phone] * TROPONIN, QUANT (03/08/2025 8:25 PM CDT) TROPONIN I HIGH SENSITIVITY 4 <54 ng/L 03/08/2025 9:24 PM CDT [facility] Comment: HIGH DOSES OF BIOTIN, TROPONIN-SPECIFIC AUTOANTIBODIES, AND ANTIBODY THERAPY CONTAINING HAMA MAY INTERFERE WITH THIS TEST RESULT. CORRELATION TO CLINICAL HISTORY AND PRESENTATION RECOMMENDED. 03/08/2025 8:25 PM CDT Joy Gupta BEHAVIORAL PSYCHOLOGIST LABORATORY Final Result Performing Organization Address City/[facility]/ZIP Co de Phone Number [facility] [address] [place] [address], [place] [phone] * (ABNORMAL) MAGNESIUM (03/08/2025 8:25 PM CDT) Only the most recent of2 resultswithin the time period is included. MAGNESIUM 1.7(L) 1.8 - 2.4 MG/DL 03/08/2025 9:24 PM CDT [facility] Comment:SLIGHT HEMOLYSIS, RE SULT MAY BE AFFECTED. 03/08/2025 8:25 PM CDT Joy Gupta BEHAVIORAL PSYCHOLOGIST LABORATORY Final Result [facility] [address] [place] [address], [place] [phone] * LIPASE (03/08/2025 8:25 PM CDT) LIPASE 18 13 - 75 UNITS/L 03/08/2025 9:24 PM CDT [facility] 03/08/2025 8:25 PM CDT Joy Gupta BEHAVIORAL PSYCHOLOGIST LABORATORY Final Result Performing Organization Address City/[facility]/ZIP Co de Phone Number [facility] [address] [place] [address], [place] [phone] * ECG 12 lead (03/08/2025 8:04 PM CDT) 03/08/2025 8:04 PM CDT Narrative [facility] RAD - 03/08/2025 9:34 PM [address]T [address] Test Date: 2025-03-08 Pat Name: BIJAL MISAEL Department: 41 Room: [facility] Gender: Female Felt Hat Steamer: : 1965 Requested By: JOY GUPTA Order Number: [id number] Reading MD: Measurements Intervals [place] Rate: 102 P: 52 DE: 154 QRS: 14 QRSD: 102 T: 71 QT: 291 QTc: 379 Interpretive Statements SINUS TACHYCARDIA NONSPECIFIC T-WAVE ABNORMALITY ABNORMAL RHYTHM ECG Compared to ECG 02/13/2022 16:04:01 T-wave abnormality now present Sinus rhythm no longer present Ventricular premature complex(es) no longer present Other ischemic changes, not STEMI Preliminary EKG Interpretation by Иван Malave M.D. Procedure Note Sandra Garcia, - 03/08/[address] Test Date: 2025-03-08 Pat Name: BIJAL DOUGLAS Department: 41 Room: [facility] Gender: Female Felt Hat Steamer: : 1965 Requested By: JOY GUPTA Order Number: [id number] Reading MD: Measurements Intervals [place] Rate: 102 P: 52 DE: 154 QRS: 14 QRSD: 102 T: 71 QT: 291 QTc: 379 Interpretive Statements SINUS TACHYCARDIA NONSPECIFIC T-WAVE ABNORMALITY ABNORMAL RHYTHM ECG Compared to ECG 02/13/2022 16:04:01 T-wave abnormality now present Sinus rhythm no longer present Ventricular premature complex(es) no longer present Other ischemic changes, not STEMI Preliminary EKG Interpretation by Иван Malave M.D. us Joy Gupta BEHAVIORAL PSYCHOLOGIST ECG ORDERABLES Final Result [facility] RAD * XR CHEST PORTABLE (03/08/2025 8:00 PM CDT) Anatomical Region Laterality Modality Chest Fluoroscopy 03/08/2025 9:03 PM CDT Impressions 03/08/2025 9:03 PM CDT IMPRESSION: No acute findings. Ordered By: JOY GUPTA Interpreted By: Cody Blanc DO, 03/08/2025 9:03 PM Narrative 03/08/2025 9:03 PM [address]T [address] [address] EXAMINATION: XR CHEST PORTABLE HISTORY: Syncope. Shortness of breath. COMPARISON: Chest x-ray 12/29/2024. TECHNIQUE: Portable AP view chest. FINDINGS: The heart size and vascular markings appear within normal limits. There is no mediastinal shift. No evidence of pneumonia, pleural effusion, or pneumothorax. There are small benign calcified nodules and lymph nodes. No visible acute findings. There is atherosclerotic calcification of the aorta. Procedure Note Cody Blanc DO - 03/08/2025 [place] [id number] EXAMINATION: XR CHEST PORTABLE HISTORY: Syncope. Shortness of breath. COMPARISON: Chest x-ray 12/29/2024. TECHNIQUE: Portable AP view chest. FINDINGS: The heart size and vascular markings appear within normal limits. There isno mediastinal shift. No evidence of pneumonia, pleural effusion, orpneumothorax. There are small benign calcified nodules and lymph nodes. Novisible acute findings. There is atherosclerotic calcification of theaorta. IMPRESSION: No acute findings. Ordered By: JOY GUPTA Interpreted By: Cody Blanc DO, 03/08/2025 9:03 PM Joy Gupta BEHAVIORAL PSYCHOLOGIST GENERAL IMAGING Final Result * XR ANKLE RT M3V (03/08/2025 8:00 PM CDT) Anatomical Region Laterality Modality Ankle Radiographic Phuong ging 03/08/2025 9:04 PM CDT Impressions 03/08/2025 9:04 PM CDT IMPRESSION: No acute osseous abnormalities identified. Ordered By: JOY GUPTA Interpreted By: Cody Blanc DO, 03/08/2025 9:04 PM Narrative 03/08/2025 9:[address] [facility] [address] [place], [place] [address] EXAMINATION: XR ANKLE RT M3V HISTORY: Syncope. Right ankle pain. COMPARISON: None. TECHNIQUE: Multiple views of the right ankle. FINDINGS: No visible acute fracture or dislocation. Alignment appears maintained. The ankle mortise and talar dome appear intact. If the patient's symptoms persist or worsen over time, further evaluation with MRI would be recommended. There is a small plantar calcaneal spur. Procedure Note Cody Blanc DO - 03/08/[address] [address] EXAMINATION: XR ANKLE RT M3V HISTORY: Syncope. Right ankle pain. COMPARISON: None. TECHNIQUE: Multiple views of the right ankle. FINDINGS: No visible acute fracture or dislocation. Alignment appears maintained.The ankle mortise and talar dome appear intact. If the patient's symptomspersist or worsen over time, further evaluation with MRI would berecommended. There is a small plantar calcaneal spur. IMPRESSION: No acute osseous abnormalities identified. Ordered By: JOY GUPTA Interpreted By: Cody Blanc DO, 03/08/2025 9:04 PM Joy Gupta BEHAVIORAL PSYCHOLOGIST GENERAL IMAGING Final Result * VITAMIN B12 / FOLATE (02/21/2025 12:00 AM CDT) 02/21/2025 us Nicole HUTCHISON LABORATORY Final Result Performing Organization Address [facility] Co de Phone Number [facility] ONS[facility]Control * URINALYSIS WI REFLEX TO CULTURE (02/21/2025 12:00 AM CDT) URINE SPECIMEN OBTAINED BY CLEAN CATCH PROCEDURE / Unknown 02/21/2025 us Nicole HUTCHISON URINE ORDERABLES Final Result Performing Organization Address City/[facility] Co de Phone Number [facility] * OUTSIDE LAB (SCAN ORDER) (02/21/2025) 02/21/2025 [facility] Scanned SCANNING Final Resu lt * IMAGE GENERIC (01/18/2025) Anatomical Region Laterality Modality Other 01/18/2025 us [facility] Scanned SCANNING Final Resu lt * BONE DENSITY GENERIC (SCAN ORDER) (01/17/2025) Anatomical Region Laterality Modality Other 01/17/2025 us [facility] Scanned SCANNING Final Resu lt * XR CHEST PA+LAT (12/29/2024 11:09 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) Anatomical Region Laterality Modality Chest Radiographic Phuong ging 12/29/2024 11:2 5 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 Impressions 12/29/2024 11:26 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 IMPRESSION: No radiographic evidence of active chest disease. Ordered By: NICOLE HOLT Interpreted By: Thaddeus Palma MD, 12/29/2024 11:25 AM Narrative 12/29/2024 11:26 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 [facility] [place] [id number] Examination: XR CHEST PA+LAT Exam time: 12/29/2024 11:05 AM Clinical history: Cough. Congestion. Comparison: No prior exam Technique: Upright PA and lateral views Findings: Excellent and pulmonary vasculature are within normal limits. Lungs appear clear. No evidence of pleural effusion. No evidence of bronchial wall thickening or abnormal pulmonary interstitium. Procedure Note Thaddeus Palma MD - 12/29/2024 [facility] [place] [id number] Examination: XR CHEST PA+LAT Exam time: 12/29/2024 [...] Thaddeus Palma MD, 12/29/2024 11:25 AM Result [facility] Nicole Holt 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 GENERAL IMAGING Final Result * PATHOLOGY GENERIC (SCAN ORDER) (12/19/2024) Only the most recent of2 resultswithin the time period is included. 12/19/2024 [facility] Scanned SCANNING Final Resu lt * ENDOSCOPY (SCAN ORDER) (12/19/2024) 12/19/2024 [facility] Scanned SCANNING Final Resu lt * ENDOSCOPY (SCAN ORDER) (12/19/2024) 12/19/2024 [facility] Scanned SCANNING Final Resu lt * COLONOSCOPY GENERIC (SCAN ORDER) (12/19/2024) 12/19/2024 [facility] Scanned SCANNING Final Resu lt * COLONOSCOPY GENERIC (SCAN ORDER) (12/19/2024) 12/19/2024 [facility] Scanned SCANNING Final Resu lt * MAMMOGRAM GENERIC (SCAN ORDER) (10/20/2024) Anatomical Region Laterality Modality Other 10/20/2024 [facility] Scanned SCANNING Final Resu lt * HEPATITIS C AB ([facility] ONLY) (09/04/2022 9:42 AM CDT) HEPATITIS C AB NON-REACTI VE NON-REACT VALENTIN 09/04/2022 6:29 PM CDT [facility] Comment: ANTIBODIES TO HCV NOT DETECTED. DOES NOT EXCLUDE THE POSSIBILITY OF EXPOSURE TO HCV. 09/04/2022 9:42 AM CDT Nicole HUTCHISON LABORATORY Final Result [facility] [address] [place] [address], [place] [phone] from Last 3 Months or Most Recently Relevant to Health Maintenance Insurance Care Teams Speed Reading Teacher Relationship Specialty Start Date End Date Nicole Holt FNP [address] [place] [address] PCP - General Nurse Practitioner Family 09/12/21
[2025-03-13 17:31] LABS: Basophils Percent Auto 0.4 % (0.2-1.2); Eosinophils Absolute Auto 0.1 K/mm3 (0-0.3); Eosinophils Percent Auto 1.2 % (0-4.4); Hematocrit 40.6 % (37.0-47.0); Hemoglobin 13.1 g/dL (12.0-15.0); Immature Granulocyte Absolute 0.03 K/mm3 (0.00-0.031); Immature Granulocyte Percent A 0.4 % (0-0.5); Lymphocytes Absolute Auto 3.05 K/mm3 (0.9-3.2); Lymphocytes Percent Auto 42.1 % (18.3-44.2); Mean Corpuscular HGB Conc 32.3 g/dl (32-36); Mean Corpuscular Hemoglobin 29.3 pg (26-34); Mean Corpuscular Volume 90.8 fl (80-100); Mean Platelet Volume 9.8 fl (7.4-10.4); Monocytes Absolute Auto 0.5 K/mm3 (0.1-0.6); Monocytes Percent Auto 7.3 % (2.6-8.5); Neutrophils Absolute Auto 3.5 K/mm3 (1.3-6.7); Neutrophils Percent Auto 48.6 % (45.5-73.1); Platelet Count Result 313 k/mm3 (150-375); Red Blood Count 4.47 M/mm3 (4.2-5.4); White Blood Count 7.2 K/mm3 (4.5-10.0)
[2025-03-13 17:35] LABS: Add Urine Microscopic? YES; Appearance Urine Clear (Clear); Bacteria Urine None Seen /hpf; Bilirubin Urine Negative (Negative); Blood Urine Negative (Negative); Color Urine Yellow (Yellow); Glucose Urine UA Negative (Negative); Ketones Urine Negative (Negative); Leukocyte Esterase Ur Trace LEU/UL (Negative); Nitrate Urine Negative (Negative); Non Pathogenic Casts 0-2; Protein Urine Negative (Negative); RBC Urine 0-2 /hpf (0-2); Specific Grav Ur 1.015 (1.001-1.035); Squamous Epithelial Cell Urine None Seen /hpf (Few); Urobilinogen Urine 0.2 mg/dL (<2.0); WBC Urine 0-5 /hpf (0-3)
[2025-03-13 17:40] LABS: Alanine Aminotransferase 45 U/L (6-35); Albumin Level 4.1 g/dL (3.5-5.1); Alkaline Phosphatase 63 U/L (38-126); Anion Gap 7 mmol/L (4-12); Aspartate Amino Transferase 38 U/L (14-36); Bilirubin,Total 0.9 mg/dL (0.2-1.3); Blood Urea Nitrogen 12 mg/dL (7-17); Calcium 8.9 mg/dL (8.4-10.2); Carbon Dioxide 35 mmol/L (22-30); Chloride 95 mmol/L (98-107); Estimated Glomerular Filt Rate > 60; Glucose 111 mg/dL (65-110); Sodium 137 mmol/L (137-145)
== END 2025-03-13 16:47 | disposition home or self-care (01) ==
LOC: ANHLAB 16:48
PROVIDERS: PCP Nurse Practitioner Family; Visit Provider Nurse Practitioner Family
DX: E83.42 Hypomagnesemia (principal); E87.6 Hypokalemia; R50.9 Fever, unspecified; R11.2 Nausea with vomiting, unspecified; Z87.440 Personal history of urinary (tract) infections
CPT/HCPCS: 36415; 80053; 81001; 83735; 85025

== ENCOUNTER 2025-03-26 16:57 | Outpatient (CLI) | payer BC, SELFPAY ==
--- OUTSIDE RECORDS SUMMARY | 2025-03-26 18:29 | XMS_ITS | Encounter Summary ---
Author Organization [facility] Address [address] [place] [address] Care Team Providers Care Cylinder Die Machine Helper Name Role Phone Nancy Alvares Primary Care Provider [phone] Encounter Details Date Type Department Care Team (Late Contact Info) Description 11/09/2022 MyChart Message Enc [facility] Family & Internal Medicine [address] [address] Nancy Alvares FNP [facility] [place], [place] [phone] Bladder infection Social History Tobacco Use Types [...] CDT Gender Identity Female 12/23/2021 9:01 AM MEDICATION AID Sexual Orientation Straight 12/23/2021 9: 01 AM MEDICATION AID documented as of this encounter Plan of Treatment Upcoming Encounters Date Type Department Care Team (Late Contact Info) Description 09/20/2025 11:00 AM CDT Office Visit [facility] Family & Internal Medicine [facility] [address] [place] [address] Nancy Alvares FNP [address] [place] [address] documented as of this encounter Visit Diagnoses Not on filedocumented in this encounter Additional Health Concerns Infection Onset Date Last Indicated Resolved Time COVID-19 Rule Out 03/08/2025 03/08/2025 03/08/2025 10:26 PM CDT Respiratory Rule-Out 03/08/2025 03/08/2025 025 10:25 PM CDT Assessment Noted Time PHQ-9 Depression Total Score: 12 021 12:38 PM CDT documented as of this encounter Care Teams Cylinder Die Machine Helper Relationship Specialty Start Date End Date Nancy Alvares FNP [address] [place] [address] PCP - General Nurse Practitioner Family 09/12/21 documented as of this encounter
--- OUTSIDE RECORDS SUMMARY | 2025-03-26 18:29 | XMS_ITS | Encounter Summary ---
Author Organization [facility] Address [address] [place] [address] Care Team Providers Care Dye Jig Operator Name Role Phone Nancy Alvares Primary Care Provider [phone] Encounter Details Date Type Department Care Team (Late st Contact Info) Description 07/08/2023 Really Cheap Geekst Message Enc [facility] Family & Internal [address] [phone] Nancy Alvares FNP [address] [place] [phone] Copy of updated insurance card Social History [...] CDT Gender Identity Female 12/23/2021 9:01 AM ACETYLENE OPERATOR Sexual Orientation Straight 12/23/2021 9: 01 AM ACETYLENE OPERATOR documented as of this encounter Plan of Treatment Upcoming Encounters Date Type Department Care Team (Late Contact Info) Description 09/20/2025 11:00 AM CDT Office Visit [facility] Family & Internal [address] [phone] Nancy Alvares FNP [address] [place] [address] documented as of this encounter Visit Diagnoses Not on filedocumented in this encounter Additional Health Concerns Infection Onset Date Last Indicated Resolved Time COVID-19 Rule Out 03/08/2025 03/08/2025 03/08/2025 10:26 PM CDT Respiratory Rule-Out 03/08/2025 03/08/2025 025 10:25 PM CDT Assessment Noted Time PHQ-9 Depression Total Score: 12 021 12:38 PM CDT documented as of this encounter Care Teams Dye Jig Operator Relationship Specialty Start Date End Date Nancy Alvares FNP [address] [place] [address] PCP - General Nurse Practitioner Family 09/12/21 documented as of this encounter
--- OUTSIDE RECORDS SUMMARY | 2025-03-26 18:29 | XMS_ITS | Encounter Summary ---
Author Organization [facility] Address [address] [place] [address] Care Team Providers Care Post Form Remover Name Role Phone Nancy Alvares Primary Care Provider [phone] Encounter Details Date Type Department Care Team (Late st Contact Info) Description 03/16/2024 MyChart Message Enc [facility] Family & Internal Medicine [facility] [address] [place] [phone] Nancy Alvares FNP [facility] [place], [place] [phone] Rolled Ankle Social History Tobacco Use Types [...] CDT Gender Identity Female 12/23/2021 9:01 AM TANGLED YARN SPOOL STRAIGHTENER Sexual Orientation Straight 12/23/2021 9: 01 AM TANGLED YARN SPOOL STRAIGHTENER documented as of this encounter Functional Status [...] to go to walk in clinic in [place]. Opportunity given for all questions to be [...] Description 09/20/2025 11:00 AM CDT Office Visit [facility] Family & Internal Medicine - [place] [address] [place] [address] Nancy Alvares FNP [facility] [place] [address] documented as of this encounter Visit Diagnoses Not on filedocumented in this encounter Additional Health Concerns Infection Onset Date Last Indicated Resolved Time COVID-19 Rule Out 03/08/2025 03/08/2025 03/08/2025 10:26 PM CDT Respiratory Rule-Out 03/08/2025 03/08/202510/2 025 10:25 PM CDT Assessment Noted Time PHQ-9 Depression Total Score: 21 023 4:28 PM TANGLED YARN SPOOL STRAIGHTENER documented as of this encounter Care Teams Post Form Remover Relationship Specialty Start Date End Date Nancy Alvares FNP [facility] [place] [address] PCP - General Nurse Practitioner Family 09/12/21 documented as of this encounter
--- OUTSIDE RECORDS SUMMARY | 2025-03-26 18:29 | XMS_ITS | Encounter Summary ---
Author Organization [facility] Address [address] [place] [address] Phone Care Team Providers Care Commercial Lines Account Executive Name Role Phone Nancy Alvares NP Primary Care Provider [phone] Encounter Details Date Type Department Care Team [...] on file Legal Sex Female 9:09 PM PRESS AND BLOW MACHINE TENDER Gender Identity Not on file Sexual [...] on filedocumented in this encounter Care Teams Commercial Lines Account Executive Relationship Specialty Start Date End Date Nancy Alvares NP [address] [place] [address] PCP - General Nurse Practitioner 10/08/21 documented as of this encounter
--- OUTSIDE RECORDS SUMMARY | 2025-03-26 18:29 | XMS_ITS | Encounter Summary ---
Author Organization [facility] Address [address] [place] [address] Phone Care Team Providers Care Closet Organizer Name Role Phone Kiran Garvey MD Primary Care Provider + [phone] Kiran Garvey MD Primary Care Provider + [phone] Lorena Taylor MD Primary Care Provider + [phone] Dante Olivarez Primary Care Provider [phone] Morro Doyle MD Primary Care Provider [phone] Nancy Alvares NP Primary Care Provider [phone] Encounter Details Date Type Department Care Team (Latest Contact Info) Description 11/23/2006 Orders Only [facility] Scanning, Provider Social History Tobacco Use Types Packs/Day Years Used Date Smoking Tobacco: Never Assessed Comments Unknown Sex and Gender Information Value Date Recorded Sex Assigned at Not on file Legal Sex Female 9:09 PM ENTERTAINMENT DANCER Gender Identity Not on file Sexual Orientation [...] on filedocumented in this encounter Care Teams Closet Organizer Relationship Specialty Start Date End Date Malench, Kiran E., MD [address] [place] [address] PCP - General 02/26/17 01/25/19 Kiran Garvey MD [address] [place] [address] PCP - General 03/21/15 02/25/17 Lorena Taylor MD [address] [place] [address] PCP - General Family Practice 01/26/19 03/31/21 Dante Olivarez PA [address] [place] [address] PCP - General Physician Chief Strategy Officer 04/01/21 06/09/21 Morro Doyle MD [address] [facility] [address] [place] [address] PCP - General Internal Medicine 06/10/21 10/07/21 Nancy Alvares NP [address] [place] [phone] PCP - General Nurse Practitioner 10/08/21 documented as of this encounter
--- OUTSIDE RECORDS SUMMARY | 2025-03-26 18:29 | XMS_ITS | Encounter Summary ---
Author Organization [facility] Address [address] [place] [address] Phone Care Team Providers Care Truck Shop Mechanic Name Role Phone Kiran Garvey MD Primary Care Provider + [phone] Kiran Garvey MD Primary Care Provider + [phone] Lorena Taylor MD Primary Care Provider + [phone] Dante Olivarez Primary Care Provider [phone] Morro Doyle MD Primary Care Provider [phone] Nancy Alvares NP Primary Care Provider + [phone] Encounter Details Date Type Department Care Team (Latest Contact Info) Description 04/16/2006 Orders Only [facility] Scanning, Provider Social History Tobacco Use Types Packs/Day Years Used Date Smoking Tobacco: Never Assessed Comments Unknown Sex and Gender Information Value Date Recorded Sex Assigned at Not on file Legal Sex Female 9:09 PM REGISTERED DIETITIAN Gender Identity Not on file Sexual Orientation [...] on filedocumented in this encounter Care Teams Truck Shop Mechanic Relationship Specialty Start Date End Date Malench, Kiran E., MD [address] [place] [address] PCP - General 02/26/17 01/25/19 Kiran Garvey MD [address] [place] [address] PCP - General 03/21/15 02/25/17 Lorena Taylor MD [address] [place] [address] PCP - General Family Practice 01/26/19 03/31/21 Dante Olivarez PA [address] [place] [address] PCP - General Physician Missileman 04/01/21 06/09/21 Morro Doyle MD [address] [facility] [address] [place] [address] PCP - General Internal Medicine 06/10/21 10/07/21 Nancy Alvares NP [address] [place] [phone] PCP - General Nurse Practitioner 10/08/21 documented as of this encounter
--- OUTSIDE RECORDS SUMMARY | 2025-03-26 18:29 | XMS_ITS | Encounter Summary ---
Author Organization [facility] Address [address] [place] [address] Care Team Providers Care Director Council On Aging Name Role Phone Nancy Alvares Primary Care Provider [phone] Encounter Details Date Type Department Care Team (Latest Contact Info) Description 09/22/2022 MyChart Message Enc [facility] Family & Internal Medicine [facility] [address] [place] [address] Nancy Alvares FNP [address] [place], [place] [phone] Information Coordinator Referral Social History Tobacco Use Types [...] CDT Gender Identity Female 12/23/2021 9:01 AM HOP FARM WORKER Sexual Orientation Straight 12/23/2021 9: 01 AM HOP FARM WORKER COVID-19 Exposure Response Date Recorded In the [...] Description 09/20/2025 11:00 AM CDT Office Visit [facility] Family & Internal Medicine - [place] [address] [place] [address] Nancy Alvares FNP [address] [place] [address] documented as of this encounter Visit Diagnoses Not on filedocumented in this encounter Additional Health Concerns Infection Onset Date Last Indicated Resolved Time COVID-19 Rule Out 03/08/2025 03/08/2025 03/08/2025 10:26 PM CDT Respiratory Rule-Out 03/08/2025 03/08/2025 025 10:25 PM CDT Assessment Noted Time PHQ-9 Depression Total Score: 12 021 12:38 PM CDT documented as of this encounter Care Teams Director Council On Aging Relationship Specialty Start Date End Date Nancy Alvares FNP [facility] [place] [address] PCP - General Nurse Practitioner Family 09/12/21 documented as of this encounter
--- OUTSIDE RECORDS SUMMARY | 2025-03-26 18:29 | XMS_ITS | Encounter Summary ---
Author Organization [facility] Address [address] [place] [address] Care Team Providers Care Senior Information Security Engineer Name Role Phone Nancy Alvares Primary Care Provider [phone] Encounter Details Date Type Department Care Team (Late st Contact Info) Description 07/13/2022 MyChart Message Enc [facility] Family & Internal Medicine [facility] [address] [place] [address] Nancy Alvares FNP [address] [place], [place] [id number] Lorazepam Social History Tobacco Use Types Packs/Day [...] CDT Gender Identity Female 12/23/2021 9:01 AM PATHOLOGY LABORATORY DIRECTOR Sexual Orientation Straight 12/23/2021 9: 01 AM PATHOLOGY LABORATORY DIRECTOR documented as of this encounter Progress Notes * Kiley Jimenes MA - 07/13/2022 5:14 PM CDTFrom: Bijal Kyle To: Nancy Alvares Sent: 07/13/2022 12:13 PM CDT Subject: Lorazepam I had [facility] submit for my refill on my Lorazapam 0.5 MG that I take one every 8 hours and have always received 90 tablets for the month. I went to shredder picker my refill on July 10 and it had the same instructions, but on was for 30 pills. Can you have Nancy send in an updated refill like the previous ones? Thank you, P kelsie Kyle documented in this encounter Plan of Treatment Upcoming Encounters Date Type Department Care Team (Late st Contact Info) Description 09/20/2025 11:00 AM CDT Office Visit [facility] Family & Internal Medicine - [address] [address] Nancy Alvares FNP [address] [place] [address] documented as of this encounter Visit Diagnoses Not on filedocumented in this encounter Additional Health Concerns Infection Onset Date Last Indicated Resolved Time COVID-19 Rule Out 03/08/2025 03/08/2025 03/08/2025 10:26 PM CDT Respiratory Rule-Out 03/08/2025 03/08/2025 025 10:25 PM CDT Assessment Noted Time PHQ-9 Depression Total Score: 12 021 12:38 PM CDT documented as of this encounter Care Teams Senior Information Security Engineer Relationship Specialty Start Date End Date Nancy Alvares FNP [address] [place] [address] PCP - General Nurse Practitioner Family 09/12/21 documented as of this encounter
--- OUTSIDE RECORDS SUMMARY | 2025-03-26 18:29 | XMS_ITS | Encounter Summary ---
Author Organization [facility] Address [address] [place] [address] Care Team Providers Care Abrasive Water Jet Cutter Operator Name Role Phone Nancy Alvares Primary Care Provider [phone] Encounter Details Date Type Department Care Team (Late st Contact Info) Description 02/18/2022 MyChart Message Enc [facility] Family & Internal Medicine [facility] [address] [place] [address] Nancy Alvares FNP [address] [place], [place] [phone] Bladder infection Social History Tobacco Use Types [...] CDT Gender Identity Female 12/23/2021 9:01 AM WOUND/OSTOMY NURSE Sexual Orientation Straight 12/23/2021 9: 01 AM WOUND/OSTOMY NURSE COVID-19 Exposure Response Date Recorded In the [...] 09/20/2025 11:00 AM CDT Office Visit [facility] Family & Internal Medicine - [address] [address] Nancy Alvares FNP [address] [place] [address] documented as of this encounter Visit Diagnoses Not on filedocumented in this encounter Additional Health Concerns Infection Onset Date Last Indicated Resolved Time COVID-19 Rule Out 03/08/2025 03/08/2025 03/08/2025 10:26 PM CDT Respiratory Rule-Out 03/08/2025 03/08/2025 025 10:25 PM CDT Assessment Noted Time PHQ-9 Depression Total Score: 12 021 12:38 PM CDT documented as of this encounter Care Teams Abrasive Water Jet Cutter Operator Relationship Specialty Start Date End Date Nancy Alvares FNP [address] [place] [address] PCP - General Nurse Practitioner Family 09/12/21 documented as of this encounter
--- OUTSIDE RECORDS SUMMARY | 2025-03-26 18:29 | XMS_ITS | Encounter Summary ---
Author Organization [facility] Address [address] [place] [address] Care Team Providers Care Elementary Science Teacher Name Role Phone Nancy Alvares Primary Care Provider [phone] Encounter Details Date Type Department Care Team (Late Contact Info) Description 09/20/2024 [place] Message Enc [facility] Family & Internal [address] [address] [place] Provider XR results Social History Tobacco [...] CDT Gender Identity Female 12/23/2021 9:01 AM VENUE MANAGER Sexual Orientation Straight 12/23/2021 9: 01 AM VENUE MANAGER documented as of this encounter Plan of Treatment Upcoming Encounters Date Type Department Care Team (Late Contact Info) Description 09/20/2025 11:00 AM CDT Office Visit [facility] Family & Internal [address] [address] Nancy Alvares FNP [address] [place] [address] [phone] documented as of this encounter Visit Diagnoses Not on filedocumented in this encounter Additional Health Concerns Infection Onset Date Last Indicated Resolved Time COVID-19 Rule Out 03/08/2025 03/08/2025 03/08/2025 10:26 PM CDT Respiratory Rule-Out 03/08/2025 03/08/2025 025 10:25 PM CDT Assessment Noted Time PHQ-9 Depression Total Score: 21 023 4:28 PM VENUE MANAGER documented as of this encounter Care Teams Elementary Science Teacher Relationship Specialty Start Date End Date Nancy Alvares FNP [address] [place] [address] PCP - General Nurse Practitioner Family 09/12/21 documented as of this encounter
--- OUTSIDE RECORDS SUMMARY | 2025-03-26 18:29 | XMS_ITS | Encounter Summary ---
Author Organization [facility] Address [address] [place] [address] Phone Care Team Providers Care Merchandise Stocker Name Role Phone Kiran Garvey MD Primary Care Provider + [phone] Kiran Garvey MD Primary Care Provider + [phone] Lorena Taylor MD Primary Care Provider + [phone] Dante Olivarez Primary Care Provider [phone] Morro Doyle MD Primary Care Provider [phone] Nancy Alvares NP Primary Care Provider + [phone] Encounter Details Date Type Department Care Team (Latest Contact Info) Description 02/27/2011 Orders Only [facility] Scanning, Provider Social History Tobacco Use Types Packs/Day Years Used Date Smoking Tobacco: Never Assessed Comments Unknown Sex and Gender Information Value Date Recorded Sex Assigned at Not on file Legal Sex Female 9:09 PM FRENCH CORD BINDER Gender Identity Not on file Sexual Orientation [...] on filedocumented in this encounter Care Teams Merchandise Stocker Relationship Specialty Start Date End Date Malench, Kiran E., MD [address] [place] [address] PCP - General 02/26/17 01/25/19 Kiran Garvey MD [address] [place] [address] PCP - General 03/21/15 02/25/17 Lorena Taylor MD [address] [place] [address] PCP - General Family Practice 01/26/19 03/31/21 Dante Olivarez PA [address] [place] [address] PCP - General Physician Mitochondrial Disorders Counselor 04/01/21 06/09/21 Morro Doyle MD [address] [facility] [address] [place] [address] PCP - General Internal Medicine 06/10/21 10/07/21 Nancy Alvares NP [address] [place] [address] [phone] PCP - General Nurse Practitioner 10/08/21 documented as of this encounter
--- OUTSIDE RECORDS SUMMARY | 2025-03-26 18:29 | XMS_ITS | Clinical Summary ---
Author Organization [facility] [address] Address [address] [place] [address] Care Team Providers Care Dining Room Supervisor Name Role Phone Nancy Alvares NP [...] (11/16/2022): Added automatically from request for surgery [id number] Family history of malignant neoplasm of gastrointestinal tract 11/16/2022 Overview (11/16/2022): Added automatically from request for surgery [id number] Parkinson disease 06/10/2021 Assessment & Plan (11/18/2021 4:42 PM ASSISTANT COUNSEL): Patient continues at this time on pramipexole [...] Department Care Team Description 02/28/2025 Orders Only [facility] Neurology [address] [place] [address] [address] [place] [address] Marlin Kirkland NP Paresthesia of skin 01/26/2025 4:00 PM ASSISTANT COUNSEL Office Visit [facility] Neurology [facility] [address] [place] [address] Marlin Kirkland NP Parkinson disease (HCC) (Primary Dx); Paresthesia of skin; Memory disturbance from Last 3 Months Surgical History Surgery [...] on file Legal Sex Female 9:09 PM ASSISTANT COUNSEL Gender Identity Not on file Sexual Orientation Not on file Obstetrics History Last Filed Vital Signs Vital Sign Reading Time Taken Comments Blood Pressure 119/79 01/26/2025 3:50 PM ASSISTANT COUNSEL Pulse 93 01/26/2025 3:50 PM ASSISTANT COUNSEL Temperature 36.3 C (97.3 F) 12/19/2024 9:15 AM ASSISTANT COUNSEL Respiratory Rate 20 01/26/2025 3:50 PM ASSISTANT COUNSEL Oxygen Saturation 97% 01/26/2025 3:50 PM ASSISTANT COUNSEL Inhaled Oxygen Concentration - - Weight 90.7 kg (200 lb) 01/26/2025 3:50 PM ASSISTANT COUNSEL Height 167.6 cm (5' 6 ) 01/26/2025 3:50 PM ASSISTANT COUNSEL Body Mass Index 32.28 01/26/2025 3:50 PM ASSISTANT COUNSEL Plan of Treatment Scheduled Procedures Name Priority Associated Diagnoses Date/Ti me COLONOSCOPY Colon cancer screening Health Maintenance Due Date Last Done Comments Breast Cancer Screening-Mammogram 1965 Depression Screening 1965 Hepatitis C Screening 1965 Hepatitis B Screening 1982 Regular Well Visit/Exam 18-64 1982 Zoster Vaccine (1 of 2) 2014 Covid-19 Vaccine ( - season) 2024 09/19/2021 DTaP/Tdap/Td Vaccine (3 [...] Associated Diagnosis Comments COLONOSCOPY 12/19/2024 8:53 AM ASSISTANT COUNSEL from Last 3 Months or Most Recently Relevant to Health Maintenance Results * Colonoscopy (12/19/2024 8:53 AM ASSISTANT COUNSEL) Anatomical Region Laterality Modality Other Narrative Procedure Note Catrachito Link MD - 12/19/2024 8:53 AM CST ENDOSCOPY LAB Patient Name: Bijal Kyle Procedure Date: 12/19/2024 8:53 AM Date of : 1965 Admit Type: Outpatient Age: 59 Gender: Female Attending MD: Catrachito Link M.D. Room: [facility] ENDOSCOPY ROOM 04 Note Status: Finalized [...] The scope was passed under direct vision.The [id number] was introduced through the anusand advanced to [...] ENDOSCOPY PROCEDURES Edite d Result - Final from Last 3 Months or Most Recently Relevant to Health Maintenance [place] [address] [place] [address] [place] Direct[place] For more information, please contact: [phone] * Full Code (Latest Code Status on File) Date Activated Date Inactivated Comments 12/19/2024 7:45 AM 12/19/2024 6:30 PM * Full Code Date Activated Date Inactivated Comments 11/18/2022 11:43 AM 11/18/2022 5:30 PM Care Teams Dining Room Supervisor Relationship Specialty Start Date End Date Nancy Alvares NP [address] [place] [address] PCP - General Nurse Practitioner 10/08/21
--- OUTSIDE RECORDS SUMMARY | 2025-03-26 18:29 | XMS_ITS | Encounter Summary ---
Author Organization [facility] Address [address] [place] [address] Phone Care Team Providers Care Pug Machine Operator Name Role Phone Lorena Taylor MD Primary Care Provider + [phone] Dante Olivarez Primary Care Provider [phone] Morro Doyle MD Primary Care Provider [phone] Nancy Alvares NP Primary Care Provider + [phone] Encounter Details Date Type Department Care Team [...] on file Legal Sex Female 9:09 PM RECEIVER DISPATCHER Gender Identity Not on file Sexual Orientation [...] on filedocumented in this encounter Care Teams Pug Machine Operator Relationship Specialty Start Date End Date Lorena Taylor MD PCP - General Family Practice 01/26/19 03/31/21 Dante Olivarez, ALVERTO [address] [place] [address] PCP - General Physician Blocker Heated Metal Forms 04/01/21 06/09/21 Morro Doyle MD [address] [facility] [address] [place] [address] PCP - General Internal Medicine 06/10/21 10/07/21 Nancy Alvares, RODRICK [facility] [place] [address] PCP - General Nurse Practitioner 10/08/21 documented as of this encounter
--- OUTSIDE RECORDS SUMMARY | 2025-03-26 18:29 | XMS_ITS | Encounter Summary ---
Author Organization [facility] Address [address] [place] [address] Care Team Providers Care Dispensing Operator Name Role Phone Nancy Alvares KIANNA Primary Care Provider [phone] Reason for Visit * Reason Comments Lab (SCAN) Encounter Details Date Type Department Care Team (Latest Contact Info) Description 03/13/2025 Scan HEALTH INFO [facility] Scanned, Doc Med Group Lab (SCAN) Social History Tobacco Use Types Packs/Day [...] CDT Gender Identity Female 12/23/2021 9:01 AM SALES REPRESENTATIVE PUBLICATIONS Sexual Orientation Straight 12/23/2021 9: 01 AM SALES REPRESENTATIVE PUBLICATIONS documented as of this encounter Functional Status * Over the past 2 weeks, how often have you been bothered by any of the following problems? Question Answer Date of Assessment Author Status Little interest or pleasure in doing things Not at all 03/13/2025 11:51 AM Radha Davis MA Active Feeling down, depressed, or hopeless Not at all 03/13/2025 11:51 AM Juan Davis MA Active Patient Health Questionnaire-2 Score 0 03/13/2025 11:51 AM Radha Davis MA Active documented as of this encounter Plan of Treatment Upcoming Encounters Date Type Department Care Team (Late st Contact Info) Description 09/20/2025 11:00 AM CDT Office Visit [facility] Medical Group Family & Internal Medicine - [place] [address] [place] [address] Nancy Alvares FNP [address] [place] [address] documented as of this encounter Procedures Procedure Name Priority Date/Time Associated Diagnosis Comments OUTSIDE LAB (SCAN ORDER) 03/13/2025 documented in this encounter Results * OUTSIDE LAB (SCAN ORDER) (03/13/2025) 03/13/2025 us Doc Med Group Scanned SCANNING Final Resu lt documented in this encounter Visit Diagnoses Not on filedocumented in this encounter Additional Health Concerns Assessment Noted Time PHQ-9 Depression Total Score: 21 023 4:28 PM SALES REPRESENTATIVE PUBLICATIONS documented as of this encounter Care Teams Dispensing Operator Relationship Specialty Start Date End Date Nancy Alvares FNP [facility] [place] [address] PCP - General Nurse Practitioner Family 09/12/21 documented as of this encounter
--- OUTSIDE RECORDS SUMMARY | 2025-03-26 18:29 | XMS_ITS | Referral Summary ---
Author Organization [facility] [address] Address [address] [place] [address] Care Team Providers Care Manager Fleet Name Role Phone Nancy Alvares NP Primary Care Provider Encounters Date Type Department Care Team Description 02/28/2025 Orders Only [facility] Neurology [address] [place] [address] [address] [place] [address] Marlin Kirkland NP Paresthesia of skin 01/26/2025 4:00 PM WEB ANALYTICS DEVELOPER Office Visit [facility] Neurology [address] [place] [address] [address] [place] [address] Marlin Kirkland NP Parkinson disease (HCC) (Primary Dx); Paresthesia of skin; Memory disturbance from Last 3 Months Allergies No known [...] (11/16/2022): Added automatically from request for surgery [id number] Family history of malignant neoplasm of gastrointestinal tract 11/16/2022 Overview (11/16/2022): Added automatically from request for surgery [id number] Parkinson disease 06/10/2021 Assessment & Plan (11/18/2021 4:42 PM WEB ANALYTICS DEVELOPER): Patient continues at this time on pramipexole [...] on file Legal Sex Female 9:09 PM WEB ANALYTICS DEVELOPER Gender Identity Not on file Sexual Orientation Not on file Last Filed Vital Signs Vital Sign Reading Time Taken Comments Blood Pressure 119/79 01/26/2025 3:50 PM WEB ANALYTICS DEVELOPER Pulse 93 01/26/2025 3:50 PM WEB ANALYTICS DEVELOPER Temperature 36.3 C (97.3 F) 12/19/2024 9:15 AM WEB ANALYTICS DEVELOPER Respiratory Rate 20 01/26/2025 3:50 PM WEB ANALYTICS DEVELOPER Oxygen Saturation 97% 01/26/2025 3:50 PM WEB ANALYTICS DEVELOPER Inhaled Oxygen Concentration - - Weight 90.7 kg (200 lb) 01/26/2025 3:50 PM WEB ANALYTICS DEVELOPER Height 167.6 cm (5' 6 ) 01/26/2025 3:50 PM WEB ANALYTICS DEVELOPER Body Mass Index 32.28 01/26/2025 3:50 PM WEB ANALYTICS DEVELOPER Plan of Treatment Scheduled Procedures Name Priority Associated Diagnoses Date/Ti me COLONOSCOPY Colon cancer screening Procedures Procedure Name Priority Date/Time Associated Diagnosis Comments COLONOSCOPY 12/19/2024 8:53 AM WEB ANALYTICS DEVELOPER from Last 3 Months or Most Recently Relevant to Health Maintenance Results * Colonoscopy (12/19/2024 8:53 AM WEB ANALYTICS DEVELOPER) Anatomical Region Laterality Modality Other Narrative Procedure Note Catrachito Link MD - 12/19/2024 8:53 AM CST ENDOSCOPY LAB Patient Name: Bijal Kyle Procedure Date: 12/19/2024 8:53 AM Date of : 1965 Admit Type: Outpatient Age: 59 Gender: Female Attending MD: Catrachito Link M.D. Room: [facility] ENDOSCOPY ROOM 04 Note Status: Finalized Procedure: Colonoscopy Indications: Abdominal pain, FH colon cancer Providers: Catrachito Link M.D. Referring MD: Nancy Alvares, F.N.P. Medicines: Monitored Anesthesia Care Complications: No immediate [...] The scope was passed under direct vision.The [id number] was introduced through the anusand advanced to [...] Most Recently Relevant to Health Maintenance Insurance [employer] [place] [employer] [place] Advance Directives For more information, please contact: [phone] * Full Code (Latest Code Status on File) Date Activated Date Inactivated Comments 12/19/2024 7:45 AM 12/19/2024 6:30 PM * Full Code Date Activated Date Inactivated Comments 11/18/2022 11:43 AM 11/18/2022 5:30 PM Care Teams Manager Fleet Relationship Specialty Start Date End Date Nancy Alvares NP [address] [place] [address] PCP - General Nurse Practitioner 10/08/21
--- OUTSIDE RECORDS SUMMARY | 2025-03-26 18:29 | XMS_ITS | Encounter Summary ---
Author Organization [facility] Address [address] [place] [address] Care Team Providers Care Diver Tender Name Role Phone Nancy Alvares Primary Care Provider [phone] Encounter Details Date Type Department Care Team (Late st Contact Info) Description 03/13/2025 Results Follow-Up [facility] Family & Internal Medicine [facility] [address] [place] [address] Nancy Alvares FNP [facility] [place] [address] URINALYSIS AUTO DIP Social History Tobacco Use [...] CDT Gender Identity Female 12/23/2021 9:01 AM COMMUNITY ENGAGEMENT LEADER Sexual Orientation Straight 12/23/2021 9: 01 AM COMMUNITY ENGAGEMENT LEADER documented as of this encounter Functional Status [...] Medical Group Family & Internal Medicine - [address] [address] Nancy Alvares FNP [address] [place] [address] documented as of this encounter Visit Diagnoses Not on filedocumented in this encounter Additional Health Concerns Assessment Noted Time PHQ-9 Depression Total Score: 21 023 4:28 PM COMMUNITY ENGAGEMENT LEADER documented as of this encounter Care Teams Diver Tender Relationship Specialty Start Date End Date Nancy Alvares FNP [address] [place] [address] PCP - General Nurse Practitioner Family 09/12/21 documented as of this encounter
--- OUTSIDE RECORDS SUMMARY | 2025-03-26 18:29 | XMS_ITS | Encounter Summary ---
Author Organization [facility] Address [address] [place] [address] Phone Care Team Providers Care Senior Visual Designer Name Role Phone Kiran Gravey MD Primary Care Provider + [phone] Kiran Garvey MD Primary Care Provider + [phone] Lorena Taylor MD Primary Care Provider + [phone] Dante Olivarez Primary Care Provider [phone] Morro Doyle MD Primary Care Provider [phone] Nancy Alvares NP Primary Care Provider + [phone] Encounter Details Date Type Department Care Team (Latest Contact Info) Description 02/10/2007 Orders Only [facility] Scanning, Provider Social History Tobacco Use Types Packs/Day Years Used Date Smoking Tobacco: Never Assessed Comments Unknown Sex and Gender Information Value Date Recorded Sex Assigned at Not on file Legal Sex Female 9:09 PM CHANGE OVER Gender Identity Not on file Sexual Orientation [...] on filedocumented in this encounter Care Teams Senior Visual Designer Relationship Specialty Start Date End Date Malench, Kiran E., MD [address] [place] [address] PCP - General 02/26/17 01/25/19 Kiran Garvey MD [address] [place] [address] PCP - General 03/21/15 02/25/17 Lorena Taylor MD [address] [place] [address] PCP - General Family Practice 01/26/19 03/31/21 Dante Olivarez PA [address] [place] [address] PCP - General Physician Strap Making Machine Operator 04/01/21 06/09/21 Morro Doyle MD [address] [facility] [address] [place] [address] PCP - General Internal Medicine 06/10/21 10/07/21 Nancy Alvares NP [address] [place] [id number] PCP - General Nurse Practitioner 10/08/21 documented as of this encounter
--- OUTSIDE RECORDS SUMMARY | 2025-03-26 18:29 | XMS_ITS | Encounter Summary ---
Author Organization [facility] Address [address] [place] [address] Phone Care Team Providers Care Landscape Laborer Name Role Phone Kiran Garvey MD Primary Care Provider + [phone] Kiran Garvey MD Primary Care Provider + [phone] Lorena Taylor MD Primary Care Provider + [phone] Dante Olivarez Primary Care Provider [phone] Morro Doyle MD Primary Care Provider [phone] Nancy Alvares NP Primary Care Provider + [phone] Encounter Details Date Type Department Care Team (Latest Contact Info) Description 03/19/2015 Orders Only [facility] Scanning, Provider Social History Tobacco Use Types Packs/Day Years Used Date Smoking Tobacco: Never Assessed Comments Unknown Sex and Gender Information Value Date Recorded Sex Assigned at Not on file Legal Sex Female 9:09 PM TONGUE STITCHER Gender Identity Not on file Sexual Orientation [...] filedocumented in this encounter Care Teams Landscape Laborer Relationship Specialty Start Date End Date Kiran Garvey MD [address] [place] [address] PCP - General 02/26/17 01/25/19 Kiran Garvey MD [address] [place] [address] PCP - General 03/21/15 02/25/17 Lorena Taylor MD [address] [place] [address] PCP - General Family Practice 01/26/19 03/31/21 Dante Olivarez, PA [address] [place] [address] PCP - General Physician Cat Scan Tech 04/01/21 06/09/21 Morro Doyle MD [address] [facility] [address] [place] [address] PCP - General Internal Medicine 06/10/21 10/07/21 Nancy Alvares FILTER TIP CATCHER [address] [place] [address] PCP - General Nurse Practitioner 10/08/21 documented as of this encounter
--- OUTSIDE RECORDS SUMMARY | 2025-03-26 18:29 | XMS_ITS | Encounter Summary ---
Author Organization [facility] Address [address] [place] [address] Care Team Providers Care Clinic Physician Name Role Phone Nancy Alvares Primary Care Provider [phone] Encounter Details Date Type Department Care Team (Late st Contact Info) Description 11/26/2023 MyChart Message Enc [facility] Family & Internal Medicine [facility] [address] [place] [phone] Nancy Alvares FNP [facility] [place], [place] [id number] Coughing Social History Tobacco Use Types Packs/Day [...] CDT Gender Identity Female 12/23/2021 9:01 AM EDI CONSULTANT Sexual Orientation Straight 12/23/2021 9: 01 AM EDI CONSULTANT documented as of this encounter Progress Notes * KIANNA Denis - 11/26/2023 2:28 PM CST I will send it out but yes test for covid CONSULTANT documented in this encounter Plan of Treatment Upcoming Encounters Date Type Department Care Team (Late st Contact Info) Description 09/20/2025 11:00 AM CDT Office Visit [facility] Family & Internal Medicine - [place] [address] [place] [address] Nancy Alvares FNP [address] [place] [address] documented as of this encounter Visit Diagnoses Not on filedocumented in this encounter Additional Health Concerns Infection Onset Date Last Indicated Resolved Time COVID-19 Rule Out 03/08/2025 03/08/2025 03/08/2025 10:26 PM CDT Respiratory Rule-Out 03/08/2025 03/08/2025 025 10:25 PM CDT Assessment Noted Time PHQ-9 Depression Total Score: 21 023 4:28 PM EDI CONSULTANT documented as of this encounter Care Teams Clinic Physician Relationship Specialty Start Date End Date Nancy Alvares FNP [address] [place] [address] PCP - General Nurse Practitioner Family 09/12/21 documented as of this encounter
--- OUTSIDE RECORDS SUMMARY | 2025-03-26 18:29 | XMS_ITS | Encounter Summary ---
Author Organization [facility] Address [address] [place] [address] Phone Care Team Providers Care Beauty Parlor Cleaner Name Role Phone Kiran Garvey MD Primary Care Provider + [phone] Kiran Garvey MD Primary Care Provider + [phone] Lorena Taylor MD Primary Care Provider + [phone] Dante Olivarez Primary Care Provider [phone] Morro Doyle MD Primary Care Provider [phone] Nancy Alvares NP Primary Care Provider + [phone] Encounter Details Date Type Department Care Team (Latest Contact Info) Description 11/10/2006 Orders Only [facility] Scanning, Provider Social History Tobacco Use Types Packs/Day Years Used Date Smoking Tobacco: Never Assessed Comments Unknown Sex and Gender Information Value Date Recorded Sex Assigned at Not on file Legal Sex Female 9:09 PM GROUNDWATER PROGRAMS DIRECTOR Gender Identity Not on file Sexual Orientation [...] on filedocumented in this encounter Care Teams Beauty Parlor Cleaner Relationship Specialty Start Date End Date Malench, Kiran E., MD [address] [place] [address] PCP - General 02/26/17 01/25/19 Kiran Garvey MD [address] [place] [address] PCP - General 03/21/15 02/25/17 Lorena Taylor MD [address] [place] [address] PCP - General Family Practice 01/26/19 03/31/21 Dante Olivarez PA [address] [place] [address] PCP - General Physician Bean Weigher 04/01/21 06/09/21 Morro Doyle MD [address] [facility] [address] [place] [address] PCP - General Internal Medicine 06/10/21 10/07/21 Nancy Alvares NP [address] [place] [id number] PCP - General Nurse Practitioner 10/08/21 documented as of this encounter
--- OUTSIDE RECORDS SUMMARY | 2025-03-26 18:29 | XMS_ITS | Continuity of Care Document ---
Author Organization [facility] Address [address] [place] [address] [address] [place] [address] Phone Care Team Providers Care Ocean Clam Boat Captain Name Role Phone Jin OD, Toby Unavailable Unavailable Procedures Procedure Date Office[facility]outpatient [facility] Advance Directives Directive Yes / No Effective Date File Name No Information Encounters Encounter Description Practice Location Reason(s) For Visit Diagnoses Date Provider Providers Copied on Encounter Office/outpat ient Visit, [facility], [address], [place], [place], [id number], [place] tel:[phone] [facility] No Information 2-201 0 Jin OD [place]. [address] , [address], [place], [address], [place]. tel:[phone] Family History Family Member Type Diagnosis Age [...]
--- OUTSIDE RECORDS SUMMARY | 2025-03-26 18:29 | XMS_ITS | Encounter Summary ---
Author Organization [facility] Address [address] [place] [address] Phone Care Team Providers Care Ship Superintendent Name Role Phone Kiran Garvey MD Primary Care Provider + [phone] Kiran Garvey MD Primary Care Provider + [phone] Lorena Taylor MD Primary Care Provider + [phone] Dante Olivarez Primary Care Provider [phone] Morro Doyle MD Primary Care Provider [phone] Nancy Alvares NP Primary Care Provider + [phone] Encounter Details Date Type Department Care Team (Latest Contact Info) Description 04/13/2005 Orders Only [facility] Scanning, Provider Social History Tobacco Use Types Packs/Day Years Used Date Smoking Tobacco: Never Assessed Comments Unknown Sex and Gender Information Value Date Recorded Sex Assigned at Not on file 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 Gender Identity Not on file Sexual [...] on filedocumented in this encounter Care Teams Ship Superintendent Relationship Specialty Start Date End Date Malench, Kiran E., MD [address] [place] [address] PCP - General 02/26/17 01/25/19 Kiran Garvey MD [address] [place] [address] PCP - General 03/21/15 02/25/17 Lorena Taylor MD [address] [place] [address] PCP - General Family Practice 01/26/19 03/31/21 Dante Olivarez PA [address] [place] [address] PCP - General Physician Belting And Webbing Inspector 04/01/21 06/09/21 Morro Doyle MD [address] [facility] [address] [place] [address] PCP - General Internal Medicine 06/10/21 10/07/21 Nancy Alvares NP [address] [place] [id number] PCP - General Nurse Practitioner 10/08/21 documented as of this encounter
--- OUTSIDE RECORDS SUMMARY | 2025-03-26 18:29 | XMS_ITS | Encounter Summary ---
Author Organization [facility] Address [address] [place] [address] Phone Care Team Providers Care Health And Wellness Instructor Name Role Phone Kiran Garvey MD Primary Care Provider + [phone] Kiran aGrvey MD Primary Care Provider + [phone] Lorena Taylor MD Primary Care Provider + [phone] Dante Olivarez Primary Care Provider [phone] Morro Doyle MD Primary Care Provider [phone] Nancy Alvares NP Primary Care Provider + [phone] Encounter Details Date Type Department Care Team (Latest Contact Info) Description 09/27/2009 Orders Only [facility] Scanning, Provider Social History Tobacco Use Types Packs/Day Years Used Date Smoking Tobacco: Never Assessed Comments Unknown Sex and Gender Information Value Date Recorded Sex Assigned at Not on file 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 Gender Identity Not on file Sexual [...] filedocumented in this encounter Care Teams Health And Wellness Instructor Relationship Specialty Start Date End Date Malench, Kiran E., MD [address] [place] [address] PCP - General 02/26/17 01/25/19 Kiran Garvey MD [address] [place] [address] PCP - General 03/21/15 02/25/17 Lorena Taylor MD [address] [place] [address] PCP - General Family Practice 01/26/19 03/31/21 Dante Olivarez PA [address] [place] [address] PCP - General Physician Stove Cleaner 04/01/21 06/09/21 Morro Doyle MD [address] [facility] [address] [place] [address] PCP - General Internal Medicine 06/10/21 10/07/21 Nancy Alvares NP [address] [place] [id number] PCP - General Nurse Practitioner 10/08/21 documented as of this encounter
--- OUTSIDE RECORDS SUMMARY | 2025-03-26 18:29 | XMS_ITS | Encounter Summary ---
Author Organization 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
--- OUTSIDE RECORDS SUMMARY | 2025-03-26 18:29 | XMS_ITS | Clinical Summary ---
Author Organization [facility] Address [address] [address] Care Team Providers Care Deli Clerk Name Role Phone Unavailable Primary Care Provider Unavailabl e Source Comments [facility],non-owned Affiliates and Associated Physician Practices is amultiple site organization consisting of ambulatory clinics and hospital sitesin [place], [place], [place] and [place]. This disclosure is being madepursuant to the Care Everywhere program and may not contain all information available regarding this patient. 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
--- OUTSIDE RECORDS SUMMARY | 2025-03-26 18:29 | XMS_ITS | Encounter Summary ---
Author Organization [facility] Address [address] [place] [address] Care Team Providers Care Veteran Appeals Reviewer Name Role Phone Nancy Alvares Primary Care Provider [phone] Encounter Details Date Type Department Care Team (Late st Contact Info) Description 03/16/2022 MyChart Message Enc [facility] Medical Group Family & Internal Medicine [facility] [address] [place] [address] Nancy Alvares FNP [address] [place], [place] [id number] Left knee severe pain Social History Tobacco [...] CDT Gender Identity Female 12/23/2021 9:01 AM MIGRATORY FARM HAND Sexual Orientation Straight 12/23/2021 9: 01 AM MIGRATORY FARM HAND COVID-19 Exposure Response Date Recorded In the [...] Description 09/20/2025 11:00 AM CDT Office Visit [facility] Family & Internal Medicine - [place] [address] [place] [address] Nancy Alvares FNP Formerly named [facility] [place] [address] documented as of this encounter Visit Diagnoses Not on filedocumented in this encounter Additional Health Concerns Infection Onset Date Last Indicated Resolved Time COVID-19 Rule Out 03/08/2025 03/08/2025 03/08/2025 10:26 PM CDT Respiratory Rule-Out 03/08/2025 03/08/2025 025 10:25 PM CDT Assessment Noted Time PHQ-9 Depression Total Score: 12 021 12:38 PM CDT documented as of this encounter Care Teams Veteran Appeals Reviewer Relationship Specialty Start Date End Date Nancy Alvares FNP [address] [place] [address] PCP - General Nurse Practitioner Family 09/12/21 documented as of this encounter
--- OUTSIDE RECORDS SUMMARY | 2025-03-26 18:29 | XMS_ITS | Encounter Summary ---
Author Organization [facility] Address [address] [place] [address] Phone Care Team Providers Care Palletizer Name Role Phone Kiran Garvey MD Primary Care Provider + [phone] Kiran Garvey MD Primary Care Provider + [phone] Lorena Taylor MD Primary Care Provider + [phone] Dante Olivarez Primary Care Provider [phone] Morro Doyle MD Primary Care Provider [phone] Nancy Alvares NP Primary Care Provider + [phone] Encounter Details Date Type Department Care Team (Latest Contact Info) Description 02/11/2004 Orders Only [facility] Scanning, Provider Social History Tobacco Use Types Packs/Day Years Used Date Smoking Tobacco: Never Assessed Comments Unknown Sex and Gender Information Value Date Recorded Sex Assigned at Not on file 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 Gender Identity Not on file Sexual Orientation [...] on filedocumented in this encounter Care Teams Palletizer Relationship Specialty Start Date End Date Malench, Kiran E., MD [address] [place] [address] PCP - General 02/26/17 01/25/19 Kiran Garvey MD [address] [place] [place] [address] PCP - General 03/21/15 02/25/17 Lorena Taylor MD [address] [place] [address] PCP - General Family Practice 01/26/19 03/31/21 Dante Olivarez PA [address] [place] [address] PCP - General Physician Cultural Historian 04/01/21 06/09/21 Morro Doyle MD [address] [facility] [address] [place] [address] PCP - General Internal Medicine 06/10/21 10/07/21 Nancy Alvares NP [address] [place] [id number] PCP - General Nurse Practitioner 10/08/21 documented as of this encounter
--- OUTSIDE RECORDS SUMMARY | 2025-03-26 18:29 | XMS_ITS | Encounter Summary ---
Author Organization [facility] Address [address] [facility] [place] [address] Care Team Providers Care Clerical Associate Name Role Phone Unavailable Primary Care Provider Unavailabl e Encounter Details Date Type Department Care Team (Late st Contact Info) Description 10/12/2024 Lab Requisition [facility] - DermPath Lab [address] [facility], [place] [address] Bharati Jason DO [address] [facility] [address] [place] [address] Social History Tobacco Use Types Packs/Day Years Used Date Smoking Tobacco: Never Assessed Comments Unknown Sex and Gender Information Value Date Recorded Sex Assigned at Not on file Legal Sex Female 6:37 AM PROFESSIONAL DEVELOPMENT MANAGER Gender Identity Not on file Sexual Orientation Not on file documented as of this encounter Plan of Treatment Not on file documented as of this encounter Procedures Procedure Name Priority Date/Time Associated Diagnosis Comments DERMATOPATHOLOGY Routine 10/12/2024 2:07 PM PROFESSIONAL DEVELOPMENT MANAGER documented in this encounter Results * DERMATOPATHOLOGY (10/12/2024 2:07 PM PROFESSIONAL DEVELOPMENT MANAGER) Case Report Dermatopathology Report Case: [id number] Authorizing Provider: Bharati Jason DO Collected: 10/12/2024 02:07 PM Ordering Location: [facility] Physician [facility] - Received: 10/13/2024 11:00 AM DermPath Lab Pathologist: Kerry Garcia MD Specimen: Skin, left medial cheek 4 12:27 PM PROFESSIONAL DEVELOPMENT MANAGER DERMATOPATHOLOGY LABORATORY Final Diagnosis Specimen A. SKIN, left medial cheek: ACTINIC KERATOSIS (L57.0) 4 12:27 PM PROFESSIONAL DEVELOPMENT MANAGER DERMATOPATHOLOGY LABORATORY Clinical History R/O BCC 4 12:27 PM [facility] DERMAT[facility] Gross Description Specimen A: Received is one formalin filled container labeled with the patient's name and designated left medial cheek. The specimen consists of a shave biopsy measuring 4x2x1 mm. Jar 0. 4 12:27 PM [facility] DERMATOPATH[facility]Y [facility] Microscopic Description Specimen A. SKIN, left medial cheek: There is focal parakeratosis. The lower half of the epidermis shows disorderly maturation of keratinocytes with nuclear pleomorphism. 4 12:27 PM [facility]ERMAT[facility]ATH[facility] Disclaimer An external and internal positive and negative controls are appropriate for the histochemical, immunohistochemical and immunofluorescence stain(s) in this case (if any), except where stated explicitly. The performance characteristics of the stain(s) cited in this report were developed and its performance characteristic determined by the Dermatopathology Laboratory at [facility], directed by Dr. Pebbles Leavitt. These tests need not be, and therefore are not, approved by the [place] Food and Drug Administration. The tests are used for clinical purposes. Billing Codes Specimen Charges Stain Charges 73230 1 4 12:27 PM [facility]MAT[facility] Embedded Images 4 12:27 PM [facility] Pathology/Cytolo gy TISSUE SPECIMEN FROM SKIN / Unknown 10/12/2024 2:07 PM PROFESSIONAL DEVELOPMENT MANAGER 10/13/2024 11:00 AM PROFESSIONAL DEVELOPMENT MANAGER us Bharati Jason DO LAB - PATHOLOGY/CYTOLOGY ORDERABLES Final Result DERMATOPATHOLOGY LABORATORY [facility] - Department of Dermatology [address], [address] [phone] documented in this encounter Visit Diagnoses Not on filedocumented in this encounter
--- OUTSIDE RECORDS SUMMARY | 2025-03-26 18:29 | XMS_ITS | Encounter Summary ---
Author Organization [facility] Address [address] [place] [address] Phone Care Team Providers Care Copying Machine Mechanic Name Role Phone Kiran Garvey MD Primary Care Provider + [phone] Kiran Garvey MD Primary Care Provider + [phone] Lorena Taylor MD Primary Care Provider + [phone] Dante Olivarez Primary Care Provider [phone] Morro Doyle MD Primary Care Provider [phone] Nancy Alvares NP Primary Care Provider + [phone] Encounter Details Date Type Department Care Team (Latest Contact Info) Description 10/26/2006 Orders Only [facility] Scanning, Provider Social History Tobacco Use Types Packs/Day Years Used Date Smoking Tobacco: Never Assessed Comments Unknown Sex and Gender Information Value Date Recorded Sex Assigned at Not on file Legal Sex Female 9:09 PM CARDROOM HAND Gender Identity Not on file Sexual Orientation [...] on filedocumented in this encounter Care Teams Copying Machine Mechanic Relationship Specialty Start Date End Date Malench, Kiran E., MD [address] [place] [address] PCP - General 02/26/17 01/25/19 Kiran Garvey MD [address] [place] [address] PCP - General 03/21/15 02/25/17 Lorena Taylor MD [address] [place] [address] PCP - General Family Practice 01/26/19 03/31/21 Dante Olivarez PA [address] [place] [address] PCP - General Physician Hot Mill Operator 04/01/21 06/09/21 Morro Doyle MD [address] [facility] [address] [place] [address] PCP - General Internal Medicine 06/10/21 10/07/21 Nancy Alavres NP [address] [place] [id number] PCP - General Nurse Practitioner 10/08/21 documented as of this encounter
--- OUTSIDE RECORDS SUMMARY | 2025-03-26 18:29 | XMS_ITS | Encounter Summary ---
Author Organization [facility] Address [address] [place] [address] Phone Care Team Providers Care Acid Leveler Name Role Phone Kiran Garvey MD Primary Care Provider + [phone] Kiran Garvey MD Primary Care Provider + [phone] Lorena Taylor MD Primary Care Provider + [phone] Dante Olivarez Primary Care Provider [phone] Morro oDyle MD Primary Care Provider [phone] Nancy Alvares NP Primary Care Provider + [phone] Encounter Details Date Type Department Care Team (Latest Contact Info) Description 02/27/2015 Orders Only [facility] Scanning, Provider Social History Tobacco Use Types Packs/Day Years Used Date Smoking Tobacco: Never Assessed Comments Unknown Sex and Gender Information Value Date Recorded Sex Assigned at Not on file Legal Sex Female 9:09 PM SOCIAL MEDIA MANAGER Gender Identity Not on file Sexual [...] on filedocumented in this encounter Care Teams Acid Leveler Relationship Specialty Start Date End Date Malench, Kiran E., MD [address] [place] [address] PCP - General 02/26/17 01/25/19 Kiran Garvey MD [address] [place] [address] PCP - General 03/21/15 02/25/17 Lorena Taylor MD [address] [place] [address] PCP - General Family Practice 01/26/19 03/31/21 Dante Olivarez PA [address] [place] [address] PCP - General Physician Secretary Specialist 04/01/21 06/09/21 Morro Doyle MD [address] [place] [address] [place] [address] PCP - General Internal Medicine 06/10/21 10/07/21 Nancy Alvares NP [address] [place] [id number] PCP - General Nurse Practitioner 10/08/21 documented as of this encounter
--- OUTSIDE RECORDS SUMMARY | 2025-03-26 18:29 | XMS_ITS | Encounter Summary ---
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
--- OUTSIDE RECORDS SUMMARY | 2025-03-26 18:29 | XMS_ITS | Encounter Summary ---
Author Organization [facility] Address [address] [place] [address] Care Team Providers Care Chronometer Tester Name Role Phone Nancy Alvares Primary Care Provider [phone] Encounter Details Date Type Department Care Team (Late st Contact Info) Description 08/13/2023 MyChart Message Enc [facility] Family & Internal Medicine [facility] [address] [place] [address] Nancy Alvares FNP [facility] [place], [place] [id number] Sick Social History Tobacco Use Types Packs/Day [...] CDT Gender Identity Female 12/23/2021 9:01 AM DIAMOND SAW OPERATOR Sexual Orientation Straight 12/23/2021 9: 01 AM DIAMOND SAW OPERATOR documented as of this encounter Progress [...] Description 09/20/2025 11:00 AM CDT Office Visit [facility] Family & Internal Medicine - [place] [address] [place] [address] Nancy Alvares FNP [address] [place] [address] documented as of this encounter Visit Diagnoses Not on filedocumented in this encounter Additional Health Concerns Infection Onset Date Last Indicated Resolved Time COVID-19 Rule Out 03/08/2025 03/08/2025 03/08/2025 10:26 PM CDT Respiratory Rule-Out 03/08/2025 03/08/2025 025 10:25 PM CDT Assessment Noted Time PHQ-9 Depression Total Score: 12 021 12:38 PM CDT documented as of this encounter Care Teams Chronometer Tester Relationship Specialty Start Date End Date Nancy Alvares FNP [facility] [place] [address] PCP - General Nurse Practitioner Family 09/12/21 documented as of this encounter
--- OUTSIDE RECORDS SUMMARY | 2025-03-26 18:30 | XMS_ITS | Encounter Summary ---
Author Organization [facility] Address [address] [place] [address] Care Team Providers Care Billing Control Clerk Name Role Phone Nancy Alvares Primary Care Provider [phone] Encounter Details Date Type Department Care Team (Late Contact Info) Description 12/24/2021 CopaCastt Message Enc [facility] Family & Internal Medicine [address] [address] [facility] Provider Appointment Reschedule Social History Tobacco [...] CDT Gender Identity Female 12/23/2021 9:01 AM APARTMENT ASSISTANT MANAGER Sexual Orientation Straight 12/23/2021 9: 01 AM APARTMENT ASSISTANT MANAGER documented as of this encounter Plan of Treatment Upcoming Encounters Date Type Department Care Team (Late Contact Info) Description 09/20/2025 11:00 AM CDT Office Visit [facility] Family & Internal Medicine [address] [phone] Nancy Alvares FNP [address] [place] [phone] documented as of this encounter Visit Diagnoses Not on filedocumented in this encounter Additional Health Concerns Infection Onset Date Last Indicated Resolved Time COVID-19 Confirmed 12/12/2021 12/12/2021 12:34 AM APARTMENT ASSISTANT MANAGER COVID-19 Rule Out 03/08/2025 03/08/2025 03/08/2025 10:26 PM CDT Respiratory Rule-Out 03/08/2025 03/08/2025 025 10:25 PM CDT Assessment Noted Time PHQ-9 Depression Total Score: 12 021 12:38 PM CDT documented as of this encounter Care Teams Billing Control Clerk Relationship Specialty Start Date End Date Nancy Alvares FNP [address] [place] [id number] PCP - General Nurse Practitioner Family 09/12/21 documented as of this encounter
--- OUTSIDE RECORDS SUMMARY | 2025-03-26 18:30 | XMS_ITS | Clinical Summary ---
Author Organization [facility] Address [facility] [place] [address] Care Team Providers Care Pastry Cook Apprentice Name Role Phone Nicole Holt KIANNA Primary Care Provider [phone] Allergies No known active allergies Medications Aspirin-Acetamino [...] TWICE DAILY 8 tablet 1 025 Active ondansetron (ZOFRAN-ODT) 4 MG disintegrating tablet Take 1 tablet (4 mg total) by mouth every 8 (eight) hours as needed for Nausea. 20 tablet 025 Active albuterol sulfate HFA 108 (90 Base) MCG/ACT inhaler Inhale 2 puffs into the lungs every 6 (six) hours as needed. Active omeprazole (PRILOSEC) 40 MG capsule Take 1 capsule (40 mg total) by mouth 2 (two) times daily. 025 Active pramipexole (MIRAPEX) 0.25 MG tablet Take 1 tablet (0.25 mg total) by mouth 3 (three) times daily. 025 2024 Active potassium chloride CR (KLOR-CON M) 10 MEQ tabletIndications :Hypokalemia TAKE 2 TABLETS(20 MEQ) BY MOUTH DAILY 180 tablet 025 Active fluticasone propionate (FLONASE) 50 MCG/ACT nasal [...] for 7 days. 14 tablet 025 2024 acetaminophen (TYLENOL) 500 MG tabletIndications :Nausea & vomiting Take 2 tablets (1,000 mg total) by mouth every 6 (six) hours as needed for Pain. 30 tablet 025 2024 ibuprofen (MOTRIN) 400 MG tablet Take 1 tablet (400 mg total) by mouth every 6 (six) hours as needed for Pain. 30 tablet 2024 Discontinued(T herapy completed) potassium chloride CR (KLOR-CON M) 10 MEQ tabletIndications :Hypokalemia Take 2 tablets (20 mEq total) by mouth daily. 60 tablet 025 2024 Discontinued Active Problems Problem Noted Date Diagnosed Date Flank pain 11/20/2022 Left upper quadrant abdominal pain 11/20/2022 Nausea 11/20/2022 Personal history of colonic polyps 11/16/2022 Overview (11/19/2022): Added automatically from request for surgery [id number] Family history of malignant neoplasm of gastrointestinal tract 11/16/2022 Overview (11/19/2022): Added automatically from request for surgery [id number] Folic acid deficiency 09/14/2022 History of Graves' [...] in adult 09/18/2021 Fibromyalgia 09/12/2021 Parkinson disease (CMS/HCC [facility]) 06/10/2021 Overview (09/12/2021): Last Assessment & Plan: [...] 05/01/2015 Overview (09/12/2021): Mitral regurgitation Pulmonary hypertension ([facility]) 015 Overview (09/12/2021): Pulmonary hypertension Snoring 05/01/2015 Overview (09/12/2021): Snoring Anemia 02/16/2013 Resolved Problems Problem Noted Date Diagnosed Date Resolved Date Finger mass, left 09/04/2022 07/01/2023 Finger injury, right, sequela 09/18/2021 07/01/2023 Swelling of finger joint of right hand 09/18/2021 07/01/2023 SOB (shortness of breath) 04/08/2018 Encounters Date Type Department Care Team Description 03/16/2025 Telephone [facility] Family & Internal [address] [phone] Nicole Holt FNP Lab Results 03/13/2025 11:20 AM CDT Office Visit [facility] [address] [phone] Nicole Holt FNP Cough (Patient presenting to the office today for follow up chronic cough); ER F/U (Patient was seen last week at [facility] ER - she has a syncopal episode [...] arms never just on side- ) 03/13/2025 Scan [employer] SRVCS Scanned, [facility] Lab (SCAN) 03/13/2025 Results Follow-Up [facility] Internal [address] [phone] Nicole Holt FNP URINALYSIS AUTO DIP 03/13/2025 Telephone [facility] Internal [address] [phone] Nicole Holt FNP Information 03/13/2025 Travel 03/12/2025 MyChart Message Enc [facility] [address] [phone] Nicole Holt FNP Norovirus/ stomach Flu 03/08/2025 7:41 PM CDT - 03/09/2025 12:50 AM CDT Emergency [facility] [place] [address] Иван Malave MD Vomiting; Flu Like Symptoms; Ankle Pain; Syncope Discharge Disposition: Home or Self Care (Routine Discharge) 03/08/2025 Travel 03/02/2025 Telephone [facility] Internal [address] [phone] Nicole Holt FNP Lab Results (Urine culture results faxed from alejandro ) 02/28/2025 9:40 AM CDT Allied Health/Nurse Visit [facility] [address] [phone] Nicole Holt FNP Allied Health Visit (UA/ cx) 02/28/2025 Travel 02/27/2025 Scan [employer] SRVCS Scanned, [facility] MRI (SCAN) 02/26/2025 - 02/26/2025 11:59 PM CDT Hospital Encounter [facility] [address] Discharge Disposition: Home or Self Care (Routine Discharge) 02/26/2025 MyChart Message Enc [facility] [address] [phone] Nicole Holt FNP Bladder Infection 02/26/2025 Telephone [facility] [address] [phone] Nicole Holt FNP Lab Results ([facility] lab results 02/21/25) 02/21/2025 Scan [employer] SRVCS Scanned, [facility] Lab (SCAN) 02/21/2025 Telephone [facility] [address] [phone] Nicole Holt FNP Information; Advice 02/19/2025 Telephone [facility] [address] [phone] Nicole Holt FNP Appointment Request 02/14/2025 PowerCloud Systemshart Message Enc [facility] & Internal [address] [phone] Nicole Holt FNP Chronic cough 01/23/[address] [phone] Nicole Holt FNP Radiology Results 01/22/[address] [phone] Nicole Holt FNP Radiology Results 01/18/2025 Scan [facility] SRVCS Scanned, [facility] Image (SCAN) 01/17/2025 Scan [facility] Scanned, [facility] Bone Density Report (SCAN) 01/16/2025 Scan [facility] Scanned, [facility] 12/29/[address] [phone] Nicole Holt FNP Radiology Results 12/29/2024 Travel 12/26/2024 PowerCloud Systemshart Message Enc [address] [phone] Nicole Holt FNP Still sick from Last 3 Months Immunizations Immunization Administration [...] CDT Gender Identity Female 12/23/2021 9:01 AM TAFFY PULLER Sexual Orientation Straight 12/23/2021 9: 01 AM TAFFY PULLER Last Filed Vital Signs Vital Sign Reading [...] Description 09/20/2025 11:00 AM CDT Office Visit [facility] Family & Internal Medicine - [address] [phone] Nicole Holt FNP [facility] [place] [address] Health Maintenance Due Date Last Done Comments [...] Vaccine: 50+ Years Completed 09/04/2022 PHQ-2 (Physician [place]) Completed 03/13/2025 Meningococcal B Vaccine Aged Out [...] 2:36 PM CDT Recent urinary tract infection OUTSIDE LAB (SCAN ORDER) 03/13/2025 URINE BACTERIA CULTURE STAT 11:15 PM CDT HC URINALYSIS AUTO W/O MICRO STAT 03/08/2025 11:15 PM CDT INFLUENZA A & B STAT 03/08/2025 9:18 PM CDT CORONAVIRUS (COVID 19) STAT 5 9:[address] ABD+PEL W CON [...] 02/28/2025 11:10 AM CDT Dysuria Frequent urination MRI GENERIC 02/27/2025 OUTSIDE LAB (SCAN ORDER) 02/21/2025 URINALYSIS WI [...] XR CHEST PA+LAT Routine 12/29/2024 11:09 AM TAFFY PULLER Chest tightness COLONOSCOPY GENERIC (SCAN ORDER) 12/19/2024 MAMMOGRAM GENERIC (SCAN ORDER) 10/20/2024 HEPATITIS C ANTIBODY Routine 09/04/2022 9:42 AM CDT Encounter for hepatitis C screening test for low risk patient from Last 3 Months or Most Recently Relevant to Health Maintenance Results * URINALYSIS AUTO DIP (03/13/2025 12:36 PM CDT) COLOR (U) PALE YELLOW YELLOW [facility] TRANSPARENCY CLEAR CLEAR [facility] GLUCOSE (U) NEGATIVE NEGATIVE MG/DL [facility] BILIRUBIN (U) NEGATIVE NEGATIVE [facility] KETONES MG/DL (U) NEGATIVE NEGATIVE MG/DL [facility] SPECIFIC GRAVITY (U) 1.015 1.001 - 1.035 [facility] BLOOD (U) NEGATIVE NEGATIVE [facility] U PH 7.0 5.0 - 9.0 [facility] PROTEIN (U) NEGATIVE NEGATIVE mg/dL [facility] UROBILINOGEN 0.2 0.2 - 1.0 EU/dL = mg/dL [facility] NITRITES NEGATIVE NEGATIVE MG/DL [facility] LEUKOCYTES (U) NEGATIVE NEGATIVE [facility] URINE SPECIMEN OBTAINED BY CLEAN CATCH PROCEDURE / Unknown 03/13/2025 12:36 PM CDT us Nicole HUTCHISON URINE ORDERABLES Final Result [facility] [address] [place] [address], * OUTSIDE LAB (SCAN ORDER) (03/13/2025) Only the most recent of2 resultswithin the time period is included. 03/13/2025 us [facility] Scanned SCANNING Final Resu lt * (ABNORMAL) URINALYSIS (03/08/2025 11:15 PM CDT) Only the most recent of2 resultswithin the time period is included. SPECIMEN TYPE URINE CLEAN CATCH 03/08/2025 11:13 PM CDT [facility] COLOR (U) LIGHT YELLOW 03/08/2025 11:50 PM CDT [facility] TRANSPARENCY CLEAR 03/08/2025 11:50 PM CDT [facility] SPECIFIC GRAVITY (U) >1.050(H) 1.001 - 1.030 03/08/2025 11:50 PM CDT [facility] U PH 5.5 5.0 - 9.0 03/08/2025 11:50 PM CDT [facility] LEUKOCYTES (U) NEGATIVE NEGATIVE 03/08/2025 11:50 PM CDT [facility] NITRITES NEGATIVE NEGATIVE 03/08/2025 11:50 PM CDT [facility] PROTEIN RANDOM (U) 10 <30 MG/DL 03/08/2025 11:50 PM CDT [facility] GLUCOSE (U) NORMAL NORMAL MG/DL 03/08/2025 11:50 PM CDT [facility] KETONES MG/DL (U) 150(A) NEGATIVE MG/DL 03/08/2025 11:50 PM CDT [facility] UROBILINOGEN NORMAL NORMAL MG/DL 03/08/2025 11:50 PM CDT [facility] BILIRUBIN (U) NEGATIVE NEGATIVE MG/DL 03/08/2025 11:50 PM CDT [facility] BLOOD (U) NEGATIVE NEGATIVE 03/08/2025 11:50 PM CDT [facility] URINE SPECIMEN OBTAINED BY CLEAN CATCH PROCEDURE / Unknown 03/08/2025 11:15 PM CDT Joy Gupta CATERING SERVER URINE ORDERABLES Final Result [facility] [address] [place] [address], [place] [phone] * CULTURE URINE (03/08/2025 11:15 PM CDT) Only the most recent of2 resultswithin the time period is included. SPEC DESCRIPTION URINE CLEAN CATCH 03/08/2025 11:14 PM CDT [facility] SPECIAL REQUESTS NO SPECIAL REQUEST 03/08/2025 11:14 PM CDT [facility] CULTURE RESULT POLYMICROBIAL GROWTH CONSISTENT WITH NORMAL GENITAL ANISHA. SUSCEPTIBILITIES NOT ROUTINELY PERFORMED. 03/10/2025 11:11 AM CDT [facility] URINE SPECIMEN OBTAINED BY CLEAN CATCH PROCEDURE / Unknown 03/08/2025 11:15 PM CDT 03/08/2025 11:30 PM CDT us Joy Gupta CATERING SERVER MICROBIOLOGY - GENERAL ORDERAB LES Final Result [facility] [address] [place] [address], [place] [phone] * CORONAVIRUS (COVID 19) (03/08/2025 9:18 PM CDT) CORONAVIRUS SARS COV 2 RNA NEGATIVE NEGATIVE 03/08/2025 10:25 PM CDT [facility] Comment: NEGATIVE RESULTS DO NOT RULE [...] SPECIMEN TYPE NASAL 03/08/2025 9:18 PM CDT [facility] NASAL STRUCTURE / Unknown 03/08/2025 9:18 PM CDT Joy Gupta NP MICROBIOLOGY - GENERAL ORDERAB LES Final Result Performing Organization Address City/[facility]/ZIP Co de Phone Number [facility] [address] [place], [place] [address], * INFLUENZA A & B (03/08/2025 9:18 PM CDT) SPECIMEN TYPE NASAL 03/08/2025 9:35 PM CDT [facility] INFLUENZA A NEGATIVE NEGATIVE 03/08/2025 10:25 PM CDT [facility] INFLUENZA B NEGATIVE NEGATIVE 03/08/2025 10:25 PM CDT [facility] Comment: Interpretation: Negative for Influenza A [...] STRUCTURE / Unknown 03/08/2025 9:18 PM CDT us Joy Gupta NP MICROBIOLOGY - GENERAL ORDERAB LES Final Result [facility] [address] [place] [address], * CT ABD+PEL W IV CON ONLY [...] 8:56 PM Narrative 03/08/2025 9:01 PM CDT [facility] [address] [place], [place] [address] EXAMINATION: CT abdomen/pelvis with contrast HISTORY: Abdominal [...] Other findings: None. Procedure Note Cody Blanc DO - 03/08/[address] [address] EXAMINATION: CT abdomen/pelvis with contrast HISTORY: Abdominal [...] By: Cody Blanc DO, 03/08/2025 8:56 PM Joy Gupta CATERING SERVER CT Final Result * XR KNEE RT 3V (03/08/2025 8:36 PM CDT) Anatomical Region Laterality Modality Knee Radiographic Phuong ging 03/08/2025 9:02 PM CDT Impressions 03/08/2025 9:02 PM CDT IMPRESSION: 1. No acute osseous abnormalities identified. 2. Moderate right knee osteoarthritis. Ordered By: ИВАН MALAVE Interpreted By: Cody Blanc DO, 03/08/2025 9:02 PM Narrative 03/08/2025 9:02 PM CDT [address] [address] EXAMINATION: XR KNEE RT 3V HISTORY: Syncope. Right knee pain. COMPARISON: None. TECHNIQUE: Multiple views of the right knee. FINDINGS: No visible acute fracture or dislocation. No evidence of osteolysis. Alignment is maintained. Moderate right knee osteoarthritis. No joint effusion. If the patient's symptoms persist or worsen over time, further evaluation with MRI would be recommended. Procedure Note Cody Blanc DO - 03/08/[address] [address] EXAMINATION: XR KNEE RT 3V HISTORY: Syncope. [...] - 2.0 MMOL/L 03/08/2025 9:09 PM CDT [facility] 03/08/2025 8:25 PM CDT us Joy Gupta NP LABORATORY Final Result [facility] [address] [place] [address], [place] [phone] * TSH W/REFLEX (03/08/2025 8:25 PM CDT) TSH 0.681 0.358 - 3.74 uIU/ML 03/08/2025 9:24 PM CDT [facility] Comment: HIGH DOSES OF BIOTIN MAY INTERFERE WITH THIS TEST RESULT. CORRELATION TO CLINICAL HISTORY AND PRESENTATION RECOMMENDED. FREE T4 NOT INDICATED 03/08/2025 8:25 PM CDT Joy Gupta NP LABORATORY Final Result [facility] [address] [place] [address], [place] [phone] * (ABNORMAL) COMPREHENSIVE METABOLIC PANEL (03/08/2025 8:25 PM CDT) Only the most recent of2 resultswithin the time period is included. Pathologist [facility] GLUCOSE 86 70 - 99 MG/DL 03/08/2025 9:24 PM CDT [facility] BUN 16 7 - 18 MG/DL 03/08/2025 9:24 PM CDT [facility] CREATININE S/P/B 0.70 0.55 - 1.02 MG/DL 03/08/2025 9:24 PM CDT [facility] SODIUM S/P/B 130(L) 136 - 145 MMOL/L 03/08/2025 9:24 PM CDT [facility] POTASSIUM S/P/B 3.3(L) 3.5 - 5.1 MMOL/L 03/08/2025 9:24 PM CDT [facility] Comment:SLIGHT HEMOLYSIS, RE SULT MAY BE AFFECTED. CHLORIDE S/P/B 95(L) 97 - 115 MMOL/L 03/08/2025 9:24 PM CDT [facility] CO2 22.7 21 - 32 MMOL/L 03/08/2025 9:24 PM CDT [facility] CALCIUM S/P/B 8.9 8.5 - 10.1 MG/DL 03/08/2025 9:24 PM CDT [facility] BILIRUBIN TOTAL S/P/B 1.2 0.2 - 1.2 MG/DL 03/08/2025 9:24 PM CDT [facility] Comment: THIS ASSAY IS NOT RECOMMENDED FOR PATIENTS UNDERGOING TREATMENT WITH ELTROMBOPAG DUE TO THE POTENTIAL FOR FALSELY ELEVATED RESULTS. TOTAL PROTEIN S/P/B 7.8 6.4 - 8.2 G/DL 03/08/2025 9:24 PM CDT [facility] ALBUMIN S/P/B 3.7 3.4 - 5.0 G/DL 03/08/2025 9:24 PM CDT [facility] AST 31 15 - 37 U/L 03/08/2025 9:24 PM CDT [facility] Comment:SLIGHT HEMOLYSIS, RE SULT MAY BE AFFECTED. ALT 29 14 - 55 U/L 03/08/2025 9:24 PM CDT [facility] ALKALINE PHOSPHATASE S/P/B 68 50 - 136 U/L 03/08/2025 9:24 PM CDT [facility] ANION GAP 12.3(H) 2 - 10 MMOL/L 03/08/2025 9:24 PM CDT [facility] BUN CREATININE RATIO 22.9 6 - 26 03/08/2025 9:24 PM CDT [facility] A/G RATIO 0.9(L) 1.0 - 2.0 RATIO 03/08/2025 9:24 PM CDT [facility] GFR ESTIMATE >90 >90 ML/MIN/1.7 3 M2 03/08/2025 9:24 PM CDT [facility] Comment: NOTE: eGFR is not calculated for patients <18 years of age or gender unknown. This is an estimated GFR calculation using the new CKD EPI creatinine equation without race and so does not require a correction factor for race. This estimated GFR should not be used for calculating drug doses. 03/08/2025 8:25 PM CDT Joy Gupta NP LABORATORY Final Result [facility] [address] [place] [address], * CBC W/DIFF AUTOMATED (03/08/2025 8:25 PM CDT) Only the most recent of3 resultswithin the time period is included. WBC DUPLICATE ORDER 4.8 - 10.8 x10'3/uL 03/08/2025 10:01 PM CDT [facility] Comment:CORRECTED ON 03/08 A T 2201: PREVIOUSLY REPORTED 8.82 RBC DUPLICATE ORDER 4.2 - 5.4 x10'6/uL 03/08/2025 10:01 PM CDT [facility] Comment:CORRECTED ON 03/08 A T 2201: PREVIOUSLY REPORTED 4.91 HGB DUPLICATE ORDER 12.0 - 16.0 G/DL 03/08/2025 10:01 PM CDT [facility] Comment:CORRECTED ON 03/08 A T 2201: PREVIOUSLY REPORTED 14.7 HCT DUPLICATE ORDER 37 - 47 % 03/08/2025 10:01 PM CDT [facility] Comment:CORRECTED ON 03/08 A T 2201: PREVIOUSLY REPORTED 42.9 MCV DUPLICATE ORDER 80 - 97 FL 03/08/2025 10:01 PM CDT [facility] Comment:CORRECTED ON 03/08 A T 2201: PREVIOUSLY REPORTED 87.4 MCH DUPLICATE ORDER 27 - 33 PG 03/08/2025 10:01 PM CDT [facility] Comment:CORRECTED ON 03/08 A T 2201: PREVIOUSLY REPORTED 29.9 MCHC DUPLICATE ORDER 32 - 35 G/DL 03/08/2025 10:01 PM CDT [facility] Comment:CORRECTED ON 03/08 A T 2201: PREVIOUSLY REPORTED 34.3 RDW DUPLICATE ORDER 11.5 - 14.5 % 03/08/2025 10:01 PM CDT [facility] Comment:CORRECTED ON 03/08 A T 2201: PREVIOUSLY REPORTED 12.8 PLT DUPLICATE ORDER 150 - 450 x10'3/uL 03/08/2025 10:01 PM CDT [facility] Comment:CORRECTED ON 03/08 A T 2201: PREVIOUSLY REPORTED 258 MPV DUPLICATE ORDER 7.4 - 10.4 FL 03/08/2025 10:01 PM CDT [facility] Comment:CORRECTED ON 03/08 A T 2201: PREVIOUSLY REPORTED 10.4 DIFFERENTIAL TYPE DUPLICATE ORDER DIFFERENTIAL 03/08/2025 10:01 PM CDT [facility] 03/08/2025 8:25 PM CDT Joy Gupta CATERING SERVER LABORATORY Edited Result - Final [facility] [address] [place] [address], * TROPONIN, QUANT (03/08/2025 8:25 PM CDT) TROPONIN I HIGH SENSITIVITY 4 <54 ng/L 03/08/2025 9:24 PM CDT [facility] Comment: HIGH DOSES OF BIOTIN, TROPONIN-SPECIFIC AUTOANTIBODIES, AND ANTIBODY THERAPY CONTAINING HAMA MAY INTERFERE WITH THIS TEST RESULT. CORRELATION TO CLINICAL HISTORY AND PRESENTATION RECOMMENDED. 03/08/2025 8:25 PM CDT Joy Gupta CATERING SERVER LABORATORY Final Result Performing Organization Address [facility] Co de Phone Number [facility] [address] [place] [address], [place] [phone] * (ABNORMAL) MAGNESIUM (03/08/2025 8:25 PM CDT) Only the most recent of2 resultswithin the time period is included. MAGNESIUM 1.7(L) 1.8 - 2.4 MG/DL 03/08/2025 9:24 PM CDT [facility] Comment:SLIGHT HEMOLYSIS, RE SULT MAY BE AFFECTED. 03/08/2025 8:25 PM CDT Joy Gupta CATERING SERVER LABORATORY Final Result Performing Organization Address [facility] Co de Phone Number [facility] [address] [place] [address], [place] [phone] * LIPASE (03/08/2025 8:25 PM CDT) LIPASE 18 13 - 75 UNITS/L 03/08/2025 9:24 PM CDT [facility] 03/08/2025 8:25 PM CDT Joy Gupta CATERING SERVER LABORATORY Final Result Performing Organization Address City/[facility] Co de Phone Number [facility] [address] [place] [address], [place] [phone] * ECG 12 lead (03/08/2025 8:04 PM CDT) 03/08/2025 8:[address] [facility] - 03/08/2025 9:[address] [facility] [facility] [address] [place] [address] Test Date: 2025-03-08 Pat Name: BIJAL DOUGLAS Department: 41 Room: EXAM08 Gender: Female Armature Winder Repairer: : 1965 Requested By: JOY GUPTA Order Number: [id number] Reading MD: Measurements Intervals [place] Rate: 102 P: 52 NE: 154 QRS: 14 QRSD: 102 T: 71 QT: 291 QTc: 379 Interpretive Statements SINUS TACHYCARDIA NONSPECIFIC T-WAVE ABNORMALITY ABNORMAL RHYTHM ECG Compared to ECG 02/13/2022 16:04:01 T-wave abnormality now present Sinus rhythm no longer present Ventricular premature complex(es) no longer present Other ischemic changes, not STEMI Preliminary EKG Interpretation by Иван Malave M.D. Procedure Note Md, Generic Conversion, MD - 03/08/2025 [facility] [address] [place] [address] Test Date: 2025-03-08 Pat Name: BIJAL DOUGLAS Department: 41 Room: EXAM08 Gender: Female Armature Winder Repairer: : 1965 Requested By: JOY GUPTA Order Number: [id number] Reading MD: Measurements Intervals [place] Rate: 102 P: 52 NE: 154 QRS: 14 QRSD: 102 T: 71 QT: 291 QTc: 379 Interpretive Statements SINUS TACHYCARDIA NONSPECIFIC T-WAVE ABNORMALITY ABNORMAL RHYTHM ECG Compared to ECG 02/13/2022 16:04:01 T-wave abnormality now present Sinus rhythm no longer present Ventricular premature complex(es) no longer present Other ischemic changes, not STEMI Preliminary EKG Interpretation by Иван Malave M.D. us Joy Gupta CATERING SERVER ECG ORDERABLES Final Result [facility] * XR CHEST PORTABLE (03/08/2025 8:00 PM CDT) Anatomical Region Laterality Modality Chest Fluoroscopy 03/08/2025 9:03 PM CDT Impressions 03/08/2025 9:03 PM CDT IMPRESSION: No acute findings. Ordered By: JOY GUPTA Interpreted By: Cody Blanc DO, 03/08/2025 9:03 PM Narrative 03/08/2025 9:03 PM CDT [place] [address] EXAMINATION: XR CHEST PORTABLE HISTORY: Syncope. Shortness [...] Procedure Note Cody Blanc DO - 03/08/[address] [address] EXAMINATION: XR CHEST PORTABLE HISTORY: Syncope. Shortness [...] Blanc DO, 03/08/2025 9:03 PM Joy Gupta CATERING SERVER GENERAL IMAGING Final Result * XR ANKLE RT M3V (03/08/2025 8:00 PM CDT) Anatomical Region Laterality Modality Ankle Radiographic Phuong ging 03/08/2025 9:04 PM CDT Impressions 03/08/2025 9:04 PM CDT IMPRESSION: No acute osseous abnormalities identified. Ordered By: JOY GUPTA Interpreted By: Cody Blanc DO, 03/08/2025 9:04 PM Narrative 03/08/2025 9:04 PM CDT [place] [address] EXAMINATION: XR ANKLE RT M3V HISTORY: Syncope. [...] Procedure Note Cody Blanc DO - 03/08/2025 [place] [address] EXAMINATION: XR ANKLE RT M3V HISTORY: Syncope. [...] Blanc DO, 03/08/2025 9:04 PM Joy Gupta CATERING SERVER GENERAL IMAGING Final Result * MRI GENERIC (02/27/2025) Anatomical Region Laterality Modality Other 02/27/2025 [facility] Scanned SCANNING Final Resu lt * VITAMIN B12 / FOLATE (02/21/2025 12:00 AM CDT) 02/21/2025 Nicole Lockettholger SUPERVISOR REAL ESTATE OFFICE LABORATORY Final Result Performing Organization Address City/[facility]/ZIP Co de Phone Number [facility] ONBASE * URINALYSIS WI REFLEX TO CULTURE (02/21/2025 12:00 AM CDT) URINE SPECIMEN OBTAINED BY CLEAN CATCH PROCEDURE / Unknown 02/21/2025 Nicole Holt SUPERVISOR REAL ESTATE OFFICE URINE ORDERABLES Final Result Performing Organization Address [facility] Co de Phone Number [facility] ON[facility] * IMAGE GENERIC (01/18/2025) Anatomical Region Laterality Modality Other 01/18/2025 [facility] Scanned SCANNING Final Resu lt * BONE DENSITY GENERIC (SCAN ORDER) (01/17/2025) Anatomical Region Laterality Modality Other 01/17/[address] [facility] Scanned SCANNING Final Resu lt * XR CHEST PA+LAT (12/29/2024 11:09 AM TAFFY PULLER) Anatomical Region Laterality Modality Chest Radiographic Phuong ging 12/29/2024 11:2 5 AM TAFFY PULLER Impressions 12/29/2024 11:26 AM TAFFY PULLER IMPRESSION: No radiographic evidence of active chest disease. Ordered By: NICOLE HOLT Interpreted By: Thaddeus Palma MD, 12/29/2024 11:25 AM Narrative 12/29/2024 11:26 AM TAFFY PULLER [facility] Family [place] [address] Examination: XR CHEST PA+LAT Exam time: 12/29/2024 11:05 AM Clinical history: Cough. Congestion. Comparison: No prior exam Technique: Upright PA and lateral views Findings: Excellent and pulmonary vasculature are within normal limits. Lungs appear clear. No evidence of pleural effusion. No evidence of bronchial wall thickening or abnormal pulmonary interstitium. Procedure Note Thaddeus Palma MD - 12/29/2024 [facility] [place] [address] Examination: XR CHEST PA+LAT Exam time: 12/29/2024 [...] Palma MD, 12/29/2024 11:25 AM Nicole Holt SUPERVISOR REAL ESTATE OFFICE GENERAL IMAGING Final Result * COLONOSCOPY GENERIC (SCAN ORDER) (12/19/2024) 12/19/[address] [facility] Scanned SCANNING Final Resu lt * MAMMOGRAM GENERIC (SCAN ORDER) (10/20/2024) Anatomical Region Laterality Modality Other 10/20/2024 [facility] Scanned SCANNING Final Resu lt * HEPATITIS C AB ([facility] ONLY) (09/04/2022 9:42 AM CDT) HEPATITIS C AB NON-REACTI VE NON-REACT VALENTIN 09/04/2022 6:29 PM CDT [facility] Comment: ANTIBODIES TO HCV NOT DETECTED. DOES NOT EXCLUDE THE POSSIBILITY OF EXPOSURE TO HCV. 09/04/2022 9:42 AM CDT Nicole [facility] Final Result [facility] [address] [place] [address], [id number] from Last 3 Months or Most Recently Relevant to Health Maintenance Insurance Care Teams Pastry Cook Apprentice Relationship Specialty Start Date End Date Nicole Holt FNP [address] [place] [id number] PCP - General Nurse Practitioner Family 09/12/21
--- OUTSIDE RECORDS SUMMARY | 2025-03-26 18:30 | XMS_ITS | Encounter Summary ---
Author Organization [facility] Address [address] [place] [address] Care Team Providers Care Draw In Hand Name Role Phone Nancy Alvares Primary Care Provider [phone] Encounter Details Date Type Department Care Team (Late st Contact Info) Description 10/12/2024 [employer] Message Enc [facility] Family & Internal Medicine [facility] [address] [place] [address] Nancy Alvares FNP [facility] [place], [place] [id number] EDG & Colonoscopy Referral Social History Tobacco [...] CDT Gender Identity Female 12/23/2021 9:01 AM HOURLY MANAGER Sexual Orientation Straight 12/23/2021 9: 01 AM HOURLY MANAGER documented as of this encounter Progress Notes * KIANNA Denis - 10/17/2024 3:33 PM CST Oh I thought she wanted a GI referral? LY MANAGER * Lian Marrufo - 10/12/2024 12:41 PM CST Patient called back and wanted to speak to Nancy about this referral. Everyone is a lunch so I told her that someone will give her a call once the message has been read. LY MANAGER documented in this encounter Plan of Treatment Upcoming Encounters Date Type Department Care Team (Late st Contact Info) Description 09/20/2025 11:00 AM CDT Office Visit [facility] Family & Internal Medicine - [place] [id number] [place] [address] Nancy Alvares FNP [address] [place] [id number] documented as of this encounter Visit Diagnoses Not on filedocumented in this encounter Additional Health Concerns Infection Onset Date Last Indicated Resolved Time COVID-19 Rule Out 03/08/2025 03/08/2025 03/08/2025 10:26 PM CDT Respiratory Rule-Out 03/08/2025 03/08/2025 025 10:25 PM CDT Assessment Noted Time PHQ-9 Depression Total Score: 21 023 4:28 PM HOURLY MANAGER documented as of this encounter Care Teams Draw In Hand Relationship Specialty Start Date End Date Nancy Alvares FNP [address] [place] [id number] PCP - General Nurse Practitioner Family 09/12/21 documented as of this encounter
[2025-03-26 18:36] LABS: Alanine Aminotransferase 25 U/L (6-35); Albumin Level 4.3 g/dL (3.5-5.1); Alkaline Phosphatase 74 U/L (38-126); Anion Gap 8 mmol/L (4-12); Aspartate Amino Transferase 32 U/L (14-36); Blood Urea Nitrogen 24 mg/dL (7-17); Calcium 9.3 mg/dL (8.4-10.2); Carbon Dioxide 34 mmol/L (22-30); Chloride 95 mmol/L (98-107); Estimated Glomerular Filt Rate > 60; Glucose 92 mg/dL (65-110); Potassium 3.4 mmol/L (3.4-5.0); Sodium 137 mmol/L (137-145)
== END 2025-03-26 16:58 | disposition home or self-care (01) ==
PROVIDERS: PCP Nurse Practitioner Family; Visit Provider Nurse Practitioner Family
DX: E87.6 Hypokalemia (principal)
CPT/HCPCS: 36415; 80053

== ENCOUNTER 2025-04-19 14:01 | Outpatient (CLI) | payer BC, SELFPAY ==
--- NOTE | ~2025-04-19 | MR_ITS ---
MRI of the right hip Clinical history: Pain Technique: Coronal T1-weighted, T2-weighted, and proton-density fat-sat images, and axial T1-weighted and proton-density fat-sat images were acquired through the pelvis. Coronal T2-weighted images and c oronal, axial, and sagittal proton-density fat-sat images were acquired through the right hip. Findings: There is no fracture or avascular necrosis of either hip. Bone marrow signals the proximal femora unremarkable. There are subchondral cystic change and mild marrow edema in the superior right acetabulum. There is diffuse high-grade chondromalacia of the right hip joint with small femoral head neck junction osteophytes. Left hip joint demonstrates probable minimal chondral thinning. No joint effusion seen on either side. No right acetabular labral tear evident. There is a 1.9 x 0.8 cm septated cystic mass along the infer ior margin of the left acetabulum, suspicious for para-labral cyst with underlying labral tear. Visualized musculature about the pelvis and right hip is unremarkable. No muscle atrophy or edema adam dent. Visualized tendons are intact. No other soft tissue mass or fluid collection seen. IMPRESSION: Moderate degenerative change of the right hip joint, as detailed above, with reactive subchondral cys tic change and marrow edema in the remainder of the right acetabulum. 1.9 x 0.8 cm probable paralabral cyst along the inferior margin of the left acetabulum, suspicious fo r underlying labral tear. Reviewed, dictated and finalized at [facility]. IMPRESSION: Moderate degenerative change of the right hip joint, as detailed above, with re active subchondral cystic change and marrow edema in the remainder of the right acetabulum. 1.9 x 0.8 cm probable paralabral cyst along the inferior margin of the left annie tabulum, suspicious for underlying labral tear.
--- NOTE | ~2025-04-19 | MR_ITS ---
EXAMINATION: MR_[id number]_MR DATE: 04/19/2025 15:32 INDICATION: Right knee and ankle pain TECHNIQUE: 1. Magnetic resonance imaging (MRI) of the right knee was performed without intravenous contrast. Se quences included coronal PD-weighted FSE, coronal PD-weighted FS FSE, sagittal T2-weighted FSE, sagit hollis PD-weighted FS FSE and axial PD weighted fat saturated FSE. 2. MRI of the right ankle was performed without intravenous contrast. Sequences included axial, coron al and sagittal PD-weighted FSE and PD-weighted FS FSE. COMPARISON: None. FINDINGS: RIGHT KNEE: Medial compartment: Medial extrusion of the medial meniscal body. Complex tear of the medial meniscus which includes a lo ngitudinal horizontal tear into the superior articular surface of the meniscal body and posterior hor n and additional vertical longitudinal tear plane involving the inner third of the posterior horn. Th ere is partial thickness cartilage loss with smooth chondral surface regularity along the weightbeari ng medial femoral condyle with relatively smooth chondral surface along the medial tibial plateau. In places the cartilage loss appears to involve greater than 50% the cartilage thickness but without de generative subchondral changes. Lateral compartment: Longitudinal horizontal tear extending to the inferior articular surface of the anterior horn, body a nd posterior horn of the lateral meniscus. Partial-thickness cartilage loss in place involving greate r than 3% the cartilage thickness along the lateral tibial plateau without degenerative subchondral c hanges. Shallow chondral surface regularity at the anterior weightbearing lateral femoral condyle als o without degenerative subchondral changes. Patellofemoral compartment: Deep chondral ulceration without degenerative subchondral changes at the inferior aspect of the media l patellar facet. Additional partial-thickness chondral ulceration involving up to 50% of the cartila ge thickness and without degenerative subchondral changes at the central aspect of the lateral trochl ea. Ligaments and tendons: Anterior and posterior cruciate ligaments are normal. The medial collateral ligament and fibular carter ateral ligament complex are normal. The extensor mechanism is normal. The visualized medial and later al hamstring tendons as well as the iliotibial band are normal. Fluid: Physiologic amount of fluid in the joint space. No loose osteochondral bodies identified. Osseous/other: Normal marrow signal. No fracture or pathologic marrow replacing process. RIGHT ANKLE: Medial ankle ligaments: Deep and superficial deltoid ligaments as well as the spring ligament are normal. Lateral ankle ligaments: The anterior and posterior inferior tibiofibular ligaments are normal. The calcaneofibular and dip unit operator ior talofibular ligaments are normal. There are some attenuation of the anterior talofibular ligament without surrounding edema consistent with sequela of chronic sprain/partial tear. Tendons: Achilles tendon is normal. The peroneus longus tendon is normal. There is mild tendinopathy and longi tudinal split tearing of the peroneus brevis tendon centered at the level of the tip of the lateral m alleolus. The tibialis anterior and extensor hallucis longus and extensor digitorum longus tendons ar e normal. The tibialis posterior, flexor digitorum longus and flexor hallucis longus tendons are norm al. Plantar fascia: Small plantar calcaneal spurs. Plantar aponeurosis is normal with no edema in the surrounding soft ti ssues or adjacent bone to suggest acute plantar fasciitis. Bones/other: Bone alignment is normal with normal bone marrow signal throughout. No fracture or pathologic marrow replacing process. Mild polyarticular osteoarthritis at the calcaneocuboid and multiple tarsometatars al joints. Moderate-sized osteophyte at the dorsal talonavicular capsular insertion along the proxima l navicular which could be due to chronic enthesopathy or sequela of chronic partial tear. Fluid: Physiologic amount fluid in the joint spaces. No abnormal fluid collections identified. IMPRESSION: 1. Medial and lateral meniscal tears. 2. Tricompartmental osteoarthritis at the right knee, moderate severity in the medial compartment and mild in the lateral and patellofemoral compartments. 3. 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 4. Mild tendinopathy and longitudinal split tearing of the peroneus brevis tendon. 5. Mild polyarticular osteoarthritis at the calcaneocuboid and multiple tarsometatarsal joints. Reviewed, dictated and finalized at location [facility]. IMPRESSION: 1. Medial and lateral meniscal tears. 2. Tricompartmental osteoarthritis at the right knee, moderate severity in the medial compartment and mild in the lateral and patellofemoral compartments. 3. 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 4. Mild tendinopathy and longitudinal split tearing of the peroneus brevis tend on. 5. Mild polyarticular osteoarthritis at the calcaneocuboid and multiple tarsome tatarsal joints.
== END 2025-04-19 14:02 | disposition home or self-care (01) ==
LOC: GOSHIMG 14:02
PROVIDERS: PCP Nurse Practitioner Family; Visit Provider Nurse Practitioner Family
DX: S83.281A Other tear of lateral meniscus, current injury, right knee, initial encounter (principal); S83.241A Other tear of medial meniscus, current injury, right knee, initial encounter; S83.8X1A Sprain of other specified parts of right knee, initial encounter; X58.XXXA Exposure to other specified factors, initial encounter; M17.11 Unilateral primary osteoarthritis, right knee; S93.491A Sprain of other ligament of right ankle, initial encounter; M76.71 Peroneal tendinitis, right leg; M19.079 Primary osteoarthritis, unspecified ankle and foot; M16.11 Unilateral primary osteoarthritis, right hip; M85.871 Other specified disorders of bone density and structure, right ankle and foot; M85.631 Other cyst of bone, right forearm
CPT/HCPCS: 73721

== ENCOUNTER 2025-06-14 08:50 | Outpatient (CLI) | payer OTHER, BC, SELFPAY ==
--- OUTSIDE RECORDS SUMMARY | 2025-06-14 09:01 | XMS_ITS | Clinical Summary ---
Author Organization [facility] [address] Address [address] [place] [address] Care Team Providers Care Skein Inspector Name Role Phone Nancy Alvares NP Primary Care Provider [phone] Allergies No known active allergies Medications losartan (COZAAR) 50 mg tablet take 1 tablet by oral route every day 0 0 015 Active indapamide (LOZOL) 2.5 mg tablet take 1 tablet by oral route 2 times every day in the morning 0 0 015 Active eletriptan (RELPAX) 40 mg tablet Take 1 tablet (40 mg total) by mouth as needed Active LORazepam (ATIVAN) 0.5 mg tablet Take 1 tablet (0.5 mg total) by mouth as needed 5 019 Active ondansetron (ZOFRAN) 4 mg tablet TAKE 1 TABLET BY MOUTH EVERY 6 HOURS NEEDED FOR NAUSEA OR VOMITING 021 Active folic acid (FOLVITE) 1 mg tablet 022 Active cholecalciferol (VITAMIN D-3) 50,000 unit capsule Take 1 capsule (50,000 Units total) by mouth once a week 024 Active albuterol HFA (PROVENTIL HFA,VENTOLIN HFA,PROAIR HFA) 90 mcg/actuation inhaler INHALE 1-2 PUFFS BY MOUTH EVERY 4-6 HOURS NEEDED SHORTNESS OF BREATH 025 Active pramipexole (MIRAPEX) 0.25 mg tabletIndications :Parkinson disease (HCC) Take 1 tablet (0.25 mg total) by mouth 3 (three) times a day 270 tablet 1 025 2024 Active sodium, potassium & mag sulfates (SUPREP BOWEL KIT) 17.5-3.13-1.6 gram recon solnIndications:B owel Evacuation PLEASE TAKE THE 1ST BOTTLE AT 6PM THE DAY BEFORE THE PROCEDURE, AND THE 2ND BOTTLE SIX HOURS PRIOR TO LEAVING HOME IN THE MORNING. 354 mL 025 Active HYDROcodone-aceta minophen (NORCO) 5-325 mg per tablet Take 1 tablet by mouth every 6 (six) hours as needed 025 Active ibuprofen (ADVIL,MOTRIN) 400 mg tablet Take 2 tablets (800 mg total) by mouth every 8 (eight) hours as needed for pain 025 Active aspirin 81 mg enteric coated tablet Take 1 tablet (81 mg total) by mouth daily Active omeprazole (PriLOSEC) 40 mg capsule Take 1 capsule (40 mg total) by mouth daily 30 capsule 2 025 Active aspirin-acetamino phen-caffeine (EXCEDRIN EXTRA STRENGTH) 250-250-65 mg per tablet take 0.5 Tablet by Oral route once as needed for migraine 0 0 015 2024 Discontinued(P atient Reported) Symbicort 80-4.5 mcg/actuation inhaler 021 2024 Discontinued(T herapy completed) HYDROcodone-chlor pheniramine ER (TUSSIONEX PENNKINETIC) 2-1.6 mg/mL ER suspension Take 2.5 mL by mouth every 12 (twelve) hours as needed 021 2024 Discontinued(T herapy completed) Ciprodex otic suspension 023 2024 Discontinued(T herapy completed) methylPREDNISolon e (MEDROL DOSEPACK) 4 mg Dosepack 023 2024 Discontinued(T herapy completed) methylPREDNISolon e (MEDROL) 4 mg tablet 023 2024 Discontinued(T herapy completed) omeprazole (PriLOSEC) 40 mg capsule TAKE 1 CAPSULE(40 MG) BY MOUTH DAILY 30 capsule 11 024 2024 Discontinued(R eorder) fluticasone propionate (FLONASE) 50 mcg/actuation nasal spray Administer 2 sprays into affected nostril(s) daily 023 2024 Discontinued(T herapy completed) omeprazole (PriLOSEC) 40 mg capsule Take 1 capsule (40 mg total) by mouth 2 (two) times a day 60 capsule 11 025 2024 Discontinued(T herapy completed) ondansetron ODT (ZOFRAN-ODT) 4 mg disintegrating tablet 025 2024 Discontinued polyethylene glycol (GoLYTELY) 236-22.74-6.74 -5.86 gram solution Take 4,000 mL by mouth once for 1 dose PLEASE TAKE 1ST HALF (2L) AT 6PM THE EVENING PRIOR TO YOUR PROCEDURE, AND THE 2ND HALF (2L) SIX HOURS BEFORE LEAVING HOME IN THE MORNING. 4000 mL 025 2024 Active Problems Problem Noted Date Diagnosed Date LUQ pain 05/25/2025 Abnormal finding on imaging 05/23/2025 Blood in stool 05/23/2025 Bowel wall thickening 05/23/2025 Lower GI bleed 05/18/2025 Epigastric pain 10/12/2024 Abdominal pain 10/12/2024 Left carotid bruit 10/03/2024 Personal history of colonic polyps 11/16/2022 Overview (11/16/2022): Added automatically from request for surgery [id number] Family history of malignant neoplasm of gastrointestinal tract 11/16/2022 Overview (11/16/2022): Added automatically from request for surgery [id number] Colon cancer screening 09/17/2022 Parkinson disease 06/10/2021 Assessment & Plan (11/18/2021 4:42 PM MANAGER MECHANICAL): Patient continues at this time on pramipexole [...] Encounters Date Type Department Care Team Description 05/31/2025 Orders Only [facility] Gastroenterology [address] [place] [address] Medical Office Building [address] [place] [address] Ayanna Venegas RN 05/25/2025 Telephone [facility] Gastroenterology [address] [place] [address] Medical Office Building [address] [place] [address] Ayanna Venegas RN GI Preprocedure 05/23/2025 10:15 AM CDT Office Visit [facility] Cardiology [address] [place] [address] Aiden Campoverde MD Pulmonary hypertension (HCC) (Primary Dx); Palpitations; Nonrheumatic mitral valve regurgitation; Need for lipid screening; GAVIOTA (obstructive sleep apnea); Essential hypertension 05/23/2025 Telephone [facility] Gastroenterology [address] [place] [address] Medical Office Building [address] [place] [address] Ayanna Venegas RN GI Preprocedure 05/21/2025 Orders Only [facility] Gastroenterology [address] [place] [address] Medical Office Building [address] [place] [address] Bailey Merrill, DEVIN 05/18/2025 Telephone [facility] Gastroenterology [address] [place] [address] Medical Office [address] [place] [address] Bailey Merrill, grape cutter for colonoscopy 05/08/2025 Telephone [facility] Cardiology at [address] [place] [address] Aiden Campoverde MD from Last 3 Months Surgical History Surgery Date Site/Laterality Comments SECTION x4 HYSTERECTOMY 11/29/2014 - 11/28/2015 COLONOSCOPY POLYPECTOMY KNEE SURGERY 05/22/2025 Right [facility]iscetomy at [facility] Medical History Medical History Date Comments Ventricular trigeminy episode af ter hysterectomy Lyme disease Hypertension Mitral valve regurgitation GAVIOTA (obstructive sleep apnea) duque s cpap Parkinson's disease (HCC) Possi ble early onset did not blanca pramipexole Colon polyp Family History Medical History Relation Name Comments Heart attack Father Nikhil Myocardial infa rction; Cause of : Myocardial infarction Breast cancer Maternal Grandmother Family history of malignant neoplasm of breast - (Added by TW Conv) Colon cancer Maternal Grandmother Depression Mother Joan Cancer Mother's Sister Colon [...] you have a drink containing alcohol? Never 05/23/2025 Q2: How many drinks containi ng alcohol do you have on a typical day when you are drinking? Patient does not drink Q3: How often do you have si x or more drinks on one occasion? Never 05/23/2025 Personal Safety Answer Date Recorded Have you ever been in or are you currently in a harmful physical or emotional relationship or is someone making you feel afraid or unsafe? Denies 12/19/2024 Comments No Sex and Gender Information Value Date Recorded Sex Assigned at Not on file Legal Sex Female 9:09 PM MANAGER MECHANICAL Gender Identity Not on file Sexual Orientation Not on file Obstetrics History Last Filed Vital Signs Vital Sign Reading Time Taken Comments Blood Pressure 104/58 05/23/2025 10:23 AM CDT Pulse 75 05/23/2025 10:23 AM CDT Temperature 36.3 C (97.3 F) 12/19/2024 9:15 AM MANAGER MECHANICAL Respiratory Rate 20 01/26/2025 3:50 PM MANAGER MECHANICAL Oxygen Saturation 98% 05/23/2025 10: 23 AM CDT Inhaled Oxygen Concentration - - Weight 91.9 kg (202 lb 11.2 oz) 025 10:23 AM CDT Height 167.6 cm (5' 6) 05/23/2025 10:2 3 AM CDT Body Mass Index 32.72 05/23/2025 10:23 AM CDT Plan of Treatment Upcoming Encounters Date Type Department Care Team (Late st Contact Info) Description 07/11/2025 11:00 AM CDT Hospital Encounter [facility] Endoscopy [id number] [place] [address] Catrachito Link MD [address] [facility] [place] [address] 07/11/2025 11:00 AM CDT - 07/11/2025 11:30 AM CDT Surgery [facility] Endoscopy [id number] [place] [address] Catrachito Link MD [address] [place] [address] COLONOSCOPY Scheduled Procedures Name Priority Associated Diagnoses Date/Ti me COLONOSCOPY Lower GI bleed LUQ pain Abnormal finding on imaging Blood in stool Bowel wall thickening 07/11/2025 11:00 AM CDT COLONOSCOPY Colon cancer screening Health Maintenance Due Date Last Done Comments Breast Cancer Screening-Mammogram 1965 Depression Screening 1965 Hepatitis C Screening 1965 Hepatitis B Screening 1982 Regular Well Visit/Exam 18-64 1982 Zoster Vaccine (1 of 2) 2014 Covid-19 Vaccine (2 - season) 2024 09/19/2021 Influenza Vaccine (#1) 2025 4, 10/01/2023, 08/21/2022, Additional history exists DTaP/Tdap/Td Vaccine (3 - Td or Tdap) 11/14/2030 11/14/2020, 04/28/2008 Colon Cancer Screening-Colonoscopy 12/19/2034 12/19/2024, 11/18/2022, 09/21/2017 Colon Cancer Screening-CT Colonography Discontinued 12/19/2024, 11/18/2022, 09/21/2017 Colon Cancer Screening-DNA Stool Discontinued 12/19/2024, 11/18/2022, 09/21/2017 Colon Cancer Screening-FIT Discontinued 12/19, 11/18/2022, 09/21/2017 Colon Cancer Screening-Sigmoidoscopy Discontinued 12/19/2024, 11/18/2022, 09/21/2017 Pneumococcal vaccine <65 Aged Out No longer eligible based on patient's age to complete this topic Procedures Procedure Name Priority Date/Time Associated Diagnosis Comments POCT LIPID PANEL Routine 05/23/2025 10:4 8 AM CDT Need for lipid screening COLONOSCOPY 12/19/2024 8:53 AM MANAGER MECHANICAL from Last 3 Months or Most Recently Relevant to Health Maintenance Results * POCT lipid panel (05/23/2025 10:48 AM CDT) Cholesterol, POC 152 <200 MG/DL HDL, POC 55 >=40 mg/dL Triglycerides, POC 114 <=149 mg/dL LDL Cholesterol POC 73 <=129 mg/dL Chol/HDL Ratio, POC 1.3 NONE Non-HDL Cholesterol, POC 96 NONE mg/dL Cholesterol Total, POC 152 30 - 199 mg/dL Capillary blood 05/23/2025 1 0:48 AM CDT us Aiden Campoverde MD POINT OF CARE TEST ORDERA BLES Final Result * Colonoscopy (12/19/2024 8:53 AM MANAGER MECHANICAL) Anatomical Region Laterality Modality Other Narrative Procedure Note Catrachito Link MD - 12/19/2024 8:53 AM CST ENDOSCOPY LAB Patient Name: Bijal Kyle Procedure Date: 12/19/2024 8:53 AM Date of : 1965 Admit Type: Outpatient Age: 59 Gender: Female Attending MD: Catrachito Link M.D. Room: [facility] ENDOSCOPY ROOM 04 Note Status: [...] The scope was passed under direct vision.The [id number] was introduced through the anusand advanced to [...] Most Recently Relevant to Health Maintenance Insurance [facility] HMO/PPO Address[facility] [id number] [place] [id number] R [facility] H[facility]/PPO Address: [address] [address] Advance Directives For more information, please contact: [phone] * Full Code (Latest Code Status on File) Date Activated Date Inactivated Comments 12/19/2024 7:45 AM 12/19/2024 6:30 PM * Full Code Date Activated Date Inactivated Comments 11/18/2022 11:43 AM 11/18/2022 5:30 PM Care Teams Skein Inspector Relationship Specialty Start Date End Date Nancy Alvares NP [address] [place], [place] [id number] PCP - General Nurse Practitioner 10/08/21
--- OUTSIDE RECORDS SUMMARY | 2025-06-14 09:01 | XMS_ITS | Encounter Summary ---
Author Organization [facility] Address [address] [place] [address] Phone Care Team Providers Care Radiology Supervisor Name Role Phone Kiran Garvey MD Primary Care Provider + [phone] Kiran Garvey MD Primary Care Provider + [phone] Lorena Tayolr MD Primary Care Provider + [phone] Dante Olivarez Primary Care Provider +[phone] Morro Doyle MD Primary Care Provider +[phone] Nancy Alvares NP Primary Care Provider + [phone] Encounter Details Date Type Department Care Team (Latest Contact Info) Description 02/11/2004 Orders Only [facility] Scanning, Provider Social History Tobacco Use Types Packs/Day Years Used Date Smoking Tobacco: Never Assessed Comments Unknown Sex and Gender Information Value Date Recorded Sex Assigned at Not on file Legal Sex Female 9:09 PM AIRPLANE 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 Gender Identity Not on file Sexual Orientation Not on file documented as of this encounter Plan of Treatment Upcoming Encounters Date Type Department Care Team (Late st Contact Info) Description 07/11/2025 11:00 AM CDT Hospital Encounter [facility] Endoscopy [address] [place] [address] Catrachito Link MD [address] [place] [address] 07/11/2025 11:00 AM CDT - 07/11/2025 11:30 AM CDT Surgery [facility] Endoscopy [address] [address] [address] Catrachito Link MD [address] [place] [address] COLONOSCOPY Scheduled Procedures Name Priority Associated Diagnoses Date/Ti me COLONOSCOPY Lower GI bleed LUQ pain Abnormal finding on imaging Blood in stool Bowel wall thickening 07/11/2025 11:00 AM CDT COLONOSCOPY Colon cancer screening documented as of this encounter Procedures Procedure Name Priority Date/Time Associated Diagnosis Comments SCAN - RADIOLOGY/IMAGING 02/11/2004 documented in this encounter Results * SCAN - RADIOLOGY/IMAGING (02/11/2004) Anatomical Region Laterality Modality Other us Provider Scanning Final Result documented in this encounter Visit Diagnoses Not on filedocumented in this encounter Care Teams Radiology Supervisor Relationship Specialty Start Date End Date Kiran Garvey MD [address] [place] [address] PCP - General 02/26/17 01/25/19 Kiran Garvey MD [address] [facility] [place] [address] PCP - General 03/21/15 02/25/17 Lorena Taylor MD [address] [facility] [place] [address] PCP - General Family Practice 01/26/19 03/31/21 Dante Olivarez PA [address] [place] [address] PCP - General Physician Dynamite Packing Machine Operator 04/01/21 06/09/21 Morro Doyle MD [address] [place] [address] PCP - General Internal Medicine 06/10/21 10/07/21 Nancy Alvares NP [address] [place] [address] PCP - General Nurse Practitioner 10/08/21 documented as of this encounter
--- OUTSIDE RECORDS SUMMARY | 2025-06-14 09:01 | XMS_ITS | Encounter Summary ---
Author Organization [facility] Address [address] [place] [address] Phone Care Team Providers Care Can Maker Name Role Phone Kiran Garvey MD Primary Care Provider + [phone] Kiran Garvey MD Primary Care Provider + [phone] Lorena Taylor MD Primary Care Provider + [phone] Dante Olivarez Primary Care Provider [phone] Morro Doyle MD Primary Care Provider +[phone] Nancy Alvares NP Primary Care Provider + [phone] Encounter Details Date Type Department Care Team (Latest Contact Info) Description 11/10/2006 Orders Only [facility] Scanning, Provider Social History Tobacco Use Types Packs/Day Years Used Date Smoking Tobacco: Never Assessed Comments Unknown Sex and Gender Information Value Date Recorded Sex Assigned at Not on file Legal Sex Female 9:09 PM COW PUNCHER Gender Identity Not on file Sexual Orientation Not on file documented as of this encounter Plan of Treatment Upcoming Encounters Date Type Department Care Team (Late st Contact Info) Description 07/11/2025 11:00 AM CDT Hospital Encounter [facility] Endoscopy [address] [place] [address] Catrachito Link MD [address] [place] [address] 07/11/2025 11:00 AM CDT - 07/11/2025 11:30 AM CDT Surgery [facility] Endoscopy [address] [address] [address] Catrachito Link MD [address] [place] [address] COLONOSCOPY Scheduled Procedures Name Priority Associated Diagnoses [...] on filedocumented in this encounter Care Teams Can Maker Relationship Specialty Start Date End Date Kiran Garvey MD [address] [place] [address] PCP - General 02/26/17 01/25/19 Kiran Garvey MD [address] [place] [address] PCP - General 03/21/15 02/25/17 Lorena Taylor MD [address] [place] [address] PCP - General Family Practice 01/26/19 03/31/21 Dante Olivarez PA [address] [place] [address] PCP - General Physician Entry Clerk 04/01/21 06/09/21 Morro Doyle MD [address] [place] [address] PCP - General Internal Medicine 06/10/21 10/07/21 Nancy Alvares NP [address] [place] [address] PCP - General Nurse Practitioner 10/08/21 documented as of this encounter
--- OUTSIDE RECORDS SUMMARY | 2025-06-14 09:01 | XMS_ITS | Encounter Summary ---
Author Organization [facility] Address [address] [place] [address] Phone Care Team Providers Care Programming Equipment Operator Name Role Phone Kiran Garvey MD Primary Care Provider + [phone] Kiran Garvey MD Primary Care Provider + [phone] Lorena Taylor MD Primary Care Provider + [phone] Dante Olivarez Primary Care Provider [phone] Morro Doyle MD Primary Care Provider +[phone] Nancy Alvares NP Primary Care Provider + [phone] Encounter Details Date Type Department Care Team (Latest Contact Info) Description 09/27/2009 Orders Only [facility] Scanning, Provider Social History Tobacco Use Types Packs/Day Years Used Date Smoking Tobacco: Never Assessed Comments Unknown Sex and Gender Information Value Date Recorded Sex Assigned at Not on file Legal Sex Female 9:09 PM 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 Gender Identity Not on file Sexual Orientation Not on file documented as of this encounter Plan of Treatment Upcoming Encounters Date Type Department Care Team (Late st Contact Info) Description 07/11/2025 11:00 AM CDT Hospital Encounter [facility] Endoscopy [address] [place] [address] Catrachito Link MD [address] [place] [address] 07/11/2025 11:00 AM CDT - 07/11/2025 11:30 AM CDT Surgery [facility] Endoscopy [address] [address] [address] Catrachito Link MD [address] [place] [address] COLONOSCOPY Scheduled Procedures Name Priority Associated Diagnoses [...] on filedocumented in this encounter Care Teams Programming Equipment Operator Relationship Specialty Start Date End Date Kiran Garvey MD [address] [place] [address] PCP - General 02/26/17 01/25/19 Kiran Garvey MD [address] [place] [address] PCP - General 03/21/15 02/25/17 Lorena Taylor MD [address] [place] [address] PCP - General Family Practice 01/26/19 03/31/21 Dante Olivarez PA [address] [place] [address] PCP - General Physician Tractor Expert 04/01/21 06/09/21 Morro Doyle MD [address] [place] [address] PCP - General Internal Medicine 06/10/21 10/07/21 Nancy Alvares NP [address] [place] [address] PCP - General Nurse Practitioner 10/08/21 documented as of this encounter
--- OUTSIDE RECORDS SUMMARY | 2025-06-14 09:01 | XMS_ITS | Encounter Summary ---
Author Organization [facility] Address [address] [place] [address] Phone Care Team Providers Care Towel Sorter Name Role Phone Kiran Garvey MD Primary Care Provider + [phone] Kiran Garvey MD Primary Care Provider + [phone] Lorena Taylor MD Primary Care Provider + [phone] Dante Olivarez Primary Care Provider [phone] Morro Doyle MD Primary Care Provider +[phone] Nancy Alvares NP Primary Care Provider + [phone] Encounter Details Date Type Department Care Team (Latest Contact Info) Description 11/23/2006 Orders Only [facility] Scanning, Provider Social History Tobacco Use Types Packs/Day Years Used Date Smoking Tobacco: Never Assessed Comments Unknown Sex and Gender Information Value Date Recorded Sex Assigned at Not on file Legal Sex Female 9:09 PM QUALITY 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 Gender Identity Not on file Sexual Orientation Not on file documented as of this encounter Plan of Treatment Upcoming Encounters Date Type Department Care Team (Late st Contact Info) Description 07/11/2025 11:00 AM CDT Hospital Encounter [facility] Endoscopy [address] [place] [address] Catrachito Link MD [address] [place] [address] 07/11/2025 11:00 AM CDT - 07/11/2025 11:30 AM CDT Surgery [facility] Endoscopy [address] [address] [address] Catrachito Link MD [address] [place] [address] COLONOSCOPY Scheduled Procedures Name Priority Associated Diagnoses [...] on filedocumented in this encounter Care Teams Towel Sorter Relationship Specialty Start Date End Date Kiran Garvey MD [address] [place] [address] PCP - General 02/26/17 01/25/19 Kiran Garvey MD [address] [facility] [place] [address] PCP - General 03/21/15 02/25/17 Lorena Taylor MD [address] [facility] [place] [address] PCP - General Family Practice 01/26/19 03/31/21 Dante Olivarez PA [address] [place] [address] PCP - General Physician Senior Publications Specialist 04/01/21 06/09/21 Morro Doyle MD [address] [place] [address] PCP - General Internal Medicine 06/10/21 10/07/21 Nancy Alvares NP [address] [place] [address] PCP - General Nurse Practitioner 10/08/21 documented as of this encounter
--- OUTSIDE RECORDS SUMMARY | 2025-06-14 09:01 | XMS_ITS | Encounter Summary ---
Author Organization [facility] Address [address] [place] [address] Phone Care Team Providers Care Director Of Field Sales Name Role Phone Kiran Garvey MD Primary Care Provider + [phone] Kiran Garvey MD Primary Care Provider + [phone] Lorena Taylor MD Primary Care Provider + [phone] Dante Olivarez Primary Care Provider [phone] Morro Doyle MD Primary Care Provider +[phone] Nancy Alvares NP Primary Care Provider + [phone] Encounter Details Date Type Department Care Team (Latest Contact Info) Description 04/16/2006 Orders Only [facility] Scanning, Provider Social History Tobacco Use Types Packs/Day Years Used Date Smoking Tobacco: Never Assessed Comments Unknown Sex and Gender Information Value Date Recorded Sex Assigned at Not on file Legal Sex Female 9:09 PM TRAIN DRIVER Gender Identity Not on file Sexual Orientation Not on file documented as of this encounter Plan of Treatment Upcoming Encounters Date Type Department Care Team (Late st Contact Info) Description 07/11/2025 11:00 AM CDT Hospital Encounter [facility] Endoscopy [address] [place] [address] Catrachito Link MD [address] [place] [address] 07/11/2025 11:00 AM CDT - 07/11/2025 11:30 AM CDT Surgery [facility] Endoscopy [address] [address] [address] Catrcahito Link MD [address] [place] [address] COLONOSCOPY Scheduled Procedures Name Priority Associated Diagnoses [...] in this encounter Care Teams Director Of Field Sales Relationship Specialty Start Date End Date Kiran Garvey MD [address] [place] [address] PCP - General 02/26/17 01/25/19 Kiran Garvey MD [address] [place] [address] PCP - General 03/21/15 02/25/17 Lorena Taylor MD [address] [place] [address] PCP - General Family Practice 01/26/19 03/31/21 Dante Olivarez PA [address] [place] [address] PCP - General Physician Editor Book 04/01/21 06/09/21 Morro Doyle MD [address] [place] [address] PCP - General Internal Medicine 06/10/21 10/07/21 Nancy Alvares NP [address] [place] [address] PCP - General Nurse Practitioner 10/08/21 documented as of this encounter
--- OUTSIDE RECORDS SUMMARY | 2025-06-14 09:01 | XMS_ITS | Encounter Summary ---
Author Organization [facility] Address [address] [place] [address] Phone Care Team Providers Care Basketball Coach Name Role Phone Kiran Garvey MD Primary Care Provider + [phone] Kiran Garvey MD Primary Care Provider + [phone] Lorena Taylor MD Primary Care Provider + [phone] Dante Olivarez Primary Care Provider [phone] Morro Doyle MD Primary Care Provider [phone] Nancy Alvares NP Primary Care Provider + [phone] Encounter Details Date Type Department Care Team (Latest Contact Info) Description 02/10/2007 Orders Only [facility] Scanning, Provider Social History Tobacco Use Types Packs/Day Years Used Date Smoking Tobacco: Never Assessed Comments Unknown Sex and Gender Information Value Date Recorded Sex Assigned at Not on file Legal Sex Female 9:09 PM PUMP 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 Gender Identity Not on file Sexual Orientation Not on file documented as of this encounter Plan of Treatment Upcoming Encounters Date Type Department Care Team (Late st Contact Info) Description 07/11/2025 11:00 AM CDT Hospital Encounter [facility] Endoscopy [address] [place] [address] Catrachito Link MD [address] [place] [address] 07/11/2025 11:00 AM CDT - 07/11/2025 11:30 AM CDT Surgery [facility] Endoscopy [address] [address] [address] Catrachito Link MD [address] [place] [address] COLONOSCOPY Scheduled Procedures Name Priority Associated Diagnoses [...] on filedocumented in this encounter Care Teams Basketball Coach Relationship Specialty Start Date End Date Kiran Garvey MD [address] [place] [address] PCP - General 02/26/17 01/25/19 Kiran Garvey MD [address] [facility] [place] [address] PCP - General 03/21/15 02/25/17 Lorena Taylor MD [address] [facility] [place] [address] PCP - General Family Practice 01/26/19 03/31/21 Dante Olivarez PA [address] [place] [address] PCP - General Physician Cork Cutter 04/01/21 06/09/21 Morro Doyle MD [address] [place] [address] PCP - General Internal Medicine 06/10/21 10/07/21 Nancy Alvares NP [address] [place] [address] PCP - General Nurse Practitioner 10/08/21 documented as of this encounter
--- OUTSIDE RECORDS SUMMARY | 2025-06-14 09:01 | XMS_ITS | Encounter Summary ---
Author Organization [facility] Address [address] [place] [address] Phone Care Team Providers Care Head Teller Name Role Phone Kiran Garvey MD Primary Care Provider + [phone] Kiran Garvey MD Primary Care Provider + [phone] Lorena Taylor MD Primary Care Provider + [phone] Dante Olivarez Primary Care Provider [phone] Morro Doyle MD Primary Care Provider [phone] Nancy Alvares NP Primary Care Provider + [phone] Encounter Details Date Type Department Care Team (Latest Contact Info) Description 10/26/2006 Orders Only [facility] Scanning, Provider Social History Tobacco Use Types Packs/Day Years Used Date Smoking Tobacco: Never Assessed Comments Unknown Sex and Gender Information Value Date Recorded Sex Assigned at Not on file Legal Sex Female 9:09 PM DYE MAKER Gender Identity Not on file Sexual Orientation Not on file documented as of this encounter Plan of Treatment Upcoming Encounters Date Type Department Care Team (Late st Contact Info) Description 07/11/2025 11:00 AM CDT Hospital Encounter [facility] Endoscopy [address] [place] [address] Catrachito Link MD [address] [place] [address] 07/11/2025 11:00 AM CDT - 07/11/2025 11:30 AM CDT Surgery [facility] Endoscopy [address] [address] [address] Catrachito Link MD [address] [place] [address] COLONOSCOPY Scheduled Procedures Name Priority Associated Diagnoses [...] on filedocumented in this encounter Care Teams Head Teller Relationship Specialty Start Date End Date Kiran Garvey MD [address] [place] [address] PCP - General 02/26/17 01/25/19 Kiran Garvey MD [address] [facility] [place] [address] PCP - General 03/21/15 02/25/17 Lorena Taylor MD [address] [facility] [place] [address] PCP - General Family Practice 01/26/19 03/31/21 Dante Olivarez PA [address] [place] [address] PCP - General Physician Manager Math 04/01/21 06/09/21 Morro Doyle MD [address] [place] [address] PCP - General Internal Medicine 06/10/21 10/07/21 Nancy Alvares NP [address] [place] [address] PCP - General Nurse Practitioner 10/08/21 documented as of this encounter
--- OUTSIDE RECORDS SUMMARY | 2025-06-14 09:01 | XMS_ITS | Referral Summary ---
Author Organization [facility] [address] [place] [address] [address] [place] [address] Care Team Providers Care Wastewater Treatment Plant Chemist Name Role Phone Nancy Alvares NP Primary Care Provider Encounters Date Type Department Care Team Description 05/31/2025 Orders Only [facility]ology [address] [place] [address] Medical Office Building [address] [place] [address] Ayanna Venegas RN 05/25/2025 Telephone [facility] [address] [place] [address] Medical Office [address] [place] [address] Ayanna Venegas RN GI Preprocedure 05/23/2025 Telephone [facility] [address] [place] [address] Medical Office [address] [place] [address] Ayanna Venegas RN GI Preprocedure 05/23/2025 10:15 AM CDT Office Visit [facility] Cardiology [address] [place] [address] Aiden Campoverde MD Pulmonary hypertension (HCC) (Primary Dx); Palpitations; Nonrheumatic mitral valve regurgitation; Need for lipid screening; GAVIOTA (obstructive sleep apnea); Essential hypertension 05/21/2025 Orders Only [facility] [address] [place] [address] Medical Office [address] [place] [address] Bailey Merrill RN 05/18/2025 Telephone [facility] [address] [facility] Medical Office Building [address] [place] [address] Bailey Merrill RN referral for colonoscopy 05/08/2025 Telephone [facility] Cardiology at [address] [place] [address] Aiden Campoverde MD from Last 3 Months Allergies No known [...] (11/16/2022): Added automatically from request for surgery [id number] Family history of malignant neoplasm of gastrointestinal tract 11/16/2022 Overview (11/16/2022): Added automatically from request for surgery [id number] Colon cancer screening 09/17/2022 Parkinson disease 06/10/2021 Assessment & Plan (11/18/2021 4:42 PM MANAGING BROKER): Patient continues at this time on pramipexole [...] on file Legal Sex Female 9:09 PM MANAGING BROKER Gender Identity Not on file Sexual Orientation Not on file Last Filed Vital Signs Vital Sign Reading Time Taken Comments Blood Pressure 104/58 05/23/2025 10:23 AM CDT Pulse 75 05/23/2025 10:23 AM CDT Temperature 36.3 C (97.3 F) 12/19/2024 9:15 AM MANAGING BROKER Respiratory Rate 20 01/26/2025 3:50 PM MANAGING BROKER Oxygen Saturation 98% 05/23/2025 10: 23 AM CDT Inhaled Oxygen Concentration - - Weight 91.9 kg (202 lb 11.2 oz) 025 10:23 AM CDT Height 167.6 cm (5' 6) 05/23/2025 10:2 3 AM CDT Body Mass Index 32.72 05/23/2025 10:23 AM CDT Plan of Treatment Upcoming Encounters Date Type Department Care Team (Late st Contact Info) Description 07/11/2025 11:00 AM CDT Hospital Encounter [facility] Endoscopy [address] [place] [address] Catrachito Link MD [address] [place] [address] 07/11/2025 11:00 AM CDT - 07/11/2025 11:30 AM CDT Surgery [facility] Endoscopy [address] [place] [address] Catrachito Link MD [address] [place] [id number] COLONOSCOPY Scheduled Procedures Name Priority Associated Diagnoses Date/Ti me COLONOSCOPY Lower GI bleed LUQ pain Abnormal finding on imaging Blood in stool Bowel wall thickening 07/11/2025 11:00 AM CDT COLONOSCOPY Colon cancer screening Procedures Procedure Name Priority Date/Time Associated Diagnosis Comments POCT LIPID PANEL Routine 05/23/2025 10:4 8 AM CDT Need for lipid screening COLONOSCOPY 12/19/2024 8:53 AM MANAGING BROKER from Last 3 Months or Most Recently [...] Final Result * Colonoscopy (12/19/2024 8:53 AM MANAGING BROKER) Anatomical Region Laterality Modality Other Narrative Procedure Note Catrachito Link MD - 12/19/2024 8:53 AM [facility]ST ENDOSCOPY LAB Patient Name: Bijal Kyle Procedure Date: 12/19/2024 8:53 AM Date of : 1965 Admit Type: Outpatient Age: 59 Gender: Female Attending MD: Catrachito Link M.D. Room: [facility] ENDOSCOPY ROOM 04 Note Status: Finalized [...] The scope was passed under direct vision.The [id number] was introduced through the anusand advanced to [...] Most Recently Relevant to Health Maintenance Insurance [facility] Advance Directives For more information, please contact: [phone] * Full Code (Latest Code Status on File) Date Activated Date Inactivated Comments 12/19/2024 7:45 AM 12/19/2024 6:30 PM * Full Code Date Activated Date Inactivated Comments 11/18/2022 11:43 AM 11/18/2022 5:30 PM Care Teams Wastewater Treatment Plant Chemist Relationship Specialty Start Date End Date Nancy Alvares NP [address] [place] [address] PCP - General Nurse Practitioner 10/08/21
--- OUTSIDE RECORDS SUMMARY | 2025-06-14 09:02 | XMS_ITS | Encounter Summary ---
Author Organization [facility] Address [address] [place] [address] Phone Care Team Providers Care Spiral Runner Name Role Phone Lorena Taylor MD Primary Care Provider +- [phone] Dante Olivarez Primary Care Provider [phone] Morro Doyle MD Primary Care Provider [phone] Nancy Alvares NP Primary Care Provider + [phone] Encounter Details Date Type Department Care Team [...] on file Legal Sex Female 9:09 PM EDUCATION SITE MANAGER Gender Identity Not on file Sexual Orientation Not on file documented as of this encounter Plan of Treatment Upcoming Encounters Date Type Department Care Team (Late st Contact Info) Description 07/11/2025 11:00 AM CDT Hospital Encounter [facility] Endoscopy [id number] [address] [address] Catrachito Link MD [address] [place] [address] 07/11/2025 11:00 AM CDT - 07/11/2025 11:30 AM CDT Surgery [facility] Endoscopy [id number] [address] [address] Catrachito Link MD [address] [place] [address] COLONOSCOPY Scheduled Procedures Name Priority Associated Diagnoses [...] on filedocumented in this encounter Care Teams Spiral Runner Relationship Specialty Start Date End Date Lorena Taylor MD PCP - General Family Practice 01/26/19 03/31/21 Dante Olivarez PA [address] [place] [address] PCP - General Physician Store Custodian 04/01/21 06/09/21 Morro Doyle MD [address] [place] [address] PCP - General Internal Medicine 06/10/21 10/07/21 Nancy Alvares NP [address] [place] [address] PCP - General Nurse Practitioner 10/08/21 documented as of this encounter
--- OUTSIDE RECORDS SUMMARY | 2025-06-14 09:02 | XMS_ITS | Data Portability ---
Author Organization [place] [facility], Main Office Address [address] [place] [address] Assessment Encounter Date Assessment Date Assessment LastModified by Organization Details LastModified Time 05/02/2025 05/02/2025 59-year-old female presents for evaluation of her right hip and right knee. She had a fall couple months ago in February when the leg folded behind her. She denies having any previous injuries or issues. She saw her PCP and got imaging workup which demonstrated hip arthritis and degenerative tear of the meniscus. She has been taking ibuprofen without significant improvement. she denies any other medical problems. Review of systems per patient questionnaire Physical exam: She has tenderness over the anterior groin and posterior buttocks. Minimal tenderness over the lateral hip. She has no pain with logroll. Flexion 120, internal rotation 20, external rotated 40. She does have pain and some clicking of the hip. She has positive Stinchfield. With regards her knee, she has tenderness palpation of the medial and lateral joint line. Range of motion 0-130, pain at terminal flexion. Positive Makenna's. Stable ligaments. X-rays of the knee were reviewed, demonstrating moderate degenerative changes with medial joint space narrowing, osteophytes. MRI demonstrates the degenerative changes with a mediolateral degenerative tears and medial extrusion. X-rays of the hip were reviewed, demonstrating moderate degenerative changes. MRI of the Hip demonstrates degenerative changes with chondromalacia and cystic changes of the acetabulum. She has hip arthritis and degenerative meniscus tears of the knee. we will begin with conservative management with physical therapy for both as well as a course of meloxicam. we discussed this would be step 1, hence the next step would be cortisone injections if they failed to have good effect. She states that because of insurance reasons, she is losing insurance at the end the month and wants to get as much done as possible prior to then. thus, we will order a cortisone injection for the hip. We also discussed a cortisone injection for the knee, which would be the next step. She inquired about surgery for the meniscus tears in her knee. We discussed that typically we would try conservative measures 1st including anti-inflammatori es, physical therapy, and cortisone injection. However, given her insurance situation where she loses coverage as and the months, as well as her acute injury, where she denies having any issues prior to this fall, she wants to proceed with surgery directly. We had extensive discussion where I would still recommend conservative measures 1st, she agreed to try the PT anti-inflammatori es still, but we will work on getting approval for the surgery that way if she does not have any improvement in a few weeks she would be ready to go for that. Risks, benefits, and alternatives to surgery were discussed with the patient. Risks include but are not limited to pain, stiffness, infection, bleeding, blood clot, injury to other structures including nerves or blood vessels, need for future surgery, and anesthesia risks. We discussed the goal of surgery is to improve symptoms but there is no guarantee of improvement and it is possible the patient's condition is worse after surgery. Patient agreed and would like to proceed. [email or web address] Not available 05/02/2025 11:05:27 06/04/2025 06/04/2025 HPI: 59 year old female presents today for postop follow up after undergoing right knee arthroscopy, partial medial and lateral meniscectomy on 05/22/25. She is approximately 2 weeks postop. She reports intermittent cramping behind the knee and calf and stiffness. She feels a lot of tightness in her quadriceps when she flexes her knee. Currently rates her pain 2/10, but states she just took a hydrocodone. Pain is worse at night and when she rolls over in bed, it feels like her knee is twisting. Pain is aggravated by prolonged use. Physical Exam: General: Normal appearance. No acute distress. Inspection: Incision is clean dry and intact. No signs or symptoms of infection. Palpation: Nontender with palpitation around the incision site. ROM: Full ROM Sensation: Lower extremity sensation intact. Assessment & Plan: Sutures removed and steri-strips placed. Advised to wait 1-2 weeks before submerging, only when the incision is completely healed Rx for Hydrocodone. We discussed that she needs to switch to only anti-inflammatori es once she runs out of the hydrocodone. Rx for ibuprofen 800mg. Discussed taking this with food and being careful taking this medication for long-term use, especially since she was in the ER in April for a lower GI bleed. PT to work on ROM and strength. Follow Up: 4 weeks All questions were answered. Patient verbalized understanding of treatment plan [email or web address] Not available 06/04/2025 19:37:56 Plan of Treatment Reminders Order Date Submit Date Provider Last Modified By Organization Details Last Modified Time Details Appointments Any 5 2024 10:45A M Cody Hilario MD Not available Not available Not available Lab None recorded. Referral physical therapist referral - Please schedule pt for R knee. post meniscect vern. Thanks 2024 025 [facility], [address], [place], [address], 06/05/2025 08:52:30 Procedures None recorded. Surgeries None recorded. Imaging XR, hip + pelvis, unilatera l 2024 025 [facility] [place], [address], [place], [address], 05/02/2025 13:35:10 XR, knee, 3 view 2024 025 [facility] [place], [address], [place], [address], 05/02/2025 13:34:07 Medication Orders ibuprofen 800 mg tablet 2024 025 [email or web address] [id number], [address] [place] [address], [phone], 06/04/2025 19:38:46 hydrocodo ne 5 mg-acetam inophen 325 mg tablet 2024 025 [id number], [address], [place], [place], [phone], 06/04/2025 16:09:28 Patient TargetsNo targets recorded. Patient InstructionsNo instructions recorded. Reason for Referral Physical Therapist Referral for Pain of right knee joint R knee Please schedule pt for R knee. post meniscectomy. Thanks Referring Physician: Dayana Castro, Orthopedic Surgery, Encounter Date: 06/04/2025 Results Created Date Observation Date Name Description Value Unit Range Abnormal Flag Note LastModifiedBy Organization Detail LastModifiedTime 05/02/20 25 XR, hip + pelvi s, unila teral No observ ation record ed. [facility] [place] [address] [facility] [address], [place], [address], 05/02/2025 09:44:26 05/02/20 25 XR, knee, 3 view No observ ation record ed. [facility] [place] [address] [facility] [address], [address], 05/02/2025 09:44:35 05/03/20 25 04/19/2025 MRI, hip, w/o contr ast No observ ation record ed. [email or web address] Not Available 05/03 15:38:20 05/03/20 25 04/19/2025 MRI, knee, w/o contr ast No observ ation record ed. [email or web address] Not Available 05/03 15:41:23 Result Notes None recorded. Problems Name Problem SNOMED Code Status Onset Date Resolution Date Notes Provider Name and Address Organization Details Recorded Time Hypertensi ve disorder 02985505 Active 2018 Not Available [employer] 3 21:17:44 Pain of right knee joint 9072547992888 00 Active 2024 SOHEILA Cerda [place] [email or web address] [facility] 5 09:44:07 Pain of hip region 26824488 Active 2024 SOHEILA Cerda [place] [facility] 09:44:19 Notes:Pt states one of her v story in her heart leak mildly Problem Notes None recorded. Procedures Surgical History Date Name Laterality Status Provider Name and Address Organization Details Recorded Time section completed SOHEILA Cerda - [facility] [email or web address] [facility] 05/02/2025 09:53:37 Imaging Results None recorded. Procedure Notes None recorded. Medical Equipment None Reported. Allergies No known drug allergies Medications Name Sig Start Date Stop Date Status Note LastModified by Organization Details LastModified Time losartan 50 mg tablet Take 1 tablet every day by oral route. active Not Available Not Available No t Available azithromyci n 250 mg tablet 05/02 completed Not Available Not Available Not Available indapamide 2.5 mg tablet Take 2 tablets every day by oral route. active Not Available Not Available No t Available ibuprofen 800 mg tablet Take 1 tablet 3 times a day by oral route. 2024 active Not Available Not Available Not Avai lable fluconazole 150 mg tablet 07/04 completed Not Available Not Available Not Available benzonatate 200 mg capsule TAKE 1 CAPSULE BY MOUTH THREE TIMES DAILY NEEDED FOR COUGH 05/02 completed Not Available Not Available Not Available hydrocodone 5 mg-acetamin ophen 325 mg tablet Take 1 tablet every 6 hours by oral route. 2024 active Not Available Not Available Not Avai lable phenazopyri dine 200 mg tablet 07/04 completed Not Available Not Available Not Available prednisone 20 mg tablet TAKE 1 TABLET BY MOUTH TWICE DAILY FOR 5 DAYS 05/02 completed Not Available Not Available Not Available ciprofloxac in 500 mg tablet 07/04 completed Not Available Not Available Not Available sulfamethox azole 800 mg-trimetho prim 160 mg tablet TAKE 1 TABLET BY MOUTH TWICE DAILY FOR 7 DAYS 05/02 completed Not Available Not Available Not Available tramadol 50 mg tablet 07/04 completed Not Available Not Available Not Available acetaminoph en 500 mg tablet TAKE 2 TABLETS BY MOUTH EVERY 6 HOURS NEEDED FOR PAIN active Not Available Not Available No t Available amoxicillin 875 mg tablet 07/04 completed Not Available Not Available Not Available lorazepam 0.5 mg tablet TAKE 1 TABLET BY MOUTH EVERY 8 HOURS NEEDED FOR ANXIETY active Not Available Not Available No t Available triamcinolo ne acetonide 0.1 % topical ointment APPLY TOPICALLY TO THE AFFECTED AREA THREE TIMES DAILY active Not Available Not Available No t Available codeine 10 mg-guaifene sin 100 mg/5 mL oral liquid 07/04 completed Not Available Not Available Not Available ergocalcife rol (vitamin D2) 1,250 mcg (50,000 unit) capsule TAKE 1 CAPSULE BY MOUTH EVERY 7 DAYS active Not Available Not Available No t Available cefuroxime axetil 500 mg tablet 07/04 completed Not Available Not Available Not Available methylpredn isolone 4 mg tablets in a dose pack 07/04 completed Not Available Not Available Not Available hydrocodone 10 mg-chlorphe niramine 8 mg/5 mL oral susp extend.rel 12hr SHAKE LIQUID AND TAKE 2.5 TO 5 ML BY MOUTH EVERY 12 HOURS NEEDED FOR COUGH 05/02 completed Not Available Not Available Not Available albuterol sulfate HFA 90 mcg/actuati on aerosol inhaler INHALE 1-2 PUFFS BY MOUTH EVERY 4-6 HOURS NEEDED SHORTNESS OF BREATH 05/02 completed Not Available Not Available Not Available ondansetron 4 mg disintegrat ing tablet active Not Available Not Available N ot Available doxycycline hyclate 100 mg tablet 07/04 completed Not Available Not Available Not Available naproxen 500 mg tablet 07/04 completed Not Available Not Available Not Available spironolact one 50 mg tablet 07/04 completed Not Available Not Available Not Available neomycin-po lymyxin-hyd rocort 3.5 mg-10,000 unit/mL-1 % ear drops,susp 07/04 completed Not Available Not Available Not Available eletriptan 40 mg tablet Take 1 tablet as needed by oral route. active Not Available Not Available No t Available nitrofurant oin monohydrate /macrocryst als 100 mg capsule 05/02 completed Not Available Not Available Not Available Excedrin Extra Strength TAKE 1 TAB EVERY MORNING 2018 active Not Available Not Available Not Avai lable cholecalcif shannon (vitamin D3) 1,250 mcg (50,000 unit) capsule TAKE 1 CAPSULE BY MOUTH 1 TIME A WEEK active Not Available Not Available No t Available Afluria Quad [id number] (PF) 60 mcg (15 mcg x 4)/0.5 mL IM syringe ADM 0.5ML IM UTD 05/02 completed Not Available Not Available Not Available Vitals Date Recorded Body height Body mass index (BMI) Body weight Provider Name and Address Organization Details Last Updated DateTime 05/02/2025 167.64 cm 31.3 kg/m2 41425.92 g Varsha Kim CNA [facility] 05/02/2025 09:50:50 Date Recorded Body height Provider Name an d Address Organization Details Last Updated DateTime 06/04/2025 167.64 cm Aura Chaparro [facility] 06/04/2025 15:26:24 Social History Question Answer Notes LastModified by Organizat ion Details LastModified Time Tobacco Smoking Status Never Smoker Varsha Kim CNA rosa [facility] [employer] 05/02/2025 09:53:15 What Was The Date Of Your Most Recent Tobacco Screening? 06/04/2025 [email or web address] Information not available 06/04/2025 Sex: Unknown Functional Status Question Answer Note LastModified by Organization D etails LastModified Time What is your level of alcohol consumption? None Information not available 05/02/2025 Mental Status None recorded. Family History Relationship Description Onset Age of this Age Resolved Age Notes LastModified by Organization Details LastModified Time Mother Hypertensive disorder Not available 2024 09:53:04 Maternal Grandmother Hypertensive disorder Not available 2024 09:53:05 Medical History Condition Response HYPERTENSION Y Gynecological HistoryNo gynecological history recorded. Obstetrics History GPAL:G 0 P 0 0 0 0 Immunizations Vaccine Type Date Status Note Provider Nam e and Address Organization Details Recorded Time Influenza, split virus, quadrivalent, preservative 8 completed Not Available [employer] 01/27/2023 21:18:27 Past Encounters Encounter ID Performer Location Encounter Start Date Encounter Closed Date Diagnosis/Indication Diagnosis SNOMED-CT Code Diagnosis ICD10 Code Diagnosis Note [id number] Cody Hilario MD [facility] [place] [address] [place] [address] 05/02/2025 09:33:22 05/02/2025 10:54:33 Pain of right knee joint 4581993438 18800 M25.561 Pain of hip region 07625 002 M25.603 [id number] Cody Hilario MD [facility] [place] [address] [facility] [address] [place] [address] 06/04/2025 15:21:32 06/04/2025 15:54:35 Pain of right knee joint 9384754487 85445 M25.561 History of operative procedure on knee 533091089 Z98.890 Health Concerns Section Related Observation LastModified by Organization Detai ls LastModified Time None Recorded Concern Status LastModified by Organization Details LastModified Time None Recorded Advance Directives Directive None Recorded Payers Insurance Date Sequence Insurance Name Policy Number Policy Duarte Covered Member ID Duarte Member ID Guarantor Name 04/30/2025 1 [facility] [id number] Song Kyle [id number] Bijal Kyle 06/04/2025 1 [facility] [id number] Song Kyle [id number] Bijal Kyle 06/04/2025 1 [facility] [id number] Bijal Kyle [id number] Bijal Kyle OBGyn Episode No OBEpisode recorded.
--- OUTSIDE RECORDS SUMMARY | 2025-06-14 09:02 | XMS_ITS | Encounter Summary ---
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 Gender Identity Not on file Sexual Orientation Not on file documented as of this encounter Plan of Treatment Upcoming Encounters Date Type Department Care Team (Late st Contact Info) Description 07/11/2025 11:00 AM CDT Hospital Encounter [facility]oscopy [id number] [place] [address] Catrachito Link MD [address] [place] [address] 07/11/2025 11:00 AM CDT - 07/11/2025 11:30 AM CDT Surgery [facility] [address] [place] [address] Catrachito Link MD [address] [place] [address] COLONOSCOPY Scheduled Procedures Name Priority Associated Diagnoses [...] on filedocumented in this encounter Care Teams Port Captain Relationship Specialty Start Date End Date Nancy Alvares NP [address] [place] [address] PCP - General Nurse Practitioner 10/08/21 documented as of this encounter
--- OUTSIDE RECORDS SUMMARY | 2025-06-14 09:02 | XMS_ITS | Encounter Summary ---
Author Organization [facility] Address [address] [place] [address] Phone Care Team Providers Care Thread Checker Name Role Phone Kiran Garvey MD Primary Care Provider + [phone] Kiran Garvey MD Primary Care Provider + [phone] Lorena Taylor MD Primary Care Provider + [phone] Dante Olivarez Primary Care Provider [phone] Morro Doyle MD Primary Care Provider [phone] Nancy Alvares NP Primary Care Provider + [phone] Encounter Details Date Type Department Care Team (Latest Contact Info) Description 03/19/2015 Orders Only [facility] Scanning, Provider Social History Tobacco Use Types Packs/Day Years Used Date Smoking Tobacco: Never Assessed Comments Unknown Sex and Gender Information Value Date Recorded Sex Assigned at Not on file 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 Gender Identity Not on file Sexual Orientation Not on file documented as of this encounter Plan of Treatment Upcoming Encounters Date Type Department Care Team (Late st Contact Info) Description 07/11/2025 11:00 AM CDT Hospital Encounter [facility] Endoscopy [id number] [place] [address] Catrachito Link MD [address] [place] [address] 07/11/2025 11:00 AM CDT - 07/11/2025 11:30 AM CDT Surgery [facility] Endoscopy [address] [address] [address] Catrachito Link MD [address] [place] [address] COLONOSCOPY Scheduled Procedures Name Priority Associated Diagnoses [...] on filedocumented in this encounter Care Teams Thread Checker Relationship Specialty Start Date End Date Kiran Garvey MD [address] [place] [address] PCP - General 02/26/17 01/25/19 Kiran Garvey MD [address] [place] [address] PCP - General 03/21/15 02/25/17 Lorena Taylor MD [address] [place] [address] PCP - General Family Practice 01/26/19 03/31/21 Dante Olivarez PA [address] [place] [address] PCP - General Physician Tin Whiz Machine Operator 04/01/21 06/09/21 Morro Doyle MD [address] [place] [address] PCP - General Internal Medicine 06/10/21 10/07/21 Nancy Alvares NP [address] [place] [address] PCP - General Nurse Practitioner 10/08/21 documented as of this encounter
--- OUTSIDE RECORDS SUMMARY | 2025-06-14 09:02 | XMS_ITS | Encounter Summary ---
Author Organization [facility] Address [address] [place] [address] Phone Care Team Providers Care Data Warehouse Developer Name Role Phone Kiran Garvey MD Primary Care Provider + [phone] Kiran Garvey MD Primary Care Provider + [phone] Lorena Taylor MD Primary Care Provider + [phone] Dante Olivarez Primary Care Provider [phone] Morro Doyle MD Primary Care Provider [phone] Nancy Alvares NP Primary Care Provider + [phone] Encounter Details Date Type Department Care Team (Latest Contact Info) Description 04/13/2005 Orders Only [facility] Scanning, Provider Social History Tobacco Use Types Packs/Day Years Used Date Smoking Tobacco: Never Assessed Comments Unknown Sex and Gender Information Value Date Recorded Sex Assigned at Not on file Legal Sex Female 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 Gender Identity Not on file Sexual Orientation Not on file documented as of this encounter Plan of Treatment Upcoming Encounters Date Type Department Care Team (Late st Contact Info) Description 07/11/2025 11:00 AM CDT Hospital Encounter [facility] Endoscopy [address] [place] [place] [address] Catrachito Link MD [address] [place] [address] 07/11/2025 11:00 AM CDT - 07/11/2025 11:30 AM CDT Surgery [facility] Endoscopy [address] [address] [address] Catrachito Link MD [address] [place] [address] COLONOSCOPY Scheduled Procedures Name Priority Associated Diagnoses [...] on filedocumented in this encounter Care Teams Data Warehouse Developer Relationship Specialty Start Date End Date Kiran Garvey MD [address] [place] [address] PCP - General 02/26/17 01/25/19 Kiran Garvey MD [address] [facility] [place] [address] PCP - General 03/21/15 02/25/17 Lorena Taylor MD [address] [facility] [place] [address] PCP - General Family Practice 01/26/19 03/31/21 Dante Olivarez PA [address] [place] [address] PCP - General Physician Fee Clerk 04/01/21 06/09/21 Morro Doyle MD [address] [place] [address] PCP - General Internal Medicine 06/10/21 10/07/21 Nancy Alvares NP [address] [place] [address] PCP - General Nurse Practitioner 10/08/21 documented as of this encounter
--- OUTSIDE RECORDS SUMMARY | 2025-06-14 09:02 | XMS_ITS | Clinical Summary ---
Author Organization [facility] Address [address] [place] [address] Care Team Providers Care Housefellow Name Role Phone Unavailable Primary Care Provider Unavailabl e Source Comments [facility],non-owned Affiliates and Associated Physician Practices is amultiple site organization consisting of ambulatory clinics and hospital sitesin [place], [place], [place] and [place]. This disclosure is being madepursuant to the Care Everywhere program and may not contain all information available regarding this patient. 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
--- OUTSIDE RECORDS SUMMARY | 2025-06-14 09:02 | XMS_ITS | Encounter Summary ---
Author Organization [facility] Address [address] [place] [address] Phone Care Team Providers Care Safety Instructor Name Role Phone Morro Doyle MD Primary Care Provider [phone] Nancy Alvares NP Primary Care Provider + [phone] Encounter Details Date Type Department Care Team [...] on file Legal Sex Female 9:[address]IO TECHNICIAN Gender Identity Not on file Sexual Orientation Not on file documented as of this encounter Plan of Treatment Upcoming Encounters Date Type Department Care Team (Late st Contact Info) Description 07/11/2025 11:00 AM CDT Hospital Encounter [facility] Endoscopy [address] [address] [address] Catrachito Link MD [address] [place] [address] 07/11/2025 11:00 AM CDT - 07/11/2025 11:[address] [facility] Endoscopy [address] [address]amy [address] Catrachito Link MD [address] [place] [address] COLONOSCOPY Scheduled Procedures Name Priority Associated Diagnoses [...] on filedocumented in this encounter Care Teams Safety Instructor Relationship Specialty Start Date End Date Morro Doyle MD [address] [place] [address] PCP - General Internal Medicine 06/10/21 10/07/21 Nancy Alvares NP [address] [place] [address] PCP - General Nurse Practitioner 10/08/21 documented as of this encounter
--- OUTSIDE RECORDS SUMMARY | 2025-06-14 09:02 | XMS_ITS | Encounter Summary ---
Author Organization [facility] Address [address] [place] [address] Phone Care Team Providers Care Blood Bank Booking Clerk Name Role Phone Kiran Garvey MD Primary Care Provider + [phone] Kiran Garvey MD Primary Care Provider + [phone] Lorena Taylor MD Primary Care Provider + [phone] Dante Olivarez Primary Care Provider [phone] Morro Doyle MD Primary Care Provider [phone] Nancy Alvares NP Primary Care Provider + [phone] Encounter Details Date Type Department Care Team (Latest Contact Info) Description 02/27/2011 Orders Only [facility] Scanning, Provider Social History Tobacco Use Types Packs/Day Years Used Date Smoking Tobacco: Never Assessed Comments Unknown Sex and Gender Information Value Date Recorded Sex Assigned at Not on file 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 Gender Identity Not on file Sexual Orientation Not on file documented as of this encounter Plan of Treatment Upcoming Encounters Date Type Department Care Team (Late st Contact Info) Description 07/11/2025 11:00 AM CDT Hospital Encounter [facility] Endoscopy [address] [place] [address] [address] Catrachito Link MD [address] [place] [address] 07/11/2025 11:00 AM CDT - 07/11/2025 11:30 AM CDT Surgery [facility] Endoscopy [address] SH[address]amy [address] Catrachito Link MD [address] [place] [address] COLONOSCOPY Scheduled Procedures Name Priority Associated Diagnoses [...] on filedocumented in this encounter Care Teams Blood Bank Booking Clerk Relationship Specialty Start Date End Date Kiran Garvey MD [address] [place] [address] PCP - General 02/26/17 01/25/19 Kiran Garvey MD [address] [place] [address] PCP - General 03/21/15 02/25/17 Lorena Taylor MD [address] [facility] [place] [address] PCP - General Family Practice 01/26/19 03/31/21 Dante Olivarez PA [address] [place] [address] PCP - General Physician Printed Circuit Boards Pinner 04/01/21 06/09/21 Morro Doyle MD [address] [place] [address] PCP - General Internal Medicine 06/10/21 10/07/21 Nancy Alvares NP [address] [place] [address] PCP - General Nurse Practitioner 10/08/21 documented as of this encounter
--- OUTSIDE RECORDS SUMMARY | 2025-06-14 09:02 | XMS_ITS | Encounter Summary ---
Author Organization [facility] Address [address] [place] [address] Care Team Providers Care Sdc Teacher Name Role Phone Unavailable Primary Care Provider Unavailabl e Encounter Details Date Type Department Care Team (Late st Contact Info) Description 10/12/2024 Lab Requisition [facility] - DermPath Lab [address] [place] [address] Bharati Jason DO [address] [facility] [address] [place] [address] Social History Tobacco Use Types Packs/Day Years Used Date Smoking Tobacco: Never Assessed Comments Unknown Sex and Gender Information Value Date Recorded Sex Assigned at Not on file Legal Sex Female 6:37 AM INVESTIGATIONS CHIEF Gender Identity Not on file Sexual Orientation Not on file documented as of this encounter Plan of Treatment Not on file documented as of this encounter Procedures Procedure Name Priority Date/Time Associated Diagnosis Comments DERMATOPATHOLOGY Routine 10/12/2024 2:07 PM INVESTIGATIONS CHIEF documented in this encounter Results * DERMATOPATHOLOGY (10/12/2024 2:07 PM INVESTIGATIONS CHIEF) Case Report Dermatopathology Report Case: [id number] Authorizing Provider: Bharati Jason DO Collected: 10/12/2024 02:07 PM Ordering Location: [facility] - Received: 10/13/2024 11:00 AM DermPath Lab Pathologist: Kerry Garcia MD Specimen: Skin, left medial cheek 4 12:27 PM INVESTIGATIONS CHIEF DERMATOPATHOLOGY LABORATORY Final Diagnosis Specimen A. SKIN, left medial cheek: ACTINIC KERATOSIS (L57.0) 4 12:27 PM INVESTIGATIONS CHIEF DERMATOPATHOLOGY LABORATORY at [address] [facility] Clinical History R/O BCC 12:27 PM [facility] DERMATOPATHOLOGY LABORATORY Gross Description Specimen A: Received is one formalin filled container labeled with the patient's name and designated left medial cheek. The specimen consists of a shave biopsy measuring 4x2x1 mm. Jar 0. 12:27 PM [facility] DERMATOPATHOLOGY LABORATORY Microscopic Description Specimen A. SKIN, left medial cheek: There is focal parakeratosis. The lower half of the epidermis shows disorderly maturation of keratinocytes with nuclear pleomorphism. 12:27 PM [facility] DERMATOPATHOLOGY LABORATORY Disclaimer An external and internal positive and negative controls are appropriate for the histochemical, immunohistochemical and immunofluorescence stain(s) in this case (if any), except where stated explicitly. The performance characteristics of the stain(s) cited in this report were developed and its performance characteristic determined by the Dermatopathology Laboratory at [facility], directed by Dr. Pebbles Leavitt. These tests need not be, and therefore are not, approved by the [place] Food and Drug Administration. The tests are used for clinical purposes. Billing Codes Specimen Charges Stain Charges 72273 1 4 12:27 PM [facility] DERMATOPATHOLOGY LABORATORY Embedded Images 12:27 PM [facility] DERMATOPATHOLOGY LABORATORY Pathology/Cytolo gy TISSUE SPECIMEN FROM SKIN / Unknown 10/12/2024 2:07 PM INVESTIGATIONS CHIEF 10/13/2024 11:00 AM INVESTIGATIONS CHIEF us Bharati Jason DO LAB - PATHOLOGY/CYTOLOGY ORDERABLES Final Result DERMATOPATHOLOGY LABORATORY [facility] - Department of Dermatology [address], [address] [phone] documented in this encounter Visit Diagnoses Not on filedocumented in this encounter
--- OUTSIDE RECORDS SUMMARY | 2025-06-14 09:02 | XMS_ITS | Patient Health Record ---
Author Organization [facility] Address [address] [place], [place] [address] Care Team Providers Care Nurse Coordinator Name Role Phone ANDREY GLASS Unavailable [phone] Nancy Alvares Unavailable Unavailable Reason For Referral No Information Plan Of Treatment No Information Insurance Providers Payer Name Payer Address Payer Phone Subscriber Number Group Number Insured Name Patient Relationship to Insured Coverage Start Date Coverage End Date [facility] [address] [address] [place] [address] [id number] RYAN DOUGLAS Spouse - patient is the spouse of the insured
--- OUTSIDE RECORDS SUMMARY | 2025-06-14 09:02 | XMS_ITS | Patient Health Record ---
Author Organization [facility] Address [address] [facility] [address] [place] [address] Care Team Providers Care Director Of Compliance Name Role Phone Gopal Jo Unavailable [phone] Reason For Referral No Information Medications Medication SIG (Take, Route, Frequency, Duration) Notes Start Date End Date Status DULoxetine HCl 30 MG Oral Active COVID-19 Antibody Test In Vitro *[facility] and Interaction Alerts* Active Gabapentin 300 MG Oral Ac tive Nitrofurantoin Monohyd Macro 100 MG Oral Active ELETRIPTAN HBR 40 mg Oral *[facility] and Interaction Alerts* Active LORazepam 0.5 MG Oral Act devika Ondansetron HCl 4 MG Oral Active Pramipexole Dihydrochloride 0.25 MG Oral Acti ve Losartan Potassium 50 MG Oral Active Spironolactone 100 MG Oral Active Indapamide 2.5 mg Oral Ac tive Cefuroxime Axetil 250 MG Oral Active Hydrocod Polst-CPM Polst ER 10-8 MG/5ML Oral Active Plan Of Treatment No Information Insurance Providers Payer Name Payer Address Payer Phone Subscriber Number Group Number Insured Name Patient Relationship to Insured Coverage Start Date Coverage End Date [facility] [address] [place] [address] [phone] [id number] LUZ DOUGLAS Self - patient is the insured
--- OUTSIDE RECORDS SUMMARY | 2025-06-14 09:02 | XMS_ITS | Encounter Summary ---
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 Gender Identity Not on file Sexual Orientation Not on file documented as of this encounter Plan of Treatment Upcoming Encounters Date Type Department Care Team (Late st Contact Info) Description 07/11/2025 11:00 AM CDT Hospital Encounter [facility] Endoscopy [address] [address] [address] Catrachito Link MD [address] [place] [address] 07/11/2025 11:00 AM CDT - 07/11/2025 11:30 AM CDT Surgery [facility] Endoscopy [address] [address]amy [address] Catrachito Link MD [address] [place] [address] COLONOSCOPY Scheduled Procedures Name Priority Associated Diagnoses [...] on filedocumented in this encounter Care Teams Front End Developer Relationship Specialty Start Date End Date Morro Doyle MD [address] [place] [address] PCP - General Internal Medicine 06/10/21 10/07/21 Nancy Alvares NP [address] [place] [address] PCP - General Nurse Practitioner 10/08/21 documented as of this encounter
--- OUTSIDE RECORDS SUMMARY | 2025-06-14 09:02 | XMS_ITS | Encounter Summary ---
Author Organization [facility] Address [address] [place] [address] Phone Care Team Providers Care Environmental Compliance Officer Name Role Phone Kiran Garvey MD Primary Care Provider + [phone] Kiran Garvey MD Primary Care Provider + [phone] Lorena Taylor MD Primary Care Provider + [phone] Dante Olivarez Primary Care Provider [phone] Morro Doyle MD Primary Care Provider [phone] Nancy Alvares NP Primary Care Provider + [phone] Encounter Details Date Type Department Care Team (Latest Contact Info) Description 02/27/2015 Orders Only [facility] Scanning, Provider Social History Tobacco Use Types Packs/Day Years Used Date Smoking Tobacco: Never Assessed Comments Unknown Sex and Gender Information Value Date Recorded Sex Assigned at Not on file Legal Sex Female 9:09 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 TABLE 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 Gender Identity Not on file Sexual Orientation Not on file documented as of this encounter Plan of Treatment Upcoming Encounters Date Type Department Care Team (Late st Contact Info) Description 07/11/2025 11:00 AM CDT Hospital Encounter [facility] Endoscopy [address] [place] [address] Catrachito Link MD [address] [place] [address] 07/11/2025 11:00 AM CDT - 07/11/2025 11:30 AM CDT Surgery [facility] Endoscopy [address] [address] [address] Catrachito Link MD [address] [place] [address] COLONOSCOPY Scheduled Procedures Name Priority Associated Diagnoses [...] on filedocumented in this encounter Care Teams Environmental Compliance Officer Relationship Specialty Start Date End Date Kiran Garvey MD [address] [place] [address] PCP - General 02/26/17 01/25/19 Kiran Garvey MD [address] [facility] [place] [address] PCP - General 03/21/15 02/25/17 Lorena Taylor MD [address] [facility] [address] PCP - General Family Practice 01/26/19 03/31/21 Dante Olivarez PA [address] [place] [address] PCP - General Physician Brim Pouncing Machine Operator 04/01/21 06/09/21 Morro Doyle MD [address] [place] [address] PCP - General Internal Medicine 06/10/21 10/07/21 Nancy Alvares NP [address] [place] [address] PCP - General Nurse Practitioner 10/08/21 documented as of this encounter
[2025-06-14 09:41] LABS: Hematocrit 40.6 % (37.0-47.0); Hemoglobin 13.1 g/dL (12.0-15.0); Immature Granulocyte Percent A 0.4 % (0-0.5); Lymphocytes Absolute Auto 2.12 K/mm3 (0.9-3.2); Mean Corpuscular HGB Conc 32.3 g/dl (32-36); Mean Corpuscular Hemoglobin 29.8 pg (26-34); Mean Corpuscular Volume 92.3 fl (80-100); Nucleated Red Blood Cells Absolute Auto 0.000 K/mm3 (0.0-0.012); Nucleated Red Blood Cells Perc 0.0 % (0.0-0.2); Platelet Count Result 330 k/mm3 (150-375); Red Blood Count 4.40 M/mm3 (4.2-5.4); White Blood Count 5.6 K/mm3 (4.5-10.0)
[2025-06-14 10:04] LABS: Alanine Aminotransferase 33 U/L (6-35); Albumin Level 4.4 g/dL (3.5-5.1); Alkaline Phosphatase 93 U/L (38-126); Anion Gap 7 mmol/L (4-12); Aspartate Amino Transferase 34 U/L (14-36); Bilirubin,Total 1.1 mg/dL (0.2-1.3); Blood Urea Nitrogen 23 mg/dL (7-17); Calcium 9.8 mg/dL (8.4-10.2); Carbon Dioxide 32 mmol/L (22-30); Chloride 101 mmol/L (98-107); Estimated Glomerular Filt Rate > 60; Glucose 93 mg/dL (65-110); Potassium 3.8 mmol/L (3.4-5.0); Sodium 140 mmol/L (137-145); Total Protein 7.7 g/dL (6.3-8.2)
== END 2025-06-14 08:51 | disposition home or self-care (01) ==
PROVIDERS: PCP Nurse Practitioner Family; Visit Provider Nurse Practitioner Family
DX: M62.81 Muscle weakness (generalized) (principal)
CPT/HCPCS: 36415; 80053; 85025

== ENCOUNTER 2025-08-29 07:02 | Outpatient (CLI) | payer OTHER, SELFPAY ==
--- OUTSIDE RECORDS SUMMARY | 2010-05-30 08:45 | XMS_ITS | Continuity of Care Document ---
Author Organization [facility] Address [address] [place] [address] [address] [place] [address] Phone Care Team Providers Care Word Processing Supervisor Name Role Phone Jin OD, Toby Unavailable Unavailable Procedures Procedure Date Office/outpatient Visit, [facility] Advance Directives Directive Yes / No Effective Date File Name No Information Encounters Encounter Description Practice Location Reason(s) For Visit Diagnoses Date Provider Providers Copied on Encounter Office/outpat ient Visit, [facility], [address], [place], [place], [id number], [place] tel:[phone] [facility] No Information 2-201 0 Jin OD Toby. [address] , [address], [place], [address], [place]. tel:[phone] Family History Family Member Type Diagnosis Age At Onset No Information Payers Payer name Insurance type Covered republican ID Authoriza tion(s) No Information Social History Type Description Quantity Date Captured Comments Sex Female Smoking Status No Information Chief Complaint And Reason For Visit No Information Reason For Referral Reason For Referral No Information History Of Present Illness Encounter Date Complaint History Of Prese nt Illness No Information Functional Status Date Functional Assessmen t No Information Instructions Date Instruction Additional Infor mation No Information Assessments Type Assessment Date No Information Patient Care Teams Name Effective Dates (start - stop) Status Members No Information
--- OUTSIDE RECORDS SUMMARY | 2025-08-29 07:06 | XMS_ITS | Clinical Summary ---
Author Organization [facility] Address [address] [place] [address] Care Team Providers Care Net Technical Architect Name Role Phone Unavailable Primary Care Provider Unavailabl e Source Comments [facility],non-owned Affiliates and Associated Physician Practices is amultiple site organization consisting of ambulatory clinics and hospital sitesin [place], [place], [place] and [place]. This disclosure is being madepursuant to the Care Everywhere program and may not contain all information available regarding this patient. Last updated 18.[facility] Social History Tobacco Use Types Packs/Day Years Used Date Smoking Tobacco: Never Assessed Comments Unknown Sex and Gender Information Value Date Recorded Sex Assigned at Not on file Legal Sex Female 6:37 AM OPTICAL EFFECTS LAYOUT PERSON Gender Identity Not on file Sexual Orientation [...] 2014 ZOSTER VACCINE (1 of 2) 2014 DEPRESSION SCREENING 11/29/2024 COVID-19 VACCINE (1 - 2023-2 5 season) 2025 INFLUENZA VACCINE (#1) 2025 Respiratory Syncytial Virus [...]
--- OUTSIDE RECORDS SUMMARY | 2025-08-29 07:07 | XMS_ITS | Encounter Summary ---
Author Organization [facility] Address [address] [place] [address] Care Team Providers Care Juvenile Officer Name Role Phone Nancy Alvares NP Primary Care Provider [phone] Reason for Referral * Cardiology (Routine) - Closed Specialty Diagnoses / Procedures Referred By Contac t Referred To Contact Diagnoses SOB (shortness of breath) Procedures Stress Treadmill Test Gilbert Kothari MD [address], [address] [address] Phone: tel: fax: [facility] Cardiology [address] [place] [address] [place] [phone] Phone: tel: fax: Referral ID Status Reason Start Date Expiration Date Visits Re quested Visits Authorized [id number] Closed 08/02/2025 09/01/2026 1 1 * Cardiology (Routine) - Closed Specialty Diagnoses / Procedures Referred By Contac t Referred To Contact Diagnoses Mitral valve insufficiency, unspecified etiology Pulmonary hypertension (HCC) Procedures Transthoracic Echo (TTE) Complete W Doppler/CF Gilbert Kothari MD [address], [address] [place] [address] Phone: tel: fax: [facility] Medical [facility] Cardiology [facility] [address] [place] [phone] Phone: tel: fax: Referral ID Status Reason Start Date Expiration Date Visits Re quested Visits Authorized [id number] Closed 08/02/2025 09/01/2026 1 1 Reason for Visit * Reason Onset Date Comments echo and stress order 08/02/2025 Encounter Details Date Type Department Care Team (Late st Contact Info) Description 08/02/2025 Telephone [facility] Medical Group Cardiology [address] [place] [address] Gilbert Kothari MD [address] [facility] [address] [facility] C, [address] [place], [place] [id number] echo and stress order Social History Tobacco Use Types Packs/Day Years Used Date Smoking Tobacco: Former Cigarettes Q uit: 08/19/1987 Smokeless Tobacco: Never Alcohol Use Standard Drinks/Week Comments Never 0 (1 standard drink = 0.6 oz pur e alcohol) AUDIT-C Answer Date Recorded Q1: How often do you have a drink containing alcohol? Never 08/28/2025 Q2: How many drinks containi ng alcohol do you have on a typical day when you are drinking? Patient does not drink Q3: How often do you have si x or more drinks on one occasion? Never 08/28/2025 Personal Safety Answer Date Recorded Have you ever been in or are you currently in a harmful physical or emotional relationship or is someone making you feel afraid or unsafe? 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 Never 08/28/2025 1:35 PM CDT Saida Allen RN Q2: How many drinks containing alcohol do you have on a typical day when you are drinking? Patient does not drink 08/28/2025 1:35 PM CDT Saida Allen RN Q3: How often do you have six or more drinks on one occasion? Never 08/28/2025 1:35 PM CDT Saida Allen RN documented as of this encounter Miscellaneous Notes * Telephone Encounter - Thu Gunter RN - 08/28/2025 1:56 PM CDT Spoke with pt, reviewed instructions for upcoming [facility]. Pt advised that she may take her morning medications with a sip of water the morning of her procedure. Pt verbalizes understanding. * Telephone Encounter - Lorie Vieira - 08/28/2025 1:42 PM CDT Pt requesting a call back to go over the medication holds for her [facility]. Please advise. Thank you. Contact [phone] * Telephone Encounter - Thu Gunter RN - 08/02/2025 1:51 PM CDT Spoke with pt, reviewed message below from [facility]. Pt verbalizes understanding. Pt reports some EMMANUEL/SOB. Order for stress test and echo placed and scheduled. Instructions reviewed with pt. * Addendum Note - Thu Gunter RN - 08/02/2025 1:48 PM CDTAddended by: THU GUNTER on: 08/02/2025 01:48 PM Modules accepted: Orders * Addendum Note - Thu Gunter RN - 08/02/2025 1:46 PM CDTAddended by: THU GUNTER on: 08/02/2025 01:46 PM Modules accepted: Orders * Telephone Encounter - Thu Gunter RN - 08/02/2025 11:50 AM CDT Will forward to [facility]. Please advise. * Telephone Encounter - Lorie Vieira - 08/02/2025 11:44 AM CDT Pt states that her insurance will be ending on 09/08/2025. States that [facility] was suppose to order a echo and stress test at her next OV. Pt would like the orders placed and scheduled now while she still has insurance. Please advise. Thank you. Contact [phone] documented in this encounter Plan of Treatment Upcoming Encounters Date Type Department Care Team (Latest Contact Info) Description 09/03/2025 10:00 AM CDT Hospital Encounter [facility] Cardiac Catheterization Lab [address] [place] [address] Víctor Sandoval MD [address], [address] [place] [address] Cardiovascular stress test abnormal; SOB (shortness of breath); Atypical chest pain 09/03/2025 10:00 AM CDT - 09/03/2025 11:30 AM CDT Surgery [facility] Cardiac Catheterization Lab [address] [place] [id number] Víctor Sandoval MD [address] [place] [address] LEFT HEART CATHETERIZATION WITH CORONARY ANGIOGRAPHY AND WITH OR WITHOUT LEFT VENTRICULOGRAM [id number] Scheduled Procedures Name Priority Associated Diagnoses Date/Ti me COLONOSCOPY Colon cancer screening documented as of this encounter Results * Stress Treadmill Test (08/20/2025 2:40 PM CDT) Anatomical Region Laterality Modality Nuclear Medicine Narrative 08/20/2025 3:03 PM CDT Table formatting from the original result was not included. Adult Stress Test Report 08/20/2025 Requesting Physician: @PCP@ Study exercise ECG Pre-test ECG normal Level of Stress 114% age-predicted max HR 7.0 METS Achieved Functional Capacity mildly impaired Abnormal Symptoms Chest pain/fatigue Heart Rate Response normal BP Response normal Stress ECG ECG evidence of ischemia Impression: Abnormal -- see above. Graded exercise test to 114% of age predicted maximum heart rate abnormal with about 1.5-2 mm of gradual and progressive inferior lateral ST segment depression as well as symptoms of chest pain induced by exercise Interpreted by: Shashi Faria MD 08/20/2025 us Gilbert Kothari MD CV STRESS PROCEDURES Taryn l Result * TRANSTHORACIC ECHO (TTE) COMPLETE W DOPPLER/CF WO CONTRAST (08/14/2025 1:26 PM CDT) Estimated EF 55-60 % CONS SCIMAGE EF Mod BP 64 % CONS SCIMAGE Anatomical Region Laterality Modality Ultrasound 08/14/2025 1:05 PM CDT Narrative 08/14/2025 4:47 PM CDT [facility] Medical Group Cardiology [address], [address], [place] [address] P:[phone] P:[phone] Echocardiographic Report Patient Name: BIJAL DOUGLAS L : 1965 Study Date: 08/14/2025 1:05:20 PM Sex: F Inspector Balance Bridge: ARNIE Location: [facility] Ref Provider: GILBERT KOTHARI Height(Cm): 168 BSA: 2.09 Weight(Kg): 93.4 Heart Rate: 62 BP: 121 / 70 Quality: Good Order Provider: GILBERT KOTHARI PROCEDURES: Echocardiographic Report: Transthoracic echocardiogram with complete 2D, M-Mode, and color Doppler examination. With Strain Analysis. INDICATIONS: I34.0 Nonrheumatic mitral (valve) insufficiency and I27.20 Pulmonary hypertension, unspecified. MEASUREMENTS: 2D/MM Value Range Doppler Value Range EF Mod BP 64 % [ 54 - 74 ] KARLO Vmax 1.55 cm2 [ 2.00 - 4.00 ] EF Teich MM 70 % [ 54 - 74 ] AV Mean PG 12 mmHg Estimated EF 55-60 % AV Peak Delmer 2.27 m/s [ 1.00 - 1.70 ] LV GLS -16.84 % AV Peak PG 21 mmHg LVIDd 2D 4.78 cm [ 3.80 - 5.20 ] AV VTI 49.76 cm LVIDd MM 5.39 cm [ 3.80 - 5.20 ] LVOT Diam 1.96 cm [ 1.70 - 2.10 ] LVIDs 2D 3.12 cm [ 2.20 - 3.50 ] LVOT Peak Delmer 1.17 m/s [ 0.70 - 1.10 ] LVIDs MM 3.25 cm [ 2.20 - 3.50 ] LVOT VTI 27.38 cm LVPWd 2D 0.81 cm [ 0.60 - 0.90 ] MV E Peak Delmer 0.95 m/s [ 0.60 - 1.30 ] LVPWd MM 0.86 cm [ 0.60 - 0.90 ] MV A Peak Delmer 0.88 m/s [ 1.00 - 1.20 ] IVSd 2D 0.81 cm [ 0.60 - 0.90 ] MV Decel Time 175 msec [ 104 - 258 ] IVSd MM 0.74 cm [ 0.60 - 0.90 ] PV Peak Delmer 1.03 m/s [ 0.40 - 0.80 ] LA Dimension MM 3.61 cm [ 2.70 - 3.80 ] TR Peak Delmer 2.42 m/s [ 1.00 - 2.80 ] AoR Diam MM 3.16 cm [ 2.70 - 3.70 ] TR Peak PG 24 mmHg LA Volume 37.15 ml [ 22.00 - 52.00 ] RVSP 32.00 mmHg [ 10.00 - 36.00 ] LA Volume Index 18 cc/m2 [ 16 - 28 ] RV S` 0.16 m/s ACS MM 1.78 cm Lateral E` 0.10 m/s [ 0.10 - 0.15 ] RA Volume 38.07 ml Septal E` 0.09 m/s [ 0.08 - 0.15 ] E` 0.09 m/s E/E` 10 Tapse 2.33 cm [ 1.71 - 5.00 ] 2D/MM Value Range Doppler Value Range - FINDINGS: Interpretation Site: Exam was interpreted at [facility]. Left Ventricle: Normal left ventricular systolic function. No focal wall motion abnormalities. Normal left ventricular wall thickness. Mild enlargement of left ventricle cavity. Normal left ventricular diastolic function. Ejection fraction is measured at 64 %. Ejection Fraction is visually estimated to be 55-60 %. Global Longitudinal Strain is -17 %. GLS is borderline. Right Ventricle: Normal right ventricular size. Normal right ventricular systolic function. Left Atrium: There is mild enlargement of left atrium. Right Atrium: The right atrium is normal in size. Atrial Septum: Normal atrial septum. Mitral Valve: Normal appearance of the mitral valve. Mild mitral valve regurgitation. There is no hemodynamically significant mitral stenosis by Doppler. Aortic Valve: Mild aortic stenosis. Peak Velocity of 2.27 m/s. Peak gradient of 21.0 mmHg. Mean gradient of 12.0 mmHg. Valve area of 1.6 cm2. Mild to moderate aortic valve regurgitation. Tricuspid Valve: Normal appearance of the tricuspid valve. Normal right ventricular systolic pressure. Estimated peak RVSP is 32 mmHg. Mild tricuspid regurgitation. Pulmonic Valve: Normal appearance of the pulmonic valve. No pulmonic stenosis. Mild pulmonic regurgitation. Pericardium: Normal pericardium with no significant pericardial effusion. Aorta: No aortic root dilation. There is moderate atherosclerosis in the aortic root. IVC: Normal size and normal respiratory collapse consistent with normal right atrial pressure (<5 mmHg). CONCLUSIONS: Normal left ventricular systolic function. No focal wall motion abnormalities. Normal left ventricular wall thickness. Mild enlargement of left ventricle cavity. Normal left ventricular diastolic function. Ejection fraction is measured at 64 %. Ejection Fraction is visually estimated to be 55-60 %. Global Longitudinal Strain is -17 %. There is mild enlargement of left atrium. Mild mitral valve regurgitation. Mild aortic stenosis. Peak Velocity of 2.27 m/s. Peak gradient of 21.0 mmHg. Mean gradient of 12.0 mmHg. Valve area of 1.6 cm2. Mild to moderate aortic valve regurgitation. Mild tricuspid regurgitation. Mild pulmonic regurgitation. Normal sinus rhythm. Electronically Signed By: Gilbert Kothari MD 08/14/2025 4:47:22 PM CDT Procedure Note Gilbert Kothari MD - 08/14/2025 [facility] Medical Group Cardiology [facility], [address] [address] P:[phone] P:[phone] Echocardiographic Report Patient Name: BIJAL DOUGLAS L : 1965 Study Date: 08/14/2025 1:05:20 PM Sex: F Inspector Balance Bridge: ARNIE Location: [facility]W Ref Provider: GILBERT KOTHARI Height(Cm): 168 BSA: 2.09 Weight(Kg): 93.4 Heart Rate: 62 BP: 121 / 70 Quality: Good Order Provider: GILBERT KOTHARI PROCEDURES: Echocardiographic Report: Transthoracic echocardiogram with complete 2D, M-Mode, and color Dopplerexamination. With Strain Analysis. INDICATIONS: I34.0 Nonrheumatic mitral (valve) insufficiency and I27.20 Pulmonaryhypertension, unspecified. MEASUREMENTS: 2D/MM Value Range Doppler ValueRange EF Mod BP 64 % [ 54 - 74 ] KARLO Vmax 1.55cm2 [ 2.00 - 4.00 ] EF Teich MM 70 % [ 54 - 74 ] AV Mean PG 12mmHg Estimated EF 55-60 % AV Peak Delmer 2.27m/s [ 1.00 - 1.70 ] LV GLS -16.84 % AV Peak PG 21mmHg LVIDd 2D 4.78 cm [ 3.80 - 5.20 ] AV VTI 49.76cm LVIDd MM 5.39 cm [ 3.80 - 5.20 ] LVOT Diam 1.96cm [ 1.70 - 2.10 ] LVIDs 2D 3.12 cm [ 2.20 - 3.50 ] LVOT Peak Delmer 1.17m/s [ 0.70 - 1.10 ] LVIDs MM 3.25 cm [ 2.20 - 3.50 ] LVOT VTI 27.38cm LVPWd 2D 0.81 cm [ 0.60 - 0.90 ] MV E Peak Delmer 0.95m/s [ 0.60 - 1.30 ] LVPWd MM 0.86 cm [ 0.60 - 0.90 ] MV A Peak Delmer 0.88m/s [ 1.00 - 1.20 ] IVSd 2D 0.81 cm [ 0.60 - 0.90 ] MV Decel Time 175msec [ 104 - 258 ] IVSd MM 0.74 cm [ 0.60 - 0.90 ] PV Peak Delmer 1.03m/s [ 0.40 - 0.80 ] LA Dimension MM 3.61 cm [ 2.70 - 3.80 ] TR Peak Delmer 2.42m/s [ 1.00 - 2.80 ] AoR Diam MM 3.16 cm [ 2.70 - 3.70 ] TR Peak PG 24mmHg LA Volume 37.15 ml [ 22.00 - 52.00 ] RVSP 32.00mmHg [ 10.00 - 36.00 ] LA Volume Index 18 cc/m2 [ 16 - 28 ] RV S` 0.16m/s ACS MM 1.78 cm Lateral E` 0.10m/s [ 0.10 - 0.15 ] RA Volume 38.07 ml Septal E` 0.09m/s [ 0.08 - 0.15 ] E` 0.09 m/s E/E` 10 Tapse 2.33 cm [ 1.71 - 5.00 ] 2D/MM Value Range Doppler ValueRange - FINDINGS: Interpretation Site: Exam was interpreted at [facility]. Left Ventricle: Normal left ventricular systolic function. No focal wall motionabnormalities. Normal left ventricular wall thickness. Mild enlargement of left ventriclecavity. Normal left ventricular diastolic function. Ejection fraction is measured at 64 %.Ejection Fraction is visually estimated to be 55-60 %. Global Longitudinal Strain is -17 %.GLS is borderline. Right Ventricle: Normal right ventricular size. Normal right ventricular systolicfunction. Left Atrium: There is mild enlargement of left atrium. Right Atrium: The right atrium is normal in size. Atrial Septum: Normal atrial septum. Mitral Valve: Normal appearance of the mitral valve. Mild mitral valve regurgitation.There is no hemodynamically significant mitral stenosis by Doppler. Aortic Valve: Mild aortic stenosis. Peak Velocity of 2.27 m/s. Peak gradient of 21.0mmHg. Mean gradient of 12.0 mmHg. Valve area of 1.6 cm2. Mild to moderate aorticvalve regurgitation. Tricuspid Valve: Normal appearance of the tricuspid valve. Normal right ventricularsystolic pressure. Estimated peak RVSP is 32 mmHg. Mild tricuspid regurgitation. Pulmonic Valve: Normal appearance of the pulmonic valve. No pulmonic stenosis. Mildpulmonic regurgitation. Pericardium: Normal pericardium with no significant pericardial effusion. Aorta: No aortic root dilation. There is moderate atherosclerosis in the aorticroot. IVC: Normal size and normal respiratory collapse consistent with normal rightatrial pressure (<5 mmHg). CONCLUSIONS: Normal left ventricular systolic function. No focal wall motionabnormalities. Normal left ventricular wall thickness. Mild enlargement of left ventriclecavity. Normal left ventricular diastolic function. Ejection fraction is measured at 64 %.Ejection Fraction is visually estimated to be 55-60 %. Global Longitudinal Strain is -17%. There is mild enlargement of left atrium. Mild mitral valve regurgitation. Mild aortic stenosis. Peak Velocity of 2.27 m/s. Peak gradient of 21.0mmHg. Mean gradient of 12.0 mmHg. Valve area of 1.6 cm2. Mild to moderate aorticvalve regurgitation. Mild tricuspid regurgitation. Mild pulmonic regurgitation. Normal sinus rhythm. Electronically Signed By: Gilbert Kothari MD 08/14/2025 4:47:22 PM CDT Gilbert Kothari MD CV ECHO PROCEDURES Final Result documented in this encounter Visit Diagnoses Diagnosis Mitral valve insufficiency, unspecified etiology- Primary Pulmonary hypertension (HCC) Other chronic pulmonary heart diseases SOB (shortness of breath) Shortness of breath Mitral valve insufficiency, unspecified etiology Pulmonary hypertension (HCC) Other chronic pulmonary heart diseases SOB (shortness of breath) Shortness of breath Cardiovascular stress test abnormal- Primary SOB (shortness of breath) Shortness of breath Atypical chest pain Other chest pain Cardiovascular stress test abnormal SOB (shortness of breath) Shortness of breath Atypical chest pain Other chest pain documented in this encounter Care Teams Juvenile Officer Relationship Specialty Start Date End Date Nancy Alvares NP [address] [place] [address] PCP - General Nurse Practitioner 10/08/21 documented as of this encounter
--- OUTSIDE RECORDS SUMMARY | 2025-08-29 07:07 | XMS_ITS | Encounter Summary ---
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 Gender Identity Not on file Sexual Orientation Not on file documented as of this encounter Plan of Treatment Upcoming Encounters Date Type Department Care Team (Latest Contact Info) Description 09/03/2025 10:00 AM CDT Hospital Encounter [facility] Cardiac Catheterization Lab [address] [place] [address] Víctor Sandoval MD [address], [address] [place] [address] Cardiovascular stress test abnormal; SOB (shortness of breath); Atypical chest pain 09/03/2025 10:00 AM CDT - 09/03/2025 11:30 AM CDT Surgery [facility] Cardiac Catheterization Lab [address] [place] [address] Víctor Sandoval MD [address] [place] [address] LEFT HEART CATHETERIZATION WITH CORONARY ANGIOGRAPHY AND WITH OR WITHOUT LEFT VENTRICULOGRAM [id number] Scheduled Procedures Name Priority Associated Diagnoses Date/Ti me COLONOSCOPY Colon cancer screening documented as of this encounter Procedures Procedure Name Priority Date/Time Associated Diagnosis Comments SCAN - RADIOLOGY/IMAGING 04/18/2019 documented in this encounter Results * SCAN - RADIOLOGY/IMAGING (04/18/2019) Anatomical Region Laterality Modality Other us Provider Scanning Final Result documented in this encounter Visit Diagnoses Not on filedocumented in this encounter Care Teams Black Oxide Coating Equipment Tender Relationship Specialty Start Date End Date Lorena Taylor MD PCP - General Family Practice 01/26/19 03/31/21 Dante Olivarez PA [address] [place] [address] PCP - General Physician Resident Hall Director 04/01/21 06/09/21 Morro Doyle MD [address] [place] [address] PCP - General Internal Medicine 06/10/21 10/07/21 Nancy Alvares NP [address] [place] [address] PCP - General Nurse Practitioner 10/08/21 documented as of this encounter
--- OUTSIDE RECORDS SUMMARY | 2025-08-29 07:07 | XMS_ITS | Encounter Summary ---
Author Organization [facility] Healthcare Address [address] [place] [address] Care Team Providers Care Sales Route Driver Helper Name Role Phone Nancy Alvares NP Primary Care Provider [phone] Encounter Details Date Type Department Care Team (Late st Contact Info) Description 07/31/2025 Results Follow-Up [facility] Medical Group Neurology [address] [place] [address] Marlin Kirkland, RODRICK [address] [facility] [address] [place] [address] CTA Head Neck W WO Contrast Social History Tobacco Use Types Packs/Day Years Used Date Smoking Tobacco: Former Cigarettes Q uit: 08/19/1987 Smokeless Tobacco: Never Alcohol Use Standard Drinks/Week Comments Never 0 (1 standard drink = 0.6 oz pur e alcohol) AUDIT-C Answer Date Recorded Q1: How often do you have a drink containing alcohol? Never 07/11/2025 Q2: How many drinks containi ng alcohol do you have on a typical day when you are drinking? Patient does not drink Q3: How often do you have si x or more drinks on one occasion? Never 07/11/2025 Personal Safety Answer Date Recorded Have you ever been in or are you currently in a harmful physical or emotional relationship or is someone making you feel afraid or unsafe? 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 Gender Identity Not on file Sexual Orientation Not on file documented as of this encounter Plan of Treatment Upcoming Encounters Date Type Department Care Team (Latest Contact Info) Description 09/03/2025 10:00 AM CDT Hospital Encounter [facility] Cardiac Catheterization Lab [address] [place] [address] Víctor Sandoval MD [address], [facility] [address] [place] [address] Cardiovascular stress test abnormal; SOB (shortness of breath); Atypical chest pain 09/03/2025 10:00 AM CDT - 09/03/2025 11:30 AM CDT Surgery [facility] Cardiac Catheterization Lab [address] [place] [address] Víctor Sandoval MD [address] [facility] [address], [facility] [address] [place], [place] [id number] LEFT HEART CATHETERIZATION WITH CORONARY ANGIOGRAPHY AND WITH OR WITHOUT LEFT VENTRICULOGRAM [id number] Scheduled Procedures Name Priority Associated Diagnoses Date/Ti me COLONOSCOPY Colon cancer screening documented as of this encounter Visit Diagnoses Not on filedocumented in this encounter Care Teams Sales Route Driver Helper Relationship Specialty Start Date End Date Nancy Alvares NP [address] [place] [address] PCP - General Nurse Practitioner 10/08/21 documented as of this encounter
--- OUTSIDE RECORDS SUMMARY | 2025-08-29 07:07 | XMS_ITS | Encounter Summary ---
Author Organization [facility] Address [address] [place] [address] Phone Care Team Providers Care Surface To Air Weapons Officer Name Role Phone Kiran Garvey MD Primary Care Provider + [phone] Kiran Garvey MD Primary Care Provider + [phone] Lorena Taylor MD Primary Care Provider + [phone] Dante Olivarez Primary Care Provider [phone] Morro Doyle MD Primary Care Provider [phone] Nancy Alvares NP Primary Care Provider + [phone] Encounter Details Date Type Department Care Team (Latest Contact Info) Description 03/19/2015 Orders Only [facility] Scanning, Provider Social History Tobacco Use Types Packs/Day Years Used Date Smoking Tobacco: Never Assessed Comments Unknown Sex and Gender Information Value Date Recorded Sex Assigned at Not on file 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 Gender Identity Not on file Sexual Orientation Not on file documented as of this encounter Plan of Treatment Upcoming Encounters Date Type Department Care Team (Latest Contact Info) Description 09/03/2025 10:00 AM CDT Hospital Encounter [facility] Cardiac Catheterization Lab [address] [place] [address] Víctor Sandoval MD [address] [place] [address] Cardiovascular stress test abnormal; SOB (shortness of breath); Atypical chest pain 09/03/2025 10:00 AM CDT - 09/03/2025 11:30 AM CDT Surgery [facility] Cardiac Catheterization Lab [address] [place] [address] Víctor Sandoval MD [address] [place], [place] [id number] LEFT HEART CATHETERIZATION WITH CORONARY ANGIOGRAPHY AND WITH OR WITHOUT LEFT VENTRICULOGRAM [id number] Scheduled Procedures Name Priority Associated Diagnoses Date/Ti [...] on filedocumented in this encounter Care Teams Surface To Air Weapons Officer Relationship Specialty Start Date End Date Kiran Garvey MD [address] [place] [address] PCP - General 02/26/17 01/25/19 Kiran Garvey MD [address] [facility] [place] [address] PCP - General 03/21/15 02/25/17 Lorena Taylor MD [address] [facility] [place] [address] PCP - General Family Practice 01/26/19 03/31/21 Dante Olivarez PA [address] [place] [address] PCP - General Physician Guideman 04/01/21 06/09/21 Morro Doyle MD [address] [facility] [address] [place], [place] [id number] PCP - General Internal Medicine 06/10/21 10/07/21 Nancy Alvares NP [address] [place] [address] PCP - General Nurse Practitioner 10/08/21 documented as of this encounter
--- OUTSIDE RECORDS SUMMARY | 2025-08-29 07:07 | XMS_ITS | Encounter Summary ---
Author Organization [facility] Address [address] [place] [address] Phone Care Team Providers Care Sleep Technologist Name Role Phone Kiran Garvey MD Primary Care Provider + [phone] Kiran Garvey MD Primary Care Provider + [phone] Lorena Taylor MD Primary Care Provider + [phone] Dante Olivarez Primary Care Provider [phone] Morro Doyle MD Primary Care Provider [phone] Nancy Alvares NP Primary Care Provider + [phone] Encounter Details Date Type Department Care Team (Latest Contact Info) Description 02/27/2015 Orders Only [facility] Scanning, Provider Social History Tobacco Use Types Packs/Day Years Used Date Smoking Tobacco: Never Assessed Comments Unknown Sex and Gender Information Value Date Recorded Sex Assigned at Not on file 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 Gender Identity Not on file Sexual Orientation Not on file documented as of this encounter Plan of Treatment Upcoming Encounters Date Type Department Care Team (Latest Contact Info) Description 09/03/2025 10:00 AM CDT Hospital Encounter [facility] Cardiac Catheterization Lab [address] [place] [address] Víctor Sandoval MD [address] [place] [address] Cardiovascular stress test abnormal; SOB (shortness of breath); Atypical chest pain 09/03/2025 10:00 AM CDT - 09/03/2025 11:30 AM CDT Surgery [facility] Cardiac Catheterization Lab [address] [place] [address] Víctor Sandoval MD [address] [place], [place] [id number] LEFT HEART CATHETERIZATION WITH CORONARY ANGIOGRAPHY AND WITH OR WITHOUT LEFT VENTRICULOGRAM [id number] Scheduled Procedures Name Priority Associated Diagnoses Date/Ti me COLONOSCOPY Colon cancer screening documented as of this encounter Procedures Procedure Name Priority Date/Time Associated Diagnosis Comments SCAN - RADIOLOGY/IMAGING 02/27/2015 documented in this encounter Results * SCAN - RADIOLOGY/IMAGING (02/27/2015) Anatomical Region Laterality Modality Other us Provider Scanning Final Result documented in this encounter Visit Diagnoses Not on filedocumented in this encounter Care Teams Sleep Technologist Relationship Specialty Start Date End Date Kiran Garvey MD [address] [place] [address] PCP - General 02/26/17 01/25/19 Kiran Garvey MD [address] [place] [address] PCP - General 03/21/15 02/25/17 Lorena Taylor MD [address] [place] [address] PCP - General Family Practice 01/26/19 03/31/21 Dante Olivarez PA [address] [place] [address] PCP - General Physician Hand Inserter Operator 04/01/21 06/09/21 Morro Doyle MD [address] [place] [address] PCP - General Internal Medicine 06/10/21 10/07/21 Nancy Alvares NP [address] [place] [address] PCP - General Nurse Practitioner 10/08/21 documented as of this encounter
--- OUTSIDE RECORDS SUMMARY | 2025-08-29 07:07 | XMS_ITS | Encounter Summary ---
Author Organization [facility] Address [address] [place] [address] Phone Care Team Providers Care Rf Design Engineer Name Role Phone Kiran Garvey MD Primary Care Provider + [phone] Kiran Garvey MD Primary Care Provider + [phone] Lorena Taylor MD Primary Care Provider + [phone] Dante Olivarez Primary Care Provider [phone] Morro Doyle MD Primary Care Provider [phone] Nancy Alvares NP Primary Care Provider + [phone] Encounter Details Date Type Department Care Team (Latest Contact Info) Description 02/27/2011 Orders Only [facility] Scanning, Provider Social History Tobacco Use Types Packs/Day Years Used Date Smoking Tobacco: Never Assessed Comments Unknown Sex and Gender Information Value Date Recorded Sex Assigned at Not on file 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 Gender Identity Not on file Sexual Orientation Not on file documented as of this encounter Plan of Treatment Upcoming Encounters Date Type Department Care Team (Latest Contact Info) Description 09/03/2025 10:00 AM CDT Hospital Encounter [facility] Cardiac Catheterization Lab [address] [place] [address] Víctor Sandoval MD [address] [place] [address] Cardiovascular stress test abnormal; SOB (shortness of breath); Atypical chest pain 09/03/2025 10:00 AM CDT - 09/03/2025 11:30 AM CDT Surgery [facility] Cardiac Catheterization Lab [address] [place] [address] Víctor Sandoval MD [address] [place], [place] [id number] LEFT HEART CATHETERIZATION WITH CORONARY ANGIOGRAPHY AND WITH OR WITHOUT LEFT VENTRICULOGRAM [id number] Scheduled Procedures Name Priority Associated Diagnoses Date/Ti me COLONOSCOPY Colon cancer screening documented as of this encounter Procedures Procedure Name Priority Date/Time Associated Diagnosis Comments SCAN - RADIOLOGY/IMAGING 02/27/2011 documented in this encounter Results * SCAN - RADIOLOGY/IMAGING (02/27/2011) Anatomical Region Laterality Modality Other us Provider Scanning Final Result documented in this encounter Visit Diagnoses Not on filedocumented in this encounter Care Teams Rf Design Engineer Relationship Specialty Start Date End Date Kiran Garvey MD [address] [place] [address] PCP - General 02/26/17 01/25/19 Kiran Garvey MD [address] [place] [address] PCP - General 03/21/15 02/25/17 Lorena Taylor MD [address] [place] [address] PCP - General Family Practice 01/26/19 03/31/21 Dante Olivarez PA [address] [place] [address] PCP - General Physician Director Web 04/01/21 06/09/21 Morro Doyle MD [address] [place] [address] PCP - General Internal Medicine 06/10/21 10/07/21 Nancy Alvares NP [address] [place] [address] PCP - General Nurse Practitioner 10/08/21 documented as of this encounter
--- OUTSIDE RECORDS SUMMARY | 2025-08-29 07:08 | XMS_ITS | Encounter Summary ---
Author Organization [facility] Address [address] [place] [address] Phone Care Team Providers Care Brand Recorder Name Role Phone Kiran Garvey MD Primary Care Provider + [phone] Kiran Garvey MD Primary Care Provider + [phone] Lorena Taylor MD Primary Care Provider + [phone] Dante Olivarez Primary Care Provider [phone] Morro Doyle MD Primary Care Provider [phone] Nancy Alvares NP Primary Care Provider + [phone] Encounter Details Date Type Department Care Team (Latest Contact Info) Description 10/26/2006 Orders Only [facility] Scanning, Provider Social History Tobacco Use Types Packs/Day Years Used Date Smoking Tobacco: Never Assessed Comments Unknown Sex and Gender Information Value Date Recorded Sex Assigned at Not on file 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 Gender Identity Not on file Sexual Orientation Not on file documented as of this encounter Plan of Treatment Upcoming Encounters Date Type Department Care Team (Latest Contact Info) Description 09/03/2025 10:00 AM CDT Hospital Encounter [facility] Cardiac Catheterization Lab [address] [place] [address] Víctor Sandoval MD [address] [place] [address] Cardiovascular stress test abnormal; SOB (shortness of breath); Atypical chest pain 09/03/2025 10:00 AM CDT - 09/03/2025 11:30 AM CDT Surgery [facility] Cardiac Catheterization Lab [address] [place] [address] Víctor Sandoval MD [address] [place], [place] [id number] LEFT HEART CATHETERIZATION WITH CORONARY ANGIOGRAPHY AND WITH OR WITHOUT LEFT VENTRICULOGRAM [id number] Scheduled Procedures Name Priority Associated Diagnoses Date/Ti me COLONOSCOPY Colon cancer screening documented as of this encounter Procedures Procedure Name Priority Date/Time Associated Diagnosis Comments SCAN - RADIOLOGY/IMAGING 10/26/2006 documented in this encounter Results * SCAN - RADIOLOGY/IMAGING (10/26/2006) Anatomical Region Laterality Modality Other us Provider Scanning Final Result documented in this encounter Visit Diagnoses Not on filedocumented in this encounter Care Teams Brand Recorder Relationship Specialty Start Date End Date Kiran Garvey MD [address] [place] [address] PCP - General 02/26/17 01/25/19 Kiran Garvey MD [address] [place] [address] PCP - General 03/21/15 02/25/17 Lorena Taylor MD [address] [place] [address] PCP - General Family Practice 01/26/19 03/31/21 Dante Olivarez PA [address] [place] [address] PCP - General Physician White Goods Appliance Tech 04/01/21 06/09/21 Morro Doyle MD [address] [place] [address] PCP - General Internal Medicine 06/10/21 10/07/21 Nancy Alvares NP [address] [place] [address] PCP - General Nurse Practitioner 10/08/21 documented as of this encounter
--- OUTSIDE RECORDS SUMMARY | 2025-08-29 07:08 | XMS_ITS | Encounter Summary ---
Author Organization [facility] Address [address] [place] [address] Phone Care Team Providers Care Jawbone Breaker Name Role Phone Kiran Garvey MD Primary Care Provider + [phone] Kiran Garvey MD Primary Care Provider + [phone] Lorena Taylor MD Primary Care Provider + [phone] Dante Olivarez Primary Care Provider [phone] Morro Doyle MD Primary Care Provider [phone] Nancy Alvares NP Primary Care Provider + [phone] Encounter Details Date Type Department Care Team (Latest Contact Info) Description 09/27/2009 Orders Only [facility] Scanning, Provider Social History Tobacco Use Types Packs/Day Years Used Date Smoking Tobacco: Never Assessed Comments Unknown Sex and Gender Information Value Date Recorded Sex Assigned at Not on file 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 Gender Identity Not on file Sexual Orientation Not on file documented as of this encounter Plan of Treatment Upcoming Encounters Date Type Department Care Team (Latest Contact Info) Description 09/03/2025 10:00 AM CDT Hospital Encounter [facility] Cardiac Catheterization Lab [address] [place] [address] Víctor Sandoval MD [address] [place] [address] Cardiovascular stress test abnormal; SOB (shortness of breath); Atypical chest pain 09/03/2025 10:00 AM CDT - 09/03/2025 11:30 AM CDT Surgery [facility] Cardiac Catheterization Lab [address] [place] [address] Víctor Sandoval MD [address] [place], [place] [id number] LEFT HEART CATHETERIZATION WITH CORONARY ANGIOGRAPHY AND WITH OR WITHOUT LEFT VENTRICULOGRAM [id number] Scheduled Procedures Name Priority Associated Diagnoses Date/Ti me COLONOSCOPY Colon cancer screening documented as of this encounter Procedures Procedure Name Priority Date/Time Associated Diagnosis Comments SCAN - RADIOLOGY/IMAGING 09/27/2009 documented in this encounter Results * SCAN - RADIOLOGY/IMAGING (09/27/2009) Anatomical Region Laterality Modality Other us Provider Scanning Final Result documented in this encounter Visit Diagnoses Not on filedocumented in this encounter Care Teams Jawbone Breaker Relationship Specialty Start Date End Date Kiran Garvey MD [address] [place] [address] PCP - General 02/26/17 01/25/19 Kiran Gar[place] [address] PCP - General 03/21/15 02/25/17 Lorena Taylor MD [address] [place] [address] PCP - General Family Practice 01/26/19 03/31/21 Dante Olivarez PA [address] [place] [address] PCP - General Physician Ux Design Lead 04/01/21 06/09/21 Morro Doyle MD [address] [place] [address] PCP - General Internal Medicine 06/10/21 10/07/21 Nancy Alvares NP [address] [place] [address] PCP - General Nurse Practitioner 10/08/21 documented as of this encounter
--- OUTSIDE RECORDS SUMMARY | 2025-08-29 07:08 | XMS_ITS | Clinical Summary ---
Author Organization [facility] [place] [address] Address [address] [place] [address] Care Team Providers Care Lead Shipper Name Role Phone Nancy Alvares NP Primary Care Provider [phone] Allergies No known active allergies Medications losartan (COZAAR) 50 mg tablet take 1 tablet by oral route every day 0 0 5 Active indapamide (LOZOL) 2.5 mg tablet take 1 tablet by oral route 2 times every day in the morning 0 0 5 Active eletriptan (RELPAX) 40 mg tablet Take 1 tablet (40 mg total) by mouth as needed Active LORazepam (ATIVAN) 0.5 mg tablet Take 1 tablet (0.5 mg total) by mouth as needed 5 9 Active ondansetron (ZOFRAN) 4 mg tablet TAKE 1 TABLET BY MOUTH EVERY 6 HOURS NEEDED FOR NAUSEA OR VOMITING 1 Active folic acid (FOLVITE) 1 mg tablet 2 Active cholecalciferol (VITAMIN D-3) 50,000 unit capsule Take 1 capsule (50,000 Units total) by mouth once a week 4 Active albuterol HFA (PROVENTIL HFA,VENTOLIN HFA,PROAIR HFA) 90 mcg/actuation inhaler INHALE 1-2 PUFFS BY MOUTH EVERY 4-6 HOURS NEEDED SHORTNESS OF BREATH 5 Active sodium, potassium & mag sulfates (SUPREP BOWEL KIT) 17.5-3.13-1.6 gram recon solnIndications :Bowel Evacuation PLEASE TAKE THE 1ST BOTTLE AT 6PM THE DAY BEFORE THE PROCEDURE, AND THE 2ND BOTTLE SIX HOURS PRIOR TO LEAVING HOME IN THE MORNING. 354 mL 5 Active HYDROcodone-annie taminophen (NORCO) 5-325 mg per tablet Take 1 tablet by mouth every 6 (six) hours as needed 5 Active ibuprofen (ADVIL,MOTRIN) 400 mg tablet Take 2 tablets (800 mg total) by mouth every 8 (eight) hours as needed for pain 5 Active aspirin 81 mg enteric coated tablet Take 1 tablet (81 mg total) by mouth daily Active omeprazole (PriLOSEC) 40 mg capsule Take 1 capsule (40 mg total) by mouth daily 30 capsule [address] (CYMBALTA) 60 mg capsule Take 1 capsule (60 mg total) by mouth daily 5 Active pramipexole (MIRAPEX) 0.5 mg tabletIndicatio ns:Parkinson disease (HCC) Take 1 tablet (0.5 mg total) by mouth 3 (three) times a day 270 tablet 1 5 12/26/19 26 Active potassium chloride ER 10 mEq CR tablet 5 Active Active Problems Problem Noted Date Diagnosed Date Cardiovascular stress test abnormal 08/22/2025 LUQ pain 05/25/2025 LLQ abdominal pain 05/25/2025 Abnormal finding on imaging 05/23/2025 Blood in stool 05/23/2025 Bowel wall thickening 05/23/2025 Lower GI bleed 05/18/2025 Epigastric pain 10/12/2024 Abdominal pain 10/12/2024 Left carotid bruit 10/03/2024 Personal history of colonic polyps 11/16/2022 Overview (11/16/2022): Added automatically from request for surgery [id number] Family history of malignant neoplasm of gastrointestinal tract 11/16/2022 Overview (11/16/2022): Added automatically from request for surgery [id number] Colon cancer screening 09/17/2022 Parkinson disease 06/10/2021 Assessment & Plan (11/18/2021 4:42 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): Patient continues at this time on pramipexole [...] Encounters Date Type Department Care Team Description 08/24/2025 9:00 AM CDT Therapy [facility] OP Occup Therapy [address] [place] [address] [address] [place] [address] Terrazas, Berenice, OT Parkinson's disease, unspecified whether dyskinesia present, unspecified whether manifestations fluctuate (HCC) (Primary Dx) 08/20/2025 2:00 PM CDT Ancillary Procedure [facility] Cardiology [address] [place] [address] SOB (shortness of breath) 08/16/2025 11:00 AM CDT Therapy [facility] OP Occup Therapy [address] [place] [address] [address] [place] [address] Terrazas, Berenice, OT Parkinson's disease, unspecified whether dyskinesia present, unspecified whether manifestations fluctuate (HCC) (Primary Dx) 08/15/2025 Results Follow-Up [facility] Cardiology [address] [place] [address] Gilbert Campoverde MD Transthoracic Echo (TTE) Complete W Doppler/CF, Stress Treadmill Test 08/14/2025 1:00 PM CDT Ancillary Procedure [facility] Cardiology at [address] [place] [phone] Mitral valve insufficiency, unspecified etiology; Pulmonary hypertension (HCC) 08/14/2025 8:41 AM CDT - 08/14/2025 11:59 PM CDT Hospital Encounter [facility] Ultrasound [address] [place] [address] Pelvic and perineal pain Discharge Disposition: Discharge to home or self care 08/13/2025 10:00 AM CDT Therapy [facility] OP Occup Therapy [address] [place] [address] Светлана Vuong, LERMA Parkinson's disease, unspecified whether dyskinesia present, unspecified whether manifestations fluctuate (HCC) (Primary Dx) 08/10/2025 Orders Only [facility] Health Information Management [address] [place] [address] Scanning, Provider 08/08/2025 3:00 PM CDT Therapy [facility] OP Occup Therapy [address] [place] [address] Berenice Terrazas, OT Parkinson's disease, unspecified whether dyskinesia present, unspecified whether manifestations fluctuate (HCC) (Primary Dx) 08/03/2025 11:00 AM CDT Therapy [facility] OP Occup Therapy [address] [place] [address] Juan Polk, OT Parkinson's disease, unspecified whether dyskinesia present, unspecified whether manifestations fluctuate (HCC) (Primary Dx) 08/02/2025 Telephone [facility] Cardiology [address] [place] [address] Gilbert Campoverde MD echo and stress order 07/31/2025 Results Follow-Up [facility] Neurology [address] [place] [address] [address] [place] [address] Marlin Kirkland NP CTA Head Neck W WO Contrast 07/26/2025 10:00 AM CDT Therapy [facility] OP Occup Therapy [address] [place] [address] Светлана Vuong, LERMA Parkinson's disease, unspecified whether dyskinesia present, unspecified whether manifestations fluctuate (HCC) (Primary Dx) 07/25/2025 8:57 AM CDT - 07/25/2025 11:59 PM CDT Hospital Encounter [facility] [address] [place] [address] Facial paresthesia Discharge Disposition: Discharge to home or self care 07/23/2025 9:00 AM CDT Therapy [facility] OP Occup Therapy [address] [place] [address] Светлана Vuong, LERMA Parkinson's disease, unspecified whether dyskinesia present, unspecified whether manifestations fluctuate (HCC) (Primary Dx) 07/18/2025 1:00 PM CDT Therapy [facility] OP Occup Therapy [address] [place] [address] Terrazas, Berenice, OT Parkinson's disease, unspecified whether dyskinesia present, unspecified whether manifestations fluctuate (HCC) (Primary Dx) 07/18/2025 Plan of Care Documentation [facility] OP Occup Therapy [address] [place] [address] 07/12/2025 Telephone [facility] Neurology [address] [place] [address] [address] [place] [phone] Marlin Kirkland NP Order Change 07/11/2025 12:06 PM CDT Anesthesia Event [facility] Endoscopy [address] [place] [id number] Grupo Orozco MD 07/11/2025 11:00 AM CDT - 07/11/2025 11:30 AM CDT Surgery [facility] Endoscopy [address] [place] [id number] Catrachito Link MD COLONOSCOPY 07/11/2025 9:56 AM CDT - 07/11/2025 1:08 PM CDT Hospital Encounter [facility] Endoscopy [address] [place] [id number] Catrachito Link MD Discharge Disposition: Discharge to home or self care 07/11/2025 Orders Only [facility] Medicine Gastroenterology [address] [facility] Medical Office Building [address], [address] [place] [address] Bailey Merrill, DEVIN Abdominal pain (Primary Dx) 06/29/2025 11:00 AM CDT Office Visit [facility] Neurology [address] [place] [address] [place] [address] Marlin Kirkland NP Parkinson disease (HCC) (Primary Dx); Memory disturbance; Facial paresthesia 06/14/2025 Orders Only [facility] Medicine Gastroenterology [address] [place] [address] Medical Office [address], [address] [place] [address] Ayanna Venegas RN 05/31/2025 Orders Only [facility] Medicine Gastroenterology [address] [facility] Medical Office Building [address], [address] [place] [address] Ayanna Venegas RN from Last 3 Months Surgical History Surgery Date Site/Laterality Comments SECTION x4 HYSTERECTOMY 11/29/2014 - 11/28/2015 COLONOSCOPY POLYPECTOMY KNEE SURGERY 05/22/2025 Right [facility]etomy at [facility] [place] Medical History Medical History Date Comments Ventricular trigeminy episode af ter hysterectomy Lyme disease Hypertension Mitral valve regurgitation GAVIOTA (obstructive sleep apnea) duque s cpap Parkinson's disease (HCC) Possi ble early onset did not blanca pramipexole Colon polyp Cardiovascular stress test abnormal Motion sickness Diverticulitis of colon Family History Medical History Relation Name Comments [...] Not Answered Alcohol Use Standard Drinks/Week Comments Never 0 [...] file Legal Sex Female 9:09 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 Gender Identity Not on file Sexual Orientation Not on file Obstetrics History Last Filed Vital Signs Vital Sign Reading Time Taken Comments Blood Pressure 121/70 07/11/2025 12:55 PM CDT Pulse 65 07/11/2025 12:55 PM CDT Temperature 36.9 C (98.4 F) 07/11/2025 12:30 PM CDT Respiratory Rate 12 07/11/2025 12:55 PM CDT Oxygen Saturation 99% 07/11/2025 12:55 PM CDT Inhaled Oxygen Concentration - - Weight 93.4 kg (206 lb) 07/11/2025 10:34 AM CDT Height 167.6 cm (5' 6) 07/11/2025 10:34 AM CDT Body Mass Index 33.25 07/11/2025 10:34 AM CDT Plan of Treatment Upcoming Encounters Date Type Department Care Team (Latest Contact Info) Description 09/03/2025 10:00 AM CDT Hospital Encounter [facility] Cardiac Catheterization Lab [address] [place] [address] Víctor Sandoval MD [address], [address] [place] [id number] Cardiovascular stress test abnormal; SOB (shortness of breath); Atypical chest pain 09/03/2025 10:00 AM CDT - 09/03/2025 11:30 AM CDT Surgery [facility]iac [facility]atheterization Lab [address] [place] [address] Víctor Sandoval MD [address] [place] [address] LEFT HEART CATHETERIZATION WITH CORONARY ANGIOGRAPHY AND WITH OR WITHOUT LEFT VENTRICULOGRAM [address] Scheduled Procedures Name Priority Associated Diagnoses Date/Ti me COLONOSCOPY Colon cancer screening Health Maintenance Due Date Last Done Comments Depression Screening 1965 Hepatitis C Screening 1965 Hepatitis B Screening 1982 Regular Well Visit/Exam 18-64 1982 Zoster Vaccine (1 of 2) 2014 Covid-19 Vaccine (2024- season) 2025 09/19/2021, 01/10/2021, 12/20/2020 Influenza Vaccine (#1) 2025 , 10/01/2023, 08/21/2022, Additional history exists Breast Cancer Screening-Mammogram 08/22/2026 08/22/2025, 08/22/2025 DTaP/Tdap/Td Vaccine (3 - Td or Tdap) 11/14/2030 11/14/2020, 04/28/2008 Colon Cancer Screening-Colonoscopy 07/11/2035 07/11/2025, 12/19/2024, 11/18/2022, Additional history exists Colon Cancer Screening-CT Colonography Discontinued 07/11/2025, 12/19/2024, 11/18/2022, Additional history exists Colon Cancer Screening-DNA Stool Discontinued 07/11/2025, 12/19/2024, 11/18/2022, Additional history exists Colon Cancer Screening-FIT Discontinued 07/11, 12/19/2024, 11/18/2022, Additional history exists Colon Cancer Screening-Sigmoidoscopy Discontinued 07/11/2025, 12/19/2024, 11/18/2022, Additional history exists Pneumococcal vaccine <65 Aged Out No longer eligible based on patient's age to complete this topic Procedures Procedure Name Priority Date/Time Associated Diagnosis Comments STRESS TEST ONLY TREADMILL Routine 08/20 2:40 PM CDT SOB (shortness of breath) TRANSTHORACIC ECHO (TTE) COMPLETE W DOPPLER/CF WO CONTRAST Routine 08/14/2025 1:26 PM CDT Mitral valve insufficiency, unspecified etiology Pulmonary hypertension (HCC) US PELVIS W ENDOVAGINAL Schedule Routine, Read Routine (OP Routine) 08/14/2025 9:13 AM CDT Pelvic and perineal pain SCAN - OTHER ORDERS 08/10/2025 CTA HEAD NECK W WO CONTRAST Schedule Routine, Read Routine (OP Routine) 07/25/2025 9:28 AM CDT Facial paresthesia POCT CREATININE FOR CONTRAST EVALUATION Routine 07/25/2025 9:15 AM CDT COLONOSCOPY 07/11/2025 12:13 PM CDT EGD 07/11/2025 12:09 PM CDT ESOPHAGOGASTRODUODENOSCOPY 07/11 12:06 PM CDT Lower GI bleed LUQ pain Abnormal finding on imaging Blood in stool Bowel wall thickening LLQ abdominal pain COLONOSCOPY 07/11/2025 12:06 PM CDT Lower GI bleed LUQ pain Abnormal finding on imaging Blood in stool Bowel wall thickening LLQ abdominal pain from Last 3 Months Results * Stress Treadmill Test (08/20/2025 2:40 [...] by: Shashi Faria MD 08/20/2025 us Gilbert Campoverde MD CV STRESS PROCEDURES Taryn orozco Result * TRANSTHORACIC ECHO (TTE) COMPLETE W DOPPLER/CF WO CONTRAST (08/14/2025 1:26 PM CDT) Estimated EF 55-60 % CONS SCIMAGE EF Mod BP 64 % CONS SCIMAGE Anatomical Region Laterality Modality Ultrasound 08/14/2025 1:05 PM CDT Narrative 08/14/2025 4:47 PM CDT [facility] Cardiology [address] [facility], [address], [place] [address] P:[phone] P:[phone] Echocardiographic Report Patient Name: BIJAL DOUGLAS L : 1965 Study Date: 08/14/2025 1:05:20 PM Sex: F Economic Adviser: ARNIE Location: [facility] Ref Provider: GILBERT CAMPOVERDE Height(Cm): 168 BSA: 2.09 Weight(Kg): 93.4 Heart Rate: 62 BP: 121 / 70 Quality: Good Order Provider: GILBERT CAMPOVERDE PROCEDURES: Echocardiographic Report: Transthoracic echocardiogram with complete [...] FINDINGS: Interpretation Site: Exam was interpreted at [facility]. Left Ventricle: Normal left ventricular systolic [...] Normal sinus rhythm. Electronically Signed By: Gilbert Campoverde MD 08/14/2025 4:47:22 PM CDT Procedure Note Gilbert Campoverde MD - 08/14/2025 [facility] Cardiology [address], [address], [place] [address] P:[phone] P:[phone] Echocardiographic Report Patient Name: BIJAL DOUGLAS L : 1965 Study Date: 08/14/2025 1:05:20 PM Sex: F Economic Adviser: ARNIE Location: [facility] Ref Provider: GILBERT CAMPOVERDE Height(Cm): 168 BSA: 2.09 Weight(Kg): 93.4 Heart Rate: 62 BP: 121 / 70 Quality: Good Order Provider: GILBERT CAMPOVERDE PROCEDURES: Echocardiographic Report: Transthoracic echocardiogram with complete [...] FINDINGS: Interpretation Site: Exam was interpreted at [facility]. Left Ventricle: Normal left ventricular systolic [...] Normal sinus rhythm. Electronically Signed By: Gilbert Campoverde MD 08/14/2025 4:47:22 PM CDT Gilbert Campoverde MD CV ECHO PROCEDURES Final Result * US Pelvis W Endovaginal (08/14/2025 9:13 AM CDT) Anatomical Region Laterality Modality Pelvis N/A Ultrasound 08/16/2025 6:47 PM CDT Narrative 08/16/2025 6:48 PM CDT EXAM DESCRIPTION: US PELVIS W ENDOVAGINAL REASON FOR STUDY: R10.2 TECHNIQUE: Ultrasound of the pelvic contents was performed with transabdominal and transvaginal transducer. Grayscale, color Doppler and spectral Doppler techniques were utilized. COMPARISON: Correlation with CT abdomen and pelvis 01/05/2023 FINDINGS: UTERUS: Absent. RIGHT OVARY: The right ovary measures 1.2 x 1.2 x 1.5 cm. Arterial and venous blood flow is demonstrated to the ovary. No ovarian mass is seen. LEFT OVARY: The left ovary measures 1.2 x 1.0 x 1.7 cm. Arterial and venous blood flow is demonstrated to the ovary. No ovarian mass is seen. PELVIC FLUID: There is no significant free pelvic fluid. IMPRESSION: Previous hysterectomy. Normal sonographic appearance of the ovaries. THIS IS AN ELECTRONICALLY VERIFIED FINAL REPORT 08/16/2025 6:48 PM - Electronically signed by Nazario Bobby M.D. JR: Report ID: [id number] Reading Location: [id number] Procedure Note Nazario Bobby MD - 08/16/2025 EXAM DESCRIPTION: US PELVIS W ENDOVAGINAL REASON FOR STUDY: R10.2 TECHNIQUE: Ultrasound of the pelvic contents was performed with transabdominal and transvaginal transducer. Grayscale, color Doppler and spectral Doppler techniques were utilized. COMPARISON: Correlation with CT abdomen and pelvis 01/05/2023 FINDINGS: UTERUS: Absent. RIGHT OVARY: The right ovary measures 1.2 x 1.2 x 1.5 cm. Arterial and venous blood flow is demonstrated to the ovary. No ovarian mass is seen. LEFT OVARY: The left ovary measures 1.2 x 1.0 x 1.7 cm. Arterial and venous blood flow is demonstrated to the ovary. No ovarian mass is seen. PELVIC FLUID: There is no significant free pelvic fluid. IMPRESSION: Previous hysterectomy. Normal sonographic appearance of the ovaries. THIS IS AN ELECTRONICALLY VERIFIED FINAL REPORT 08/16/2025 6:48 PM - Electronically signed by Nazario Bobby M.D. JR: Report ID: [id number] Reading Location: [id number] us Anjana Rodrigez DO IMG US PROCEDURES Final Re sult * SCAN - OTHER ORDERS (08/10/2025) us Provider Scanning Final Result * CTA Head Neck W WO Contrast (07/25/2025 9:28 AM CDT) Anatomical Region Laterality Modality Head and Neck N/A Computed Tomogra phy 07/25/2025 9:58 AM CDT Narrative 07/25/2025 10:06 AM CDT EXAM DESCRIPTION: CTA HEAD AND NECK WITHOUT AND WITH CONTRAST REASON FOR STUDY: Unspecified laterality and sites facial paresthesia of unspecified duration. No provided history of trauma or inciting and/or aggravating events. History of Parkinson's disease. No provided surgical history. TECHNIQUE: Axial images were first obtained through the brain without contrast. Axial dynamic scanning technique with dynamic contrast enhancement through the intracranial and extracranial carotid and vertebral arteries. Multiplanar reconstruction. All stenosis measurements are based on NASCET criteria. 3D MIP images rendered on scanning unit and reviewed at time of interpretation. Automated exposure control was used as a dose optimization technique for this examination. CONTRAST TYPE/DOSE: 91 mL Optiray 350 injected via peripheral IV site without reported incident. COMPARISON: Ultrasound carotid duplex Doppler bilateral 10/23/2024; ultrasound thyroid 10/09/2022; relevant portions of CT chest without contrast 09/29/2022. FINDINGS: BRAIN: No acute intra-axial hemorrhage. No edema, mass effect, midline shift, or herniation. No evidence of acute territorial ischemia or infarct. No suspicious focal white matter lesions with preservation of the hightower-white junction. EXTRA-AXIAL SPACES: No extra-axial fluid collections. No unenhanced CT evidence of extra-axial mass. CALVARIUM: No acute calvarial fracture. SINUSES/MASTOIDS: Paranasal sinuses clear. Mastoid air cells well-developed and well aerated. ORBITS: No acute abnormality. Ocular lenses and globes normal in conformation and position. OTHER: No other significant abnormality. INTRACRANIAL VESSELS [place] OF IGLESIAS: The anterior, middle, posterior cerebral arteries are all patent. No focal stenosis. No aneurysm. POSTERIOR CIRCULATION: The distal vertebral arteries are patent as is the basilar artery. No aneurysm. BRAIN: No gross evidence of enhancing intracranial lesions. CAROTID CTA RIGHT CAROTIDS: No occlusion, stenosis, or evidence of dissection of the right carotid arterial system, noting tortuosity of the distal cervical segment of the right ICA. LEFT CAROTIDS: No occlusion, stenosis, or evidence of dissection of the left carotid arterial system. LEFT VERTEBRAL: Patent without evidence of stenosis or dissection. RIGHT VERTEBRAL: Patent, dominant, without evidence of stenosis or dissection. AORTIC ARCH: Three-vessel aortic arch. Patent subclavian arteries. NECK SOFT TISSUE: No acute abnormality. No thyroid nodule greater than 1 cm. INCLUDED LUNGS: No acute abnormality OTHER: No other significant finding. IMPRESSION: 1. No acute intracranial process. 2. No occlusion, focal stenosis, or aneurysm of the intracranial arterial vasculature. 3. No occlusion, stenosis, or dissection of the cervical arterial vasculature. THIS IS AN ELECTRONICALLY VERIFIED FINAL REPORT 07/25/2025 10:06 AM - Electronically signed by Trent Blackman M.D. TANK: TANK Report ID: [id number] Reading Location: [place] [id number] Procedure Note Trent Blackman MD - 07/25/2025 EXAM DESCRIPTION: CTA HEAD AND NECK WITHOUT AND WITH CONTRAST REASON FOR STUDY: Unspecified laterality and sites facial paresthesia of unspecified duration. No provided history of trauma or inciting and/or aggravating events. History of Parkinson's disease. No provided surgical history. TECHNIQUE: Axial images were first obtained through the brain without contrast. Axial dynamic scanning technique with dynamic contrast enhancement throughthe intracranial and extracranial carotid and vertebral arteries. Multiplanar reconstruction. All stenosis measurements are based on NASCET criteria. 3D MIP images rendered on scanning unit and reviewed at time of interpretation. Automated exposure control was used as a dose optimization technique forthis examination. CONTRAST TYPE/DOSE: 91 mL Optiray 350 injected via peripheral IV site without reported incident. COMPARISON: Ultrasound carotid duplex Doppler bilateral 10/23/2024; ultrasound thyroid 10/09/2022; relevant portions of CT chest withoutcontrast 09/29/2022. FINDINGS: BRAIN: No acute intra-axial hemorrhage. No edema, mass effect, midlineshift, or herniation. No evidence of acute territorial ischemia or infarct. No suspicious focal white matter lesions with preservation of the hightower-white junction. EXTRA-AXIAL SPACES: No extra-axial fluid collections. No unenhanced CT evidence of extra-axial mass. CALVARIUM: No acute calvarial fracture. SINUSES/MASTOIDS: Paranasal sinuses clear. Mastoid air cellswell-developed and well aerated. ORBITS: No acute abnormality. Ocular lenses and globes normal in conformation and position. OTHER: No other significant abnormality. INTRACRANIAL VESSELS [place] OF IGLESIAS: The anterior, middle, posterior cerebral arteries areall patent. No focal stenosis. No aneurysm. POSTERIOR CIRCULATION: The distal vertebral arteries are patent as isthe basilar artery. No aneurysm. BRAIN: No gross evidence of enhancing intracranial lesions. CAROTID CTA RIGHT CAROTIDS: No occlusion, stenosis, or evidence of dissection of the right carotid arterial system, noting tortuosity of the distal cervical segment of the right ICA. LEFT CAROTIDS: No occlusion, stenosis, or evidence of dissection of theleft carotid arterial system. LEFT VERTEBRAL: Patent without evidence of stenosis or dissection. RIGHT VERTEBRAL: Patent, dominant, without evidence of stenosis or dissection. AORTIC ARCH: Three-vessel aortic arch. Patent subclavian arteries. NECK SOFT TISSUE: No acute abnormality. No thyroid nodule greater than1 cm. INCLUDED LUNGS: No acute abnormality OTHER: No other significant finding. IMPRESSION: 1. No acute intracranial process. 2. No occlusion, focal stenosis, or aneurysm of the intracranialarterial vasculature. 3. No occlusion, stenosis, or dissection of the cervical arterial vasculature. THIS IS AN ELECTRONICALLY VERIFIED FINAL REPORT 07/25/2025 10:06 AM - Electronically signed by Trent Blackman M.D. TANK: TANK Report ID: [id number] Reading Location: [id number] Marlin Kirkland NP IMG CT PROCEDURES Final R esult * POCT creatinine for contrast evaluation (07/25/2025 9:15 AM CDT) Creatinine POC 0.70 0.60 - 1.10 mg/dL Comment:Testing performed by : [facility], [address] [place] [address], [place]., [address] Blood 07/25/2025 9:15 AM CDT 07/25/2025 9:15 AM CDT us Marlin Childress Isael VISUAL AID EXPERT POINT OF CARE TEST ORDERA BLES Final Result [id number] [id number] [facility] Department of [facility] [place] [place] [address] * Colonoscopy (07/11/2025 12:13 PM CDT) Anatomical Region Laterality Modality Other Narrative Procedure Note Catrachito Link MD - 07/11/2025 12:13 PM CDT ENDOSCOPY LAB Patient Name: Bijal Douglas Procedure Date: 07/11/2025 12:13 PM Date of : 1965 Admit Type: Outpatient Age: 59 Gender: Female Attending MD: Catrachito Link M.D., Room: [facility] ENDOSCOPY ROOM 04 Note Status: Finalized Procedure: Colonoscopy Indications: Hematochezia Providers: Catrachito Link M.D. Referring MD: Self Referral Medicines: Monitored Anesthesia Care Complications: No immediate [...] The scope was passed under direct vision.The [id number] was introduced through the anusand advanced to the cecum, identified by appendiceal orifice and ileocecal valve. The colonoscopy was performed without difficulty. The patient tolerated the procedure well. The quality of the bowel preparation was adequate. The bowel preparationused was GoLYTELY via split dose instruction. Findings: The perianal and digital rectal examinations were normal. Multiple small-mouthed diverticula were found in the sigmoid colon. Non-bleeding internal hemorrhoids were found during retroflexion. The hemorrhoids were medium-sized. Impression: - Diverticulosis in the sigmoid colon. - Non-bleeding internal hemorrhoids. Recommendation: - Return to referring provider as previouslyscheduled. - Repeat colonoscopy in 5 years for surveillance givern family history of colon cancer. Attending Participation: I personally performed the entire procedure. Electronically signed by Catrachito Link M.D. Catrachito Link M.D. 07/11/2025 12:40:10 PM Number of Addenda: 0 Note Initiated On: 07/11/2025 12:13 PM us Catrachito Link MD ENDOSCOPY PROCEDURES Final Result * EGD (07/11/2025 12:09 PM CDT) Anatomical Region Laterality Modality Other Narrative Procedure Note Catrachito Link MD - 07/11/2025 12:09 PM CDT ENDOSCOPY LAB Patient Name: Bijal Douglas Procedure Date: 07/11/2025 12:09 PM Date of : 1965 Admit Type: Outpatient Age: 59 Gender: Female Attending MD: Catrachito Link M.D., Room: [facility] ENDOSCOPY ROOM 04 Note Status: Finalized Procedure: Upper GI endoscopy Indications: Abdominal pain Providers: Catrachito Link M.D. Referring MD: Self Referral Medicines: Monitored Anesthesia Care Complications: No immediate complications. Estimated Blood Loss: Estimated blood loss: none. Procedure: Pre-Anesthesia Assessment: - The risks and benefits of the procedure and the sedation options and risks were discussed with the patient. All questions were answered and informed consent was obtained. - Immediately prior to administration ofmedications, the patient was re-assessed for adequacy to receive sedatives. - The risks and benefits of the [...] and oxygen saturations were monitored continuously. The [id number] was introduced through the mouth, and advanced to the second part of duodenum. Theupper GI endoscopy was accomplished without difficulty.The patient tolerated the procedure well. Findings: The examined esophagus was normal. The entire examined stomach was normal. The examined duodenum was normal. Impression: - Normal esophagus. - Normal stomach. - Normal examined duodenum. Recommendation: - Return to referring provider as previouslyscheduled. - Perform a colonoscopy today. - Refer to a general GI doctor for further workupof abdominal pain. - - Attending Participation: I personally performed the entire procedure. Electronically signed by Catrachito Link M.D. Catrachito Link M.D. 07/11/2025 1:00:46 PM Number of Addenda: 0 Note Initiated On: 07/11/2025 12:09 PM Catrachito Link MD ENDOSCOPY PROCEDURES Final Result from Last 3 Months Insurance [facility] Advance Directives For more information, please contact: [phone] * Full Code (Latest Code Status on File) Date Activated Date Inactivated Comments 07/11/2025 10:20 AM 07/11/2025 5:14 PM * Full Code Date Activated Date Inactivated Comments 12/19/2024 7:45 AM 12/19/2024 6:30 PM * Full Code Date Activated Date Inactivated Comments 11/18/2022 11:43 AM 11/18/2022 5:30 PM Care Teams Lead Shipper Relationship Specialty Start Date End Date Nancy Alvares NP [address] [place] [address] PCP - General Nurse Practitioner 10/08/21
--- OUTSIDE RECORDS SUMMARY | 2025-08-29 07:08 | XMS_ITS | Encounter Summary ---
Author Organization [facility] Address [address] [place] [address] Phone Care Team Providers Care Mortician Helper Name Role Phone Kiran Garvey MD Primary Care Provider + [phone] Kiran Garvey MD Primary Care Provider + [phone] Lorena Taylor MD Primary Care Provider + [phone] Dante Olivarez Primary Care Provider [phone] Morro Doyle MD Primary Care Provider [phone] Nancy Alvares NP Primary Care Provider + [phone] Encounter Details Date Type Department Care Team (Latest Contact Info) Description 02/10/2007 Orders Only [facility] Scanning, Provider Social History Tobacco Use Types Packs/Day Years Used Date Smoking Tobacco: Never Assessed Comments Unknown Sex and Gender Information Value Date Recorded Sex Assigned at Not on file Legal Sex Female 9:09 PM [employer] Gender Identity Not on file Sexual Orientation Not on file documented as of this encounter Plan of Treatment Upcoming Encounters Date Type Department Care Team (Latest Contact Info) Description 09/03/2025 10:00 AM CDT Hospital Encounter [facility] Cardiac Catheterization Lab [address] [place] [address] Víctor Sandoval MD [address] [place] [address] Cardiovascular stress test abnormal; SOB (shortness of breath); Atypical chest pain 09/03/2025 10:00 AM CDT - 09/03/2025 11:30 AM CDT Surgery [facility] Cardiac Catheterization Lab [address] [place] [address] Víctor Sandoval MD [address] [place], [place] [id number] LEFT HEART CATHETERIZATION WITH CORONARY ANGIOGRAPHY AND WITH OR WITHOUT LEFT VENTRICULOGRAM [id number] Scheduled Procedures Name Priority Associated Diagnoses Date/Ti me COLONOSCOPY Colon cancer screening documented as of this encounter Procedures Procedure Name Priority Date/Time Associated Diagnosis Comments SCAN - RADIOLOGY/IMAGING 02/10/2007 documented in this encounter Results * SCAN - RADIOLOGY/IMAGING (02/10/2007) Anatomical Region Laterality Modality Other us Provider Scanning Final Result documented in this encounter Visit Diagnoses Not on filedocumented in this encounter Care Teams Mortician Helper Relationship Specialty Start Date End Date Kiran Garvey MD [address] [place] [address] PCP - General 02/26/17 01/25/19 Kiran Garvey MD [address] [place] [address] PCP - General 03/21/15 02/25/17 Lorena Taylor MD [address] [facility] [place] [address] PCP - General Family Practice 01/26/19 03/31/21 Dante Olivarez PA [address] [place] [address] PCP - General Physician Scouring Pads Supervisor 04/01/21 06/09/21 Morro Doyle MD [address] [place] [address] PCP - General Internal Medicine 06/10/21 10/07/21 Nancy Alvares NP [address] [place] [address] PCP - General Nurse Practitioner 10/08/21 documented as of this encounter
--- OUTSIDE RECORDS SUMMARY | 2025-08-29 07:08 | XMS_ITS | Encounter Summary ---
Author Organization [facility] Address [address] [place] [address] Phone Care Team Providers Care Telephone Information Clerk Name Role Phone Kiran Garvey MD Primary Care Provider + [phone] Kiran Garvey MD Primary Care Provider + [phone] Lorena Taylor MD Primary Care Provider + [phone] Dante Olivarez Primary Care Provider [phone] Morro Doyle MD Primary Care Provider [phone] Nancy Alvares NP Primary Care Provider + [phone] Encounter Details Date Type Department Care Team (Latest Contact Info) Description 11/23/2006 Orders Only [facility] Scanning, Provider Social History Tobacco Use Types Packs/Day Years Used Date Smoking Tobacco: Never Assessed Comments Unknown Sex and Gender Information Value Date Recorded Sex Assigned at Not on file Legal Sex Female 9:09 PM 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 Gender Identity Not on file Sexual Orientation Not on file documented as of this encounter Plan of Treatment Upcoming Encounters Date Type Department Care Team (Latest Contact Info) Description 09/03/2025 10:00 AM CDT Hospital Encounter [facility] Cardiac Catheterization Lab [address] [place] [address] Víctor Sandoval MD [address] [place] [address] Cardiovascular stress test abnormal; SOB (shortness of breath); Atypical chest pain 09/03/2025 10:00 AM CDT - 09/03/2025 11:30 AM CDT Surgery [facility] Cardiac Catheterization Lab [address] [place] [address] Víctor Sandoval MD [address] [place], [place] [id number] LEFT HEART CATHETERIZATION WITH CORONARY ANGIOGRAPHY AND WITH OR WITHOUT LEFT VENTRICULOGRAM [id number] Scheduled Procedures Name Priority Associated Diagnoses Date/Ti me COLONOSCOPY Colon cancer screening documented as of this encounter Procedures Procedure Name Priority Date/Time Associated Diagnosis Comments SCAN - RADIOLOGY/IMAGING 11/23/2006 documented in this encounter Results * SCAN - RADIOLOGY/IMAGING (11/23/2006) Anatomical Region Laterality Modality Other us Provider Scanning Final Result documented in this encounter Visit Diagnoses Not on filedocumented in this encounter Care Teams Telephone Information Clerk Relationship Specialty Start Date End Date Kiran Garvey MD [address] [place] [address] PCP - General 02/26/17 01/25/19 Kiran Garvey MD [address] [place] [address] PCP - General 03/21/15 02/25/17 Lorena Taylor MD [address] [place] [address] PCP - General Family Practice 01/26/19 03/31/21 Dante Olivarez PA [address] [place] [address] PCP - General Physician Car Customizer 04/01/21 06/09/21 Morro Doyle MD [address] [place] [address] PCP - General Internal Medicine 06/10/21 10/07/21 Nancy Alvares NP [address] [place] [address] PCP - General Nurse Practitioner 10/08/21 documented as of this encounter
--- OUTSIDE RECORDS SUMMARY | 2025-08-29 07:08 | XMS_ITS | Encounter Summary ---
Author Organization [facility] Address [address] [place] [address] Phone Care Team Providers Care Central Communications Specialist Name Role Phone Kiran Garvey MD Primary Care Provider + [phone] Kiran Garvey MD Primary Care Provider + [phone] Lorena Taylor MD Primary Care Provider + [phone] Dante Olivarez Primary Care Provider [phone] Morro Doyle MD Primary Care Provider [phone] Nancy Alvares NP Primary Care Provider + [phone] Encounter Details Date Type Department Care Team (Latest Contact Info) Description 04/16/2006 Orders Only [facility] Scanning, Provider Social History Tobacco Use Types Packs/Day Years Used Date Smoking Tobacco: Never Assessed Comments Unknown Sex and Gender Information Value Date Recorded Sex Assigned at Not on file Legal 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 Female 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 Gender Identity Not on file Sexual Orientation Not on file documented as of this encounter Plan of Treatment Upcoming Encounters Date Type Department Care Team (Latest Contact Info) Description 09/03/2025 10:00 AM CDT Hospital Encounter [facility] Cardiac Catheterization Lab [address] [place] [address] Víctor Sandoval MD [address] [place] [address] Cardiovascular stress test abnormal; SOB (shortness of breath); Atypical chest pain 09/03/2025 10:00 AM CDT - 09/03/2025 11:30 AM CDT Surgery [facility] Cardiac Catheterization Lab [address] [place] [address] Víctor Sandoval MD [address] [place], [place] [id number] LEFT HEART CATHETERIZATION WITH CORONARY ANGIOGRAPHY AND WITH OR WITHOUT LEFT VENTRICULOGRAM [id number] Scheduled Procedures Name Priority Associated Diagnoses Date/Ti me COLONOSCOPY Colon cancer screening documented as of this encounter Procedures Procedure Name Priority Date/Time Associated Diagnosis Comments SCAN - RADIOLOGY/IMAGING 04/16/2006 documented in this encounter Results * SCAN - RADIOLOGY/IMAGING (04/16/2006) Anatomical Region Laterality Modality Other us Provider Scanning Final Result documented in this encounter Visit Diagnoses Not on filedocumented in this encounter Care Teams Central Communications Specialist Relationship Specialty Start Date End Date Kiran Garvey MD [address] [place] [address] PCP - General 02/26/17 01/25/19 Kiran Garvey MD [address] [place] [address] PCP - General 03/21/15 02/25/17 Lorena Taylor MD [address] [place] [address] PCP - General Family Practice 01/26/19 03/31/21 Dante Olivarez PA [address] [place] [address] PCP - General Physician Agricultural Labor Camp Manager 04/01/21 06/09/21 Morro Doyle MD [address] [place] [address] PCP - General Internal Medicine 06/10/21 10/07/21 Nancy Alvares NP [address] [place] [address] PCP - General Nurse Practitioner 10/08/21 documented as of this encounter
--- OUTSIDE RECORDS SUMMARY | 2025-08-29 07:08 | XMS_ITS | Encounter Summary ---
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 Gender Identity Not on file Sexual Orientation Not on file documented as of this encounter Plan of Treatment Upcoming Encounters Date Type Department Care Team (Latest Contact Info) Description 09/03/2025 10:00 AM CDT Hospital Encounter [facility] Cardiac Catheterization Lab [address] [place] [address] Víctor Sandoval MD [address] [place], [place] [id number] Cardiovascular stress test abnormal; SOB (shortness of breath); Atypical chest pain 09/03/2025 10:00 AM CDT - 09/03/2025 11:30 AM CDT Surgery [facility] Cardiac Catheterization Lab [address] [place] [address] Víctor Sandoval MD [address] [place], [place] [id number] LEFT HEART CATHETERIZATION WITH CORONARY ANGIOGRAPHY AND WITH OR WITHOUT LEFT VENTRICULOGRAM [address] Scheduled Procedures Name Priority Associated Diagnoses Date/Ti me COLONOSCOPY Colon cancer screening documented as of this encounter Procedures Procedure Name Priority Date/Time Associated Diagnosis Comments SCAN - LABS 04/30/2025 documented in this encounter Results * SCAN - LABS (04/30/2025) us Provider Scanning Final Result documented in this encounter Visit Diagnoses Not on filedocumented in this encounter Care Teams Welcome Wagon Host/Hostess Relationship Specialty Start Date End Date Nancy Alvares NP [address] [place] [address] PCP - General Nurse Practitioner 10/08/21 documented as of this encounter
--- OUTSIDE RECORDS SUMMARY | 2025-08-29 07:08 | XMS_ITS | Encounter Summary ---
Author Organization [facility] Address [address] [place] [address] Care Team Providers Care Content Strategist Name Role Phone Unavailable Primary Care Provider Unavailabl e Encounter Details Date Type Department Care Team (Late st Contact Info) Description 10/12/2024 Lab Requisition [facility] - DermPath Lab [address] [facility] [place] [address] Bharati Jason DO [address] [facility] [address] [place] [address] Social History Tobacco Use Types Packs/Day Years Used Date Smoking Tobacco: Never Assessed Comments Unknown Sex and Gender Information Value Date Recorded Sex Assigned at Not on file Legal Sex Female 6:37 AM CO FOUNDER AND CEO Gender Identity Not on file Sexual Orientation Not on file documented as of this encounter Plan of Treatment Not on file documented as of this encounter Procedures Procedure Name Priority Date/Time Associated Diagnosis Comments DERMATOPATHOLOGY Routine 10/12/2024 2:07 PM CO FOUNDER AND CEO documented in this encounter Results * DERMATOPATHOLOGY (10/12/2024 2:07 PM CO FOUNDER AND CEO) Case Report Dermatopathology Report Case: [id number] Authorizing Provider: Bharati Jason DO Collected: 10/12/2024 02:07 PM Ordering Location: [facility] Physician [facility] - Received: 10/13/2024 11:00 AM DermPath Lab Pathologist: Kerry Garcia MD Specimen: Skin, left medial cheek 4 12:27 PM [employer] FOUNDER AND CEO DERMATOPATHOLOGY LABORATORY Final Diagnosis Specimen A. SKIN, left medial cheek: ACTINIC KERATOSIS (L57.0) 4 12:27 PM CO FOUNDER AND CEO DERMATOPATHOLOGY LABORATORY at [address] [facility] Clinical History R/O BCC 12:27 PM [facility] DERMATOPATHOLOGY LABORATORY Gross Description Specimen A: Received is one formalin filled container labeled with the patient's name and designated left medial cheek. The specimen consists of a shave biopsy measuring 4x2x1 mm. Jar 0. 12:27 PM [facility] DERMATOPATHOLOGY LABORATORY Microscopic Description Specimen A. SKIN, left medial cheek: There is focal parakeratosis. The lower half of the epidermis shows disorderly maturation of keratinocytes with nuclear pleomorphism. 12:27 PM [facility] DERMATOPATHOLOGY LABORATORY Disclaimer An external and internal positive and negative controls are appropriate for the histochemical, immunohistochemical and immunofluorescence stain(s) in this case (if any), except where stated explicitly. The performance characteristics of the stain(s) cited in this report were developed and its performance characteristic determined by the Dermatopathology Laboratory at [facility], directed by Dr. Pebbles Leavitt. These tests need not be, and therefore are not, approved by the [place] Food and Drug Administration. The tests are used for clinical purposes. Billing Codes Specimen Charges Stain Charges 75597 1 4 12:27 PM [facility] DERMATOPATHOLOGY LABORATORY Embedded Images 12:27 PM [facility] DERMATOPATHOLOGY LABORATORY Pathology/Cytolo gy TISSUE SPECIMEN FROM SKIN / Unknown 10/12/2024 2:07 PM CO FOUNDER AND CEO 10/13/2024 11:00 AM CO FOUNDER AND CEO us Bharati Jason DO LAB - PATHOLOGY/CYTOLOGY ORDERABLES Final Result DERMATOPATHOLOGY LABORATORY [facility] - Department of Dermatology [address] [phone] documented in this encounter Visit Diagnoses Not on filedocumented in this encounter
--- OUTSIDE RECORDS SUMMARY | 2025-08-29 07:08 | XMS_ITS | Encounter Summary ---
Author Organization [facility] Address [address] [place] [address] Phone Care Team Providers Care Level Designer Name Role Phone Kiran Garvey MD Primary Care Provider + [phone] Kiran Garvey MD Primary Care Provider + [phone] Lorena Taylor MD Primary Care Provider + [phone] Dante Olivarez Primary Care Provider [phone] Morro Doyle MD Primary Care Provider [phone] Nancy Alvares NP Primary Care Provider + [phone] Encounter Details Date Type Department Care Team (Latest Contact Info) Description 02/11/2004 Orders Only [facility] Scanning, Provider Social History Tobacco Use Types Packs/Day Years Used Date Smoking Tobacco: Never Assessed Comments Unknown Sex and Gender Information Value Date Recorded Sex Assigned at Not on file Legal 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 Female 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 Gender Identity Not on file Sexual Orientation Not on file documented as of this encounter Plan of Treatment Upcoming Encounters Date Type Department Care Team (Latest Contact Info) Description 09/03/2025 10:00 AM CDT Hospital Encounter [facility] Cardiac Catheterization Lab [address] [place] [address] Víctor Sandoval MD [address] [place] [address] Cardiovascular stress test abnormal; SOB (shortness of breath); Atypical chest pain 09/03/2025 10:00 AM CDT - 09/03/2025 11:30 AM CDT Surgery [facility] Cardiac Catheterization Lab [address] [place] [address] Víctor Sandoval MD [address] [place], [place] [id number] LEFT HEART CATHETERIZATION WITH CORONARY ANGIOGRAPHY AND WITH OR WITHOUT LEFT VENTRICULOGRAM [id number] Scheduled Procedures Name Priority Associated Diagnoses Date/Ti me COLONOSCOPY Colon cancer screening documented as of this encounter Procedures Procedure Name Priority Date/Time Associated Diagnosis Comments SCAN - RADIOLOGY/IMAGING 02/11/2004 documented in this encounter Results * SCAN - RADIOLOGY/IMAGING (02/11/2004) Anatomical Region Laterality Modality Other us Provider Scanning Final Result documented in this encounter Visit Diagnoses Not on filedocumented in this encounter Care Teams Level Designer Relationship Specialty Start Date End Date Kiran Garvey MD [address] [place] [address] PCP - General 02/26/17 01/25/19 Kiran Garvey MD [address] [place] [address] PCP - General 03/21/15 02/25/17 Lorena Taylor MD [address] [place] [address] PCP - General Family Practice 01/26/19 03/31/21 Dante Olivarez PA [address] [place] [address] PCP - General Physician Asphalt Roller Person 04/01/21 06/09/21 Morro Doyle MD [address] [place] [address] PCP - General Internal Medicine 06/10/21 10/07/21 Nancy Alvares NP [address] [place] [address] PCP - General Nurse Practitioner 10/08/21 documented as of this encounter
--- OUTSIDE RECORDS SUMMARY | 2025-08-29 07:08 | XMS_ITS | Encounter Summary ---
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 Gender Identity Not on file Sexual Orientation Not on file documented as of this encounter Plan of Treatment Upcoming Encounters Date Type Department Care Team (Latest Contact Info) Description 09/03/2025 10:00 AM CDT Hospital Encounter [facility] Cardiac Catheterization Lab [address] [place] [address] Víctor Sandoval MD [address] [facility], [address] [place] [address] Cardiovascular stress test abnormal; SOB (shortness of breath); Atypical chest pain 09/03/2025 10:00 AM CDT - 09/03/2025 11:30 AM CDT Surgery [facility] Cardiac Catheterization Lab [address] [place] [address] Víctor Sandoval MD [address] [place] [address] LEFT HEART CATHETERIZATION WITH CORONARY ANGIOGRAPHY AND WITH OR WITHOUT LEFT VENTRICULOGRAM [id number] Scheduled Procedures Name Priority Associated Diagnoses Date/Ti me COLONOSCOPY Colon cancer screening documented as of this encounter Procedures Procedure Name Priority Date/Time Associated Diagnosis Comments SCAN - RADIOLOGY/IMAGING 10/08/2021 documented in this encounter Results * SCAN - RADIOLOGY/IMAGING (10/08/2021) Anatomical Region Laterality Modality Other us Provider Scanning Final Result documented in this encounter Visit Diagnoses Not on filedocumented in this encounter Care Teams Newspaper Distributor Supervisor Relationship Specialty Start Date End Date Nancy Alvares NP [address] [place] [address] PCP - General Nurse Practitioner 10/08/21 documented as of this encounter
--- OUTSIDE RECORDS SUMMARY | 2025-08-29 07:08 | XMS_ITS | Encounter Summary ---
Author Organization [facility] Address [address] [place] [address] Phone Care Team Providers Care Wash Mill Operator Name Role Phone Kiran Garvey MD Primary Care Provider + [phone] Kiran Garvey MD Primary Care Provider + [phone] Lorena Taylor MD Primary Care Provider + [phone] Dante Olivarez Primary Care Provider [phone] Morro Doyle MD Primary Care Provider [phone] Nancy Alvares NP Primary Care Provider + [phone] Encounter Details Date Type Department Care Team (Latest Contact Info) Description 04/13/2005 Orders Only [facility] Scanning, Provider Social History Tobacco Use Types Packs/Day Years Used Date Smoking Tobacco: Never Assessed Comments Unknown Sex and Gender Information Value Date Recorded Sex Assigned at Not on file Legal Sex Female 9: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 Gender Identity Not on file Sexual Orientation Not on file documented as of this encounter Plan of Treatment Upcoming Encounters Date Type Department Care Team (Latest Contact Info) Description 09/03/2025 10:00 AM CDT Hospital Encounter [facility] Cardiac Catheterization Lab [address] [place] [address] Víctor Sandoval MD [address], [address] [place] [address] Cardiovascular stress test abnormal; SOB (shortness of breath); Atypical chest pain 09/03/2025 10:00 AM CDT - 09/03/2025 11:30 AM CDT Surgery [facility] Cardiac Catheterization Lab [address] [place] [address] Víctor Sandoval MD [address] [place], [place] [id number] LEFT HEART CATHETERIZATION WITH CORONARY ANGIOGRAPHY AND WITH OR WITHOUT LEFT VENTRICULOGRAM [address]6967 Scheduled Procedures Name Priority Associated Diagnoses Date/Ti me COLONOSCOPY Colon cancer screening documented as of this encounter Procedures Procedure Name Priority Date/Time Associated Diagnosis Comments SCAN - RADIOLOGY/IMAGING 04/13/2005 documented in this encounter Results * SCAN - RADIOLOGY/IMAGING (04/13/2005) Anatomical Region Laterality Modality Other us Provider Scanning Final Result documented in this encounter Visit Diagnoses Not on filedocumented in this encounter Care Teams Wash Mill Operator Relationship Specialty Start Date End Date Kiran Garvey MD [address] [place] [address] PCP - General 02/26/17 01/25/19 Kiran Garvey MD [address] [place] [address] PCP - General 03/21/15 02/25/17 Lorena Taylor MD [address] [place] [address] PCP - General Family Practice 01/26/19 03/31/21 Dante Olivarez PA [address] [place] [address] PCP - General Physician Mold Maker Helper 04/01/21 06/09/21 Morro Doyle MD [address] [place] [address] PCP - General Internal Medicine 06/10/21 10/07/21 Nancy Alvares NP [address] [place] [address] PCP - General Nurse Practitioner 10/08/21 documented as of this encounter
--- OUTSIDE RECORDS SUMMARY | 2025-08-29 07:08 | XMS_ITS | Encounter Summary ---
Author Organization [facility] Address [address] [place] [address] Phone Care Team Providers Care Personal Companion Name Role Phone Kiran Garvey MD Primary Care Provider + [phone] Kiran Garvey MD Primary Care Provider + [phone] Lorena Taylor MD Primary Care Provider + [phone] Dante Olivarez Primary Care Provider [phone] Morro Dyole MD Primary Care Provider [phone] Nancy Alvares NP Primary Care Provider + [phone] Encounter Details Date Type Department Care Team (Latest Contact Info) Description 11/10/2006 Orders Only [facility] Scanning, Provider Social History Tobacco Use Types Packs/Day Years Used Date Smoking Tobacco: Never Assessed Comments Unknown Sex and Gender Information Value Date Recorded Sex Assigned at Not on file 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 Gender Identity Not on file Sexual Orientation Not on file documented as of this encounter Plan of Treatment Upcoming Encounters Date Type Department Care Team (Latest Contact Info) Description 09/03/2025 10:00 AM CDT Hospital Encounter [facility] Cardiac Catheterization Lab [address] [place] [address] Víctor Sandoval MD [address], [address] [place] [address] Cardiovascular stress test abnormal; SOB (shortness of breath); Atypical chest pain 09/03/2025 10:00 AM CDT - 09/03/2025 11:30 AM CDT Surgery [facility] Cardiac Catheterization Lab [address] [place] [address] Víctor Sandoval MD [address] [place], [place] [id number] LEFT HEART CATHETERIZATION WITH CORONARY ANGIOGRAPHY AND WITH OR WITHOUT LEFT VENTRICULOGRAM [address] Scheduled Procedures Name Priority Associated Diagnoses Date/Ti me COLONOSCOPY Colon cancer screening documented as of this encounter Procedures Procedure Name Priority Date/Time Associated Diagnosis Comments SCAN - RADIOLOGY/IMAGING 11/10/2006 documented in this encounter Results * SCAN - RADIOLOGY/IMAGING (11/10/2006) Anatomical Region Laterality Modality Other us Provider Scanning Final Result documented in this encounter Visit Diagnoses Not on filedocumented in this encounter Care Teams Personal Companion Relationship Specialty Start Date End Date Kiran Garvey MD [address] [place] [address] PCP - General 02/26/17 01/25/19 Kiran Garvey MD [address] [place] [address] PCP - General 03/21/15 02/25/17 Lorena Taylor MD [address] [place] [address] PCP - General Family Practice 01/26/19 03/31/21 Dante Olivarez PA [address] [place] [address] PCP - General Physician Applied Psychology Professor 04/01/21 06/09/21 Morro Doyle MD [address] [place] [address] PCP - General Internal Medicine 06/10/21 10/07/21 Nancy Alvares NP [address] [place] [address] PCP - General Nurse Practitioner 10/08/21 documented as of this encounter
--- OUTSIDE RECORDS SUMMARY | 2025-08-29 07:09 | XMS_ITS | Data Portability ---
Author Organization [place] [facility], Main Office Address [address] [place] [address] Assessment Encounter Date Assessment Date Assessment LastModified [...] answered. Patient verbalized understanding of treatment plan [email or web address] Not available 06/04/2025 19:37:56 07/18/2025 07/18/2025 HPI: 59 year old female presents today for 2nd postop follow up of right knee and left hip pain new problem. Right Knee: Postop followup after undergoing right knee arthroscopy, partial medial and lateral meniscectomy on 05/22/25. She is approximately 8 weeks postop. Reports nighttime pain, morning stiffness, and hypersensitivity over the medial aspect of knee. Currently rates her pain 2/10. Unable to take NSAIDs, use ice, heat, and [place] oil for pain. Pain is aggravated by prolonged use. Left Hip: Pain has been ongoing for several years but has worsened in the past week. Pain is constant and localized to the anterior/groin region. Pain radiates down the anterior leg and gluteal region. Aggravating factors include walking, standing, and sitting. She experiences severe pain and limping after walking 4 to 5 blocks. She previously reported hip popping and catching, but these symptoms have not occurred recently. Currently rates pain 7/10. She has tried biofreeze, castor oil, and ice with minimal relief. Denies any parasthesia. Physical Exam: Knee General: Normal appearance. No acute distress. Inspection: Incisions are well healed. No evidence of swelling, erythema, bruising or deformity. Palpation: Tenderness to palpation over anterior medial femoral condyle and medial joint line ROM: Full ROM Gait: Antalgic gait Special Test: Pain with terminal flexion. Positive Antonino, Negative Lachmann, No valgus or varus instability. Negative Posterior Draw. Motor: 5/5 strength. Sensation: Sensation intact. Hip General: Normal appearance. No acute distress. Inspection: No evidence of swelling, erythema, bruising or deformity. Palpation: Tenderness over the anterior hip ROM: Full ROM Gait: Antalgic gait Special Test: Mild pain with CARLOS A and Log roll. Negative FADIR. Negative straight leg. Vague Motor: 5/5 strength. Sensation: Sensation intact. 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 Assessment & Plan: Knee Discussed that we are most likely now dealing with osteoarthritis pain and sxs. We will being a course of PT and can discuss cortisone or gel injections next visit. Hip Due to significant pain we will order hip fluor guided injection. Discussed this will be be therapeutic and helpful diagnostic tool. We will also begin PT for the hip. Follow Up: 6 weeks. All questions were answered. Patient verbalized understanding of treatment plan [email or web address] Not available 07/18/2025 11:51:25 Plan of Treatment Reminders Order Date Submit Date Provider Last Modified By Organization Details Last Modified Time Details Appointments Any 5 2024 08:30A M Cody Hilario MD Not available Not available Not available Lab None recorded. Referral physical therapist referral - Please schedule pt for R knee post op, partial and lateral meniscect vern & osteoarth ritis. thanks 2024 025 Not available 07/18/2025 14:07:13 physical therapist referral - Please schedule pt for L hip. Thanks 2024 025 Not available 07/18/2025 14:07:46 physical therapist referral - Please schedule pt for R knee. post meniscect vern. Thanks 2024 025 [facility], [address], [address], [place], [address], 06/05/2025 08:52:30 Procedures injection , hip, fluoro guidance (PROC) - 4cc 1% Lidocaine & 40mg Depomedro l Precertif ication Required? : N 2024 025 miriam [facility], [address] [facility], [place], [address], 07/18/2025 11:51:33 Surgeries None recorded. Imaging XR, hip + pelvis, unilatera l 2024 025 [email or web address] [facility] [place], [address], [place], [address], 07/18/2025 11:51:33 XR, hip + pelvis, unilatera l 2024 025 [facility] [place], [address], [place], [address], 05/02/2025 13:35:10 XR, knee, 3 view 2024 025 [facility] [place], [address], [place], [address], 05/02/2025 13:34:07 Medication Orders ibuprofen 800 mg tablet 2024 025 [facility]13, [address], [id number], 06/04/2025 19:38:46 hydrocodo ne 5 mg-acetam inophen 325 mg tablet 2024 025 [facility]10012, [address], [id number], 06/04/2025 16:09:28 Patient TargetsNo targets recorded. Patient InstructionsNo instructions recorded. Reason for Referral Physical Therapist Referral for Pain of right knee joint R knee Please schedule pt for R knee. post meniscectomy. Thanks Referring Physician: Dayana Castro, Orthopedic Surgery, Encounter Date: 06/04/2025 Physical Therapist Referral for Osteoarthritis of right knee joint R knee post op, osteoarthritis Please schedule pt for R knee post op, partial and lateral meniscectomy & osteoarthritis. thanks Referring Physician: Dayana Castro, Orthopedic Surgery, Encounter Date: 07/18/2025 Physical Therapist Referral for Pain of hip region L hip Please schedule pt for L hip. Thanks Referring Physician: Dayana Castro, Orthopedic Surgery, Encounter Date: 07/18/2025 Results Created Date Observation Date Name Description Value Unit Range Abnormal Flag Note LastModifiedBy Organization Detail LastModifiedTime 05/02/20 25 XR, hip + pelvi s, unila teral No observ ation record ed. [facility] [place] [address], [place], [address], 05/02/2025 09:44:26 05/02/20 25 XR, knee, 3 view No observ ation record ed. [facility] [place] [address], [place], [address], 05/02/2025 09:44:35 05/03/20 25 04/19/2025 MRI, hip, w/o contr ast No observ ation record ed. Not Available 05/03 15:38:20 05/03/20 25 04/19/2025 MRI, knee, w/o contr ast No observ ation record ed. [email or web address] Not Available 05/03 15:41:23 07/18/20 25 XR, hip + pelvi s, unila teral No observ ation record ed. [email or web address] [facility] [place] [address], [place], [address], 07/18/2025 11:02:38 Result Notes None recorded. Problems Name Problem SNOMED Code Status Onset Date Resolution Date Notes Provider Name and Address Organization Details Recorded Time Hypertensi ve disorder 37403689 Active 2018 Not Available [employer] 3 21:17:44 Pain of right knee joint 4442342845693 00 Active 2024 SOHEILA Cerda, [place] Oswaldo Barrera [place] [employer] [facility] 5 09:44:07 Pain of hip region 15476246 Active 2024 SOHEILA Cerda, [place] [facility] [employer] [facility] 5 09:44:19 Pain of hip region 10500821 Active 2024 COURTNEY Oropeza null, [facility] 5 10:09:44 Osteoarthr itis of right knee joint 7462388044531 00 Active 2024 Rut Ramos ATC L null, [facility] 5 10:39:06 Osteoarthr itis of hip 213868401 Active 2024 Rut Ramos ATC L null, [facility] 5 10:42:10 Notes:Pt states one of her v story in her heart leak mildly Problem Notes None recorded. Procedures Surgical History Date Name Laterality Status Provider Name and Address Organization Details Recorded Time Knee Surgery completed COURTNEY Oropeza [facility] 06/28/2025 08:03:38 section completed Varsha Kim CNA [facility] 05/02/2025 09:53:37 Imaging Results None recorded. Procedure [...] hydrocodone 5 mg-acetamin ophen 325 mg tablet TAKE 1 TABLET BY MOUTH EVERY 6 HOURS active Not Available Not Available No t Available phenazopyri dine 200 mg tablet 07/04 completed [...] Not Available No t Available Afluria Quad (PF) 60 mcg (15 mcg x 4)/0.5 mL IM syringe ADM 0.5ML IM UTD 05/02 completed Not Available Not Available Not Available [employer] COVID-19 Ag Self Test kit TEST DIRECTED TODAY active Not Available Not Available No t Available Vitals Date Recorded Body height Body mass index (BMI) Body weight Provider Name and Address Organization Details Last Updated DateTime 05/02/2025 167.64 cm 31.3 kg/m2 69256.92 g Varsha Kim CNA [facility] [employer] 05/02/2025 09:50:50 Date Recorded Body height Provider Name an d Address Organization Details Last Updated DateTime 06/04/2025 167.64 [facility] 06/04/2025 15:26:24 Date Recorded Body height Body mass index (BMI) Body weight Provider Name and Address Organization Details Last Updated DateTime 07/18/2025 167.64 cm 31.3 kg/m2 53385.92 g Varsha Kim CNA [facility] [employer] 07/18/2025 09:56:13 Social History Question Answer Notes LastModified by Organizat ion Details LastModified Time Tobacco Smoking Status Never Smoker SOHEILA Cerda [facility] [employer] 05/02/2025 09:53:15 What Was The Date Of Your Most Recent Tobacco Screening? 07/18/2025 Information not available 07/18/2025 Sex: Unknown Functional Status Question Answer Note [...] virus, quadrivalent, preservative 8 completed Not Available [facility] 01/27/2023 21:18:27 Past Encounters Encounter ID Performer Location Encounter Start Date Encounter Closed Date Diagnosis/Indication Diagnosis SNOMED-CT Code Diagnosis ICD10 Code Diagnosis IMO Codes Diagnosis Note [id number] Cody Hilario MD [facility] [place] [address] [place] [address] 05/02/2025 09:33:22 05/02/2025 10:54:33 Pain of right knee joint 9846511674 17923 M25.561 151495 Pain of hip region 99051 002 M25.848 5665227 [id number] Cody Hilario MD [facility] [place] [address] [place] [address] 06/04/2025 15:21:32 06/04/2025 15:54:35 Pain of right knee joint 3567219125 53336 M25.561 973488 History of operative procedure on knee 060439554 Z98.890 [id number] Cody Hilario MD [facility] [place] [address] [place] [address] 07/18/2025 09:50:32 07/18/2025 10:43:15 Pain of right knee joint 9738736692 77107 M25.561 108745 Pain of hip region 74299 002 M25.552 433973 Osteoarthr itis of right knee joint 2123775398 28460 M17.11 65070157 Osteoarthritis of hip 23 5528538 M16.12 Health Concerns Section Related Observation LastModified by Organization Detai ls LastModified Time None Recorded Concern Status LastModified by Organization Details LastModified Time None Recorded Advance Directives Directive None Recorded Payers Insurance Date Sequence Insurance Name Policy Number Policy Duarte Covered Member ID Duarte Member ID Guarantor Name 04/30/2025 1 [facility] [id number] Song Kyle [id number] Bijal Kyle 06/04/2025 1 [place] [id number] Song Kyle [id number] Bijal Kyle 07/18/2025 1 [facility] [id number] Bijal Kyle [id number] Bijal Kyle OBGyn Episode No OBEpisode recorded.
--- OUTSIDE RECORDS SUMMARY | 2025-08-29 07:09 | XMS_ITS | Encounter Summary ---
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 Gender Identity Not on file Sexual Orientation Not on file documented as of this encounter Plan of Treatment Upcoming Encounters Date Type Department Care Team (Latest Contact Info) Description 09/03/2025 10:00 AM CDT Hospital Encounter [facility] Cardiac Catheterization Lab [address] [place] [address] Víctor Sandoval MD [address], [address] [place] [address] Cardiovascular stress test abnormal; SOB (shortness of breath); Atypical chest pain 09/03/2025 10:00 AM CDT - 09/03/2025 11:30 AM CDT Surgery [facility] Cardiac Catheterization Lab [address] [place] [address] Víctor Sandoval MD [address] [place] [address] LEFT HEART CATHETERIZATION WITH CORONARY ANGIOGRAPHY AND WITH OR WITHOUT LEFT VENTRICULOGRAM [id number] Scheduled Procedures Name Priority Associated Diagnoses Date/Ti me COLONOSCOPY Colon cancer screening documented as of this encounter Procedures Procedure Name Priority Date/Time Associated Diagnosis Comments SCAN - RADIOLOGY/IMAGING 06/30/2021 documented in this encounter Results * SCAN - RADIOLOGY/IMAGING (06/30/2021) Anatomical Region Laterality Modality Other us Provider Scanning Final Result documented in this encounter Visit Diagnoses Not on filedocumented in this encounter Care Teams Scrap Crusher Relationship Specialty Start Date End Date Morro Doyle MD [address] [facility] [address] [place] [address] PCP - General Internal Medicine 06/10/21 10/07/21 Nancy Alvares NP [address] [place] [address] PCP - General Nurse Practitioner 10/08/21 documented as of this encounter
--- OUTSIDE RECORDS SUMMARY | 2025-08-29 07:09 | XMS_ITS | Encounter Summary ---
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 Gender Identity Not on file Sexual Orientation Not on file documented as of this encounter Plan of Treatment Upcoming Encounters Date Type Department Care Team (Latest Contact Info) Description 09/03/2025 10:00 AM CDT Hospital Encounter [facility] Cardiac Catheterization Lab [address] [place] [address] Víctor Sandoval MD [address], [address] [place] [address] Cardiovascular stress test abnormal; SOB (shortness of breath); Atypical chest pain 09/03/2025 10:00 AM CDT - 09/03/2025 11:30 AM CDT Surgery [facility] Cardiac Catheterization Lab [address] [place] [address] Víctor Sandoval MD [address] [place] [address] LEFT HEART CATHETERIZATION WITH CORONARY ANGIOGRAPHY AND WITH OR WITHOUT LEFT VENTRICULOGRAM [id number] Scheduled Procedures Name Priority Associated Diagnoses Date/Ti me COLONOSCOPY Colon cancer screening documented as of this encounter Procedures Procedure Name Priority Date/Time Associated Diagnosis Comments SCAN - RADIOLOGY/IMAGING 09/25/2021 documented in this encounter Results * SCAN - RADIOLOGY/IMAGING (09/25/2021) Anatomical Region Laterality Modality Other us Provider Scanning Final Result documented in this encounter Visit Diagnoses Not on filedocumented in this encounter Care Teams Waste Management Specialist Relationship Specialty Start Date End Date Morro Doyle MD [address] [facility] [address] [place], [place] [address] PCP - General Internal Medicine 06/10/21 10/07/21 Nancy Alvares NP [address] [place] [address] PCP - General Nurse Practitioner 10/08/21 documented as of this encounter
[2025-08-29 07:28] LABS: Hematocrit 41.5 % (37.0-47.0); Hemoglobin 13.3 g/dL (12.0-15.0); Immature Granulocyte Percent A 0.2 % (0-0.5); Lymphocytes Absolute Auto 1.98 K/mm3 (0.9-3.2); Mean Corpuscular HGB Conc 32.0 g/dl (32-36); Mean Corpuscular Hemoglobin 29.1 pg (26-34); Mean Corpuscular Volume 90.8 fl (80-100); Nucleated Red Blood Cells Absolute Auto 0.000 K/mm3 (0.0-0.012); Nucleated Red Blood Cells Perc 0.0 % (0.0-0.2); Platelet Count Result 290 k/mm3 (150-375); Red Blood Count 4.57 M/mm3 (4.2-5.4); White Blood Count 5.6 K/mm3 (4.5-10.0)
[2025-08-29 07:48] LABS: Alanine Aminotransferase 40 U/L (6-35); Albumin Level 4.2 g/dL (3.5-5.1); Alkaline Phosphatase 89 U/L (38-126); Anion Gap 7 mmol/L (4-12); Aspartate Amino Transferase 47 U/L (14-36); Bilirubin,Total 0.8 mg/dL (0.2-1.3); Blood Urea Nitrogen 15 mg/dL (7-17); Calcium 9.4 mg/dL (8.4-10.2); Carbon Dioxide 30 mmol/L (22-30); Chloride 102 mmol/L (98-107); Estimated Glomerular Filt Rate > 60; Glucose 103 mg/dL (65-110); Potassium 4.6 mmol/L (3.4-5.0); Sodium 139 mmol/L (137-145); Total Protein 7.5 g/dL (6.3-8.2)
== END 2025-08-29 07:03 | disposition home or self-care (01) ==
LOC: ANHLAB 07:03
PROVIDERS: PCP Nurse Practitioner Family; Visit Provider Internal Medicine Cardiovascular Disease
DX: R07.89 Other chest pain (principal); R06.02 Shortness of breath; R94.39 Abnormal result of other cardiovascular function study; Z01.812 Encounter for preprocedural laboratory examination
CPT/HCPCS: 36415; 80053; 85025

== ENCOUNTER 2025-11-02 10:06 | Outpatient (CLI) | payer OTHER, SELFPAY ==
[2025-11-02 11:08] LABS: Hematocrit 42.1 % (37.0-47.0); Hemoglobin 13.3 g/dL (12.0-15.0); Immature Granulocyte Percent A 0.2 % (0-0.5); Lymphocytes Absolute Auto 2.44 K/mm3 (0.9-3.2); Mean Corpuscular HGB Conc 31.6 g/dl (32-36); Mean Corpuscular Hemoglobin 29.4 pg (26-34); Mean Corpuscular Volume 92.9 fl (80-100); Nucleated Red Blood Cells Absolute Auto 0.000 K/mm3 (0.0-0.012); Nucleated Red Blood Cells Perc 0.0 % (0.0-0.2); Platelet Count Result 339 k/mm3 (150-375); Red Blood Count 4.53 M/mm3 (4.2-5.4); White Blood Count 6.0 K/mm3 (4.5-10.0)
[2025-11-02 11:28] LABS: Alanine Aminotransferase 29 U/L (6-35); Albumin Level 4.5 g/dL (3.5-5.1); Alkaline Phosphatase 105 U/L (38-126); Anion Gap 4 mmol/L (4-12); Aspartate Amino Transferase 32 U/L (14-36); Bilirubin,Total 1.7 mg/dL (0.2-1.3); Blood Urea Nitrogen 16 mg/dL (7-17); Calcium 9.5 mg/dL (8.4-10.2); Carbon Dioxide 33 mmol/L (22-30); Chloride 99 mmol/L (98-107); Estimated Glomerular Filt Rate > 60; Glucose 100 mg/dL (65-110); Potassium 4.2 mmol/L (3.4-5.0); Sodium 136 mmol/L (137-145); Total Protein 8.0 g/dL (6.3-8.2)
== END 2025-11-02 10:07 | disposition home or self-care (01) ==
LOC: ANHLAB 10:08
PROVIDERS: PCP Nurse Practitioner Family; Visit Provider Nurse Practitioner Family
DX: I10 Essential (primary) hypertension (principal)
CPT/HCPCS: 36415; 80053; 85025